=== PATIENT | male | born 1935 | race Caucasian/White ===

== ENCOUNTER 2021-01-10 07:12 | Outpatient (REF) | payer MEDICARE, SELFPAY ==
[2021-01-10 08:54] LABS: MANUAL DIFF FLAG NO
[2021-01-10 09:03] LABS: Basophils Percent Auto 0.7 % (0-2); Eosinophils Absolute Auto 0.2 X10*3/uL (0.0-0.4); Eosinophils Percent Auto 2.6 % (0-4); Hematocrit 38.1 % (42-52); Hemoglobin 12.8 g/dl (14.0-18.0); Imm Gran Abs Auto 0.02 X10*3/uL (0.00-0.03); Imm Gran Pct Auto 0.3 % (0.0-0.4); Lymphocytes Absolute Auto 1.8 X10*3/uL (1.2-4.9); Mean Corpuscular HGB Conc 33.6 g/dl (31.0-36.0); Mean Corpuscular Hemoglobin 32.2 pg (27.0-33.0); Mean Platelet Volume 9.8 fL (9.4-12.4); Monocytes Absolute Auto 0.6 X10*3/uL (0.1-1.2); Monocytes Percent Auto 10.5 % (2-11); Neutrophils Absolute Auto 3.4 X10*3/uL (2.0-8.3); Neutrophils Percent Auto 55.9 % (45-73); Platelet Count 207 X10*3/uL (160-400); Red Blood Count 3.97 X10*6/uL (4.60-5.80); Red Cell Distribution Width 12.8 % (11.0-16.0); White Blood Count 6.1 X10*3/uL (4.8-10.8)
[2021-01-10 09:13] LABS: Alanine Aminotransferase 14 U/L (0-40); Albumin Level 3.7 g/dL (3.5-5.0); Alkaline Phosphatase 82 U/L (39-117); Anion Gap 9 (12-20); Aspartate Amino Transferase 21 U/L (5-37); Bilirubin Total 0.7 mg/dL (0.0-1.0); Blood Urea Nitrogen 13 mg/dL (9-16); Calcium 9.2 mg/dL (8.4-10.2); Carbon Dioxide 29 mmol/L (22-29); Chloride 102 mmol/L (96-108); Cholesterol 169 mg/dL; Estimated Glomerular Filt Rate > 60; Glucose Fasting 92 mg/dL (60-99); HDL Cholesterol 59 mg/dL; LDL Cholesterol Calculated 95 mg/dl; Sodium 136 mmol/L (135-145); Total Protein 6.6 g/dL (6.5-8.0); Triglycerides 75 mg/dL
[2021-01-10 09:39] LABS: Prostate Specific Antigen Scr < 0.05 ng/mL (<0.05-4.0); T4 Thyroxine 5.9 ug/dL (4.5-12.0); Thyroid Stimulating Hormone 1.19 uIU/mL (0.32-4.0)
[2021-01-10 09:49] LABS: Folate 15.3 ng/mL (> or = 4.0); Vitamin B12 467 pg/mL (200-900)
== END 2021-01-10 07:13 | disposition home or self-care (01) ==
LOC: HO.LAB 07:12
PROVIDERS: PCP Internal Medicine; Visit Provider Internal Medicine
DX: Z12.5 Encounter for screening for malignant neoplasm of prostate (principal); M19.91 Primary osteoarthritis, unspecified site; D64.9 Anemia, unspecified; E78.00 Pure hypercholesterolemia, unspecified; K59.00 Constipation, unspecified; Z85.46 Personal history of malignant neoplasm of prostate
CPT/HCPCS: 36415; 80053; 80061; 82607; 82746; 84153; 84436; 84443; 85025

== ENCOUNTER 2021-01-17 09:37 | Outpatient (REF) | payer MEDICARE, SELFPAY ==
--- NOTE | ~2021-01-17 | XR_ITS ---
EXAMINATION: XR CHEST CLINICAL INFORMATION: Shortness of breath. COMPARISON: Chest 08/14/2016 TECHNIQUE: 2 views of the chest were obtained. FINDINGS: The lungs are well-expanded and clear of acute pneumonic process. The heart size and pulmonary vascularity is normal. Incidental finding of a calcified pleural plaque left midlung and right diaphragm is stable. There are punctate calcifications seen overlying the chest wall most likely related to costal cartilage. There are not visualized well on the lateral view. No acute cardiopulmonary process seen. Stable left lateral midlung and right diaphragm calcified pleural plaque.
--- NOTE | 2021-01-17 09:44 | ECG_ITS ---
Test Reason : SOB Blood Pressure : / mmHG Vent. Rate : 055 BPM Atrial Rate : 055 BPM P-R Int : 122 ms QRS Dur : 102 ms QT Int : 452 ms P-R-T Axes : 065 046 053 degrees QTc Int : 432 ms Sinus bradycardia Nonspecific ST abnormality Abnormal ECG When compared with ECG of 22-APR-2008 08:13, No significant change was found Referred By: Bobbi Harris Electronically Signed By:Tim Bryan
== END 2021-01-17 09:38 | disposition home or self-care (01) ==
LOC: HO.XRAY 09:37
PROVIDERS: PCP Internal Medicine; Visit Provider Internal Medicine
DX: R06.02 Shortness of breath (principal)
CPT/HCPCS: 71046; 93005

== ENCOUNTER → 2021-01-26 12:55 | Outpatient (BNV) | payer MEDICARE, SELFPAY | PROVIDERS: PCP Internal Medicine; Referring Provider Internal Medicine; Visit Provider Internal Medicine | DX: D64.9 Anemia, unspecified (principal) | CPT/HCPCS: 99203; 99213; 99214; G2211 ==

== ENCOUNTER 2021-04-30 07:08 | Outpatient (REF) | payer MEDICARE, SELFPAY ==
[2021-04-30 09:15] LABS: MANUAL DIFF FLAG NO
[2021-04-30 09:19] LABS: Basophils Absolute Auto 0.1 X10*3/uL (0.0-0.2); Basophils Percent Auto 0.9 % (0-2); Eosinophils Absolute Auto 0.2 X10*3/uL (0.0-0.4); Eosinophils Percent Auto 2.6 % (0-4); Hematocrit 37.1 % (42-52); Hemoglobin 12.4 g/dl (14.0-18.0); Imm Gran Abs Auto 0.02 X10*3/uL (0.00-0.03); Imm Gran Pct Auto 0.3 % (0.0-0.4); Immature Retic Fraction 6.1 % (2.3-13.4); Lymphocytes Absolute Auto 2.2 X10*3/uL (1.2-4.9); Lymphocytes Percent Auto 30.9 % (20-40); Mean Corpuscular HGB Conc 33.4 g/dl (31.0-36.0); Mean Corpuscular Hemoglobin 32.1 pg (27.0-33.0); Mean Corpuscular Volume 96.1 fL (80-98); Mean Platelet Volume 9.5 fL (9.4-12.4); Monocytes Absolute Auto 0.6 X10*3/uL (0.1-1.2); Monocytes Percent Auto 8.4 % (2-11); Neutrophils Percent Auto 56.9 % (45-73); Platelet Count 199 X10*3/uL (160-400); Red Blood Count 3.86 X10*6/uL (4.60-5.80); Red Cell Distribution Width 13.2 % (11.0-16.0); Retic HGB Equivalent 37.4 pg (30.0-35.0); Reticulocyte Percent 1.3 % (0.5-1.8); Reticulocytes Absolute 0.051 X10*6/uL (0.026-0.095); White Blood Count 7.1 X10*3/uL (4.8-10.8)
[2021-04-30 09:35] LABS: Alanine Aminotransferase 14 U/L (0-40); Albumin Level 3.6 g/dL (3.5-5.0); Alkaline Phosphatase 80 U/L (39-117); Anion Gap 11 (12-20); Aspartate Amino Transferase 18 U/L (5-37); Bilirubin Total 0.6 mg/dL (0.0-1.0); Blood Urea Nitrogen 15 mg/dL (9-16); Calcium 8.9 mg/dL (8.4-10.2); Carbon Dioxide 27 mmol/L (22-29); Chloride 101 mmol/L (96-108); Cholesterol 176 mg/dL; Estimated Glomerular Filt Rate > 60; Glucose Random 84 mg/dL (60-115); HDL Cholesterol 52 mg/dL; Iron 108 mcg/dL (45-160); LDL Cholesterol Calculated 109 mg/dl; Potassium 4.9 mmol/L (3.3-5.1); Sodium 134 mmol/L (135-145); Total Protein 6.5 g/dL (6.5-8.0); Triglycerides 77 mg/dL
[2021-04-30 09:59] LABS: Ferritin 181 ng/mL (20-250); Free T4 (Free Thyroxine) 0.85 ng/dL (0.71-1.85); PSA,Total (Free>4and<10) < 0.05 ng/mL (0.00-4.00); Thyroid Stimulating Hormone 1.15 uIU/mL (0.32-4.0)
[2021-04-30 10:10] LABS: Folate 12.1 ng/mL (> or = 4.0); Vitamin B12 279 pg/mL (200-900)
[2021-05-02 15:07] LABS: Percent Iron Saturation 43 % (15-50); Total Iron Binding Capacity 251 mcg/dL (228-428); Unsaturated Iron Binding 143 ug/dL
== END 2021-04-30 07:09 | disposition home or self-care (01) ==
LOC: HO.LAB 07:08
PROVIDERS: PCP Internal Medicine; Visit Provider Internal Medicine
DX: Z12.5 Encounter for screening for malignant neoplasm of prostate (principal); C61 Malignant neoplasm of prostate; E78.00 Pure hypercholesterolemia, unspecified
CPT/HCPCS: 36415; 80053; 80061; 82607; 82728; 82746; 83540; 84153; 84439; 84443; 85025; 85045

== ENCOUNTER 2021-08-13 07:29 | Outpatient (REF) | payer MEDICARE, SELFPAY ==
[2021-08-13 07:52] LABS: MANUAL DIFF FLAG NO
[2021-08-13 08:09] LABS: Basophils Percent Auto 0.2 % (0-2); Eosinophils Percent Auto 0.2 % (0-4); Hematocrit 39.1 % (42.0-52.0); Hemoglobin 13.1 g/dl (14.0-18.0); Imm Gran Abs Auto 0.09 X10*3/uL (0.00-0.03); Imm Gran Pct Auto 0.7 % (0.0-0.4); Immature Retic Fraction 9.3 % (2.3-13.4); Lymphocytes Absolute Auto 2.7 X10*3/uL (1.2-4.9); Lymphocytes Percent Auto 21.8 % (20-40); Mean Corpuscular HGB Conc 33.5 g/dl (31.0-36.0); Mean Corpuscular Hemoglobin 32.3 pg (27.0-33.0); Mean Corpuscular Volume 96.5 fL (80.0-98.0); Mean Platelet Volume 8.8 fL (9.4-12.4); Monocytes Percent Auto 8.3 % (2-11); Neutrophils Absolute Auto 8.6 x10*3/uL (2.0-8.3); Neutrophils Percent Auto 68.8 % (45-73); Platelet Count 269 X10*3/uL (160-400); Red Blood Count 4.05 X10*6/uL (4.60-5.80); Red Cell Distribution Width 12.8 % (11.0-16.0); Retic HGB Equivalent 37.3 pg (30.0-35.0); Reticulocyte Percent 1.5 % (0.5-1.8); White Blood Count 12.5 X10*3/uL (4.8-10.8)
[2021-08-13 08:41] LABS: Alanine Aminotransferase 23 U/L (0-40); Albumin Level 3.8 g/dL (3.5-5.0); Alkaline Phosphatase 79 U/L (39-117); Anion Gap 8 (12-20); Aspartate Amino Transferase 18 U/L (5-37); Bilirubin Total 0.7 mg/dL (0.0-1.0); Blood Urea Nitrogen 20 mg/dL (9-16); Calcium 9.7 mg/dL (8.4-10.2); Carbon Dioxide 29 mmol/L (22-29); Chloride 104 mmol/L (96-108); Cholesterol 184 mg/dL; Estimated Glomerular Filt Rate > 60; Glucose Random 95 mg/dL (60-115); HDL Cholesterol 59 mg/dL; Iron 117 mcg/dL (45-160); LDL Cholesterol Calculated 101 mg/dl; Percent Iron Saturation 40 % (15-50); Potassium 4.4 mmol/L (3.3-5.1); Sodium 137 mmol/L (135-145); Total Iron Binding Capacity 293 mcg/dL (228-428); Total Protein 6.8 g/dL (6.5-8.0); Triglycerides 121 mg/dL; Unsaturated Iron Binding 176 ug/dL
[2021-08-13 09:18] LABS: Ferritin 188 ng/mL (20-250); Free T4 (Free Thyroxine) 0.96 ng/dL (0.71-1.85); Thyroid Stimulating Hormone 1.67 uIU/mL (0.32-4.0)
[2021-08-13 09:23] LABS: Folate 9.9 ng/mL (> or = 4.0); Vitamin B12 1253 pg/mL (200-900)
[2021-08-13 09:50] LABS: Prostate Specific Antigen Scr < 0.05 ng/mL (<0.05-4.0)
== END 2021-08-13 07:30 | disposition home or self-care (01) ==
LOC: HO.LAB 07:29
PROVIDERS: PCP Internal Medicine; Visit Provider Internal Medicine
DX: Z12.5 Encounter for screening for malignant neoplasm of prostate (principal); C61 Malignant neoplasm of prostate; E78.00 Pure hypercholesterolemia, unspecified
CPT/HCPCS: 36415; 80053; 80061; 82607; 82728; 82746; 83540; 84153; 84439; 84443; 85025; 85045

== ENCOUNTER 2021-08-23 08:30 | Outpatient (REF) | payer MEDICARE, SELFPAY ==
--- NOTE | ~2021-08-23 | CT_ITS ---
EXAMINATION: CT ABDOMEN AND PELVIS WITHOUT CONTRAST CLINICAL INFORMATION: Urinary frequency COMPARISON: Previous CT of the abdomen and pelvis May 2014 TECHNIQUE: Multidetector volumetric imaging was performed from the superior aspect of the liver through the pubic symphysis. Sagittal and coronal reformatted images were obtained on the technologist's workstation. This CT examination was performed using dose optimization techniques as appropriate, variously including the following: *Automated exposure control *Adjustment of mA and/or kV according to patient size (this includes techniques or standardized protocols for targeted exams where dose is matched to indication/reason for exam; i.e. extremities or head) *Use of iterative reconstruction technique DLP: 404 mGy-cm FINDINGS: LUNG BASES: There are bilateral calcified pleural plaques. This is similar to 2014 exam. The lung bases are otherwise clear. LIVER, GALLBLADDER, AND BILIARY TREE: There are innumerable liver cysts. This does not appear appreciably changed. There is a question of a small gallstone versus focus of gallbladder wall calcification. This is new from previous exam. No biliary duct dilatation. PANCREAS: Unremarkable. SPLEEN: There is a 2 cm low-attenuation lesion in the spleen. This is stable from older exam from 2013 and probably represents a benign hemangioma. ADRENAL GLANDS: Unremarkable. KIDNEYS AND URETERS: There are innumerable bilateral renal cysts. The kidneys are otherwise unremarkable. No imaging follow-up needed. BLADDER: Unremarkable. GASTROINTESTINAL TRACT: There is diverticulosis of the colon. There is stool throughout the colon suggestive of constipation. The appendix is not seen. There are no laboratory change is seen in the right lower quadrant. ABDOMINAL WALL: There is a reservoir for penile prosthesis in the right rectus muscle. This appears unchanged. No hernia. LYMPH NODES: There is a slightly prominent low-attenuation right retrocrural lymph node measuring 1 cm axial image 15 series 3 that is unchanged. There are small low-attenuation left upper abdominal retroperitoneal lymph nodes that are upper normal in size largest measuring 1 cm in the left periaortic region axial image 22 series 3. No enlarged lymph nodes are seen. No ascites. VASCULAR: Unremarkable. PELVIC VISCERA: The prostate gland has been removed. No pelvic mass is seen. OSSEOUS STRUCTURES: There are degenerative changes of the spine. There is slight increased sclerosis of the left iliac bone, for example axial image 43 series 3. A focal lesion is not seen. This is less conspicuous than seen on prior exam. CT/CT abdomen pelvis wo con IMPRESSION: Diverticulosis of the colon and constipation. Multiple liver and bilateral renal cysts. Question small gallstone versus gallbladder wall calcification. Stable low-attenuation splenic lesion probably representing a benign hemangioma. Stable small retrocrural and upper abdominal retroperitoneal lymph nodes. Post prostatectomy. Bilateral calcified pleural plaques similar to previous exam. Fleischner guidelines were followed.
--- NOTE | ~2021-08-23 | CT_ITS ---
EXAMINATION: CT HEAD WITHOUT CONTRAST CLINICAL INFORMATION: Headache. COMPARISON: CT brain 11/26/2011. TECHNIQUE: Contiguous axial imaging was performed from the skull base to vertex without intravenous administration of contrast. This CT examination was performed using dose optimization techniques as appropriate, variously including the following: *Automated exposure control *Adjustment of mA and/or kV according to patient size (this includes techniques or standardized protocols for targeted exams where dose is matched to indication/reason for exam; i.e. extremities or head) *Use of iterative reconstruction technique DLP: 675 mGy-cm FINDINGS: There is no evidence of acute intracranial hemorrhage or territorial infarction. There is a punctate hypodensities in the right anterior internal capsule likely small lacunar infarctions; new compared to 12/06/2011 exam. No abnormal mass effect or midline shift is seen. Arguello to white matter differentiation is well preserved. No extra-axial fluid collections are identified. The lateral ventricles are symmetrical in size and configuration with moderate enlargement. There is mild prominence of cortical sulci. There is diffuse periventricular hypodensity suggestive of chronic small vessel ischemic changes. The osseous structures and soft tissues are normal. The mastoid air cells and visualized portions of the paranasal sinuses are well aerated. CT/CT head/brain wo con IMPRESSION: No acute intracranial process seen. Small lacunar infarctions anterior limb right internal capsule, new since the previous CT exam 12/06/2011. Moderate cerebral volume loss with chronic small vessel ischemic changes.
== END 2021-08-23 08:31 | disposition home or self-care (01) ==
LOC: HO.CT 08:30
PROVIDERS: PCP Internal Medicine; Visit Provider Internal Medicine
DX: R35.0 Frequency of micturition (principal); R31.9 Hematuria, unspecified; E78.00 Pure hypercholesterolemia, unspecified
CPT/HCPCS: 70450; 74176

== ENCOUNTER 2021-09-25 07:05 | Outpatient (REF) | payer MEDICARE, SELFPAY ==
[2021-09-25 08:15] LABS: Alanine Aminotransferase 19 U/L (0-40); Albumin Level 3.7 g/dL (3.5-5.0); Alkaline Phosphatase 81 U/L (39-117); Anion Gap 10 (12-20); Aspartate Amino Transferase 20 U/L (5-37); Bilirubin Total 0.5 mg/dL (0.0-1.0); Blood Urea Nitrogen 13 mg/dL (9-16); Calcium 9.5 mg/dL (8.4-10.2); Carbon Dioxide 29 mmol/L (22-29); Chloride 104 mmol/L (96-108); Cholesterol 189 mg/dL; Estimated Glomerular Filt Rate > 60; Glucose Random 96 mg/dL (60-115); HDL Cholesterol 56 mg/dL; LDL Cholesterol Calculated 108 mg/dl; Potassium 4.8 mmol/L (3.3-5.1); Sodium 138 mmol/L (135-145); Triglycerides 126 mg/dL
== END 2021-09-25 07:06 | disposition home or self-care (01) ==
LOC: HO.LAB 07:05
PROVIDERS: PCP Internal Medicine; Visit Provider Internal Medicine
DX: E78.00 Pure hypercholesterolemia, unspecified (principal)
CPT/HCPCS: 36415; 80053; 80061

== ENCOUNTER 2021-12-18 07:18 | Outpatient (REF) | payer MEDICARE, SELFPAY ==
[2021-12-18 07:40] LABS: MANUAL DIFF FLAG NO
[2021-12-18 08:01] LABS: Basophils Absolute Auto 0.1 X10*3/uL (0.0-0.2); Basophils Percent Auto 0.5 % (0-2); Eosinophils Percent Auto 0.4 % (0-4); Hematocrit 38.7 % (42.0-52.0); Hemoglobin 12.9 g/dl (14.0-18.0); Imm Gran Abs Auto 0.07 X10*3/uL (0.00-0.03); Imm Gran Pct Auto 0.8 % (0.0-0.4); Lymphocytes Absolute Auto 2.3 X10*3/uL (1.2-4.9); Lymphocytes Percent Auto 24.8 % (20-40); Mean Corpuscular HGB Conc 33.3 g/dl (31.0-36.0); Mean Corpuscular Hemoglobin 32.4 pg (27.0-33.0); Mean Corpuscular Volume 97.2 fL (80.0-98.0); Mean Platelet Volume 8.4 fL (9.4-12.4); Monocytes Absolute Auto 0.8 X10*3/uL (0.1-1.2); Neutrophils Percent Auto 64.5 % (45-73); Platelet Count 224 X10*3/uL (160-400); Red Blood Count 3.98 X10*6/uL (4.60-5.80); Red Cell Distribution Width 12.5 % (11.0-16.0); White Blood Count 9.3 X10*3/uL (4.8-10.8)
[2021-12-18 08:23] LABS: Alanine Aminotransferase 18 U/L (0-40); Albumin Level 3.5 g/dL (3.5-5.0); Alkaline Phosphatase 87 U/L (39-117); Anion Gap 10 (12-20); Aspartate Amino Transferase 18 U/L (5-37); Bilirubin Total 0.5 mg/dL (0.0-1.0); Blood Urea Nitrogen 13 mg/dL (9-16); Calcium 9.4 mg/dL (8.4-10.2); Carbon Dioxide 28 mmol/L (22-29); Chloride 98 mmol/L (96-108); Cholesterol 163 mg/dL; Estimated Glomerular Filt Rate > 60; Glucose Random 92 mg/dL (60-115); HDL Cholesterol 56 mg/dL; LDL Cholesterol Calculated 94 mg/dl; Potassium 4.4 mmol/L (3.3-5.1); Sodium 132 mmol/L (135-145); Total Protein 6.5 g/dL (6.5-8.0); Triglycerides 67 mg/dL
[2021-12-18 08:51] LABS: Prostate Specific Antigen < 0.05 ng/mL (<0.05-4.0)
== END 2021-12-18 07:19 | disposition home or self-care (01) ==
LOC: HO.LAB 07:18
PROVIDERS: PCP Internal Medicine; Visit Provider Internal Medicine
DX: Z12.5 Encounter for screening for malignant neoplasm of prostate (principal); E78.00 Pure hypercholesterolemia, unspecified; C61 Malignant neoplasm of prostate
CPT/HCPCS: 36415; 80053; 80061; 84153; 85025

== ENCOUNTER 2022-01-11 08:03 | Emergency (ER) | payer MEDICARE, SELFPAY ==
[2022-01-11] VITALS (14 sets, daily range): BP systolic 121–176; BP diastolic 73–101; PULSE 66–98; RESP 14–18; TEMP 36.4–36.6; O2SAT 96–99; BMI 20.8
--- NOTE | ~2022-01-11 | CT_ITS ---
EXAMINATION: CT CHEST WITHOUT CONTRAST CLINICAL INFORMATION: Weakness. Suspected pneumonia. COMPARISON: Chest radiograph done on 01/17/2021. TECHNIQUE: Multidetector volumetric CT imaging of the chest was done. Axial MIP volume rendering provided. Sagittal and coronal reformatted images were obtained. This CT examination was performed using dose optimization techniques as appropriate, variously including the following: *Automated exposure control *Adjustment of mA and/or kV according to patient size (this includes techniques or standardized protocols for targeted exams where dose is matched to indication/reason for exam; i.e. extremities or head) *Use of iterative reconstruction technique DLP: 273.98 mGy-cm FINDINGS: RIGGING SLINGER: Multiple calcified pleural plaques are present bilaterally, similar to prior chest radiograph done on 01/17/2021. LUNGS: A few scattered bilateral multilobar mostly calcified lung parenchymal nodules are noted, most consistent with granulomas. No evidence of any dense airspace consolidation or mass. The tracheobronchial tree is patent. MEDIASTINUM: The mediastinum is normal. PLEURA: Numerous predominantly calcified bilateral extensive pleural plaques are noted including peridiaphragmatic calcified plaques. 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 No evidence of any pleural mass or pleural effusion. AXILLA: No lymphadenopathy. UPPER ABDOMEN: Remarkable for lobulated circumscribed hypodense lesion along the subdiaphragmatic surface of the liver. Additional similar-appearing circumscribed multifocal hypodense lesions are also noted within the remainder of the liver, unchanged since prior study dated 08/23/2021. The dominant subdiaphragmatic lesion currently measures approximately 4.5 cm at its maximum dimension with Hounsfield value of 17, consistent with cyst. OSSEOUS STRUCTURES: No suspicious focal lesion. CT/CT chest wo con IMPRESSION: 1. Numerous predominantly calcified bilateral extensive pleural plaques are noted including peridiaphragmatic calcified plaque throughout the entire chest, most consistent with asbestosis. No evidence of any pleural based soft tissue mass or pleural effusion. 2. A few scattered bilateral multilobar mostly calcified lung parenchymal nodules are also noted, most consistent with granulomatous disease. No evidence of any dense airspace consolidation or mass. 3. Stable multiple hepatic cysts. Fleischner guidelines were followed.
--- NOTE | ~2022-01-11 | CT_ITS ---
EXAMINATION: CT CERVICAL SPINE WITHOUT CONTRAST CLINICAL INFORMATION: Neck pain status post fall. COMPARISON: None TECHNIQUE: Multiple axial images of the cervical spine were obtained without the administration of intravenous contrast. Coronal and sagittal reformatted images were obtained. This CT examination was performed using dose optimization techniques as appropriate, variously including the following: *Automated exposure control *Adjustment of mA and/or kV according to patient size (this includes techniques or standardized protocols for targeted exams where dose is matched to indication/reason for exam; i.e. extremities or head) *Use of iterative reconstruction technique DLP: 346.95 mGy-cm FINDINGS: There is normal cervical lordosis and spinal alignment. 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 The odontoid process is intact with mild to moderate articular degenerative changes. The neural foramina are patent. Mild multilevel bilateral facet arthropathy seen. The spinous processes are intact. The cervical soft tissues are unremarkable. There is no lymphadenopathy. The visualized thyroid gland is unremarkable. Mild biapical scarring without abnormality. CT/CT cervical spine wo con IMPRESSION: Mild to moderate multilevel degenerative changes without acute abnormality. Fleischner guidelines were followed.
--- NOTE | ~2022-01-11 | XR_ITS ---
EXAMINATION: CR X-RAY LUMBAR SPINE, SACRUM CLINICAL INFORMATION: Back pain status post fall. COMPARISON: None TECHNIQUE: 3 views each of the lumbar spine and sacrum were obtained. FINDINGS: Generalized osteopenia. Mild to moderate multilevel degenerative changes are seen in the lumbar spine most pronounced at L4-L5 with minimal grade 1 anterolisthesis. Mild multilevel facet arthropathy seen bilaterally, most pronounced at L4-L5 and L5-S1. There is normal sacrococcygeal curvature. No acute fractures seen. The soft tissues are unremarkable. Multiple surgical clips overlie the inferior pelvis. XR/XR lumbar spine 2-3V IMPRESSION: Generalized osteopenia and multilevel degenerative changes in the lumbar spine without acute abnormality. Minimal grade 1 anterolisthesis at L4-L5 is likely degenerative in nature.
--- NOTE | ~2022-01-11 | CT_ITS ---
EXAMINATION: CT HEAD WITHOUT CONTRAST CLINICAL INFORMATION: Weakness, fall. Rule out intracranial abnormality. COMPARISON: 08/23/[address] scan. TECHNIQUE: Contiguous axial imaging was performed from the skull base to vertex without intravenous administration of contrast. Coronal and sagittal reformatted images were obtained. This CT examination was performed using dose optimization techniques as appropriate, variously including the following: *Automated exposure control *Adjustment of mA and/or kV according to patient size (this includes techniques or standardized protocols for targeted exams where dose is matched to indication/reason for exam; i.e. extremities or head) *Use of iterative reconstruction technique DLP: 1386 mGy-cm FINDINGS: There is mild widening of the cortical sulci and associated ventriculomegaly. Mild periventricular microvascular changes are seen. The lateral ventricles are symmetrical. The third and fourth ventricles are in their normal midline position. The basilar and prepontine cisterns are unremarkable. There is no acute intra or extracerebral abnormality. There is no mass effect or midline shift. Sections through the bony calvarium are unremarkable. The orbits are intact. The paranasal sinuses show retention cyst versus inflammatory polyps at the bases of the maxillary sinuses bilaterally. The mastoid air cells are clear. CT/CT head/brain wo con IMPRESSION: No acute intracranial pathology.
--- NOTE | ~2022-01-11 | XR_ITS ---
EXAMINATION: CR X-RAY LUMBAR SPINE, SACRUM CLINICAL INFORMATION: Back pain status post fall. COMPARISON: None TECHNIQUE: 3 views each of the lumbar spine and sacrum were obtained. FINDINGS: Generalized osteopenia. Mild to moderate multilevel degenerative changes are seen in the lumbar spine most pronounced at L4-L5 with minimal grade 1 anterolisthesis. Mild multilevel facet arthropathy seen bilaterally, most pronounced at L4-L5 and L5-S1. There is normal sacrococcygeal curvature. No acute fractures seen. The soft tissues are unremarkable. Multiple surgical clips overlie the inferior pelvis. XR/XR sacrum coccyx min 2V IMPRESSION: Generalized osteopenia and multilevel degenerative changes in the lumbar spine without acute abnormality. Minimal grade 1 anterolisthesis at L4-L5 is likely degenerative in nature.
--- NOTE | 2022-01-11 09:05 | ECG_ITS ---
Test Reason : weakness Blood Pressure : / mmHG Vent. Rate : 079 BPM Atrial Rate : 079 BPM P-R Int : 216 ms QRS Dur : 104 ms QT Int : 392 ms P-R-T Axes : 062 024 063 degrees QTc Int : 449 ms Sinus rhythm with 1st degree A-V block Otherwise normal ECG When compared with ECG of 17-JAN-2021 10:02, VA interval has increased Referred By: Tab Cummins Electronically Signed By:EFREM BAY MD
[2022-01-11] MEDS: 0.9 % Sodium Chloride 1,000 ML 999 ML IV (09:27)
--- NOTE | 2022-01-11 09:44 | ED_ITS ---
HPI - General Adult General Chief complaint: Fall Stated complaint: Fall t-1, weakness Time Seen by Provider: 01/11/22 08:47 Source: patient Mode of arrival: ambulatory Limitations: no limitations History of Present Illness HPI narrative: 87-year-old male with past medical history of unsteady gait for the past 6 mo nths, BPH, CVA, anxiety/depression, prostate cancer cured, and hyper cholesterolemia presents to ED for fall yesterday and weakness for the past 6 months with decreased appetite. Patient states yesterday he was sitting down when he stood up take a step and his legs feel weak which caused him to fall onto his buttocks. Patient states he grabbed the handle on the gazebo to break his fall. Patient denies hitting head or loss of consciousness. Patient denies having any chest pain, shortness of breath, abdominal pain, headache, facial droop, loss of vision, slurred speech, passing out or any paralysis of extremities. Patient states having trouble with his gait you due to legs at time given out or feeling weak has been occurring for the past 6 months. Patient also states having loss of appetite and generalized weakness for the past 6 months. Patient states primary care provider is not sure was going on. Daughter states patient's and patient has been going to depression and has been choosing not to eat due to lack of interest in eating. She states when patient is in social [place] he feels better and eats but the past couple months he has been alone and has caused him to going to depression. Daughter believes depression is due to patient not eating which is leading to his generalized weakness. Daughter states patient did not eat yesterday. Patient admits not eating yesterday. Related Data Home Medications Medication Instructions Recorded Confirmed cholecalciferol (vitamin D3) 25 25 mcg PO DAILY 01/17/21 01/01/22 mcg (1,000 unit) capsule desmopressin 0.1 mg tablet 0.1 mg PO BEDTIME tab 01/17/21 01/01/22 Previous Rx's Medication Instructions Recorded ascorbic acid (vitamin C) 1,000 mg 1,000 mg PO Q12H #30 tab 11/15/20 tablet,extended release aspirin 81 mg tablet,delayed 81 mg PO DAILY #14 tab 11/15/20 release (Adult Low Dose Aspirin) glucosamine HCl 500 mg tablet 500 mg PO DAILY #20 tab 11/15/20 oxybutynin chloride 15 mg 30 mg PO DAILY #7 tab 11/15/20 tablet,extended release 24 hr triamcinolone acetonide 0.5 % 1 appl TOPICAL BID #15 g 05/04/21 topical cream atorvastatin 80 mg tablet 80 mg PO DAILY 30 Days #90 tab 12/31/21 sennosides 8.6 mg-docusate sodium 2 tab-cap PO BEDTIME 30 Days #60 01/01/22 50 mg tablet (Senna Plus) tab sertraline 25 mg tablet 25 mg PO DAILY #30 tab 01/01/22 celecoxib 200 mg capsule 200 mg PO DAILY #30 cap 01/04/22 psyllium husk-calcium 1 gram-60 mg 1 cap PO DAILY 30 Days #30 cap 01/04/22 capsule (Metamucil Plus Calcium) Allergies Allergy/AdvReac Type Severity Reaction Status Date / Time No Known Allergies Allergy Mild N/A Verified 01/01/22 09:18 Review of Systems Review of Systems: Generalized weakness for the past 6 months. Loss of appetite for the past 6 months. Depression. Fall unto buttocks. Yes all other systems are reviewed and are negative [facility] Past Medical History Medical History (Updated 01/11/22 @ 17:14 by FRANCIA Barakat) Anxiety and depression Hypercholesterolemia Low sodium levels Osteoarthritis, shoulder Prostate cancer Venous insufficiency Surgical History Erectile dysfunction following urethral surgery History of radical prostatectomy Social History Social History (Updated 10/02/21 @ 09:02 by Danitza Goodman) Housing: House Alcohol intake: current Alcohol intake frequency: a few times a month Patient Tobacco Use Status: Never used Tobacco e-Cigarette/Vaping Use: Never Used Second Hand Smoke Exposure: No Advance Directives Date on File: 08/24/21 service: Yes Current occupational status: retired 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, [employer] Cognitive needs: No Hearing needs: No Vision needs: Yes Physical Exam ED Vital Signs: Vital Signs - 24 hr 01/11/22 08:05 01/11/22 09:23 01/11/22 10:41 Temperature 97.6 F Pulse Rate 88 84 72 Respiratory Rate 17 16 Blood Pressure 133/93 H 165/101 H 176/87 H Pulse Oximetry 97 96 01/11/22 11:45 01/11/22 11:47 01/11/22 13:51 Temperature Pulse Rate 72 84 66 Respiratory Rate Blood Pressure 129/75 173/84 H Pulse Oximetry 97 01/11/22 13:52 01/11/22 13:53 01/11/22 13:55 Temperature Pulse Rate 70 82 Respiratory Rate Blood Pressure 158/85 H 133/82 133/82 Pulse Oximetry 01/11/22 15:23 01/11/22 16:29 01/11/22 16:30 Temperature 97.9 F Pulse Rate 73 82 89 Respiratory Rate 14 Blood Pressure 145/89 H 130/73 132/85 Pulse Oximetry 97 01/11/22 16:31 01/11/22 16:33 Temperature 97.7 F Pulse Rate 98 81 Respiratory Rate 18 Blood Pressure 121/78 130/73 Pulse Oximetry 99 BMI result Body Mass Index 20.8 Const General: cooperative, healthy appearing, comfortable, no acute distress, well developed, alert, awake and Physically active Orientation/consciousness: patient oriented x3 HENMT Head: Yes normal to inspection, Yes No palpable skull fracture present, Yes normocephalic and Yes atraumatic Ears: hearing grossly normal bilaterally, external ears normal, TM's normal bilaterally, EAC's normal, mastoids normal and no periauricular adenopathy Eyes General: appearance normal, both eyes and all related structures Neck Neck: Yes normal visual inspection, Yes full ROM, Yes no lymphadenopathy, Yes no meningeal signs, Yes trachea midline, Yes supple, No anterior neck swelling and No tender Chest Chest palpation & inspection: normal inspection of the chest and normal palpation of entire chest wall Resp Effort & Inspection: normal respiratory effort and able to speak in complete sentences Auscultation: clear to auscultation bilaterally Cardio Jugular venous distension: no JVD Heart sounds: S1 normal heart sound present and S2 normal heart sound present GI Inspection: Yes normal to inspection and No abdominal wall ecchymosis Palpation (GI): Soft to palpation, not firm, nontender, no guarding and not rigid General: No CVA tenderness and Yes no CVA tenderness Back/Spine/Pelvis Back: no CVA tenderness, No CVA tenderness and No back tenderness Skin General skin exam: no rashes or lesions noted and elasticity normal Neuro Other: Negative for any facial droop. Negative for slurred speech. Negative pronator drift. All extremities equal strength 5+. Negative Romberg. [id number] rapid eye movement intact. General: patient oriented x3, gait normal (baseline ambulate with cane), no meningeal signs and CN's II-XI intact bilaterally Extrem Other: Negative for any swelling, pitting edema, calf tenderness General: Yes normal to inspection and Yes full ROM Psych Appearance: grossly normal, well kempt and not disheveled NIH Stroke Scale Internal: Initial- Upon Arrival Level of Consciousness: Alert Level of Consciousness Questions: Answers both questions correctly Level of Consciousness Commands: Performs both tasks correctly Best Gaze: Normal Visual: No visual loss Facial Palsy: Normal Motor Arm (Right): No drift Motor Arm (Left): No drift Motor Leg (Right): No drift Motor Leg (Left): No drift Limb Ataxia: Absent Sensory: Normal Best Language: No aphasia Dysarthia: Normal Extinction and Inattention: No abnormality Score: 0 Course Course Course Narrative: Patient's symptoms are mechanical fall but will do medical evaluation due to weakness me she does not electrolyte deficiency and cardiac activity. Negative for any neuro deficits but will do head CT scan due to fall not being witnessed. Reevaluation(s) Reevaluation #1: Patient positive orthostatics. Sodium 129. First troponin negative. EKG negative STEMI. Symptoms most likely due to the hydration from not eating. Images are normal and negative for any fractures or brain bleed chest CT negative for any pneumonia but does shows epis ptosis. Patient has no respiratory complaints. Time: 12:50 Reevaluation #2: Orthostatics improved and hyponatremia resolved. Symptoms were due to dehydration. Presently no need for admission. Daughter called and informed patient should be encouraged to eat and drink fluids and should follow up with primary care provider. She was also informed patient he needs to be evaluated by his primary care for depression. Time: 17:10 Medical Decision Making MDM Narrative Medical decision making narrative: Dehydration orthostatic hypotension resolved Lab Data Result diagrams: 01/11/22 09:34 01/11/22 14:02 Labs: Lab Results 01/11/22 01/11/22 01/11/22 Range/Units 09:34 09:34 09:34 WBC 6.6 (4.8-10.8) X10*3/uL RBC 4.01 L (4.60-5.80) X10*6/uL Hgb 13.0 L (14.0-18.0) g/dl Hct 37.4 L (42.0-52.0) % MCV 93.3 (80.0-98.0) fL MCH 32.4 (27.0-33.0) pg MCHC 34.8 (31.0-36.0) g/dl RDW 12.4 (11.0-16.0) % Plt Count 220 (160-400) X10*3/uL MPV 8.8 L (9.4-12.4) fL Immature Gran % (Auto) 0.5 H (0.0-0.4) % Neut % (Auto) 64.0 (45-73) % Lymph % (Auto) 21.8 (20-40) % [place] % (Auto) 12.6 H (2-11) % Eos % (Auto) 0.6 (0-4) % Baso % (Auto) 0.5 (0-2) % Lymph # (Auto) 1.4 (1.2-4.9) X10*3/uL [place] # (Auto) 0.8 (0.1-1.2) X10*3/uL Eos # (Auto) 0.0 (0.0-0.4) X10*3/uL Baso # (Auto) 0.0 (0.0-0.2) X10*3/uL Abs Immat Gran (auto) 0.03 (0.00-0.03) X10*3/uL Absolute Neuts (auto) 4.2 (2.0-8.3) x10*3/uL Absolute Nucleated RBC 0.000 (0.0-0.012) X10*3/uL Nucleated RBC % (auto) 0.0 (0.0-0.2) /100WBC Sodium 129 L (135-145) mmol/L Potassium 4.8 (3.3-5.1) mmol/L Chloride 95 L (96-108) mmol/L Carbon Dioxide 28 (22-29) mmol/L Anion Gap 11 L (12-20) BUN 9 (9-16) mg/dL Creatinine 0.82 (0.5-1.4) mg/dL Estim Creat Clear Calc 60.1 Estimated GFR > 60 Random Glucose 92 (60-115) mg/dL Calcium 9.6 (8.4-10.2) mg/dL Magnesium 2.3 (1.6-2.6) mg/dL Total Bilirubin 0.6 (0.0-1.0) mg/dL AST 20 (5-37) U/L ALT 16 (0-40) U/L Alkaline Phosphatase 82 (39-117) U/L Total Creatine Kinase 93 (38-174) U/L Troponin I High Sens 4.7 (<3.5-35.0) ng/L Total Protein 6.7 (6.5-8.0) g/dL Albumin 3.6 (3.5-5.0) g/dL Lipase 29 (8-78) U/L Urine Color Urine Appearance Urine pH (5.0-8.0) Ur Specific [place] (1.005-1.025) Urine Protein (NEG-TRACE) MG/DL Urine Glucose (UA) (NEG) MG/DL Urine Ketones (NEG) MG/DL Urine Blood (NEG) Urine Nitrite (NEG) Ur Leukocyte Esterase (NEG) Urine RBC (0) /HPF Urine WBC (0-4) /HPF Ur Squamous Epith Cells /LPF Urine Bacteria /LPF 01/11/22 01/11/22 01/11/22 Range/Units 09:34 14:02 14:02 WBC (4.8-10.8) X10*3/uL RBC (4.60-5.80) X10*6/uL Hgb (14.0-18.0) g/dl Hct (42.0-52.0) % MCV (80.0-98.0) fL MCH (27.0-33.0) pg MCHC (31.0-36.0) g/dl RDW (11.0-16.0) % Plt Count (160-400) X10*3/uL MPV (9.4-12.4) fL Immature Gran % (Auto) (0.0-0.4) % Neut % (Auto) (45-73) % Lymph % (Auto) (20-40) % [place] % (Auto) (2-11) % Eos % (Auto) (0-4) % Baso % (Auto) (0-2) % Lymph # (Auto) (1.2-4.9) X10*3/uL [place] # (Auto) (0.1-1.2) X10*3/uL Eos # (Auto) (0.0-0.4) X10*3/uL Baso # (Auto) (0.0-0.2) X10*3/uL Abs Immat Gran (auto) (0.00-0.03) X10*3/uL Absolute Neuts (auto) (2.0-8.3) x10*3/uL Absolute Nucleated RBC (0.0-0.012) X10*3/uL Nucleated RBC % (auto) (0.0-0.2) /100WBC Sodium 135 (135-145) mmol/L Potassium 4.5 (3.3-5.1) mmol/L Chloride 101 (96-108) mmol/L Carbon Dioxide 28 (22-29) mmol/L Anion Gap 11 L (12-20) BUN 7 L (9-16) mg/dL Creatinine 0.73 (0.5-1.4) mg/dL Estim Creat Clear Calc 67.6 Estimated GFR > 60 Random Glucose 92 (60-115) mg/dL Calcium 9.2 (8.4-10.2) mg/dL Magnesium (1.6-2.6) mg/dL Total Bilirubin (0.0-1.0) mg/dL AST (5-37) U/L ALT (0-40) U/L Alkaline Phosphatase (39-117) U/L Total Creatine Kinase (38-174) U/L Troponin I High Sens 4.7 (<3.5-35.0) ng/L Total Protein (6.5-8.0) g/dL Albumin (3.5-5.0) g/dL Lipase (8-78) U/L Urine Color YELLOW Urine Appearance CLEAR Urine pH 6.5 (5.0-8.0) Ur Specific [place] <= 1.005 (1.005-1.025) Urine Protein NEG (NEG-TRACE) MG/DL Urine Glucose (UA) NEG (NEG) MG/DL Urine Ketones NEG (NEG) MG/DL Urine Blood 1+ H (NEG) Urine Nitrite NEG (NEG) Ur Leukocyte Esterase NEG (NEG) Urine RBC 1-4 (0) /HPF Urine WBC 0 (0-4) /HPF Ur Squamous Epith Cells NONE /LPF Urine Bacteria NONE /LPF ECG Data Interpretation: Sinus rhythm with 1st degree AV block. Ventricular rate 79. Pr interval 216. QRS 104 pr QTC 449. Negative STEMI Discharge Plan Discharge Clinical Impression: Acute dehydration Patient Disposition: Home, Self-Care Instructions: Dehydration (ED) Additional Instructions: Your EKG and blood work came back negative for heart attack. Your symptoms are due to dehydration which caused your blood pressure to initially dropped. Your blood pressure corrected with IV fluids. Hours encourage you to drink fluids and eat food. Please follow-up with your primary care provider. Return to the ED for any slurred speech, facial droop, paralysis of extremities, dizziness, headache, chest pain, shortness of breath, nausea, vomiting, leg swelling, calf pain, dysuria, hematuria, or any other concerning symptoms. Prescriptions: No Action oxybutynin chloride 15 mg tablet extended release 24 hr 30 mg PO DAILY Qty: 7 0RF ascorbic acid (vitamin C) 1,000 mg tablet extended release 1,000 mg PO Q12H Qty: 30 0RF glucosamine HCl 500 mg tablet 500 mg PO DAILY Qty: 20 0RF Rx Instructions: administer with a meal aspirin [Adult Low Dose Aspirin] 81 mg tablet,delayed release (DR/EC) 81 mg PO DAILY Qty: 14 0RF atorvastatin 80 mg tablet 80 mg PO DAILY 30 Days Qty: 90 3RF celecoxib 200 mg capsule 200 mg PO DAILY Qty: 30 0RF Metamucil Plus Calcium 1-60 gram-mg capsule 1 cap PO DAILY 30 Days Qty: 30 11RF Rx Instructions: administer with large glass of water cholecalciferol (vitamin D3) 25 mcg (1,000 unit) capsule 25 mcg PO DAILY 0RF desmopressin 0.1 mg tablet 0.1 mg PO BEDTIME 0RF triamcinolone acetonide 0.5 % cream 1 appl topical BID Qty: 15 1RF sertraline 25 mg tablet 25 mg PO DAILY Qty: 30 2RF sennosides-docusate sodium [Senna Plus] 8.6-50 mg tablet 2 tab-cap PO BEDTIME 30 Days Qty: 60 7RF Interventions: ED Discharge Assessment Last Done: 01/11/22 17:58 Discharge Date/Time: 01/11/22 17:58 Print Language: Bhutanese
[2022-01-11 09:45] LABS: MANUAL DIFF FLAG NO
[2022-01-11 09:51] LABS: Appearance Urine CLEAR; Color Urine YELLOW; Glucose Urine UA NEG (NEG); Leukocyte Esterase Urine NEG (NEG); Nitrite Urine NEG (NEG); PH 6.5 (5.0-8.0); Specific Gravity - Urine <= 1.005 (1.005-1.025); UACC Culture Trigger NO; Urine Blood 1+ (NEG); Urine Ketones NEG (NEG); Urine Protein NEG (NEG-TRACE)
[2022-01-11 09:52] LABS: Basophils Percent Auto 0.5 % (0-2); Eosinophils Percent Auto 0.6 % (0-4); Hematocrit 37.4 % (42.0-52.0); Imm Gran Abs Auto 0.03 X10*3/uL (0.00-0.03); Imm Gran Pct Auto 0.5 % (0.0-0.4); Lymphocytes Absolute Auto 1.4 X10*3/uL (1.2-4.9); Lymphocytes Percent Auto 21.8 % (20-40); Mean Corpuscular HGB Conc 34.8 g/dl (31.0-36.0); Mean Corpuscular Hemoglobin 32.4 pg (27.0-33.0); Mean Corpuscular Volume 93.3 fL (80.0-98.0); Mean Platelet Volume 8.8 fL (9.4-12.4); Monocytes Absolute Auto 0.8 X10*3/uL (0.1-1.2); Monocytes Percent Auto 12.6 % (2-11); Neutrophils Absolute Auto 4.2 x10*3/uL (2.0-8.3); Platelet Count 220 X10*3/uL (160-400); Red Blood Count 4.01 X10*6/uL (4.60-5.80); Red Cell Distribution Width 12.4 % (11.0-16.0); White Blood Count 6.6 X10*3/uL (4.8-10.8)
[2022-01-11 10:03] LABS: Alanine Aminotransferase 16 U/L (0-40); Albumin Level 3.6 g/dL (3.5-5.0); Alkaline Phosphatase 82 U/L (39-117); Anion Gap 11 (12-20); Aspartate Amino Transferase 20 U/L (5-37); Bilirubin Total 0.6 mg/dL (0.0-1.0); Blood Urea Nitrogen 9 mg/dL (9-16); Calcium 9.6 mg/dL (8.4-10.2); Carbon Dioxide 28 mmol/L (22-29); Chloride 95 mmol/L (96-108); Creatinine Clr Calc Pharmacy 60.1; Estimated Glomerular Filt Rate > 60; Glucose Random 92 mg/dL (60-115); Lipase 29 U/L (8-78); Magnesium 2.3 mg/dL (1.6-2.6); Potassium 4.8 mmol/L (3.3-5.1); Sodium 129 mmol/L (135-145); Total Protein 6.7 g/dL (6.5-8.0)
[2022-01-11 10:04] LABS: WBC Urine 0 /HPF (0-4)
[2022-01-11 10:08] LABS: Troponin-I High Sensitivity 4.7 ng/L (<3.5-35.0)
[2022-01-11] MEDS: 0.9 % Sodium Chloride 500 ML IV (12:47)
[2022-01-11 14:29] LABS: Anion Gap 11 (12-20); Blood Urea Nitrogen 7 mg/dL (9-16); Calcium 9.2 mg/dL (8.4-10.2); Carbon Dioxide 28 mmol/L (22-29); Chloride 101 mmol/L (96-108); Creatinine Clr Calc Pharmacy 67.6; Estimated Glomerular Filt Rate > 60; Glucose Random 92 mg/dL (60-115); Potassium 4.5 mmol/L (3.3-5.1); Sodium 135 mmol/L (135-145)
[2022-01-11 14:36] LABS: Troponin-I High Sensitivity 4.7 ng/L (<3.5-35.0)
== END 2022-01-11 17:58 | disposition home or self-care (01) ==
PROVIDERS: Physician Assistant; Emergency Provider Emergency Medicine Emergency Medical Services; PCP Internal Medicine
DX: E86.0 Dehydration (principal); E87.1 Hypo-osmolality and hyponatremia; M54.2 Cervicalgia; M54.9 Dorsalgia, unspecified; I44.0 Atrioventricular block, first degree; Z86.73 Personal history of transient ischemic attack (TIA), and cerebral infarction without residual deficits; Z91.81 History of falling
CPT/HCPCS: 36415; 70450; 71250; 72100; 72125; 72220; 80048; 80053; 81001; 82550; 83690; 83735; 84484; 85025; 93005; 96360; 96361; 99284

== ENCOUNTER → 2022-02-26 08:13 | Outpatient (REF) | payer MEDICARE, SELFPAY ==
--- NOTE | 2022-02-26 08:17 | CA_ITS ---
Transthoracic Echocardiogram Patient (Last, First, Middle): Sukhwinder Maynard L Gender: Male Date of : 1935 Age: 87 Procedure Date: 02/26/2022 Procedure Type: Transthoracic Echocardiogram Location: OP Height: 177.8 cm Weight: 63.5 kg BSA: 1.79 m2 Heart Rate: 57 bpm BP: 132 / 64 mmHg Collector: SB Referring MD: Bobbi Harris MD Benefits Consulting Analyst: Wilson Thakur MD Symptoms: I63.9 - Cerebral infarction, unspecified Study Quality: Adequate ECG Rhythm: Bradycardia Conclusions: - 1. Normal LV systolic function with impaired relaxation filling pattern 2. Mild aortic and mitral regurgitation 3. No gross pericardial effusion Findings Left Ventricle Normal left ventricular size, thickness, and systolic function. The visually estimated ejection fraction is between 55-60%. Spectral Doppler is indicative of an impaired relaxation filling pattern. E/E prime ratio is between 8 and 15 consistent with indeterminate filling pressures. Right Ventricle Normal right ventricular cavity size and systolic function. Atria The left atrium is normal in size. There is lipomatous hypertrophy of the interatrial septum. There is no evidence of interatrial shunt. The right atrium is normal in size. Aortic Valve There is mild calcification of the aortic valve. There is no aortic valve stenosis. There is mild aortic valve regurgitation. Mitral Valve There is mild anterior and posterior mitral leaflet thickening. There is mild mitral valve regurgitation. There is no mitral valve stenosis. Pulmonic Valve The pulmonic valve was not well visualized. Tricuspid Valve Likely normal tricuspid valve structure and function. Tricuspid regurgitation envelope is inadequate for calculation of right ventricular systolic pressure. Normal right atrial pressure. Great Vessels The aorta was not well visualized. The pulmonary artery was not well visualized. Venous The inferior vena cava is normal in size and collapses greater than 50% with inspiration. Pericardium/Pleural There is no evidence of pericardial effusion. Prior Study Comparison No significant change compared to prior study dated: 12/12/2011. Measurements 2D Linear Measurements IVSd: 1.30 0.6-0.9/0.6-1.0 cm LVIDd: 4.42 3.9-5.3/4.2-5.9 cm LVIDd Index: 2.47 2.4-3.2/2.2-3.1 cm/m2 LVIDs: 3.14 2.0-3.6 cm LVPWd: 0.84 0.7-1.1 cm LA Diam: 2.50 2.7-3.8/3.0-4.0 cm LAIDs Index: 1.40 1.5-2.3 cm/m2 LV Mass: 204.32 67-162/88-224 g LV Mass Index: 114.15 43-95/49-115 g/m2 LVOT Diam: 2.30 3.0+(-)1.3 cm 2D Systolic Function EF 4C: 60.60 >55% EF 2C: 52.00 >55% EF BiP: 56.70 >55% Mitral Valve MV Pk E: 0.66 MV PK A: 0.91 MV Decel Time: 372.00 E/A: 0.70 E'Lateral: 5.00 E'Medial: 4.24 E/E' Med: 15.50 E/E' Lat: 13.10 PHT: 109.00 MVA PHT: 2.02 Decel Ceiba: 1.76 Aortic Valve AoV Pk Junior: 1.52 AoV Mn Junior: 1.10 AoV VTI: 0.37 AoV Pk Grad: 9.00 Aov Mn Grad: 5.00 ROSIE Cont.VTI: 2.65 LVOT LVOT Pk Junior: 0.95 LVOT Mn Junior: 0.65 LVOT VTI: 0.23 LVOT Pk Grad: 4.00 LVOT Mn Grad: 2.00 LVOT Diam: 2.30 LVOT Area: 4.15 Diastolic Function MV Pk E: 0.66 MV Pk A: 0.91 E/A: 0.70 E'Medial: 4.24 E/E' Med: 15.50 E' Laterial: 5.00 E/E' Lat: 13.10 Right Ventricle TAPSE (mm): 22.60 TVS' Junior: 9.50 Tricuspid Valve RA Press: 3.00 Great Vessels Aorta Sinus of Valsalva: 3.60 2.0-3.5 cm Ao Asc: 3.50 2.1-3.4 cm Pulmonary Valve PV Pk Junior: 0.69 Peak PV Grad: 2.00 Updated in Other Vendor System with Status of Final Wilson Thakur MD electronically signed on 02/27/2022 3:56:42 PM with status of Final
== END ==
LOC: HO.CARD 08:13
PROVIDERS: Visit Provider Internal Medicine
DX: I63.9 Cerebral infarction, unspecified (principal)
CPT/HCPCS: 93306

== ENCOUNTER 2022-02-28 07:03 | Outpatient (REF) | payer MEDICARE, SELFPAY ==
[2022-02-28 07:15] LABS: MANUAL DIFF FLAG NO
[2022-02-28 07:52] LABS: Basophils Percent Auto 0.3 % (0-2); Eosinophils Absolute Auto 0.1 X10*3/uL (0.0-0.4); Eosinophils Percent Auto 1.6 % (0-4); Hematocrit 35.7 % (42.0-52.0); Imm Gran Abs Auto 0.04 X10*3/uL (0.00-0.03); Imm Gran Pct Auto 0.4 % (0.0-0.4); Lymphocytes Absolute Auto 1.8 X10*3/uL (1.2-4.9); Lymphocytes Percent Auto 20.5 % (20-40); Mean Corpuscular HGB Conc 33.6 g/dl (31.0-36.0); Mean Corpuscular Volume 95.2 fL (80.0-98.0); Mean Platelet Volume 9.1 fL (9.4-12.4); Monocytes Absolute Auto 0.9 X10*3/uL (0.1-1.2); Monocytes Percent Auto 10.3 % (2-11); Neutrophils Percent Auto 66.9 % (45-73); Platelet Count 201 X10*3/uL (160-400); Red Blood Count 3.75 X10*6/uL (4.60-5.80); Red Cell Distribution Width 12.6 % (11.0-16.0); White Blood Count 8.9 X10*3/uL (4.8-10.8)
[2022-02-28 08:26] LABS: Alanine Aminotransferase 16 U/L (0-40); Albumin Level 3.6 g/dL (3.5-5.0); Alkaline Phosphatase 92 U/L (39-117); Anion Gap 10 (12-20); Aspartate Amino Transferase 21 U/L (5-37); Bilirubin Total 0.8 mg/dL (0.0-1.0); Blood Urea Nitrogen 13 mg/dL (9-16); Calcium 8.9 mg/dL (8.4-10.2); Carbon Dioxide 27 mmol/L (22-29); Chloride 94 mmol/L (96-108); Estimated Glomerular Filt Rate > 60; Glucose Random 85 mg/dL (60-115); Potassium 4.7 mmol/L (3.3-5.1); Sodium 126 mmol/L (135-145); Total Protein 6.5 g/dL (6.5-8.0)
[2022-02-28 08:50] LABS: Free T4 (Free Thyroxine) 0.98 ng/dL (0.71-1.85); Thyroid Stimulating Hormone 1.57 uIU/mL (0.32-4.0)
== END 2022-02-28 07:04 | disposition home or self-care (01) ==
LOC: HO.LAB 07:03
PROVIDERS: PCP Internal Medicine; Visit Provider Internal Medicine
DX: C61 Malignant neoplasm of prostate (principal); K59.00 Constipation, unspecified; E87.1 Hypo-osmolality and hyponatremia; F32.A Depression, unspecified
CPT/HCPCS: 36415; 80053; 84439; 84443; 85025

== ENCOUNTER 2022-03-12 14:00 | Outpatient (RCR) | payer MEDICARE, SELFPAY ==
--- NOTE | 2022-02-12 12:16 | MHC.PT.EP ---
[facility] [place] [facility] [place] Office [place] Office [address] Kathryn Rizo [address] [phone] F: [phone] F: [phone] F: [phone] F: [phone] Physical Therapy Plan of Care Date of Evaluation: Date of Surgery: n/a Diagnosis: unsteadiness on feet Assessment: Patient is a 87 year old male presenting to PT with complaints of unsteadiness on his feet. Pt reports unsteadiness began in 2019 due to having covid. He presents today with impairments in LE strength, gait mechanics, balance, and endurance. Pt's current occupation is retired, with baseline physical activities including ADLs, yard work, ambulation, stair negotiation. Pt expresses senior care goal of returning to OF, and is motivated to work towards this in PT. Clinical presentation today is most consistent with signs and sx associated with deconditioning in LE and unsteadiness with gait and pt will benefit from skilled PT to address the following problems and impairments noted upon evaluation: LE strength, gait mechanics, balance, and endurance. These problems limit the patient with the following functional activities: ADLs, yard work, ambulation, stair negotiation. The prescribed treatment plan of care is medically necessary. 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 Pt was educated on HEP, role of PT, prognosis, POC. Frequency and Duration: The patient will be seen 2 x week x 5 weeks Short Term Goals: Pt will demonstrate improved LE strength by 1/3 MMT for improved ability to transfer in 3 weeks. Pt will demonstrate ability to perform STS on first attempt and without UE support in 3 weeks. Pt will demonstrate ability to profiling machine set up operator tool tandem stance x 30 sec with min to mod sway in 3 weeks. Fci Goals: Pt will demonstrate improved TUG score by 4 sec in 5 weeks for decreased risk of falls. Pt will demonstrate improved 30 second chair stand test by 3 STS in 5 weeks for improved endurance. Pt will demonstrate improved LEFI score by 9 points in 5 weeks for improved functional mobility. Pt will demonstrate improved gait mechanics with less shuffling in 5 weeks for decreased risk of falls. Treatment Plan: Modalities to reduce pain, spasms and effusion. Manual therapy to restore motion and function. Therapeutic exercise to improve strength and flexibility. Neuromuscular re-education for posture and balance. Therapeutic activities to return to functional activities of daily living. Electronically signed by: Marisela Ellison, PT, DPT, ATC Please sign and return to therapist. Thank you for your referral.
--- NOTE | 2022-04-19 08:52 | MHC.PT.DC ---
[facility] [place] Office [place] Office [place] Office [address] [phone] F: [phone] F: [phone] F: [phone] F: [phone] Physical Therapy Discharge Report Diagnosis: unsteadiness on feet Date of Surgery: n/a Date of Evaluation: 02/12/22 Date of Discharge: 04/19/22 Treatments to Date: 8 Cancellations to Date: 4 No Shows to Date: 0 Discharge Status: Discharge Summary: Pt requested 30 day hold. Has not called to be scheduled in >30 days. Pt to be d/c at this time. Should follow up with MD as needed. Electronically signed by: Marisela Ellison, PT, DPT, ATC Please sign and return to therapist. Thank you for your referral.
== END 2022-04-19 08:53 | disposition home or self-care (01) ==
LOC: HO.PTCHIC 14:00
PROVIDERS: PCP Internal Medicine; Visit Provider Internal Medicine
DX: R26.81 Unsteadiness on feet (principal)
CPT/HCPCS: 97110; 97162; 97530

== ENCOUNTER 2022-03-13 07:26 | Outpatient (REF) | payer MEDICARE, SELFPAY ==
--- NOTE | ~2022-03-13 | FL_ITS ---
EXAMINATION: XR FLUOROSCOPY UPPER GI WITH AIR CLINICAL INFORMATION: Dysphagia. Trouble swallowing solids and liquids. COMPARISON: None. TECHNIQUE: Barium swallow was performed using thin and thick barium and effervescent granules. A barium tablet was also administered. FINDINGS: The swallowing mechanism is normal. No aspiration or penetration is seen. There is abnormal esophageal motility. There is stasis of the barium tablet in the distal thoracic esophagus at the GE junction. There is mild gastroesophageal reflux. No hernia is seen. The stomach and duodenum are normal appearing. FLUOROSCOPY TIME: 1.1 minutes. DOSE AREA PRODUCT: 2.4 Gy-cm2. IMAGES: 47 saved fluoroscopic images. FL/FL barium swallow IMPRESSION: Abnormal esophageal motility. Mild gastroesophageal reflux.
== END 2022-03-13 07:27 | disposition home or self-care (01) ==
LOC: HO.XRAY 07:26
PROVIDERS: Visit Provider Internal Medicine
DX: R13.10 Dysphagia, unspecified (principal)
CPT/HCPCS: 74220; 74246

== ENCOUNTER 2022-04-17 07:18 | Outpatient (REF) | payer MEDICARE, SELFPAY ==
[2022-04-17 09:37] LABS: Anion Gap 14 (12-20); Blood Urea Nitrogen 17 mg/dL (9-16); Carbon Dioxide 26 mmol/L (22-29); Chloride 102 mmol/L (96-108); Estimated Glomerular Filt Rate > 60; Glucose Random 90 mg/dL (60-115); Potassium 4.4 mmol/L (3.3-5.1); Sodium 138 mmol/L (135-145)
== END 2022-04-17 07:19 | disposition home or self-care (01) ==
LOC: HO.LAB 07:18
PROVIDERS: PCP Internal Medicine; Visit Provider Internal Medicine
DX: E87.1 Hypo-osmolality and hyponatremia (principal)
CPT/HCPCS: 36415; 80048

== ENCOUNTER 2022-04-25 16:35 | Outpatient (REF) | payer MEDICARE, SELFPAY ==
--- NOTE | ~2022-04-25 | US_ITS ---
EXAMINATION: US VENOUS ULTRASOUND WITH DOPPLER LOWER EXTREMITY, BILATERAL CLINICAL INFORMATION: Localized swelling, mass and lump, lower limb, bilateral COMPARISON: None TECHNIQUE: Ultrasound of the deep veins is performed from the hip to the calf with compression sonography and color and pulse Doppler assessment. Spectral analysis with color-flow imaging is performed. FINDINGS: RIGHT: There is normal venous compression and respiratory variation and augmented flow. The visualized common femoral vein, superficial femoral vein, profunda femoral vein, popliteal vein, and the trifurcation region shows no evidence of deep venous thrombosis. There is no significant popliteal fossa cyst. LEFT: There is normal venous compression and respiratory variation and augmented flow. The visualized common femoral vein, superficial femoral vein, profunda femoral vein, popliteal vein, and the trifurcation region shows no evidence of deep venous thrombosis. There is no significant popliteal fossa cyst. If the patient's symptoms persist, followup ultrasound in 5 days 7 days might be of value to exclude proximal propagation from a non-visualized calf vein. US/US venous duplex LE BI IMPRESSION: No DVT demonstrated in the bilateral lower extremity.
== END 2022-04-25 16:36 | disposition home or self-care (01) ==
LOC: HO.US 16:35
PROVIDERS: PCP Internal Medicine; Visit Provider Internal Medicine
DX: R22.43 Localized swelling, mass and lump, lower limb, bilateral (principal)
CPT/HCPCS: 93970

== ENCOUNTER 2022-05-29 10:02 | Day surgery (SDC) | payer MEDICARE, SELFPAY ==
[2022-05-29 10:29] VITALS: BP 141/85; PULSE 81; RESP 16; TEMP 37.1; O2SAT 97
[2022-05-29 10:32] VITALS: BMI 19.3
--- NOTE | 2022-05-29 12:14 | HO.ANESPROP2 ---
HPI - Anesthesia Eval Consult details Narrative: EGD, dilatation PMFSH Active Problems Active Problems: All Active Problems (Updated 05/21/22 @ 08:23 by Jany Figueroa MD) Localized swelling of both lower legs (Acute) Diarrhea (Acute) Diarrhea (Acute) Cellulitis (Acute) Dysphagia (Acute) Frequency of micturition (Acute) Hyponatremia (Acute) Nausea (Acute) Dehydration (Acute) Recurrent major depression (Acute) Constipation (Acute) CVA (cerebral vascular accident) (Acute) Hematuria (Acute) Headache (Acute) Gait instability (Acute) Eczema (Acute) Medicare annual wellness visit, initial (Acute) COVID-19 virus infection (Acute) Anemia (Chronic) Shortness of breath on exertion (Acute) Osteoarthritis, shoulder (Acute) Prostate cancer (Acute) Hypercholesterolemia (Acute) Past Medical History Medical History Hypercholesterolemia Low sodium levels Osteoarthritis, shoulder Prostate cancer Venous insufficiency Family History Family History Father Diabetes Family history of problems with anesthesia: No Surgical History Surgical History Erectile dysfunction following urethral surgery History of radical prostatectomy History of Problems with Anesthesia: No Social History Social History Housing: House Alcohol intake: current Alcohol intake frequency: holidays/special occasions only Patient Tobacco Use Status: Never used Tobacco e-Cigarette/Vaping Use: Never Used Second Hand Smoke Exposure: No Use of substances other than those prescribed or required for medical reasons: No Are you DNR?: No Advance Directives: Yes Advance Directives on File: Yes Advance Directives Date on File: 08/24/21 service: Yes Current occupational status: retired 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, [employer] Cognitive needs: Yes (cane) Hearing needs: No Vision needs: Yes Meds Allergies Allergy/AdvReac Type Severity Reaction Status Date / Time No Known Allergies Allergy Mild N/A Verified 05/29/22 10:18 Home Medications Medication Instructions Recorded Confirmed Last Taken Type cholecalciferol (vitamin D3) 25 25 mcg PO DAILY 01/17/21 05/21/22 Unknown History mcg (1,000 unit) capsule melatonin 10 mg capsule 10 mg PO BEDTIME PRN Sleep 03/01/22 05/21/22 Unknown History mecobalamin (vitamin B12) 1,000 1,000 mcg sublingual DAILY 04/25/22 05/21/22 Unknown History mcg disintegrating tablet,sublingual meloxicam 15 mg tablet 15 mg PO DAILY 04/25/22 05/21/22 Unknown History Exam Exam Date and Time: May 29, 2022 1214 Height,Weight and Vital Signs: Height 5 ft 10 in Weight 61.235 kg Last Vital Signs Temp 98.7 F 05/29/22 10:29 Pulse 81 05/29/22 10:29 Resp 16 05/29/22 10:29 BP 141/85 H 05/29/22 10:29 Pulse Ox 97 05/29/22 10:29 O2 Del Method 05/29/22 10:29 Airway Mallampati Class: II TM Dist: >3cm Neck ROM: Limited Loose/Missing/Broken Teeth: No Heart: ok Lungs: ok Assessment and Plan Final Anesthetic Review Family History of Problems with Anesthesia: No History of Problems with Anesthesia: No NPO: Yes ASA Class: IV Final Preanesthetic Review: No Changes in Pt Med Stat, Meds/Allgs Chart Reviewed, Consent Obtained/Reviewed and Anes Risks/Benef Reviewed Patient Risk: High Procedure Risk: High Anesthetic Plan Anesthetic Plan: MAC: and Agree w/ Assess. and Plan Disposition: Standard PACU
[2022-05-29] MEDS: Lactated Ringers 1,000 ML 100 ML IVCONT (12:22)
--- NOTE | 2022-05-29 12:49 | P.BOP_ITS ---
Brief Operative Note Date of Service: 05/29/22 Pre-op diagnosis: Anorexia, early satiety, weight loss Post-op diagnosis: other (Hiatal hernia) Procedure: EGD with biopsies Surgeon: Warner Melgar Anesthesia: MAC Was an Home Improvement Contractor used for this Procedure?: No Estimated blood loss (mL): 2.0 Pathology: other (A. Descending duodenum B. Gastric antrum) Condition: stable Disposition: PACU
[2022-05-29 12:50] VITALS: BP 116/70; PULSE 63; RESP 16; TEMP 36.3; O2SAT 97
[2022-05-29 13:05] VITALS: BP 133/73; PULSE 67; RESP 16; TEMP 36.3; O2SAT 97
--- NOTE | 2022-05-29 20:26 | OP_ITS ---
SURGEON: Warner Melgar MD INDICATIONS: The patient presents for evaluation of anorexia, weight loss, and early satiety. Full consent has been obtained from him for this, including risks of bleeding and perforation. PREOPERATIVE DIAGNOSIS: POSTOPERATIVE DIAGNOSIS: PROCEDURE PERFORMED: Esophagogastroduodenoscopy with biopsies. ESTIMATED BLOOD LOSS: COMPLICATIONS: ANESTHESIA: Monitored anesthesia care. ASSISTANTS: SPECIMENS: PREOPERATIVE DIAGNOSES: Anorexia, early satiety, and weight loss. POSTOPERATIVE DIAGNOSES: Anorexia, early satiety, and weight loss, hiatal hernia, otherwise normal upper endoscopy, biopsies taken to rule out celiac disease, and H pylori. DESCRIPTION OF PROCEDURE: The patient was placed in the left lateral decubitus position. The Olympus video gastroscope was passed in the posterior oropharynx and upper esophagus under direct vision. The scope was passed slowly into the distal esophagus. The gastroesophageal junction appeared normal at 38 cm. There was no sign of any esophagitis nor Matta esophagus. The esophageal mucosa appeared normal. There was no sign of any stricture nor ring. The scope easily entered into the stomach. There was a small hiatal hernia. The scope was advanced to the pylorus, and the duodenum was cannulated to the descending portion. The duodenum including the bulb appeared normal without mass or ulceration. Biopsies were obtained from the 2nd and 3rd portions of duodenum. The scope was withdrawn back to the stomach. The gastric antrum and body appeared normal with good peristalsis. Biopsies were obtained from the gastric antrum. The scope was retroflexed visualizing the proximal stomach carefully, which appeared normal, without any sign of mass or ulceration. The scope was straightened and withdrawn back to the esophagus. The esophageal mucosa appeared normal. The scope was withdrawn from the patient. He tolerated the procedure well and was returned to recovery area in stable condition. IMPRESSION: Small hiatal hernia, otherwise normal upper endoscopy. Biopsies taken to rule out celiac disease and H pylori. PLAN: The results of the biopsies will be checked. He was advised not to use any aspirin or NSAIDs for 1 week. At this point, I have encouraged him to try to eat as best as possible and to try adding some supplements such as Ensure. He did have a CT scan within the past year of the abdomen, which was nonrevealing. A lot of these symptoms seemed to have started after his COVID infection in the past. If he continues to have significant problems with weight loss, and other symptoms, then we may need to repeat a CT scan of the abdomen. This has all been discussed with his daughter in detail. He was advised to see me within several months for a followup visit as well. MD RUKHSANA Morin/NALLELY / [id number] MTDD
== END 2022-05-29 14:00 | disposition home or self-care (01) ==
PROVIDERS: PCP Internal Medicine; Visit Provider Internal Medicine
PROC: (CPT 43239; principal; 2022-05-29 11:40)
DX: R63.0 Anorexia (principal); R63.4 Abnormal weight loss; R68.81 Early satiety; K44.9 Diaphragmatic hernia without obstruction or gangrene; Z85.46 Personal history of malignant neoplasm of prostate; Z79.82 Long term (current) use of aspirin
CPT/HCPCS: 43239; 88305; 88342; J3010

== ENCOUNTER 2022-08-09 13:06 | Emergency (ER) | payer MEDICARE, SELFPAY ==
--- NOTE | ~2022-08-09 | US_ITS ---
EXAMINATION: US VENOUS ULTRASOUND WITH DOPPLER LOWER EXTREMITY, BILATERAL CLINICAL INFORMATION: Bilateral lower extremity pain COMPARISON: 04/25/2022 TECHNIQUE: Ultrasound of the deep veins is performed from the hip to the calf with compression sonography and color and pulse Doppler assessment. Spectral analysis with color-flow imaging is performed. FINDINGS: RIGHT: There is normal venous compression and respiratory variation and augmented flow. The visualized common femoral vein, superficial femoral vein, profunda femoral vein, popliteal vein, and the trifurcation region shows no evidence of deep venous thrombosis. There is no significant popliteal fossa cyst. Calf veins not well seen due to edema. LEFT: There is normal venous compression and respiratory variation and augmented flow. The visualized common femoral vein, superficial femoral vein, profunda femoral vein, popliteal vein, and the trifurcation region shows no evidence of deep venous thrombosis. There is no significant popliteal fossa cyst. Calf veins not well seen due to edema. If the patient's symptoms persist, followup ultrasound in 5 days 7 days might be of value to exclude proximal propagation from a non-visualized calf vein. US/US venous duplex LE BI IMPRESSION: No DVT demonstrated in the right and left lower extremity. Limited evaluation of the calf veins.
--- NOTE | 2022-08-09 13:24 | ED_ITS ---
HPI - General Adult General Chief complaint: Extremity Problem Stated complaint: ?DVT Both Legs Sent By Dr Sen Seen by Provider: 08/09/22 16:17 Source: patient Mode of arrival: ambulatory Limitations: no limitations History of Present Illness HPI narrative: Patient is a 87 year old assigned male at with a history of a CVA, venous stasis dermatitis, and prostate cancer presenting to the emergency department today with bilateral lower leg pain. Patient states that he has bilateral lower leg pain and was seen at a [facility] who recommended he come to have DVTs ruled out. Patient denies any dizziness, lightheadedness, abdominal pain, nausea, vomiting, fever, chills, blurry vision, double vision, loss of vision, chest pain, difficulty breathing, shortness of breath, back pain, night sweats, pain with urination, increased urinary frequency, increased urinary urgency, blood in his urine or stool, syncope or a near syncopal episode, recent trauma or falls, bowel incontinence, bladder incontinence, bowel retention, bladder retention, or any other complaints at this time. Onset (ago): day(s) Location: left, right and lower extremity Radiation: non-radiation Severity: mild Severity scale (1-10): 3 Quality: dull Pain Consistency: intermittent Relieving factors: none Exacerbating factors: none Associated symptoms: denies other symptoms Treatments prior to arrival: none Related Data Home Medications Medication Instructions Recorded Confirmed cholecalciferol (vitamin D3) 25 25 mcg PO DAILY 01/17/21 06/21/22 mcg (1,000 unit) capsule melatonin 10 mg capsule 10 mg PO BEDTIME PRN Sleep 03/01/22 06/21/22 mecobalamin (vitamin B12) 1,000 1,000 mcg sublingual DAILY 04/25/22 06/21/22 mcg disintegrating tablet,sublingual meloxicam 15 mg tablet 15 mg PO DAILY 04/25/22 06/21/22 Previous Rx's Medication Instructions Recorded ascorbic acid (vitamin C) 1,000 mg 1,000 mg PO Q12H #30 tabs 11/15/20 tablet,extended release aspirin 81 mg tablet,delayed 81 mg PO DAILY #14 tabs 11/15/20 release (Adult Low Dose Aspirin) oxybutynin chloride 15 mg 30 mg PO DAILY #7 tabs 11/15/20 tablet,extended release 24 hr atorvastatin 80 mg tablet 80 mg PO DAILY 30 days #90 tabs 12/31/21 blood pressure monitor (Blood #1 ea 01/16/22 Pressure Kit) sertraline 50 mg tablet 50 mg PO DAILY #30 tabs 06/21/22 Allergies Allergy/AdvReac Type Severity Reaction Status Date / Time No Known Allergies Allergy Mild N/A Verified 06/21/22 11:41 Review of Systems Constitutional: Constitutional: Reports no additional constitutional complaints, Denies chills, Denies fever(s) and Denies night sweats Eyes: Eyes: Reports no additional eye complaints, Denies blurry vision, Denies change in vision, Denies diplopia, Denies eye discharge, Denies loss of vision and Denies eye pain ENT: Denies dizziness Cardiovascular: Cardiovascular: Reports no additional cardiovascular complaints, Denies chest pain, Denies lightheadedness, Denies Loss of Consc iousness and Denies dyspnea Respiratory: Respiratory: Reports no additional respiratory complaints and Denies dyspnea Gastrointestinal: Gastrointestinal: Reports no additional gastrointestinal complaints, Denies abdominal pain, Denies melena, Denies hematochezia, Denies change in bowel habits and Denies change in stool character Genitourinary: Genitourinary: Reports no additional male genitourinary complaints, Denies hematuria, Denies oliguria, Denies difficulty urinating, Denies dysuria, Denies urinary frequency, Denies urinary hesitancy, Denies urinary incontinence and Denies urinary urgency Musculoskeletal: Musculoskeletal: Reports no additional musculoskeletal complaints, Denies numbness and Denies tingling Comments: bilateral lower leg pain Integumentary/Breasts: Comments: venous stasis dermatitis Neurologic: Denies dizziness, Denies loss of vision, Denies numbness and Denies tingling Psychiatric: Psychiatric: Reports no additional psychiatric complaints Endocrine: Endocrine: Reports no additional endocrine complaints Hematologic/Lymphatic: Hematologic/Lymphatic: Reports no additional hematologic/lymphatic complaints Allergic/Immunologic: Allergic/Immunologic: Reports no additional aller gic/immunologic complaints PMFSH Past Medical History Attestation statement: The following information was validated with the patient. Source: old records reviewed and nursing notes reviewed Medical History COVID-19 virus infection Hypercholesterolemia Low sodium levels Osteoarthritis, shoulder Prostate cancer Venous insufficiency Surgical History Erectile dysfunction following urethral surgery History of radical prostatectomy Family History Family History Father Diabetes Social History Social History Housing: House Alcohol intake: current Alcohol intake frequency: holidays/special occasions only Patient Tobacco Use Status: Never used Tobacco e-Cigarette/Vaping Use: Never Used Second Hand Smoke Exposure: No Advance Directives: Yes Advance Directives on File: Yes Advance Directives Date on File: 08/24/21 service: Yes Current occupational status: retired 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, 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 [employer] Cognitive needs: Yes (cane) Hearing needs: No Vision needs: Yes Physical Exam ED Vital Signs: Vital Signs - 24 hr 08/09/22 13:26 Temperature 97.6 F Pulse Rate 78 Respiratory Rate 18 Blood Pressure 144/83 H Pulse Oximetry 96 Oxygen Delivery Method Room Air BMI result Body Mass Index 20.0 Const General: cooperative, no acute distress, alert and awake Nutritional Appearance: well nourished Orientation/consciousness: patient oriented x3 Limitations: no limitations HENMT Head: Yes normal to inspection and Yes atraumatic Ears: hearing grossly normal bilaterally and external ears normal General nose exam: Normal external nose present, no nasal discharge noted and no epistaxis Face and sinus: Yes normal facial exam, No abrasion and No laceration Mouth: Normal oral and palatal mucosa present, no drooling and no muffled voice Eyes General: appearance normal, both eyes and all related structures Periorbital: periorbital findings normal Eyelids: Yes eyelids normal Conjunctivae: conjunctivae normal Pupils: Equal, round and reactive pupils present EOM: EOMs intact bilaterally Neck Neck: Yes normal visual inspection, Yes full ROM and Yes no lymphadenopathy Chest Chest palpation & inspection: normal inspection of the chest Resp Effort & Inspection: normal respiratory effort and able to speak in complete sentences Auscultation: clear to auscultation bilaterally Cardio Rate: regular rate Rhythm: regular rhythm GI Inspection: Yes normal to inspection Skin Other: venous stasis dermatitis to bilateral lower legs Neuro General: patient oriented x3 and moves all extremities Cranial nerves: Yes Equal, round and reactive pupils present Cognition (Neuro): normal cognition Motor exam (neuro): 5/5 motor strength present throughout Sensory Exam: Normal double simultaneous stimulation for sensation Coordination: [id number] test normal Extrem General: Yes normal to inspection, Yes full ROM and Yes capillary refill normal Psych Appearance: grossly normal Mental Status: mental status grossly normal Affect: normal affect Attitude: cooperative Thought process: Normal thought process present Thought content: Normal thought content present Insight: Good insight present (Psych) Course Course Course Narrative: RME performed by Enedelia Hopper PA-C. Patient is an 87 year old male presenting to the emergency department for bilateral lower leg pain. Patient denies any anti-coagulation use. Patient states that he was seen at the urgent care who was concerned of bilateral DVTs so they sent him to the ED. Bilateral lower leg US ordered. Patient placed back in the waiting room pending results and bed availability. Medical Decision Making MDM Narrative Medical decision making narrative: Patient is an 87 year old assigned male at with a history of CVA, venous stasis dermatitis, and prostate cancer presenting to the emergency department today with bilateral lower leg pain. Patient's physical exam showed bilateral lower leg venous stasis dermatitis but was otherwise unremarkable. Patient's blood work showed a slightly decreased sodium of 131 however, the patient states his sodium has been high so Dr. Harris has wanted his sodium to be on the lower side. Patient's lower extremity US showed no acute process. I explained my physical exam findings as well as all test results to the patient. I answered all questions asked by the patient. I stressed the importance of the patient taking his medication as prescribed. I stressed the importance of the patient following up with his primary care provider. I stressed the importance of the patient returning to the emergency department immediately if his symptoms were to worsen or if he were to develop any dizziness, shortness of breath, difficulty breathing, chest pain, blurry vision, loss of vision, nausea, vomiting, abdominal pain, fever, chills, back pain, or any other complaints. Patient verbalized agreement and understanding with this treatment plan and discharge. Medical Records Medical records reviewed: Yes I reviewed the patient's medical records. Lab Data Lab results reviewed: Yes I reviewed the patient's lab results. Result diagrams: 08/09/22 13:56 08/09/22 13:56 Labs: Lab Results 08/09/22 08/09/22 08/09/22 Range/Units 13:56 13:56 13:56 WBC 15.2 H (4.8-10.8) X10*3/uL RBC 3.65 L (4.60-5.80) X10*6/uL Hgb 11.8 L (14.0-18.0) g/dl Hct 35.4 L (42.0-52.0) % MCV 97.0 (80.0-98.0) fL MCH 32.3 (27.0-33.0) pg MCHC 33.3 (31.0-36.0) g/dl RDW 13.5 (11.0-16.0) % Plt Count 209 (160-400) X10*3/uL MPV 9.5 (9.4-12.4) fL Immature Gran % (Auto) 0.6 H (0.0-0.4) % Neut % (Auto) 87.6 H (45-73) % Lymph % (Auto) 5.9 L (20-40) % [place] % (Auto) 5.7 (2-11) % Eos % (Auto) 0.1 (0-4) % Baso % (Auto) 0.1 (0-2) % Lymph # (Auto) 0.9 L (1.2-4.9) X10*3/uL [place] # (Auto) 0.9 (0.1-1.2) X10*3/uL Eos # (Auto) 0.0 (0.0-0.4) X10*3/uL Baso # (Auto) 0.0 (0.0-0.2) X10*3/uL Abs Immat Gran (auto) 0.09 H (0.00-0.03) X10*3/uL Absolute Neuts (auto) 13.3 H (2.0-8.3) x10*3/uL Absolute Nucleated RBC 0.000 (0.0-0.012) X10*3/uL Nucleated RBC % (auto) 0.0 (0.0-0.2) /100WBC PT 10.5 (10.0-13.1) SEC INR 0.9 (0.9-1.1) APTT 25.0 L (26.0-36.4) SEC Sodium 131 L (135-145) mmol/L Potassium 3.7 (3.3-5.1) mmol/L Chloride 101 (96-108) mmol/L Carbon Dioxide 27 (22-29) mmol/L Anion Gap 7 L (12-20) BUN 27 H (9-16) mg/dL Creatinine 0.78 (0.5-1.4) mg/dL Estim Creat Clear Calc 61.0 Estimated GFR > 60 Random Glucose 134 H (60-115) mg/dL Calcium 8.8 (8.4-10.2) mg/dL Total Bilirubin 0.3 (0.0-1.0) mg/dL AST 16 (5-37) U/L ALT 18 (0-40) U/L Alkaline Phosphatase 87 (39-117) U/L Total Protein 6.3 L (6.5-8.0) g/dL Albumin 3.5 (3.5-5.0) g/dL Imaging Data Venous US: Attestation: I personally reviewed and interpreted this imaging study as follows: My impression: No acute process. Radiologist's impression: EXAMINATION:? US VENOUS ULTRASOUND WITH DOPPLER LOWER EXTREMITY, BILATERAL CLINICAL INFORMATION:? Bilateral lower extremity pain COMPARISON:? 04/25/2022 TECHNIQUE: Ultrasound of the deep veins is performed from the hip to the calf with compression sonography and color and pulse Doppler assessment. Spectral analysis with color-flow imaging is performed. FINDINGS: RIGHT: There is normal venous compression and respiratory variation and augmented flow. The visualized common femoral vein, superficial femoral vein, profunda femoral vein, popliteal vein, and the trifurcation region shows no evidence of deep venous thrombosis. ? There is no significant popliteal fossa cyst. Calf veins not well seen due to edema. LEFT: There is normal venous compression and respiratory variation and augmented flow. The visualized common femoral vein, superficial femoral vein, profunda femoral vein, popliteal vein, and the trifurcation region shows no evidence of deep venous thrombosis. ? There is no significant popliteal fossa cyst. Calf veins not well seen due to edema. If the patient's symptoms persist, followup ultrasound in 5 days 7 days might be of value to exclude proximal propagation from a non-visualized calf vein. US/US venous duplex LE BI IMPRESSION: No DVT demonstrated in the right and left lower extremity. Limited evaluation of the calf veins. Dictated By: Josué Chavez MD Signed By: Electronically signed by Josué Chavez MD 08/09/22 3720 Discharge Plan Discharge Clinical Impression: Chronic venous stasis dermatitis Patient Disposition: Home, Self-Care Instructions: Venous Insufficiency (DC) Additional Instructions: Follow up with your primary care provider. Return to the emergency department immediately if your symptoms worsen or if you develop any dizziness, shortness of breath, difficulty breathing, chest pain, blurry vision, loss of vision, nausea, vomiting, abdominal pain, fever, chills, back pain, or any other complaints. Prescriptions: No Action oxybutynin chloride 15 mg tablet extended release 24 hr 30 mg PO DAILY Qty: 7 0RF ascorbic acid (vitamin C) 1,000 mg tablet extended release 1,000 mg PO Q12H Qty: 30 0RF aspirin [Adult Low Dose Aspirin] 81 mg tablet,delayed release (DR/EC) 81 mg PO DAILY Qty: 14 0RF atorvastatin 80 mg tablet 80 mg PO DAILY 30 Days Qty: 90 3RF cholecalciferol (vitamin D3) 25 mcg (1,000 unit) capsule 25 mcg PO DAILY (DME) blood pressure monitor [Blood Pressure Kit] Kit See Rx Instructions .ROUTE .MEDSUPPLY Qty: 1 0RF Rx Instructions: As directed melatonin 10 mg capsule 10 mg PO BEDTIME PRN (Reason: Sleep) sertraline 50 mg tablet 50 mg PO DAILY Qty: 30 2RF meloxicam 15 mg tablet 15 mg PO DAILY mecobalamin (vitamin B12) 1,000 mcg tablet,disintegrating 1,000 mcg sublingual DAILY Rx Instructions: place tablet under tongue and allow to dissolve for at least30 secs before swallowing Referrals: Steven,Bobbi Fitzgerald MD [Primary Care Provider] - Print Language: Croatian
[2022-08-09 13:26] VITALS: BP 144/83; PULSE 78; RESP 18; TEMP 36.4; O2SAT 96
[2022-08-09 14:04] LABS: MANUAL DIFF FLAG NO
[2022-08-09 14:05] LABS: Basophils Percent Auto 0.1 % (0-2); Eosinophils Percent Auto 0.1 % (0-4); Hematocrit 35.4 % (42.0-52.0); Hemoglobin 11.8 g/dl (14.0-18.0); Imm Gran Abs Auto 0.09 X10*3/uL (0.00-0.03); Imm Gran Pct Auto 0.6 % (0.0-0.4); Lymphocytes Absolute Auto 0.9 X10*3/uL (1.2-4.9); Lymphocytes Percent Auto 5.9 % (20-40); Mean Corpuscular HGB Conc 33.3 g/dl (31.0-36.0); Mean Corpuscular Hemoglobin 32.3 pg (27.0-33.0); Mean Platelet Volume 9.5 fL (9.4-12.4); Monocytes Absolute Auto 0.9 X10*3/uL (0.1-1.2); Monocytes Percent Auto 5.7 % (2-11); Neutrophils Absolute Auto 13.3 x10*3/uL (2.0-8.3); Neutrophils Percent Auto 87.6 % (45-73); Platelet Count 209 X10*3/uL (160-400); Red Blood Count 3.65 X10*6/uL (4.60-5.80); Red Cell Distribution Width 13.5 % (11.0-16.0); White Blood Count 15.2 X10*3/uL (4.8-10.8)
[2022-08-09 14:11] LABS: INTERNATIONAL NORM RATIO 0.9 (0.9-1.1); Prothrombin Time 10.5 SEC (10.0-13.1)
[2022-08-09 14:43] LABS: Alanine Aminotransferase 18 U/L (0-40); Albumin Level 3.5 g/dL (3.5-5.0); Alkaline Phosphatase 87 U/L (39-117); Anion Gap 7 (12-20); Aspartate Amino Transferase 16 U/L (5-37); Bilirubin Total 0.3 mg/dL (0.0-1.0); Blood Urea Nitrogen 27 mg/dL (9-16); Calcium 8.8 mg/dL (8.4-10.2); Carbon Dioxide 27 mmol/L (22-29); Chloride 101 mmol/L (96-108); Estimated Glomerular Filt Rate > 60; Glucose Random 134 mg/dL (60-115); Potassium 3.7 mmol/L (3.3-5.1); Sodium 131 mmol/L (135-145); Total Protein 6.3 g/dL (6.5-8.0)
== END 2022-08-09 16:25 | disposition home or self-care (01) ==
PROVIDERS: Physician Assistant Medical; Emergency Provider Student in an Organized Health Care Education/Training Program; PCP Internal Medicine
DX: I87.2 Venous insufficiency (chronic) (peripheral) (principal); R60.0 Localized edema; Z79.899 Other long term (current) drug therapy
CPT/HCPCS: 36415; 80053; 85025; 85610; 85730; 93970; 99282; 99283

== ENCOUNTER 2022-10-09 07:28 | Outpatient (REF) | payer MEDICARE, SELFPAY ==
[2022-10-09 07:41] LABS: MANUAL DIFF FLAG NO
[2022-10-09 08:20] LABS: Basophils Percent Auto 0.5 % (0-2); Eosinophils Absolute Auto 0.2 X10*3/uL (0.0-0.4); Eosinophils Percent Auto 2.7 % (0-4); Hematocrit 40.3 % (42.0-52.0); Hemoglobin 13.1 g/dl (14.0-18.0); Imm Gran Abs Auto 0.04 X10*3/uL (0.00-0.03); Imm Gran Pct Auto 0.5 % (0.0-0.4); Immature Retic Fraction 8.5 % (2.3-13.4); Lymphocytes Absolute Auto 2.5 X10*3/uL (1.2-4.9); Lymphocytes Percent Auto 32.3 % (20-40); Mean Corpuscular HGB Conc 32.5 g/dl (31.0-36.0); Mean Corpuscular Hemoglobin 31.7 pg (27.0-33.0); Mean Corpuscular Volume 97.6 fL (80.0-98.0); Mean Platelet Volume 9.3 fL (9.4-12.4); Monocytes Absolute Auto 0.7 X10*3/uL (0.1-1.2); Monocytes Percent Auto 9.4 % (2-11); Neutrophils Absolute Auto 4.2 x10*3/uL (2.0-8.3); Neutrophils Percent Auto 54.6 % (45-73); Platelet Count 244 X10*3/uL (160-400); Red Blood Count 4.13 X10*6/uL (4.60-5.80); Red Cell Distribution Width 13.1 % (11.0-16.0); Reticulocyte Percent 1.2 % (0.5-1.8); White Blood Count 7.7 X10*3/uL (4.8-10.8)
[2022-10-09 09:55] LABS: Alanine Aminotransferase 30 U/L (0-40); Albumin Level 3.7 g/dL (3.5-5.0); Alkaline Phosphatase 91 U/L (39-117); Anion Gap 12 (12-20); Aspartate Amino Transferase 25 U/L (5-37); Bilirubin Total 0.6 mg/dL (0.0-1.0); Blood Urea Nitrogen 14 mg/dL (9-16); Calcium 9.3 mg/dL (8.4-10.2); Carbon Dioxide 28 mmol/L (22-29); Chloride 105 mmol/L (96-108); Cholesterol 161 mg/dL; Estimated Glomerular Filt Rate > 60; Glucose Random 92 mg/dL (60-115); HDL Cholesterol 48 mg/dL; Iron 113 mcg/dL (45-160); LDL Cholesterol Calculated 97 mg/dl; Percent Iron Saturation 43 % (15-50); Potassium 4.4 mmol/L (3.3-5.1); Sodium 141 mmol/L (135-145); Total Iron Binding Capacity 262 mcg/dL (228-428); Total Protein 6.6 g/dL (6.5-8.0); Triglycerides 83 mg/dL; Unsaturated Iron Binding 149 ug/dL
[2022-10-09 10:26] LABS: Ferritin 256 ng/mL (20-250); Folate 9.4 ng/mL (> or = 4.0); Free T4 (Free Thyroxine) 0.93 ng/dL (0.71-1.85); PSA,Total (Free>4and<10) < 0.10 ng/mL (0.00-4.00); Thyroid Stimulating Hormone 1.62 uIU/mL (0.32-4.0); Vitamin B12 > 2000 pg/mL (200-900)
== END 2022-10-09 07:29 | disposition home or self-care (01) ==
LOC: HO.LAB 07:28
PROVIDERS: PCP Internal Medicine; Visit Provider Internal Medicine
DX: C61 Malignant neoplasm of prostate (principal); E78.00 Pure hypercholesterolemia, unspecified; Z12.5 Encounter for screening for malignant neoplasm of prostate
CPT/HCPCS: 36415; 80053; 80061; 82607; 82728; 82746; 83540; 84153; 84439; 84443; 85025; 85045

== ENCOUNTER 2023-01-13 07:22 | Outpatient (REF) | payer MEDICARE, SELFPAY ==
[2023-01-13 07:35] LABS: MANUAL DIFF FLAG NO
[2023-01-13 07:58] LABS: Basophils Percent Auto 0.4 % (0-2); Eosinophils Absolute Auto 0.1 X10*3/uL (0.0-0.4); Eosinophils Percent Auto 0.6 % (0-4); Hematocrit 37.5 % (42.0-52.0); Hemoglobin 12.4 g/dl (14.0-18.0); Lymphocytes Absolute Auto 1.8 X10*3/uL (1.2-4.9); Lymphocytes Percent Auto 17.8 % (20-40); Mean Corpuscular HGB Conc 33.1 g/dl (31.0-36.0); Mean Corpuscular Hemoglobin 33.2 pg (27.0-33.0); Mean Corpuscular Volume 100.3 fL (80.0-98.0); Mean Platelet Volume 9.2 fL (9.4-12.4); Monocytes Absolute Auto 0.9 X10*3/uL (0.1-1.2); Monocytes Percent Auto 9.4 % (2-11); Neutrophils Absolute Auto 7.1 x10*3/uL (2.0-8.3); Neutrophils Percent Auto 70.8 % (45-73); Platelet Count 164 X10*3/uL (160-400); Red Blood Count 3.74 X10*6/uL (4.60-5.80); Red Cell Distribution Width 14.2 % (11.0-16.0)
[2023-01-13 08:26] LABS: Alanine Aminotransferase 21 U/L (0-40); Albumin Level 3.2 g/dL (3.5-5.0); Alkaline Phosphatase 72 U/L (39-117); Anion Gap 10 (12-20); Aspartate Amino Transferase 19 U/L (5-37); Bilirubin Total 0.5 mg/dL (0.0-1.0); Blood Urea Nitrogen 20 mg/dL (9-16); Calcium 8.8 mg/dL (8.4-10.2); Carbon Dioxide 27 mmol/L (22-29); Chloride 103 mmol/L (96-108); Cholesterol 155 mg/dL; Estimated Glomerular Filt Rate > 60; Glucose Random 90 mg/dL (60-115); HDL Cholesterol 61 mg/dL; LDL Cholesterol Calculated 82 mg/dl; Potassium 4.2 mmol/L (3.3-5.1); Sodium 136 mmol/L (135-145); Triglycerides 61 mg/dL
== END 2023-01-13 07:23 | disposition home or self-care (01) ==
LOC: HO.LAB 07:22
PROVIDERS: PCP Internal Medicine; Visit Provider Internal Medicine
DX: E78.00 Pure hypercholesterolemia, unspecified (principal)
CPT/HCPCS: 36415; 80053; 80061; 85025

== ENCOUNTER 2023-02-21 19:47 | Inpatient (IN) | payer MEDICARE, SELFPAY ==
--- NOTE | ~2023-02-21 | XR_ITS ---
EXAMINATION: XR CHEST CLINICAL INFORMATION: Cough. COMPARISON: CT chest 01/11/2022. Chest radiograph 01/17/2021. TECHNIQUE: Frontal view of the chest was obtained. FINDINGS: Within a background of bilateral calcified pleural plaques and interstitial lung disease, there is suggestion of increased bronchial thickening. No pleural effusion or pneumothorax. Normal cardiomediastinal silhouette. Degenerative changes in the shoulders. No acute osseous abnormalities. XR/XR chest 1V IMPRESSION: Bilateral calcified pleural plaques and interstitial lung disease limits evaluation of parenchymal details. However, accounting for these limitations, there is suggestion of increased bronchial wall thickening compared to 01/17/2021 which raises the possibility of a acute n infectious or inflammatory process. Recommend a short-term follow-up chest CT for better characterization of the interstitial lung disease, pleural plaques and to rule out underlying lesions.
--- NOTE | ~2023-02-21 | CT_ITS ---
EXAMINATION: CT CHEST WITHOUT CONTRAST CLINICAL INFORMATION: Fever. Abnormal chest x-ray. COMPARISON: Chest x-ray 02/21/2023. TECHNIQUE: Multidetector volumetric CT imaging of the chest was done. Axial MIP volume rendering provided. Sagittal and coronal reformatted images were obtained. This CT examination was performed using dose optimization techniques as appropriate, variously including the following: *Automated exposure control *Adjustment of mA and/or kV according to patient size (this includes techniques or standardized protocols for targeted exams where dose is matched to indication/reason for exam; i.e. extremities or head) *Use of iterative reconstruction technique DLP: 219 mGy-cm FINDINGS: LAYOUT TECHNICIAN: Well-expanded lungs with multiple calcifications. LUNGS: The lungs are well-expanded but clear of acute pneumonic process. No pulmonary nodule, mass or consolidation seen. There is compressive atelectasis both lung bases. MEDIASTINUM: Thyroid lobes are symmetrical and normal. Central trachea and the bronchi are widely patent. Heart size and the great vessels are normal caliber. No pericardial effusion seen. Small shotty lymph nodes in the mediastinum. CORONARY ARTERY CALCIFICATION: Moderate coronary artery calcifications are present. PLEURA: There are extensive calcified pleural plaques involving diaphragm and the bilateral pleural ruiz. There are small bilateral pleural effusions or thickening at the lung bases. AXILLA: Small shotty bilateral lymph nodes visualized in axilla, slightly greater on the right. The chest wall appears unremarkable. UPPER ABDOMEN: There are multiple hypodense liver lesions. Gallbladder is not visualized. The spleen is unremarkable. Pancreas and bilateral adrenal glands are unremarkable. OSSEOUS STRUCTURES: Mild scoliosis. No aggressive lytic or sclerotic process seen. There is mild ventral spondylosis upper lumbar spine. CT/CT chest wo IV con IMPRESSION: No acute lung parenchymal process seen. Extensive bilateral pleural calcified plaques involving diaphragm as well. There is small pleural effusion thickening suspected bilaterally. Fleischner guidelines were followed.
[2023-02-21 19:54] VITALS: BP 104/59; BP 132/75; PULSE 108; PULSE 90; RESP 16; TEMP 38; O2SAT 93; O2SAT 97
--- NOTE | 2023-02-21 20:01 | ECG_ITS ---
Test Reason : TACHYCARDIA Blood Pressure : / mmHG Vent. Rate : 097 BPM Atrial Rate : 097 BPM P-R Int : 172 ms QRS Dur : 100 ms QT Int : 348 ms P-R-T Axes : 057 033 065 degrees QTc Int : 441 ms Normal sinus rhythm Normal ECG When compared with ECG of 11-JAN-2022 09:19, SD interval has decreased Referred By: Generic ED Physician Electronically Signed By:EFREM BAY MD
[2023-02-21] MEDS: Piperacillin Sodium/Tazobactam 3.375 GM in 0.9 % Sodium Chloride 50 ML IV (20:24)
[2023-02-21] MEDS: 0.9 % Sodium Chloride 500 ML IV (20:28)
[2023-02-21 20:35] LABS: Basophils Percent Auto 0.2 % (0-2); Eosinophils Percent Auto 0.1 % (0-4); Hematocrit 29.5 % (42.0-52.0); Hemoglobin 10.1 g/dl (14.0-18.0); Imm Gran Abs Auto 0.29 X10*3/uL (0.00-0.03); Imm Gran Pct Auto 1.5 % (0.0-0.4); Lymphocytes Absolute Auto 0.4 X10*3/uL (1.2-4.9); Lymphocytes Percent Auto 2.1 % (20-40); MANUAL DIFF FLAG SCAN; Mean Corpuscular HGB Conc 34.2 g/dl (31.0-36.0); Mean Corpuscular Hemoglobin 31.6 pg (27.0-33.0); Mean Corpuscular Volume 92.2 fL (80.0-98.0); Mean Platelet Volume 8.2 fL (9.4-12.4); Monocytes Absolute Auto 0.8 X10*3/uL (0.1-1.2); Monocytes Percent Auto 4.2 % (2-11); Neutrophils Absolute Auto 17.5 x10*3/uL (2.0-8.3); Neutrophils Percent Auto 91.9 % (45-73); Platelet Count 282 X10*3/uL (160-400); Red Cell Distribution Width 13.1 % (11.0-16.0); SCAN SMEAR FLAG 1
[2023-02-21 20:50] LABS: Lactic Acid 0.7 mmol/L (0.5-2.0)
[2023-02-21 20:54] LABS: Alanine Aminotransferase 52 U/L (0-40); Albumin Level 2.6 g/dL (3.5-5.0); Alkaline Phosphatase 93 U/L (39-117); Anion Gap 11 (12-20); Aspartate Amino Transferase 53 U/L (5-37); Bilirubin Total 0.8 mg/dL (0.0-1.0); Blood Urea Nitrogen 11 mg/dL (9-16); Carbon Dioxide 22 mmol/L (22-29); Chloride 96 mmol/L (96-108); Creatinine Clr Calc Pharmacy 66.3; Estimated Glomerular Filt Rate > 60; Glucose Random 129 mg/dL (60-115); Potassium 3.7 mmol/L (3.3-5.1); Sodium 125 mmol/L (135-145); Total Protein 6.5 g/dL (6.5-8.0)
[2023-02-21 20:58] LABS: B Type Natriuretic Peptide 41 pg/mL (<100)
[2023-02-21 21:03] LABS: SLIDE REVIEW VERIFIED
[2023-02-21 21:35] VITALS: BP 109/63; PULSE 86; RESP 22; TEMP 39.5; O2SAT 94
[2023-02-21] MEDS: Ketorolac Tromethamine 30 MG/ML VIAL 15 MG IVPUSH (21:47)
[2023-02-21] MEDS: Acetaminophen 325 MG TABLET 975 MG PO (21:47)
[2023-02-21 22:31] LABS: Appearance Urine Cloudy; Color Urine Yellow; Glucose Urine UA Negative (Negative); Leukocyte Esterase Urine Moderate (2+) (Negative); Nitrite Urine Negative (Negative); UMIC TRIGGER UACC YES; Urine Blood Moderate (2+) (Negative); Urine Ketones Negative (Negative); Urine Protein 100 (2+) mg/dL (Neg-Trace)
[2023-02-21 22:35] LABS: Bacteria Urine 4+ (None Seen); Hyaline Casts Urine 0-2 /LPF (0-2); RBC Urine >20 /HPF (0-2); Squamous Epithelial Cell Urine 0-2 /HPF (0-2); UACC Culture Trigger YES; WBC Urine >50 /HPF (0-5)
--- NOTE | 2023-02-21 22:35 | ED_ITS ---
HPI - Weakness General Chief complaint: Weakness Stated complaint: failure to thrive, possible pre sepsis, per ems Time Seen by Provider: 02/21/23 20:57 Source: patient Mode of arrival: EMS History of Present Illness HPI Narrative: 88-year-old male who arrives via EMS from home for evaluation of increasing weakness, decreased appetite and reports by family members that the urine is dark and has a foul order. Patient reports having difficulty focusing, denies any abdominal pain or shortness of breath. Related Data Home Medications Medication Instructions Recorded Confirmed cholecalciferol (vitamin D3) 25 25 mcg PO DAILY 01/17/21 02/20/23 mcg (1,000 unit) capsule mecobalamin (vitamin B12) 1,000 1,000 mcg sublingual DAILY 04/25/22 02/20/23 mcg disintegrating tablet,sublingual meloxicam 15 mg tablet 15 mg PO DAILY 04/25/22 02/20/23 Previous Rx's Medication Instructions Recorded ascorbic acid (vitamin C) 1,000 mg 1,000 mg PO Q12H #30 tabs 11/15/20 tablet,extended release aspirin 81 mg tablet,delayed 81 mg PO DAILY #14 tabs 11/15/20 release (Adult Low Dose Aspirin) oxybutynin chloride 15 mg 30 mg PO DAILY #7 tabs 11/15/20 tablet,extended release 24 hr blood pressure monitor (Blood #1 ea 01/16/22 Pressure Kit) comp.stocking,knee,long,medium #2 ea 08/13/22 sertraline 50 mg tablet 25 mg PO DAILY 90 days #45 tabs 12/16/22 psyllium husk 0.4 gram capsule 0.8 g PO BEDTIME PRN constipation 01/21/23 30 days #60 caps rosuvastatin 40 mg tablet 40 mg PO DAILY #30 tabs 02/05/23 Allergies Allergy/AdvReac Type Severity Reaction Status Date / Time No Known Allergies Allergy Mild N/A Verified 02/20/23 14:40 Review of Systems Review of Systems: Pertinent positives and negatives as stated in HPI PMF Past Medical History Source: nursing notes reviewed Medical History COVID-19 virus infection Hypercholesterolemia Low sodium levels Osteoarthritis, shoulder Prostate cancer Venous insufficiency Surgical History Erectile dysfunction following urethral surgery History of radical prostatectomy Family History Family History Father Diabetes Social History Social History Household Members: Significant Other Housing: House Alcohol intake: current Alcohol intake frequency: holidays/special occasions only Patient Tobacco Use Status: Never used Tobacco e-Cigarette/Vaping Use: Never Used Second Hand Smoke Exposure: No Advance Directives: Yes Advance Directives on File: Yes Advance Directives Date on File: 08/24/21 service: Yes Current occupational status: retired 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 GENERAL: Well developed, well nourished, in no acute distress. HEAD: Normocephalic/atraumatic EYES: PERRLA, EOMI EARS: Ext canals without abnormality NOSE: Nares patent bilateral OROPHARYNX: no oral lesions noted, posterior pharynx clear NECK: Supple, no adenopathy LUNGS: Bibasilar rales,. SpO2<94> CARDIOVASCULAR: Regular rate and rhythm without noted murmurs, no JVD bilateral 2+ pitting edema ABDOMEN: Soft, non-tender, non-distended with bowel sounds. MUSCULOSKELETAL: No tenderness, deformities, or effusions noted on gross inspection. EXTREMITIES: No cyanosis, clubbing or edema. SKIN: Inspection of the skin reveals no rashes NEUROLOGIC: Alert and oriented x 4. Strength and sensation to light touch were grossly intact x 4. Medications Administered Discontinued Medications Generic Name Dose Route Start Last Admin Trade Name Freq PRN Reason Stop Dose Admin Acetaminophen 975 mg 02/21/23 21:42 02/21/23 21:47 Acetaminophen 325 Mg Tablet PO 02/21/23 21:43 975 mg ONCE ONE Administration Piperacillin Sod/Tazobactam 50 mls @ 100 mls/hr 02/21/23 20:07 02/21/23 21:32 Sod 3.375 gm/ Sodium Chloride IV 02/21/23 20:36 Infused ONCE ONE Infusion Sodium Chloride 500 mls @ 500 mls/hr 02/21/23 20:15 02/21/23 21:32 Ns IV 02/21/23 21:14 Infused .Q1H JAY Infusion Ketorolac Tromethamine 15 mg 02/21/23 21:42 02/21/23 21:47 Ketorolac Tromethamine 30 Mg/Ml Vial IVPUSH 02/21/23 21:43 15 mg ONCE ONE Administration Medical Decision Making Medical Decision Making MDM Narrative: 2007: 88-year-old male with history and clinical presentation most consistent with underlying infection, lactic acid/blood cultures/antibiotics/500 cc of normal saline have been ordered. On review of all investigations to include imaging studies my interpretation is as patient has sepsis with mild confusion and suspected source is UTI. He has received fluids, does not meet criteria for sepsis bolus, has received antibiotics and I discussed the case with inpatient hospitalist who accepts admission. Differential Diagnosis Please see the discussion above Consult Healthcare Provider Management of the patient was discussed with: Hospitalist Please see the discussion above Lab Data Please see the discussion above 02/21/23 20:27 02/21/23 20:27 Labs: Lab Results 02/21/23 02/21/23 02/21/23 Range/Units 20:27 20:27 20:27 WBC 19.0 H (4.8-10.8) X10*3/uL RBC 3.20 L (4.60-5.80) X10*6/uL Hgb 10.1 L (14.0-18.0) g/dl Hct 29.5 L D (42.0-52.0) % MCV 92.2 (80.0-98.0) fL MCH 31.6 (27.0-33.0) pg MCHC 34.2 (31.0-36.0) g/dl RDW 13.1 (11.0-16.0) % Plt Count 282 D (160-400) X10*3/uL MPV 8.2 L (9.4-12.4) fL Immature Gran % (Auto) 1.5 H (0.0-0.4) % Neut % (Auto) 91.9 H (45-73) % Lymph % (Auto) 2.1 L (20-40) % [place] % (Auto) 4.2 (2-11) % Eos % (Auto) 0.1 (0-4) % Baso % (Auto) 0.2 (0-2) % Lymph # (Auto) 0.4 L (1.2-4.9) X10*3/uL [place] # (Auto) 0.8 (0.1-1.2) X10*3/uL Eos # (Auto) 0.0 (0.0-0.4) X10*3/uL Baso # (Auto) 0.0 (0.0-0.2) X10*3/uL Abs Immat Gran (auto) 0.29 H (0.00-0.03) X10*3/uL Absolute Neuts (auto) 17.5 H (2.0-8.3) x10*3/uL Absolute Nucleated RBC 0.000 (0.0-0.012) X10*3/uL Nucleated RBC % (auto) 0.0 (0.0-0.2) /100WBC Smear Tech's Comments VERIFIED Sodium 125 L (135-145) mmol/L Potassium 3.7 (3.3-5.1) mmol/L Chloride 96 (96-108) mmol/L Carbon Dioxide 22 (22-29) mmol/L Anion Gap 11 L (12-20) BUN 11 (9-16) mg/dL Creatinine 0.70 (0.5-1.4) mg/dL Estim Creat Clear Calc 66.3 Estimated GFR > 60 Random Glucose 129 H (60-115) mg/dL Lactic Acid 0.7 (0.5-2.0) mmol/L Calcium 9.0 (8.4-10.2) mg/dL Total Bilirubin 0.8 (0.0-1.0) mg/dL AST 53 H (5-37) U/L ALT 52 H (0-40) U/L Alkaline Phosphatase 93 (39-117) U/L B-Natriuretic Peptide (<100) pg/mL Total Protein 6.5 (6.5-8.0) g/dL Albumin 2.6 L (3.5-5.0) g/dL Urine Color Urine Appearance Urine pH (5.0-9.0) Ur Specific [place] (1.005-1.025) Urine Protein (Neg-Trace) mg/dL Urine Glucose (UA) (Negative) mg/dL Urine Ketones (Negative) mg/dL Urine Blood (Negative) Urine Nitrite (Negative) Ur Leukocyte Esterase (Negative) Urine RBC (0-2) /HPF Urine WBC (0-5) /HPF Ur Squamous Epith Cells (0-2) /HPF Urine Bacteria (None Seen) Hyaline Casts (0-2) /LPF 02/21/23 02/21/23 Range/Units 20:27 22:24 WBC (4.8-10.8) X10*3/uL RBC (4.60-5.80) X10*6/uL Hgb (14.0-18.0) g/dl Hct (42.0-52.0) % MCV (80.0-98.0) fL MCH (27.0-33.0) pg MCHC (31.0-36.0) g/dl RDW (11.0-16.0) % Plt Count (160-400) X10*3/uL MPV (9.4-12.4) fL Immature Gran % (Auto) (0.0-0.4) % Neut % (Auto) (45-73) % Lymph % (Auto) (20-40) % [place] % (Auto) (2-11) % Eos % (Auto) (0-4) % Baso % (Auto) (0-2) % Lymph # (Auto) (1.2-4.9) X10*3/uL [place] # (Auto) (0.1-1.2) X10*3/uL Eos # (Auto) (0.0-0.4) X10*3/uL Baso # (Auto) (0.0-0.2) X10*3/uL Abs Immat Gran (auto) (0.00-0.03) X10*3/uL Absolute Neuts (auto) (2.0-8.3) x10*3/uL Absolute Nucleated RBC (0.0-0.012) X10*3/uL Nucleated RBC % (auto) (0.0-0.2) /100WBC Smear Tech's Comments Sodium (135-145) mmol/L Potassium (3.3-5.1) mmol/L Chloride (96-108) mmol/L Carbon Dioxide (22-29) mmol/L Anion Gap (12-20) BUN (9-16) mg/dL Creatinine (0.5-1.4) mg/dL Estim Creat Clear Calc Estimated GFR Random Glucose (60-115) mg/dL Lactic Acid (0.5-2.0) mmol/L Calcium (8.4-10.2) mg/dL Total Bilirubin (0.0-1.0) mg/dL AST (5-37) U/L ALT (0-40) U/L Alkaline Phosphatase (39-117) U/L B-Natriuretic Peptide 41 (<100) pg/mL Total Protein (6.5-8.0) g/dL Albumin (3.5-5.0) g/dL Urine Color Yellow Urine Appearance Cloudy Urine pH 7.0 (5.0-9.0) Ur Specific [place] 1.020 (1.005-1.025) Urine Protein 100 (2+) H (Neg-Trace) mg/dL Urine Glucose (UA) Negative (Negative) mg/dL Urine Ketones Negative (Negative) mg/dL Urine Blood Moderate (2+) H (Negative) Urine Nitrite Negative (Negative) Ur Leukocyte Esterase Moderate (2+) H (Negative) Urine RBC >20 H (0-2) /HPF Urine WBC >50 H (0-5) /HPF Ur Squamous Epith Cells 0-2 (0-2) /HPF Urine Bacteria 4+ (None Seen) Hyaline Casts 0-2 (0-2) /LPF Independent Interpretation I performed an independent interpretation of an: EKG Interpretation: Normal sinus rhythm, HR-97, no STEMI, TN/QRS/QTC is within normal limits. Radiology Impression Radiologist Impression: My interpretation is in agreement with radiology's impression. Discharge Plan Discharge Clinical Impression: Sepsis, Confusion, Weakness, Acute UTI Patient Disposition: Admitted As Inpatient Prescriptions: No Action oxybutynin chloride 15 mg tablet extended release 24 hr 30 mg PO DAILY Qty: 7 0RF ascorbic acid (vitamin C) 1,000 mg tablet extended release 1,000 mg PO Q12H Qty: 30 0RF aspirin [Adult Low Dose Aspirin] 81 mg tablet,delayed release (DR/EC) 81 mg PO DAILY Qty: 14 0RF sertraline 50 mg tablet 25 mg PO DAILY 90 Days Qty: 45 1RF psyllium husk 0.4 gram capsule 0.8 g PO BEDTIME PRN (Reason: constipation) 30 Days Qty: 60 3RF rosuvastatin 40 mg tablet 40 mg PO DAILY Qty: 30 3RF cholecalciferol (vitamin D3) 25 mcg (1,000 unit) capsule 25 mcg PO DAILY (DME) blood pressure monitor [Blood Pressure Kit] Kit See Rx Instructions .ROUTE .MEDSUPPLY Qty: 1 0RF Rx Instructions: As directed (DME) comp.stocking,knee,long,medium Misc See Rx Instructions .Route Qty: 2 0RF Rx Instructions: As directed meloxicam 15 mg tablet 15 mg PO DAILY mecobalamin (vitamin B12) 1,000 mcg tablet,disintegrating 1,000 mcg sublingual DAILY Rx Instructions: place tablet under tongue and allow to dissolve for at least30 secs before swallowing
--- NOTE | 2023-02-21 22:35 | PC.NURSE ---
Patient BIBA from home to be evaluated for increasing weakness, poor oral intake, urine that is dark in color with foul odor. EMS inserted 20 G IV line in L AC, patient received about 100 mL of NS on the way to ED. Per EMS patient is confused at times. At ED patient noted to have \temp 100.[address] Aldrich notified of elevated temp, labs drawn per MD order, EKG performed. Bolus of 500 mL of NS IV and Zosyn IV administered per NOV. Patient denies any pain at present. Nursing swallow eval completed at bedside, no deficits with swallowing noted. Call valero placed within patient's reach.
[2023-02-21 23:04] VITALS: TEMP 38.1
[2023-02-21 23:09] LABS: Osmolality, Serum 266 mosm/kg (281-305)
[2023-02-21 23:18] LABS: Uric Acid 1.4 mg/dL (3.4-7.0)
--- NOTE | 2023-02-21 23:32 | P.HPHOSP_ITS ---
History of Present Illness Date of Service: 02/21/23 Chief Complaint: weakness 88-year-old male past medical history of HLD, CVA, history of prostate cancer status post radical prostatectomy, history of eczema, dysphagia, PVD who comes into the hospital from home with complaints of weakness, poor oral intake. Nishant vincent is confused, he is oriented to self only, he is not sure why he was brought into the hospital, I he is unaware any symptoms. therefore history is obtained from EMR and ED physician/staff. It appears that patient was sent to the hospital for weakness , decreased oral intake, increased confusion. It appears the patient has also had concentrated urine that has been malodorous. Patient denies any symptoms, when asked about all review of system he states no on arrival to the ED patient found to have a temp of 103.1 degrees, heart rate of 108, Labs are significant for WBC count of 19, hemoglobin of 10.1, sodium of 125, with history of hyponatremia in the past, serum osmolality of 266, AST of 53, ALT of 52, BNP of 41, UA positive for leukocyte Estrace, WBC, bacteria Urine studies pending Chest x-ray shows bilateral calcified pleural plaques and interstitial lung disease, with increased bronchial wall thickening which may be secondary to infection versus inflammatory patient started on antibiotics and will be admitted for further management Review of Systems Review of Systems: Yes all other systems are reviewed and are negative [facility] Medical History (Updated 02/22/23 @ 06:02 by Jaden Martin MD) COVID-19 virus infection Hypercholesterolemia Hyponatremia Low sodium levels Osteoarthritis, shoulder Prostate cancer Venous insufficiency Family History Father Diabetes Surgical History Erectile dysfunction following urethral surgery History of radical prostatectomy Social History Household Members: Significant Other Housing: House Alcohol intake: current Alcohol intake frequency: holidays/special occasions only Patient Tobacco Use Status: Never used Tobacco e-Cigarette/Vaping Use: Never Used Second Hand Smoke Exposure: No Advance Directives: Yes Advance Directives on File: Yes Advance Directives Date on File: 08/24/21 Nutrition Risks: No Nutritional Risk service: Yes Current occupational status: retired 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, 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 [employer] Cognitive needs: Yes (cane) Hearing needs: No Vision needs: Yes Meds Allergies Allergy/AdvReac Type Severity Reaction Status Date / Time No Known Allergies Allergy Mild N/A Verified 02/20/23 14:40 Active Medications: Current Medications Acetaminophen (Acetaminophen 325 Mg Tablet) 650 mg PO Q6H PRN PRN Reason: Pain, Mild (Pain Scale 1-3) Docusate Sodium (Docusate Sodium 100 Mg Capsule) 100 mg PO DAILY PRN PRN Reason: Constipation Heparin Sodium (Porcine) (Heparin Sodium,Porcine 5,000 Unit/Ml Vial) 5,000 unit SUBCUT Q12H JAY Sodium Chloride (Ns) 1,000 mls @ 75 mls/hr IVCONT .[id number] JAY Ceftriaxone Sodium 1 gm/ (Sodium Chloride) 50 mls @ 100 mls/hr IV Q24H JAY Ondansetron HCl (Ondansetron Hcl 4 Mg/2 Ml Vial) 4 mg IVPUSH Q8H PRN PRN Reason: Nausea and Vomiting Sodium Chloride (0.9 % Sodium Chloride Flush 3 Ml Syringe) 3 ml IVFLUSH QSHIFT [facility] Home Medications Medication Instructions Recorded Confirmed Last Taken Type cholecalciferol (vitamin D3) 25 25 mcg PO DAILY 01/17/21 02/20/23 Unknown History mcg (1,000 unit) capsule mecobalamin (vitamin B12) 1,000 1,000 mcg sublingual DAILY 04/25/22 02/20/23 U nknown History mcg disintegrating tablet,sublingual meloxicam 15 mg tablet 15 mg PO DAILY 04/25/22 02/21/23 Unknown History Physical Exam Vital Signs and Narrative: Vital Signs: Last Vital Signs Temp 100.6 F H 02/21/23 23:04 Pulse 86 02/21/23 21:35 Resp 22 H 02/21/23 21:35 BP 109/63 02/21/23 21:35 Pulse Ox 94 02/21/23 21:35 O2 Del Method Room Air 02/21/23 21:35 BMI result Body Mass Index 20.0 Const: Other: confused, oriented to self only, awake and alert General: cooperative and no acute distress Eyes: General: appearance normal, both eyes and all related structures Pupils: Equal, round and reactive pupils present Resp: Other: no respiratory distress, clear to auscultation bilaterally Effort & Inspection: normal respiratory effort Cardio: Rate: regular rate Rhythm: regular rhythm GI: Other: abdomen is soft, nontender, no rebound or guarding Palpation (GI): Soft to palpation Auscultation: normal bowel sounds : Other: malodorous urine, Skin: General skin exam: no rashes or lesions noted Neuro: Cranial nerves: Yes Equal, round and reactive pupils present Extrem: General: Yes normal to inspection and Yes no pedal edema Results Labs 02/21/23 20:27 02/21/23 20:27 Labs: Laboratory Results - last 24 hr 02/21/23 02/21/23 02/21/23 20:27 20:27 20:27 MCV 92.2 MCH 31.6 MCHC 34.2 RDW 13.1 Plt Count 282 D MPV 8.2 L Immature Gran % (Auto) 1.5 H Neut % (Auto) 91.9 H Lymph % (Auto) 2.1 L [place] % (Auto) 4.2 Eos % (Auto) 0.1 Baso % (Auto) 0.2 Lymph # (Auto) 0.4 L [place] # (Auto) 0.8 Eos # (Auto) 0.0 Baso # (Auto) 0.0 Abs Immat Gran (auto) 0.29 H Absolute Neuts (auto) 17.5 H Absolute Nucleated RBC 0.000 Nucleated RBC % (auto) 0.0 Smear Tech's Comments VERIFIED Anion Gap 11 L Estim Creat Clear Calc 66.3 Estimated GFR > 60 Random Glucose 129 H Osmolality Lactic Acid 0.7 Uric Acid 1.4 L Calcium 9.0 Total Bilirubin 0.8 AST 53 H ALT 52 H Alkaline Phosphatase 93 B-Natriuretic Peptide Total Protein 6.5 Albumin 2.6 L Urine Color Urine Appearance Urine pH Ur Specific [place] Urine Protein Urine Glucose (UA) Urine Ketones Urine Blood Urine Nitrite Ur Leukocyte Esterase Urine RBC Urine WBC Ur Squamous Epith Cells Urine Bacteria Hyaline Casts 02/21/23 02/21/23 02/21/23 20:27 20:27 22:24 MCV MCH MCHC RDW Plt Count MPV Immature Gran % (Auto) Neut % (Auto) Lymph % (Auto) [place] % (Auto) Eos % (Auto) Baso % (Auto) Lymph # (Auto) [place] # (Auto) Eos # (Auto) Baso # (Auto) Abs Immat Gran (auto) Absolute Neuts (auto) Absolute Nucleated RBC Nucleated RBC % (auto) Smear Tech's Comments Anion Gap Estim Creat Clear Calc Estimated GFR Random Glucose Osmolality 266 L Lactic Acid Uric Acid Calcium Total Bilirubin AST ALT Alkaline Phosphatase B-Natriuretic Peptide 41 Total Protein Albumin Urine Color Yellow Urine Appearance Cloudy Urine pH 7.0 Ur Specific [place] 1.020 Urine Protein 100 (2+) H Urine Glucose (UA) Negative Urine Ketones Negative Urine Blood Moderate (2+) H Urine Nitrite Negative Ur Leukocyte Esterase Moderate (2+) H Urine RBC >20 H Urine WBC >50 H Ur Squamous Epith Cells 0-2 Urine Bacteria 4+ Hyaline Casts 0-2 Imaging Radiologist's Impressions: Impressions Chest X-Ray 02/21/23 21:29 IMPRESSION: Bilateral calcified pleural plaques and interstitial lung disease limits evaluation of parenchymal details. However, accounting for these limitations, there is suggestion of increased bronchial wall thickening compared to 01/17/2021 which raises the possibility of a acute n infectious or inflammatory process. Recommend a short-term follow-up chest CT for better characterization of the interstitial lung disease, pleural plaques and to rule out underlying lesions. Assessment and Plan (1) Sepsis: Status: Acute (2) Metabolic encephalopathy: Status: Acute (3) Hyponatremia: Status: Acute (4) Normocytic anemia: Status: Acute (5) Acute UTI: Status: Acute (6) Abnormal x-ray: Status: Acute Plan 88-year-old male past medical history as mentioned above presents the hospital with increased confusion, weakness and poor oral intake # sepsis - secondary to UTI, febrile, leukocytosis, tachycardia, tachypnea, start IV antibiotics, follow cultures # metabolic encephalopathy - toxic metabolic encephalopathy secondary to sepsis in the setting of UTI - treat underlying disease - follow mentation # hyponatremia - has evidence of hyponatremia in the past - likely secondary to decreased solute intake - will start him on gentle hydration - follow BMP q.4 hours # normocytic anemia - hemodynamically stable, no evidence of acute bleed - unclear etiology - will obtain stool occult, B12, folic acid, ferritin - follow CBC # abnormal chest x-ray - showing possible evidence of infection - will obtain chest CT - patient on antibiotics as above - follow cultures DVT prophylaxis: Heparin subQ Given patient's need for IV antibiotics for treatment of sepsis patient will require minimum 2 nights inpatient hospital stay for further management and monitoring Time Spent With Patient Time: Total time managing care of this patient today ____ minutes. Quality Stroke Does the patient have a stroke diagnosis?: No VTE Prior VTE?: No VTE Risk Level:: Medical - moderate - high VTE Device Contraindication: Treatment Not Indicated VTE Drug Contraindication: N/A - Med Ordered
[2023-02-21] MEDS: cefTRIAXone sodium 1 GM in 0.9 % Sodium Chloride 50 ML IV (23:59)
[2023-02-21] MEDS: Heparin Sodium,Porcine 5,000 UNIT/ML VIAL 5000 UNIT SUBCUT (23:59)
[2023-02-21] MEDS: 0.9 % Sodium Chloride 1,000 ML 75 ML IVCONT (23:59)
[2023-02-22] VITALS (7 sets, daily range): BP systolic 99–129; BP diastolic 54–63; PULSE 67–99; RESP 16–20; TEMP 36.3–39.6; O2SAT 94–100
[2023-02-22] MEDS: 0.9 % Sodium Chloride Flush 3 ML SYRINGE IVFLUSH ×3 (00:04→23:43)
--- NOTE | 2023-02-22 00:13 | PC.NURSE ---
Nurse to Nurse report given to MILAGROS Gonsalez. Patient transported to ED overflow by assistant dean of students
[2023-02-22 00:45] LABS: Anion Gap 12 (12-20); Blood Urea Nitrogen 12 mg/dL (9-16); Calcium 8.6 mg/dL (8.4-10.2); Carbon Dioxide 21 mmol/L (22-29); Chloride 99 mmol/L (96-108); Creatinine Clr Calc Pharmacy 61.1; Estimated Glomerular Filt Rate > 60; Glucose Random 134 mg/dL (60-115); Potassium 3.6 mmol/L (3.3-5.1); Sodium 128 mmol/L (135-145)
[2023-02-22] MEDS: Acetaminophen 325 MG TABLET 650 MG PO (05:42)
[2023-02-22 06:35] LABS: Basophils Absolute Auto 0.1 X10*3/uL (0.0-0.2); Basophils Percent Auto 0.3 % (0-2); Eosinophils Absolute Auto 0.1 X10*3/uL (0.0-0.4); Eosinophils Percent Auto 0.2 % (0-4); Hemoglobin 9.9 g/dl (14.0-18.0); Imm Gran Abs Auto 0.23 X10*3/uL (0.00-0.03); Imm Gran Pct Auto 1.1 % (0.0-0.4); Lymphocytes Absolute Auto 0.3 X10*3/uL (1.2-4.9); Lymphocytes Percent Auto 1.6 % (20-40); MANUAL DIFF FLAG SCAN; Mean Corpuscular HGB Conc 34.1 g/dl (31.0-36.0); Mean Corpuscular Hemoglobin 31.8 pg (27.0-33.0); Mean Corpuscular Volume 93.2 fL (80.0-98.0); Mean Platelet Volume 8.5 fL (9.4-12.4); Monocytes Absolute Auto 0.5 X10*3/uL (0.1-1.2); Monocytes Percent Auto 2.2 % (2-11); Neutrophils Absolute Auto 20.6 x10*3/uL (2.0-8.3); Neutrophils Percent Auto 94.6 % (45-73); Platelet Count 264 X10*3/uL (160-400); Red Blood Count 3.11 X10*6/uL (4.60-5.80); Red Cell Distribution Width 13.2 % (11.0-16.0); SCAN SMEAR FLAG 1; White Blood Count 21.8 X10*3/uL (4.8-10.8)
[2023-02-22 06:50] LABS: Anion Gap 13 (12-20); Blood Urea Nitrogen 15 mg/dL (9-16); Calcium 8.8 mg/dL (8.4-10.2); Carbon Dioxide 21 mmol/L (22-29); Chloride 99 mmol/L (96-108); Creatinine Clr Calc Pharmacy 59.5; Estimated Glomerular Filt Rate > 60; Glucose Random 120 mg/dL (60-115); Potassium 3.8 mmol/L (3.3-5.1); Sodium 129 mmol/L (135-145)
[2023-02-22 06:55] LABS: Lactic Acid 2.1 mmol/L (0.5-2.0)
[2023-02-22 07:13] LABS: SLIDE REVIEW VERIFIED
[2023-02-22 07:14] LABS: Ferritin 613 ng/mL (20-250)
[2023-02-22 07:38] LABS: Folate 12.6 ng/mL (> or = 4.0); Vitamin B12 > 2000 pg/mL (200-900)
[2023-02-22] MEDS: Aspirin Enteric Coated 81 MG TABLET.DR PO (07:47)
[2023-02-22] MEDS: oxyBUTYnin chloride ER 5 MG TAB.ER.24 30 MG PO (07:48)
[2023-02-22 08:31] LABS: Reflex Lactate? Lactic Acid Added
[2023-02-22 09:29] LABS: ~Lactic Acid-LAB USE ONLY 0.8 mmol/L (0.5-2.0)
--- NOTE | 2023-02-22 09:46 | PHA.MEDREC ---
Pharmacy Consult ? Medication Reconciliation Pharmacy has completed the medication reconciliation. Spoke to patient and daughter to confirm meds. Per daughter Bridget, patient takes oxybutynin 30mg er daily instead of 15mg BID.
--- NOTE | 2023-02-22 09:59 | PC.NURSE ---
Addendum entered by Carrie Asencio RN 02/22/23 10:02: Pt has fever and given Tylenol on previous shift, temperature recheck 97.6. Original Note: Assumed care of patient at 0645, Pt A&Ox3 and cooperative with care. Pt able to take AM medications as ordered, Pharmacy called regarding missing medication from the pyxis. Pt denying pain at this time. Report given to s3 nurse and patient taken off the unit. All safety measures in place.
[2023-02-22] MEDS: Heparin Sodium,Porcine 5,000 UNIT/ML VIAL 5000 UNIT SUBCUT ×2 (11:08→23:43)
--- NOTE | 2023-02-22 12:53 | P.PNIM_ITS ---
Subjective Subjective Date of Service: 02/22/23 Interval History: Seen and evaluated this afternoon Alert and interactive Denies any fever or chills Blood cultures growing GNR sodium improved to 129 No other overnight events Review of Systems Review of Systems: Yes all other systems are reviewed and are negative Physical Exam Vital Signs: Vital Signs: Last Vital Signs Temp 97.4 F 02/22/23 09:20 Pulse 80 02/22/23 09:20 Resp 20 02/22/23 09:20 BP 116/63 02/22/23 09:20 Pulse Ox 95 02/22/23 09:20 O2 Del Method Room Air 02/22/23 09:20 BMI result Body Mass Index 20.0 Const: Other: Constitutional : Awake, interactive, not in distress Neck : Normal inspection, Supple Cardiovascular : RRR, no JVP, no lower extremity edema Respiratory : good bilateral air entry, no crackles, wheezes or rhonchi Gastrointestinal: soft, lax, Normal bowel sounds, Non tender Skin : Warm, Dry Neurological : Alert & oriented x3, No focal deficit Objective Data Active Medications Acetaminophen (Acetaminophen 325 Mg Tablet) 650 mg PO Q6H PRN PRN Reason: Pain, Mild (Pain Scale 1-3) Last Admin: 02/22/23 05:42 Dose: 650 mg Documented By: TINO Aspirin (Aspirin Enteric Coated 81 Mg Tablet.Dr) 81 mg PO DAILY [facility] Last Admin: 02/22/23 07:47 Dose: 81 mg Documented By: WALESKA Docusate Sodium (Docusate Sodium 100 Mg Capsule) 100 mg PO DAILY PRN PRN Reason: Constipation Heparin Sodium (Porcine) (Heparin Sodium,Porcine 5,000 Unit/Ml Vial) 5,000 unit SUBCUT Q12H [facility] Last Admin: 02/22/23 11:08 Dose: 5,000 unit Documented By: SAMEER Ceftriaxone Sodium 1 gm/ (Sodium Chloride) 50 mls @ 100 mls/hr IV Q24H [facility] Last Infusion: 02/22/23 02:12 Dose: 0 mls/hr Documented By: TINO Ondansetron HCl (Ondansetron Hcl 4 Mg/2 Ml Vial) 4 mg IVPUSH Q8H PRN PRN Reason: Nausea and Vomiting Oxybutynin Chloride (Oxybutynin Chloride Er 5 Mg Tab.Er.24) 30 mg PO DAILY [facility] Last Admin: 02/22/23 07:48 Dose: 30 mg Documented By: WALESKA Pharmacy Consult (Consult Rx Perform Med Rec) 1 each MISCELLANE ONCE PRN PRN Reason: Consult order Sodium Chloride (0.9 % Sodium Chloride Flush 3 Ml Syringe) 3 ml IVFLUSH QSHIFT [facility] Last Admin: 02/22/23 09:05 Dose: Not Given Documented By: SAMEER Non-Admin Reason: Previously Administered Labs 02/22/23 06:04 02/22/23 06:04 Labs: Laboratory Results - last 24 hr 02/21/23 02/21/23 02/21/23 20:27 20:27 20:27 MCV 92.2 MCH 31.6 MCHC 34.2 RDW 13.1 Plt Count 282 D MPV 8.2 L Immature Gran % (Auto) 1.5 H Neut % (Auto) 91.9 H Lymph % (Auto) 2.1 L [place] % (Auto) 4.2 Eos % (Auto) 0.1 Baso % (Auto) 0.2 Lymph # (Auto) 0.4 L [place] # (Auto) 0.8 Eos # (Auto) 0.0 Baso # (Auto) 0.0 Abs Immat Gran (auto) 0.29 H Absolute Neuts (auto) 17.5 H Absolute Nucleated RBC 0.000 Nucleated RBC % (auto) 0.0 Smear Tech's Comments VERIFIED Anion Gap 11 L Estim Creat Clear Calc 66.3 Estimated GFR > 60 Random Glucose 129 H Osmolality Lactic Acid 0.7 Lactic Acid F/U @ 2Hr Uric Acid 1.4 L Calcium 9.0 Ferritin Total Bilirubin 0.8 AST 53 H ALT 52 H Alkaline Phosphatase 93 B-Natriuretic Peptide Total Protein 6.5 Albumin 2.6 L Vitamin B12 Folate Urine Color Urine Appearance Urine pH Ur Specific [place] Urine Protein Urine Glucose (UA) Urine Ketones Urine Blood Urine Nitrite Ur Leukocyte Esterase Urine RBC Urine WBC Ur Squamous Epith Cells Urine Bacteria Hyaline Casts 02/21/23 02/21/23 02/21/23 20:27 20:27 22:24 MCV MCH MCHC RDW Plt Count MPV Immature Gran % (Auto) Neut % (Auto) Lymph % (Auto) [place] % (Auto) Eos % (Auto) Baso % (Auto) Lymph # (Auto) [place] # (Auto) Eos # (Auto) Baso # (Auto) Abs Immat Gran (auto) Absolute Neuts (auto) Absolute Nucleated RBC Nucleated RBC % (auto) Smear Tech's Comments Anion Gap Estim Creat Clear Calc Estimated GFR Random Glucose Osmolality 266 L Lactic Acid Lactic Acid F/U @ 2Hr Uric Acid Calcium Ferritin Total Bilirubin AST ALT Alkaline Phosphatase B-Natriuretic Peptide 41 Total Protein Albumin Vitamin B12 Folate Urine Color Yellow Urine Appearance Cloudy Urine pH 7.0 Ur Specific [place] 1.020 Urine Protein 100 (2+) H Urine Glucose (UA) Negative Urine Ketones Negative Urine Blood Moderate (2+) H Urine Nitrite Negative Ur Leukocyte Esterase Moderate (2+) H Urine RBC >20 H Urine WBC >50 H Ur Squamous Epith Cells 0-2 Urine Bacteria 4+ Hyaline Casts 0-2 02/22/23 02/22/23 02/22/23 00:25 06:04 06:04 MCV 93.2 MCH 31.8 MCHC 34.1 RDW 13.2 Plt Count 264 MPV 8.5 L Immature Gran % (Auto) 1.1 H Neut % (Auto) 94.6 H Lymph % (Auto) 1.6 L [place] % (Auto) 2.2 Eos % (Auto) 0.2 Baso % (Auto) 0.3 Lymph # (Auto) 0.3 L [place] # (Auto) 0.5 Eos # (Auto) 0.1 Baso # (Auto) 0.1 Abs Immat Gran (auto) 0.23 H Absolute Neuts (auto) 20.6 H Absolute Nucleated RBC 0.000 Nucleated RBC % (auto) 0.0 Smear Tech's Comments VERIFIED Anion Gap 12 13 Estim Creat Clear Calc 61.1 59.5 Estimated GFR > 60 > 60 Random Glucose 134 H 120 H Osmolality Lactic Acid Lactic Acid F/U @ 2Hr Uric Acid Calcium 8.6 8.8 Ferritin Total Bilirubin AST ALT Alkaline Phosphatase B-Natriuretic Peptide Total Protein Albumin Vitamin B12 Folate Urine Color Urine Appearance Urine pH Ur Specific [place] Urine Protein Urine Glucose (UA) Urine Ketones Urine Blood Urine Nitrite Ur Leukocyte Esterase Urine RBC Urine WBC Ur Squamous Epith Cells Urine Bacteria Hyaline Casts 02/22/23 02/22/23 02/22/23 06:04 06:10 06:10 MCV MCH MCHC RDW Plt Count MPV Immature Gran % (Auto) Neut % (Auto) Lymph % (Auto) [place] % (Auto) Eos % (Auto) Baso % (Auto) Lymph # (Auto) [place] # (Auto) Eos # (Auto) Baso # (Auto) Abs Immat Gran (auto) Absolute Neuts (auto) Absolute Nucleated RBC Nucleated RBC % (auto) Smear Tech's Comments Anion Gap Estim Creat Clear Calc Estimated GFR Random Glucose Osmolality Lactic Acid 2.1 H* Lactic Acid F/U @ 2Hr Uric Acid Calcium Ferritin 613 H Total Bilirubin AST ALT Alkaline Phosphatase B-Natriuretic Peptide Total Protein Albumin Vitamin B12 > 2000 H Folate 12.6 Urine Color Urine Appearance Urine pH Ur Specific [place] Urine Protein Urine Glucose (UA) Urine Ketones Urine Blood Urine Nitrite Ur Leukocyte Esterase Urine RBC Urine WBC Ur Squamous Epith Cells Urine Bacteria Hyaline Casts 02/22/23 09:12 MCV MCH MCHC RDW Plt Count MPV Immature Gran % (Auto) Neut % (Auto) Lymph % (Auto) [place] % (Auto) Eos % (Auto) Baso % (Auto) Lymph # (Auto) [place] # (Auto) Eos # (Auto) Baso # (Auto) Abs Immat Gran (auto) Absolute Neuts (auto) Absolute Nucleated RBC Nucleated RBC % (auto) Smear Tech's Comments Anion Gap Estim Creat Clear Calc Estimated GFR Random Glucose Osmolality Lactic Acid Lactic Acid F/U @ 2Hr 0.8 Uric Acid Calcium Ferritin Total Bilirubin AST ALT Alkaline Phosphatase B-Natriuretic Peptide Total Protein Albumin Vitamin B12 Folate Urine Color Urine Appearance Urine pH Ur Specific [place] Urine Protein Urine Glucose (UA) Urine Ketones Urine Blood Urine Nitrite Ur Leukocyte Esterase Urine RBC Urine WBC Ur Squamous Epith Cells Urine Bacteria Hyaline Casts Microbiology Microbiology Results: Microbiology 02/21/23 20:27 Blood Culture - Preliminary Blood - Venous Prelim: GNR Gram Stain only 02/21/23 20:27 Blood Culture - Preliminary Blood - Venous Prelim: GNR Gram Stain only Assessment and Plan (1) Hyponatremia: Status: Acute (2) Metabolic encephalopathy: Status: Acute (3) Sepsis: Status: Acute (4) Acute UTI: Status: Acute (5) Bacteremia due to Gram-negative bacteria: Status: Acute Plan 88-year-old male past medical history as mentioned above presents the hospital with increased confusion, weakness and poor oral intake # sepsis 2/2 GNR Bactermia from UTI sepsis resolved continue IV antibiotics follow final cultures # Toxic metabolic encephalopathy secondary to infection and hyponatremia treat underlying disease improving reorientation # hyponatremia Secondary to decreased oral intake responded well to gentle hydration follow BMP , goal of correction to 133 first 24 hours # acute on chronic normocytic anemia hemodynamically stable, no evidence of acute bleed pending stool occult normal to high B12, folic acid, ferritin evaluated by hematology as OP; 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 and multipe calcified lung nodules consistent with granulomatous disease pending chest CT patient on antibiotics as above less likely infectious in etiology DVT prophylaxis: Heparin subQ Given patient's need for IV antibiotics for treatment of sepsis patient will require minimum 2 nights inpatient hospital stay for further management and monitoring Time Spent With Patient Time: Total time managing care of this patient today ____ minutes. Quality Stroke Does the patient have a stroke diagnosis?: No VTE Prior VTE?: No VTE Risk Level:: Medical - moderate - high VTE Device Contraindication: Treatment Not Indicated VTE Drug Contraindication: N/A - Med Ordered
[2023-02-22 13:23] LABS: Anion Gap 11 (12-20); Blood Urea Nitrogen 16 mg/dL (9-16); Carbon Dioxide 21 mmol/L (22-29); Chloride 99 mmol/L (96-108); Creatinine Clr Calc Pharmacy 62.7; Estimated Glomerular Filt Rate > 60; Glucose Random 142 mg/dL (60-115); Potassium 3.2 mmol/L (3.3-5.1); Sodium 128 mmol/L (135-145)
[2023-02-22 21:51] LABS: Anion Gap 12 (12-20); Blood Urea Nitrogen 19 mg/dL (9-16); Calcium 9.7 mg/dL (8.4-10.2); Carbon Dioxide 23 mmol/L (22-29); Chloride 96 mmol/L (96-108); Creatinine Clr Calc Pharmacy 65.4; Estimated Glomerular Filt Rate > 60; Glucose Random 102 mg/dL (60-115); Potassium 3.5 mmol/L (3.3-5.1); Sodium 127 mmol/L (135-145)
[2023-02-22] MEDS: cefTRIAXone sodium 1 GM in 0.9 % Sodium Chloride 50 ML IV (23:42)
[2023-02-23] MEDS: Acetaminophen 325 MG TABLET 650 MG PO (00:14)
[2023-02-23 03:10] VITALS: BP 128/60; PULSE 72; RESP 18; TEMP 36.4; O2SAT 95
[2023-02-23 06:50] LABS: Hematocrit 29.7 % (42.0-52.0); Hemoglobin 10.1 g/dl (14.0-18.0); Mean Corpuscular Hemoglobin 31.3 pg (27.0-33.0); Mean Platelet Volume 8.6 fL (9.4-12.4); Platelet Count 279 X10*3/uL (160-400); Red Blood Count 3.23 X10*6/uL (4.60-5.80); White Blood Count 20.4 X10*3/uL (4.8-10.8)
[2023-02-23 06:58] LABS: Anion Gap 9 (12-20); Blood Urea Nitrogen 15 mg/dL (9-16); Calcium 8.8 mg/dL (8.4-10.2); Carbon Dioxide 23 mmol/L (22-29); Chloride 100 mmol/L (96-108); Creatinine Clr Calc Pharmacy 71.4; Estimated Glomerular Filt Rate > 60; Glucose Random 90 mg/dL (60-115); Potassium 3.3 mmol/L (3.3-5.1); Sodium 129 mmol/L (135-145)
[2023-02-23 07:27] VITALS: BP 122/64; PULSE 67; RESP 20; TEMP 36.8; O2SAT 96
[2023-02-23] MEDS: 0.9 % Sodium Chloride Flush 3 ML SYRINGE IVFLUSH ×3 (08:55→21:15)
[2023-02-23] MEDS: Aspirin Enteric Coated 81 MG TABLET.DR PO (08:55)
[2023-02-23] MEDS: Atorvastatin Calcium 80 MG TABLET PO (08:55)
[2023-02-23] MEDS: oxyBUTYnin chloride ER 5 MG TAB.ER.24 30 MG PO (08:55)
[2023-02-23] MEDS: Sertraline HCL 25 MG TABLET PO (08:55)
--- NOTE | 2023-02-23 09:34 | HO.PM.IMPN ---
Subjective Subjective Date of Service: 02/23/23 Interval History: Seen and evaluated this afternoon Alert and interactive Denies any fever or chills Blood cultures growing GNR sodium improved to 129 No other overnight events Review of Systems Review of Systems: Yes all other systems are reviewed and are negative Physical Exam Vital Signs: Vital Signs: Last Vital Signs Temp 98.3 F 02/23/23 07:27 Pulse 67 02/23/23 07:27 Resp 20 02/23/23 07:27 BP 122/64 02/23/23 07:27 Pulse Ox 96 02/23/23 07:27 O2 Del Method Room Air 02/23/23 07:27 BMI result Body Mass Index 20.0 Const: Other: Constitutional : Awake, interactive, not in distress Neck : Normal inspection, Supple Cardiovascular : RRR, no JVP, no lower extremity edema Respiratory : good bilateral air entry, no crackles, wheezes or rhonchi Gastrointestinal: soft, lax, Normal bowel sounds, Non tender Skin : Warm, Dry Neurological : Alert & oriented x3, No focal deficit Objective Data Active Medications Acetaminophen (Acetaminophen 325 Mg Tablet) 650 mg PO Q6H PRN PRN Reason: Pain, Mild (Pain Scale 1-3) Last Admin: 02/23/23 00:14 Dose: 650 mg Documented By: AUNDREA Aspirin (Aspirin Enteric Coated 81 Mg Tablet.) 81 mg PO DAILY [facility] Last Admin: 02/23/23 08:55 Dose: 81 mg Documented By: WALESKA Atorvastatin Calcium (Atorvastatin Calcium 80 Mg Tablet) 80 mg PO DAILY [facility] Last Admin: 02/23/23 08:55 Dose: 80 mg Documented By: WALESKA Docusate Sodium (Docusate Sodium 100 Mg Capsule) 100 mg PO DAILY PRN PRN Reason: Constipation Heparin Sodium (Porcine) (Heparin Sodium,Porcine 5,000 Unit/Ml Vial) 5,000 unit SUBCUT Q12H [facility] Last Admin: 02/22/23 23:43 Dose: 5,000 unit Documented By: AUNDREA Ceftriaxone Sodium 1 gm/ (Sodium Chloride) 50 mls @ 100 mls/hr IV Q24H [facility] Last Infusion: 02/23/23 00:13 Dose: 0 mls/hr Documented By: AUNDREA Ondansetron HCl (Ondansetron Hcl 4 Mg/2 Ml Vial) 4 mg IVPUSH Q8H PRN PRN Reason: Nausea and Vomiting Oxybutynin Chloride (Oxybutynin Chloride Er 5 Mg Tab.Er.24) 30 mg PO DAILY [facility] Last Admin: 02/23/23 08:55 Dose: 30 mg Documented By: WALESKA Pharmacy Consult (Consult Rx Perform Med Rec) 1 each MISCELLANE ONCE PRN PRN Reason: Consult order Psyllium Hydrophilic Mucilloid (Psyllium Seed 3.4 Gm Powd.Pack) 3.4 gm PO BEDTIME PRN PRN Reason: constipation Sertraline HCl (Sertraline Hcl 25 Mg Tablet) 25 mg PO DAILY [facility] Last Admin: 02/23/23 08:55 Dose: 25 mg Documented By: WALESKA Sodium Chloride (0.9 % Sodium Chloride Flush 3 Ml Syringe) 3 ml IVFLUSH QSHIFT [facility] Last Admin: 02/23/23 08:55 Dose: 3 ml Documented By: WALESKA Labs 02/23/23 05:39 02/23/23 05:39 Labs: Laboratory Results - last 24 hr 02/22/23 02/22/23 02/23/23 13:06 21:26 05:39 MCV 92.0 MCH 31.3 MCHC 34.0 RDW 13.0 Plt Count 279 MPV 8.6 L Absolute Nucleated RBC 0.000 Nucleated RBC % (auto) 0.0 Anion Gap 11 L 12 Estim Creat Clear Calc 62.7 65.4 Estimated GFR > 60 > 60 Random Glucose 142 H 102 Calcium 9.0 9.7 D 02/23/23 05:39 MCV MCH MCHC RDW Plt Count MPV Absolute Nucleated RBC Nucleated RBC % (auto) Anion Gap 9 L Estim Creat Clear Calc 71.4 Estimated GFR > 60 Random Glucose 90 Calcium 8.8 D Microbiology Microbiology Results: Microbiology 02/21/23 20:27 Blood Culture - Preliminary Blood - Venous Gram negative janelle 02/21/23 22:36 Urine Culture - Preliminary Urine clean catch - Urine chin top Culture in progress. 02/21/23 20:27 Blood Culture - Preliminary Blood - Venous Prelim: GNR Gram Stain only Assessment and Plan (1) Bacteremia due to Gram-negative bacteria: Status: Acute (2) Metabolic encephalopathy: Status: Acute (3) Sepsis: Status: Acute (4) Weakness: Status: Acute (5) Acute UTI: Status: Acute Plan 88-year-old male past medical history as mentioned above presents the hospital with increased confusion, weakness and poor oral intake # sepsis 2/2 GNR Bactermia from UTI sepsis resolved continue IV antibiotics pending final cultures # Toxic metabolic encephalopathy secondary to infection and hyponatremia treat underlying disease improving reorientation # hyponatremia, acute on chronic Secondary to decreased oral intake Na of 129 follow BMP # acute on chronic normocytic anemia hemodynamically stable, no evidence of acute bleed pending stool occult normal to high B12, folic acid, ferritin evaluated by hematology as OP; 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 and multipe calcified lung nodules consistent with granulomatous disease pending chest CT patient on antibiotics as above less likely infectious in etiology DVT prophylaxis: Heparin subQ Given patient's need for IV antibiotics for treatment of sepsis patient will require minimum 2 nights inpatient hospital stay for further management and monitoring Time Spent With Patient Time: Total time managing care of this patient today ____ minutes. Quality Stroke Does the patient have a stroke diagnosis?: No VTE Prior VTE?: No VTE Risk Level:: Medical - moderate - high VTE Device Contraindication: Treatment Not Indicated VTE Drug Contraindication: N/A - Med Ordered
[2023-02-23] MEDS: Heparin Sodium,Porcine 5,000 UNIT/ML VIAL 5000 UNIT SUBCUT ×2 (10:57→23:53)
--- NOTE | 2023-02-23 11:51 | MHC.CM.PN ---
PT REPORTS HE LIVES ALONE BUT HIS DAUGHTER IS THERE 5 DAYS PER WEEK SHE WORKS FROM HIS HOME PT SAYS HE IS INDEPENDENT WITH CARE AND HAS NO SERVICES HE HAS A WALKER AND GRAB BARS IN THE HOME HE SAYS HE HAS A HCP NAMING HIS DAUGHTERS, SARA AND MYCHAL, HIS AGENTS HIS PCP IS DR SHERLYN CRUZ IMM DELIVERED CURRENT DC PLAN IS HOME VIA FAMILY TRANSPORT
[2023-02-23 15:26] VITALS: BP 102/55; PULSE 68; RESP 18; TEMP 36.8; O2SAT 97
[2023-02-23 16:00] LABS: Creatinine Urine 111.86 mg/dL; Sodium Urine Random < 20.0 mmol/L
[2023-02-23 16:18] LABS: Osmolality Urine 454 mosm/kg (373-1093)
[2023-02-23 20:00] VITALS: BP 101/54; PULSE 70; RESP 18; TEMP 36.7; O2SAT 93
[2023-02-23] MEDS: cefTRIAXone sodium 1 GM in 0.9 % Sodium Chloride 50 ML IV (23:50)
[2023-02-24 04:00] VITALS: BP 147/70; PULSE 68; RESP 17; TEMP 36.5; O2SAT 95
[2023-02-24 07:57] VITALS: BP 125/66; PULSE 69; RESP 18; TEMP 36.6; O2SAT 96
[2023-02-24 09:23] LABS: Hematocrit 30.7 % (42.0-52.0); Hemoglobin 10.1 g/dl (14.0-18.0); Mean Corpuscular HGB Conc 32.9 g/dl (31.0-36.0); Mean Corpuscular Hemoglobin 30.7 pg (27.0-33.0); Mean Corpuscular Volume 93.3 fL (80.0-98.0); Mean Platelet Volume 8.9 fL (9.4-12.4); Platelet Count 303 X10*3/uL (160-400); Red Blood Count 3.29 X10*6/uL (4.60-5.80); Red Cell Distribution Width 13.2 % (11.0-16.0); White Blood Count 14.7 X10*3/uL (4.8-10.8)
[2023-02-24] MEDS: oxyBUTYnin chloride ER 5 MG TAB.ER.24 30 MG PO (09:25)
[2023-02-24] MEDS: Atorvastatin Calcium 80 MG TABLET PO (09:25)
[2023-02-24] MEDS: 0.9 % Sodium Chloride Flush 3 ML SYRINGE IVFLUSH ×3 (09:26→19:40)
[2023-02-24] MEDS: Aspirin Enteric Coated 81 MG TABLET.DR PO (09:26)
[2023-02-24] MEDS: Sertraline HCL 25 MG TABLET PO (09:26)
[2023-02-24 09:47] LABS: Anion Gap 9 (12-20); Blood Urea Nitrogen 12 mg/dL (9-16); Calcium 8.9 mg/dL (8.4-10.2); Carbon Dioxide 27 mmol/L (22-29); Chloride 98 mmol/L (96-108); Creatinine Clr Calc Pharmacy 74.9; Estimated Glomerular Filt Rate > 60; Glucose Random 92 mg/dL (60-115); Potassium 3.4 mmol/L (3.3-5.1); Sodium 131 mmol/L (135-145)
[2023-02-24 09:52] VITALS: BP 125/66; PULSE 69; O2SAT 96
--- NOTE | 2023-02-24 11:42 | PM.DS ---
DS: Providers Provider Date of Service: 02/24/23 Date of admission: 02/21/23 23:27 Primary care physician: Unknown Physician DS: Diagnosis Discharge Diagnosis (1) Bacteremia due to Gram-negative bacteria: Status: Acute (2) Metabolic encephalopathy: Status: Acute (3) Sepsis: Status: Acute (4) Weakness: Status: Acute (5) Acute UTI: Status: Acute (6) Hyponatremia: Status: Acute (7) Confusion: Status: Acute DS: Summary Hospital Course Hospital Course: Admission note HPI 88-year-old male past medical history of HLD, CVA, history of prostate cancer status post radical prostatectomy, history of eczema, dysphagia,? PVD who comes into the hospital from home with complaints of weakness, poor oral intake.? Patient is confused, he is oriented to self only, he is not sure why he was brought into the hospital, I he is unaware any symptoms. therefore history is obtained from EMR and ED physician/staff.? It appears that patient was sent to the hospital for weakness , decreased oral intake, increased confusion.? It appears the patient has also had concentrated urine that has been malodorous.? Patient denies any symptoms, when asked about all review of system he states no ?on arrival to the ED patient found to have a temp of 103.1 degrees, heart rate of 108, Labs are significant for WBC count of 19, hemoglobin of 10.1, sodium of 125,? with history of hyponatremia in the past, serum osmolality of 266, AST of 53, ALT of 52, BNP of 41, UA positive for leukocyte Estrace,? WBC, bacteria Urine studies pending Chest x-ray shows bilateral calcified pleural plaques and interstitial lung disease, with increased bronchial wall thickening which may be secondary to infection versus inflammatory Hospital course The patient was admitted to the hospital for treatment of Toxic metabolic encephalopathy secondary to infection and hyponatremia. Improved back to baseline with treatment of infection and sodium levels. Found to have sepsis 2/2 GNR Bactermia from UTI as blood cultures grew sensitive E.Coli. Treated with IV Ceftriaxone. Plan to continue with Ceftin as outpatient for total of 14 days of antibiotics. Noticed to have hyponatremia, acute on chronic with sodium of 125 secondary to decreased oral intake. improved with hydration and improved oral intake to 131. to repeat blood work as outpatient. Noticed to have mild acute on chronic normocytic anemia. no evidence of acute bleed. normal to high B12, folic acid, ferritin. 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 Continue antibiotics as prescribed Follow with visiting nurses at home for physical therapy Time Spent with Patient Time attestation: Total time managing care of this patient today ____ minutes. Discharge coordination time: Greater than 30 minutes Quality: Safe Use of Opioids Does Pt have an Active Cancer Diagnosis on the Problem List?: No Quality: Stroke Does the patient have a stroke diagnosis?: No Physical Exam Vital Signs: Vital Signs: Last Vital Signs Temp 97.8 F 02/24/23 07:57 Pulse 69 02/24/23 09:52 Resp 18 02/24/23 07:57 BP 125/66 02/24/23 09:52 Pulse Ox 96 02/24/23 09:52 O2 Del Method Room Air 02/24/23 07:57 BMI result Body Mass Index 20.0 Const: Other: Constitutional : Awake, interactive, not in distress Neck : Normal inspection, Supple Cardiovascular : RRR, no JVP, no lower extremity edema Respiratory : good bilateral air entry, no crackles, wheezes or rhonchi Gastrointestinal: soft, lax, Normal bowel sounds, Non tender Skin : Warm, Dry Neurological : Alert & oriented x3, No focal deficit DS: Data Data Completed and Pending Labs on day of discharge: Laboratory Results - last 24 hr 02/23/23 02/23/23 02/24/23 14:47 14:47 08:20 WBC 14.7 H RBC 3.29 L Hgb 10.1 L Hct 30.7 L MCV 93.3 MCH 30.7 MCHC 32.9 RDW 13.2 Plt Count 303 MPV 8.9 L Absolute Nucleated RBC 0.000 Nucleated RBC % (auto) 0.0 Sodium Potassium Chloride Carbon Dioxide Anion Gap BUN Creatinine Estim Creat Clear Calc Estimated GFR Random Glucose Calcium Urine Osmolality 454 Ur Random Sodium < 20.0 Urine Creatinine 111.86 02/24/23 08:20 WBC RBC Hgb Hct MCV MCH MCHC RDW Plt Count MPV Absolute Nucleated RBC Nucleated RBC % (auto) Sodium 131 L Potassium 3.4 Chloride 98 Carbon Dioxide 27 Anion Gap 9 L BUN 12 Creatinine 0.62 Estim Creat Clear Calc 74.9 Estimated GFR > 60 Random Glucose 92 Calcium 8.9 Urine Osmolality Ur Random Sodium Urine Creatinine Imaging Chest x-ray: Radiologist's impression: ITS Impressions Chest X-Ray 02/21/23 21:29 IMPRESSION: Bilateral calcified pleural plaques and interstitial lung disease limits evaluation of parenchymal details. However, accounting for these limitations, there is suggestion of increased bronchial wall thickening compared to 01/17/2021 which raises the possibility of a acute n infectious or inflammatory process. Recommend a short-term follow-up chest CT for better characterization of the interstitial lung disease, pleural plaques and to rule out underlying lesions. Chest CT 02/22/23 12:07 IMPRESSION: No acute lung parenchymal process seen. Extensive bilateral pleural calcified plaques involving diaphragm as well. There is small pleural effusion thickening suspected bilaterally. Fleischner guidelines were followed. Discharge Plan Discharge Anticipated Discharge Date/Time: 02/24/23 11:38 Patient Disposition: Home Health Service Discharge Diagnosis: Sepsis, Bacteremia, urine infection Referrals: Physician,Unknown J [Primary Care Provider] - 1 Week Discharge Medications: New cefuroxime axetil 500 mg tablet 500 mg PO BID Qty: 20 0RF Continued oxybutynin chloride 15 mg tablet extended release 24 hr 30 mg PO DAILY Qty: 7 0RF aspirin [Adult Low Dose Aspirin] 81 mg tablet,delayed release (DR/EC) 81 mg PO DAILY Qty: 14 0RF sertraline 50 mg tablet 25 mg PO DAILY 90 Days Qty: 45 1RF psyllium husk 0.4 gram capsule 0.8 g PO BEDTIME PRN (Reason: constipation) 30 Days Qty: 60 3RF rosuvastatin 40 mg tablet 40 mg PO DAILY Qty: 30 3RF cyanocobalamin (vitamin B-12) 1,000 mcg Tablet 1,000 mcg PO DAILY ascorbic acid (vitamin C) 1,000 mg tablet extended release 1,000 mg PO DAILY cholecalciferol (vitamin D3) 25 mcg (1,000 unit) capsule 25 mcg PO DAILY (DME) blood pressure monitor [Blood Pressure Kit] Kit See Rx Instructions .ROUTE .MEDSUPPLY Qty: 1 0RF Rx Instructions: As directed (DME) comp.stocking,knee,long,medium Misc See Rx Instructions .Route Qty: 2 0RF Rx Instructions: As directed meloxicam 15 mg tablet 15 mg PO DAILY Discharge Orders: Discharge Order (Routine); Ordered 02/24/23 Ordered By: Shelia Strange Diet: Advance to usual diet Activity on Discharge: Use cane or walker Stand Alone Forms: Patient Portal Discharge page Other Ambulatory Orders: Basic Metabolic Panel (Routine) Timeframe: 1 Week Facility: [facility] - Location: Laboratory Ordered By: Shelia Strange Care Plan Goals: Read below Health Concerns: Read below Plan of Treatment: Read below Assessment: You were admitted to the hospital for evaluation of confusion and lethargy. found to be septic from urine infection. treated with IV antibiotics as blood cultures grew a sensitive bacteria called E.Coli. You were able to participate with physical therapy who recommended home therapy. Continue antibiotics as prescribed Follow with visiting nurses at home for physical therapy
--- NOTE | 2023-02-24 11:57 | P.F2F_ITS ---
Service Date Service Date: 02/24/23 Encounter Date of encounter: 02/24/23 Reasons for Services Signs and symptoms assessed: PHysical deconditioning Reason for physical therapy: home safety and mobility and therapeutic exercises Homebound: Leaving the home is medically contraindicated at this time without the asist of a device and/or another person due th the listed conditions above and below. Reason homebound: unsteady gait / fall risk Certification: Based on the above findings, I certify that this patient is confined to the home and needs intermittent chcf care, physical therapy and/or speech therapy, or continues to need occupational therapy. The patient is under my care, and I have initiated the establishment of the plan of care. The patient will be followed by a physician who will periodically review the plan of care. Time Spent With Patient Time: Total time managing care of this patient today ____ minutes.
--- NOTE | 2023-02-24 12:02 | MHC.CM.PN ---
pt dd home with home pt
[2023-02-24] MEDS: Heparin Sodium,Porcine 5,000 UNIT/ML VIAL 5000 UNIT SUBCUT ×2 (12:26→22:49)
--- NOTE | 2023-02-24 15:31 | MHC.CM.PN ---
per rounds pt is ready for dc md will dc tomorrow with leonel
[2023-02-24 15:44] VITALS: BP 100/57; PULSE 67; RESP 18; TEMP 36.2; O2SAT 98
--- NOTE | 2023-02-24 16:29 | P.PNIM_ITS ---
Subjective Subjective Date of Service: 02/24/23 Interval History: Seen and evaluated this afternoon Alert and interactive Denies any fever or chills Blood cultures growing E.Coli sodium improved to 131 No other overnight events Review of Systems Review of Systems: Yes all other systems are reviewed and are negative Physical Exam Vital Signs: Vital Signs: Last Vital Signs Temp 97.1 F 02/24/23 15:44 Pulse 67 02/24/23 15:44 Resp 18 02/24/23 15:44 BP 100/57 L 02/24/23 15:44 Pulse Ox 98 02/24/23 15:44 O2 Del Method Room Air 02/24/23 15:44 BMI result Body Mass Index 20.0 Const: Other: Constitutional : Awake, interactive, not in distress Neck : Normal inspection, Supple Cardiovascular : RRR, no JVP, no lower extremity edema Respiratory : good bilateral air entry, no crackles, wheezes or rhonchi Gastrointestinal: soft, lax, Normal bowel sounds, Non tender Skin : Warm, Dry Neurological : Alert & oriented x3, No focal deficit Objective Data Active Medications Acetaminophen (Acetaminophen 325 Mg Tablet) 650 mg PO Q6H PRN PRN Reason: Pain, Mild (Pain Scale 1-3) Last Admin: 02/23/23 00:14 Dose: 650 mg Documented By: AUNDREA Aspirin (Aspirin Enteric Coated 81 Mg Tablet.) 81 mg PO DAILY [facility] Last Admin: 02/24/23 09:26 Dose: 81 mg Documented By: GLADYS Atorvastatin Calcium (Atorvastatin Calcium 80 Mg Tablet) 80 mg PO DAILY [facility] Last Admin: 02/24/23 09:25 Dose: 80 mg Documented By: GLADYS Docusate Sodium (Docusate Sodium 100 Mg Capsule) 100 mg PO DAILY PRN PRN Reason: Constipation Heparin Sodium (Porcine) (Heparin Sodium,Porcine 5,000 Unit/Ml Vial) 5,000 unit SUBCUT Q12H [facility] Last Admin: 02/24/23 12:26 Dose: 5,000 unit Documented By: GLADYS Ceftriaxone Sodium 1 gm/ (Sodium Chloride) 50 mls @ 100 mls/hr IV Q24H [facility] Last Infusion: 02/24/23 00:45 Dose: 0 mls/hr Documented By: JOEL Ondansetron HCl (Ondansetron Hcl 4 Mg/2 Ml Vial) 4 mg IVPUSH Q8H PRN PRN Reason: Nausea and Vomiting Oxybutynin Chloride (Oxybutynin Chloride Er 5 Mg Tab.Er.24) 30 mg PO DAILY [facility] Last Admin: 02/24/23 09:25 Dose: 30 mg Documented By: GLADYS Pharmacy Consult (Consult Rx Perform Med Rec) 1 each MISCELLANE ONCE PRN PRN Reason: Consult order Psyllium Hydrophilic Mucilloid (Psyllium Seed 3.4 Gm Powd.Pack) 3.4 gm PO BEDTIME PRN PRN Reason: constipation Sertraline HCl (Sertraline Hcl 25 Mg Tablet) 25 mg PO DAILY [facility] Last Admin: 02/24/23 09:26 Dose: 25 mg Documented By: GLADYS Sodium Chloride (0.9 % Sodium Chloride Flush 3 Ml Syringe) 3 ml IVFLUSH QSHIFT [facility] Last Admin: 02/24/23 09:26 Dose: 3 ml Documented By: GLADYS Labs 02/24/23 08:20 02/24/23 08:20 Labs: Laboratory Results - last 24 hr 02/24/23 02/24/23 08:20 08:20 MCV 93.3 MCH 30.7 MCHC 32.9 RDW 13.2 Plt Count 303 MPV 8.9 L Absolute Nucleated RBC 0.000 Nucleated RBC % (auto) 0.0 Anion Gap 9 L Estim Creat Clear Calc 74.9 Estimated GFR > 60 Random Glucose 92 Calcium 8.9 Microbiology Microbiology Results: Microbiology 02/21/23 20:27 Blood Culture - Final Blood - Venous Escherichia coli 02/21/23 20:27 Blood Culture - Final Blood - Venous Escherichia coli 02/21/23 22:36 Urine Culture - Final Urine clean catch - Urine chin top Assessment and Plan (1) Bacteremia due to Gram-negative bacteria: Status: Acute (2) Metabolic encephalopathy: Status: Acute Plan 88-year-old male past medical history as mentioned above presents the hospital with increased confusion, weakness and poor oral intake # sepsis 2/2 E.Coli Bactermia from UTI sepsis resolved continue IV antibiotics # Toxic metabolic encephalopathy secondary to infection and hyponatremia treat underlying disease improving reorientation # hyponatremia, acute on chronic Secondary to decreased oral intake Na of 131 follow BMP # acute on chronic normocytic anemia hemodynamically stable, no evidence of acute bleed pending stool occult normal to high B12, folic acid, ferritin evaluated by hematology as OP; 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 and multipe calcified lung nodules consistent with granulomatous disease pending chest CT patient on antibiotics as above less likely infectious in etiology DVT prophylaxis: Heparin subQ Given patient's need for IV antibiotics for treatment of sepsis patient will require overnight inpatient hospital stay for safe discharge plan as he has no one at home to take care of him and doesnt feel safe going home alone Time Spent With Patient Time: Total time managing care of this patient today ____ minutes. Quality Stroke Does the patient have a stroke diagnosis?: No VTE Prior VTE?: No VTE Risk Level:: Medical - moderate - high VTE Device Contraindication: Treatment Not Indicated VTE Drug Contraindication: N/A - Med Ordered
[2023-02-24 19:28] VITALS: BP 149/69; PULSE 66; RESP 17; TEMP 36.1; O2SAT 95
[2023-02-24] MEDS: cefTRIAXone sodium 1 GM in 0.9 % Sodium Chloride 50 ML IV (22:49)
[2023-02-25 03:20] VITALS: BP 139/77; PULSE 62; RESP 17; TEMP 36.1; O2SAT 97
[2023-02-25 06:35] LABS: Anion Gap 12 (12-20); Blood Urea Nitrogen 11 mg/dL (9-16); Calcium 9.4 mg/dL (8.4-10.2); Carbon Dioxide 23 mmol/L (22-29); Chloride 101 mmol/L (96-108); Creatinine Clr Calc Pharmacy 77.4; Estimated Glomerular Filt Rate > 60; Glucose Random 89 mg/dL (60-115); Potassium 3.9 mmol/L (3.3-5.1); Sodium 132 mmol/L (135-145)
[2023-02-25 07:27] VITALS: BP 139/69; PULSE 68; RESP 20; TEMP 36.6; O2SAT 97
--- NOTE | 2023-02-25 08:49 | MHC.CM.PN ---
DP: PT HAS BEEN MEDICALLY CLEARED FOR DC HOME WITH NEW [facility] SERVICES WITH [facility]. [facility] UPDATED ON DC. PT HAS OWN RIDE HOME.
[2023-02-25] MEDS: 0.9 % Sodium Chloride Flush 3 ML SYRINGE IVFLUSH (08:54)
[2023-02-25] MEDS: Aspirin Enteric Coated 81 MG TABLET.DR PO (09:06)
[2023-02-25] MEDS: oxyBUTYnin chloride ER 5 MG TAB.ER.24 30 MG PO (09:06)
[2023-02-25] MEDS: Sertraline HCL 25 MG TABLET PO (09:06)
[2023-02-25] MEDS: Atorvastatin Calcium 80 MG TABLET PO (09:06)
--- NOTE | 2023-03-07 22:59 | PC.NURSE ---
02/21/2023 Pipercillin IV administered at 20:24 after blood cultures drawn at 20:20.
== END 2023-02-25 10:00 | disposition home health service (06) | DRG 871 ==
LOC: HO.ED 22:54 → HO.EDOVER 23:35 → HO.S3 02-22 07:40
PROVIDERS: Admitting Provider Internal Medicine; Emergency Provider Student in an Organized Health Care Education/Training Program; PCP Internal Medicine; Visit Provider Student in an Organized Health Care Education/Training Program
DX: A41.50 Gram-negative sepsis, unspecified (principal); G92.8 Other toxic encephalopathy; E87.1 Hypo-osmolality and hyponatremia; N39.0 Urinary tract infection, site not specified; J92.0 Pleural plaque with presence of asbestos; D47.2 Monoclonal gammopathy; D64.9 Anemia, unspecified; E78.00 Pure hypercholesterolemia, unspecified; Z85.46 Personal history of malignant neoplasm of prostate; Z79.82 Long term (current) use of aspirin; Z79.899 Other long term (current) drug therapy
CPT/HCPCS: 36415; 71045; 71250; 80048; 80053; 81001; 82607; 82728; 82746; 83605; 83880; 83930; 83935; 84300; 84550; 85025; 85027; 87040; 87077; 87086; 87186; 87205; 93005; 97161; 99285; J0696; J1643; J1885; J2543

== ENCOUNTER 2023-03-06 13:57 | Outpatient (RCR) | payer MEDICARE, SELFPAY | END 2023-04-05 16:00 | disposition home or self-care (01) | LOC: HO.WCC 13:57 | PROVIDERS: PCP Internal Medicine; Visit Provider Surgery | DX: S81.811A Laceration without foreign body, right lower leg, initial encounter (principal); Z79.82 Long term (current) use of aspirin; Z79.899 Other long term (current) drug therapy | CPT/HCPCS: 11042; 99213 ==

== ENCOUNTER 2023-03-14 10:58 | Outpatient (REF) | payer MEDICARE, SELFPAY ==
[2023-03-14 11:22] LABS: MANUAL DIFF FLAG NO
[2023-03-14 11:58] LABS: Appearance Urine Clear; Color Urine Dark Yellow; Glucose Urine UA Negative (Negative); Leukocyte Esterase Urine Negative (Negative); Nitrite Urine Negative (Negative); Specific Gravity - Urine >= 1.030 (1.005-1.025); UMIC TRIGGER UA YES; Urine Blood Negative (Negative); Urine Ketones Trace mg/dL (Negative); Urine Protein 30 (1+) mg/dL (Neg-Trace)
[2023-03-14 11:59] LABS: Basophils Percent Auto 0.1 % (0-2); Eosinophils Percent Auto 0.1 % (0-4); Hematocrit 36.9 % (42.0-52.0); Imm Gran Abs Auto 0.24 X10*3/uL (0.00-0.03); Imm Gran Pct Auto 1.7 % (0.0-0.4); Mean Corpuscular HGB Conc 32.5 g/dl (31.0-36.0); Mean Corpuscular Hemoglobin 31.3 pg (27.0-33.0); Mean Corpuscular Volume 96.1 fL (80.0-98.0); Mean Platelet Volume 9.1 fL (9.4-12.4); Monocytes Absolute Auto 1.4 X10*3/uL (0.1-1.2); Monocytes Percent Auto 10.1 % (2-11); Neutrophils Absolute Auto 10.3 x10*3/uL (2.0-8.3); Platelet Count 279 X10*3/uL (160-400); Red Blood Count 3.84 X10*6/uL (4.60-5.80); White Blood Count 13.9 X10*3/uL (4.8-10.8)
[2023-03-14 12:07] LABS: Bacteria Urine None Seen (None Seen); Hyaline Casts Urine 0-2 /LPF (0-2); Squamous Epithelial Cell Urine 0-2 /HPF (0-2); WBC Urine 0-5 /HPF (0-5)
[2023-03-14 12:34] LABS: B Type Natriuretic Peptide 34 pg/mL (<100)
[2023-03-14 12:58] LABS: Alanine Aminotransferase 56 U/L (0-40); Alkaline Phosphatase 83 U/L (39-117); Anion Gap 12 (12-20); Aspartate Amino Transferase 33 U/L (5-37); Bilirubin Total 0.5 mg/dL (0.0-1.0); Blood Urea Nitrogen 22 mg/dL (9-16); Calcium 9.9 mg/dL (8.4-10.2); Carbon Dioxide 25 mmol/L (22-29); Chloride 101 mmol/L (96-108); Estimated Glomerular Filt Rate > 60; Glucose Random 80 mg/dL (60-115); Potassium 4.1 mmol/L (3.3-5.1); Sodium 134 mmol/L (135-145); Total Protein 6.4 g/dL (6.5-8.0)
== END 2023-03-14 10:59 | disposition home or self-care (01) ==
LOC: HO.LAB 10:58
PROVIDERS: Student in an Organized Health Care Education/Training Program; PCP Internal Medicine; Visit Provider Nurse Practitioner Family
DX: R63.0 Anorexia (principal); R60.0 Localized edema
CPT/HCPCS: 36415; 80053; 81001; 83880; 85025

== ENCOUNTER 2023-03-28 13:46 | Outpatient (AMB) | payer MEDICARE, SELFPAY ==
--- NOTE | 2023-03-28 13:50 | A.OFFVIS_ITS ---
Intake Vital Signs 03/28/23 14:20 Height 5 ft 10 in Weight 140 lb BMI 20.1 BP 106/59 L Blood Pressure Location Lt brachial Position Sitting Pulse 77 Intake Visit Reasons: Diarrhea Intake Note: Patient new consult for diarrhea. Patient cc: daily black diarrhea x one year. Denies any other GI issues. 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 PVD?gram-negative bacteremia E coli in 02/21/23, hyponatremia, chronic venous stasis dermatitis is here today for initial consultation. Recently admitted for sepsis. Patient last several months he has been having constipation 10 diarrhea. Patient reports that his stools are black. Patient has been losing weight, history of anorexia had upper endoscopy done in May of 2022 while in the hospital. Patient was admitted then for early satiety, anorexia, weight loss. Patient did not had colonoscopy then. Patient continues to have dyspepsia, occasional dysphagia without odynophagia. Patient denies nausea or vomiting. Reports to have loose stools and then occasional constipation. Patient has been having increased bilateral lower extremity swelling and has an appointment with vascular surgeon. Patient denies hematochezia. Patient is taking Culturelle twice a day. Patient denies any abdominal or discomfort. Denies any abdominal cramping. Patient is eating little better. Gained 10 lb since February 20 appointment with his PCP. Patient denies any other GI concerning symptoms. ON LICENSE OF [facility] Medical History COVID-19 virus infection Hypercholesterolemia Hyponatremia Low sodium levels Normocytic anemia Osteoarthritis, shoulder Prostate cancer Venous insufficiency Surgical History Erectile dysfunction following urethral surgery History of radical prostatectomy Family History Father Diabetes Social History Household Members: Children Household Members Other:: daughter Housing: House Do you presently have visiting nurse or other home services: Yes ([facility]) Alcohol intake: current Alcohol intake frequency: does not drink Patient Tobacco Use Status: Never used Tobacco e-Cigarette/Vaping Use: Never Used Second Hand Smoke Exposure: No Advance Directives Date on File: 08/24/21 service: No Current occupational status: retired 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, 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 [employer] Cognitive needs: Yes (cane) Hearing needs: No Vision needs: Yes Review of Systems Const Denies weight gain and Denies weight loss ENT Reports no additional complaints, Denies dysphagia and Denies odynophagia Card Reports no additional complaints Resp Reports no additional complaints GI Denies abdominal pain, Denies belching, Denies melena, Denies bloating, Denies change in bowel habits, Denies dysphagia, Denies excessive flatus, Denies dyspepsia, Denies heartburn, Denies diarrhea, Reports loose stools, Denies nausea, Denies odynophagia and Denies vomiting Reports no additional complaints Musc Reports no additional complaints Neuro Reports no additional complaints Psych Reports no additional complaints Endo Reports no additional complaints Physical Exam Vital Signs: Last Vital Signs Pulse 77 03/28/23 14:20 BP 106/59 L 03/28/23 14:20 BMI result Body Mass Index 20.1 Const General: no acute distress Nutritional Appearance: underweight Orientation/consciousness: patient oriented x3 HEENT Head: Yes normal to inspection, Yes normocephalic and Yes atraumatic Face and sinus: Yes normal facial exam Mouth: Normal oral and palatal mucosa present Throat: Yes posterior oropharynx normal, Yes tonsils normal and Yes uvula midline Eyes General: appearance normal, both eyes and all related structures Neck Neck: Yes normal visual inspection, Yes full ROM and Yes trachea midline Thyroid: Thyroid normal Resp Effort & Inspection: normal respiratory effort, able to speak in complete sentences, no tracheal deviation and symmetric chest movement Auscultation: clear to auscultation bilaterally Cardio Rate: regular rate Heart sounds: S1 normal heart sound present and S2 normal heart sound present GI Inspection: Yes normal to inspection and No distended Palpation (GI): Soft to palpation, not firm, nontender and No hepatosplenomegaly present Auscultation: normal bowel sounds General: Yes no CVA tenderness Back/Spine/Pelvis Back: no CVA tenderness Skin General skin exam: elasticity normal, turgor normal and dry skin Neuro General: patient oriented x3 Extrem Other: Right lower extremity wound Psych Appearance: grossly normal Mental Status: mental status grossly normal Speech and movement: Normal speech and movement present Assessment & Plan Assessment & Plan (1) Diarrhea: Code(s): R19.7 - Diarrhea, unspecified Qualifiers: Diarrhea type: unspecified type Qualified Code(s): R19.7 - Diarrhea, unspecified (2) Decreased appetite: Code(s): R63.0 - Anorexia (3) Melena: Code(s): K92.1 - Melena (4) Weight loss: Code(s): R63.4 - Abnormal weight loss Plan Will order GI panel, PCP ordered C diff. patient will take probiotic once a day. He will try to take Citrucel to help bulk his stool. Will check vitamin-D level, thyroid. Patient was encouraged to go and get his blood work done today. Pending blood work ordered by his PCP: CBC, CMP, BNP. I will see him in 4 weeks, sooner on as needed basis. Patient is agreeable to plan of care and verbalizes understanding of instructions. He was given the opportunity to ask questions and all questions answered. Orders: Orders Vitamin D 25-OH (D2 and D3) 03/28/23 E55.9 - Vitamin D deficiency, unspecified GI Panel 03/28/23 R19.7 - Diarrhea, unspecified TSH reflex Free T4 03/28/23 K59.00 - Constipation, unspecified Medications: New methylcellulose (laxative) (Citrucel) take it with full glass of water 500 mg PO DAILY 90 tabs 2RF K59.00 - Constipation, unspecified Changed From Lactobacillus rhamnosus GG 1 cap PO BID 30 caps 0RF To Lactobacillus rhamnosus GG (Culturelle) 1 cap PO DAILY 30 caps 0RF Discontinued ascorbic acid (vitamin C) ER 1,000 mg PO Q12H 30 tabs 0RF Coding Level of Care Code New Pt Level 4 (26880) Diagnoses Diarrhea R19.7 Diarrhea type: unspecified type Decreased appetite R63.0 Melena K92.1 Weight loss R63.4 Time Spent (min) 50 Comment 30 minutes spent with patient and additional 20 minutes spent reviewing his records
[2023-03-28 14:20] VITALS: BP 106/59; PULSE 77; BMI 20.1
== END 2023-03-28 14:57 | disposition home or self-care (01) ==
PROVIDERS: PCP Internal Medicine; Visit Provider Nurse Practitioner Family
DX: R19.7 Diarrhea, unspecified (principal); R63.0 Anorexia; K92.1 Melena; R63.4 Abnormal weight loss
CPT/HCPCS: 99204

== ENCOUNTER 2023-03-28 13:46 | Outpatient (REF) | payer MEDICARE, SELFPAY ==
[2023-03-28 15:28] LABS: MANUAL DIFF FLAG NO
[2023-03-28 15:56] LABS: Basophils Percent Auto 0.3 % (0-2); Eosinophils Absolute Auto 0.1 X10*3/uL (0.0-0.4); Eosinophils Percent Auto 0.5 % (0-4); Hemoglobin 11.6 g/dl (14.0-18.0); Imm Gran Abs Auto 0.16 X10*3/uL (0.00-0.03); Imm Gran Pct Auto 1.2 % (0.0-0.4); Lymphocytes Absolute Auto 1.7 X10*3/uL (1.2-4.9); Lymphocytes Percent Auto 12.7 % (20-40); Mean Corpuscular HGB Conc 32.2 g/dl (31.0-36.0); Mean Corpuscular Hemoglobin 31.7 pg (27.0-33.0); Mean Corpuscular Volume 98.4 fL (80.0-98.0); Mean Platelet Volume 8.7 fL (9.4-12.4); Monocytes Absolute Auto 1.2 X10*3/uL (0.1-1.2); Monocytes Percent Auto 9.1 % (2-11); Neutrophils Absolute Auto 9.9 x10*3/uL (2.0-8.3); Neutrophils Percent Auto 76.2 % (45-73); Platelet Count 201 X10*3/uL (160-400); Red Blood Count 3.66 X10*6/uL (4.60-5.80); Red Cell Distribution Width 15.8 % (11.0-16.0)
[2023-03-28 16:49] LABS: Alanine Aminotransferase 24 U/L (0-40); Albumin Level 3.3 g/dL (3.5-5.0); Alkaline Phosphatase 83 U/L (39-117); Anion Gap 12 (12-20); Aspartate Amino Transferase 21 U/L (5-37); Bilirubin Total 0.4 mg/dL (0.0-1.0); Blood Urea Nitrogen 16 mg/dL (9-16); Carbon Dioxide 26 mmol/L (22-29); Chloride 96 mmol/L (96-108); Estimated Glomerular Filt Rate > 60; Glucose Random 92 mg/dL (60-115); Potassium 4.6 mmol/L (3.3-5.1); Sodium 129 mmol/L (135-145); Total Protein 7.2 g/dL (6.5-8.0)
[2023-03-28 17:08] LABS: TSH reflex Free T4 1.41 uIU/mL (0.32-4.0)
[2023-04-03 12:48] LABS: Vitamin D 25-OH, D2 <4 ng/mL; Vitamin D 25-OH, D3 32 ng/mL; Vitamin D 25-OH, Total 32 ng/mL (30-100)
== END 2023-03-28 13:47 | disposition home or self-care (01) ==
LOC: HO.LAB 13:46
PROVIDERS: Nurse Practitioner Family; PCP Internal Medicine; Visit Provider Nurse Practitioner Family
DX: R60.0 Localized edema (principal); R19.7 Diarrhea, unspecified; E78.5 Hyperlipidemia, unspecified; R63.0 Anorexia; K92.1 Melena; R63.4 Abnormal weight loss; E55.9 Vitamin D deficiency, unspecified; K59.00 Constipation, unspecified
CPT/HCPCS: 36415; 80053; 82306; 84443; 85025; 99202

== ENCOUNTER 2023-04-02 11:56 | Inpatient (IN) | payer MEDICARE, SELFPAY ==
[2023-04-02] VITALS (9 sets, daily range): BP systolic 112–140; BP diastolic 55–80; PULSE 75–91; RESP 16–22; TEMP 35.9–39.3; O2SAT 91–98; BMI 20.8; BMI 20.3
--- NOTE | ~2023-04-02 | XR_ITS ---
EXAMINATION: XR CHEST CLINICAL INFORMATION: Fever. COMPARISON: CT chest 02/22/2023. Chest radiograph 02/21/2023. TECHNIQUE: Frontal view of the chest was obtained. FINDINGS: Stable appearance of the cardiomediastinal silhouette. Bilateral calcified pleural plaques without distinct new focal consolidation, pleural effusion or pneumothorax, though the evaluation is somewhat limited due to overlying pleural plaques. No acute osseous abnormalities. Degenerative changes in the left greater than right shoulders. XR/XR chest 1V IMPRESSION: Redemonstration of bilateral calcified pleural plaques without distinct new focal airspace opacity. No pleural effusion or pneumothorax. Correlation with CT chest could be obtained as clinically indicated.
--- NOTE | 2023-04-02 13:15 | ED_ITS ---
HPI - General Adult General Chief complaint: General Medical Stated complaint: LEG SWELLING,MULTI FALLS Time Seen by Provider: 04/02/23 13:14 Source: EMS and RN notes reviewed Mode of arrival: EMS History of Present Illness HPI narrative: 88-year-old male past medical history of HLD, CVA, history of prostate cancer status post radical prostatectomy, history of eczema, dysphagia,? PVD?gram- negative bacteremia E coli in 02/21/23, hyponatremia, chronic venous stasis dermatitis apparently was alone in the house was coming to the room from the bathroom lost balance and fell next to his bed bringing down the shelving was unable to get up and stayed on the floor all night in a.m. at 08:00 o'clock family came patient had food and fluids came here for evaluation denies any significant head injury no loss of consciousness feels very cold no urinary symptoms Related Data Home Medications Medication Instructions Recorded Confirmed cholecalciferol (vitamin D3) 25 25 mcg PO DAILY 01/17/21 04/02/23 mcg (1,000 unit) capsule meloxicam 15 mg tablet 15 mg PO DAILY 04/25/22 04/02/23 ascorbic acid (vitamin C) 1,000 mg 1,000 mg PO DAILY 02/22/23 04/02/23 tablet,extended release cyanocobalamin (vitamin B-12) 1,000 mcg PO DAILY 02/22/23 04/02/23 1,000 mcg tablet cephalexin 500 mg capsule 500 mg PO TID infectious disease 03/14/23 04/02/23 Previous Rx's Medication Instructions Recorded aspirin 81 mg tablet,delayed 81 mg PO DAILY #14 tabs 11/15/20 release (Adult Low Dose Aspirin) comp.stocking,knee,long,medium #2 ea 08/13/22 sertraline 50 mg tablet 25 mg PO DAILY 90 days #45 tabs 12/16/22 rosuvastatin 40 mg tablet 40 mg PO DAILY #30 tabs 02/05/23 Lactobacillus rhamnosus GG 10 1 cap PO DAILY #30 caps 03/28/23 billion cell capsule (Culturelle) methylcellulose (laxative) 500 mg 500 mg PO DAILY #90 tabs 03/28/23 tablet (Citrucel) Allergies Allergy/AdvReac Type Severity Reaction Status Date / Time No Known Allergies Allergy Mild N/A Verified 03/28/23 13:50 Review of Systems Review of Systems: Yes all other systems are reviewed and are negative [facility] Past Medical History Medical History COVID-19 virus infection Hypercholesterolemia Hyponatremia Low sodium levels Normocytic anemia Osteoarthritis, shoulder Prostate cancer Venous insufficiency Surgical History Erectile dysfunction following urethral surgery History of radical prostatectomy Family History Family History Father Diabetes Social History Social History Household Members: None Housing: House Do you presently have visiting nurse or other home services: No Alcohol intake: current Alcohol intake frequency: does not drink Patient Tobacco Use Status: Never used Tobacco Smoked in Last 30 Days: No e-Cigarette/Vaping Use: Never Used Second Hand Smoke Exposure: No Use of substances other than those prescribed or required for medical reasons: No Advance Directives: Yes Advance Directives on File: Yes Advance Directives Date on File: 08/24/21 service: No Current occupational status: retired 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, 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 [employer] Cognitive needs: Yes (cane) Hearing needs: No Vision needs: Yes Physical Exam ED Vital Signs: Vital Signs - 24 hr 04/02/23 12:05 04/02/23 13:30 04/02/23 14:00 Temperature 97.2 F 100.9 F H 100.7 F H Pulse Rate 90 90 90 Respiratory Rate 20 22 H 18 Blood Pressure 140/69 H 124/73 115/67 Pulse Oximetry 91 L 96 95 Oxygen Delivery Method Room Air Room Air Room Air 04/02/23 14:30 04/02/23 16:00 Temperature 100.5 F H 99.4 F Pulse Rate 85 77 Respiratory Rate 16 16 Blood Pressure 112/58 L 117/62 Pulse Oximetry 94 98 Oxygen Delivery Method Room Air Room Air BMI result Body Mass Index 20.8 Appearance: Alert. Oriented X3. No acute distress. Febrile to touch Eyes: PERRLA, No Nystagmus ENT: Pharynx normal. Oral Mucosa moist Neck: Normal inspection. Neck supple. No midline tenderness CVS: Normal heart rate and rhythm. Pulses normal. Respiratory: No respiratory distress. Equal air entry bilateral, no wheezing/rales/rhonchi Abdomen: Soft and nontender. Bowel sounds are present, no mass palpable, no CVA tenderness Skin: Skin warm and dry. Normal skin color. Normal skin turgor. Extremities: No lower extremity edema. No calf tenderness Neuro: Oriented X 3. No motor deficit. No sensory deficit.No cerebellar signs , cranial nerves II-XII intact Medications Administered Generic Name Dose Route Start Last Admin Trade Name Freq PRN Reason Stop Dose Admin Enoxaparin Sodium 40 mg 04/02/23 18:00 04/02/23 19:45 Enoxaparin Sodium 40 Mg/0.4 Ml Syringe SUBCUT 40 mg Q24H JAY Administration Discontinued Medications Generic Name Dose Route Start Last Admin Trade Name Freq PRN Reason Stop Dose Admin Acetaminophen 650 mg 04/02/23 13:33 04/02/23 14:15 Acetaminophen 325 Mg Tablet PO 04/02/23 13:34 650 mg ONCE ONE Administration Sodium Chloride 1,000 mls @ 999 mls/hr 04/02/23 13:32 04/02/23 16:00 Ns IV 04/02/23 14:32 Infused .Q1H1M ONE Infusion Ceftriaxone Sodium 2 gm/ 50 mls @ 100 mls/hr 04/02/23 13:53 04/02/23 15:01 Sodium Chloride IV 04/02/23 14:22 Infused ONCE ONE Infusion Sodium Chloride 1,000 mls @ 999 mls/hr 04/02/23 15:10 04/02/23 17:58 Ns IV 04/02/23 16:10 Infused .Q1H1M ONE Infusion Medical Decision Making Medical Decision Making [facility] Narrative: Patient with fever weakness with recent history of Gram-negative bacteremia will admit patient for IV hydration treat empirically with IV Rocephin pending blood cultures Differential Diagnosis Differential Diagnoses: The differential diagnosis associated with the presentation includes Weakness/bacteremia/UTI/pneumonia Consult Healthcare Provider Management of the patient was discussed with: Hospitalist Lab Data [facility] Lab Attestation statement: I reviewed the patient's lab results. 04/02/23 13:43 04/02/23 13:43 Labs: Lab Results 04/02/23 04/02/23 04/02/23 Range/Units 13:43 13:43 13:43 WBC 12.8 H (4.8-10.8) X10*3/uL RBC 3.44 L (4.60-5.80) X10*6/uL Hgb 11.0 L (14.0-18.0) g/dl Hct 33.4 L (42.0-52.0) % MCV 97.1 (80.0-98.0) fL MCH 32.0 (27.0-33.0) pg MCHC 32.9 (31.0-36.0) g/dl RDW 15.3 (11.0-16.0) % Plt Count 276 D (160-400) X10*3/uL MPV 9.0 L (9.4-12.4) fL Immature Gran % (Auto) 1.5 H (0.0-0.4) % Neut % (Auto) 82.9 H (45-73) % Lymph % (Auto) 8.0 L (20-40) % [place] % (Auto) 6.6 (2-11) % Eos % (Auto) 0.6 (0-4) % Baso % (Auto) 0.4 (0-2) % Lymph # (Auto) 1.0 L (1.2-4.9) X10*3/uL [place] # (Auto) 0.8 (0.1-1.2) X10*3/uL Eos # (Auto) 0.1 (0.0-0.4) X10*3/uL Baso # (Auto) 0.1 (0.0-0.2) X10*3/uL Abs Immat Gran (auto) 0.19 H (0.00-0.03) X10*3/uL Absolute Neuts (auto) 10.6 H (2.0-8.3) x10*3/uL Absolute Nucleated RBC 0.000 (0.0-0.012) X10*3/uL Nucleated RBC % (auto) 0.0 (0.0-0.2) /100WBC Sodium 127 L (135-145) mmol/L Potassium 4.0 (3.3-5.1) mmol/L Chloride 95 L (96-108) mmol/L Carbon Dioxide 27 (22-29) mmol/L Anion Gap 9 L (12-20) BUN 12 (9-16) mg/dL Creatinine 0.66 (0.5-1.4) mg/dL Estim Creat Clear Calc 73.4 Estimated GFR > 60 Random Glucose 101 (60-115) mg/dL Lactic Acid 1.0 (0.5-2.0) mmol/L Calcium 9.2 D (8.4-10.2) mg/dL Magnesium 1.8 (1.6-2.6) mg/dL Total Bilirubin 0.6 (0.0-1.0) mg/dL AST 19 (5-37) U/L ALT 20 (0-40) U/L Alkaline Phosphatase 80 (39-117) U/L Total Creatine Kinase 33 L (38-174) U/L Total Protein 7.1 (6.5-8.0) g/dL Albumin 2.9 L (3.5-5.0) g/dL Urine Color Urine Appearance Urine pH (5.0-9.0) Ur Specific [place] (1.005-1.025) Urine Protein (Neg-Trace) mg/dL Urine Glucose (UA) (Negative) mg/dL Urine Ketones (Negative) mg/dL Urine Blood (Negative) Urine Nitrite (Negative) Ur Leukocyte Esterase (Negative) Urine RBC (0-2) /HPF Urine WBC (0-5) /HPF Ur Squamous Epith Cells (0-2) /HPF Urine Bacteria (None Seen) Hyaline Casts (0-2) /LPF Ur Random Sodium mmol/L COVID-19 ([facility]INA) (Negative) COVID-19 Clin Com 04/02/23 04/02/23 04/02/23 Range/Units 15:24 15:24 16:24 WBC (4.8-10.8) X10*3/uL RBC (4.60-5.80) X10*6/uL Hgb (14.0-18.0) g/dl Hct (42.0-52.0) % MCV (80.0-98.0) fL MCH (27.0-33.0) pg MCHC (31.0-36.0) g/dl RDW (11.0-16.0) % Plt Count (160-400) X10*3/uL MPV (9.4-12.4) fL Immature Gran % (Auto) (0.0-0.4) % Neut % (Auto) (45-73) % Lymph % (Auto) (20-40) % [place] % (Auto) (2-11) % Eos % (Auto) (0-4) % Baso % (Auto) (0-2) % Lymph # (Auto) (1.2-4.9) X10*3/uL [place] # (Auto) (0.1-1.2) X10*3/uL Eos # (Auto) (0.0-0.4) X10*3/uL Baso # (Auto) (0.0-0.2) X10*3/uL Abs Immat Gran (auto) (0.00-0.03) X10*3/uL Absolute Neuts (auto) (2.0-8.3) x10*3/uL Absolute Nucleated RBC (0.0-0.012) X10*3/uL Nucleated RBC % (auto) (0.0-0.2) /100WBC Sodium (135-145) mmol/L Potassium (3.3-5.1) mmol/L Chloride (96-108) mmol/L Carbon Dioxide (22-29) mmol/L Anion Gap (12-20) BUN (9-16) mg/dL Creatinine (0.5-1.4) mg/dL Estim Creat Clear Calc Estimated GFR Random Glucose (60-115) mg/dL Lactic Acid (0.5-2.0) mmol/L Calcium (8.4-10.2) mg/dL Magnesium (1.6-2.6) mg/dL Total Bilirubin (0.0-1.0) mg/dL AST (5-37) U/L ALT (0-40) U/L Alkaline Phosphatase (39-117) U/L Total Creatine Kinase (38-174) U/L Total Protein (6.5-8.0) g/dL Albumin (3.5-5.0) g/dL Urine Color Dark Yellow Urine Appearance Clear Urine pH 6.5 (5.0-9.0) Ur Specific [place] 1.020 (1.005-1.025) Urine Protein 100 (2+) H (Neg-Trace) mg/dL Urine Glucose (UA) Negative (Negative) mg/dL Urine Ketones 15 (Negative) mg/dL Urine Blood Small (1+) H (Negative) Urine Nitrite Negative (Negative) Ur Leukocyte Esterase Trace H (Negative) Urine RBC >20 H (0-2) /HPF Urine WBC 0-5 (0-5) /HPF Ur Squamous Epith Cells 0-2 (0-2) /HPF Urine Bacteria None Seen (None Seen) Hyaline Casts 0-2 (0-2) /LPF Ur Random Sodium 159.0 mmol/L COVID-19 ([facility]ARINA) Negative (Negative) COVID-19 Clin Com See Note Discharge Plan Discharge Clinical Impression: Fever, Weakness Patient Disposition: Admitted As Inpatient
--- NOTE | 2023-04-02 13:54 | PC.NURSE ---
IV and labs drawn for a sepsis alert, labs drawn at 1350pm
[2023-04-02] MEDS: 0.9 % Sodium Chloride 1,000 ML 999 ML IV ×2 (14:14→15:40)
[2023-04-02] MEDS: cefTRIAXone sodium 2 GM in 0.9 % Sodium Chloride 50 ML IV (14:15)
[2023-04-02] MEDS: Acetaminophen 325 MG TABLET 650 MG PO ×2 (14:15→23:28)
[2023-04-02 14:49] LABS: MANUAL DIFF FLAG NO
[2023-04-02 15:00] LABS: Basophils Absolute Auto 0.1 X10*3/uL (0.0-0.2); Basophils Percent Auto 0.4 % (0-2); Eosinophils Absolute Auto 0.1 X10*3/uL (0.0-0.4); Eosinophils Percent Auto 0.6 % (0-4); Hematocrit 33.4 % (42.0-52.0); Imm Gran Abs Auto 0.19 X10*3/uL (0.00-0.03); Imm Gran Pct Auto 1.5 % (0.0-0.4); Mean Corpuscular HGB Conc 32.9 g/dl (31.0-36.0); Mean Corpuscular Volume 97.1 fL (80.0-98.0); Monocytes Absolute Auto 0.8 X10*3/uL (0.1-1.2); Monocytes Percent Auto 6.6 % (2-11); Neutrophils Absolute Auto 10.6 x10*3/uL (2.0-8.3); Neutrophils Percent Auto 82.9 % (45-73); Platelet Count 276 X10*3/uL (160-400); Red Blood Count 3.44 X10*6/uL (4.60-5.80); Red Cell Distribution Width 15.3 % (11.0-16.0); White Blood Count 12.8 X10*3/uL (4.8-10.8)
[2023-04-02 15:17] LABS: Alanine Aminotransferase 20 U/L (0-40); Albumin Level 2.9 g/dL (3.5-5.0); Alkaline Phosphatase 80 U/L (39-117); Anion Gap 9 (12-20); Aspartate Amino Transferase 19 U/L (5-37); Bilirubin Total 0.6 mg/dL (0.0-1.0); Blood Urea Nitrogen 12 mg/dL (9-16); Calcium 9.2 mg/dL (8.4-10.2); Carbon Dioxide 27 mmol/L (22-29); Chloride 95 mmol/L (96-108); Creatinine Clr Calc Pharmacy 73.4; Estimated Glomerular Filt Rate > 60; Glucose Random 101 mg/dL (60-115); Magnesium 1.8 mg/dL (1.6-2.6); Sodium 127 mmol/L (135-145); Total Protein 7.1 g/dL (6.5-8.0)
[2023-04-02 15:34] LABS: Appearance Urine Clear; Color Urine Dark Yellow; Glucose Urine UA Negative (Negative); Leukocyte Esterase Urine Trace (Negative); Nitrite Urine Negative (Negative); PH 6.5 (5.0-9.0); UMIC TRIGGER UACC YES; Urine Blood Small (1+) (Negative); Urine Ketones 15 mg/dL (Negative); Urine Protein 100 (2+) mg/dL (Neg-Trace)
[2023-04-02 15:39] LABS: Bacteria Urine None Seen (None Seen); Hyaline Casts Urine 0-2 /LPF (0-2); RBC Urine >20 /HPF (0-2); Squamous Epithelial Cell Urine 0-2 /HPF (0-2); WBC Urine 0-5 /HPF (0-5)
--- NOTE | 2023-04-02 16:25 | MHC.EDTECH ---
THIS PCT ASSUMED CARE OF PATIENT AT 1515 ,VITALS SIGN TAKEN ,VITALS SIGN TAKEN ,RESP PANEL SAMPLE TAKEN AND SENT TO LAB ,PATIENT BELONINGS LIST DONE ,HOSPITALIST IN ROOM TALKING TO PATIENT ,PATIENT IN GOOD SPRITS .
--- NOTE | 2023-04-02 17:03 | PHA.MEDREC ---
Pharmacy Consult ? Medication Reconciliation Pharmacy has completed the medication reconciliation. Patient had list of medications that match claim history. Pamela SosaD
--- NOTE | 2023-04-02 17:15 | P.HPHOSP_ITS ---
History of Present Illness Date of Service: 04/02/23 Chief Complaint: fall, fever An 88-year-old male past medical history of HLD, CVA, history of prostate cancer status post radical prostatectomy, history of eczema, dysphagia,? PVD who comes into the hospital from home after sustaining a fall. The patient reports that he was feeling little weaker recently. he was alone in home and lost balance in his way to the bathroom falling next to his bed and was unable to get up again and spent the whole night on the floor. His family found him in the morning when they came to visit and brought him to the hospital. He denies any LOC, lightheadedness, head injury. In ED found to have hyponatremia of 127 with fever of 100.9 and no other complaints like abd pain,fever, chills, SOB or urinary symptoms. Admitted for further eval Review of Systems Review of Systems: No fever, chills but has new weakness No chest pain, palpitation No shortness of breath or coughing No abdominal pain, nausea or vomiting No urinary symptoms No any rash or wounds PMFSH Medical History COVID-19 virus infection Hypercholesterolemia Hyponatremia Low sodium levels Normocytic anemia Osteoarthritis, shoulder Prostate cancer Venous insufficiency Family History Father Diabetes Surgical History Erectile dysfunction following urethral surgery History of radical prostatectomy Social History Household Members: None Housing: House Do you presently have visiting nurse or other home services: No Alcohol intake: current Alcohol intake frequency: does not drink Patient Tobacco Use Status: Never used Tobacco Smoked in Last 30 Days: No e-Cigarette/Vaping Use: Never Used Second Hand Smoke Exposure: No Use of substances other than those prescribed or required for medical reasons: No Advance Directives: Yes Advance Directives on File: Yes Advance Directives Date on File: 08/24/21 service: No Current occupational status: retired 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, 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 [employer] Cognitive needs: Yes (cane) Hearing needs: No Vision needs: Yes Meds Allergies Allergy/AdvReac Type Severity Reaction Status Date / Time No Known Allergies Allergy Mild N/A Verified 03/28/23 13:50 Active Medications: Current Medications Pharmacy Consult (Consult Rx Perform Med Rec) 1 each MISCELLANE ONCE PRN PRN Reason: Consult order Home Medications Medication Instructions Recorded Confirmed Last Taken Type cholecalciferol (vitamin D3) 25 25 mcg PO DAILY 01/17/21 04/02/23 04/01/23 History mcg (1,000 unit) capsule meloxicam 15 mg tablet 15 mg PO DAILY 04/25/22 04/02/23 04/01/23 History ascorbic acid (vitamin C) 1,000 mg 1,000 mg PO DAILY 02/22/23 04/02/23 04/01/23 History tablet,extended release cyanocobalamin (vitamin B-12) 1,000 mcg PO DAILY 02/22/23 04/02/23 04/01/23 History 1,000 mcg tablet cephalexin 500 mg capsule 500 mg PO TID infectious disease 03/14/23 04/02/23 04/01/23 History Physical Exam Vital Signs and Narrative: Vital Signs: Last Vital Signs Temp 99.4 F 04/02/23 16:00 Pulse 77 04/02/23 16:00 Resp 16 04/02/23 16:00 BP 117/62 04/02/23 16:00 Pulse Ox 98 04/02/23 16:00 O2 Del Method Room Air 04/02/23 16:00 BMI result Body Mass Index 20.8 Const: Other: Constitutional : Awake, interactive, not in distress Neck : Normal inspection, Supple Cardiovascular : RRR, no JVP, trace lower extremity edema Respiratory : good bilateral air entry,? no crackles, wheezes or rhonchi Gastrointestinal:? soft, lax, Normal bowel sounds, Non tender Skin : Warm, Dry Neurological : Alert & oriented x3, No focal deficit Results Labs 04/02/23 13:43 04/02/23 13:43 Labs: Laboratory Results - last 24 hr 04/02/23 04/02/23 04/02/23 13:43 13:43 13:43 MCV 97.1 MCH 32.0 MCHC 32.9 RDW 15.3 Plt Count 276 D MPV 9.0 L Immature Gran % (Auto) 1.5 H Neut % (Auto) 82.9 H Lymph % (Auto) 8.0 L [place] % (Auto) 6.6 Eos % (Auto) 0.6 Baso % (Auto) 0.4 Lymph # (Auto) 1.0 L [place] # (Auto) 0.8 Eos # (Auto) 0.1 Baso # (Auto) 0.1 Abs Immat Gran (auto) 0.19 H Absolute Neuts (auto) 10.6 H Absolute Nucleated RBC 0.000 Nucleated RBC % (auto) 0.0 Anion Gap 9 L Estim Creat Clear Calc 73.4 Estimated GFR > 60 Random Glucose 101 Lactic Acid 1.0 Calcium 9.2 D Magnesium 1.8 Total Bilirubin 0.6 AST 19 ALT 20 Alkaline Phosphatase 80 Total Creatine Kinase 33 L Total Protein 7.1 Albumin 2.9 L Urine Color Urine Appearance Urine pH Ur Specific [place] Urine Protein Urine Glucose (UA) Urine Ketones Urine Blood Urine Nitrite Ur Leukocyte Esterase Urine RBC Urine WBC Ur Squamous Epith Cells Urine Bacteria Hyaline Casts 04/02/23 15:24 MCV MCH MCHC RDW Plt Count MPV Immature Gran % (Auto) Neut % (Auto) Lymph % (Auto) [place] % (Auto) Eos % (Auto) Baso % (Auto) Lymph # (Auto) [place] # (Auto) Eos # (Auto) Baso # (Auto) Abs Immat Gran (auto) Absolute Neuts (auto) Absolute Nucleated RBC Nucleated RBC % (auto) Anion Gap Estim Creat Clear Calc Estimated GFR Random Glucose Lactic Acid Calcium Magnesium Total Bilirubin AST ALT Alkaline Phosphatase Total Creatine Kinase Total Protein Albumin Urine Color Dark Yellow Urine Appearance Clear Urine pH 6.5 Ur Specific [place] 1.020 Urine Protein 100 (2+) H Urine Glucose (UA) Negative Urine Ketones 15 Urine Blood Small (1+) H Urine Nitrite Negative Ur Leukocyte Esterase Trace H Urine RBC >20 H Urine WBC 0-5 Ur Squamous Epith Cells 0-2 Urine Bacteria None Seen Hyaline Casts 0-2 Assessment and Plan (1) Fever: Status: Acute (2) Hyponatremia: Status: Acute (3) Fall: Status: Acute Plan An 88-year-old male past medical history of HLD, CVA, history of prostate cancer status post radical prostatectomy, history of eczema, dysphagia,? PVD who comes into the hospital from home after sustaining a fall. Fall Multifactorial; hyponatremia, possible infection, deconditioning no reported injuries or pain To do PT eval Fever No clear source of infection, could be viral negative UA Pending CXR, respiratory panel Hold on antibiotics and monitor Acute on chronic hyponatremia Na of 127, baseline above 130 Likely from decrease PO intake check urine studies water restriction Monitor BMP HLD Statin DVT PPx Lovenox The patient will need 2 overnight hospital stay for evaluation of fever pending blood cultures, hyponatremia with safe discharge plan Time Spent With Patient Time: Total time managing care of this patient today ____ minutes. Quality Stroke Does the patient have a stroke diagnosis?: No VTE Prior VTE?: No VTE Risk Level:: Medical - moderate - high VTE Device Contraindication: Treatment Not Indicated VTE Drug Contraindication: N/A - Med Ordered
[2023-04-02 17:31] LABS: IDNOW Serial# BCCEAD1C
[2023-04-02 17:32] LABS: COVID-19 Test Negative (Negative)
--- NOTE | 2023-04-02 17:42 | MHC.EDTECH ---
PATIENT ATE 2 VANELLA PUDDING ,DRANK 1 SMALL ORANGE JUICE ,PATIENT WAS ASSISTED UNTO BEDSIDE COMMODE ,HAD LARGE FIRM BOWEL MOVEMENT ,THEN BACK IN BED
--- NOTE | 2023-04-02 18:19 | MHC.EDTECH ---
PATIENT WAS SERVED SUPPER ,MEAT WAS CUT UP IN TO SMALL PIECES .
--- NOTE | 2023-04-02 19:18 | MHC.EDTECH ---
PATIENT WAS ASSISTED ONTO BEDSIDE COMMODE ,PATIENT HAD LARGE AMOUNT OF LOOSE STOOL,ALSO WAS INCONTINENT IN BED ,CARE GIVEN ,BEDDING CHANGE ,BACK BACK IN BED WATCHING TELEVISION .
--- NOTE | 2023-04-02 19:30 | MHC.EDTECH ---
RESP PANEL SAMPLE COLLECTED AND SENT TO LAB ,WARM BLANKETS GIVEN .
[2023-04-02] MEDS: Enoxaparin Sodium 40 MG/0.4 ML SYRINGE SUBCUT (19:45)
--- NOTE | 2023-04-02 20:18 | PC.NURSE ---
[place] [facility] [facility] [place]
[2023-04-02 20:55] LABS: Osmolality, Serum 271 mosm/kg (281-305)
[2023-04-02 21:25] LABS: Osmolality Urine 672 mosm/kg (373-1093)
[2023-04-03] VITALS (10 sets, daily range): BP systolic 123–180; BP diastolic 58–72; PULSE 71–89; RESP 16–20; TEMP 36.6–37.7; O2SAT 94–97
--- NOTE | 2023-04-03 03:19 | PC.NURSE ---
Pt admitted to the unit from ED. A&Ox4, pleasant and cooperative with care. Denies pain or discomfort. No s/sx SOB/Dyspnea. Respiratory panel still pending, Contact/Droplet precautions maintained. Tmax 102.8, PRN Tylenol and ice pack to bilateral axilla and behind the neck with effect. Temp down to 99.2 after an hour. NSR on library monitor. Daughter updated over the phone. Bed in lowest locked position, call valero within reach.
[2023-04-03 08:20] LABS: Alanine Aminotransferase 16 U/L (0-40); Albumin Level 2.5 g/dL (3.5-5.0); Alkaline Phosphatase 71 U/L (39-117); Anion Gap 12 (12-20); Aspartate Amino Transferase 17 U/L (5-37); Bilirubin Total 0.5 mg/dL (0.0-1.0); Blood Urea Nitrogen 12 mg/dL (9-16); Carbon Dioxide 22 mmol/L (22-29); Chloride 98 mmol/L (96-108); Creatinine Clr Calc Pharmacy 78.7; Estimated Glomerular Filt Rate > 60; Glucose Random 102 mg/dL (60-115); Potassium 3.7 mmol/L (3.3-5.1); Sodium 128 mmol/L (135-145)
--- NOTE | 2023-04-03 09:16 | MHC.CM.PN ---
IMM 04/03. Pt admitted with fall, fever. Pt lives alone at home, his daughter Bridget works from home and stays with him Mon-Fri 8am-5pm. Pt uses a walker, and grab bars. Pt is active with [facility] and has been very happy with their services. D/C plan to return home with resumption of [facility]. Pts family will transport. PCP: Bobbi Ellis vax: x 2
[2023-04-03] MEDS: Urea 15 GM POWDER 30 GM PO (10:45)
[2023-04-03] MEDS: 0.9 % Sodium Chloride Flush 3 ML SYRINGE IVFLUSH ×3 (10:45→23:42)
[2023-04-03 11:13] LABS: T4 Thyroxine 5.2 ug/dL (4.5-12.0)
[2023-04-03 11:34] LABS: Adenovirus PCR Not Detected (Not Detect.); Bordetella parapertussis PCR Not Detected (Not Detect.); Bordetella pertussis PCR Not Detected (Not Detect.); Chlamydia pneumoniae PCR Not Detected (Not Detect.); Coronavirus 229E PCR Not Detected (Not Detect.); Coronavirus HKU1 PCR Not Detected (Not Detect.); Coronavirus NL63 PCR Not Detected (Not Detect.); Coronavirus OC43 PCR Not Detected (Not Detect.); Human metapneumovirus PCR Not Detected (Not Detect.); Influenza A PCR Not Detected (Not Detect.); Influenza B PCR Not Detected (Not Detect.); Mycoplasma pneumoniae PCR Not Detected (Not Detect.); Parainfluenza 1 PCR Not Detected (Not Detect.); Parainfluenza 2 PCR Not Detected (Not Detect.); Parainfluenza 3 PCR Not Detected (Not Detect.); Parainfluenza 4 PCR Not Detected (Not Detect.); RSV PCR Not Detected (Not Detect.); Rhino/Enterovirus PCR Not Detected (Not Detect.); SARS-CoV-2 PCR Not Detected (Not Detect.)
--- NOTE | 2023-04-03 16:00 | HO.PM.IMPN ---
Subjective Subjective Date of Service: 04/03/23 Interval History: Seen and evaluated Feels better Sodium still low at 128 No lightheadedness reported Physical Exam Vital Signs: Vital Signs: Last Vital Signs Temp 99.8 F 04/03/23 15:43 Pulse 89 04/03/23 15:43 Resp 18 04/03/23 15:43 BP 123/66 04/03/23 15:43 Pulse Ox 95 04/03/23 15:43 O2 Del Method Room Air 04/03/23 15:43 BMI result Body Mass Index 20.3 Const: Other: Constitutional : Awake, interactive, not in distress Neck : Normal inspection, Supple Cardiovascular : RRR, no JVP, trace lower extremity edema Respiratory : good bilateral air entry,? no crackles, wheezes or rhonchi Gastrointestinal:? soft, lax, Normal bowel sounds, Non tender Skin : Warm, Dry Neurological : Alert & oriented x3, No focal deficit Objective Data Active Medications Acetaminophen (Acetaminophen 325 Mg Tablet) 650 mg PO Q6H PRN PRN Reason: Pain, Mild (Pain Scale 1-3) Last Admin: 04/02/23 23:28 Dose: 650 mg Documented By: SIM Enoxaparin Sodium (Enoxaparin Sodium 40 Mg/0.4 Ml Syringe) 40 mg SUBCUT Q24H [facility] Last Admin: 04/02/23 19:45 Dose: 40 mg Documented By: TEODORA Ondansetron HCl (Ondansetron Hcl 4 Mg/2 Ml Vial) 4 mg IVPUSH Q8H PRN PRN Reason: Nausea and Vomiting Pharmacy Consult (Consult Rx Perform Med Rec) 1 each MISCELLANE ONCE PRN PRN Reason: Consult order Sodium Chloride (0.9 % Sodium Chloride Flush 3 Ml Syringe) 3 ml IVFLUSH QSHIFT [facility] Last Admin: 04/03/23 10:45 Dose: 3 ml Documented By: TALIB Labs 04/02/23 13:43 04/03/23 07:13 Labs: Laboratory Results - last 24 hr 04/02/23 04/02/23 04/02/23 15:24 15:24 15:24 Anion Gap Estim Creat Clear Calc Estimated GFR Random Glucose Osmolality 271 L Calcium Total Bilirubin AST ALT Alkaline Phosphatase Total Protein Albumin TSH Thyroxine (T4) Urine Osmolality 672 Ur Random Sodium 159.0 Respiratory Panel [place] Adenovirus (Rapid PCR) B.pert (TEM-PCR) B.parapertussis DNA PCR C. pneumoniae DNA (PCR) Coronavirus OC43 (PCR) Coronavirus HKU1 (PCR) Coronavirus 229E (PCR) COVID-19 (KARIAN) COVID-19 Clin Com Coronavirus NL63 (PCR) Human Metapneumovir PCR Influenza A (RT-PCR) Influenza B (RT-PCR) M. pneumoniae (PCR) Parainfluenza 1 (PCR) Parainfluenza 2 (PCR) Parainfluenza 3 (PCR) Parainfluenza 4 (PCR) RSV (PCR) Entero/Rhino (PCR) SARS-CoV-2 RNA (RT-PCR) 04/02/23 04/02/23 04/03/23 16:24 16:24 07:13 Anion Gap 12 Estim Creat Clear Calc 78.7 Estimated GFR > 60 Random Glucose 102 Osmolality Calcium 9.0 Total Bilirubin 0.5 AST 17 ALT 16 Alkaline Phosphatase 71 Total Protein 6.0 L Albumin 2.5 L TSH 0.90 Thyroxine (T4) 5.2 Urine Osmolality Ur Random Sodium Respiratory Panel [place] See Note Adenovirus (Rapid PCR) Not Detected B.pert (TEM-PCR) Not Detected B.parapertussis DNA PCR Not Detected C. pneumoniae DNA (PCR) Not Detected Coronavirus OC43 (PCR) Not Detected Coronavirus HKU1 (PCR) Not Detected Coronavirus 229E (PCR) Not Detected COVID-19 (KARINA) Negative COVID-19 Clin Com See Note Coronavirus NL63 (PCR) Not Detected Human Metapneumovir PCR Not Detected Influenza A (RT-PCR) Not Detected Influenza B (RT-PCR) Not Detected M. pneumoniae (PCR) Not Detected Parainfluenza 1 (PCR) Not Detected Parainfluenza 2 (PCR) Not Detected Parainfluenza 3 (PCR) Not Detected Parainfluenza 4 (PCR) Not Detected RSV (PCR) Not Detected Entero/Rhino (PCR) Not Detected SARS-CoV-2 RNA (RT-PCR) Not Detected Assessment and Plan (1) Fall: Status: Acute (2) Fever: Status: Acute (3) Hyponatremia: Status: Acute Plan An 88-year-old male past medical history of HLD, CVA, history of prostate cancer status post radical prostatectomy, history of eczema, dysphagia,? PVD who comes into the hospital from home after sustaining a fall. 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 Quality Stroke Does the patient have a stroke diagnosis?: No VTE Prior VTE?: No VTE Risk Level:: Medical - moderate - high VTE Device Contraindication: Treatment Not Indicated VTE Drug Contraindication: N/A - Med Ordered
[2023-04-03] MEDS: Enoxaparin Sodium 40 MG/0.4 ML SYRINGE SUBCUT (16:26)
[2023-04-03] MEDS: cefTRIAXone sodium 1 GM in 0.9 % Sodium Chloride 50 ML IV (16:26)
[2023-04-03 16:39] LABS: Anion Gap 10 (12-20); Calcium 9.3 mg/dL (8.4-10.2); Carbon Dioxide 23 mmol/L (22-29); Chloride 97 mmol/L (96-108); Creatinine Clr Calc Pharmacy 71.6; Estimated Glomerular Filt Rate > 60; Glucose Random 111 mg/dL (60-115); Potassium 3.3 mmol/L (3.3-5.1); Sodium 127 mmol/L (135-145)
[2023-04-03 17:22] LABS: Blood Urea Nitrogen 41 mg/dL (9-16)
[2023-04-04] MEDS: guaiFENesin DM 100/10/5 ML 5 ML SYRUP PO (01:52)
[2023-04-04 02:57] VITALS: BP 137/56; PULSE 78; RESP 18; TEMP 37; O2SAT 97
[2023-04-04 07:27] VITALS: BP 141/76; PULSE 73; RESP 20; TEMP 36.8; O2SAT 95
[2023-04-04 08:19] LABS: Hematocrit 30.8 % (42.0-52.0); Hemoglobin 10.3 g/dl (14.0-18.0); Mean Corpuscular HGB Conc 33.4 g/dl (31.0-36.0); Mean Corpuscular Hemoglobin 31.4 pg (27.0-33.0); Mean Corpuscular Volume 93.9 fL (80.0-98.0); Mean Platelet Volume 8.6 fL (9.4-12.4); Platelet Count 277 X10*3/uL (160-400); Red Blood Count 3.28 X10*6/uL (4.60-5.80); Red Cell Distribution Width 14.8 % (11.0-16.0); White Blood Count 14.2 X10*3/uL (4.8-10.8)
[2023-04-04 08:36] LABS: Anion Gap 12 (12-20); Blood Urea Nitrogen 14 mg/dL (9-16); Carbon Dioxide 24 mmol/L (22-29); Chloride 97 mmol/L (96-108); Creatinine Clr Calc Pharmacy 85.9; Estimated Glomerular Filt Rate > 60; Glucose Random 97 mg/dL (60-115); Potassium 3.4 mmol/L (3.3-5.1); Sodium 130 mmol/L (135-145)
[2023-04-04 08:53] LABS: Cortisol Random 6.6 ug/dL
[2023-04-04] MEDS: Aspirin Enteric Coated 81 MG TABLET.DR PO (08:57)
[2023-04-04] MEDS: Cyanocobalamin (Vitamin B-12) 1,000 MCG TABLET 1000 MCG PO (08:57)
[2023-04-04] MEDS: Atorvastatin Calcium 80 MG TABLET PO (08:57)
[2023-04-04] MEDS: Cholecalciferol (Vitamin D3) 25 MCG TABLET PO (08:57)
[2023-04-04] MEDS: Sertraline HCL 25 MG TABLET PO (08:57)
[2023-04-04] MEDS: 0.9 % Sodium Chloride Flush 3 ML SYRINGE IVFLUSH ×2 (08:58→20:43)
--- NOTE | 2023-04-04 10:55 | HO.PM.IMPN ---
Subjective Subjective Date of Service: 04/04/23 Interval History: Seen and evaluated Feels better Sodium improved to 130 No lightheadedness reported Review of Systems No fever, chills but has new weakness No chest pain, palpitation No shortness of breath or coughing No abdominal pain, nausea or vomiting No urinary symptoms No any rash or wounds Physical Exam Vital Signs: Vital Signs: Last Vital Signs Temp 98.3 F 04/04/23 07:27 Pulse 73 04/04/23 07:27 Resp 20 04/04/23 07:27 BP 141/76 H 04/04/23 07:27 Pulse Ox 95 04/04/23 07:27 O2 Del Method Room Air 04/04/23 07:27 BMI result Body Mass Index 20.3 Const: Other: Constitutional : Awake, interactive, not in distress Neck : Normal inspection, Supple Cardiovascular : RRR, no JVP, trace lower extremity edema Respiratory : good bilateral air entry,? no crackles, wheezes or rhonchi Gastrointestinal:? soft, lax, Normal bowel sounds, Non tender Skin : Warm, Dry Neurological : Alert & oriented x3, No focal deficit Objective Data Active Medications Acetaminophen (Acetaminophen 325 Mg Tablet) 650 mg PO Q6H PRN PRN Reason: Pain, Mild (Pain Scale 1-3) Last Admin: 04/02/23 23:28 Dose: 650 mg Documented By: SIM Aspirin (Aspirin Enteric Coated 81 Mg Tablet.) 81 mg PO DAILY [facility] Last Admin: 04/04/23 08:57 Dose: 81 mg Documented By: TALIB Atorvastatin Calcium (Atorvastatin Calcium 80 Mg Tablet) 80 mg PO DAILY [facility] Last Admin: 04/04/23 08:57 Dose: 80 mg Documented By: TALIB Cyanocobalamin (Cyanocobalamin (Vitamin B-12) 1,000 Mcg Tablet) 1,000 mcg PO DAILY [facility] Last Admin: 04/04/23 08:57 Dose: 1,000 mcg Documented By: TALIB Enoxaparin Sodium (Enoxaparin Sodium 40 Mg/0.4 Ml Syringe) 40 mg SUBCUT Q24H [facility] Last Admin: 04/03/23 16:26 Dose: 40 mg Documented By: TALIB Guaifenesin/Dextromethorphan (Guaifenesin Dm 100/10/5 Ml 5 Ml Syrup) 5 ml PO Q4H PRN PRN Reason: cough Last Admin: 04/04/23 01:52 Dose: 5 ml Documented By: SIM Ceftriaxone Sodium 1 gm/ (Sodium Chloride) 50 mls @ 100 mls/hr IV Q24H [facility] Last Infusion: 04/03/23 17:29 Dose: 0 mls/hr Documented By: TALIB Ondansetron HCl (Ondansetron Hcl 4 Mg/2 Ml Vial) 4 mg IVPUSH Q8H PRN PRN Reason: Nausea and Vomiting Pharmacy Consult (Consult Rx Perform Med Rec) 1 each MISCELLANE ONCE PRN PRN Reason: Consult order Sertraline HCl (Sertraline Hcl 25 Mg Tablet) 25 mg PO DAILY [facility] Last Admin: 04/04/23 08:57 Dose: 25 mg Documented By: TALIB Sodium Chloride (0.9 % Sodium Chloride Flush 3 Ml Syringe) 3 ml IVFLUSH QSHIFT [facility] Last Admin: 04/04/23 08:58 Dose: 3 ml Documented By: TALIB Vitamin D (Cholecalciferol (Vitamin D3) 25 Mcg Tablet) 25 mcg PO DAILY [facility] Last Admin: 04/04/23 08:57 Dose: 25 mcg Documented By: TALIB Labs 04/04/23 07:42 04/04/23 07:42 Labs: Laboratory Results - last 24 hr 04/02/23 04/03/23 04/03/23 16:24 07:13 15:33 MCV MCH MCHC RDW Plt Count MPV Absolute Nucleated RBC Nucleated RBC % (auto) Anion Gap 10 L Estim Creat Clear Calc 71.6 Estimated GFR > 60 Random Glucose 111 Calcium 9.3 TSH 0.90 Thyroxine (T4) 5.2 Random Cortisol Respiratory Panel [place] See Note Adenovirus (Rapid PCR) Not Detected B.pert (TEM-PCR) Not Detected B.parapertussis DNA PCR Not Detected C. pneumoniae DNA (PCR) Not Detected Coronavirus OC43 (PCR) Not Detected Coronavirus HKU1 (PCR) Not Detected Coronavirus 229E (PCR) Not Detected Coronavirus NL63 (PCR) Not Detected Human Metapneumovir PCR Not Detected Influenza A (RT-PCR) Not Detected Influenza B (RT-PCR) Not Detected M. pneumoniae (PCR) Not Detected Parainfluenza 1 (PCR) Not Detected Parainfluenza 2 (PCR) Not Detected Parainfluenza 3 (PCR) Not Detected Parainfluenza 4 (PCR) Not Detected RSV (PCR) Not Detected Entero/Rhino (PCR) Not Detected SARS-CoV-2 RNA (RT-PCR) Not Detected 04/04/23 04/04/23 04/04/23 07:42 07:42 07:42 MCV 93.9 MCH 31.4 MCHC 33.4 RDW 14.8 Plt Count 277 MPV 8.6 L Absolute Nucleated RBC 0.000 Nucleated RBC % (auto) 0.0 Anion Gap 12 Estim Creat Clear Calc 85.9 Estimated GFR > 60 Random Glucose 97 Calcium 9.0 TSH Thyroxine (T4) Random Cortisol 6.6 Respiratory Panel [place] Adenovirus (Rapid PCR) B.pert (TEM-PCR) B.parapertussis DNA PCR C. pneumoniae DNA (PCR) Coronavirus OC43 (PCR) Coronavirus HKU1 (PCR) Coronavirus 229E (PCR) Coronavirus NL63 (PCR) Human Metapneumovir PCR Influenza A (RT-PCR) Influenza B (RT-PCR) M. pneumoniae (PCR) Parainfluenza 1 (PCR) Parainfluenza 2 (PCR) Parainfluenza 3 (PCR) Parainfluenza 4 (PCR) RSV (PCR) Entero/Rhino (PCR) SARS-CoV-2 RNA (RT-PCR) Microbiology Microbiology Results: Microbiology 04/02/23 14:10 Blood Culture - Preliminary Blood - Venous No growth after 24 hours. 04/02/23 13:45 Blood Culture - Preliminary Blood - Venous No growth after 24 hours. Assessment and Plan (1) Fall: Status: Acute (2) Hyponatremia: Status: Acute (3) Physical deconditioning: Status: Acute Plan An 88-year-old male past medical history of HLD, CVA, history of prostate cancer status post radical prostatectomy, history of eczema, dysphagia,? PVD who comes into the hospital from home after sustaining a fall. 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 Quality Stroke Does the patient have a stroke diagnosis?: No VTE Prior VTE?: No VTE Risk Level:: Medical - moderate - high VTE Device Contraindication: Treatment Not Indicated VTE Drug Contraindication: N/A - Med Ordered
[2023-04-04 11:22] VITALS: BP 100/55; PULSE 70; RESP 20; TEMP 37.1; O2SAT 95
[2023-04-04] MEDS: Urea 15 GM POWDER 30 GM PO (12:00)
[2023-04-04] MEDS: Acetaminophen 325 MG TABLET 650 MG PO (13:40)
[2023-04-04 15:15] VITALS: BP 111/55; PULSE 76; RESP 14; TEMP 36; O2SAT 96
--- NOTE | 2023-04-04 15:23 | MHC.CM.PN ---
EMR reviewed and per MD rounds, pt not medically cleared for D/C today. This CM spoke with daughter Bridget who is concerned with patients multiple falls and would like him to go to [facility]. MD and PT updated, PT revaluated and rec given for [facility]. [facility] offered bed and pt accepted. Mimi Gill updated. Bridget also sent copy of HCP, now on file. Pt to D/C to [facility] [address] tomorrow. Transportation booked via [facility] at 11am on 04/05.
[2023-04-04] MEDS: Enoxaparin Sodium 40 MG/0.4 ML SYRINGE SUBCUT (16:39)
[2023-04-04] MEDS: cefTRIAXone sodium 1 GM in 0.9 % Sodium Chloride 50 ML IV (16:39)
[2023-04-04 18:54] VITALS: BP 109/64; PULSE 84; RESP 14; TEMP 36.4; O2SAT 95
--- NOTE | 2023-04-04 19:30 | PC.NURSE ---
Assumed care of patient at this time.
[2023-04-04 23:43] VITALS: BP 148/78; PULSE 74; RESP 17; TEMP 36.4; O2SAT 94
[2023-04-05 03:03] VITALS: BP 135/70; PULSE 71; RESP 17; TEMP 36.4; O2SAT 95
[2023-04-05 07:37] LABS: Anion Gap 14 (12-20); Blood Urea Nitrogen 19 mg/dL (9-16); Calcium 9.5 mg/dL (8.4-10.2); Carbon Dioxide 23 mmol/L (22-29); Chloride 99 mmol/L (96-108); Creatinine Clr Calc Pharmacy 72.7; Estimated Glomerular Filt Rate > 60; Glucose Random 97 mg/dL (60-115); Potassium 3.7 mmol/L (3.3-5.1); Sodium 132 mmol/L (135-145)
[2023-04-05 07:40] LABS: Uric Acid 1.6 mg/dL (3.4-7.0)
[2023-04-05 07:52] VITALS: BP 117/65; PULSE 75; RESP 12; TEMP 37; O2SAT 98
[2023-04-05] MEDS: Aspirin Enteric Coated 81 MG TABLET.DR PO (09:06)
[2023-04-05] MEDS: Cyanocobalamin (Vitamin B-12) 1,000 MCG TABLET 1000 MCG PO (09:06)
[2023-04-05] MEDS: Sertraline HCL 25 MG TABLET PO (09:06)
[2023-04-05] MEDS: Cholecalciferol (Vitamin D3) 25 MCG TABLET PO (09:06)
[2023-04-05] MEDS: Atorvastatin Calcium 80 MG TABLET PO (09:06)
[2023-04-05] MEDS: 0.9 % Sodium Chloride Flush 3 ML SYRINGE IVFLUSH (09:06)
--- NOTE | 2023-04-05 10:45 | PM.DS ---
DS: Providers Provider Date of Service: 04/05/23 Date of admission: 04/02/23 17:11 Primary care physician: Bobbi Harris MD Consults: 04/04/23 07:57 Consult to Nephrology Routine Consulting Provider: Dean Ayon Reason for consultation: Acute on chronic hyponatremia DS: Diagnosis Discharge Diagnosis (1) Fall: Status: Acute (2) Hyponatremia: Status: Acute (3) Physical deconditioning: Status: Acute (4) Fever: Status: Acute DS: Summary Hospital Course Hospital Course: Admission note HPI An 88-year-old male past medical history of HLD, CVA, history of prostate cancer status post radical prostatectomy, history of eczema, dysphagia,? PVD who comes into the hospital from home after sustaining a fall. The patient reports that he was feeling little weaker recently. he was alone in home and lost balance in his way to the bathroom falling next to his bed and was unable to get up again and spent the whole night on the floor. His family found him in the morning when they came to visit and brought him to the hospital. He denies any LOC, lightheadedness, head injury. In ED found to have hyponatremia of 127 with fever of 100.9 and no other complaints like abd pain,fever, chills, SOB or urinary symptoms. Admitted for further eval. Hospital course The patient was admitted to the hospital for evaluated of fall. Mechanical in nature with no head injury or fractures. related to low sodium level and physical deconditioning. evaluated by PT and will be placed at rehab facility for therapy. Hyponatremia of 127 on admission. Urine studies suggestive of SIADH. treated with water restriction and Urea poweder with good response with sodium improving to 132 at day of discharge which is close to his baseline. evaluated by nephrology who will follow as outpatient. to repeat blood work next week. Spiked fever with no clear underlying infection. covered with empirical Ceftriaxone with resolution of fever. could be viral illness. to finish total of 5 days of antibiotics as outpatient. Has chronic urine incontinence problem. feels uncomfortable about. advised to pass urine regularly every 2-3 hour, wear a diaper or have a [place] placed while in rehab facility. Cut down water intake Continue antibiotics as prescribed Continue Urea as prescribed To follow with blood test next week Time Spent with Patient Time attestation: Total time managing care of this patient today ____ minutes. Discharge coordination time: Greater than 30 minutes Quality: Safe Use of Opioids Does Pt have an Active Cancer Diagnosis on the Problem List?: No Quality: Stroke Does the patient have a stroke diagnosis?: No Physical Exam Vital Signs: Vital Signs: Last Vital Signs Temp 98.6 F 04/05/23 07:52 Pulse 75 04/05/23 07:52 Resp 12 04/05/23 07:52 BP 117/65 04/05/23 07:52 Pulse Ox 98 04/05/23 07:52 O2 Del Method Room Air 04/05/23 07:52 BMI result Body Mass Index 20.3 Const: Other: Constitutional : Awake, interactive, not in distress Neck : Normal inspection, Supple Cardiovascular : RRR, no JVP, trace lower extremity edema Respiratory : good bilateral air entry,? no crackles, wheezes or rhonchi Gastrointestinal:? soft, lax, Normal bowel sounds, Non tender Skin : Warm, Dry, RLE chronic wound, clean, covered with dressing Neurological : Alert & oriented x3, No focal deficit DS: Data Data Completed and Pending Labs on day of discharge: Laboratory Results - last 24 hr 04/05/23 04/05/23 07:04 07:04 Sodium 132 L Potassium 3.7 Chloride 99 Carbon Dioxide 23 Anion Gap 14 BUN 19 H Creatinine 0.65 Estim Creat Clear Calc 72.7 Estimated GFR > 60 Random Glucose 97 Uric Acid 1.6 L Calcium 9.5 Preliminary micro results at discharge 04/02/23 14:10 Blood Culture - Preliminary Blood - Venous No growth after 48 hours. 04/02/23 13:45 Blood Culture - Preliminary Blood - Venous No growth after 48 hours. Imaging Chest x-ray: Radiologist's impression: ITS Impressions Chest X-Ray 04/02/23 17:25 IMPRESSION: Redemonstration of bilateral calcified pleural plaques without distinct new focal airspace opacity. No pleural effusion or pneumothorax. Correlation with CT chest could be obtained as clinically indicated. Discharge Plan Discharge Anticipated Discharge Date/Time: 04/05/23 10:33 Patient Disposition: Xfer SNF Discharge Diagnosis: Fall Hyponatremia Referrals: Po,Bobbi Fitzgerald MD [Primary Care Provider] - 1 Week Discharge Medications: New cefuroxime axetil 500 mg tablet 500 mg PO BID Qty: 7 0RF urea (bulk) 100 % Powder 15 ea PO DAILY 30 Days Qty: 1000 0RF Continued aspirin [Adult Low Dose Aspirin] 81 mg tablet,delayed release (DR/EC) 81 mg PO DAILY Qty: 14 0RF sertraline 50 mg tablet 25 mg PO DAILY 90 Days Qty: 45 1RF rosuvastatin 40 mg tablet 40 mg PO DAILY Qty: 30 3RF cyanocobalamin (vitamin B-12) 1,000 mcg Tablet 1,000 mcg PO DAILY ascorbic acid (vitamin C) 1,000 mg tablet extended release 1,000 mg PO DAILY cholecalciferol (vitamin D3) 25 mcg (1,000 unit) capsule 25 mcg PO DAILY (DME) comp.stocking,knee,long,medium Misc See Rx Instructions .Route Qty: 2 0RF Rx Instructions: As directed meloxicam 15 mg tablet 15 mg PO DAILY Culturelle 10 billion cell capsule 1 cap PO DAILY Qty: 30 0RF Citrucel 500 mg tablet 500 mg PO DAILY Qty: 90 2RF Rx Instructions: take it with full glass of water Discontinued cephalexin 500 mg capsule 500 mg PO TID Discharge Orders: Discharge Order (Routine); Ordered 04/05/23 Ordered By: Shelia Strange Diet: Advance to usual diet Activity on Discharge: As tolerated Stand Alone Forms: Patient Portal Discharge page Other Ambulatory Orders: Basic Metabolic Panel (Routine) Timeframe: 5 Days Facility: [facility] - Location: Laboratory Ordered By: Shelia Strange Care Plan Goals: Read below Health Concerns: Read below Plan of Treatment: Read below Assessment: You were admitted for evaluation of fall. Noticed to have low sodium levels treated with Urea powder as you were evaluated by kidney specialist with improvement of you sodium levels. Concern over possible infection treated with Ceftriaxone. Cut down water intake Continue antibiotics as prescribed Continue Urea as prescribed To follow with blood test next week
[2023-04-05] MEDS: Urea 15 GM POWDER PO (11:00)
--- NOTE | 2023-04-05 11:05 | MHC.CM.PN ---
MD order for D/C to rehab. D/C Summary sent to Center via [employer], along with message confirming D/C time of 11:00am today.
--- NOTE | 2023-04-07 07:52 | CONS_ITS ---
DATE OF SERVICE: 04/04/2023 REASON FOR CONSULTATION: I was asked to see the patient to assist in evaluation and management of patient's hyponatremia as reflected by serum sodium that has been as low as 127 during this hospitalization. Reviewing his record, he has had chronic hyponatremia in the past treated, with serum sodium in the 127 to 132 range. HISTORY OF PRESENT ILLNESS: In summary, the patient is an 88-year-old gentleman with a history of hyperlipidemia, stroke, prostate cancer, and dysphagia, who presents to the hospital after a falling episode. Apparently, patient lost his balance and fell. Patient is a poor historian. As far as the evaluation in the emergency room, he had hyponatremia, serum sodium 127, and fever 100.9. We were asked to see him about his hyponatremia. PAST MEDICAL HISTORY: As noted above. MEDICATIONS: His medications on admission are noted and includes meloxicam, vitamin B12, vitamin C, vitamin D, and apparently was on cephalexin. CURRENT MEDICATIONS: On the NOV. SOCIAL HISTORY: He is a nonsmoker, nondrinker. No illicit drug use. FAMILY HISTORY: Noncontributory. REVIEW OF SYSTEMS: As noted above. ALLERGIES: HE HAS NO KNOWN DRUG ALLERGIES. PHYSICAL EXAMINATION: VITAL SIGNS: Blood pressure of 112/60 with a heart rate in the 70s. Afebrile now. HEENT: Head is atraumatic and normocephalic. Mucous membranes are dry. There is no JVD. LUNGS: Breath sounds bilaterally. CARDIAC: Regular rate and rhythm. ABDOMEN: Soft, nontender. Good bowel sounds. No CVA tenderness. EXTREMITIES: Show no edema. LABORATORY DATA: Today show sodium 130, potassium 3.4, chloride 97, bicarb 24, BUN 14, creatinine of 0.55. There is a TSH of 0.9, and a random cortisol level of 6.6. Reviewing his serum sodium as mentioned in the range of 127 to 132. There is no serum uric acid. He has had urine studies done which showed a urine osmolality of 672, urine sodium of 159. Back in February, he had urine studies done which showed a urine sodium less than 20 and urine osmo 454. 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 In reviewing patient's labs, he has had a mixed picture in the past. His most recent urine studies would go along with SIADH with inappropriately high urine sodium, urine osm in the face of hyponatremia. The good news is that his serum sodium seems improved without any specific treatment other than avoiding excessive fluid intake. He is on Zoloft, which can be associated with SIADH. Additionally, I am concerned about low solute intake as a contributing role for his hyponatremia. RECOMMENDATIONS: At this time, include continue to track his serum sodium. If it goes down again, then would place him on urea. We will check his serum uric acid level. Further evaluation and treatment depending on what his repeat serum sodium is. MD GORGE Apple/NALLELY / [phone]
== END 2023-04-05 12:08 | disposition skilled nursing facility (03) | DRG 645 ==
LOC: HO.ED 16:56 → HO.EDOVER 17:22 → HO.IMC 19:20
PROVIDERS: Internal Medicine Nephrology; Admitting Provider Student in an Organized Health Care Education/Training Program; Emergency Provider Internal Medicine; PCP Internal Medicine; Visit Provider Student in an Organized Health Care Education/Training Program
DX: E22.2 Syndrome of inappropriate secretion of antidiuretic hormone (principal); R32 Unspecified urinary incontinence; E78.5 Hyperlipidemia, unspecified; B34.9 Viral infection, unspecified; Z20.822 Contact with and (suspected) exposure to COVID-19; Z86.73 Personal history of transient ischemic attack (TIA), and cerebral infarction without residual deficits; Z85.46 Personal history of malignant neoplasm of prostate; Z90.79 Acquired absence of other genital organ(s); Z79.82 Long term (current) use of aspirin; Z79.899 Other long term (current) drug therapy
CPT/HCPCS: 36415; 71045; 80048; 80053; 81001; 82533; 82550; 83605; 83735; 83930; 83935; 84300; 84436; 84443; 84550; 85025; 85027; 87040; 87633; 87635; 97161; 99285; J0696; J1650

== ENCOUNTER → 2023-04-02 17:11 | Outpatient (BNV) | payer MEDICARE, SELFPAY | PROVIDERS: Admitting Provider Student in an Organized Health Care Education/Training Program; Emergency Provider Internal Medicine; PCP Internal Medicine; Visit Provider Student in an Organized Health Care Education/Training Program | DX: E87.1 Hypo-osmolality and hyponatremia (principal); W19.XXXA Unspecified fall, initial encounter; R53.81 Other malaise; R50.9 Fever, unspecified | CPT/HCPCS: 99223; 99232; 99233; 99239 ==

== ENCOUNTER 2023-04-23 14:09 | Outpatient (AMB) | payer MEDICARE, SELFPAY ==
--- NOTE | 2023-04-23 14:20 | MHC.OFFVIS ---
Intake Vital Signs 04/23/23 14:25 Height 5 ft 10 in Weight 131 lb BMI 18.8 BP 106/52 L Blood Pressure Location Lt brachial Position Sitting Pulse 76 Intake Visit Reasons: 4W Follow up Intake Note: Sukhwinder presents in office as a est.patient for a 4wk f/u PT CC: pt reports having constipation pt denies any other GI Issues Press Puller Required: No Accompanied by: Self / Same As Patient Allergies No Known Allergies Allergy (Mild, Verified 05/01/23 13:41) N/A HPI 4W Follow up HPI Details LAST VISIT (1) Diarrhea: ?Code(s): R19.7 - Diarrhea, unspecified ?Qualifiers: ?Diarrhea type:?unspecified type? Qualified Code(s):?R19.7 - Diarrhea, unspecified (2) Decreased appetite: ?Code(s): R63.0 - Anorexia (3) Melena: ?Code(s): K92.1 - Melena (4) Weight loss: ?Code(s): R63.4 - Abnormal weight loss Plan Will order GI panel, PCP ordered C diff. patient will take probiotic once a day.? He will try to take Citrucel to help bulk his stool.? Will check vitamin-D level, thyroid.? Patient was encouraged to go and get his blood work done today.? Pending blood work ordered by his PCP: CBC, CMP, BNP. ? I will see him in 4 weeks, sooner on as needed basis.? Patient is agreeable to plan of care and verbalizes understanding of instructions.? He was given the opportunity to ask questions and all questions answered. TODAY'S VISIT: Patient is here today for follow-up. Patient stated he is taking Citrucel every day and now he feels like he is constipated. As we discussed patient condition and reviewing patient's records patient admits that he has been seen by the GI specialty in the past. Patient followed up with Dr. Melgar in the past and would like to continue with him. [facility] Medical History COVID-19 virus infection Hypercholesterolemia Hyponatremia Low sodium levels Normocytic anemia Osteoarthritis, shoulder Prostate cancer Venous insufficiency Surgical History Erectile dysfunction following urethral surgery History of radical prostatectomy Family History Father Diabetes Social History Household Members: Children Household Members Other:: daughter Housing: House Do you presently have visiting nurse or other home services: Yes ([facility]) Alcohol intake: current Alcohol intake frequency: does not drink Patient Tobacco Use Status: Never used Tobacco e-Cigarette/Vaping Use: Never Used Second Hand Smoke Exposure: No Advance Directives Date on File: 08/24/21 service: No Current occupational status: retired 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, 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 [employer] Cognitive needs: Yes (cane) Hearing needs: No Vision needs: Yes Review of Systems Const Denies weight gain and Denies weight loss ENT Reports no additional complaints, Denies dysphagia and Denies odynophagia Card Reports no additional complaints Resp Reports no additional complaints GI Denies abdominal pain, Denies belching, Denies melena, Denies bloating, Reports constipation, Denies dysphagia, Denies excessive flatus, Denies dyspepsia, Denies heartburn, Denies diarrhea, Denies loose stools, Denies nausea, Denies odynophagia and Denies vomiting Reports no additional complaints Musc Reports no additional complaints Neuro Reports no additional complaints Psych Reports no additional complaints Endo Reports no additional complaints Physical Exam Vital Signs: Last Vital Signs Pulse 76 04/23/23 14:25 BP 106/52 L 04/23/23 14:25 BMI result Body Mass Index 18.8 Const General: healthy appearing, no acute distress and well developed Nutritional Appearance: underweight Orientation/consciousness: patient oriented x3 HEENT Head: Yes normal to inspection, Yes normocephalic and Yes atraumatic Face and sinus: Yes normal facial exam Mouth: Normal oral and palatal mucosa present Throat: Yes posterior oropharynx normal, Yes tonsils normal and Yes uvula midline Eyes General: appearance normal, both eyes and all related structures Neck Neck: Yes normal visual inspection, Yes full ROM and Yes trachea midline Thyroid: Thyroid normal Resp Effort & Inspection: normal respiratory effort, able to speak in complete sentences, no tracheal deviation and symmetric chest movement Auscultation: clear to auscultation bilaterally Cardio Rate: regular rate Heart sounds: S1 normal heart sound present and S2 normal heart sound present GI Inspection: Yes normal to inspection and No distended Palpation (GI): Soft to palpation, not firm, nontender and No hepatosplenomegaly present Auscultation: normal bowel sounds General: Yes no CVA tenderness Back/Spine/Pelvis Back: no CVA tenderness Skin General skin exam: elasticity normal, turgor normal and dry skin Neuro General: patient oriented x3 Psych Appearance: grossly normal Mental Status: mental status grossly normal Speech and movement: Normal speech and movement present Assessment & Plan Assessment & Plan (1) Constipation: Code(s): K59.00 - Constipation, unspecified Qualifiers: Constipation type: slow transit constipation Qualified Code(s): K59.01 - Slow transit constipation Plan: Patient will start taking MiraLax. Patient was encouraged to increase fluid intake and activity to from a better bowel motility. 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 Melgar. He is agreeable to this plan and verbalizes understanding of instructions. He was given the opportunity to ask questions and all questions answered. Thank you for allowing me to participate in his care Medications: New polyethylene glycol 3350 (Miralax) 17 grams PO DAILY 510 grams 2RF Lactobacillus rhamnosus GG (Culturelle) 1 cap PO DAILY 90 caps 2RF Discontinued ascorbic acid (vitamin C) ER 1,000 mg PO Q12H 30 tabs 0RF Coding Level of Care Code Est Pt Level 3 (46534) Diagnoses Constipation K59.01 Constipation type: slow transit constipation Time Spent (min) 25 Comment 15 minutes spent with patient and additional 10 minutes spent reviewing his records
[2023-04-23 14:25] VITALS: BP 106/52; PULSE 76; BMI 18.8
== END 2023-04-23 14:45 | disposition home or self-care (01) ==
PROVIDERS: PCP Internal Medicine; Visit Provider Nurse Practitioner Family
DX: K59.01 Slow transit constipation (principal)
CPT/HCPCS: 99213

== ENCOUNTER → 2023-04-23 14:09 | Outpatient (BNVA) | payer MEDICARE, SELFPAY | PROVIDERS: PCP Internal Medicine; Visit Provider Nurse Practitioner Family | DX: K59.01 Slow transit constipation (principal) | CPT/HCPCS: 99212 ==

== ENCOUNTER 2023-04-24 08:34 | Outpatient (REF) | payer MEDICARE, SELFPAY ==
[2023-04-24 12:31] LABS: Alanine Aminotransferase 16 U/L (0-40); Alkaline Phosphatase 86 U/L (39-117); Anion Gap 13 (12-20); Aspartate Amino Transferase 25 U/L (5-37); Bilirubin Total 0.4 mg/dL (0.0-1.0); Blood Urea Nitrogen 14 mg/dL (9-16); Carbon Dioxide 22 mmol/L (22-29); Chloride 105 mmol/L (96-108); Estimated Glomerular Filt Rate > 60; Glucose Random 95 mg/dL (60-115); Potassium 4.8 mmol/L (3.3-5.1); Sodium 135 mmol/L (135-145)
== END 2023-04-24 08:35 | disposition home or self-care (01) ==
LOC: HO.HMGCLNP 08:34
PROVIDERS: PCP Internal Medicine; Visit Provider Internal Medicine
DX: I63.9 Cerebral infarction, unspecified (principal); E87.1 Hypo-osmolality and hyponatremia; G93.41 Metabolic encephalopathy
CPT/HCPCS: 80053

== ENCOUNTER 2023-04-29 11:28 | Outpatient (AMB) | payer MEDICARE, SELFPAY ==
[2023-04-29 11:31] VITALS: BP 122/70; PULSE 78; O2SAT 97
--- NOTE | 2023-04-29 11:31 | MHC.PC.OV ---
Vital Signs 04/29/23 11:31 Height 5 ft 10 in BP 122/70 Blood Pressure Location Lt brachial Position Sitting Pulse 78 Pulse Oximetry (%) 97 Oxygen Delivery Method Room Air Intake Visit Reasons: swollen feet Allergies No Known Allergies Allergy (Mild, Verified 04/29/23 12:30) N/A Medication List - Last Reconciled 04/29/23 by TYLER Kessler ascorbic acid (vitamin C) ER 1,000 mg PO DAILY aspirin (Adult Low Dose Aspirin) 81 mg PO DAILY cholecalciferol (vitamin D3) 25 mcg PO DAILY comp.stocking,knee,long,medium As directed cyanocobalamin (vitamin B-12) 1,000 mcg PO DAILY Lactobacillus rhamnosus GG (Culturelle) 1 cap PO DAILY meloxicam 15 mg PO DAILY methylcellulose (laxative) (Citrucel) 500 mg PO DAILY polyethylene glycol 3350 (Miralax) 17 grams PO DAILY rosuvastatin 40 mg PO DAILY sertraline 25 mg (1/2 x 50 mg) PO DAILY 90 days urea (bulk) 100% 15 ea PO DAILY 30 days Tobacco use date assessed: 03/14/23 Fall risk assessment: No Falls in past year Last assessed Fall Risk: 04/29/23 Dental Screening Dental Screen Date: 04/29/23 Did you have a dental visit in the last 12 months?: Yes Did you have a dental problem in the last 6 months where you did not have access to dental care?: No Was dental information given to patient?: Patient has dentist HPI HPI Comments History of Present Illness Details 88-year-old male past history significant for PVD, depression, CVA anemia, hypercholesteremia, prostate cancer and lower extremity edema. Patient last seen in March by Mikki Escobar. Patient presents today for feet swelling. Bnp in February. Patient denies sob, calf cramping or pain. hx PVD has upcoming appointment with vascular surgery scheduled for 05/01/2023. Review of the notes patient [place] [facility] [place] and hyponatremia. Hospital course Dr. Chavez: The patient was admitted to the hospital for evaluated of fall. Mechanical in nature with no head injury or fractures. related to low sodium level and physical deconditioning. evaluated by PT and will be placed at rehab facility for therapy. Hyponatremia of 127 on admission. Urine studies suggestive of SIADH. treated with water restriction and Urea poweder with good response with sodium improving to 132 at day of discharge which is close to his baseline. evaluated by nephrology who will follow as outpatient. to repeat blood work next week. Spiked fever with no clear underlying infection. covered with empirical Ceftriaxone with resolution of fever. could be viral illness. to finish total of 5 days of antibiotics as outpatient. Has chronic urine incontinence problem. feels uncomfortable about. advised to pass urine regularly every 2-3 hour, wear a diaper or have a [place] placed while in rehab facility. Repeat sodium 04/23: Normal 135. Patient to be called to see if he has a follow up appointment with nephrology, if he does not have a follow up will send referral. Echocardiogram 02/2022 Conclusions: - 1.? Normal LV systolic function with impaired relaxation ? ? ? filling pattern? 2.? Mild aortic and mitral regurgitation ? 3.? No gross pericardial effusion? PFSH Medical History COVID-19 virus infection Hypercholesterolemia Hyponatremia Low sodium levels Normocytic anemia Osteoarthritis, shoulder Prostate cancer Venous insufficiency Surgical History Erectile dysfunction following urethral surgery History of radical prostatectomy Family History Father Diabetes Social History Household Members: Children Household Members Other:: daughter Housing: House Do you presently have visiting nurse or other home services: Yes ([facility]) Alcohol intake: current Alcohol intake frequency: does not drink Patient Tobacco Use Status: Never used Tobacco e-Cigarette/Vaping Use: Never Used Second Hand Smoke Exposure: No Advance Directives Date on File: 08/24/21 service: No Current occupational status: retired 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 1. Little interest or pleasure in doing things: several days 2. Feeling down, depressed, or hopeless: more than half the days 3. Trouble falling or staying asleep, or sleeping too much: not at all 4. Feeling tired or having little energy: more than half the days 5. Poor appetite or overeating: not at all 6. Feeling bad about yourself - or that you are a failure or have let yourself or your family down: more than half the days 7. Trouble concentrating on things, such as reading the newspaper or watching television: more than half the days 8. Moving or speaking so slowly that other people could have noticed. Or the opposite - being so fidgety or restless that you have been moving around a lot more than usual: several days 9. Thoughts that you would be better off or of hurting yourself in some way: not at all Total score: 10 Depression Screening Interpretation: Positive Depression Screening Follow-up: Change in Medication Source: Developed by Drs. Warner Gandhi, Ava Machuca, Mt Calderon and colleagues, with an educational conrad from [employer]. Thrive Questionnaire Date Thrive assessed: 04/03/23 AUDIT C Alcohol Use Questionnaire (AUDIT-C) 1. How often do you have a drink containing alcohol?: Monthly or less 2. How many drinks containing alcohol do you have on a typical day when you are drinking?: 1 or 2 3. How often do you have six or more drinks on one occasion?: Never Total Score: 1 Score Reviewed/Action Taken: No NESHA-7 AMB Questionnaire NESHA-7 Date NESHA - 7 assessed: 10/11/22 Source: Developed by Drs. Warner Gandhi, Ava Machuca, [place] Calderon and colleagues, with an educational conrad from [employer]. Review of Systems Const Denies chills, Denies fatigue, Denies fever(s) and Denies poor appetite Eyes Denies no additional complaints ENT Reports Normal hearing present Card Denies chest pain, Denies syncope, Denies rapid heart rate and Denies dyspnea Resp Denies cough and Denies dyspnea GI Denies change in stool character, Denies constipation, Denies diarrhea, Denies nausea and Denies vomiting Denies dysuria, Denies urinary frequency and Denies urinary urgency Neuro Reports Normal hearing present, Denies confusion and Denies syncope Psych Denies confusion Endo Denies fatigue Physical exam (Primary Care) Vital Signs: Last Vital Signs Pulse 78 04/29/23 11:31 BP 122/70 04/29/23 11:31 Pulse Ox 97 04/29/23 11:31 Oxygen Delivery Method Room Air 04/29/23 11:31 Tobacco/Smoking Status: Tobacco use Status Tobacco use date assessed 03/14/23 04/29/23 11:35 Patient Tobacco Use Status Never used Tobacco 04/29/23 11:35 e-Cigarette/Vaping Use Never Used 04/29/23 11:35 PHQ-9: PHQ-9 Score PHQ-9: Total score 10 04/29/23 12:32 Depression Screening Interpretation: Positive Depression Screening Follow-up: Change in Medication Thrive Assessment: Date of Thrive Assessment Date Thrive assessed 04/03/23 04/29/23 11:35 Const General: No confusion Orientation/consciousness: No confusion HENMT Head: Yes normocephalic and Yes atraumatic Eyes Conjunctivae: conjunctivae normal Chest Chest palpation & inspection: normal inspection of the chest Resp Effort & Inspection: normal respiratory effort Auscultation: clear to auscultation bilaterally, no crackles, no rhonchi and no wheezes Cardio Rate: regular rate Rhythm: regular rhythm Heart sounds: S1 normal heart sound present and S2 normal heart sound present Peripheral pulses: dorsalis pedis present GI Inspection: Yes normal to inspection General: Yes no CVA tenderness Back/Spine/Pelvis Back: no CVA tenderness Neuro General: No confusion Cranial nerves: Yes Normal hearing present Extrem General: Yes no calf tenderness, Yes pedal edema (1+ ) and Yes other (Bilateral dark discoloration to EDGAR. ) Assessment and Plan Assessment & Plan (1) Bilateral lower extremity edema: Code(s): R60.0 - Localized edema (2) Venous insufficiency: Code(s): I87.2 - Venous insufficiency (chronic) (peripheral) Plan: Vascular surgery consult scheduled for 05/01/23 (3) Diarrhea: Code(s): R19.7 - Diarrhea, unspecified Plan: Continue to follow with GI (4) Hypercholesterolemia: Code(s): E78.00 - Pure hypercholesterolemia, unspecified Plan: Continue on 40mg rosuvastatin. Follow low cholesterol diet. (5) SIADH (syndrome of inappropriate ADH production): Code(s): E22.2 - Syndrome of inappropriate secretion of antidiuretic hormone Plan: NA+: 135 on 04/23/23. Will verify if patient has follow up with nepgrology, if patient does not have an appointment will refer. Plan Follow up in 2 mo. for SAWV Medications: Discontinued ascorbic acid (vitamin C) ER 1,000 mg PO Q12H 30 tabs 0RF Coding Level of Care Code Est Pt Level 4 (95082) Diagnoses Bilateral lower extremity edema R60.0 Venous insufficiency I87.2 Diarrhea R19.7 Hypercholesterolemia E78.00 SIADH (syndrome of inappropriate ADH production) E22.2 Additional Codes PHQ-9 - 16332 - PHQ-9 Billing: Y ([id number])
== END 2023-04-29 12:13 | disposition home or self-care (01) ==
PROVIDERS: PCP Internal Medicine; Visit Provider Nurse Practitioner Family
DX: I87.2 Venous insufficiency (chronic) (peripheral) (principal); E22.2 Syndrome of inappropriate secretion of antidiuretic hormone; R60.0 Localized edema; R19.7 Diarrhea, unspecified; E78.00 Pure hypercholesterolemia, unspecified
CPT/HCPCS: 99214

== ENCOUNTER 2023-05-01 13:30 | Outpatient (AMB) | payer MEDICARE, SELFPAY ==
[2023-05-01 13:37] VITALS: BP 104/58; PULSE 60; O2SAT 97; BMI 18.8
--- NOTE | 2023-05-01 13:37 | A.OFFVIS_ITS ---
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 Pt states he has swelling in both feet, ankles, and legs. Pt states his legs aren't painful but experiences tingling sensations when he walks. Pt states he ambulates his feet about once day but doesn't recall if the swelling decreases. Pt states hes had discoloration on both legs for about 25 years but have gotten worse within the past two years. Pt state he has sores on his lower legs that happen as well. 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 Complaints include pain over varicosities, swelling of lower extremities, cramping, fatigue, and heaviness of the lower extremities. It has been affecting there daily activities including walking. It is noted more so in right leg. He actually has an active ulcer and that right posterior calf. Patient denies any previous venous surgery or injections. Patient denies any history of DVT/ PE. Patient denies any history of phlebitis. Trial of compression includes - [id number] They now present for vascular evaluation regarding their varicose veins. [facility] Medical History COVID-19 virus infection Hypercholesterolemia Hyponatremia Low sodium levels Normocytic anemia Osteoarthritis, shoulder Prostate cancer Venous insufficiency Surgical History Erectile dysfunction following urethral surgery History of radical prostatectomy Family History Father Diabetes Social History Household Members: Children Household Members Other:: daughter Housing: House Do you presently have visiting nurse or other home services: Yes ([facility]) Alcohol intake: current Alcohol intake frequency: does not drink Patient Tobacco Use Status: Never used Tobacco e-Cigarette/Vaping Use: Never Used Second Hand Smoke Exposure: No Advance Directives Date on File: 08/24/21 service: No Current occupational status: retired 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, 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 [employer] Cognitive needs: Yes (cane) Hearing needs: No Vision needs: Yes Review of Systems Const Reports as per HPI ENT Reports no additional complaints Card Denies chest pain, Denies chest pain at rest and Denies chest pain with activity Resp Denies chest congestion and Denies cough GI Reports no additional complaints Musc Details: pain over varicosities, aching of lower extremities, swelling, cramping, heaviness and tiredness, itching Denies abnormal gait Skin/Breast Reports pruritus and Denies wounds Neuro Reports no additional complaints and Denies abnormal gait Psych Denies no additional complaints Physical Exam Vital Signs: Last Vital Signs Pulse 60 05/01/23 13:37 BP 104/58 L 05/01/23 13:37 Pulse Ox 97 05/01/23 13:37 Oxygen Delivery Method Room Air 05/01/23 13:37 BMI result Body Mass Index 18.8 Const General: cooperative, healthy appearing and comfortable Orientation/consciousness: oriented to person, oriented to place and oriented to time Neck Carotids: no bruits Chest Chest palpation & inspection: normal inspection of the chest and normal palpation of entire chest wall Resp Effort & Inspection: normal respiratory effort and able to speak in complete sentences Cardio Rate: regular rate Heart sounds: S1 normal heart sound present and S2 normal heart sound present Peripheral pulses: Peripheral pulses 2+ throughout GI Inspection: Yes normal to inspection Skin Other: +2 edema, large rope-like varicosities greater than 4 mm right calf and thigh CEAP Classification C6 - active ulceration Ep - Etiology Primary As - superficial veins P - reflux General skin exam: dry skin Neuro General: oriented to person, oriented to place and oriented to time Extrem Right lower extremity: full ROM, normal capillary refill and edema Left lower extremity: full ROM, normal capillary refill and edema Psych Mental Status: mental status grossly normal Assessment & Plan Assessment & Plan (1) Varicose veins of right lower extremity with inflammation: Code(s): I83.11 - Varicose veins of right lower extremity with inflammation Plan: In short, the patient has evidence of venous insufficiency. Also of concern is his active ulceration in significant edema I have discussed the pathophysiology with the patient. In addition I have provided informational material regarding venous disease to the patient. We have discussed conservative measures including compression, elevation, and exercise. I have also provided a handout regarding appropriate use of compression stockings and where to purchase good compression stockings as well. I have taken the liberty of ordering venous insufficiency testing with the patient. They will follow up with me after testing. The patient had an opportunity to ask questions regarding the treatment plan. All questions were answered. Imaging studies, laboratory studies and physical exam results were discussed and reviewed in detail. No major barriers to understanding were identified. The patient expressed understanding and agreement with the above treatment plan. The patient is aware they should cont act our office by phone for worsening of the current condition or the appearance of new symptoms. Thank you for allowing me to participate in the vascular care of this patient. If you have any questions or concerns regarding the treatment for the above condition please do not hesitate to contact me. The office telephone contact is [phone]. This note is constructed using voice recognition software. While every effort has been made to ensure accuracy, head end desizing machine operator errors may have been included. Thank you for allowing me to participate in the care of your patient. Yours sincerely, Colin Kaminski MD, FACS, R.P.V.I. Orders: Orders US venous duplex LE BI 1 Week I83.11 - Varicose veins of right lower extremity with inflammation Medications: Discontinued ascorbic acid (vitamin C) ER 1,000 mg PO Q12H 30 tabs 0RF Coding Level of Care Code New Pt Level 4 (27639) Diagnoses Varicose veins of right lower extremity with inflammation I83.11
== END 2023-05-01 14:18 | disposition home or self-care (01) ==
PROVIDERS: PCP Internal Medicine; Visit Provider Surgery Vascular Surgery
DX: I83.11 Varicose veins of right lower extremity with inflammation (principal)
CPT/HCPCS: 99203

== ENCOUNTER → 2023-05-01 13:30 | Outpatient (BNVA) | payer MEDICARE, SELFPAY | PROVIDERS: PCP Internal Medicine; Visit Provider Surgery Vascular Surgery | DX: I83.11 Varicose veins of right lower extremity with inflammation (principal) | CPT/HCPCS: 99202 ==

== ENCOUNTER 2023-05-16 10:23 | Outpatient (REF) | payer MEDICARE, SELFPAY ==
--- NOTE | ~2023-05-16 | US_ITS ---
EXAMINATION: US VENOUS ULTRASOUND WITH DOPPLER LOWER EXTREMITY, BILATERAL CLINICAL INFORMATION: Varicose veins of right lower extremity with inflammation. COMPARISON: Lower extremity venous ultrasound from 08/09/2022. TECHNIQUE: Ultrasound of the deep veins is performed from the hip to the calf with compression sonography and color and pulse Doppler assessment. Spectral analysis with color-flow imaging is performed. FINDINGS: FINDINGS: RIGHT: Common femoral vein is compressible and exhibits a normal phasic waveform; this suggests that the iliac veins are widely patent above. Within the proximal thigh, the visualized profunda femoris vein is patent and the examined greater saphenous vein and saphenofemoral junction are normal. The superficial femoral vein is normal in the proximal, mid and distal thigh. Nonocclusive thrombus is detected within the popliteal vein. Within the calf, the visualized posterior tibial and peroneal veins are grossly normal. No evidence of Leal's cyst. LEFT: Common femoral vein is compressible and exhibits a normal phasic waveform. Within the proximal thigh, the visualized profunda femoris vein is patent and the examined greater saphenous vein and saphenofemoral junction are normal. The superficial femoral vein is patent and compressible in the proximal, mid and distal thigh. Small 0.4 cm echogenic focus along the posterior wall of the femoral vein in the mid thigh might represent focal wall thickening or calcification as a sequela of remote thrombosis. No evidence of acute venous thrombosis. The popliteal vein is patent to the level of the trifurcation and the visualized posterior tibial and peroneal veins are normal. No evidence of Leal's cyst. US/US venous duplex LE BI IMPRESSION: There is nonocclusive thrombus of the right popliteal vein. The US worksheet filled in by the chief medical technologist provides a note that the abnormal preliminary test result was given to Dr. Kaminski and the patient was sent to the ER.
== END 2023-05-16 10:24 | disposition home or self-care (01) ==
LOC: HO.US 10:23
PROVIDERS: PCP Internal Medicine; Visit Provider Surgery Vascular Surgery
DX: Z13.89 Encounter for screening for other disorder (principal)
CPT/HCPCS: 93970

== ENCOUNTER 2023-05-16 11:28 | Emergency (ER) | payer MEDICARE, SELFPAY ==
--- NOTE | 2023-05-16 11:57 | ED.GENADULT ---
HPI - General Adult General Chief complaint: Extremity Problem Stated complaint: DVT R LEG Time Seen by Provider: 05/16/23 15:58 Source: patient and old records reviewed Mode of arrival: ambulatory Limitations: no limitations History of Present Illness HPI narrative: 88 yo male with history of PVD, CVA, prostate cancer, OA, anemia, eczema, SIADH, and recent 6 months of lower extremity edema presents the ER for evaluation after he was found to have an acute DVT on his ultrasound today as an outpatient. He denies any pain in his lower extremities. He denies any shortness of breath or chest pain. He states he has chronic vascular disease and follows with Dr. Kaminski as an outpatient. He has appointment coming up cannot recall when it is. MD complaint: DVT Location: right and lower extremity Radiation: non-radiation Relieving factors: none Exacerbating factors: none Associated symptoms: denies other symptoms Treatments prior to arrival: none Related Data Home Medications Medication Instructions Recorded Confirmed cholecalciferol (vitamin D3) 25 25 mcg PO DAILY 01/17/21 04/29/23 mcg (1,000 unit) capsule meloxicam 15 mg tablet 15 mg PO DAILY 04/25/22 04/29/23 ascorbic acid (vitamin C) 1,000 mg 1,000 mg PO DAILY 02/22/23 04/29/23 tablet,extended release cyanocobalamin (vitamin B-12) 1,000 mcg PO DAILY 02/22/23 04/29/23 1,000 mcg tablet Previous Rx's Medication Instructions Recorded aspirin 81 mg tablet,delayed 81 mg PO DAILY #14 tabs 11/15/20 release (Adult Low Dose Aspirin) comp.stocking,knee,long,medium #2 ea 08/13/22 sertraline 50 mg tablet 25 mg (1/2 x 50 mg) PO DAILY 90 12/16/22 days #45 tabs rosuvastatin 40 mg tablet 40 mg PO DAILY #30 tabs 02/05/23 methylcellulose (laxative) 500 mg 500 mg PO DAILY #90 tabs 03/28/23 tablet (Citrucel) urea (bulk) 100 % powder 15 ea PO DAILY 30 days #1,000 grams 04/21/23 Lactobacillus rhamnosus GG 15 1 cap PO DAILY #90 caps 04/23/23 billion cell sprinkle capsule (Culturelle) polyethylene glycol 3350 17 17 g PO DAILY #510 grams 04/23/23 gram/dose oral powder (Miralax) apixaban 5 mg (74 tabs) tablets in 5 mg PO BID #74 ea 05/16/23 a dose pack (Eliquis DVT-PE Treat 30D Start) Allergies Allergy/AdvReac Type Severity Reaction Status Date / Time No Known Allergies Allergy Mild N/A Verified 05/01/23 13:41 Review of Systems Review of Systems: Yes all other systems are reviewed and are negative [facility] Past Medical History Medical History COVID-19 virus infection Hypercholesterolemia Hyponatremia Low sodium levels Normocytic anemia Osteoarthritis, shoulder Prostate cancer Venous insufficiency Surgical History Erectile dysfunction following urethral surgery History of radical prostatectomy Family History Family History Father Diabetes Social History Social History Household Members: Children Household Members Other:: daughter Housing: House Do you presently have visiting nurse or other home services: Yes ([facility]) Alcohol intake: current Alcohol intake frequency: does not drink Patient Tobacco Use Status: Never used Tobacco e-Cigarette/Vaping Use: Never Used Second Hand Smoke Exposure: No Advance Directives: Yes Advance Directives on File: Yes Advance Directives Date on File: 08/24/21 service: No Current occupational status: retired 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 Oriented X3. No acute distress. HEENT: normal external inspection Neck: Normal inspection. CVS: Normal heart rate and rhythm. Pulses normal. Respiratory: No respiratory distress. Abdomen: Soft and nontender. +BS x4 Skin: Skin warm and dry. Normal skin color. Normal skin turgor. No rashes. Extremities: trace lower extremity edema. varicose veins bilaterally. no calf tenderness on the right. no tenderness or erythema in the calf or popliteal fossa. 1+ pulses pulses in the feet Neuro/psych: Oriented X 3.Normal speech and cognition. Course Course Course Narrative: RME- 88-year-old male presents for evaluation of I had a ultrasound today at about 10:30 and they told me I have a blood clot in my right leg. ? Ultrasound was done at this facility, at the time of writing final report is not in the computer system. Plan for labs to evaluate renal function and coags Medical Decision Making Medical Decision Making MDM Narrative: 88 yo male presenting with a positive DVT study as an outpatient. There is a nonocclusive clot in the right popliteal vein. Dr. Kaminski contacted, no intervention plan. Okay to start patient on NOAC and discharge home. He has normal renal function, no need for dose adjustment. He has a chronic leukocytosis no evidence of infection at this time. He is stable anemia. Patient counseled extensively at the bedside regarding initiation of Eliquis, signs and symptoms of bleeding and precautions that should return to the ER. Will he has an appointment with Dr. Kaminski coming up. Stable for d/c Differential Diagnosis Differential Diagnoses: The differential diagnosis associated with the presentation includes Acute DVT, thrombophlebitis, cellulitis Consult Healthcare Provider Management of the patient was discussed with: Solar Sales Representative Dr. Kaminski from vascular surgery Lab Data [facility] Lab Attestation statement: I reviewed the patient's lab results. leukocytosis which is chronic, stable anemia normal renal function 05/16/23 12:20 05/16/23 12:20 Labs: Lab Results 05/16/23 Range/Units 12:20 WBC 20.5 H (4.8-10.8) X10*3/uL RBC 3.79 L (4.60-5.80) X10*6/uL Hgb 11.5 L (14.0-18.0) g/dl Hct 35.0 L (42.0-52.0) % MCV 92.3 (80.0-98.0) fL MCH 30.3 (27.0-33.0) pg MCHC 32.9 (31.0-36.0) g/dl RDW 15.2 (11.0-16.0) % Plt Count 407 H D (160-400) X10*3/uL MPV 8.2 L (9.4-12.4) fL Immature Gran % (Auto) 1.2 H (0.0-0.4) % Neut % (Auto) 86.9 H (45-73) % Lymph % (Auto) 6.7 L (20-40) % [place] % (Auto) 5.0 (2-11) % Eos % (Auto) 0.1 (0-4) % Baso % (Auto) 0.1 (0-2) % Lymph # (Auto) 1.4 (1.2-4.9) X10*3/uL [place] # (Auto) 1.0 (0.1-1.2) X10*3/uL Eos # (Auto) 0.0 (0.0-0.4) X10*3/uL Baso # (Auto) 0.0 (0.0-0.2) X10*3/uL Abs Immat Gran (auto) 0.25 H (0.00-0.03) X10*3/uL Absolute Neuts (auto) 17.8 H (2.0-8.3) x10*3/uL Absolute Nucleated RBC 0.000 (0.0-0.012) X10*3/uL Nucleated RBC % (auto) 0.0 (0.0-0.2) /100WBC PT 11.9 (11.1-13.3) SEC INR 1.0 (0.9-1.1) APTT 25.1 L (26.0-36.4) SEC Sodium 134 L (135-145) mmol/L Potassium 4.2 (3.3-5.1) mmol/L Chloride 102 (96-108) mmol/L Carbon Dioxide 29 (22-29) mmol/L Anion Gap 7 L (12-20) BUN 21 H (9-16) mg/dL Creatinine 0.75 (0.5-1.4) mg/dL Estim Creat Clear Calc 55.6 Estimated GFR > 60 Random Glucose 110 (60-115) mg/dL Calcium 10.1 D (8.4-10.2) mg/dL Total Bilirubin 0.2 (0.0-1.0) mg/dL AST 70 H (5-37) U/L ALT 81 H (0-40) U/L Alkaline Phosphatase 106 (39-117) U/L Total Protein 7.1 (6.5-8.0) g/dL Albumin 2.9 L (3.5-5.0) g/dL Lipase 31 (8-78) U/L Independent Interpretation I performed an independent interpretation of an: Ultrasound Interpretation: acute DVT appreciated, agree with radiologist read Radiology Impression Discussion of test interpretation with radiology: I have reviewed the radiologist's reading. Radiologist Impression: EXAMINATION: US VENOUS ULTRASOUND WITH DOPPLER LOWER EXTREMITY, BILATERAL CLINICAL INFORMATION: Varicose veins of right lower extremity with inflammation. COMPARISON: Lower extremity venous ultrasound from 08/09/2022. TECHNIQUE: Ultrasound of the deep veins is performed from the hip to the calf with compression sonography and color and pulse Doppler assessment. Spectral analysis with color-flow imaging is performed. FINDINGS: FINDINGS: RIGHT: Common femoral vein is compressible and exhibits a normal phasic waveform; this suggests that the iliac veins are widely patent above. Within the proximal thigh, the visualized profunda femoris vein is patent and the examined greater saphenous vein and saphenofemoral junction are normal. The superficial femoral vein is normal in the proximal, mid and distal thigh. Nonocclusive thrombus is detected within the popliteal vein. Within the calf, the visualized posterior tibial and peroneal veins are grossly normal. No evidence of Leal's cyst. LEFT: Common femoral vein is compressible and exhibits a normal phasic waveform. Within the proximal thigh, the visualized profunda femoris vein is patent and the examined greater saphenous vein and saphenofemoral junction are normal. The superficial femoral vein is patent and compressible in the proximal, mid and distal thigh. Small 0.4 cm echogenic focus along the posterior wall of the femoral vein in the mid thigh might represent focal wall thickening or calcification as a sequela of remote thrombosis. No evidence of acute venous thrombosis. The popliteal vein is patent to the level of the trifurcation and the visualized posterior tibial and peroneal veins are normal. No evidence of Leal's cyst. US/US venous duplex LE BI IMPRESSION: There is nonocclusive thrombus of the right popliteal vein. External Record Review External record reviewed: Office record, Outpatient record, Prior outpatient labs and Prior outpatient radiology Prescription Management I considered prescription management with: Other ( NOAC) Chronic Conditions Patient?s care impacted by: Other ( PVD) Critical Care Time Critical Care Time Critical Care Time: No Discharge Plan Discharge Clinical Impression: Acute deep vein thrombosis (DVT) of popliteal vein Patient Disposition: Home, Self-Care Instructions: Deep Vein Thrombosis (ED) Additional Instructions: Your ultrasound today showed that you have a blood clot in the vein behind urine knee on the right side. Treatment is anticoagulation medication to thin your blood and prevent new clots while your body slowly absorbs the old clot. A 30 day starter pack of Eliquis has been sent to your pharmacy. You start by taking 2 tablets (10mg) 2x per day x1 week For the remainder of your treatment course which will be several months you will take 1 tablet in the morning 1 tablet at night. Monitor for signs and symptoms of bleeding. If you develop signs or symptoms of bleeding, it may be hard to stop that now that your on a blood thinner. If you fall and hit your head you need to get evaluated in the emergency department. Follow-up with Dr. Kaminski as scheduled If you develop new or worsening symptoms call 911 or come back to the ER for further evaluation. Prescriptions: New Eliquis DVT-PE Treat 30D Start 5 mg (74 tabs) tablets,dose pack 5 mg PO BID Qty: 74 0RF No Action aspirin [Adult Low Dose Aspirin] 81 mg tablet,delayed release (DR/EC) 81 mg PO DAILY Qty: 14 0RF sertraline 50 mg tablet 25 mg PO DAILY 90 Days Qty: 45 1RF rosuvastatin 40 mg tablet 40 mg PO DAILY Qty: 30 3RF urea (bulk) 100 % powder 15 ea PO DAILY 30 Days Qty: 1000 0RF cyanocobalamin (vitamin B-12) 1,000 mcg Tablet 1,000 mcg PO DAILY ascorbic acid (vitamin C) 1,000 mg tablet extended release 1,000 mg PO DAILY cholecalciferol (vitamin D3) 25 mcg (1,000 unit) capsule 25 mcg PO DAILY (DME) comp.stocking,knee,long,medium Misc See Rx Instructions .Route Qty: 2 0RF Rx Instructions: As directed meloxicam 15 mg tablet 15 mg PO DAILY Citrucel 500 mg tablet 500 mg PO DAILY Qty: 90 2RF Rx Instructions: take it with full glass of water polyethylene glycol 3350 [Miralax] 17 gram/dose powder 17 g PO DAILY Qty: 510 2RF Culturelle 15 billion cell capsule, sprinkle 1 cap PO DAILY Qty: 90 2RF Referrals: [facility] [Provider Group] ( right popliteal DVT) Po,Bobbi Fitzgerald MD [Primary Care Provider] -
[2023-05-16 11:59] VITALS: BP 136/51; PULSE 66; RESP 18; TEMP 36.4; O2SAT 99; BMI 17.9
[2023-05-16 12:24] LABS: MANUAL DIFF FLAG NO
[2023-05-16 12:25] LABS: Basophils Percent Auto 0.1 % (0-2); Eosinophils Percent Auto 0.1 % (0-4); Hemoglobin 11.5 g/dl (14.0-18.0); Imm Gran Abs Auto 0.25 X10*3/uL (0.00-0.03); Imm Gran Pct Auto 1.2 % (0.0-0.4); Lymphocytes Absolute Auto 1.4 X10*3/uL (1.2-4.9); Lymphocytes Percent Auto 6.7 % (20-40); Mean Corpuscular HGB Conc 32.9 g/dl (31.0-36.0); Mean Corpuscular Hemoglobin 30.3 pg (27.0-33.0); Mean Corpuscular Volume 92.3 fL (80.0-98.0); Mean Platelet Volume 8.2 fL (9.4-12.4); Neutrophils Absolute Auto 17.8 x10*3/uL (2.0-8.3); Neutrophils Percent Auto 86.9 % (45-73); Platelet Count 407 X10*3/uL (160-400); Red Blood Count 3.79 X10*6/uL (4.60-5.80); Red Cell Distribution Width 15.2 % (11.0-16.0); White Blood Count 20.5 X10*3/uL (4.8-10.8)
[2023-05-16 12:37] LABS: Prothrombin Time 11.9 SEC (11.1-13.3)
[2023-05-16 12:39] LABS: Alanine Aminotransferase 81 U/L (0-40); Albumin Level 2.9 g/dL (3.5-5.0); Alkaline Phosphatase 106 U/L (39-117); Anion Gap 7 (12-20); Aspartate Amino Transferase 70 U/L (5-37); Bilirubin Total 0.2 mg/dL (0.0-1.0); Blood Urea Nitrogen 21 mg/dL (9-16); Calcium 10.1 mg/dL (8.4-10.2); Carbon Dioxide 29 mmol/L (22-29); Chloride 102 mmol/L (96-108); Creatinine Clr Calc Pharmacy 55.6; Estimated Glomerular Filt Rate > 60; Glucose Random 110 mg/dL (60-115); Lipase 31 U/L (8-78); Partial Thromboplastin Time 25.1 SEC (26.0-36.4); Potassium 4.2 mmol/L (3.3-5.1); Sodium 134 mmol/L (135-145); Total Protein 7.1 g/dL (6.5-8.0)
[2023-05-16 16:33] VITALS: PULSE 70; RESP 18; O2SAT 99
--- NOTE | 2023-05-16 16:33 | PC.NURSE ---
alert speech clear, skin wpd, r knee discomfort from dvt, d/c inst reviewed w pt
== END 2023-05-16 16:36 | disposition home or self-care (01) ==
PROVIDERS: Physician Assistant; Emergency Provider Emergency Medicine; PCP Internal Medicine
DX: I82.431 Acute embolism and thrombosis of right popliteal vein (principal); R60.0 Localized edema; E78.00 Pure hypercholesterolemia, unspecified; Z85.46 Personal history of malignant neoplasm of prostate; Z79.899 Other long term (current) drug therapy; Z79.82 Long term (current) use of aspirin
CPT/HCPCS: 36415; 80053; 83690; 85025; 85610; 85730; 93970; 99282; 99283

== ENCOUNTER 2023-05-21 08:15 | Outpatient (REF) | payer MEDICARE, SELFPAY ==
[2023-05-21 12:01] LABS: MANUAL DIFF FLAG NO
[2023-05-21 13:08] LABS: Basophils Percent Auto 0.2 % (0-2); Eosinophils Percent Auto 0.1 % (0-4); Hemoglobin 12.1 g/dl (14.0-18.0); Imm Gran Abs Auto 0.23 X10*3/uL (0.00-0.03); Imm Gran Pct Auto 1.3 % (0.0-0.4); Lymphocytes Absolute Auto 1.4 X10*3/uL (1.2-4.9); Lymphocytes Percent Auto 7.8 % (20-40); Mean Corpuscular HGB Conc 31.8 g/dl (31.0-36.0); Mean Corpuscular Hemoglobin 30.5 pg (27.0-33.0); Mean Corpuscular Volume 95.7 fL (80.0-98.0); Mean Platelet Volume 9.3 fL (9.4-12.4); Monocytes Absolute Auto 0.8 X10*3/uL (0.1-1.2); Monocytes Percent Auto 4.5 % (2-11); Neutrophils Absolute Auto 15.5 x10*3/uL (2.0-8.3); Neutrophils Percent Auto 86.1 % (45-73); Platelet Count 405 X10*3/uL (160-400); Red Blood Count 3.97 X10*6/uL (4.60-5.80); Red Cell Distribution Width 15.8 % (11.0-16.0); White Blood Count 17.9 X10*3/uL (4.8-10.8)
[2023-05-21 13:38] LABS: Prostate Specific Antigen Scr < 0.10 ng/mL (<0.05-4.0)
[2023-05-21 13:43] LABS: Alanine Aminotransferase 77 U/L (0-40); Albumin Level 2.8 g/dL (3.5-5.0); Alkaline Phosphatase 103 U/L (39-117); Anion Gap 13 (12-20); Aspartate Amino Transferase 63 U/L (5-37); Bilirubin Total 0.3 mg/dL (0.0-1.0); Blood Urea Nitrogen 11 mg/dL (9-16); Calcium 8.9 mg/dL (8.4-10.2); Carbon Dioxide 24 mmol/L (22-29); Chloride 101 mmol/L (96-108); Cholesterol 124 mg/dL (<200); Estimated Glomerular Filt Rate > 60; Glucose Random 117 mg/dL (60-115); HDL Cholesterol 44 mg/dL (>40); LDL Cholesterol Calculated 60 mg/dL (<100); Magnesium 2.1 mg/dL (1.6-2.6); Phosphorus 2.8 mg/dL (2.7-4.5); Potassium 3.9 mmol/L (3.3-5.1); Sodium 134 mmol/L (135-145); Total Protein 6.2 g/dL (6.5-8.0); Triglycerides 102 mg/dL (<150)
[2023-05-21 13:58] LABS: Free T4 (Free Thyroxine) 0.88 ng/dL (0.71-1.85); Thyroid Stimulating Hormone 2.14 uIU/mL (0.32-4.0)
== END 2023-05-21 08:16 | disposition home or self-care (01) ==
LOC: HO.HMGCLNP 08:15
PROVIDERS: PCP Internal Medicine; Visit Provider Internal Medicine
DX: E22.2 Syndrome of inappropriate secretion of antidiuretic hormone (principal); E78.00 Pure hypercholesterolemia, unspecified; Z12.5 Encounter for screening for malignant neoplasm of prostate
CPT/HCPCS: 80053; 80061; 83735; 84100; 84153; 84439; 84443; 85025

== ENCOUNTER 2023-05-27 10:23 | Outpatient (AMB) | payer MEDICARE, SELFPAY ==
[2023-05-27 10:24] VITALS: BP 98/72; PULSE 58; BMI 18.1
--- NOTE | 2023-05-27 10:24 | MHC.PC.OV ---
Vital Signs 05/27/23 10:24 05/27/23 10:53 Height 5 ft 10 in Weight 126 lb BMI 18.1 BP 98/72 98/70 Blood Pressure Location Lt brachial Lt brachial Position Sitting Sitting Pulse 58 80 Pulse Source Pulse Oximeter Pulse Oximeter Temp Source Skin Pulse Oximetry (%) 91 L Oxygen Delivery Method Room Air Room Air Intake Visit Reasons: decreased appetite, weight loss Intake Note: pt states decreased appetite and weight loss X2 weeks Block Cableman Required: No Allergies No Known Allergies Allergy (Mild, Verified 05/27/23 10:42) N/A Medication List - Last Reconciled 05/27/23 by TYLER Zamora apixaban (Eliquis DVT-PE Treat 30D Start) 5 mg PO BID ascorbic acid (vitamin C) ER 1,000 mg PO DAILY aspirin (Adult Low Dose Aspirin) 81 mg PO DAILY cholecalciferol (vitamin D3) 25 mcg PO DAILY comp.stocking,knee,long,medium As directed cyanocobalamin (vitamin B-12) 1,000 mcg PO DAILY cyproheptadine 4 mg PO BEDTIME Lactobacillus rhamnosus GG (Culturelle) 1 cap PO DAILY meloxicam 15 mg PO DAILY methylcellulose (laxative) (Citrucel) 500 mg PO DAILY polyethylene glycol 3350 (Miralax) 17 grams PO DAILY rosuvastatin 40 mg PO DAILY sertraline 25 mg (1/2 x 50 mg) PO DAILY 90 days urea (bulk) 100% 15 ea PO DAILY 30 days Tobacco use date assessed: 05/27/23 Fall risk assessment: 2 + Falls in past year Last assessed Fall Risk: 05/27/23 HPI decreased appetite, weight loss HPI Details Patient is an 88-year-old male who presents today for an office visit due to decreased appetite and weight loss for the past 7-8 weeks per patient. Patient of Dr. Harris. Medical history significant for hypercholesterolemia, anemia-followed by Dr. Figueroa, gait instability-ambulates with a walker, constipation, and decreased appetite. Patient denies shortness of breath or chest pain. He reports drinking Ensure about 1 to 3 times per day for the past 3 years now. Patient denies any urinary symptoms. No fever or chills. He reports intermittent dry cough for the past 3 days. Reports weakness in his legs and arms, denies falling. Blood pressure slightly low in the office today, oxygen 91% on RA, patient has cold hands, denies any difficulty breathing. Patient ambulates with a walker. Patient was started on cyproheptadine for appetite about 1 week ago by his PCP. [facility] Medical History Normocytic anemia Hyponatremia Low sodium levels Hypercholesterolemia Prostate cancer Osteoarthritis, shoulder Venous insufficiency COVID-19 virus infection Surgical History History of radical prostatectomy Erectile dysfunction following urethral surgery Family History Father Diabetes Social History Household Members: Children Household Members Other:: daughter Housing: House Do you presently have visiting nurse or other home services: Yes ([facility]) Alcohol intake: current Alcohol intake frequency: does not drink Patient Tobacco Use Status: Never used Tobacco e-Cigarette/Vaping Use: Never Used Second Hand Smoke Exposure: No Advance Directives Date on File: 08/24/21 service: No Current occupational status: retired 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 3. Trouble falling or staying asleep, or sleeping too much: nearly every day Source: Developed by Drs. Warner Gandhi, Mt Rosas and colleagues, with an educational conrad from [employer] ([employer]). Thrive Questionnaire Date Thrive assessed: 04/03/23 AUDIT C Alcohol Use Questionnaire (AUDIT-C) 1. How often do you have a drink containing alcohol?: Monthly or less 2. How many drinks containing alcohol do you have on a typical day when you are drinking?: 1 or 2 3. How often do you have six or more drinks on one occasion?: Never Total Score: 1 Score Reviewed/Action Taken: No NESHA-7 AMB Questionnaire NESHA-7 Date NESHA - 7 assessed: 10/11/22 Source: Developed by Drs. Warner Gandhi, Mt Rosas and colleagues, with an educational conrad from [employer] ([employer]). Review of Systems Const Denies body aches, Denies chills, Denies fever(s), Denies headache(s), Reports poor appetite, Reports weakness and Reports weight loss ENT Denies dizziness, Denies otalgia, Denies headache(s), Denies nasal discharge, Denies sinus pain and Denies sore throat Card Denies chest pain, Denies edema, Denies lightheadedness and Denies dyspnea Resp Reports cough, Denies dyspnea and Denies wheezing GI Denies abdominal pain, Denies constipation, Denies diarrhea, Denies nausea and Denies vomiting Denies hematuria, Denies difficulty urinating and Denies dysuria Musc Denies myalgias Skin/Breast Denies rash Neuro Denies dizziness, Denies headache(s) and Reports weakness Aller/Immun Denies wheezing Physical exam (Primary Care) Vital Signs: Last Vital Signs Pulse 80 05/27/23 10:53 BP 98/70 05/27/23 10:53 Pulse Ox 91 L 05/27/23 10:53 Oxygen Delivery Method Room Air 05/27/23 10:53 BMI result Body Mass Index 18.1 Tobacco/Smoking Status: Tobacco use Status Tobacco use date assessed 05/27/23 05/27/23 10:37 Patient Tobacco Use Status Never used Tobacco 05/27/23 10:37 e-Cigarette/Vaping Use Never Used 05/27/23 10:37 Thrive Assessment: Date of Thrive Assessment Date Thrive assessed 04/03/23 05/27/23 10:37 Const Other: Ambulates with a walker General: cooperative and no acute distress Orientation/consciousness: patient oriented x3 [facility] Head: Yes normocephalic and Yes atraumatic Mouth: oropharynx normal and moist mucous membranes Throat: Yes posterior oropharynx normal Eyes General: appearance normal, both eyes and all related structures Neck Neck: Yes normal visual inspection, Yes full ROM and Yes no lymphadenopathy Resp Effort & Inspection: normal respiratory effort and able to speak in complete sentences Auscultation: clear to auscultation bilaterally, no crackles, no rales, no rhonchi and no wheezes Cardio Rate: regular rate Rhythm: regular rhythm Heart sounds: S1 normal heart sound present and S2 normal heart sound present GI Auscultation: normal bowel sounds Skin General skin exam: no rashes or lesions noted Neuro General: patient oriented x3 Extrem General: Yes full ROM and No edema Results AMB Urinalysis, Automated UA Leukoctes 0 Ananth/uL Last Edit by Renée Horn Mame on 05/27/23 10:45 UA Nitrite Negative Last Edit by Renée Horn [facility] on 05/27/23 10:45 UA Urobilinogen 1 mg/dL Last Edit by Renée Horn [facility] on 05/27/23 10:45 UA Protein 30 mg/dL Last Edit by Renée Horn [facility] on 05/27/23 10:45 UA pH 7.0 Last Edit by Renée Horn [facility] on 05/27/23 10:45 UA Blood 1 Lebron/uL Last Edit by Renée Horn [facility] on 05/27/23 10:45 UA Specific [place] 1.015 Last Edit by Renée Horn [facility] on 05/27/23 10:45 UA Ketone Positive Last Edit by Renée Horn [facility] on 05/27/23 10:45 UA Bilirubin 0 mg/dL Last Edit by Renée Horn [facility] on 05/27/23 10:45 UA Glucose 0 mg/dL Last Edit by Renée Horn [facility] on 05/27/23 10:45 Results Reviewed Results Reviewed: Laboratory Last Values Urine pH (Auto) 7.0 05/27/23 10:37 Specific [place] (Auto) 1.015 05/27/23 10:37 Urine Protein (Auto) 30 mg/dL 05/27/23 10:37 Glucose (UA)(Auto) 0 mg/dL 05/27/23 10:37 Urine Ketones (Auto) Positive 05/27/23 10:37 Urine Blood (Auto) 1 [place]/uL 05/27/23 10:37 Urine Nitrite (Auto) Negative 05/27/23 10:37 Urine Bilirubin (Auto) 0 mg/dL 05/27/23 10:37 Urine Urobilinogen (Auto) 1 mg/dL 05/27/23 10:37 Leukocyte Esterase (Auto) 0 Ananth/uL 05/27/23 10:37 Assessment and Plan Assessment & Plan (1) Weakness: Code(s): R53.1 - Weakness Plan: Urinalysis is negative for UTI, will send urine for culture, will notify of the results Patient denies urinary symptoms (2) Cough: Code(s): R05.9 - Cough, unspecified Plan: Patient reports intermittent dry cough for the past 3 days Will provide patient with Ventolin every 4-6 hours p.r.n. p.r.n. Will obtain chest x-ray-will notify of the results Lungs clear to auscultation (3) Decreased appetite: Code(s): R63.0 - Anorexia Plan: Will refer to rf technician for consultation Patient is to continue cyproheptadine as prescribed Continue Ensure b.i.d. p.r.n. Plan Signs and symptoms reviewed when to notify provider or go to the emergency department Patient agreed with the plan Orders: Orders AMB Urinalysis Automated Today R53.1 - Weakness Urine Culture Today R53.1 - Weakness XR chest 2V Today R05.9 - Cough, unspecified Referrals Nutrition/Dietitian Referral R63.0 - Anorexia Medications: New albuterol sulfate 90 mcg/actuation (Ventolin HFA) 2 puffs inhalation Q4-6H PRN 8.5 grams 0RF shortness of breath or wheezing R05.9 - Cough, unspecified Coding Level of Care Code Est Pt Level 4 (64335) Diagnoses Weakness R53.1 Cough R05.9 Decreased appetite R63.0
[2023-05-27 10:53] VITALS: BP 98/70; PULSE 80; O2SAT 91
== END 2023-05-27 11:10 | disposition home or self-care (01) ==
PROVIDERS: PCP Internal Medicine; Visit Provider Nurse Practitioner Family
DX: R53.1 Weakness (principal); R05.9 Cough, unspecified; R63.0 Anorexia
CPT/HCPCS: 81003; 99214

== ENCOUNTER 2023-05-27 10:49 | Outpatient (REF) | payer MEDICARE, SELFPAY | END 2023-05-27 10:50 | disposition home or self-care (01) | LOC: HO.LAB 10:49 | PROVIDERS: Visit Provider Nurse Practitioner Family | DX: R53.1 Weakness (principal) | CPT/HCPCS: 87086 ==

== ENCOUNTER 2023-05-29 10:31 | Outpatient (REF) | payer MEDICARE, SELFPAY ==
--- NOTE | ~2023-05-29 | XR_ITS ---
EXAMINATION: XR CHEST CLINICAL INFORMATION: Cough. COMPARISON: Most recent chest radiograph dated 04/02/2023. TECHNIQUE: 2 views of the chest were obtained. FINDINGS: Bilateral calcified pleural plaques are redemonstrated, similar when compared to the prior examination. No new airspace consolidation. No pleural effusion or pneumothorax. Stable cardiomediastinal silhouette. XR/XR chest 2V IMPRESSION: Bilateral calcified pleural plaques, unchanged. No acute cardiopulmonary findings.
== END 2023-05-29 10:32 | disposition home or self-care (01) ==
LOC: HO.XRAY 10:31
PROVIDERS: PCP Internal Medicine; Visit Provider Nurse Practitioner Family
DX: R05.9 Cough, unspecified (principal)
CPT/HCPCS: 71046

== ENCOUNTER 2023-06-03 15:53 | Outpatient (AMB) | payer MEDICARE, SELFPAY ==
[2023-06-03 16:02] VITALS: BP 88/58; PULSE 77; O2SAT 98; BMI 18.0
--- NOTE | 2023-06-03 16:02 | A.OFFPC_ITS ---
Vital Signs 06/03/23 16:02 Height 5 ft 10 in Weight 125 lb 3.561 oz BMI 18.0 BP 88/58 L Blood Pressure Location Lt brachial Position Sitting Pulse 77 Pulse Source Pulse Oximeter Temp Source Skin Pulse Oximetry (%) 98 Oxygen Delivery Method Room Air Intake Visit Reasons: declining, depressed, refusing to eat Intake Note: pain right sided groin Allergies No Known Allergies Allergy (Mild, Verified 05/27/23 10:42) N/A Medication List - Last Reconciled 06/03/23 by TYLER Zamora albuterol sulfate 90 mcg/actuation (Ventolin HFA) 2 puffs inhalation Q4-6H PRN apixaban (Eliquis DVT-PE Treat 30D Start) 5 mg PO BID ascorbic acid (vitamin C) ER 1,000 mg PO DAILY aspirin (Adult Low Dose Aspirin) 81 mg PO DAILY chair, wheel (Wheel chair) 16 inch with elevating leg rest (manual) cholecalciferol (vitamin D3) 25 mcg PO DAILY comp.stocking,knee,long,medium As directed cyanocobalamin (vitamin B-12) 1,000 mcg PO DAILY cyproheptadine 4 mg PO BEDTIME Lactobacillus rhamnosus GG (Culturelle) 1 cap PO DAILY meloxicam 15 mg PO DAILY methylcellulose (laxative) (Citrucel) 500 mg PO DAILY polyethylene glycol 3350 (Miralax) 17 grams PO DAILY rosuvastatin 40 mg PO DAILY sertraline 25 mg (1/2 x 50 mg) PO DAILY 90 days urea (bulk) 100% 15 ea PO DAILY 30 days Tobacco use date assessed: 05/27/23 Fall risk assessment: 2 + Falls in past year Last assessed Fall Risk: 06/03/23 HPI declining, depressed, refusing to eat HPI Details Patient is an 88-year-old male who presents today for the same day visit due to declining, depressed, and refusing to eat. Patient of Dr. Harris. Medical history significant for hypercholesterolemia, gait instability, depression, dysphagia among others. PHQ-9 score 24, denies HI. Patient is currently on sertraline 25 mg daily. Patient is accompanied by his daughter today who reports that patient drinks Ensure about 2-3 times per day. Also patient this morning had 1 waffle and Ensure, at lunch he only had Ensure. Daughter reports that patient does not drink enough water. Also patient is coughing with swallowing water for the past some time now. Patient not interested in counseling referral. Patient is on cyproheptadine 4 mg at bedtime for appetite, reports that this possibly worked in the beginning and seems that it does not work now. Patient denies shortness of breath or chest pain. Patient will continue to benefit from VNA nursing, patient active with [facility]. [facility] Medical History Normocytic anemia Hyponatremia Low sodium levels Hypercholesterolemia Prostate cancer Osteoarthritis, shoulder Venous insufficiency COVID-19 virus infection Surgical History History of radical prostatectomy Erectile dysfunction following urethral surgery Family History Father Diabetes Social History Household Members: Children Household Members Other:: daughter Housing: House Do you presently have visiting nurse or other home services: Yes ([facility]) Alcohol intake: current Alcohol intake frequency: does not drink Patient Tobacco Use Status: Never used Tobacco e-Cigarette/Vaping Use: Never Used Second Hand Smoke Exposure: No Advance Directives Date on File: 08/24/21 service: No Current occupational status: retired 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 1. Little interest or pleasure in doing things: more than half the days 2. Feeling down, depressed, or hopeless: nearly every day 3. Trouble falling or staying asleep, or sleeping too much: nearly every day 4. Feeling tired or having little energy: nearly every day 5. Poor appetite or overeating: nearly every day 6. Feeling bad about yourself - or that you are a failure or have let yourself or your family down: nearly every day 7. Trouble concentrating on things, such as reading the newspaper or watching television: nearly every day 8. Moving or speaking so slowly that other people could have noticed. Or the opp osite - being so fidgety or restless that you have been moving around a lot more than usual: nearly every day 9. Thoughts that you would be better off or of hurting yourself in some way: several days (pt states questionable ) Total score: 24 Depression Screening Interpretation: Positive Depression Screening Follow-up: Change in Medication 21982 - PHQ-9 Billing: Yes Source: Developed by Drs. Warner Gandhi, Mt Rosas and colleagues, with an educational conrad from [employer]. Thrive Questionnaire Date Thrive assessed: 04/03/23 NESHA-7 AMB Questionnaire NESHA-7 Date NESHA - 7 assessed: 10/11/22 Feeling nervous, anxious, or on edge: 2 = More than half the days Not being able to stop or control worryin = Nearly every day Worrying too much about different things: 3 = Nearly every day Trouble relaxin = Nearly every day Being so restless that it is hard to sit still: 3 = Nearly every day Becoming easily annoyed or irritable: 1 = Several days Feeling afraid as if something awful might happen: 0 = Not at all Total NESHA-7 score (0-4 normal; 5-9 mild; 10-14 moderate; 15-21 severe): 15 Source: Developed by Drs. Warner Gandhi, Ava Machuca, Mt Calderon and colleagues, with an educational conrad from [employer]. NESHA-7 Assessment Billing NESHA-7 Assessment Tool: NESHA-7 Assessment 31087 Review of Systems Const Denies body aches, Denies chills, Denies fever(s), Denies headache(s), Reports poor appetite, Reports weakness and Reports weight loss ENT Denies dizziness, Denies otalgia, Denies headache(s), Denies nasal discharge, Denies sinus pain and Denies sore throat Card Denies chest pain, Denies edema, Denies lightheadedness and Denies dyspnea Resp Reports cough, Denies dyspnea and Denies wheezing GI Denies abdominal pain Denies difficulty urinating Musc Denies myalgias Skin/Breast Denies rash Neuro Denies dizziness, Denies headache(s) and Reports weakness Aller/Immun Denies wheezing Physical exam (Primary Care) Vital Signs: Last Vital Signs Pulse 77 06/03/23 16:02 BP 88/58 L 06/03/23 16:02 Pulse Ox 98 06/03/23 16:02 Oxygen Delivery Method Room Air 06/03/23 16:02 BMI result Body Mass Index 18.0 Tobacco/Smoking Status: Tobacco use Status Tobacco use date assessed 05/27/23 06/03/23 16:10 Patient Tobacco Use Status Never used Tobacco 06/03/23 16:10 e-Cigarette/Vaping Use Never Used 06/03/23 16:10 PHQ-9: PHQ-9 Score PHQ-9: Total score 24 06/03/23 16:29 Depression Screening Interpretation: Positive Depression Screening Follow-up: Change in Medication Thrive Assessment: Date of Thrive Assessment Date Thrive assessed 04/03/23 06/03/23 16:10 Const Other: Ambulates with a walker General: cooperative and no acute distress Orientation/consciousness: patient oriented x3 HENMT Head: Yes normocephalic and Yes atraumatic Mouth: oropharynx normal and moist mucous membranes Throat: Yes posterior oropharynx normal Eyes General: appearance normal, both eyes and all related structures Neck Neck: Yes normal visual inspection, Yes full ROM and Yes no lymphadenopathy Resp Effort & Inspection: normal respiratory effort and able to speak in complete sentences Auscultation: clear to auscultation bilaterally, no crackles, no rales, no rhonchi and no wheezes Cardio Rate: regular rate Rhythm: regular rhythm Heart sounds: S1 normal heart sound present and S2 normal heart sound present GI Auscultation: normal bowel sounds Skin General skin exam: no rashes or lesions noted Neuro General: patient oriented x3 Extrem General: Yes full ROM and No edema Assessment and Plan Assessment & Plan (1) Decreased appetite: Code(s): R63.0 - Anorexia Plan: Patient is to continue cyproheptadine as prescribed Continue Ensure b.i.d. p.r.n. (2) Physical deconditioning: Code(s): R53.81 - Other malaise Plan: Same as above Urinalysis negative for UTI last week, patient denies urinary symptoms (3) Recurrent major depression: Code(s): F33.9 - Major depressive disorder, recurrent, unspecified Qualifiers: Active/Remission status: remission status unspecified Qualified Code(s): F33.9 - Major depressive disorder, recurrent, unspecified Plan: Stop Sertraline Start paroxetine 20 mg at bedtime - which can promote weight gain Case discussed with Dr. Harris (4) Dysphagia: Code(s): R13.10 - Dysphagia, unspecified Plan: Will obtain upper GI study Plan Signs and symptoms reviewed when to notify provider or go to the emergency department Patient and his daughter agreed with the plan Orders: Orders [place] upper GI w Ba Swallow Today R13.10 - Dysphagia, unspecified Medications: New paroxetine HCl 20 mg PO BEDTIME 30 tabs 2RF F33.9 - Major depressive disorder, recurrent, unspecified Discontinued sertraline Discontinued Reason: Doctor's Order 25 mg (1/2 x 50 mg) PO DAILY 90 days 45 tabs 1RF Coding Level of Care Code Est Pt Level 4 (10848) Diagnoses Decreased appetite R63.0 Physical deconditioning R53.81 Recurrent major depressive disorder, remission status unspecified F33.9 Active/Remission status: remission status unspecified Dysphagia R13.10 Additional Codes NESHA-7 Assessment Billing - NESHA-7 Assessment Tool: NESHA-7 Assessment 92107 ([id number])
== END 2023-06-03 17:02 | disposition home or self-care (01) ==
PROVIDERS: PCP Internal Medicine; Visit Provider Nurse Practitioner Family
DX: R63.0 Anorexia (principal); R53.81 Other malaise; F33.9 Major depressive disorder, recurrent, unspecified; R13.10 Dysphagia, unspecified; Z85.46 Personal history of malignant neoplasm of prostate
CPT/HCPCS: 99214

== ENCOUNTER 2023-06-05 10:17 | Outpatient (AMB) | payer MEDICARE, SELFPAY ==
[2023-06-05 10:17] VITALS: BMI 18.8
--- NOTE | 2023-06-05 10:17 | A.OFFVIS_ITS ---
Intake Vital Signs 06/05/23 10:17 Height 5 ft 10 in Weight 131 lb BMI 18.8 Intake Visit Reasons: Follow Up 05/16 US Intake Note: follow up US 05/16/23, which was positive for DVT Right LE. Pt states that he has bilateral LE weakness and has fallen twice, most recently last night and was on the floor for the whole nifgt until his daughter found him this morning. Before the US his only complaint was LE swelling, cramping, weakness and discoloration in bilateral LE Accompanied by: Friend Allergies No Known Allergies Allergy (Mild, Verified 06/05/23 10:26) N/A HPI Follow Up 05/16 US HPI Details Very frail 88-year-old gentleman presents for follow-up regarding swollen lower extremities. He actually had an attempt at a venous insufficiency test. Was found to have a DVT of the right lower extremity in particular at the popliteal region. He was subsequently sent to the emergency room and started on Eliquis. Of note he continues to decline functionally and has lost weight. He is having difficulty ambulating and has had 2-3 falls most recently. Now presents to us for vascular follow-up. [facility] Medical History Normocytic anemia Hyponatremia Low sodium levels Hypercholesterolemia Prostate cancer Osteoarthritis, shoulder Venous insufficiency COVID-19 virus infection Surgical History History of radical prostatectomy Erectile dysfunction following urethral surgery Family History Father Diabetes Social History Household Members: Children Household Members Other:: daughter Housing: House Do you presently have visiting nurse or other home services: Yes ([facility]) Alcohol intake: never Patient Tobacco Use Status: Never used Tobacco Smoked in Last 30 Days: No e-Cigarette/Vaping Use: Never Used Second Hand Smoke Exposure: No Use of substances other than those prescribed or required for medical reasons: No Advance Directives: Yes Advance Directives on File: Yes Advance Directives Date on File: 08/24/21 service: No Current occupational status: retired 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, 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 [employer] Cognitive needs: Yes (cane) Hearing needs: No Vision needs: Yes Review of Systems Const Reports as per HPI ENT Reports no additional complaints Card Denies chest pain, Denies chest pain at rest and Denies chest pain with activity Resp Denies chest congestion and Denies cough GI Reports no additional complaints Musc Details: pain over varicosities, aching of lower extremities, swelling, cramping, heaviness and tiredness, itching Denies abnormal gait Skin/Breast Reports pruritus and Denies wounds Neuro Reports no additional complaints and Denies abnormal gait Psych Denies no additional complaints Physical Exam Vital Signs: BMI result Body Mass Index 18.8 Const General: cooperative, healthy appearing and comfortable Orientation/consciousness: oriented to person, oriented to place and oriented to time Neck Carotids: no bruits Chest Chest palpation & inspection: normal inspection of the chest and normal palpation of entire chest wall Resp Effort & Inspection: normal respiratory effort and able to speak in complete sentences Cardio Rate: regular rate Heart sounds: S1 normal heart sound present and S2 normal heart sound present Peripheral pulses: Peripheral pulses 2+ throughout GI Inspection: Yes normal to inspection Skin Other: +2 edema, General skin exam: dry skin Neuro General: oriented to person, oriented to place and oriented to time Extrem Right lower extremity: full ROM, normal capillary refill and edema Left lower extremity: full ROM, normal capillary refill and edema Psych Mental Status: mental status grossly normal Results Reviewed Results Reviewed: Ultrasound from 05/16/2023 demonstrates nonocclusive thrombus of right popliteal vein written report and images were reviewed Assessment & Plan Assessment & Plan (1) DVT (deep venous thrombosis): Code(s): I82.409 - Acute embolism and thrombosis of unspecified deep veins of unspecified lower extremity Qualifiers: DVT location: lower extremity Affected thrombotic vein of extremity: popliteal Chronicity: acute Laterality: right Qualified Code(s): I82.431 - Acute embolism and thrombosis of right popliteal vein Plan: In short patient have has right lower extremity DVT. Unclear if this is new or chronic but was started on anticoagulants. At the current time he has multiple comorbidities and is extremely frail. I do not think he is a candidate for any endovascular intervention. Can follow-up for with primary care for a nticoagulants. From our perspective we did discuss continued conservative measures including compression elevation and exercise. Will follow up with us as needed. Thank you for allowing us to assist in his care. Coding Level of Care Code Est Pt Level 4 (94409) Diagnoses Acute deep vein thrombosis (DVT) of popliteal vein of right lower extremity I82.431 DVT location: lower extremity Affected thrombotic vein of extremity: popliteal Chronicity: acute Laterality: right
== END 2023-06-05 11:02 | disposition home or self-care (01) ==
PROVIDERS: PCP Internal Medicine; Visit Provider Surgery Vascular Surgery
DX: I82.431 Acute embolism and thrombosis of right popliteal vein (principal)
CPT/HCPCS: 99214

== ENCOUNTER 2023-06-05 13:45 | Inpatient (IN) | payer MEDICARE, SELFPAY ==
--- NOTE | ~2023-06-05 | CT_ITS ---
EXAMINATION: CT HEAD WITHOUT CONTRAST (STROKE PROTOCOL) CLINICAL INFORMATION: Stroke protocol. Left-sided weakness. COMPARISON: 01/11/2022 TECHNIQUE: Contiguous axial imaging was performed from the skull base to vertex without intravenous administration of contrast. This CT examination was performed using dose optimization techniques as appropriate, variously including the following: *Automated exposure control *Adjustment of mA and/or kV according to patient size (this includes techniques or standardized protocols for targeted exams where dose is matched to indication/reason for exam; i.e. extremities or head) *Use of iterative reconstruction technique DLP: 699 mGy-cm FINDINGS: There is cerebral volume loss with prominence of the lateral and the third ventricles. The cortical sulci are widened appropriately. The fourth ventricle and basal cisterns are normally outlined. There is moderate bilateral periventricular and central white matter diminished attenuation. There is no acute territorial defect, hemorrhage or midline shift. Calvarium: Intact. Maxillofacial sinuses and mastoids: There is inferior maxillary sinus mucosal thickening. The remaining visualized maxillofacial sinuses and mastoids are clear. CT/CT head for stroke IMPRESSION: Cerebral volume loss and moderate bilateral periventricular and central white matter diminished attenuation which is nonspecific but likely to represent microvascular disease. There is no acute intracranial abnormality. This critical result was discussed with Dr. Loyd at 2:29 PM hours on 06/05/2023. It was ascertained that the content and urgency of the report was understood at the time of direct communication.
--- NOTE | ~2023-06-05 | CT_ITS ---
EXAMINATION: CT ABDOMEN AND PELVIS WITHOUT CONTRAST CLINICAL INFORMATION: Follow-up pelvic abscess COMPARISON: Previous CT of the abdomen and pelvis June 10 and 06/12/2023 TECHNIQUE: Multidetector volumetric imaging was performed from the superior aspect of the liver through the pubic symphysis. Sagittal and coronal reformatted images were obtained on the technologist's workstation. This CT examination was performed using dose optimization techniques as appropriate, variously including the following: *Automated exposure control *Adjustment of mA and/or kV according to patient size (this includes techniques or standardized protocols for targeted exams where dose is matched to indication/reason for exam; i.e. extremities or head) *Use of iterative reconstruction technique DLP: 379 mGy-cm FINDINGS: LUNG BASES: Small bilateral pleural effusions. Scattered bilateral pleural calcifications. Small pericardial effusion. LIVER, GALLBLADDER, AND BILIARY TREE: Multiple innumerable liver cysts. Fluid collection with thick wall adjacent to the posterior segment of the right lobe of the liver measuring 3 x 4 cm. This is in continuation with a small fluid collection involving the adjacent peritoneal reflection. This may also communicate with a small fluid collection adjacent to the posterior upper pole of the right kidney. This likely represents abscess. This does not appear appreciably changed in size. Normal-appearing gallbladder. No biliary duct dilatation. PANCREAS: Unremarkable. SPLEEN: Unremarkable. ADRENAL GLANDS: Unremarkable. KIDNEYS AND URETERS: Multiple perinephric small fluid collections. The largest is exophytic to the posterior upper pole of the right kidney measuring 3 cm and may communicate with the fluid collection adjacent to the right lobe of the liver. There are additional smaller areas of increased soft tissue in the inferior right perinephric space question representing small abscesses as well. These are all subcentimeter in size, clustered and do not appear appreciably changed. Left renal cyst. No imaging follow-up recommended. Pigtail drainage catheter in the right psoas collection. No residual collection seen. BLADDER: Unremarkable. GASTROINTESTINAL TRACT: Diverticulosis of the colon and constipation. The stomach is slightly distended and filled with food. ABDOMINAL WALL: No significant hernia is appreciated. Ranson for penile pump deep to the right anterior abdominal wall. No hernia. LYMPH NODES: Normal. VASCULAR: Atherosclerotic disease. No aneurysm. PELVIC VISCERA: The prostate gland appears to have been removed. Surgical clips in the pelvis. No pelvic mass. OSSEOUS STRUCTURES: Degenerative changes of the spine and hip joints. CT/CT abdomen pelvis wo IV con IMPRESSION: Interval decrease in right psoas abscess. No residual fluid collection seen. Smaller fluid collections adjacent to the posterior segment of the right lobe of the liver and right kidney appear unchanged. Fleischner guidelines were followed.
--- NOTE | ~2023-06-05 | CT_ITS ---
EXAMINATION: CT ABDOMEN AND PELVIS WITH CONTRAST CLINICAL INFORMATION: Leukocytosis COMPARISON: CT abdomen pelvis 08/23/2021 TECHNIQUE: Multidetector volumetric images were obtained from the superior aspect of the liver through the pubic symphysis following administration 85 mL of Omnipaque 350 intravenous contrast. Sagittal and coronal reformatted images were obtained on the technologist's workstation. Oral contrast: No This CT examination was performed using dose optimization techniques as appropriate, variously including the following: *Automated exposure control *Adjustment of mA and/or kV according to patient size (this includes techniques or standardized protocols for targeted exams where dose is matched to indication/reason for exam; i.e. extremities or head) *Use of iterative reconstruction technique DLP: 324 mGy-cm FINDINGS: LUNG BASES: There is right lower lobe atelectasis and a new small pleural effusion when compared to the prior study. Calcified pleural plaques are again noted bilaterally. No suspicious lung masses. There is extensive coronary calcium present. LIVER, GALLBLADDER, AND BILIARY TREE: The liver is normal in size, shape, and attenuation. Again seen are innumerable hepatic cysts. No worrisome solid focal hepatic lesion or biliary ductal dilatation is present. The gallbladder wall contains a tiny area of calcification or possibly a small gallstone but is unchanged compared to prior without pericholecystic inflammatory changes. PANCREAS: Unremarkable. SPLEEN: Unremarkable. ADRENAL GLANDS: Unremarkable. KIDNEYS AND URETERS: The kidneys are normal in size, shape, and attenuation. Please see discussion below regarding right perinephric collection. Multiple benign Bosniak class I renal cysts are noted which require no additional imaging or follow-up. No suspicious solid renal masses are seen. No hydronephrosis, hydroureter, or calculi seen. No perinephric stranding. BLADDER: Nearly empty and difficult to evaluate GASTROINTESTINAL TRACT: The small and large bowel are unremarkable. The appendix is not seen but there is no evidence of appendicitis. ABDOMINAL WALL: A penile prosthesis is present with the reservoir seen in the right rectus muscle. There is mild anasarca. RETROPERITONEUM: There is a large right iliopsoas collection present measuring 17.5 x 6.5 x 8.1 cm consistent with a iliopsoas abscess. There is also a similar-appearing right perinephric collection measuring 5.7 x 3.3 x 4.8 cm which extends towards the liver and in the posterolateral abdominal wall. No free intraperitoneal fluid. LYMPH NODES: No retroperitoneal lymphadenopathy. VASCULAR: Unremarkable. PELVIC VISCERA: Status post prostatectomy with surgical clips. OSSEOUS STRUCTURES: Degenerative changes seen from L4 through S1. CT/CT abdomen pelvis w IV con IMPRESSION: 1. Large right iliopsoas collection consistent with iliopsoas abscess. 2. There is also a similar-appearing right perinephric collection measuring 5.7 x 3.3 x 4.8 cm which extends towards the liver and in the posterolateral abdominal wall. 3. New small right pleural effusion with right lower lobe atelectasis. 4. Other incidental findings as described above including calcified pleural plaques, hepatic and renal cysts which need no follow-up, penile prosthesis, prostatectomy and degenerative changes in the spine. Fleischner guidelines were followed. This critical result was discussed with Lyla Andrew MD at 12:05 PM on 06/11/2023 and it was ascertained that the content and urgency of the report was understood at the time of direct communication.
--- NOTE | ~2023-06-05 | CT_ITS ---
History: 88-year-old male with a right retroperitoneal abscess. Procedure performed: CT-guided abscess drainage Stuffing Machine Operator: Mckayla Flores MD FSIR Anesthesia: IV moderate sedation with intravenous Fentanyl and Versed was administered under my direct supervision with continuous physiologic monitoring for a total of 30 minutes. 10 mL of 1% lidocaine was also administered for local anesthesia Specimen: 10 mL of pus was sent to the laboratory for analysis Drain: 8 [place] pigtail catheter Estimated blood loss: Minimal Consultations: None Procedure in detail: Informed and written consent was obtained. The patient was positioned prone on the CT examination table. Preliminary CT scan demonstrated an abscess within the right retroperitoneum. The overlying skin was prepped and draped after marking the site. 1% lidocaine was injected subcutaneously and extended to the deep soft tissues. A small incision was made in the skin with a #11 blade. A Yueh needle catheter was then advanced under continuous CT guidance into the abscess. An Amplatz wire was then threaded into the abscess over which dilatation was performed until an 8 [place] pigtail catheter could be placed. A specimen was obtained and sent to the laboratory for analysis. The drainage catheter was connected to ESTEFANI suction and sutured at the exit site with 2-0 Prolene suture. A sterile dressing was applied. Summary: Successful CT-guided drainage of an abscess as described above.
--- NOTE | ~2023-06-05 | CT_ITS ---
EXAMINATION: CTA head and neck stroke code CLINICAL INFORMATION: Left-sided weakness COMPARISON: [facility] CT head as well as CT head on 01/11/2022. TECHNIQUE: Test bolus sequences followed by intravenous administration 70 mL of Omnipaque 350. Helical imaging was performed in the axial plane from the skull base to the thoracic inlet. Delayed postcontrast imaging of the head was also performed. The data was processed at the surgical technologist workstation for generation of MIP sequences. Angled MIPs and volume rendered reformatted images were also generated at an offline 3D workstation. Stenoses are assessed in accordance with NASCET criteria unless otherwise indicated. This CT examination was performed using dose optimization techniques as appropriate, variously including the following: *Automated exposure control *Adjustment of mA and/or kV according to patient size (this includes techniques or standardized protocols for targeted exams where dose is matched to indication/reason for exam; i.e. extremities or head) *Use of iterative reconstruction technique DLP: 1530.39 mGy-cm FINDINGS: CTA NECK: Common origin of the innominate and left common carotid artery, normal variant. The innominate and bilateral subclavian arteries are patent. The origin and cervical segments of the common carotid arteries are patent bilaterally. The common carotid artery bifurcations demonstrate mural calcifications extending into the proximal segments of the cervical internal carotid arteries without significant stenosis. The remaining segments of the cervical internal carotid arteries are patent bilaterally. Nondominant right vertebral artery. The origins and cervical segments of the vertebral arteries are patent bilaterally. No hemodynamically significant stenosis, dissection, or aneurysm. The visualized branches of the external carotid arteries are unremarkable. CTA HEAD: Atherosclerotic calcifications of the bilateral carotid siphons. Anterior circulation: The petrous, cavernous, and clinoid segments of the internal carotid arteries are patent bilaterally. The major branches of the anterior and middle cerebral arteries as well as the anterior communicating artery complex are patent. No large vessel occlusion, saccular aneurysm, or dissection. Posterior circulation: Hypoplastic right intracranial vertebral artery from the level of right PICA takeoff to distal segments. The left intracranial vertebral arteries normal in caliber and patent. The basilar artery is normal in course and caliber. The posterior cerebral and superior cerebellar arteries arise normally from the basilar summit. No aneurysm. On delayed images, there is normal opacification of the venous structures. No filling defect. No abnormal brain enhancement. Soft tissues: There is a subcentimeter hypoattenuating on doing the left thyroid lobe. Otherwise, no neck mass or cervical lymphadenopathy. Lungs: Clear. Bones: No acute osseous abnormality. No lytic or blastic osseous lesions. Multilevel degenerative changes of the visualized spine. CT/CT angio head neck stroke IMPRESSION: CTA neck demonstrates no hemodynamically significant stenosis, dissection, or aneurysm. CTA head demonstrates no large vessel occlusion, saccular aneurysm, or dissection.
--- NOTE | ~2023-06-05 | XR_ITS ---
EXAMINATION: XR CHEST CLINICAL INFORMATION: Reason for Exam sob COMPARISON: Chest radiograph 05/29/2021, CT chest 09/24/2022 TECHNIQUE: One view of the chest FINDINGS: Lines and tubes: EKG leads overlie the patient. Multiple calcified pleural plaques again seen. No new focal consolidation. No pleural effusion. No pneumothorax. Unchanged cardiomediastinal silhouette. XR/XR chest 1V IMPRESSION: 1. No acute cardiopulmonary findings. 2. 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
--- NOTE | ~2023-06-05 | MR_ITS ---
EXAMINATION: MR BRAIN WITHOUT CONTRAST CLINICAL INFORMATION: Ataxia. COMPARISON: Head CT dated 06/05/2023. TECHNIQUE: Multiplanar, multisequence imaging of the brain was performed without contrast. FINDINGS: No diffusion abnormalities are identified to suggest an acute infarct. No mass effect or midline shift is seen. Moderate chronic white matter microangiopathic changes are noted. There is moderate to severe diffuse brain parenchymal volume loss with ex vacuo dilatation of the ventricles. No imaging findings suspicious for hydrocephalus. No extra-axial fluid collections are seen. The cerebellum is normal. There are mild chronic small vessel ischemic changes in the brainstem as well. The gradient refocused acquisition is normal. The craniovertebral junction, marrow signal, and remaining midline structures are normal. The major intracranial flow voids at the level of the [place] are preserved. The dural venous sinus flow voids are maintained. The mastoid air cells are well aerated. There is mild mucosal thickening dependently in the left maxillary sinus. A small proteinaceous retention cyst is also visible in the right maxillary antrum. MR/MR head/brain wo con IMPRESSION: No acute intracranial process. Moderate chronic white matter microangiopathy and moderate to severe diffuse brain parenchymal volume loss.
--- NOTE | 2023-06-05 13:52 | ECG_ITS ---
Test Reason : AMS Blood Pressure : / mmHG Vent. Rate : 073 BPM Atrial Rate : 073 BPM P-R Int : 176 ms QRS Dur : 100 ms QT Int : 402 ms P-R-T Axes : 064 031 059 degrees QTc Int : 442 ms Normal sinus rhythm Normal ECG When compared with ECG of 21-FEB-2023 19:58, No significant change was found Referred By: Fang Loyd Electronically Signed By:AMERICA REECE
--- NOTE | 2023-06-05 13:56 | ED_ITS ---
HPI - Neuro Symptoms/Deficit General Chief Complaint: Stroke Stated Complaint: STROKE ALERT,LKWT T-2,FOUND SHAN,HIT HEAD,SLURR Time Seen by Provider: 06/05/23 13:51 History of Present Illness HPI Narrative: Patient is an 88-year-old male with a history of SIADH, history of peripheral vascular disease, history of DVT currently on Eliquis presented today with having left-sided weakness that is more pronounced over the last 2 days. Patient fell trying to get up a slit was on the ground. Complaining of left- sided slight weakness. There is no change in speech. There is no fever. No nausea no vomiting. Patient is from home. Related Data Home Medications Medication Instructions Recorded Confirmed cholecalciferol (vitamin D3) 25 25 mcg PO DAILY 01/17/21 06/03/23 mcg (1,000 unit) capsule meloxicam 15 mg tablet 15 mg PO DAILY 04/25/22 06/03/23 ascorbic acid (vitamin C) 1,000 mg 1,000 mg PO DAILY 02/22/23 06/03/23 tablet,extended release cyanocobalamin (vitamin B-12) 1,000 mcg PO DAILY 02/22/23 06/03/23 1,000 mcg tablet Previous Rx's Medication Instructions Recorded aspirin 81 mg tablet,delayed 81 mg PO DAILY #14 tabs 11/15/20 release (Adult Low Dose Aspirin) comp.stocking,knee,long,medium #2 ea 08/13/22 methylcellulose (laxative) 500 mg 500 mg PO DAILY #90 tabs 03/28/23 tablet (Citrucel) urea (bulk) 100 % powder 15 ea PO DAILY 30 days #1,000 grams 04/21/23 Lactobacillus rhamnosus GG 15 1 cap PO DAILY #90 caps 04/23/23 billion cell sprinkle capsule (Culturelle) polyethylene glycol 3350 17 17 g PO DAILY #510 grams 04/23/23 gram/dose oral powder (Miralax) apixaban 5 mg (74 tabs) tablets in 5 mg PO BID #74 ea 05/16/23 a dose pack (Eliquis DVT-PE Treat 30D Start) cyproheptadine 4 mg tablet 4 mg PO BEDTIME #30 tabs 05/19/23 albuterol sulfate 90 mcg/actuation 2 puff inhalation Q4-6H PRN 05/27/23 aerosol inhaler (Ventolin HFA) shortness of breath or wheezing #8.5 grams chair, wheel (Wheel chair) #1 ea 05/29/23 paroxetine HCl 20 mg tablet 20 mg PO BEDTIME #30 tabs 06/03/23 rosuvastatin 40 mg tablet 40 mg PO DAILY #30 tabs 06/04/23 Allergies Allergy/AdvReac Type Severity Reaction Status Date / Time No Known Allergies Allergy Mild N/A Verified 06/05/23 10:26 Review of Systems 2 Review of Systems: Mom being left-sided weakness no change in speech. No fever no chills. No coughing Yes all other systems are reviewed and are negative PMFSH Past Medical History Attestation statement: The following information was validated with the patient. Medical History Normocytic anemia Hyponatremia Low sodium levels Hypercholesterolemia Prostate cancer Osteoarthritis, shoulder Venous insufficiency COVID-19 virus infection Surgical History History of radical prostatectomy Erectile dysfunction following urethral surgery Family History Family History Father Diabetes Social History Social History Household Members: Children Household Members Other:: daughter Housing: House Do you presently have visiting nurse or other home services: Yes ([facility]) Alcohol intake: never Patient Tobacco Use Status: Never used Tobacco Smoked in Last 30 Days: No e-Cigarette/Vaping Use: Never Used Second Hand Smoke Exposure: No Use of substances other than those prescribed or required for medical reasons: No Advance Directives: Yes Advance Directives on File: Yes Advance Directives Date on File: 08/24/21 service: No Current occupational status: retired 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 Oriented X3. No acute distress. Eyes: Pupils equal, round and reactive to light. ENT: Pharynx normal. Neck: Normal inspection. Neck supple. No lymph nodes noted. No crepitus CVS: Normal heart rate and rhythm. Pulses normal. Normal S1 and S2 Respiratory: No respiratory distress. Breath sounds normal. No Wheezing. No rales Abdomen: Soft and nontender. No rigidity. No distention. good BS x4 Skin: Skin warm and dry. Normal skin color. Normal skin turgor. Extremities: No lower extremity edema. Neurovascular intact to all extremities. No Lacerations. No Rash Neuro: Oriented X 3. Slight weakness noted on the left side. Good hand grasp bilaterally. Able to lift up both hands against gravity. Able to lift up both legs against gravity. Medications Administered Discontinued Medications Generic Name Dose Route Start Last Admin Trade Name Freq PRN Reason Stop Dose Admin Iohexol 70 ml 06/05/23 14:04 06/05/23 14:05 Iohexol 350 Mg/Ml 100 Ml Infus..Btl IV 06/05/23 14:05 70 ml ONCE ONE Administration Medical Decision Making Medical Decision Making MDM Narrative: Patient's sugar over 100 there is no evidence for hypoglycemia. Has subjective weakness on the left side. Patient unable to get up was on the ground all night. Will check patient's CPK. CT scan of the head CTA of the head and neck being ordered. Previous baseline labs reviewed. Creatinine has been normal. Labs being ordered. Will monitor very carefully. Patient initially reported by EMS to have left-sided weakness on my exam patient NIH stroke scale was 0. Moving all extremities. CT scan of the head was grossly negative for any acute evidence of bleeding. CTA was negative for any large vessel occlusion. Patient's urine showed no evidence of UTI. Troponin is normal. Patient's TSH was normal no evidence of hypothyroid. Question patient's symptoms secondary to a TIA. Will admit patient for observation overnight. In stable condition. Differential Diagnosis Differential Diagnoses: The differential diagnosis associated with the presentation includes Hypoglycemia, intracranial bleed, infection, rhabdo, stroke, ACS Lab Data 06/05/23 14:45 06/05/23 14:45 Labs: Lab Results 06/05/23 06/05/23 06/05/23 Range/Units 14:01 14:45 14:45 WBC 19.6 H (4.8-10.8) X10*3/uL RBC 3.42 L (4.60-5.80) X10*6/uL Hgb 10.2 L (14.0-18.0) g/dl Hct 31.2 L (42.0-52.0) % MCV 91.2 (80.0-98.0) fL MCH 29.8 (27.0-33.0) pg MCHC 32.7 (31.0-36.0) g/dl RDW 15.4 (11.0-16.0) % Plt Count 338 (160-400) X10*3/uL MPV 8.0 L (9.4-12.4) fL Immature Gran % (Auto) 1.0 H (0.0-0.4) % Neut % (Auto) 86.6 H (45-73) % Lymph % (Auto) 5.5 L (20-40) % [place] % (Auto) 6.7 (2-11) % Eos % (Auto) 0.0 (0-4) % Baso % (Auto) 0.2 (0-2) % Lymph # (Auto) 1.1 L (1.2-4.9) X10*3/uL [place] # (Auto) 1.3 H (0.1-1.2) X10*3/uL Eos # (Auto) 0.0 (0.0-0.4) X10*3/uL Baso # (Auto) 0.0 (0.0-0.2) X10*3/uL Abs Immat Gran (auto) 0.19 H (0.00-0.03) X10*3/uL Absolute Neuts (auto) 17.0 H (2.0-8.3) x10*3/uL Absolute Nucleated RBC 0.000 (0.0-0.012) X10*3/uL Nucleated RBC % (auto) 0.0 (0.0-0.2) /100WBC PT 20.9 H D (11.1-13.3) SEC INR 1.7 H (0.9-1.1) APTT 28.9 (26.0-36.4) SEC Sodium 130 L (135-145) mmol/L Potassium 3.2 L (3.3-5.1) mmol/L Chloride 96 (96-108) mmol/L Carbon Dioxide 26 (22-29) mmol/L Anion Gap 11 L (12-20) BUN 11 (9-16) mg/dL Creatinine 0.67 (0.5-1.4) mg/dL Estim Creat Clear Calc 68.5 Estimated GFR > 60 POC Glucose 112 (60-115) mg/dL Random Glucose 104 Cancelled (60-115) mg/dL Calcium 9.5 D (8.4-10.2) mg/dL Phosphorus 2.2 L (2.7-4.5) mg/dL Magnesium 1.9 (1.6-2.6) mg/dL Total Creatine Kinase 15 L (38-174) U/L Troponin I High Sens (<3.5-35.0) ng/L TSH (0.32-4.0) uIU/mL Urine Color Urine Appearance Urine pH (5.0-9.0) Ur Specific [place] (1.005-1.025) Urine Protein (Neg-Trace) mg/dL Urine Glucose (UA) (Negative) mg/dL Urine Ketones (Negative) mg/dL Urine Blood (Negative) Urine Nitrite (Negative) Ur Leukocyte Esterase (Negative) Urine RBC (0-2) /HPF Urine WBC (0-5) /HPF Ur Squamous Epith Cells (0-2) /HPF Urine Bacteria (None Seen) Hyaline Casts (0-2) /LPF 06/05/23 06/05/23 Range/Units 14:45 14:48 WBC (4.8-10.8) X10*3/uL RBC (4.60-5.80) X10*6/uL Hgb (14.0-18.0) g/dl Hct (42.0-52.0) % MCV (80.0-98.0) fL MCH (27.0-33.0) pg MCHC (31.0-36.0) g/dl RDW (11.0-16.0) % Plt Count (160-400) X10*3/uL MPV (9.4-12.4) fL Immature Gran % (Auto) (0.0-0.4) % Neut % (Auto) (45-73) % Lymph % (Auto) (20-40) % [place] % (Auto) (2-11) % Eos % (Auto) (0-4) % Baso % (Auto) (0-2) % Lymph # (Auto) (1.2-4.9) X10*3/uL [place] # (Auto) (0.1-1.2) X10*3/uL Eos # (Auto) (0.0-0.4) X10*3/uL Baso # (Auto) (0.0-0.2) X10*3/uL Abs Immat Gran (auto) (0.00-0.03) X10*3/uL Absolute Neuts (auto) (2.0-8.3) x10*3/uL Absolute Nucleated RBC (0.0-0.012) X10*3/uL Nucleated RBC % (auto) (0.0-0.2) /100WBC PT (11.1-13.3) SEC INR (0.9-1.1) APTT (26.0-36.4) SEC Sodium (135-145) mmol/L Potassium (3.3-5.1) mmol/L Chloride (96-108) mmol/L Carbon Dioxide (22-29) mmol/L Anion Gap (12-20) BUN (9-16) mg/dL Creatinine (0.5-1.4) mg/dL Estim Creat Clear Calc Estimated GFR POC Glucose (60-115) mg/dL Random Glucose (60-115) mg/dL Calcium (8.4-10.2) mg/dL Phosphorus (2.7-4.5) mg/dL Magnesium (1.6-2.6) mg/dL Total Creatine Kinase Cancelled (38-174) U/L Troponin I High Sens < 2.7 (<3.5-35.0) ng/L TSH 0.84 (0.32-4.0) uIU/mL Urine Color Yellow Urine Appearance Clear Urine pH 6.5 (5.0-9.0) Ur Specific [place] >= 1.030 H (1.005-1.025) Urine Protein 100 (2+) H (Neg-Trace) mg/dL Urine Glucose (UA) Negative (Negative) mg/dL Urine Ketones Negative (Negative) mg/dL Urine Blood Negative (Negative) Urine Nitrite Negative (Negative) Ur Leukocyte Esterase Negative (Negative) Urine RBC 3-5 H (0-2) /HPF Urine WBC 0-5 (0-5) /HPF Ur Squamous Epith Cells 0-2 (0-2) /HPF Urine Bacteria None Seen (None Seen) Hyaline Casts 0-2 (0-2) /LPF NIH Stroke Scale Internal: Initial- Upon Arrival Time: 14:03 Level of Consciousness: Alert Level of Consciousness Questions: Answers both questions correctly Level of Consciousness Commands: Performs both tasks correctly Best Gaze: Normal Visual: No visual loss Facial Palsy: Normal Motor Arm (Right): No drift Motor Arm (Left): No drift Motor Leg (Right): No drift Motor Leg (Left): No drift Limb Ataxia: Absent Sensory: Normal Best Language: No aphasia Dysarthia: Normal Extinction and Inattention: No abnormality Score: 0 Discharge Plan Discharge Clinical Impression: Brain TIA Patient Disposition: Admitted As Inpatient Prescriptions: No Action aspirin [Adult Low Dose Aspirin] 81 mg tablet,delayed release (DR/EC) 81 mg PO DAILY Qty: 14 0RF urea (bulk) 100 % powder 15 ea PO DAILY 30 Days Qty: 1000 0RF cyproheptadine 4 mg tablet 4 mg PO BEDTIME Qty: 30 0RF (DME) Wheel chair Kit See Rx Instructions .Route Qty: 1 0RF Rx Instructions: 16 inch with elevating leg rest (manual) rosuvastatin 40 mg tablet 40 mg PO DAILY Qty: 30 3RF Eliquis DVT-PE Treat 30D Start 5 mg (74 tabs) tablets,dose pack 5 mg PO BID Qty: 74 0RF cyanocobalamin (vitamin B-12) 1,000 mcg Tablet 1,000 mcg PO DAILY ascorbic acid (vitamin C) 1,000 mg tablet extended release 1,000 mg PO DAILY cholecalciferol (vitamin D3) 25 mcg (1,000 unit) capsule 25 mcg PO DAILY (DME) comp.stocking,knee,long,medium Misc See Rx Instructions .Route Qty: 2 0RF Rx Instructions: As directed albuterol sulfate [Ventolin HFA] 90 mcg/actuation HFA aerosol inhaler 2 puff inhalation Q4-6H PRN (Reason: shortness of breath or wheezing) Qty: 8.5 0RF meloxicam 15 mg tablet 15 mg PO DAILY paroxetine HCl 20 mg tablet 20 mg PO BEDTIME Qty: 30 2RF Citrucel 500 mg tablet 500 mg PO DAILY Qty: 90 2RF Rx Instructions: take it with full glass of water polyethylene glycol 3350 [Miralax] 17 gram/dose powder 17 g PO DAILY Qty: 510 2RF Culturelle 15 billion cell capsule, sprinkle 1 cap PO DAILY Qty: 90 2RF
--- NOTE | 2023-06-05 14:03 | MHC.EDTECH ---
POC INR testing not done per MD order, Dr. Loyd
[2023-06-05 14:05] LABS: Glucose, Whole Blood 112 mg/dL (60-115)
[2023-06-05] MEDS: iohexoL 350 MG/ML 100 ML INFUS..BTL 70 ML IV (14:05)
[2023-06-05 14:11] VITALS: BP 121/68; BP 162/52; PULSE 70; PULSE 77; RESP 18; TEMP 37.4; O2SAT 100; BMI 19.7
--- NOTE | 2023-06-05 14:30 | PC.NURSE ---
Addendum entered by Carline Hines 06/05/23 16:07: pt neuro assessment in tact. Original Note: this RN assumed care. pt brought in by ambulance. pt fiund at home after a fall last night around 2300 pt was down and unable to get up for 10 hours, pt visiting nurse found pt and called for pt. pt reports head strike and blood thinner but denies LOC. Pt had increased left sided weakness. pt able to state where is is, what year it is and who the president is. pt nureo positive, and even smile noted. pt normal sinus on tele between 77-80. pt o2 sat between 98-100. pt o2 sat better read on pt ear.
[2023-06-05 14:33] VITALS: BP 128/67; PULSE 75; RESP 18; O2SAT 100
[2023-06-05 14:54] LABS: MANUAL DIFF FLAG NO
[2023-06-05 14:58] LABS: Appearance Urine Clear; Color Urine Yellow; Glucose Urine UA Negative (Negative); Leukocyte Esterase Urine Negative (Negative); Nitrite Urine Negative (Negative); PH 6.5 (5.0-9.0); Specific Gravity - Urine >= 1.030 (1.005-1.025); UMIC TRIGGER UACC YES; Urine Blood Negative (Negative); Urine Ketones Negative (Negative); Urine Protein 100 (2+) mg/dL (Neg-Trace)
[2023-06-05 14:58] LABS: Basophils Percent Auto 0.2 % (0-2); Hematocrit 31.2 % (42.0-52.0); Hemoglobin 10.2 g/dl (14.0-18.0); Imm Gran Abs Auto 0.19 X10*3/uL (0.00-0.03); Lymphocytes Absolute Auto 1.1 X10*3/uL (1.2-4.9); Lymphocytes Percent Auto 5.5 % (20-40); Mean Corpuscular HGB Conc 32.7 g/dl (31.0-36.0); Mean Corpuscular Hemoglobin 29.8 pg (27.0-33.0); Mean Corpuscular Volume 91.2 fL (80.0-98.0); Monocytes Absolute Auto 1.3 X10*3/uL (0.1-1.2); Monocytes Percent Auto 6.7 % (2-11); Neutrophils Percent Auto 86.6 % (45-73); Platelet Count 338 X10*3/uL (160-400); Red Blood Count 3.42 X10*6/uL (4.60-5.80); Red Cell Distribution Width 15.4 % (11.0-16.0); White Blood Count 19.6 X10*3/uL (4.8-10.8)
[2023-06-05 15:04] LABS: INTERNATIONAL NORM RATIO 1.7 (0.9-1.1); Prothrombin Time 20.9 SEC (11.1-13.3)
[2023-06-05 15:07] LABS: Partial Thromboplastin Time 28.9 SEC (26.0-36.4)
[2023-06-05 15:07] LABS: Bacteria Urine None Seen (None Seen); Hyaline Casts Urine 0-2 /LPF (0-2); Squamous Epithelial Cell Urine 0-2 /HPF (0-2); WBC Urine 0-5 /HPF (0-5)
[2023-06-05 15:19] LABS: Anion Gap 11 (12-20); Blood Urea Nitrogen 11 mg/dL (9-16); Calcium 9.5 mg/dL (8.4-10.2); Carbon Dioxide 26 mmol/L (22-29); Chloride 96 mmol/L (96-108); Creatinine Clr Calc Pharmacy 68.5; Estimated Glomerular Filt Rate > 60; Glucose Random 104 mg/dL (60-115); Magnesium 1.9 mg/dL (1.6-2.6); Phosphorus 2.2 mg/dL (2.7-4.5); Potassium 3.2 mmol/L (3.3-5.1); Sodium 130 mmol/L (135-145)
[2023-06-05 15:26] LABS: Troponin-I High Sensitivity < 2.7 ng/L (<3.5-35.0)
[2023-06-05 15:33] LABS: Thyroid Stimulating Hormone 0.84 uIU/mL (0.32-4.0)
[2023-06-05 17:27] LABS: Stroke Lab Use COMPLETE
[2023-06-05 18:49] VITALS: BP 98/57; PULSE 71; RESP 12; O2SAT 97
--- NOTE | 2023-06-05 19:48 | PC.NURSE ---
care assumed of patient at this time; pt resting in stretcher in no apparent distress; states his left side still feels a little bit weaker however feels better than on arrival.
--- NOTE | 2023-06-05 20:05 | ED_ITS ---
HPI - Neuro Symptoms/Deficit General Chief Complaint: Stroke Stated Complaint: STROKE ALERT,LKWT T-2,FOUND SHAN,HIT HEAD,SLURR Time Seen by Provider: 06/05/23 13:51 Related Data Home Medications Medication Instructions Recorded Confirmed cholecalciferol (vitamin D3) 25 25 mcg PO DAILY 01/17/21 06/03/23 mcg (1,000 unit) capsule meloxicam 15 mg tablet 15 mg PO DAILY 04/25/22 06/03/23 ascorbic acid (vitamin C) 1,000 mg 1,000 mg PO DAILY 02/22/23 06/03/23 tablet,extended release cyanocobalamin (vitamin B-12) 1,000 mcg PO DAILY 02/22/23 06/03/23 1,000 mcg tablet Previous Rx's Medication Instructions Recorded aspirin 81 mg tablet,delayed 81 mg PO DAILY #14 tabs 11/15/20 release (Adult Low Dose Aspirin) comp.stocking,knee,long,medium #2 ea 08/13/22 methylcellulose (laxative) 500 mg 500 mg PO DAILY #90 tabs 03/28/23 tablet (Citrucel) urea (bulk) 100 % powder 15 ea PO DAILY 30 days #1,000 grams 04/21/23 Lactobacillus rhamnosus GG 15 1 cap PO DAILY #90 caps 04/23/23 billion cell sprinkle capsule (Culturelle) polyethylene glycol 3350 17 17 g PO DAILY #510 grams 04/23/23 gram/dose oral powder (Miralax) apixaban 5 mg (74 tabs) tablets in 5 mg PO BID #74 ea 05/16/23 a dose pack (Danger Room Gaming DVT-PE Treat 30D Start) cyproheptadine 4 mg tablet 4 mg PO BEDTIME #30 tabs 05/19/23 albuterol sulfate 90 mcg/actuation 2 puff inhalation Q4-6H PRN 05/27/23 aerosol inhaler (Ventolin HFA) shortness of breath or wheezing #8.5 grams chair, wheel (Wheel chair) #1 ea 05/29/23 paroxetine HCl 20 mg tablet 20 mg PO BEDTIME #30 tabs 06/03/23 rosuvastatin 40 mg tablet 40 mg PO DAILY #30 tabs 06/04/23 Allergies Allergy/AdvReac Type Severity Reaction Status Date / Time No Known Allergies Allergy Mild N/A Verified 06/05/23 10:26 [facility] Past Medical History Medical History Normocytic anemia Hyponatremia Low sodium levels Hypercholesterolemia Prostate cancer Osteoarthritis, shoulder Venous insufficiency COVID-19 virus infection Surgical History History of radical prostatectomy Erectile dysfunction following urethral surgery Family History Family History Father Diabetes Social History Social History Household Members: Children Household Members Other:: daughter Housing: House Do you presently have visiting nurse or other home services: Yes ([facility]) Alcohol intake: never Patient Tobacco Use Status: Never used Tobacco Smoked in Last 30 Days: No e-Cigarette/Vaping Use: Never Used Second Hand Smoke Exposure: No Use of substances other than those prescribed or required for medical reasons: No Advance Directives: Yes Advance Directives on File: Yes Advance Directives Date on File: 08/24/21 service: No Current occupational status: retired 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, 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 [employer] Cognitive needs: Yes (cane) Hearing needs: No Vision needs: Yes Physical Exam 2 Vital Signs: Vital Signs: Last Vital Signs Temp 99.4 F 06/05/23 14:11 Pulse 71 06/05/23 18:49 Resp 12 06/05/23 18:49 BP 98/57 L 06/05/23 18:49 Pulse Ox 97 06/05/23 18:49 O2 Del Method Room Air 06/05/23 18:49 BMI result Body Mass Index 19.7 Medications Administered Discontinued Medications Generic Name Dose Route Start Last Admin Trade Name Freq PRN Reason Stop Dose Admin Iohexol 70 ml 06/05/23 14:04 06/05/23 14:05 Iohexol 350 Mg/Ml 100 Ml Infus..Btl IV 06/05/23 14:05 70 ml ONCE ONE Administration Medical Decision Making Medical Decision Making MDM Narrative: Patient presented today with having Lab Data 06/05/23 14:45 06/05/23 14:45 Labs: Lab Results 06/05/23 06/05/23 06/05/23 Range/Units 14:01 14:45 14:45 WBC 19.6 H (4.8-10.8) X10*3/uL RBC 3.42 L (4.60-5.80) X10*6/uL Hgb 10.2 L (14.0-18.0) g/dl Hct 31.2 L (42.0-52.0) % MCV 91.2 (80.0-98.0) fL MCH 29.8 (27.0-33.0) pg MCHC 32.7 (31.0-36.0) g/dl RDW 15.4 (11.0-16.0) % Plt Count 338 (160-400) X10*3/uL MPV 8.0 L (9.4-12.4) fL Immature Gran % (Auto) 1.0 H (0.0-0.4) % Neut % (Auto) 86.6 H (45-73) % Lymph % (Auto) 5.5 L (20-40) % [place] % (Auto) 6.7 (2-11) % Eos % (Auto) 0.0 (0-4) % Baso % (Auto) 0.2 (0-2) % Lymph # (Auto) 1.1 L (1.2-4.9) X10*3/uL [place] # (Auto) 1.3 H (0.1-1.2) X10*3/uL Eos # (Auto) 0.0 (0.0-0.4) X10*3/uL Baso # (Auto) 0.0 (0.0-0.2) X10*3/uL Abs Immat Gran (auto) 0.19 H (0.00-0.03) X10*3/uL Absolute Neuts (auto) 17.0 H (2.0-8.3) x10*3/uL Absolute Nucleated RBC 0.000 (0.0-0.012) X10*3/uL Nucleated RBC % (auto) 0.0 (0.0-0.2) /100WBC PT 20.9 H D (11.1-13.3) SEC INR 1.7 H (0.9-1.1) APTT 28.9 (26.0-36.4) SEC Sodium 130 L (135-145) mmol/L Potassium 3.2 L (3.3-5.1) mmol/L Chloride 96 (96-108) mmol/L Carbon Dioxide 26 (22-29) mmol/L Anion Gap 11 L (12-20) BUN 11 (9-16) mg/dL Creatinine 0.67 (0.5-1.4) mg/dL Estim Creat Clear Calc 68.5 Estimated GFR > 60 POC Glucose 112 (60-115) mg/dL Random Glucose 104 Cancelled (60-115) mg/dL Calcium 9.5 D (8.4-10.2) mg/dL Phosphorus 2.2 L (2.7-4.5) mg/dL Magnesium 1.9 (1.6-2.6) mg/dL Total Creatine Kinase 15 L (38-174) U/L Troponin I High Sens (<3.5-35.0) ng/L TSH (0.32-4.0) uIU/mL Urine Color Urine Appearance Urine pH (5.0-9.0) Ur Specific [place] (1.005-1.025) Urine Protein (Neg-Trace) mg/dL Urine Glucose (UA) (Negative) mg/dL Urine Ketones (Negative) mg/dL Urine Blood (Negative) Urine Nitrite (Negative) Ur Leukocyte Esterase (Negative) Urine RBC (0-2) /HPF Urine WBC (0-5) /HPF Ur Squamous Epith Cells (0-2) /HPF Urine Bacteria (None Seen) Hyaline Casts (0-2) /LPF 06/05/23 06/05/23 Range/Units 14:45 14:48 WBC (4.8-10.8) X10*3/uL RBC (4.60-5.80) X10*6/uL Hgb (14.0-18.0) g/dl Hct (42.0-52.0) % MCV (80.0-98.0) fL MCH (27.0-33.0) pg MCHC (31.0-36.0) g/dl RDW (11.0-16.0) % Plt Count (160-400) X10*3/uL MPV (9.4-12.4) fL Immature Gran % (Auto) (0.0-0.4) % Neut % (Auto) (45-73) % Lymph % (Auto) (20-40) % [place] % (Auto) (2-11) % Eos % (Auto) (0-4) % Baso % (Auto) (0-2) % Lymph # (Auto) (1.2-4.9) X10*3/uL [place] # (Auto) (0.1-1.2) X10*3/uL Eos # (Auto) (0.0-0.4) X10*3/uL Baso # (Auto) (0.0-0.2) X10*3/uL Abs Immat Gran (auto) (0.00-0.03) X10*3/uL Absolute Neuts (auto) (2.0-8.3) x10*3/uL Absolute Nucleated RBC (0.0-0.012) X10*3/uL Nucleated RBC % (auto) (0.0-0.2) /100WBC PT (11.1-13.3) SEC INR (0.9-1.1) APTT (26.0-36.4) SEC Sodium (135-145) mmol/L Potassium (3.3-5.1) mmol/L Chloride (96-108) mmol/L Carbon Dioxide (22-29) mmol/L Anion Gap (12-20) BUN (9-16) mg/dL Creatinine (0.5-1.4) mg/dL Estim Creat Clear Calc Estimated GFR POC Glucose (60-115) mg/dL Random Glucose (60-115) mg/dL Calcium (8.4-10.2) mg/dL Phosphorus (2.7-4.5) mg/dL Magnesium (1.6-2.6) mg/dL Total Creatine Kinase Cancelled (38-174) U/L Troponin I High Sens < 2.7 (<3.5-35.0) ng/L TSH 0.84 (0.32-4.0) uIU/mL Urine Color Yellow Urine Appearance Clear Urine pH 6.5 (5.0-9.0) Ur Specific [place] >= 1.030 H (1.005-1.025) Urine Protein 100 (2+) H (Neg-Trace) mg/dL Urine Glucose (UA) Negative (Negative) mg/dL Urine Ketones Negative (Negative) mg/dL Urine Blood Negative (Negative) Urine Nitrite Negative (Negative) Ur Leukocyte Esterase Negative (Negative) Urine RBC 3-5 H (0-2) /HPF Urine WBC 0-5 (0-5) /HPF Ur Squamous Epith Cells 0-2 (0-2) /HPF Urine Bacteria None Seen (None Seen) Hyaline Casts 0-2 (0-2) /LPF Discharge Plan Discharge Clinical Impression: Brain TIA Patient Disposition: Admitted As Inpatient
[2023-06-05 21:32] VITALS: BP 121/64; PULSE 70; RESP 12; TEMP 36.5; O2SAT 99
--- NOTE | 2023-06-05 21:46 | PHA.MEDREC ---
Pharmacy Consult ? Medication Reconciliation Pharmacy has completed the medication reconciliation. MED REC COMPLETE USING CLAIM HISTORY AND ELAYNE PEARCE MED LIST FROM 06/03/23
--- NOTE | 2023-06-05 23:57 | P.HPHOSP_ITS ---
History of Present Illness Date of Service: 06/06/23 Chief Complaint: weakness Patient is an 88-year-old male with past medical history of CVA peripheral vascular disease, history prostate cancer status post prostatectomy, venous insufficiency, HLD, normocytic anemia, history of SIADH/hyponatremia comes into the hospital with complaints of weakness. Patient reports that for the past few days has been progressively weaker, and today noticed that he has right-sided weakness. He is also complaining of low appetite. Therefore decided to come to the hospital. Denies any chest pain, no headache , no change in vision, no shortness of breath, no abdominal pain nausea or vomiting, no diarrhea constipation, no urinary symptoms and no lower extremity edema. On arrival to the ED patient hemodynamically stable, labs are significant for WBC count of 17.3 which is chronically elevated, INR of 1.7, sodium 132, potassium 3.1, Head and neck CT angiogram shows no significant dissection aneurysm or stenosis, CT head showed cerebral volume loss and moderate bilateral periventricular and central white matter diminished attenuation which is nonspecific Patient admitted for further evaluation Review of Systems 2 Review of Systems: Yes all other systems are reviewed and are negative [facility] Medical History Normocytic anemia Hyponatremia Low sodium levels Hypercholesterolemia Prostate cancer Osteoarthritis, shoulder Venous insufficiency COVID-19 virus infection Family History Father Diabetes Surgical History History of radical prostatectomy Erectile dysfunction following urethral surgery Social History Household Members: Children Household Members Other:: daughter Housing: House Do you presently have visiting nurse or other home services: Yes ([facility]) Alcohol intake: never Patient Tobacco Use Status: Never used Tobacco Smoked in Last 30 Days: No e-Cigarette/Vaping Use: Never Used Second Hand Smoke Exposure: No Use of substances other than those prescribed or required for medical reasons: No Advance Directives: Yes Advance Directives on File: Yes Advance Directives Date on File: 08/24/21 service: No Current occupational status: retired 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, 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 [employer] Cognitive needs: Yes (cane) Hearing needs: No Vision needs: Yes Meds Allergies Allergy/AdvReac Type Severity Reaction Status Date / Time No Known Allergies Allergy Mild N/A Verified 06/05/23 10:26 Home Medications Medication Instructions Recorded Confirmed Last Taken Type cholecalciferol (vitamin D3) 25 25 mcg PO DAILY 01/17/21 06/05/23 04/01/23 History mcg (1,000 unit) capsule meloxicam 15 mg tablet 15 mg PO DAILY 04/25/22 06/05/23 04/01/23 History ascorbic acid (vitamin C) 1,000 mg 1,000 mg PO DAILY 02/22/23 06/05/23 04/01/23 History tablet,extended release cyanocobalamin (vitamin B-12) 1,000 mcg PO DAILY 02/22/23 06/05/23 04/01/23 History 1,000 mcg tablet apixaban 5 mg tablet 5 mg PO BID 06/05/23 06/05/23 Unknown History sertraline 50 mg tablet 25 mg PO DAILY 06/05/23 06/05/23 Unknown History Physical Exam 2 Vital Signs and Narrative: Vital Signs: Last Vital Signs Temp 97.7 F 06/05/23 21:32 Pulse 70 06/05/23 21:32 Resp 12 06/05/23 21:32 BP 121/64 06/05/23 21:32 Pulse Ox 99 06/05/23 21:32 O2 Del Method Room Air 06/05/23 21:32 BMI result Body Mass Index 19.7 Const: General: cooperative and no acute distress O rientation/consciousness: patient oriented x3 Eyes: General: appearance normal, both eyes and all related structures Resp: Effort & Inspection: normal respiratory effort Auscultation: clear to auscultation bilaterally Cardio: Rate: regular rate Rhythm: regular rhythm GI: Palpation (GI): Soft to palpation Auscultation: normal bowel sounds Skin: General skin exam: no rashes or lesions noted Neuro: General: patient oriented x3 Cognition (Neuro): normal cognition Extrem: Other: CN2-12 intact Strength 4/5 on the right upper extremity General: Yes normal to inspection and Yes no pedal edema Results Labs 06/06/23 02:40 06/06/23 02:40 Labs: Laboratory Results - last 24 hr 06/05/23 06/05/23 06/05/23 14:01 14:45 14:45 MCV 91.2 MCH 29.8 MCHC 32.7 RDW 15.4 Plt Count 338 MPV 8.0 L Immature Gran % (Auto) 1.0 H Neut % (Auto) 86.6 H Lymph % (Auto) 5.5 L Prentiss % (Auto) 6.7 Eos % (Auto) 0.0 Baso % (Auto) 0.2 Lymph # (Auto) 1.1 L Prentiss # (Auto) 1.3 H Eos # (Auto) 0.0 Baso # (Auto) 0.0 Abs Immat Gran (auto) 0.19 H Absolute Neuts (auto) 17.0 H Absolute Nucleated RBC 0.000 Nucleated RBC % (auto) 0.0 PT 20.9 H D INR 1.7 H APTT 28.9 Anion Gap 11 L Estim Creat Clear Calc 68.5 Estimated GFR > 60 POC Glucose 112 Random Glucose 104 Cancelled Calcium 9.5 D Phosphorus 2.2 L Magnesium 1.9 Total Creatine Kinase 15 L TSH Urine Color Urine Appearance Urine pH Ur Specific [place] Urine Protein Urine Glucose (UA) Urine Ketones Urine Blood Urine Nitrite Ur Leukocyte Esterase Urine RBC Urine WBC Ur Squamous Epith Cells Urine Bacteria Hyaline Casts 06/05/23 06/05/23 14:45 14:48 MCV MCH MCHC RDW Plt Count MPV Immature Gran % (Auto) Neut % (Auto) Lymph % (Auto) Prentiss % (Auto) Eos % (Auto) Baso % (Auto) Lymph # (Auto) Prentiss # (Auto) Eos # (Auto) Baso # (Auto) Abs Immat Gran (auto) Absolute Neuts (auto) Absolute Nucleated RBC Nucleated RBC % (auto) PT INR APTT Anion Gap Estim Creat Clear Calc Estimated GFR POC Glucose Random Glucose Calcium Phosphorus Magnesium Total Creatine Kinase Cancelled TSH 0.84 Urine Color Yellow Urine Appearance Clear Urine pH 6.5 Ur Specific [place] >= 1.030 H Urine Protein 100 (2+) H Urine Glucose (UA) Negative Urine Ketones Negative Urine Blood Negative Urine Nitrite Negative Ur Leukocyte Esterase Negative Urine RBC 3-5 H Urine WBC 0-5 Ur Squamous Epith Cells 0-2 Urine Bacteria None Seen Hyaline Casts 0-2 Imaging Radiologist's Impressions: Impressions Head CT 06/05/23 14:00 IMPRESSION: Cerebral volume loss and moderate bilateral periventricular and central white matter diminished attenuation which is nonspecific but likely to represent microvascular disease. There is no acute intracranial abnormality. This critical result was discussed with Dr. Loyd at 2:29 PM hours on 06/05/2023. It was ascertained that the content and urgency of the report was understood at the time of direct communication. Head/Neck CTA 06/05/23 14:09 IMPRESSION: CTA neck demonstrates no hemodynamically significant stenosis, dissection, or aneurysm. CTA head demonstrates no large vessel occlusion, saccular aneurysm, or dissection. Chest X-Ray 06/05/23 14:53 IMPRESSION: 1. No acute cardiopulmonary findings. 2. 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 Assessment and Plan (1) Brain TIA: Status: Acute Plan 88-year-old male with past medical history of CP comes into the hospital with complaints of weakness on the right side, being admitted to r/o acute CVA # TIA vs acute stroke - Has right sided weakness more pronounced - HEad ct and cta negative - will obtian MRI - neurology - ASA and statin # Peripheral vascular ds - On asa , eliquis? - likely started recently but cannot find reason on chart review DVT ppx; Eliquis Time Spent With Patient Time: Total time managing care of this patient today ____ minutes. Quality Stroke Does the patient have a stroke diagnosis?: No VTE Prior VTE?: No VTE Risk Level:: Medical - moderate - high VTE Device Contraindication: Treatment Not Indicated VTE Drug Contraindication: N/A - Med Ordered
[2023-06-06] VITALS (16 sets, daily range): BP systolic 80–138; BP diastolic 42–81; PULSE 58–91; RESP 14–20; TEMP 36.1–37; O2SAT 95–100
[2023-06-06 02:48] LABS: MANUAL DIFF FLAG NO
[2023-06-06 02:50] LABS: Basophils Percent Auto 0.1 % (0-2); Eosinophils Percent Auto 0.2 % (0-4); Hematocrit 30.6 % (42.0-52.0); Hemoglobin 9.9 g/dl (14.0-18.0); Imm Gran Abs Auto 0.16 X10*3/uL (0.00-0.03); Imm Gran Pct Auto 0.9 % (0.0-0.4); Lymphocytes Absolute Auto 1.2 X10*3/uL (1.2-4.9); Lymphocytes Percent Auto 6.8 % (20-40); Mean Corpuscular HGB Conc 32.4 g/dl (31.0-36.0); Mean Corpuscular Hemoglobin 29.6 pg (27.0-33.0); Mean Corpuscular Volume 91.3 fL (80.0-98.0); Mean Platelet Volume 8.1 fL (9.4-12.4); Monocytes Absolute Auto 1.1 X10*3/uL (0.1-1.2); Monocytes Percent Auto 6.5 % (2-11); Neutrophils Absolute Auto 14.8 x10*3/uL (2.0-8.3); Neutrophils Percent Auto 85.5 % (45-73); Platelet Count 354 X10*3/uL (160-400); Red Blood Count 3.35 X10*6/uL (4.60-5.80); Red Cell Distribution Width 15.3 % (11.0-16.0); White Blood Count 17.3 X10*3/uL (4.8-10.8)
[2023-06-06 03:04] LABS: Anion Gap 13 (12-20); Blood Urea Nitrogen 12 mg/dL (9-16); Calcium 9.5 mg/dL (8.4-10.2); Carbon Dioxide 24 mmol/L (22-29); Chloride 98 mmol/L (96-108); Creatinine Clr Calc Pharmacy 65.6; Estimated Glomerular Filt Rate > 60; Glucose Random 116 mg/dL (60-115); Potassium 3.1 mmol/L (3.3-5.1); Sodium 132 mmol/L (135-145)
[2023-06-06 04:45] LABS: Cholesterol 73 mg/dL (<200); HDL Cholesterol 31 mg/dL (>40); LDL Cholesterol Calculated 11 mg/dL (<100); Triglycerides 156 mg/dL (<150)
--- NOTE | 2023-06-06 07:38 | PC.NURSE ---
Gave report to Karen on [facility].
--- NOTE | 2023-06-06 08:54 | PM.EVENT ---
Event Note Date of Service: 06/06/23 Event Note: Pt seen and examined, labs med, imaging reviewed. Admitted this morning with weakness, and concern for TIA vs CVA, awaiting further testing with MRI and Neuro eval . Leukocytosis appear to be chronic and may need further outpatient work up Time Spent With Patient Time: Total time managing care of this patient today ____ minutes.
[2023-06-06] MEDS: polyethylene glycoL 3350 17 GM POWD.PACK PO (08:58)
[2023-06-06] MEDS: NaPROXEN 500 MG TABLET PO ×2 (08:59→20:21)
[2023-06-06] MEDS: Apixaban 5 MG TABLET PO ×2 (08:59→20:21)
[2023-06-06] MEDS: Sertraline HCL 25 MG TABLET PO (08:59)
[2023-06-06] MEDS: Ascorbic Acid 500 MG TABLET 1000 MG PO (08:59)
[2023-06-06] MEDS: Cholecalciferol (Vitamin D3) 25 MCG TABLET PO (08:59)
[2023-06-06] MEDS: Atorvastatin Calcium 80 MG TABLET PO (08:59)
--- NOTE | 2023-06-06 10:33 | MHC.CM.PN ---
Matt 06/07/23, Pt lives alone in home, daughter stays with him during the day, he is alone at night. He has home health services from [facility], [facility] in the home: walker, lift chair, hosp. bed. Daughter reports that he has become weaker over the last 2 weeks, and is not eating or drinking much. His PCP started him on a new med for depression. She said that he has had STR at [facility][1] in the past and it did wonders . She requested that he be evaluated for STR again. CM to follow and assist with discharge.
--- NOTE | 2023-06-06 11:08 | P.CNNE_ITS ---
History of Present Illness Data of Consult Service Date: 06/06/23 Primary Care Provider: Bobbi Harris MD [facility] Reason for consult: Weakness 88 years old man who came to hospital with the the generalized weakness and then also right-sided weakness. Onset of weakness was unclear. There was no complaint of headache or pain. There was no recent cold or flu-like illness or fever. There was no history of any recent trauma or seizure. There was no speech or swallowing difficulty double vision or blurred vision type of symptomatology. His speech is not changed. Review of Systems 2 Review of Systems: As in HPI [facility] Past Medical History Medical History Normocytic anemia Hyponatremia Low sodium levels Hypercholesterolemia Prostate cancer Osteoarthritis, shoulder Venous insufficiency COVID-19 virus infection Family History Family History Father Diabetes Surgical History Surgical History History of radical prostatectomy Erectile dysfunction following urethral surgery Social History Social History Household Members: Children Household Members Other:: daughter Housing: House Do you presently have visiting nurse or other home services: Yes ([facility]) Alcohol intake: never Patient Tobacco Use Status: Never used Tobacco Smoked in Last 30 Days: No e-Cigarette/Vaping Use: Never Used Second Hand Smoke Exposure: No Use of substances other than those prescribed or required for medical reasons: No Advance Directives: Yes Advance Directives on File: Yes Advance Directives Date on File: 08/24/21 Do you have thoughts of harming others: None service: No Current occupational status: retired 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, 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 [employer] Cognitive needs: Yes (cane) Hearing needs: No Vision needs: Yes Meds Allergies Allergy/AdvReac Type Severity Reaction Status Date / Time No Known Allergies Allergy Mild N/A Verified 06/05/23 10:26 Active Medications: Current Medications Acetaminophen (Acetaminophen 325 Mg Tablet) 650 mg PO Q6H PRN PRN Reason: Pain, Mild (Pain Scale 1-3) Albuterol Sulfate (Albuterol Sulfate 90 Mcg 8 Gm Inhaler) 2 puff INHALE Q4H PRN PRN Reason: shortness of breath or wheezing Apixaban (Apixaban 5 Mg Tablet) 5 mg PO BID [facility] Last Admin: 06/06/23 08:59 Dose: 5 mg Ascorbic Acid (Ascorbic Acid 500 Mg Tablet) 1,000 mg PO DAILY [facility] Last Admin: 06/06/23 08:59 Dose: 1,000 mg Aspirin (Aspirin Enteric Coated 81 Mg Tablet.Dr) 81 mg PO DAILY [facility] Last Admin: 06/06/23 09:06 Dose: Not Given Atorvastatin Calcium (Atorvastatin Calcium 80 Mg Tablet) 80 mg PO DAILY [facility] Last Admin: 06/06/23 08:59 Dose: 80 mg Cyanocobalamin (Cyanocobalamin (Vitamin B-12) 1,000 Mcg Tablet) 1,000 mcg PO DAILY [facility] Last Admin: 06/06/23 09:05 Dose: Not Given Cyproheptadine HCl (Cyproheptadine Hcl 4 Mg Tablet) 4 mg PO BEDTIME [facility] Docusate Sodium (Docusate Sodium 100 Mg Capsule) 100 mg PO DAILY PRN PRN Reason: Constipation Naproxen (Naproxen 500 Mg Tablet) 500 mg PO BID [facility] Last Admin: 06/06/23 08:59 Dose: 500 mg Ondansetron HCl (Ondansetron Hcl 4 Mg/2 Ml Vial) 4 mg IVPUSH Q8H PRN PRN Reason: Nausea and Vomiting Polyethylene Glycol (Polyethylene Glycol 3350 17 Gm Powd.Pack) 17 gm PO DAILY [facility] Last Admin: 06/06/23 08:58 Dose: 17 gm Pravastatin Sodium (Pravastatin Sodium 40 Mg Tablet) 40 mg PO BEDTIME [facility] Sertraline HCl (Sertraline Hcl 25 Mg Tablet) 25 mg PO DAILY [facility] Last Admin: 06/06/23 08:59 Dose: 25 mg Vitamin D (Cholecalciferol (Vitamin D3) 25 Mcg Tablet) 25 mcg PO DAILY [facility] Last Admin: 06/06/23 08:59 Dose: 25 mcg Home Medications Medication Instructions Recorded Confirmed Last Taken Type cholecalciferol (vitamin D3) 25 25 mcg PO DAILY 01/17/21 06/05/23 04/01/23 History mcg (1,000 unit) capsule meloxicam 15 mg tablet 15 mg PO DAILY 04/25/22 06/05/23 04/01/23 History ascorbic acid (vitamin C) 1,000 mg 1,000 mg PO DAILY 02/22/23 06/05/23 04/01/23 History tablet,extended release cyanocobalamin (vitamin B-12) 1,000 mcg PO DAILY 02/22/23 06/05/23 04/01/23 History 1,000 mcg tablet apixaban 5 mg tablet 5 mg PO BID 06/05/23 06/05/23 Unknown History sertraline 50 mg tablet 25 mg PO DAILY 06/05/23 06/05/23 Unknown History Physical Exam 2 Vital Signs: Vital Signs: Last Vital Signs Temp 97.1 F 06/06/23 10:57 Pulse 66 06/06/23 10:57 Resp 20 06/06/23 10:57 BP 84/53 L 06/06/23 10:57 Pulse Ox 97 06/06/23 10:57 O2 Del Method Room Air 06/06/23 10:57 BMI result Body Mass Index 19.7 Neuro: Other: Alert and awake with normal spontaneity of speech fluency comprehension and affect. He is able to follow commands. Face is symmetrical. Visual [place] are full. There is no obvious focal weakness. Deep tendon reflexes are absent with flat plantars. Results Labs 06/06/23 02:40 06/06/23 02:40 Labs: Short CBC 06/05/23 06/06/23 Range/Units 14:45 02:40 WBC 19.6 H 17.3 H (4.8-10.8) X10*3/uL Hgb 10.2 L 9.9 L (14.0-18.0) g/dl Hct 31.2 L 30.6 L (42.0-52.0) % Plt Count 338 354 (160-400) X10*3/uL BMP 06/05/23 06/06/23 14:45 02:40 Sodium 130 L 132 L Potassium 3.2 L 3.1 L Chloride 96 98 Carbon Dioxide 26 24 BUN 11 12 Creatinine 0.67 0.70 Calcium 9.5 D 9.5 Cardiac Enzymes 06/05/23 06/05/23 Range/Units 14:45 14:45 Total Creatine Kinase 15 L Cancelled (38-174) U/L Urine 06/05/23 Range/Units 14:48 Urine Color Yellow Urine Appearance Clear Urine pH 6.5 (5.0-9.0) Ur Specific [place] >= 1.030 H (1.005-1.025) Urine Protein 100 (2+) H (Neg-Trace) mg/dL Urine Glucose (UA) Negative (Negative) mg/dL Noncontrast head CT revealed moderate diffuse cerebral atrophy and moderate chronic microvascular ischemic changes per Assessment and Plan (1) CVA (cerebral vascular accident): Status: Acute 88 years old man with nonspecific symptomatology of both generalized and right- sided weakness. Examination did not reveal any obvious upper motor neuron sign other than cognitive difficulties. He has multiple reasons to be generally weeks including anemia and hyponatremia but I am not sure if that would explain his symptomatology. There is no obvious sign of infection. My recommendation is to obtain noncontrast MRI of brain, serum CPK level, an [place]: Receptor antibody titer for blocking binding and modulating antibodies. Time Spent With Patient Time: Total time managing care of this patient today ____ minutes. Procedures Date of Service Date of Service: 06/06/23
[2023-06-06] MEDS: 0.9 % Sodium Chloride 500 ML IV (11:20)
[2023-06-06] MEDS: 0.9 % Sodium Chloride 1,000 ML 500 ML IVCONT (12:21)
[2023-06-06] MEDS: Midodrine HCl 5 MG TABLET PO (14:09)
--- NOTE | 2023-06-06 14:09 | HO.PM.IMPN ---
Subjective Subjective Date of Service: 06/06/23 Interval History: Pt has been experiencing low BP in 84 from normal BP earlier in the morning, and started on IVF boluses, initially was assymptomatic sitting up eating, conversing normally, following 2 500 ml of NS, bP remains low, has no fever, and is becoming more lethargic but still alert and conversing, skin is warm. Pt is gettting addditional normal saline bolus with SBP now near 90 and also been given midodrine, repeating labs including lactic acid, CBC, BMP and blood culture. WBC earlier was 17 but has chronic leukocytosis, UA no infection and CXR showed no pneumonic process. I have discussed with HCP and the possibility of transfering to ICU for vasopressor, HCP is discussing this with other relative to make a decision Physical Exam Vital Signs: Vital Signs: Last Vital Signs Temp 97.1 F 06/06/23 10:57 Pulse 62 06/06/23 12:03 Resp 20 06/06/23 10:57 BP 82/48 L 06/06/23 12:03 Pulse Ox 97 06/06/23 10:57 O2 Del Method Room Air 06/06/23 10:57 BMI result Body Mass Index 19.7 Objective Data Active Medications Acetaminophen (Acetaminophen 325 Mg Tablet) 650 mg PO Q6H PRN PRN Reason: Pain, Mild (Pain Scale 1-3) Albuterol Sulfate (Albuterol Sulfate 90 Mcg 8 Gm Inhaler) 2 puff INHALE Q4H PRN PRN Reason: shortness of breath or wheezing Apixaban (Apixaban 5 Mg Tablet) 5 mg PO BID [facility] Last Admin: 06/06/23 08:59 Dose: 5 mg Documented By: MICHELLE Ascorbic Acid (Ascorbic Acid 500 Mg Tablet) 1,000 mg PO DAILY [facility] Last Admin: 06/06/23 08:59 Dose: 1,000 mg Documented By: MICHELLE Aspirin (Aspirin Enteric Coated 81 Mg Tablet.) 81 mg PO DAILY [facility] Last Admin: 06/06/23 09:06 Dose: Not Given Documented By: MICHELLE Non-Admin Reason: Patient Refused Atorvastatin Calcium (Atorvastatin Calcium 80 Mg Tablet) 80 mg PO DAILY [facility] Last Admin: 06/06/23 08:59 Dose: 80 mg Documented By: MICHELLE Cyanocobalamin (Cyanocobalamin (Vitamin B-12) 1,000 Mcg Tablet) 1,000 mcg PO DAILY [facility] Last Admin: 06/06/23 09:05 Dose: Not Given Documented By: MICHELLE Non-Admin Reason: Patient Refused Cyproheptadine HCl (Cyproheptadine Hcl 4 Mg Tablet) 4 mg PO BEDTIME [facility] Docusate Sodium (Docusate Sodium 100 Mg Capsule) 100 mg PO DAILY PRN PRN Reason: Constipation Sodium Chloride (Ns) 1,000 mls @ 500 mls/hr IVCONT .Q2H JAY Stop: 06/06/23 14:14 Last Infusion: 06/06/23 13:47 Dose: Infused Documented By: MICHELLE Sodium Chloride (Ns) 1,000 mls @ 999 mls/hr IV .Q1H1M [facility] Stop: 06/06/23 15:00 Naproxen (Naproxen 500 Mg Tablet) 500 mg PO BID [facility] Last Admin: 06/06/23 08:59 Dose: 500 mg Documented By: MICHELLE Ondansetron HCl (Ondansetron Hcl 4 Mg/2 Ml Vial) 4 mg IVPUSH Q8H PRN PRN Reason: Nausea and Vomiting Polyethylene Glycol (Polyethylene Glycol 3350 17 Gm Powd.Pack) 17 gm PO DAILY [facility] Last Admin: 06/06/23 08:58 Dose: 17 gm Documented By: MICHELLE Pravastatin Sodium (Pravastatin Sodium 40 Mg Tablet) 40 mg PO BEDTIME [facility] Sertraline HCl (Sertraline Hcl 25 Mg Tablet) 25 mg PO DAILY [facility] Last Admin: 06/06/23 08:59 Dose: 25 mg Documented By: MICHELLE Vitamin D (Cholecalciferol (Vitamin D3) 25 Mcg Tablet) 25 mcg PO DAILY [facility] Last Admin: 06/06/23 08:59 Dose: 25 mcg Documented By: MICHELLE Labs 06/06/23 02:40 06/06/23 14:53 Labs: Laboratory Results - last 24 hr 06/05/23 06/05/23 06/05/23 14:45 14:45 14:45 MCV 91.2 MCH 29.8 MCHC 32.7 RDW 15.4 Plt Count 338 MPV 8.0 L Immature Gran % (Auto) 1.0 H Neut % (Auto) 86.6 H Lymph % (Auto) 5.5 L [place] % (Auto) 6.7 Eos % (Auto) 0.0 Baso % (Auto) 0.2 Lymph # (Auto) 1.1 L [place] # (Auto) 1.3 H Eos # (Auto) 0.0 Baso # (Auto) 0.0 Abs Immat Gran (auto) 0.19 H Absolute Neuts (auto) 17.0 H Absolute Nucleated RBC 0.000 Nucleated RBC % (auto) 0.0 PT 20.9 H D INR 1.7 H APTT 28.9 Anion Gap 11 L Estim Creat Clear Calc 68.5 Estimated GFR > 60 Random Glucose 104 Cancelled Calcium 9.5 D Phosphorus 2.2 L Magnesium 1.9 Total Creatine Kinase 15 L Cancelled Triglycerides Cholesterol LDL Cholesterol, Calc HDL Cholesterol TSH 0.84 Urine Color Urine Appearance Urine pH Ur Specific [place] Urine Protein Urine Glucose (UA) Urine Ketones Urine Blood Urine Nitrite Ur Leukocyte Esterase Urine RBC Urine WBC Ur Squamous Epith Cells Urine Bacteria Hyaline Casts 06/05/23 06/06/23 14:48 02:40 MCV 91.3 MCH 29.6 MCHC 32.4 RDW 15.3 Plt Count 354 MPV 8.1 L Immature Gran % (Auto) 0.9 H Neut % (Auto) 85.5 H Lymph % (Auto) 6.8 L [place] % (Auto) 6.5 Eos % (Auto) 0.2 Baso % (Auto) 0.1 Lymph # (Auto) 1.2 [place] # (Auto) 1.1 Eos # (Auto) 0.0 Baso # (Auto) 0.0 Abs Immat Gran (auto) 0.16 H Absolute Neuts (auto) 14.8 H Absolute Nucleated RBC 0.000 Nucleated RBC % (auto) 0.0 PT INR APTT Anion Gap 13 Estim Creat Clear Calc 65.6 Estimated GFR > 60 Random Glucose 116 H Calcium 9.5 Phosphorus Magnesium Total Creatine Kinase Triglycerides 156 H Cholesterol 73 LDL Cholesterol, Calc 11 HDL Cholesterol 31 L TSH Urine Color Yellow Urine Appearance Clear Urine pH 6.5 Ur Specific [place] >= 1.030 H Urine Protein 100 (2+) H Urine Glucose (UA) Negative Urine Ketones Negative Urine Blood Negative Urine Nitrite Negative Ur Leukocyte Esterase Negative Urine RBC 3-5 H Urine WBC 0-5 Ur Squamous Epith Cells 0-2 Urine Bacteria None Seen Hyaline Casts 0-2 Assessment and Plan (1) Hypotension: Status: Acute Plan 88-year-old male with past medical history of CVA peripheral vascular disease, history prostate cancer status post prostatectomy, venous insufficiency, HLD, normocytic anemia, history of SIADH/hyponatremia comes into the hospital with complaints of weakness and being work up for ERUM/stroke. Has leukocytosis without source of infection and now hypotension. HypOtension-without source of infection (No Sepsis) likely from dehydration elevated WBC is chronic, normal saline boluses, midodrine given, may need vasopressor and transfer to ICU. Get blood cultures, lactic acid. Discussed with family and ICU MD, family/patient wish not to escalate care at this point, Blood pressure has improved with last reading 125/61, continue NS at 100 Weakness, I don't think this was due to stroke, I suspect this was related to low BPs and there were instances of low BPs yesterday. MRI will not cell changer at this point and therefore canceling it after discussing it with HcP Time Spent With Patient Time: Total time managing care of this patient today ____ minutes. Quality Stroke Does the patient have a stroke diagnosis?: No VTE Prior VTE?: No VTE Risk Level:: Medical - moderate - high VTE Device Contraindication: Treatment Not Indicated VTE Drug Contraindication: N/A - Med Ordered
[2023-06-06] MEDS: 0.9 % Sodium Chloride 1,000 ML 999 ML IV (14:10)
--- NOTE | 2023-06-06 15:05 | W.MHC.ACPN ---
Advanced Care Planning Note Advanced Care Planning Note Discussed with: patient and family member(s) Time spent (in minutes): 30 Narrative: Mr. Maynard developed hypotension, prompting ICU consult. Mr. Maynard was alert and oriented to person, place, time, and situation. Mr. Maynard expressed he is ready to be with his , who has passed years prior. I described common ICU interventions, including central lines, arterial lines, vasopressors and non-invasive ventilation. Mr. Maynard deferred to his daughter, Molly, who is also his healthcare proxy. I asked Mr. Maynard permission to call his daughter. Molly, who is a nurse, expressed that she ultimately defers to her father given he has capacity. However, she reports that she has also expressed to Mr. Maynard that she does not recommend he be transferred to the ICU or pursue common ICU interventions if he became critically ill. I made this known to Mr. Maynard. Given this information, Mr. Maynard felt that transfer to ICU and other interventions would not be within his goals of care, which are to mainly be reunited with his . I discussed this with Dr. Engel. Problems Discussed (1) CVA (cerebral vascular accident):
[2023-06-06 15:08] LABS: Lactic Acid 1.9 mmol/L (0.5-2.0)
[2023-06-06 15:17] LABS: Anion Gap 14 (12-20); Blood Urea Nitrogen 14 mg/dL (9-16); Calcium 9.6 mg/dL (8.4-10.2); Carbon Dioxide 19 mmol/L (22-29); Chloride 103 mmol/L (96-108); Creatinine Clr Calc Pharmacy 57.4; Estimated Glomerular Filt Rate > 60; Glucose Random 95 mg/dL (60-115); Potassium 3.8 mmol/L (3.3-5.1); Sodium 132 mmol/L (135-145)
[2023-06-06 15:26] LABS: Hematocrit 29.5 % (42.0-52.0); Hemoglobin 9.1 g/dl (14.0-18.0); Mean Corpuscular HGB Conc 30.8 g/dl (31.0-36.0); Mean Corpuscular Hemoglobin 29.5 pg (27.0-33.0); Mean Corpuscular Volume 95.8 fL (80.0-98.0); Mean Platelet Volume 8.6 fL (9.4-12.4); Platelet Count 314 X10*3/uL (160-400); Red Blood Count 3.08 X10*6/uL (4.60-5.80); Red Cell Distribution Width 15.7 % (11.0-16.0); White Blood Count 19.1 X10*3/uL (4.8-10.8)
[2023-06-06] MEDS: cefTRIAXone sodium 1 GM in 0.9 % Sodium Chloride 50 ML IV (17:45)
[2023-06-06] MEDS: Doxycycline Hyclate 100 MG in 0.9 % Sodium Chloride 250 ML 166.67 MG IV (18:20)
[2023-06-06] MEDS: Cyproheptadine HCl 4 MG TABLET PO (20:21)
[2023-06-06] MEDS: Pravastatin Sodium 40 MG TABLET PO (20:21)
[2023-06-07 00:03] VITALS: BP 103/56; PULSE 113; RESP 20; TEMP 36.2; O2SAT 96
[2023-06-07 03:17] VITALS: BP 115/62; PULSE 72; RESP 20; TEMP 36.1; O2SAT 97
[2023-06-07] MEDS: Doxycycline Hyclate 100 MG in 0.9 % Sodium Chloride 250 ML 166.67 MG IV ×2 (05:07→18:38)
[2023-06-07 07:26] VITALS: BP 128/62; PULSE 69; RESP 18; TEMP 36.2; O2SAT 94
[2023-06-07 07:46] LABS: Hematocrit 31.4 % (42.0-52.0); Hemoglobin 10.2 g/dl (14.0-18.0); Mean Corpuscular HGB Conc 32.5 g/dl (31.0-36.0); Mean Corpuscular Hemoglobin 30.1 pg (27.0-33.0); Mean Corpuscular Volume 92.6 fL (80.0-98.0); Mean Platelet Volume 8.3 fL (9.4-12.4); Platelet Count 369 X10*3/uL (160-400); Red Blood Count 3.39 X10*6/uL (4.60-5.80); Red Cell Distribution Width 15.4 % (11.0-16.0); White Blood Count 19.6 X10*3/uL (4.8-10.8)
--- NOTE | 2023-06-07 10:11 | P.PNIM_ITS ---
Subjective Subjective Date of Service: 06/07/23 Interval History: f/u on weakness, hypotension. Low BP resolved overnight, still complaint of weakness and unsteadines, no other neuro changes Physical Exam 2 Vital Signs: Vital Signs: Last Vital Signs Temp 97.1 F 06/07/23 07:26 Pulse 69 06/07/23 07:26 Resp 18 06/07/23 07:26 BP 128/62 06/07/23 07:26 Pulse Ox 94 06/07/23 07:26 O2 Del Method Room Air 06/07/23 07:26 O2 Flow Rate 2 06/07/23 00:03 BMI result Body Mass Index 19.7 Const: Other: General: AO X 3, no acute distress Resp: CTA bilateral CVS: S1,S2,RRR GI: +BS, NT, no distention Skin: No rash Neuro: motor grossly intact, no focal finding other than unsteady gait Psych: appropriate affect Objective Data Active Medications Acetaminophen (Acetaminophen 325 Mg Tablet) 650 mg PO Q6H PRN PRN Reason: Pain, Mild (Pain Scale 1-3) Albuterol Sulfate (Albuterol Sulfate 90 Mcg 8 Gm Inhaler) 2 puff INHALE Q4H PRN PRN Reason: shortness of breath or wheezing Apixaban (Apixaban 5 Mg Tablet) 5 mg PO BID [facility] Last Admin: 06/06/23 20:21 Dose: 5 mg Documented By: ENOC Ascorbic Acid (Ascorbic Acid 500 Mg Tablet) 1,000 mg PO DAILY [facility] Last Admin: 06/06/23 08:59 Dose: 1,000 mg Documented By: MICHELLE Aspirin (Aspirin Enteric Coated 81 Mg Tablet.) 81 mg PO DAILY [facility] Last Admin: 06/06/23 09:06 Dose: Not Given Documented By: MICHELLE Non-Admin Reason: Patient Refused Atorvastatin Calcium (Atorvastatin Calcium 80 Mg Tablet) 80 mg PO DAILY [facility] Last Admin: 06/06/23 08:59 Dose: 80 mg Documented By: MICHELLE Cyanocobalamin (Cyanocobalamin (Vitamin B-12) 1,000 Mcg Tablet) 1,000 mcg PO DAILY [facility] Last Admin: 06/06/23 09:05 Dose: Not Given Documented By: MICHELLE Non-Admin Reason: Patient Refused Cyproheptadine HCl (Cyproheptadine Hcl 4 Mg Tablet) 4 mg PO BEDTIME [facility] Last Admin: 06/06/23 20:21 Dose: 4 mg Documented By: ENOC Docusate Sodium (Docusate Sodium 100 Mg Capsule) 100 mg PO DAILY PRN PRN Reason: Constipation Ceftriaxone Sodium 1 gm/ (Sodium Chloride) 50 mls @ 100 mls/hr IV Q24H [facility] Last Infusion: 06/06/23 18:17 Dose: Infused Documented By: CAITY Doxycycline Hyclate 100 mg/ (Sodium Chloride) 250 mls @ 166.67 mls/hr IV Q12H [facility] Last Infusion: 06/07/23 06:39 Dose: Infused Documented By: ENOC Naproxen (Naproxen 500 Mg Tablet) 500 mg PO BID [facility] Last Admin: 06/06/23 20:21 Dose: 500 mg Documented By: ENOC Ondansetron HCl (Ondansetron Hcl 4 Mg/2 Ml Vial) 4 mg IVPUSH Q8H PRN PRN Reason: Nausea and Vomiting Polyethylene Glycol (Polyethylene Glycol 3350 17 Gm Powd.Pack) 17 gm PO DAILY [facility] Last Admin: 06/06/23 08:58 Dose: 17 gm Documented By: MICHELLE Pravastatin Sodium (Pravastatin Sodium 40 Mg Tablet) 40 mg PO BEDTIME [facility] Last Admin: 06/06/23 20:21 Dose: 40 mg Documented By: ENOC Sertraline HCl (Sertraline Hcl 25 Mg Tablet) 25 mg PO DAILY [facility] Last Admin: 06/06/23 08:59 Dose: 25 mg Documented By: MICHELLE Vitamin D (Cholecalciferol (Vitamin D3) 25 Mcg Tablet) 25 mcg PO DAILY [facility] Last Admin: 06/06/23 08:59 Dose: 25 mcg Documented By: MICHELLE Labs 06/07/23 07:21 06/06/23 14:53 Labs: Laboratory Results - last 24 hr 06/06/23 06/06/23 06/07/23 14:50 14:53 07:21 MCV 95.8 92.6 MCH 29.5 30.1 MCHC 30.8 L 32.5 RDW 15.7 15.4 Plt Count 314 369 MPV 8.6 L 8.3 L Absolute Nucleated RBC 0.000 0.000 Nucleated RBC % (auto) 0.0 0.0 Anion Gap 14 Estim Creat Clear Calc 57.4 Estimated GFR > 60 Random Glucose 95 Lactic Acid 1.9 Calcium 9.6 Assessment and Plan (1) Hypotension: Status: Acute Plan 88-year-old male with past medical history of CVA peripheral vascular disease, history prostate cancer status post prostatectomy, venous insufficiency, HLD, normocytic anemia, history of SIADH/hyponatremia comes into the hospital with complaints of weakness and being work up for ERUM/stroke. Has leukocytosis without source of infection and now hypotension. HypOtension-without source of infection (No Sepsis) likely from dehydration elevated WBC is chronic. Treated with IVF and 1 dose of 5 mg of midodrine with good effect, continue IVF, empiric Ceftriaxone and Doxy until blood culture resulted. Family declined escalation of care to ICU if it became necessary. Weakness, I don't think this was due to stroke, I suspect this was related to low BPs and there were instances of low BPs on presentation. MRI will not change and was discussed with daughter and cancelled, by my understanding is a second daughter wants the MRI after all HLD statin continue Eliquis--reason for use not clear, but prescribed by PCP, will check with famil Unsteady gait- is chronic, PT eval DVT prophylaxis--eliquis need for inpatient; Hypotension, unsteady gait, SIRS Discussed with daughter over the phone Time Spent With Patient Time: Total time managing care of this patient today ____ minutes. Quality Stroke Does the patient have a stroke diagnosis?: No VTE Prior VTE?: No VTE Risk Level:: Medical - moderate - high VTE Device Contraindication: Treatment Not Indicated VTE Drug Contraindication: N/A - Med Ordered
[2023-06-07] MEDS: NaPROXEN 500 MG TABLET PO ×2 (10:17→20:14)
[2023-06-07] MEDS: Sertraline HCL 25 MG TABLET PO (10:17)
[2023-06-07] MEDS: Apixaban 5 MG TABLET PO ×2 (10:18→20:15)
[2023-06-07] MEDS: Aspirin Enteric Coated 81 MG TABLET.DR PO (10:18)
[2023-06-07] MEDS: Atorvastatin Calcium 80 MG TABLET PO (10:18)
[2023-06-07] MEDS: Cyanocobalamin (Vitamin B-12) 1,000 MCG TABLET 1000 MCG PO (10:18)
[2023-06-07] MEDS: polyethylene glycoL 3350 17 GM POWD.PACK PO (10:19)
[2023-06-07] MEDS: Cholecalciferol (Vitamin D3) 25 MCG TABLET PO (10:19)
[2023-06-07] MEDS: Ascorbic Acid 500 MG TABLET 1000 MG PO (10:19)
[2023-06-07 11:09] VITALS: BP 111/61; PULSE 71; RESP 18; TEMP 36.2; O2SAT 94
[2023-06-07 15:37] VITALS: BP 99/54; PULSE 60; RESP 20; TEMP 36; O2SAT 96
[2023-06-07] MEDS: cefTRIAXone sodium 1 GM in 0.9 % Sodium Chloride 50 ML IV (18:11)
[2023-06-07 19:31] VITALS: BP 95/52; PULSE 67; RESP 20; TEMP 36.1; O2SAT 94
[2023-06-07] MEDS: Cyproheptadine HCl 4 MG TABLET PO (20:14)
[2023-06-08] VITALS (8 sets, daily range): BP systolic 103–132; BP diastolic 54–71; PULSE 60–73; RESP 16–20; TEMP 36.1–37.3; O2SAT 96–100
[2023-06-08] MEDS: Doxycycline Hyclate 100 MG in 0.9 % Sodium Chloride 250 ML 166.67 MG IV ×2 (05:00→16:09)
--- NOTE | 2023-06-08 08:54 | P.PNIM_ITS ---
Subjective Subjective Date of Service: 06/08/23 Interval History: f/u on weakness, hypOtension. BP normal, cultures negative thus far, complaint of been wobly Physical Exam 2 Vital Signs: Vital Signs: Last Vital Signs Temp 98.1 F 06/08/23 07:21 Pulse 73 06/08/23 07:21 Resp 16 06/08/23 07:21 BP 132/67 06/08/23 07:21 Pulse Ox 98 06/08/23 07:21 O2 Del Method Room Air 06/08/23 07:21 O2 Flow Rate 2 06/07/23 00:03 BMI result Body Mass Index 19.7 Const: Other: General: AO X 3, no acute distress Resp: CTA bilateral CVS: S1,S2,RRR GI: +BS, NT, no distention Skin: No rash Neuro: motor grossly intact, no focal finding other than unsteady gait Psych: appropriate affect Objective Data Active Medications Acetaminophen (Acetaminophen 325 Mg Tablet) 650 mg PO Q6H PRN PRN Reason: Pain, Mild (Pain Scale 1-3) Albuterol Sulfate (Albuterol Sulfate 90 Mcg 8 Gm Inhaler) 2 puff INHALE Q4H PRN PRN Reason: shortness of breath or wheezing Apixaban (Apixaban 5 Mg Tablet) 5 mg PO BID [facility] Last Admin: 06/07/23 20:15 Dose: 5 mg Documented By: MAJNU Ascorbic Acid (Ascorbic Acid 500 Mg Tablet) 1,000 mg PO DAILY [facility] Last Admin: 06/07/23 10:19 Dose: 1,000 mg Documented By: JESSY Aspirin (Aspirin Enteric Coated 81 Mg Tablet.) 81 mg PO DAILY [facility] Last Admin: 06/07/23 10:18 Dose: 81 mg Documented By: JESSY Atorvastatin Calcium (Atorvastatin Calcium 80 Mg Tablet) 80 mg PO DAILY [facility] Last Admin: 06/07/23 10:18 Dose: 80 mg Documented By: JESSY Cyanocobalamin (Cyanocobalamin (Vitamin B-12) 1,000 Mcg Tablet) 1,000 mcg PO DAILY [facility] Last Admin: 06/07/23 10:18 Dose: 1,000 mcg Documented By: JESSY Cyproheptadine HCl (Cyproheptadine Hcl 4 Mg Tablet) 4 mg PO BEDTIME [facility] Last Admin: 06/07/23 20:14 Dose: 4 mg Documented By: MANJU Docusate Sodium (Docusate Sodium 100 Mg Capsule) 100 mg PO DAILY PRN PRN Reason: Constipation Ceftriaxone Sodium 1 gm/ (Sodium Chloride) 50 mls @ 100 mls/hr IV Q24H [facility] Last Infusion: 06/07/23 18:43 Dose: Infused Documented By: JESSY Doxycycline Hyclate 100 mg/ (Sodium Chloride) 250 mls @ 166.67 mls/hr IV Q12H [facility] Last Infusion: 06/08/23 06:30 Dose: Infused Documented By: MANJU Naproxen (Naproxen 500 Mg Tablet) 500 mg PO BID [facility] Last Admin: 06/07/23 20:14 Dose: 500 mg Documented By: MANJU Ondansetron HCl (Ondansetron Hcl 4 Mg/2 Ml Vial) 4 mg IVPUSH Q8H PRN PRN Reason: Nausea and Vomiting Polyethylene Glycol (Polyethylene Glycol 3350 17 Gm Powd.Pack) 17 gm PO DAILY [facility] Last Admin: 06/07/23 10:19 Dose: 17 gm Documented By: JESSY Sertraline HCl (Sertraline Hcl 25 Mg Tablet) 25 mg PO DAILY [facility] Last Admin: 06/07/23 10:17 Dose: 25 mg Documented By: JESSY Vitamin D (Cholecalciferol (Vitamin D3) 25 Mcg Tablet) 25 mcg PO DAILY [facility] Last Admin: 06/07/23 10:19 Dose: 25 mcg Documented By: JESSY Labs 06/07/23 07:21 06/06/23 14:53 Microbiology Microbiology Results: Microbiology 06/06/23 14:49 Blood Culture - Preliminary Blood - Venous No growth after 24 hours. 06/06/23 14:49 Blood Culture - Preliminary Blood - Venous No growth after 24 hours. Assessment and Plan (1) Hypotension: Status: Acute Plan 88-year-old male with past medical history of CVA peripheral vascular disease, history prostate cancer status post prostatectomy, venous insufficiency, HLD, normocytic anemia, history of SIADH/hyponatremia comes into the hospital with complaints of weakness and being work up for ERUM/stroke. Has leukocytosis without source of infection and now hypotension. HypOtension-without source of infection (No Sepsis) likely from dehydration elevated WBC is chronic. Treated with IVF and 1 dose of 5 mg of midodrine with good effect, stop IVF, empiric Ceftriaxone and Doxy until blood culture resulted in 48 hrs Family declined escalation of care to ICU Weakness, I don't think this was due to stroke, I suspect this was related to low BPs and there were instances of low BPs on presentation. MRI will not change and was discussed with daughter and cancelled, by my understanding is a second daughter wants the MRI after all HLD statin continue Eliquis--reason for use not clear, but prescribed by PCP, will check with famil Unsteady gait- is chronic, PT eval, to rehab when medically ready to go DVT prophylaxis--eliquis need for inpatient; Hypotension, unsteady gait, SIRS Discussed with daughter over the phone Time Spent With Patient Time: Total time managing care of this patient today ____ minutes. Quality Stroke Does the patient have a stroke diagnosis?: No VTE Prior VTE?: No VTE Risk Level:: Medical - moderate - high VTE Device Contraindication: Treatment Not Indicated VTE Drug Contraindication: N/A - Med Ordered
[2023-06-08] MEDS: NaPROXEN 500 MG TABLET PO ×2 (09:14→19:57)
[2023-06-08] MEDS: Aspirin Enteric Coated 81 MG TABLET.DR PO (09:14)
[2023-06-08] MEDS: Apixaban 5 MG TABLET PO ×2 (09:14→19:57)
[2023-06-08] MEDS: Ascorbic Acid 500 MG TABLET 1000 MG PO (09:14)
[2023-06-08] MEDS: Cholecalciferol (Vitamin D3) 25 MCG TABLET PO (09:14)
[2023-06-08] MEDS: Sertraline HCL 25 MG TABLET PO (09:14)
[2023-06-08] MEDS: Cyanocobalamin (Vitamin B-12) 1,000 MCG TABLET 1000 MCG PO (09:14)
[2023-06-08] MEDS: polyethylene glycoL 3350 17 GM POWD.PACK PO (09:15)
[2023-06-08] MEDS: Atorvastatin Calcium 80 MG TABLET PO (09:15)
[2023-06-08] MEDS: cefTRIAXone sodium 1 GM in 0.9 % Sodium Chloride 50 ML IV (16:09)
[2023-06-08] MEDS: Cyproheptadine HCl 4 MG TABLET PO (19:58)
[2023-06-09] VITALS (8 sets, daily range): BP systolic 107–166; BP diastolic 57–78; PULSE 69–95; RESP 16–98; TEMP 36–36.3; O2SAT 93–99; BMI 19.7
[2023-06-09] MEDS: Doxycycline Hyclate 100 MG in 0.9 % Sodium Chloride 250 ML 166.67 MG IV ×2 (04:03→17:20)
[2023-06-09 06:25] LABS: Hematocrit 29.7 % (42.0-52.0); Hemoglobin 9.5 g/dl (14.0-18.0); Mean Corpuscular Hemoglobin 29.1 pg (27.0-33.0); Mean Corpuscular Volume 91.1 fL (80.0-98.0); Mean Platelet Volume 8.1 fL (9.4-12.4); Platelet Count 401 X10*3/uL (160-400); Red Blood Count 3.26 X10*6/uL (4.60-5.80); Red Cell Distribution Width 15.6 % (11.0-16.0)
[2023-06-09] MEDS: polyethylene glycoL 3350 17 GM POWD.PACK PO (08:16)
[2023-06-09] MEDS: Ascorbic Acid 500 MG TABLET 1000 MG PO (08:16)
[2023-06-09] MEDS: Sertraline HCL 25 MG TABLET PO (08:17)
[2023-06-09] MEDS: Cholecalciferol (Vitamin D3) 25 MCG TABLET PO (08:17)
[2023-06-09] MEDS: NaPROXEN 500 MG TABLET PO ×2 (08:17→20:28)
[2023-06-09] MEDS: Atorvastatin Calcium 80 MG TABLET PO (08:17)
[2023-06-09] MEDS: Cyanocobalamin (Vitamin B-12) 1,000 MCG TABLET 1000 MCG PO (08:17)
[2023-06-09] MEDS: Apixaban 5 MG TABLET PO ×2 (08:17→20:28)
[2023-06-09] MEDS: Aspirin Enteric Coated 81 MG TABLET.DR PO (08:17)
--- NOTE | 2023-06-09 09:34 | P.PNIM_ITS ---
Subjective Subjective Date of Service: 06/09/23 Interval History: f/u on weakness, hypOtension and unsteady gait Hypotension resolved, WBC going up, cultures negative. Physical Exam 2 Vital Signs: Vital Signs: Last Vital Signs Temp 96.8 F 06/09/23 07:15 Pulse 72 06/09/23 07:15 Resp 16 06/09/23 07:15 BP 166/78 H 06/09/23 07:15 Pulse Ox 97 06/09/23 07:15 O2 Del Method Room Air 06/09/23 07:15 O2 Flow Rate 2 06/07/23 00:03 BMI result Body Mass Index 19.7 Const: Other: General: AO X 3, no acute distress Resp: CTA bilateral CVS: S1,S2,RRR GI: +BS, NT, no distention Skin: No rash Neuro: motor grossly intact, no focal finding other than unsteady gait Psych: appropriate affect Objective Data Active Medications Acetaminophen (Acetaminophen 325 Mg Tablet) 650 mg PO Q6H PRN PRN Reason: Pain, Mild (Pain Scale 1-3) Albuterol Sulfate (Albuterol Sulfate 90 Mcg 8 Gm Inhaler) 2 puff INHALE Q4H PRN PRN Reason: shortness of breath or wheezing Apixaban (Apixaban 5 Mg Tablet) 5 mg PO BID [facility] Last Admin: 06/09/23 08:17 Dose: 5 mg Documented By: FARIDEH Ascorbic Acid (Ascorbic Acid 500 Mg Tablet) 1,000 mg PO DAILY [facility] Last Admin: 06/09/23 08:16 Dose: 1,000 mg Documented By: FARIDEH Aspirin (Aspirin Enteric Coated 81 Mg Tablet.) 81 mg PO DAILY [facility] Last Admin: 06/09/23 08:17 Dose: 81 mg Documented By: FARIDEH Atorvastatin Calcium (Atorvastatin Calcium 80 Mg Tablet) 80 mg PO DAILY [facility] Last Admin: 06/09/23 08:17 Dose: 80 mg Documented By: FARIDEH Cyanocobalamin (Cyanocobalamin (Vitamin B-12) 1,000 Mcg Tablet) 1,000 mcg PO DAILY [facility] Last Admin: 06/09/23 08:17 Dose: 1,000 mcg Documented By: FARIDEH Cyproheptadine HCl (Cyproheptadine Hcl 4 Mg Tablet) 4 mg PO BEDTIME [facility] Last Admin: 06/08/23 19:58 Dose: 4 mg Documented By: OPAL Docusate Sodium (Docusate Sodium 100 Mg Capsule) 100 mg PO DAILY PRN PRN Reason: Constipation Ceftriaxone Sodium 1 gm/ (Sodium Chloride) 50 mls @ 100 mls/hr IV Q24H [facility] Last Infusion: 06/08/23 16:52 Dose: Infused Documented By: MARK Doxycycline Hyclate 100 mg/ (Sodium Chloride) 250 mls @ 166.67 mls/hr IV Q12H [facility] Last Infusion: 06/09/23 06:13 Dose: Infused Documented By: OPAL Naproxen (Naproxen 500 Mg Tablet) 500 mg PO BID [facility] Last Admin: 06/09/23 08:17 Dose: 500 mg Documented By: FARIDEH Ondansetron HCl (Ondansetron Hcl 4 Mg/2 Ml Vial) 4 mg IVPUSH Q8H PRN PRN Reason: Nausea and Vomiting Polyethylene Glycol (Polyethylene Glycol 3350 17 Gm Powd.Pack) 17 gm PO DAILY [facility] Last Admin: 06/09/23 08:16 Dose: 17 gm Documented By: FARIDEH Sertraline HCl (Sertraline Hcl 25 Mg Tablet) 25 mg PO DAILY [facility] Last Admin: 06/09/23 08:17 Dose: 25 mg Documented By: FARIDEH Vitamin D (Cholecalciferol (Vitamin D3) 25 Mcg Tablet) 25 mcg PO DAILY [facility] Last Admin: 06/09/23 08:17 Dose: 25 mcg Documented By: FARIDEH Labs 06/09/23 05:48 06/06/23 14:53 Labs: Laboratory Results - last 24 hr 06/09/23 05:48 MCV 91.1 MCH 29.1 MCHC 32.0 RDW 15.6 Plt Count 401 H MPV 8.1 L Absolute Nucleated RBC 0.000 Nucleated RBC % (auto) 0.0 Hold Green Top See Note Microbiology Microbiology Results: Microbiology 06/06/23 14:49 Blood Culture - Preliminary Blood - Venous No growth after 48 hours. 06/06/23 14:49 Blood Culture - Preliminary Blood - Venous No growth after 48 hours. Assessment and Plan (1) Hypotension: Status: Acute (2) Cough: Status: Acute Plan 88-year-old male with past medical history of CVA peripheral vascular disease, history prostate cancer status post prostatectomy, venous insufficiency, HLD, normocytic anemia, history of SIADH/hyponatremia comes into the hospital with complaints of weakness and being work up for ERUM/stroke. Has leukocytosis without source of infection and now hypotension. HypOtension-without source of infection (No Sepsis) likely from dehydration elevated WBC is chronic. Treated with IVF and 1 dose of 5 mg of midodrine with good effect. IVF has been discontinued, empiric Ceftriaxone and Doxy for 3 days now. Blood cultures negative and will stop antibiotics. Family doesn't want escalation ICU if indicated. Weakness, I don't think this was due to stroke, I suspect this was related to low BPs and there were instances of low BPs on presentation. Unsteady gait is chronic, MRI is scheduled HLD statin History of DVT-- Eliquis Unsteady gait- is chronic, PT eval, to rehab when medically ready to go DVT prophylaxis--eliquis need for inpatient; Hypotension, unsteady gait, SIRS Family has been updated Time Spent With Patient Time: Total time managing care of this patient today ____ minutes. Quality Stroke Does the patient have a stroke diagnosis?: No VTE Prior VTE?: No VTE Risk Level:: Medical - moderate - high VTE Device Contraindication: Treatment Not Indicated VTE Drug Contraindication: N/A - Med Ordered
--- NOTE | 2023-06-09 10:37 | MHC.CLN ---
NUTRITION DIET=REGULAR. REPORTS THAT TAKES AT LEAST 3 ENSURE SUPPLEMENTS PER DAY. ADDING ENSURE MAX PROTEIN TID (450 KCALS, 90 G PROTEIN). INTAKE VARIABLE, 50-100%. CONTINUE CURRENT DIET AND SUPPLEMENT. FOLLOW FOR PO INTAKE.
[2023-06-09 11:21] LABS: Glucose, Whole Blood 114 mg/dL (60-115)
--- NOTE | 2023-06-09 15:17 | MHC.CM.PN ---
[facility]
[2023-06-09] MEDS: cefTRIAXone sodium 1 GM in 0.9 % Sodium Chloride 50 ML IV (16:33)
[2023-06-09] MEDS: Cyproheptadine HCl 4 MG TABLET PO (20:28)
[2023-06-10] VITALS (8 sets, daily range): BP systolic 102–141; BP diastolic 55–72; PULSE 63–80; RESP 18; TEMP 36–36.8; O2SAT 96–98
[2023-06-10] MEDS: Doxycycline Hyclate 100 MG in 0.9 % Sodium Chloride 250 ML 166.67 MG IV (05:17)
[2023-06-10] MEDS: Cyanocobalamin (Vitamin B-12) 1,000 MCG TABLET 1000 MCG PO (08:11)
[2023-06-10] MEDS: Atorvastatin Calcium 80 MG TABLET PO (08:11)
[2023-06-10] MEDS: Sertraline HCL 25 MG TABLET PO (08:11)
[2023-06-10] MEDS: Cholecalciferol (Vitamin D3) 25 MCG TABLET PO (08:11)
[2023-06-10] MEDS: Aspirin Enteric Coated 81 MG TABLET.DR PO (08:11)
[2023-06-10] MEDS: Apixaban 5 MG TABLET PO ×2 (08:11→20:41)
[2023-06-10] MEDS: Ascorbic Acid 500 MG TABLET 1000 MG PO (08:11)
[2023-06-10] MEDS: NaPROXEN 500 MG TABLET PO ×2 (08:11→20:41)
[2023-06-10] MEDS: polyethylene glycoL 3350 17 GM POWD.PACK PO (08:12)
[2023-06-10 09:00] LABS: Hematocrit 32.9 % (42.0-52.0); Hemoglobin 10.7 g/dl (14.0-18.0); Mean Corpuscular HGB Conc 32.5 g/dl (31.0-36.0); Mean Corpuscular Hemoglobin 29.7 pg (27.0-33.0); Mean Corpuscular Volume 91.4 fL (80.0-98.0); Mean Platelet Volume 8.4 fL (9.4-12.4); Platelet Count 424 X10*3/uL (160-400); Red Cell Distribution Width 15.7 % (11.0-16.0); White Blood Count 22.9 X10*3/uL (4.8-10.8)
--- NOTE | 2023-06-10 10:55 | MHC.CM.PN ---
pt dcd today ro [facility] rukhsana marte notified of dc
--- NOTE | 2023-06-10 11:29 | P.DS_ITS ---
DS: Providers Provider Date of Service: 06/10/23 Date of admission: 06/07/23 10:47 Date of discharge: 06/10/23 Primary care physician: Bobbi Harris MD Consults: 06/05/23 23:56 Consult to Neurology Routine Consulting Provider: [facility] Reason for consultation: TIA/stroke Has provider been notified: No 06/10/23 07:48 Consult to Infectious Diseases Routine Consulting Provider: [facility] Infectious Disease Reason for consultation: persistent leucocytosis Has provider been notified: No Attending physician on discharge: Lyla Andrew Discharging clinician: Lyla Andrew DS: Diagnosis Discharge Diagnosis (1) Hypotension: Status: Acute (2) Cough: Status: Acute DS: Summary Hospital Course Hospital Course: 88-year-old male with past medical history of CVA peripheral vascular disease, history prostate cancer status post prostatectomy, venous insufficiency, HLD, normocytic anemia, history of SIADH/hyponatremia comes into the hospital with complaints of weakness. Patient reports that for the past few days has been progressively weaker, and today noticed that he has right-sided weakness. He is also complaining of low appetite. Therefore decided to come to the hospital. Denies any chest pain, no headache , no change in vision, no shortness of b reath, no abdominal pain nausea or vomiting, no diarrhea constipation, no urinary symptoms and no lower extremity edema. On arrival to the ED patient hemodynamically stable, labs are significant for W BC count of 17.3 which is chronically elevated, INR of 1.7, sodium 132, potassium 3.1, Head and neck CT angiogram shows no significant dissection aneurysm or stenosis, CT head showed cerebral volume loss and moderate bilateral periventricular and central white matter diminished attenuation which is nonspecific Patient admitted for further evaluation. Hospital course: Patient was admitted for generalized weakness, hypertension without source of infection: Patient was treated with IV fluid, midodrine, also given empiric antibiotics-workup including UA,cxr ,blood culture neg @48hrs . leucocytosise thought to be chronic. off antibiotics , no fevers, asymptomatic, received empiric which were discontinued upon discharge since workup negative as above. intially was also question of tia -seen by neuro-less likely tia . mri -negative . hyponatremia seems chronic: sodium stable around 132. Pt -recomended str. Assessment plan coordination time spent 50 minute. Time Spent with Patient Time attestation: Total time managing care of this patient today ____ minutes. Discharge coordination time: Greater than 30 minutes Quality: Safe Use of Opioids Does Pt have an Active Cancer Diagnosis on the Problem List?: No Quality: Stroke Does the patient have a stroke diagnosis?: No Physical Exam Vital Signs: Vital Signs: Last Vital Signs Temp 96.8 F 06/10/23 07:04 Pulse 69 06/10/23 07:04 Resp 18 06/10/23 07:04 BP 128/68 06/10/23 07:04 Pulse Ox 98 06/10/23 07:04 O2 Del Method Room Air 06/10/23 07:04 O2 Flow Rate 2 06/07/23 00:03 BMI result Body Mass Index 19.7 General: AO X 3, no acute distress Resp: CTA bilateral CVS: S1,S2,RRR GI: +BS, NT, no distention Skin: No rash Neuro: motor grossly intact, no focal finding other than unsteady gait Psych: appropriate affect DS: Data Data Completed and Pending Labs on day of discharge: Laboratory Results - last 24 hr 06/10/23 08:12 WBC 22.9 H RBC 3.60 L Hgb 10.7 L Hct 32.9 L MCV 91.4 MCH 29.7 MCHC 32.5 RDW 15.7 Plt Count 424 H MPV 8.4 L Absolute Nucleated RBC 0.000 Nucleated RBC % (auto) 0.0 Hold Green Top See Note Preliminary micro results at discharge 06/06/23 14:49 Blood Culture - Preliminary Blood - Venous No growth after 48 hours. 06/06/23 14:49 Blood Culture - Preliminary Blood - Venous No growth after 48 hours. Imaging Chest x-ray: Radiologist's impression: ITS Impressions Head CT 06/05/23 14:00 IMPRESSION: Cerebral volume loss and moderate bilateral periventricular and central white matter diminished attenuation which is nonspecific but likely to represent microvascular disease. There is no acute intracranial abnormality. This critical result was discussed with Dr. Loyd at 2:29 PM hours on 06/05/2023. It was ascertained that the content and urgency of the report was understood at the time of direct communication. Head/Neck CTA 06/05/23 14:09 IMPRESSION: CTA neck demonstrates no hemodynamically significant stenosis, dissection, or aneurysm. CTA head demonstrates no large vessel occlusion, saccular aneurysm, or dissection. Chest X-Ray 06/05/23 14:53 IMPRESSION: 1. No acute cardiopulmonary findings. 2. 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 Brain MRI 06/09/23 13:07 IMPRESSION: No acute intracranial process. Moderate chronic white matter microangiopathy and moderate to severe diffuse brain parenchymal volume loss. Discharge Plan Discharge Anticipated Discharge Date/Time: 06/10/23 11:12 Patient Disposition: Xfer SNF Discharge Diagnosis: hypotension ,leucocytosis Referrals: [facility] [Other] - 1 Week Po,Bobbi Fitzgerald MD [Primary Care Provider] - 1 Week Discharge Medications: Continued aspirin [Adult Low Dose Aspirin] 81 mg tablet,delayed release (DR/EC) 81 mg PO DAILY Qty: 14 0RF cyproheptadine 4 mg tablet 4 mg PO BEDTIME Qty: 30 0RF (DME) Wheel chair Kit See Rx Instructions .Route Qty: 1 0RF Rx Instructions: 16 inch with elevating leg rest (manual) rosuvastatin 40 mg tablet 40 mg PO DAILY Qty: 30 3RF apixaban 5 mg tablet 5 mg PO BID Qty: 180 1RF cyanocobalamin (vitamin B-12) 1,000 mcg Tablet 1,000 mcg PO DAILY ascorbic acid (vitamin C) 1,000 mg tablet extended release 1,000 mg PO DAILY sertraline 50 mg tablet 25 mg PO DAILY cholecalciferol (vitamin D3) 25 mcg (1,000 unit) capsule 25 mcg PO DAILY (DME) comp.stocking,knee,long,medium Misc See Rx Instructions .Route Qty: 2 0RF Rx Instructions: As directed albuterol sulfate [Ventolin HFA] 90 mcg/actuation HFA aerosol inhaler 2 puff inhalation Q4-6H PRN (Reason: shortness of breath or wheezing) Qty: 8.5 0RF meloxicam 15 mg tablet 15 mg PO DAILY Citrucel 500 mg tablet 500 mg PO DAILY Qty: 90 2RF Rx Instructions: take it with full glass of water polyethylene glycol 3350 [Miralax] 17 gram/dose powder 17 g PO DAILY Qty: 510 2RF Culturelle 15 billion cell capsule, sprinkle 1 cap PO DAILY Qty: 90 2RF Discharge Orders: Discharge Order (Routine); Ordered 06/10/23 Ordered By: Lyla Andrew Diet: Advance to usual diet Activity on Discharge: As tolerated Stand Alone Forms: Patient Portal Discharge page Care Plan Goals: Patient was admitted for generalized weakness, hypertension without source of infection: Patient was treated with IV fluid, midodrine, also given empiric antibiotics-workup including UA,cxr ,blood culture neg @48hrs . leucocytosise thought to be chronic. off antibiotics , no fevers, asymptomatic, received empiric which were discontinued upon discharge since workup negative as above. intially was also question of tia -seen by neuro-less likely tia . mri -negative . Pt -recomended str. Health Concerns: as above. Plan of Treatment: as above. Assessment: as above.
--- NOTE | 2023-06-10 14:15 | MHC.CM.PN ---
A call was received from . ID consult r/t increased WBC. Discharge is on hold for work up. Transport and [facility] have been notified of the delay.
--- NOTE | 2023-06-10 14:22 | P.PNIM_ITS ---
Subjective Subjective Date of Service: 06/10/23 Interval History: persistent leucocytosis Review of Systems no fever denies any new c/o Physical Exam 2 Vital Signs: Vital Signs: Last Vital Signs Temp 96.8 F 06/10/23 07:04 Pulse 80 06/10/23 11:49 Resp 18 06/10/23 07:04 BP 102/55 L 06/10/23 11:49 Pulse Ox 98 06/10/23 07:04 O2 Del Method Room Air 06/10/23 07:04 O2 Flow Rate 2 06/07/23 00:03 BMI result Body Mass Index 19.7 General: AO X 3, no acute distress Resp: CTA bilateral CVS: S1,S2,RRR GI: +BS, NT, no distention Skin: No rash Neuro: motor grossly intact, no focal finding other than unsteady gait Psych: appropriate affect Objective Data Active Medications Acetaminophen (Acetaminophen 325 Mg Tablet) 650 mg PO Q6H PRN PRN Reason: Pain, Mild (Pain Scale 1-3) Albuterol Sulfate (Albuterol Sulfate 90 Mcg 8 Gm Inhaler) 2 puff INHALE Q4H PRN PRN Reason: shortness of breath or wheezing Apixaban (Apixaban 5 Mg Tablet) 5 mg PO BID [facility] Last Admin: 06/10/23 08:11 Dose: 5 mg Documented By: WALESKA Ascorbic Acid (Ascorbic Acid 500 Mg Tablet) 1,000 mg PO DAILY [facility] Last Admin: 06/10/23 08:11 Dose: 1,000 mg Documented By: WALESKA Aspirin (Aspirin Enteric Coated 81 Mg Tablet.) 81 mg PO DAILY [facility] Last Admin: 06/10/23 08:11 Dose: 81 mg Documented By: WALESKA Atorvastatin Calcium (Atorvastatin Calcium 80 Mg Tablet) 80 mg PO DAILY [facility] Last Admin: 06/10/23 08:11 Dose: 80 mg Documented By: WALESKA Cyanocobalamin (Cyanocobalamin (Vitamin B-12) 1,000 Mcg Tablet) 1,000 mcg PO DAILY [facility] Last Admin: 06/10/23 08:11 Dose: 1,000 mcg Documented By: WALESKA Cyproheptadine HCl (Cyproheptadine Hcl 4 Mg Tablet) 4 mg PO BEDTIME [facility] Last Admin: 06/09/23 20:28 Dose: 4 mg Documented By: DARRYN Docusate Sodium (Docusate Sodium 100 Mg Capsule) 100 mg PO DAILY PRN PRN Reason: Constipation Naproxen (Naproxen 500 Mg Tablet) 500 mg PO BID [facility] Last Admin: 06/10/23 08:11 Dose: 500 mg Documented By: WALESKA Ondansetron HCl (Ondansetron Hcl 4 Mg/2 Ml Vial) 4 mg IVPUSH Q8H PRN PRN Reason: Nausea and Vomiting Polyethylene Glycol (Polyethylene Glycol 3350 17 Gm Powd.Pack) 17 gm PO DAILY [facility] Last Admin: 06/10/23 08:12 Dose: 17 gm Documented By: WALESKA Sertraline HCl (Sertraline Hcl 25 Mg Tablet) 25 mg PO DAILY [facility] Last Admin: 06/10/23 08:11 Dose: 25 mg Documented By: WALESKA Vitamin D (Cholecalciferol (Vitamin D3) 25 Mcg Tablet) 25 mcg PO DAILY [facility] Last Admin: 06/10/23 08:11 Dose: 25 mcg Documented By: WALESKA Labs 06/10/23 08:12 06/06/23 14:53 Labs: Laboratory Results - last 24 hr 06/10/23 08:12 MCV 91.4 MCH 29.7 MCHC 32.5 RDW 15.7 Plt Count 424 H MPV 8.4 L Absolute Nucleated RBC 0.000 Nucleated RBC % (auto) 0.0 Hold Green Top See Note Assessment and Plan (1) Hypotension: Status: Acute Plan 88-year-old male with past medical history of CVA peripheral vascular disease, history prostate cancer status post prostatectomy, venous insufficiency, HLD, normocytic anemia, history of SIADH/hyponatremia comes into the hospital with complaints of weakness and being work up for ERUM/stroke. Has leukocytosis without source of infection and now hypotension. HypOtension-without source of infection (No Sepsis) likely from dehydration elevated WBC is chronic. Treated with IVF and 1 dose of 5 mg of midodrine with good effect. IVF has been discontinued, empiric Ceftriaxone and Doxy for 3 days now. Blood cultures negative and will stop antibiotics. Family doesn't want escalation ICU if indicated. check orthostasis Weakness, I don't think this was due to stroke, I suspect this was related to low BPs and there were instances of low BPs on presentation. Unsteady gait is chronic, MRI is scheduled HLD statin History of DVT-- Eliquis Unsteady gait- is chronic, PT eval, to rehab when medically ready to go DVT prophylaxis--eliquis need for inpatient; Hypotension, unsteady gait, SIRS leucocytosis persistent : workup negative ,ua and cxr negative. blood cultures neg id eval noted- rec to evaluate with ct abd since persistent leucocytosis added mannual diff and hematology eval. Family has been updated Time Spent With Patient Time: Total time managing care of this patient today ____ minutes. Quality Stroke Does the patient have a stroke diagnosis?: No VTE Prior VTE?: No VTE Risk Level:: Medical - moderate - high VTE Device Contraindication: Treatment Not Indicated VTE Drug Contraindication: N/A - Med Ordered
[2023-06-10 14:39] LABS: Monocytes Absolute Manual 0.7 X10*3/uL (0.1-1.2); Monocytes Percent Manual 3 % (2-11); Neutrophils Percent Manual 86 % (45-73)
[2023-06-10 14:43] LABS: Acanthocytes 1+ (0-2) /OIF; Band Neutrophils Percent 8 % (3-5); Burr Cells 2+ (3-5) /OIF; Lymphocytes Absolute Manual 0.7 X10*3/uL (1.2-4.9); Lymphocytes Percent Manual 3 % (20-40); Neutrophils Absolute Manual 21.5 X10*3/uL (2.0-8.3); RBC Morphology NOTED
[2023-06-10 14:44] LABS: Ovalocytes 1+ (5-14) /OIF; Toxic Vacuolation PRESENT
[2023-06-10 14:45] LABS: Platelet Estimate SLIGHTLY INCREASED (NORMAL); Platelet Morphology Comment NORMAL
[2023-06-10] MEDS: Lactated Ringers 1,000 ML 80 ML IVCONT (14:57)
[2023-06-10] MEDS: iohexoL 350 MG/ML 100 ML INFUS..BTL IV (16:19)
[2023-06-10] MEDS: Cyproheptadine HCl 4 MG TABLET PO (20:41)
--- NOTE | 2023-06-10 23:13 | W.PM.IDCN ---
History of Present Illness Data of Consult Service Date: 06/10/23 Requesting physician: Lyla Andrew Primary Care Provider: Bobbi Harris MD HPI Reason for consult: leukocytosis,possible infection He presents with being found down and hit head. He has temperature 99.1. WBC 22.1 Blood cultures negative. Review of Systems Review of Systems: Yes all other systems are reviewed and are negative PMFSH Past Medical History Medical History (Updated 06/10/23 @ 23:17 by Jacy Marcelino MD) Leukocytosis Normocytic anemia Hyponatremia Low sodium levels Hypercholesterolemia Prostate cancer Osteoarthritis, shoulder Venous insufficiency COVID-19 virus infection Family History Family History Father Diabetes Family history: reviewed and not pertinent Surgical History Surgical History History of radical prostatectomy Erectile dysfunction following urethral surgery Social History Social History Household Members: Children Household Members Other:: daughter Housing: House Do you presently have visiting nurse or other home services: Yes ([facility]) Alcohol intake: never Patient Tobacco Use Status: Never used Tobacco e-Cigarette/Vaping Use: Never Used Second Hand Smoke Exposure: No Advance Directives Date on File: 08/24/21 service: No Current occupational status: retired 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, [employer]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 [employer] Cognitive needs: Yes (cane) Hearing needs: No Vision needs: Yes Meds Allergies Allergy/AdvReac Type Severity Reaction Status Date / Time No Known Allergies Allergy Mild N/A Verified 06/05/23 10:26 Active Medications: Current Medications Acetaminophen (Acetaminophen 325 Mg Tablet) 650 mg PO Q6H PRN PRN Reason: Pain, Mild (Pain Scale 1-3) Albuterol Sulfate (Albuterol Sulfate 90 Mcg 8 Gm Inhaler) 2 puff INHALE Q4H PRN PRN Reason: shortness of breath or wheezing Apixaban (Apixaban 5 Mg Tablet) 5 mg PO BID [facility] Last Admin: 06/10/23 20:41 Dose: 5 mg Ascorbic Acid (Ascorbic Acid 500 Mg Tablet) 1,000 mg PO DAILY [facility] Last Admin: 06/10/23 08:11 Dose: 1,000 mg Aspirin (Aspirin Enteric Coated 81 Mg Tablet.Dr) 81 mg PO DAILY [facility] Last Admin: 06/10/23 08:11 Dose: 81 mg Atorvastatin Calcium (Atorvastatin Calcium 80 Mg Tablet) 80 mg PO DAILY [facility] Last Admin: 06/10/23 08:11 Dose: 80 mg Cyanocobalamin (Cyanocobalamin (Vitamin B-12) 1,000 Mcg Tablet) 1,000 mcg PO DAILY [facility] Last Admin: 06/10/23 08:11 Dose: 1,000 mcg Cyproheptadine HCl (Cyproheptadine Hcl 4 Mg Tablet) 4 mg PO BEDTIME [facility] Last Admin: 06/10/23 20:41 Dose: 4 mg Docusate Sodium (Docusate Sodium 100 Mg Capsule) 100 mg PO DAILY PRN PRN Reason: Constipation Lactated Ringer's (Lr) 1,000 mls @ 80 mls/hr IVCONT .[id number] [facility] Last Admin: 06/10/23 14:57 Dose: 80 mls/hr Naproxen (Naproxen 500 Mg Tablet) 500 mg PO BID [facility] Last Admin: 06/10/23 20:41 Dose: 500 mg Ondansetron HCl (Ondansetron Hcl 4 Mg/2 Ml Vial) 4 mg IVPUSH Q8H PRN PRN Reason: Nausea and Vomiting Polyethylene Glycol (Polyethylene Glycol 3350 17 Gm Powd.Pack) 17 gm PO DAILY [facility] Last Admin: 06/10/23 08:12 Dose: 17 gm Sertraline HCl (Sertraline Hcl 25 Mg Tablet) 25 mg PO DAILY [facility] Last Admin: 06/10/23 08:11 Dose: 25 mg Vitamin D (Cholecalciferol (Vitamin D3) 25 Mcg Tablet) 25 mcg PO DAILY [facility] Last Admin: 06/10/23 08:11 Dose: 25 mcg Home Medications Medication Instructions Recorded Confirmed Last Taken Type cholecalciferol (vitamin D3) 25 25 mcg PO DAILY 01/17/21 06/05/23 04/01/23 History mcg (1,000 unit) capsule meloxicam 15 mg tablet 15 mg PO DAILY 04/25/22 06/05/23 04/01/23 History ascorbic acid (vitamin C) 1,000 mg 1,000 mg PO DAILY 02/22/23 06/05/23 04/01/23 History tablet,extended release cyanocobalamin (vitamin B-12) 1,000 mcg PO DAILY 02/22/23 06/05/23 04/01/23 History 1,000 mcg tablet sertraline 50 mg tablet 25 mg PO DAILY 06/05/23 06/05/23 Unknown History Physical Exam Vital Signs: Vital Signs: Last Vital Signs Temp 98.2 F 06/10/23 19:31 Pulse 63 06/10/23 19:31 Resp 18 06/10/23 19:31 BP 116/56 L 06/10/23 19:31 Pulse Ox 98 06/10/23 19:31 O2 Del Method Room Air 06/10/23 19:31 O2 Flow Rate 2 06/07/23 00:03 BMI result Body Mass Index 19.7 Const: General: cooperative HEENT: Head: Yes normal to inspection Face and sinus: Yes normal facial exam Mouth: Normal oral and palatal mucosa present Teeth and gingiva: dentition normal Eyes: General: appearance normal, both eyes and all related structures Pupils: Equal, round and reactive pupils present Resp: Effort & Inspection: normal respiratory effort Cardio: Rate: regular rate Rhythm: regular rhythm GI: Palpation (GI): Soft to palpation and nontender : General: Yes no CVA tenderness Back/Spine/Pelvis: Back: no CVA tenderness Skin: General skin exam: no rashes or lesions noted Neuro: General: moves all extremities Cranial nerves: Yes Equal, round and reactive pupils present Extrem: General: Yes normal to inspection Psych: Appearance: grossly normal Results Labs 06/10/23 08:12 06/06/23 14:53 Labs: Short CBC 06/10/23 Range/Units 08:12 WBC 22.9 H (4.8-10.8) X10*3/uL Hgb 10.7 L (14.0-18.0) g/dl Hct 32.9 L (42.0-52.0) % Plt Count 424 H (160-400) X10*3/uL Microbiology Microbiology Results: Microbiology 06/06/23 14:49 Blood - Venous Blood Culture - Preliminary No growth after 48 hours. 06/06/23 14:49 Blood - Venous Blood Culture - Preliminary No growth after 48 hours. Assessment and Plan (1) Brain TIA: Status: Acute (2) Leukocytosis: Status: Acute Causes can include aspiration pneumonitis or occult abdominal infection. He could have liver abscess Plan Check CT abdomen and pelvis. Await cultures and then decide about antibiotics (to give or not). Hematology input Time Spent With Patient Time: Total time managing care of this patient today ____ minutes.
[2023-06-11] VITALS (7 sets, daily range): BP systolic 95–152; BP diastolic 52–77; PULSE 64–75; RESP 16–20; TEMP 36.2–36.7; O2SAT 95–98
[2023-06-11] MEDS: Lactated Ringers 1,000 ML 80 ML IVCONT ×3 (02:24→22:28)
[2023-06-11 08:20] LABS: Hematocrit 32.5 % (42.0-52.0); Hemoglobin 10.5 g/dl (14.0-18.0); Mean Corpuscular HGB Conc 32.3 g/dl (31.0-36.0); Mean Corpuscular Hemoglobin 29.5 pg (27.0-33.0); Mean Corpuscular Volume 91.3 fL (80.0-98.0); Mean Platelet Volume 8.4 fL (9.4-12.4); Platelet Count 389 X10*3/uL (160-400); Red Blood Count 3.56 X10*6/uL (4.60-5.80); Red Cell Distribution Width 15.9 % (11.0-16.0); White Blood Count 17.3 X10*3/uL (4.8-10.8)
[2023-06-11 08:34] LABS: Blood Urea Nitrogen 20 mg/dL (9-16); Creatinine Clr Calc Pharmacy 72.9; Estimated Glomerular Filt Rate > 60
[2023-06-11] MEDS: Aspirin Enteric Coated 81 MG TABLET.DR PO (08:34)
[2023-06-11] MEDS: Cholecalciferol (Vitamin D3) 25 MCG TABLET PO (08:35)
[2023-06-11] MEDS: Atorvastatin Calcium 80 MG TABLET PO (08:35)
[2023-06-11] MEDS: Apixaban 5 MG TABLET PO (08:35)
[2023-06-11] MEDS: NaPROXEN 500 MG TABLET PO (08:35)
[2023-06-11] MEDS: Ascorbic Acid 500 MG TABLET 1000 MG PO (08:35)
[2023-06-11] MEDS: polyethylene glycoL 3350 17 GM POWD.PACK PO (08:36)
[2023-06-11] MEDS: Cyanocobalamin (Vitamin B-12) 1,000 MCG TABLET 1000 MCG PO (08:36)
[2023-06-11] MEDS: Sertraline HCL 25 MG TABLET PO (08:36)
[2023-06-11] MEDS: Milk of Magnesia 30 ML ORAL.SUSP PO (09:12)
--- NOTE | 2023-06-11 10:10 | MHC.CLN ---
F/U DIET=REGULAR. ENSURE MAX PROTEIN TID (450 KCALS, 90 G PROTEIN). TAKES ENSURE TID AT HOME. INTAKE APPEARS USUALLY GOOD, 75-100%. CONTINUE CURRENT DIET AND SUPPLEMENT. FOLLOW FOR PO INTAKE.
--- NOTE | 2023-06-11 12:28 | MHC.CM.PN ---
pt dc cancelled to [facility] cat scan of abdomen showed an abcess all parties notifed
--- NOTE | 2023-06-11 12:49 | P.PNIM_ITS ---
Subjective Subjective Date of Service: 06/12/23 Interval History: leucocytosis /perinephric and iliopsoas hematoma vs abcess Review of Systems feels constipated otherwise denies any new c/o Physical Exam 2 Vital Signs: Vital Signs: Last Vital Signs Temp 97.1 F 06/11/23 11:22 Pulse 71 06/11/23 11:22 Resp 16 06/11/23 11:22 BP 96/53 L 06/11/23 11:22 Pulse Ox 98 06/11/23 11:22 O2 Del Method Room Air 06/11/23 11:22 O2 Flow Rate 2 06/07/23 00:03 BMI result Body Mass Index 19.7 General: AO X 3, no acute distress Resp: CTA bilateral CVS: S1,S2,RRR GI: +BS, NT, no distention Skin: No rash Neuro: motor grossly intact, no focal finding other than unsteady gait Psych: appropriate affect Objective Data Active Medications Acetaminophen (Acetaminophen 325 Mg Tablet) 650 mg PO Q6H PRN PRN Reason: Pain, Mild (Pain Scale 1-3) Albuterol Sulfate (Albuterol Sulfate 90 Mcg 8 Gm Inhaler) 2 puff INHALE Q4H PRN PRN Reason: shortness of breath or wheezing Apixaban (Apixaban 5 Mg Tablet) 5 mg PO BID [facility] Last Admin: 06/11/23 08:35 Dose: 5 mg Documented By: MARKEL Ascorbic Acid (Ascorbic Acid 500 Mg Tablet) 1,000 mg PO DAILY [facility] Last Admin: 06/11/23 08:35 Dose: 1,000 mg Documented By: MARKEL Aspirin (Aspirin Enteric Coated 81 Mg Tablet.) 81 mg PO DAILY [facility] Last Admin: 06/11/23 08:34 Dose: 81 mg Documented By: MARKEL Atorvastatin Calcium (Atorvastatin Calcium 80 Mg Tablet) 80 mg PO DAILY [facility] Last Admin: 06/11/23 08:35 Dose: 80 mg Documented By: MARKEL Cyanocobalamin (Cyanocobalamin (Vitamin B-12) 1,000 Mcg Tablet) 1,000 mcg PO DAILY [facility] Last Admin: 06/11/23 08:36 Dose: 1,000 mcg Documented By: MARKEL Cyproheptadine HCl (Cyproheptadine Hcl 4 Mg Tablet) 4 mg PO BEDTIME [facility] Last Admin: 06/10/23 20:41 Dose: 4 mg Documented By: OZORALB Docusate Sodium (Docusate Sodium 100 Mg Capsule) 100 mg PO DAILY PRN PRN Reason: Constipation Naproxen (Naproxen 500 Mg Tablet) 500 mg PO BID [facility] Last Admin: 06/11/23 08:35 Dose: 500 mg Documented By: MARKEL Ondansetron HCl (Ondansetron Hcl 4 Mg/2 Ml Vial) 4 mg IVPUSH Q8H PRN PRN Reason: Nausea and Vomiting Polyethylene Glycol (Polyethylene Glycol 3350 17 Gm Powd.Pack) 17 gm PO DAILY [facility] Last Admin: 06/11/23 08:36 Dose: 17 gm Documented By: MARKEL Sertraline HCl (Sertraline Hcl 25 Mg Tablet) 25 mg PO DAILY [facility] Last Admin: 06/11/23 08:36 Dose: 25 mg Documented By: MARKEL Vitamin D (Cholecalciferol (Vitamin D3) 25 Mcg Tablet) 25 mcg PO DAILY [facility] Last Admin: 06/11/23 08:35 Dose: 25 mcg Documented By: MARKEL Labs 06/11/23 07:48 06/11/23 07:48 Labs: Laboratory Results - last 24 hr 06/10/23 06/11/23 08:12 07:48 MCV 91.3 MCH 29.5 MCHC 32.3 RDW 15.9 Plt Count 389 MPV 8.4 L Absolute Nucleated RBC 0.000 Nucleated RBC % (auto) 0.0 Neutrophils % (Manual) 86 H Band Neutrophils % 8 H Lymphocytes % (Manual) 3 L Monocytes % (Manual) 3 Abs Neuts (Manual) 21.5 H Lymphocytes # (Manual) 0.7 L Monocytes # (Manual) 0.7 Toxic Vacuolation PRESENT Platelet Estimate SLIGHTLY INCREASED Plt Morphology Comment NORMAL RBC Morphology NOTED Ovalocytes 1+ (5-14) Benedicto Cells 2+ (3-5) Acanthocytes (Spur) 1+ (0-2) Estim Creat Clear Calc 72.9 Estimated GFR > 60 Assessment and Plan (1) Hypotension: Status: Acute Plan 88-year-old male with past medical history of CVA peripheral vascular disease, history prostate cancer status post prostatectomy, venous insufficiency, HLD, normocytic anemia, history of SIADH/hyponatremia comes into the hospital with complaints of weakness and being work up for ERUM/stroke. Has leukocytosis without source of infection and now hypotension. HypOtension-without source of infection (No Sepsis) likely from dehydration elevated WBC is chronic. Treated with IVF and 1 dose of 5 mg of midodrine with good effect. IVF has been discontinued, empiric Ceftriaxone and Doxy for 3 days now. Blood cultures negative and will stop antibiotics. Family doesn't want escalation ICU if indicated. check orthostasis Weakness, I don't think this was due to stroke, I suspect this was related to low BPs and there were instances of low BPs on presentation. Unsteady gait is chronic, MRI is scheduled ct abd noted-possible hematoma's iliopsoas /perinephric area d/w ID and surgery Dr mao -need Ir guided drainge ,hold eliquis/asa npo past midnight -drainge will be done in am since on eliquis and also ate this afternoon HLD statin History of DVT-- Eliquis Unsteady gait- is chronic, PT eval, to rehab when medically ready to go DVT prophylaxis--eliquis need for inpatient; Hypotension, unsteady gait, SIRS leucocytosis persistent : workup negative ,ua and cxr negative. blood cultures neg id eval noted- rec to evaluate with ct abd since persistent leucocytosis added mannual diff and hematology eval. Family has been updated Time Spent With Patient Time: Total time managing care of this patient today ____ minutes. Quality Stroke Does the patient have a stroke diagnosis?: No VTE Prior VTE?: No VTE Risk Level:: Medical - moderate - high VTE Device Contraindication: Treatment Not Indicated VTE Drug Contraindication: N/A - Med Ordered
--- NOTE | 2023-06-11 14:02 | P.PNID_ITS ---
Subjective Subjective Date of Service: 06/11/23 Critical Care Time (minutes): 15 Comment: patient says feels weak and unable to walk Objective Data Labs 06/11/23 07:48 06/11/23 07:48 Labs: Laboratory Results - last 24 hr 06/10/23 06/11/23 08:12 07:48 WBC 17.3 H RBC 3.56 L Hgb 10.5 L Hct 32.5 L MCV 91.3 MCH 29.5 MCHC 32.3 RDW 15.9 Plt Count 389 MPV 8.4 L Absolute Nucleated RBC 0.000 Nucleated RBC % (auto) 0.0 Neutrophils % (Manual) 86 H Band Neutrophils % 8 H Lymphocytes % (Manual) 3 L Monocytes % (Manual) 3 Abs Neuts (Manual) 21.5 H Lymphocytes # (Manual) 0.7 L Monocytes # (Manual) 0.7 Toxic Vacuolation PRESENT Platelet Estimate SLIGHTLY INCREASED Plt Morphology Comment NORMAL RBC Morphology NOTED Ovalocytes 1+ (5-14) Benedicto Cells 2+ (3-5) Acanthocytes (Spur) 1+ (0-2) BUN 20 H Creatinine 0.63 Estim Creat Clear Calc 72.9 Estimated GFR > 60 Microbiology Microbiology Results: Microbiology 06/06/23 14:49 Blood - Venous Blood Culture - Preliminary No growth after 48 hours. 06/06/23 14:49 Blood - Venous Blood Culture - Preliminary No growth after 48 hours. Physical Exam 2 Vital Signs: Vital Signs: Last Vital Signs Temp 97.1 F 06/11/23 11:22 Pulse 71 06/11/23 13:32 Resp 16 06/11/23 11:22 BP 96/53 L 06/11/23 13:32 Pulse Ox 98 06/11/23 13:32 O2 Del Method Room Air 06/11/23 11:22 O2 Flow Rate 2 06/07/23 00:03 BMI result Body Mass Index 19.7 Const: General: cooperative HEENT: Head: Yes normal to inspection Face and sinus: Yes normal facial exam Mouth: Normal oral and palatal mucosa present Teeth and gingiva: d entition normal Eyes: General: appearance normal, both eyes and all related structures P upils: Equal, round and reactive pupils present Resp: Effort & Inspection: normal respiratory effort Cardio: Rate: regular rate Rhythm: regular rhythm GI: Palpation (GI): Soft to palpation and nontender : General: Yes no CVA tenderness Back/Spine/Pelvis: Back: no CVA tenderness Skin: General skin exam: no rashes or lesions noted Neuro: General: moves all extremities Cranial nerves: Yes Equal, round and reactive pupils present Extrem: Other: weakness lower back and legs General: Yes normal to inspection Psych: Appearance: grossly normal Assessment and Plan Assessment and plan (1) Leukocytosis: Problem details: There is large right iliopsoas collection c/w abscess per Radiology and smaller appearing right perinephric collection [id number] extends to liver These collections are likely cause of leukocytosis and not sure yet whether abscess or hematoma likely related to fall which patient recollects Status: Acute Plan Would hold off antibiotics to hopefully get better aspirate. Would check aspirate gram stain and culture and AFB if enough fluid but regular gram stain and culture priority. Would adjust anticoagulants if needed. Would keep in hospital for culture results. Time Spent With Patient Time: Total time managing care of this patient today ____ minutes.
[2023-06-11] MEDS: Cyproheptadine HCl 4 MG TABLET PO (20:20)
[2023-06-12 03:14] VITALS: BP 120/71; PULSE 70; RESP 17; TEMP 36.6; O2SAT 96
[2023-06-12 07:07] VITALS: BP 160/64; PULSE 70; RESP 20; TEMP 36.3; O2SAT 97
[2023-06-12] MEDS: Ascorbic Acid 500 MG TABLET 1000 MG PO (08:43)
[2023-06-12] MEDS: Atorvastatin Calcium 80 MG TABLET PO (08:43)
[2023-06-12] MEDS: Cholecalciferol (Vitamin D3) 25 MCG TABLET PO (08:44)
[2023-06-12] MEDS: Cyanocobalamin (Vitamin B-12) 1,000 MCG TABLET 1000 MCG PO (08:44)
[2023-06-12] MEDS: Acetaminophen 325 MG TABLET 650 MG PO ×2 (08:44→19:53)
[2023-06-12] MEDS: Sertraline HCL 25 MG TABLET PO (08:44)
--- NOTE | 2023-06-12 11:19 | MHC.CM.PN ---
PER MD ROUNDS, PT IS EXPECTED TO DC TOMORROW UPDATES WERE SENT TO [facility]
[2023-06-12] MEDS: Lactated Ringers 1,000 ML 80 ML IVCONT (11:52)
[2023-06-12 12:00] VITALS: BP 134/76; PULSE 72; RESP 18; TEMP 36; O2SAT 97
--- NOTE | 2023-06-12 12:00 | HO.PM.IMPN ---
Subjective Subjective Date of Service: 06/12/23 Interval History: persistent leucocytosis Review of Systems no fever denies any new c/o Physical Exam Vital Signs: Vital Signs: Last Vital Signs Temp 97.3 F 06/12/23 07:07 Pulse 70 06/12/23 07:07 Resp 20 06/12/23 07:07 BP 160/64 H 06/12/23 07:07 Pulse Ox 97 06/12/23 07:07 O2 Del Method Room Air 06/12/23 07:07 O2 Flow Rate 2 06/07/23 00:03 BMI result Body Mass Index 19.7 General: AO X 3, no acute distress Resp: CTA bilateral CVS: S1,S2,RRR GI: +BS, NT, no distention Skin: No rash Neuro: motor grossly intact, no focal finding other than unsteady gait Psych: appropriate affect Objective Data Active Medications Acetaminophen (Acetaminophen 325 Mg Tablet) 650 mg PO Q6H PRN PRN Reason: Pain, Mild (Pain Scale 1-3) Last Admin: 06/12/23 08:44 Dose: 650 mg Documented By: GLADYS Albuterol Sulfate (Albuterol Sulfate 90 Mcg 8 Gm Inhaler) 2 puff INHALE Q4H PRN PRN Reason: shortness of breath or wheezing Apixaban (Apixaban 5 Mg Tablet) 5 mg PO BID [facility] Last Admin: 06/11/23 08:35 Dose: 5 mg Documented By: MARKEL Ascorbic Acid (Ascorbic Acid 500 Mg Tablet) 1,000 mg PO DAILY [facility] Last Admin: 06/12/23 08:43 Dose: 1,000 mg Documented By: GLADYS Aspirin (Aspirin Enteric Coated 81 Mg Tablet.) 81 mg PO DAILY [facility] Last Admin: 06/11/23 08:34 Dose: 81 mg Documented By: MARKEL Atorvastatin Calcium (Atorvastatin Calcium 80 Mg Tablet) 80 mg PO DAILY [facility] Last Admin: 06/12/23 08:43 Dose: 80 mg Documented By: GLADYS Cyanocobalamin (Cyanocobalamin (Vitamin B-12) 1,000 Mcg Tablet) 1,000 mcg PO DAILY [facility] Last Admin: 06/12/23 08:44 Dose: 1,000 mcg Documented By: GLADYS Cyproheptadine HCl (Cyproheptadine Hcl 4 Mg Tablet) 4 mg PO BEDTIME [facility] Last Admin: 06/11/23 20:20 Dose: 4 mg Documented By: OPAL Docusate Sodium (Docusate Sodium 100 Mg Capsule) 100 mg PO DAILY PRN PRN Reason: Constipation Lactated Ringer's (Lr) 1,000 mls @ 80 mls/hr IVCONT .[id number] [facility] Last Admin: 06/12/23 11:52 Dose: 80 mls/hr Documented By: GLADYS Ondansetron HCl (Ondansetron Hcl 4 Mg/2 Ml Vial) 4 mg IVPUSH Q8H PRN PRN Reason: Nausea and Vomiting Polyethylene Glycol (Polyethylene Glycol 3350 17 Gm Powd.Pack) 17 gm PO DAILY [facility] Last Admin: 06/12/23 08:45 Dose: Not Given Documented By: GLADYS Non-Admin Reason: Patient Refused Sertraline HCl (Sertraline Hcl 25 Mg Tablet) 25 mg PO DAILY [facility] Last Admin: 06/12/23 08:44 Dose: 25 mg Documented By: GLADYS Vitamin D (Cholecalciferol (Vitamin D3) 25 Mcg Tablet) 25 mcg PO DAILY [facility] Last Admin: 06/12/23 08:44 Dose: 25 mcg Documented By: GLADYS Labs 06/11/23 07:48 06/11/23 07:48 Microbiology Microbiology Results: Microbiology 06/06/23 14:49 Blood Culture - Final Blood - Venous No growth after 5 days. 06/06/23 14:49 Blood Culture - Final Blood - Venous No growth after 5 days. Assessment and Plan (1) Hypotension: Status: Acute Plan 88-year-old male with past medical history of CVA peripheral vascular disease, history prostate cancer status post prostatectomy, venous insufficiency, HLD, normocytic anemia, history of SIADH/hyponatremia comes into the hospital with complaints of weakness and being work up for ERUM/stroke. Has leukocytosis without source of infection and now hypotension. HypOtension-without source of infection (No Sepsis) likely from dehydration elevated WBC is chronic. Treated with IVF and 1 dose of 5 mg of midodrine with good effect. IVF has been discontinued, empiric Ceftriaxone and Doxy for 3 days now. Blood cultures negative and will stop antibiotics. Family doesn't want escalation ICU if indicated. check orthostasis Weakness, I don't think this was due to stroke, I suspect this was related to low BPs and there were instances of low BPs on presentation. Unsteady gait is chronic, MRI is scheduled ct abd noted-possible hematoma's iliopsoas /perinephric area d/w ID and surgery Dr mao -need Ir guided drainge ,hold eliquis/asa npo past midnight -drainge will be done in am since on eliquis and also ate this afternoon-labs added HLD statin History of DVT-- hold Eliquis Unsteady gait- is chronic, PT eval, to rehab when medically ready to go DVT prophylaxis--eliquis need for inpatient; Hypotension, unsteady gait, SIRS leucocytosis persistent : workup negative ,ua and cxr negative. blood cultures neg id eval noted- rec to evaluate with ct abd since persistent leucocytosis added mannual diff and hematology eval-workup bcr/abl sdded . dvt prophylax:scd -possible hemtomas as above. Family and patient has been updatedin detail-they understands & agreement with above plan. ongoing inpatient need: workup for hematoma's iliopsoas /perinephric area,ID follow up. Time Spent With Patient Time: Total time managing care of this patient today ____ minutes. Quality Stroke Does the patient have a stroke diagnosis?: No VTE Prior VTE?: No VTE Risk Level:: Medical - moderate - high VTE Device Contraindication: Treatment Not Indicated VTE Drug Contraindication: N/A - Med Ordered
[2023-06-12 17:57] VITALS: BP 129/80; PULSE 78; RESP 20; TEMP 36.2; O2SAT 93
[2023-06-12 19:15] VITALS: BP 107/58; PULSE 70; RESP 17; TEMP 36.5; O2SAT 95
[2023-06-12] MEDS: Cyproheptadine HCl 4 MG TABLET PO (19:52)
[2023-06-12 23:32] VITALS: BP 125/66; PULSE 71; RESP 17; TEMP 36.5; O2SAT 97
[2023-06-13 03:29] VITALS: BP 130/70; PULSE 80; RESP 17; TEMP 36.9; O2SAT 97
[2023-06-13 07:12] VITALS: BP 134/67; PULSE 67; RESP 18; TEMP 36.1; O2SAT 97
[2023-06-13] MEDS: Cyanocobalamin (Vitamin B-12) 1,000 MCG TABLET 1000 MCG PO (08:34)
[2023-06-13] MEDS: Ascorbic Acid 500 MG TABLET 1000 MG PO (08:34)
[2023-06-13] MEDS: Atorvastatin Calcium 80 MG TABLET PO (08:34)
[2023-06-13] MEDS: Cholecalciferol (Vitamin D3) 25 MCG TABLET PO (08:34)
[2023-06-13] MEDS: Sertraline HCL 25 MG TABLET PO (08:34)
--- NOTE | 2023-06-13 10:03 | MHC.CLN ---
F/U DIET=REGULAR. RECEIVING ENSURE MAX PROTEIN TID (450 KCALS, 90 G PROTEIN). TAKES ENSURE TID AT HOME. INTAKE USUALLY 50-100%. CONTINUE CURRENT DIET AND SUPPLEMENT. FOLLOW FOR PO INTAKE.
[2023-06-13 11:11] VITALS: BP 134/67; PULSE 67; O2SAT 97
[2023-06-13 12:00] VITALS: BP 125/66; PULSE 67; RESP 18; TEMP 36.1; O2SAT 93
[2023-06-13] MEDS: Acetaminophen 325 MG TABLET 650 MG PO (12:49)
--- NOTE | 2023-06-13 14:20 | MHC.CM.PN ---
per rounds pt not ready for dc waiting for cultures rmoc still following
--- NOTE | 2023-06-13 14:22 | MHC.CM.PN ---
per rounds pt is not medically clear for dc plan remains home
[2023-06-13 16:00] VITALS: BP 123/71; PULSE 62; RESP 16; TEMP 36.4; O2SAT 96
--- NOTE | 2023-06-13 16:23 | HO.PM.IMPN ---
Subjective Subjective Date of Service: 06/13/23 Interval History: iliopsoas /pernephric hematoma Review of Systems no fever ,denies any new c/o Physical Exam Vital Signs: Vital Signs: Last Vital Signs Temp 97.6 F 06/13/23 16:00 Pulse 62 06/13/23 16:00 Resp 16 06/13/23 16:00 BP 123/71 06/13/23 16:00 Pulse Ox 96 06/13/23 16:00 O2 Del Method Room Air 06/13/23 16:00 O2 Flow Rate 2 06/07/23 00:03 BMI result Body Mass Index 19.7 General: AO X 3, no acute distress Resp: CTA bilateral CVS: S1,S2,RRR GI: +BS, NT, no distention Skin: No rash Neuro: motor grossly intact, no focal finding other than unsteady gait Psych: appropriate affect Objective Data Active Medications Acetaminophen (Acetaminophen 325 Mg Tablet) 650 mg PO Q6H PRN PRN Reason: Pain, Mild (Pain Scale 1-3) Last Admin: 06/13/23 12:49 Dose: 650 mg Documented By: GLADYS Albuterol Sulfate (Albuterol Sulfate 90 Mcg 8 Gm Inhaler) 2 puff INHALE Q4H PRN PRN Reason: shortness of breath or wheezing Apixaban (Apixaban 5 Mg Tablet) 5 mg PO BID [facility] Last Admin: 06/11/23 08:35 Dose: 5 mg Documented By: MARKEL Ascorbic Acid (Ascorbic Acid 500 Mg Tablet) 1,000 mg PO DAILY [facility] Last Admin: 06/13/23 08:34 Dose: 1,000 mg Documented By: GLADYS Aspirin (Aspirin Enteric Coated 81 Mg Tablet.) 81 mg PO DAILY [facility] Last Admin: 06/11/23 08:34 Dose: 81 mg Documented By: MARKEL Atorvastatin Calcium (Atorvastatin Calcium 80 Mg Tablet) 80 mg PO DAILY [facility] Last Admin: 06/13/23 08:34 Dose: 80 mg Documented By: GLADYS Cyanocobalamin (Cyanocobalamin (Vitamin B-12) 1,000 Mcg Tablet) 1,000 mcg PO DAILY [facility] Last Admin: 06/13/23 08:34 Dose: 1,000 mcg Documented By: GLADYS Cyproheptadine HCl (Cyproheptadine Hcl 4 Mg Tablet) 4 mg PO BEDTIME [facility] Last Admin: 06/12/23 19:52 Dose: 4 mg Documented By: GLADYS Docusate Sodium (Docusate Sodium 100 Mg Capsule) 100 mg PO DAILY PRN PRN Reason: Constipation Ondansetron HCl (Ondansetron Hcl 4 Mg/2 Ml Vial) 4 mg IVPUSH Q8H PRN PRN Reason: Nausea and Vomiting Polyethylene Glycol (Polyethylene Glycol 3350 17 Gm Powd.Pack) 17 gm PO DAILY [facility] Last Admin: 06/13/23 08:36 Dose: Not Given Documented By: GLADYS Non-Admin Reason: Patient Refused Sertraline HCl (Sertraline Hcl 25 Mg Tablet) 25 mg PO DAILY [facility] Last Admin: 06/13/23 08:34 Dose: 25 mg Documented By: GLADYS Vitamin D (Cholecalciferol (Vitamin D3) 25 Mcg Tablet) 25 mcg PO DAILY [facility] Last Admin: 06/13/23 08:34 Dose: 25 mcg Documented By: GLADYS Labs 06/11/23 07:48 06/11/23 07:48 Microbiology Microbiology Results: Microbiology 06/12/23 16:40 Gram Stain - Final Abdomen - Abscess Routine Culture - Preliminary Gram negative janelle Anaerobic Culture - Preliminary Culture in progress. Assessment and Plan (1) Leukocytosis: Status: Acute (2) Abdominal hematoma: Status: Acute Plan 88-year-old male with past medical history of CVA peripheral vascular disease, history prostate cancer status post prostatectomy, venous insufficiency, HLD, normocytic anemia, history of SIADH/hyponatremia comes into the hospital with complaints of weakness and being work up for ERUM/stroke. Has leukocytosis without source of infection and now hypotension. HypOtension-without source of infection (No Sepsis) likely from dehydration elevated WBC is chronic. Treated with IVF and 1 dose of 5 mg of midodrine with good effect. IVF has been discontinued, empiric Ceftriaxone and Doxy for 3 days now. Blood cultures negative and will stop antibiotics. Family doesn't want escalation ICU if indicated. check orthostasis Weakness, I don't think this was due to stroke, I suspect this was related to low BPs and there were instances of low BPs on presentation. Unsteady gait is chronic, MRI is scheduled ct abd noted-possible hematoma's iliopsoas /perinephric area d/w ID and surgery Dr mao -need Ir guided drainge ,hold eliquis/asa npo past midnight -drainge will be done in am since on eliquis and also ate this afternoon-labs added HLD statin History of DVT-- hold Eliquis Unsteady gait- is chronic, PT eval, to rehab when medically ready to go DVT prophylaxis--eliquis need for inpatient; Hypotension, unsteady gait, SIRS leucocytosis persistent : workup negative ,ua and cxr negative. blood cultures neg id eval noted- rec to evaluate with ct abd since persistent leucocytosis added mannual diff and hematology eval-workup bcr/abl sdded . dvt prophylax:scd -possible hemtomas as above. Family and patient has been updatedin detail-they understands & agreement with above plan. ongoing inpatient need: workup for hematoma's iliopsoas /perinephric area,ID follow up. Time Spent With Patient Time: Total time managing care of this patient today ____ minutes. Quality Stroke Does the patient have a stroke diagnosis?: No VTE Prior VTE?: No VTE Risk Level:: Medical - moderate - high VTE Device Contraindication: Treatment Not Indicated VTE Drug Contraindication: N/A - Med Ordered
[2023-06-13 19:11] VITALS: BP 108/57; PULSE 63; RESP 17; TEMP 36.2; O2SAT 97
[2023-06-13] MEDS: Cyproheptadine HCl 4 MG TABLET PO (20:01)
[2023-06-14] VITALS (7 sets, daily range): BP systolic 112–164; BP diastolic 58–84; PULSE 63–74; RESP 16–19; TEMP 35.6–36.8; O2SAT 94–99
[2023-06-14] MEDS: Acetaminophen 325 MG TABLET 650 MG PO ×2 (09:04→19:41)
[2023-06-14] MEDS: Ascorbic Acid 500 MG TABLET 1000 MG PO (09:05)
[2023-06-14] MEDS: Cholecalciferol (Vitamin D3) 25 MCG TABLET PO (09:06)
[2023-06-14] MEDS: Cyanocobalamin (Vitamin B-12) 1,000 MCG TABLET 1000 MCG PO (09:06)
[2023-06-14] MEDS: Atorvastatin Calcium 80 MG TABLET PO (09:06)
[2023-06-14] MEDS: Sertraline HCL 25 MG TABLET PO (09:06)
--- NOTE | 2023-06-14 10:00 | HO.PM.IMPN ---
Subjective Subjective Date of Service: 06/14/23 Interval History: possible hematoma infected Review of Systems denies any fever has some sianess no abd pain or nausea or vomitin Physical Exam Vital Signs: Vital Signs: Last Vital Signs Temp 96.1 F L 06/14/23 07:24 Pulse 65 06/14/23 07:24 Resp 16 06/14/23 07:24 BP 142/82 H 06/14/23 07:24 Pulse Ox 97 06/14/23 07:24 O2 Del Method Room Air 06/14/23 07:24 O2 Flow Rate 2 06/07/23 00:03 BMI result Body Mass Index 19.7 General: AO X 3, no acute distress Resp: CTA bilateral CVS: S1,S2,RRR GI: +BS, NT, no distention Skin: No rash Neuro: motor grossly intact, no focal finding other than unsteady gait Psych: appropriate affect Objective Data Active Medications Acetaminophen (Acetaminophen 325 Mg Tablet) 650 mg PO Q6H PRN PRN Reason: Pain, Mild (Pain Scale 1-3) Last Admin: 06/14/23 09:04 Dose: 650 mg Documented By: JEAN Albuterol Sulfate (Albuterol Sulfate 90 Mcg 8 Gm Inhaler) 2 puff INHALE Q4H PRN PRN Reason: shortness of breath or wheezing Apixaban (Apixaban 5 Mg Tablet) 5 mg PO BID [facility] Last Admin: 06/11/23 08:35 Dose: 5 mg Documented By: MARKEL Ascorbic Acid (Ascorbic Acid 500 Mg Tablet) 1,000 mg PO DAILY [facility] Last Admin: 06/14/23 09:05 Dose: 1,000 mg Documented By: JEAN Aspirin (Aspirin Enteric Coated 81 Mg Tablet.) 81 mg PO DAILY [facility] Last Admin: 06/11/23 08:34 Dose: 81 mg Documented By: MARKEL Atorvastatin Calcium (Atorvastatin Calcium 80 Mg Tablet) 80 mg PO DAILY [facility] Last Admin: 06/14/23 09:06 Dose: 80 mg Documented By: JEAN Cyanocobalamin (Cyanocobalamin (Vitamin B-12) 1,000 Mcg Tablet) 1,000 mcg PO DAILY [facility] Last Admin: 06/14/23 09:06 Dose: 1,000 mcg Documented By: JEAN Cyproheptadine HCl (Cyproheptadine Hcl 4 Mg Tablet) 4 mg PO BEDTIME [facility] Last Admin: 06/13/23 20:01 Dose: 4 mg Documented By: CATY Docusate Sodium (Docusate Sodium 100 Mg Capsule) 100 mg PO DAILY PRN PRN Reason: Constipation Piperacillin Sod/Tazobactam (Sod 3.375 gm/ Sodium Chloride) 50 mls @ 100 mls/hr IV Q6H [facility] Last Admin: 06/14/23 09:13 Dose: 100 mls/hr Documented By: JEAN Ondansetron HCl (Ondansetron Hcl 4 Mg/2 Ml Vial) 4 mg IVPUSH Q8H PRN PRN Reason: Nausea and Vomiting Polyethylene Glycol (Polyethylene Glycol 3350 17 Gm Powd.Pack) 17 gm PO DAILY [facility] Last Admin: 06/14/23 09:13 Dose: Not Given Documented By: JEAN Non-Admin Reason: Patient Refused Sertraline HCl (Sertraline Hcl 25 Mg Tablet) 25 mg PO DAILY [facility] Last Admin: 06/14/23 09:06 Dose: 25 mg Documented By: JEAN Vitamin D (Cholecalciferol (Vitamin D3) 25 Mcg Tablet) 25 mcg PO DAILY [facility] Last Admin: 06/14/23 09:06 Dose: 25 mcg Documented By: JEAN Labs 06/11/23 07:48 06/11/23 07:48 Microbiology Microbiology Results: Microbiology 06/12/23 16:40 Gram Stain - Final Abdomen - Abscess Routine Culture - Final Escherichia coli Anaerobic Culture - Preliminary Culture in progress. Assessment and Plan (1) Leukocytosis: Status: Acute (2) Abdominal hematoma: Status: Acute Plan 88-year-old male with past medical history of CVA peripheral vascular disease, history prostate cancer status post prostatectomy, venous insufficiency, HLD, normocytic anemia, history of SIADH/hyponatremia comes into the hospital with complaints of weakness and being work up for ERUM/stroke. Has leukocytosis without source of infection and now hypotension. 1.HypOtension-without source of infection (No Sepsis) likely from dehydration elevated WBC is chronic. Treated with IVF and 1 dose of 5 mg of midodrine with good effect. IVF has been discontinued, empiric Ceftriaxone and Doxy for 3 days now. Blood cultures negative and will stop antibiotics. Family doesn't want escalation ICU if indicated. orthostasis neg ct abd noted-possible hematoma's iliopsoas /perinephric area got IR guided drainge ,hold eliquis/asa got drainage -on 05/13/23 -right flank area -growing gram neg continue zosyn(started on 05/14/23). hold eliquis. above plan d/w surgery HLD statin History of DVT-- hold Eliquis Unsteady gait- is chronic, PT eval, to rehab when medically ready to go DVT prophylaxis- off ac due to possible hematomas( nonocculsive right dvt as per may). ambulate hold eliquis need for inpatient; Hypotension, unsteady gait, SIRS leucocytosis persistent : workup negative ,ua and cxr negative. blood cultures neg id eval noted hematology eval-workup bcr/abl pending . in addition please see . as per chart review:Weakness, thought to be less likely stroke ,suspect this was related to low BPs and there were instances of low BPs on presentation. Unsteady gait is chronic, MRI axel neg (06/09/23). dvt prophylax:scd -possible hemtomas as above. Family and patient has been updatedin detail-they understands & agreement with above plan. ongoing inpatient need: workup for hematoma's iliopsoas /perinephric area,ID follow up. Above plan d/w with [facility] ([facility]) - agree with above plan. Time Spent With Patient Time: Total time managing care of this patient today ____ minutes. Quality Stroke Does the patient have a stroke diagnosis?: No VTE Prior VTE?: No VTE Risk Level:: Medical - moderate - high VTE Device Contraindication: Treatment Not Indicated VTE Drug Contraindication: N/A - Med Ordered
--- NOTE | 2023-06-14 13:32 | PM.IDPN ---
Subjective Subjective Date of Service: 06/14/23 Critical Care Time (minutes): 15 Comment: he is sleeping,not on oxygen Objective Data Labs 06/11/23 07:48 06/11/23 07:48 Microbiology Microbiology Results: Microbiology 06/12/23 16:40 Abdomen - Abscess Gram Stain - Final 06/12/23 16:40 Abdomen - Abscess Routine Culture - Final Escherichia coli 06/12/23 16:40 Abdomen - Abscess Anaerobic Culture - Preliminary Culture in progress. 06/06/23 14:49 Blood - Venous Blood Culture - Final No growth after 5 days. 06/06/23 14:49 Blood - Venous Blood Culture - Final No growth after 5 days. Physical Exam Vital Signs: Vital Signs: Last Vital Signs Temp 96.1 F L 06/14/23 12:00 Pulse 63 06/14/23 12:00 Resp 16 06/14/23 12:00 BP 112/58 L 06/14/23 12:00 Pulse Ox 99 06/14/23 12:00 O2 Del Method Room Air 06/14/23 12:00 O2 Flow Rate 2 06/07/23 00:03 BMI result Body Mass Index 19.7 Const: General: comfortable Eyes: General: appearance normal, both eyes and all related structures Resp: Effort & Inspection: normal respiratory effort Cardio: Rate: regular rate Rhythm: regular rhythm GI: Inspection: Yes normal to inspection Assessment and Plan Assessment and plan (1) Abdominal hematoma: Problem details: Abscess abdomen, E coli aspirate,moya sensitive, seeded but no signs of organ rupture causing E coli Status: Acute Assessment and Plan: Agree with piperacillin/tazobactam ,day 2. Possible treat total 10-14 days finish with Augmentin but check CT abdomen again before switch to oral antibiotic and dont switch unless abscess cavities less than 2 cm. (2) Abscess: Status: Acute Time Spent With Patient Time: Total time managing care of this patient today ____ minutes.
[2023-06-14] MEDS: Cyproheptadine HCl 4 MG TABLET PO (19:41)
--- NOTE | 2023-06-14 20:37 | PM.CNGS ---
History of Present Illness Consult details Consult date: 06/14/23 Requesting physician: Lyla Andrew Narrative: The pt is an 88 year old male who has had several falls in the past and is on eliquis and aspirin for afib? DVT in past. He was brought to opital for weakness and not feeling well and kept spiking temps and elevated wbc. w/u done with CT showed large collection in iliopsoas and near liver area. CT guided drainage showed blood but cultures of the aspirate grew out ecoli. Pt being treated with antibiotics and feeling well. ? source of infected hematoma - can get spontaneous bleed of the muscle there especially with falls and anticoagulation - pressure usually tamponades off - hct is down but not worsening than before. Why would the blood then get infected - pt had appnedectomy in remote past so not like retrocecal issue. Diverticulitis on right side rare. ? pt with prior hisotry of pyleonephritis? At this point the wbc is decreasing, pt is comfortable, drain draining bloody fluid - nothing that looks like abscess. Review of Systems Review of Systems: hard to get a very reliable history from the pt Yes all other systems are reviewed and are negative [facility] Past Medical History Medical History (Updated 06/14/23 @ 13:34 by Jacy Marcelino MD) Abscess Leukocytosis Normocytic anemia Hyponatremia Low sodium levels Hypercholesterolemia Prostate cancer Osteoarthritis, shoulder Venous insufficiency COVID-19 virus infection Family History Family History Father Diabetes Family history: reviewed and not pertinent Surgical History Surgical History History of radical prostatectomy Erectile dysfunction following urethral surgery Social History Social History Household Members: Children Household Members Other:: daughter Housing: House Do you presently have visiting nurse or other home services: Yes ([facility]) Alcohol intake: never Patient Tobacco Use Status: Never used Tobacco e-Cigarette/Vaping Use: Never Used Second Hand Smoke Exposure: No Advance Directives Date on File: 08/24/21 service: No Current occupational status: retired 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, 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 [employer] Cognitive needs: Yes (cane) Hearing needs: No Vision needs: Yes Meds Allergies Allergy/AdvReac Type Severity Reaction Status Date / Time No Known Allergies Allergy Mild N/A Verified 06/05/23 10:26 Active Medications: Current Medications Acetaminophen (Acetaminophen 325 Mg Tablet) 650 mg PO Q6H PRN PRN Reason: Pain, Mild (Pain Scale 1-3) Last Admin: 06/14/23 19:41 Dose: 650 mg Albuterol Sulfate (Albuterol Sulfate 90 Mcg 8 Gm Inhaler) 2 puff INHALE Q4H PRN PRN Reason: shortness of breath or wheezing Apixaban (Apixaban 5 Mg Tablet) 5 mg PO BID [facility] Last Admin: 06/11/23 08:35 Dose: 5 mg Ascorbic Acid (Ascorbic Acid 500 Mg Tablet) 1,000 mg PO DAILY [facility] Last Admin: 06/14/23 09:05 Dose: 1,000 mg Aspirin (Aspirin Enteric Coated 81 Mg Tablet.Dr) 81 mg PO DAILY [facility] Last Admin: 06/11/23 08:34 Dose: 81 mg Atorvastatin Calcium (Atorvastatin Calcium 80 Mg Tablet) 80 mg PO DAILY [facility] Last Admin: 06/14/23 09:06 Dose: 80 mg Cyanocobalamin (Cyanocobalamin (Vitamin B-12) 1,000 Mcg Tablet) 1,000 mcg PO DAILY [facility] Last Admin: 06/14/23 09:06 Dose: 1,000 mcg Cyproheptadine HCl (Cyproheptadine Hcl 4 Mg Tablet) 4 mg PO BEDTIME [facility] Last Admin: 06/14/23 19:41 Dose: 4 mg Docusate Sodium (Docusate Sodium 100 Mg Capsule) 100 mg PO DAILY PRN PRN Reason: Constipation Piperacillin Sod/Tazobactam (Sod 3.375 gm/ Sodium Chloride) 50 mls @ 100 mls/hr IV Q6H [facility] Last Infusion: 06/14/23 20:20 Dose: Infused Ondansetron HCl (Ondansetron Hcl 4 Mg/2 Ml Vial) 4 mg IVPUSH Q8H PRN PRN Reason: Nausea and Vomiting Polyethylene Glycol (Polyethylene Glycol 3350 17 Gm Powd.Pack) 17 gm PO DAILY [facility] Last Admin: 06/14/23 09:13 Dose: Not Given Sertraline HCl (Sertraline Hcl 25 Mg Tablet) 25 mg PO DAILY [facility] Last Admin: 06/14/23 09:06 Dose: 25 mg Vitamin D (Cholecalciferol (Vitamin D3) 25 Mcg Tablet) 25 mcg PO DAILY [facility] Last Admin: 06/14/23 09:06 Dose: 25 mcg Home Medications Medication Instructions Recorded Confirmed Last Taken Type cholecalciferol (vitamin D3) 25 25 mcg PO DAILY 01/17/21 06/05/23 04/01/23 History mcg (1,000 unit) capsule meloxicam 15 mg tablet 15 mg PO DAILY 04/25/22 06/05/23 04/01/23 History ascorbic acid (vitamin C) 1,000 mg 1,000 mg PO DAILY 02/22/23 06/05/23 04/01/23 History tablet,extended release cyanocobalamin (vitamin B-12) 1,000 mcg PO DAILY 02/22/23 06/05/23 04/01/23 History 1,000 mcg tablet sertraline 50 mg tablet 25 mg PO DAILY 06/05/23 06/05/23 Unknown History Physical Exam Vital Signs: Vital Signs: Last Vital Signs Temp 98.2 F 06/14/23 19:19 Pulse 68 06/14/23 19:19 Resp 16 06/14/23 19:19 BP 115/59 L 06/14/23 19:19 Pulse Ox 95 06/14/23 19:19 O2 Del Method Room Air 06/14/23 19:19 O2 Flow Rate 2 06/07/23 00:03 BMI result Body Mass Index 19.7 Const: General: cooperative, healthy appearing, comfortable, no acute distress, alert and awake Nutritional Appearance: average body habitus HEENT: Head: Yes normal to inspection Cardio: Rate: regular rate Rhythm: regular rhythm GI: Other: abdomen soft nontender cva no tenderness the drainage catheter with bloody fluid no purulence Inspection: Yes normal to inspection Psych: Other: pt is awak and responsive and discussions are appropriate but then gets somewhat confused Appearance: grossly normal Mental Status: mental status grossly normal Results Labs 06/15/23 05:29 06/15/23 05:29 Labs: Urine 06/05/23 Range/Units 14:48 Urine Color Yellow Urine Appearance Clear Urine pH 6.5 (5.0-9.0) Ur Specific [place] >= 1.030 H (1.005-1.025) Urine Protein 100 (2+) H (Neg-Trace) mg/dL Urine Glucose (UA) Negative (Negative) mg/dL All other labs normal. Imaging Abdomen CT scan report/results: report reviewed and image reviewed CT scan - pelvis: report reviewed and image reviewed Assessment and Plan (1) Abdominal hematoma: Status: Acute Plan 88 year old male with retroperitoneal hematoma on the right probably due to fall and his anticoagulation status - ? why it would have gotten infected. ecoli source can be GI or - no obvious issue with either. agree to cont with drainage and antibiotics to cover the cultures for 10-14 days. keep drain in place for about 10 days and before dc can repeat the ct scan and see if drain and antibiotics has reduced the collection before pulling it out. check urine. Pt can fu with surgery as outpt to remove the drain. should consider the risks vs benefits for anticoagulation for this man - falls and bleeds etc. vs risk for CVA etc. Time Spent With Patient Time: Total time managing care of this patient today ____ minutes. Procedures Date of Service Date of Service: 06/15/23
[2023-06-15 03:08] VITALS: BP 139/60; PULSE 73; RESP 18; TEMP 36.4; O2SAT 97
[2023-06-15 06:03] LABS: Hematocrit 31.9 % (42.0-52.0); Hemoglobin 10.1 g/dl (14.0-18.0); Mean Corpuscular HGB Conc 31.7 g/dl (31.0-36.0); Mean Corpuscular Hemoglobin 29.2 pg (27.0-33.0); Mean Corpuscular Volume 92.2 fL (80.0-98.0); Mean Platelet Volume 9.1 fL (9.4-12.4); Platelet Count 271 X10*3/uL (160-400); Red Blood Count 3.46 X10*6/uL (4.60-5.80); White Blood Count 10.1 X10*3/uL (4.8-10.8)
[2023-06-15 06:21] LABS: Anion Gap 13 (12-20); Blood Urea Nitrogen 15 mg/dL (9-16); Carbon Dioxide 23 mmol/L (22-29); Chloride 105 mmol/L (96-108); Creatinine Clr Calc Pharmacy 70.6; Estimated Glomerular Filt Rate > 60; Glucose Random 82 mg/dL (60-115); Sodium 137 mmol/L (135-145)
[2023-06-15 06:58] VITALS: BP 138/83; PULSE 72; RESP 16; TEMP 36; O2SAT 97
[2023-06-15] MEDS: Cholecalciferol (Vitamin D3) 25 MCG TABLET PO (07:32)
[2023-06-15] MEDS: Ascorbic Acid 500 MG TABLET 1000 MG PO (07:32)
[2023-06-15] MEDS: Acetaminophen 325 MG TABLET 650 MG PO (07:32)
[2023-06-15] MEDS: Atorvastatin Calcium 80 MG TABLET PO (07:32)
[2023-06-15] MEDS: Cyanocobalamin (Vitamin B-12) 1,000 MCG TABLET 1000 MCG PO (07:32)
[2023-06-15] MEDS: Sertraline HCL 25 MG TABLET PO (07:32)
--- NOTE | 2023-06-15 08:44 | HO.PM.IMPN ---
Subjective Subjective Date of Service: 06/15/23 Interval History: possible infected hematoma Review of Systems no soarness has left big toe pain (?ingrown nail) no nausea or vomiting or abd pain passing bm's Physical Exam Vital Signs: Vital Signs: Last Vital Signs Temp 96.8 F 06/15/23 06:58 Pulse 72 06/15/23 06:58 Resp 16 06/15/23 06:58 BP 138/83 06/15/23 06:58 Pulse Ox 97 06/15/23 06:58 O2 Del Method Room Air 06/15/23 06:58 O2 Flow Rate 2 06/07/23 00:03 BMI result Body Mass Index 19.7 General: AO X 3, no acute distress Resp: CTA bilateral CVS: S1,S2,RRR GI: +BS, NT, no distention Skin: No rash Neuro: motor grossly intact, no focal finding other than unsteady gait Psych: appropriate affect Objective Data Active Medications Acetaminophen (Acetaminophen 325 Mg Tablet) 650 mg PO Q6H PRN PRN Reason: Pain, Mild (Pain Scale 1-3) Last Admin: 06/15/23 07:32 Dose: 650 mg Documented By: FARIDEH Albuterol Sulfate (Albuterol Sulfate 90 Mcg 8 Gm Inhaler) 2 puff INHALE Q4H PRN PRN Reason: shortness of breath or wheezing Apixaban (Apixaban 5 Mg Tablet) 5 mg PO BID COUNT INCLUDES [facility] Last Admin: 06/11/23 08:35 Dose: 5 mg Documented By: MARKEL Ascorbic Acid (Ascorbic Acid 500 Mg Tablet) 1,000 mg PO DAILY COUNT INCLUDES [facility] Last Admin: 06/15/23 07:32 Dose: 1,000 mg Documented By: FARIDEH Aspirin (Aspirin Enteric Coated 81 Mg Tablet.) 81 mg PO DAILY COUNT [facility]CLUDES [facility] Last Admin: 06/11/23 08:34 Dose: 81 mg Documented By: MARKEL Atorvastatin Calcium (Atorvastatin Calcium 80 Mg Tablet) 80 mg PO DAILY [facility]CLUD[facility] Last Admin: 06/15/23 07:32 Dose: 80 mg Documented By: FARIDEH Cyanocobalamin (Cyanocobalamin (Vitamin B-12) 1,000 Mcg Tablet) 1,000 mcg PO DAILY [facility] Last Admin: 06/15/23 07:32 Dose: 1,000 mcg Documented By: FARIDEH Cyproheptadine HCl (Cyproheptadine Hcl 4 Mg Tablet) 4 mg PO BEDTIME COUNT [facility]CLUD[facility] Last Admin: 06/14/23 19:41 Dose: 4 mg Documented By: CATY Docusate Sodium (Docusate Sodium 100 Mg Capsule) 100 mg PO DAILY PRN PRN Reason: Constipation Piperacillin Sod/Tazobactam (Sod 3.375 gm/ Sodium Chloride) 50 mls @ 100 mls/hr IV Q6H COUNT [facility]CLUDES [facility] Last Admin: 06/15/23 07:33 Dose: 100 mls/hr Documented By: FARIDEH Ondansetron HCl (Ondansetron Hcl 4 Mg/2 Ml Vial) 4 mg IVPUSH Q8H PRN PRN Reason: Nausea and Vomiting Polyethylene Glycol (Polyethylene Glycol 3350 17 Gm Powd.Pack) 17 gm PO DAILY COUNT [facility]CLUDES [facility] Last Admin: 06/15/23 07:33 Dose: 17 gm Documented By: FARIDEH Sertraline HCl (Sertraline Hcl 25 Mg Tablet) 25 mg PO DAILY COUNT [facility]CLUD[facility] Last Admin: 06/15/23 07:32 Dose: 25 mg Documented By: FARIDEH Vitamin D (Cholecalciferol (Vitamin D3) 25 Mcg Tablet) 25 mcg PO DAILY [facility] Last Admin: 06/15/23 07:32 Dose: 25 mcg Documented By: FARIDEH Labs 06/15/23 05:29 06/15/23 05:29 Labs: Laboratory Results - last 24 hr 06/15/23 05:29 MCV 92.2 MCH 29.2 MCHC 31.7 RDW 16.0 Plt Count 271 D MPV 9.1 L Absolute Nucleated RBC 0.000 Nucleated RBC % (auto) 0.0 Anion Gap 13 Estim Creat Clear Calc 70.6 Estimated GFR > 60 Random Glucose 82 Calcium 10.0 Microbiology Microbiology Results: Microbiology 06/12/23 16:40 Gram Stain - Final Abdomen - Abscess Routine Culture - Final Escherichia coli Anaerobic Culture - Preliminary Culture in progress. Assessment and Plan (1) Abscess: Status: Acute (2) Abdominal hematoma: Status: Acute Plan 88-year-old male with past medical history of CVA peripheral vascular disease, history prostate cancer status post prostatectomy, venous insufficiency, HLD, normocytic anemia, history of SIADH/hyponatremia comes into the hospital with complaints of weakness and being work up for ERUM/stroke. Has leukocytosis without source of infection and now hypotension. 1.HypOtension-without source of infection (No Sepsis) likely from dehydration elevated WBC is chronic. Treated with IVF and 1 dose of 5 mg of midodrine with good effect. IVF has been discontinued, empiric Ceftriaxone and Doxy for 3 days now. Blood cultures negative and will stop antibiotics. Family doesn't want escalation ICU if indicated. orthostasis neg ct abd noted-possible hematoma's iliopsoas /perinephric area got IR guided drainge ,hold eliquis/asa got drainage -on 05/13/23 -right flank area -growing gram neg leucocytosis resolved ,no abd pain ,no fever continue zosyn(started on 05/14/23). hold eliquis. d/w iD -Plan to continue iv zosyn for now then reeval with ct abd next week to see response (see if collection are improving/decreasing). above plan d/w surgery HLD statin History of DVT-- hold Eliquis Unsteady gait- is chronic, PT eval, to rehab when medically ready to go DVT prophylaxis- off ac due to possible hematomas( nonocculsive right dvt as per may). ambulate hold eliquis need for inpatient; Hypotension, unsteady gait, SIRS leucocytosis persistent : workup negative ,ua and cxr negative. blood cultures neg id eval noted hematology eval-workup bcr/abl pending . in addition please see . as per chart review:Weakness, thought to be less likely stroke ,suspect this was related to low BPs and there were instances of low BPs on presentation. Unsteady gait is chronic, MRI axel neg (06/09/23). dvt prophylax:scd -possible hemtomas as above. Family and patient has been updatedin detail-they understands & agreement with above plan. ongoing inpatient need: workup for hematoma's iliopsoas /perinephric area,ID follow up. Above plan d/w with miss acevedo ([facility]) - agree with above plan. Time Spent With Patient Time: Total time managing care of this patient today ____ minutes. Quality Stroke Does the patient have a stroke diagnosis?: No VTE Prior VTE?: No VTE Risk Level:: Medical - moderate - high VTE Device Contraindication: Treatment Not Indicated VTE Drug Contraindication: N/A - Med Ordered
[2023-06-15 15:12] VITALS: BP 107/53; PULSE 62; RESP 16; TEMP 36.2; O2SAT 94
[2023-06-15 19:03] VITALS: BP 120/76; PULSE 65; RESP 16; TEMP 36.8
[2023-06-15] MEDS: Cyproheptadine HCl 4 MG TABLET PO (20:37)
[2023-06-16] VITALS (7 sets, daily range): BP systolic 101–160; BP diastolic 57–77; PULSE 62–74; RESP 16–18; TEMP 36–36.5; O2SAT 96–99
[2023-06-16] MEDS: Acetaminophen 325 MG TABLET 650 MG PO (01:40)
[2023-06-16] MEDS: Ascorbic Acid 500 MG TABLET 1000 MG PO (07:41)
[2023-06-16] MEDS: Cyanocobalamin (Vitamin B-12) 1,000 MCG TABLET 1000 MCG PO (07:41)
[2023-06-16] MEDS: Cholecalciferol (Vitamin D3) 25 MCG TABLET PO (07:41)
[2023-06-16] MEDS: Atorvastatin Calcium 80 MG TABLET PO (07:41)
--- NOTE | 2023-06-16 08:52 | MHC.CLN ---
F/U DIET=REGULAR. ENSURE MAX PROTEIN TID (450 KCALS, 90 G PROTEIN). TAKES ENSURE TID AT HOME. INTAKE USUALLY 50-100%. CONTINUE CURRENT DIET AND SUPPLEMENT. FOLLOW FOR PO INTAKE.
--- NOTE | 2023-06-16 11:17 | HO.PM.IMPN ---
Subjective Subjective Date of Service: 06/16/23 Interval History: possible infected hematoma Review of Systems no soarness has left big toe pain (?ingrown nail) no nausea or vomiting or abd pain passing bm's Physical Exam Vital Signs: Vital Signs: Last Vital Signs Temp 97.3 F 06/16/23 07:25 Pulse 74 06/16/23 07:25 Resp 18 06/16/23 07:25 BP 139/72 06/16/23 07:25 Pulse Ox 97 06/16/23 07:25 O2 Del Method Room Air 06/16/23 07:25 O2 Flow Rate 2 06/07/23 00:03 BMI result Body Mass Index 19.7 General: AO X 3, no acute distress Resp: CTA bilateral CVS: S1,S2,RRR GI: +BS, NT, no distention Skin: No rash ,left big toe left side-question ingrown nail vs mild big toe some pain/erythema near nail area. Neuro: motor grossly intact, no focal finding other than unsteady gait Psych: appropriate affect Objective Data Active Medications Acetaminophen (Acetaminophen 325 Mg Tablet) 650 mg PO Q6H PRN PRN Reason: Pain, Mild (Pain Scale 1-3) Last Admin: 06/16/23 01:40 Dose: 650 mg Documented By: OZORALLeroy Albuterol Sulfate (Albuterol Sulfate 90 Mcg 8 Gm Inhaler) 2 puff INHALE Q4H PRN PRN Reason: shortness of breath or wheezing Apixaban (Apixaban 5 Mg Tablet) 5 mg PO BID [facility] Last Admin: 06/11/23 08:35 Dose: 5 mg Documented By: MARKEL Ascorbic Acid (Ascorbic Acid 500 Mg Tablet) 1,000 mg PO DAILY [facility] Last Admin: 06/16/23 07:41 Dose: 1,000 mg Documented By: FARIDEH Aspirin (Aspirin Enteric Coated 81 Mg Tablet.) 81 mg PO DAILY [facility] Last Admin: 06/11/23 08:34 Dose: 81 mg Documented By: MARKEL Atorvastatin Calcium (Atorvastatin Calcium 80 Mg Tablet) 80 mg PO DAILY [facility] Last Admin: 06/16/23 07:41 Dose: 80 mg Documented By: FARIDEH Cyanocobalamin (Cyanocobalamin (Vitamin B-12) 1,000 Mcg Tablet) 1,000 mcg PO DAILY [facility] Last Admin: 06/16/23 07:41 Dose: 1,000 mcg Documented By: FARIDEH Cyproheptadine HCl (Cyproheptadine Hcl 4 Mg Tablet) 4 mg PO BEDTIME [facility] Last Admin: 06/15/23 20:37 Dose: 4 mg Documented By: OZORALB Docusate Sodium (Docusate Sodium 100 Mg Capsule) 100 mg PO DAILY PRN PRN Reason: Constipation Piperacillin Sod/Tazobactam (Sod 3.375 gm/ Sodium Chloride) 50 mls @ 100 mls/hr IV Q6H [facility] Last Infusion: 06/16/23 09:43 Dose: Infused Documented By: FARIDEH Ondansetron HCl (Ondansetron Hcl 4 Mg/2 Ml Vial) 4 mg IVPUSH Q8H PRN PRN Reason: Nausea and Vomiting Polyethylene Glycol (Polyethylene Glycol 3350 17 Gm Powd.Pack) 17 gm PO DAILY [facility] Last Admin: 06/16/23 07:43 Dose: 17 gm Documented By: FARIDEH Sertraline HCl (Sertraline Hcl 25 Mg Tablet) 25 mg PO DAILY [facility] Last Admin: 06/16/23 07:42 Dose: 25 mg Documented By: FARIDEH Vitamin D (Cholecalciferol (Vitamin D3) 25 Mcg Tablet) 25 mcg PO DAILY [facility] Last Admin: 06/16/23 07:41 Dose: 25 mcg Documented By: FARIDEH Labs 06/15/23 05:29 06/15/23 05:29 Microbiology Microbiology Results: Microbiology 06/12/23 16:40 Gram Stain - Final Abdomen - Abscess Routine Culture - Final Escherichia coli Anaerobic Culture - Preliminary Culture in progress. Assessment and Plan (1) Abscess: Status: Acute (2) Abdominal hematoma: Status: Acute Plan 88-year-old male with past medical history of CVA peripheral vascular disease, history prostate cancer status post prostatectomy, venous insufficiency, HLD, normocytic anemia, history of SIADH/hyponatremia comes into the hospital with complaints of weakness and being work up for ERUM/stroke. Has leukocytosis without source of infection and now hypotension. HypOtension-without source of infection (No Sepsis) likely from dehydration elevated WBC is chronic. Treated with IVF and 1 dose of 5 mg of midodrine with good effect. IVF has been discontinued, empiric Ceftriaxone and Doxy for 3 days now. Blood cultures negative and will stop antibiotics. Family doesn't want escalation ICU if indicated. orthostasis neg ct abd noted-possible hematoma's iliopsoas /perinephric area got IR guided drainge ,hold eliquis/asa got drainage -on 05/13/23 -right flank area -growing ecoli-pansenstive has wilfredo drain right upper back area-clean ,stilldrainging goo amount 30cc/shift as per staff leucocytosis resolved ,no abd pain ,no fever has mild ingrown nail/big toe area erythema left side. continue zosyn(started on 05/14/23). hold eliquis. d/w iD -Plan to continue iv zosyn for now then reeval with ct abd as per ID. above plan d/w surgery HLD statin History of DVT( 05/16/23 DVT study showed nonocculsive dvt of right popliteal dillan -was on eliquis as per vascular )-- hold Eliquis will add vascular eval for am -for further use of eliquis. Unsteady gait- is chronic, PT eval, to rehab when medically ready to go DVT prophylaxis- off ac due to possible hematomas( nonocculsive right dvt as per may). ambulate hold eliquis need for inpatient; Hypotension, unsteady gait, SIRS leucocytosis persistent : workup negative ,ua and cxr negative. blood cultures neg id eval noted hematology eval-workup bcr/abl pending . in addition see hypotension section above. as per chart review:Weakness, thought to be less likely stroke ,suspect this was related to low BPs and there were instances of low BPs on presentation. Unsteady gait is chronic, MRI axel neg (06/09/23). dvt prophylax:scd -possible hemtomas as above. Family and patient has been updatedin detail-they understands & agreement with above plan. ongoing inpatient need: workup for hematoma's iliopsoas /perinephric area,ID follow up and has wilfredo drain still draining Above plan d/w with miss acevedo ([facility]) - agree with above plan. Time Spent With Patient Time: Total time managing care of this patient today ____ minutes. Quality Stroke Does the patient have a stroke diagnosis?: No VTE Prior VTE?: No VTE Risk Level:: Medical - moderate - high VTE Device Contraindication: Treatment Not Indicated VTE Drug Contraindication: N/A - Med Ordered
[2023-06-17] VITALS (7 sets, daily range): BP systolic 102–163; BP diastolic 55–79; PULSE 61–80; RESP 16–18; TEMP 36–36.9; O2SAT 96–98
[2023-06-17] MEDS: Heparin Sodium,Porcine 5,000 UNIT/ML VIAL 5000 UNIT SUBCUT (00:04)
--- NOTE | 2023-06-17 01:46 | PM.PNGS ---
Subjective Subjective Date of Service: 06/15/23 Interval history: feeling well Physical Exam Vital Signs: Vital Signs: Last Vital Signs Temp 97.7 F 06/16/23 23:32 Pulse 68 06/16/23 23:32 Resp 18 06/16/23 23:32 BP 157/72 H 06/16/23 23:32 Pulse Ox 98 06/16/23 23:32 O2 Del Method Room Air 06/16/23 23:32 O2 Flow Rate 2 06/07/23 00:03 BMI result Body Mass Index 19.7 GI: Other: abdo soft nontender and drain with more serous fluid Objective Data Active Medications Acetaminophen (Acetaminophen 325 Mg Tablet) 650 mg PO Q6H PRN PRN Reason: Pain, Mild (Pain Scale 1-3) Last Admin: 06/16/23 01:40 Dose: 650 mg Documented By: BONIFACIOORALLeroy Albuterol Sulfate (Albuterol Sulfate 90 Mcg 8 Gm Inhaler) 2 puff INHALE Q4H PRN PRN Reason: shortness of breath or wheezing Apixaban (Apixaban 5 Mg Tablet) 5 mg PO BID [facility] Last Admin: 06/11/23 08:35 Dose: 5 mg Documented By: MARKEL Ascorbic Acid (Ascorbic Acid 500 Mg Tablet) 1,000 mg PO DAILY [facility] Last Admin: 06/16/23 07:41 Dose: 1,000 mg Documented By: FARIDEH Aspirin (Aspirin Enteric Coated 81 Mg Tablet.) 81 mg PO DAILY [facility] Last Admin: 06/11/23 08:34 Dose: 81 mg Documented By: MARKEL Atorvastatin Calcium (Atorvastatin Calcium 80 Mg Tablet) 80 mg PO DAILY [facility] Last Admin: 06/16/23 07:41 Dose: 80 mg Documented By: FARIDEH Cyanocobalamin (Cyanocobalamin (Vitamin B-12) 1,000 Mcg Tablet) 1,000 mcg PO DAILY [facility] Last Admin: 06/16/23 07:41 Dose: 1,000 mcg Documented By: FARIDEH Cyproheptadine HCl (Cyproheptadine Hcl 4 Mg Tablet) 4 mg PO BEDTIME [facility] Last Admin: 06/16/23 20:25 Dose: 4 mg Documented By: ODRISM Docusate Sodium (Docusate Sodium 100 Mg Capsule) 100 mg PO DAILY PRN PRN Reason: Constipation Heparin Sodium (Porcine) (Heparin Sodium,Porcine 5,000 Unit/Ml Vial) 5,000 unit SUBCUT Q12H [facility] Last Admin: 06/17/23 00:04 Dose: 5,000 unit Documented By: RAMIRO Piperacillin Sod/Tazobactam (Sod 3.375 gm/ Sodium Chloride) 50 mls @ 100 mls/hr IV Q6H [facility] Last Infusion: 06/16/23 20:55 Dose: Infused Documented By: RAMIRO Ondansetron HCl (Ondansetron Hcl 4 Mg/2 Ml Vial) 4 mg IVPUSH Q8H PRN PRN Reason: Nausea and Vomiting Polyethylene Glycol (Polyethylene Glycol 3350 17 Gm Powd.Pack) 17 gm PO DAILY [facility] Last Admin: 06/16/23 07:43 Dose: 17 gm Documented By: FARIDEH Sertraline HCl (Sertraline Hcl 25 Mg Tablet) 25 mg PO DAILY [facility] Last Admin: 06/16/23 07:42 Dose: 25 mg Documented By: FARIDEH Vitamin D (Cholecalciferol (Vitamin D3) 25 Mcg Tablet) 25 mcg PO DAILY [facility] Last Admin: 06/16/23 07:41 Dose: 25 mcg Documented By: FARIDEH Labs 06/15/23 05:29 06/15/23 05:29 Microbiology Microbiology Results: Microbiology 06/12/23 16:40 Fungal Identification - Preliminary Abdomen - Abscess No growth to date. Procedures Date of Service Date of Service: 06/17/23 Progress Note: A&P Assessment and plan (1) Abscess: Status: Acute Assessment and Plan: pt with retroperitoneal hematoma drained - fluid less blood but still coming out. His wbc is normal today. clinicially doing well afebrile plan -cont with the drain and ivf, wait about one week,follow drainage and then rescan to evaluated fulid collection- would cont with iv antibx until at least after ct showing significant resolution if not complete of the collections. good that wbc normal now. Time Spent With Patient Time: Total time managing care of this patient today ____ minutes. Quality Stroke Does the patient have a stroke diagnosis?: No VTE Prior VTE?: No VTE Risk Level:: Medical - moderate - high VTE Device Contraindication: Treatment Not Indicated VTE Drug Contraindication: N/A - Med Ordered
[2023-06-17] MEDS: Acetaminophen 325 MG TABLET 650 MG PO ×2 (02:04→08:09)
[2023-06-17] MEDS: Cholecalciferol (Vitamin D3) 25 MCG TABLET PO (08:09)
[2023-06-17] MEDS: Atorvastatin Calcium 80 MG TABLET PO (08:09)
[2023-06-17] MEDS: Cyanocobalamin (Vitamin B-12) 1,000 MCG TABLET 1000 MCG PO (08:10)
[2023-06-17] MEDS: Ascorbic Acid 500 MG TABLET 1000 MG PO (08:10)
--- NOTE | 2023-06-17 15:38 | HO.PM.IMPN ---
Subjective Subjective Date of Service: 06/17/23 Interval History: complaining of left toe pain, denies fever, no chills, no headache, no dizziness, no nausea, no vomiting, no abdominal pain, no other acute complaints, no events overnight. Review of Systems All other systems reviewed and negative Physical Exam Vital Signs: Vital Signs: Last Vital Signs Temp 97.4 F 06/17/23 15:15 Pulse 61 06/17/23 15:15 Resp 16 06/17/23 15:15 BP 116/56 L 06/17/23 15:15 Pulse Ox 96 06/17/23 15:15 O2 Del Method Room Air 06/17/23 15:15 O2 Flow Rate 2 06/07/23 00:03 BMI result Body Mass Index 19.7 Const: Other: General frail, awake alert, no acute distress. Neck supple no JVD. CVS regular rate rhythm, Respiratory lungs clear to auscultation, no respiratory distress, no wheeze, no rhonchi. Gastrointestinal abdomen soft, non tender, bowel sounds audible, no guarding , no rigidity,wilfredo with serous drainage. Extremities no edema, left big toe ingrown nail with pus lateral margin. Neuro nonfocal , speech clear. Skin no rash Objective Data Active Medications Acetaminophen (Acetaminophen 325 Mg Tablet) 650 mg PO Q6H PRN PRN Reason: Pain, Mild (Pain Scale 1-3) Last Admin: 06/17/23 08:09 Dose: 650 mg Documented By: FARIDEH Albuterol Sulfate (Albuterol Sulfate 90 Mcg 8 Gm Inhaler) 2 puff INHALE Q4H PRN PRN Reason: shortness of breath or wheezing Apixaban (Apixaban 5 Mg Tablet) 5 mg PO BID [facility] Last Admin: 06/11/23 08:35 Dose: 5 mg Documented By: MARKEL Ascorbic Acid (Ascorbic Acid 500 Mg Tablet) 1,000 mg PO DAILY [facility] Last Admin: 06/17/23 08:10 Dose: 1,000 mg Documented By: FARIDEH Aspirin (Aspirin Enteric Coated 81 Mg Tablet.) 81 mg PO DAILY [facility] Last Admin: 06/11/23 08:34 Dose: 81 mg Documented By: MARKEL Atorvastatin Calcium (Atorvastatin Calcium 80 Mg Tablet) 80 mg PO DAILY [facility] Last Admin: 06/17/23 08:09 Dose: 80 mg Documented By: FARIDEH Cyanocobalamin (Cyanocobalamin (Vitamin B-12) 1,000 Mcg Tablet) 1,000 mcg PO DAILY [facility] Last Admin: 06/17/23 08:10 Dose: 1,000 mcg Documented By: FARIDEH Cyproheptadine HCl (Cyproheptadine Hcl 4 Mg Tablet) 4 mg PO BEDTIME [facility] Last Admin: 06/16/23 20:25 Dose: 4 mg Documented By: ODRISM Docusate Sodium (Docusate Sodium 100 Mg Capsule) 100 mg PO DAILY PRN PRN Reason: Constipation Heparin Sodium (Porcine) (Heparin Sodium,Porcine 5,000 Unit/Ml Vial) 5,000 unit SUBCUT Q12H [facility] Last Admin: 06/17/23 11:57 Dose: 5,000 unit Documented By: LB Piperacillin Sod/Tazobactam (Sod 3.375 gm/ Sodium Chloride) 50 mls @ 100 mls/hr IV Q6H [facility] Last Admin: 06/17/23 14:14 Dose: 100 mls/hr Documented By: LB Ondansetron HCl (Ondansetron Hcl 4 Mg/2 Ml Vial) 4 mg IVPUSH Q8H PRN PRN Reason: Nausea and Vomiting Polyethylene Glycol (Polyethylene Glycol 3350 17 Gm Powd.Pack) 17 gm PO DAILY [facility] Last Admin: 06/17/23 08:08 Dose: 17 gm Documented By: FARIDEH Sertraline HCl (Sertraline Hcl 25 Mg Tablet) 25 mg PO DAILY [facility] Last Admin: 06/17/23 08:10 Dose: 25 mg Documented By: FARIDEH Vitamin D (Cholecalciferol (Vitamin D3) 25 Mcg Tablet) 25 mcg PO DAILY [facility] Last Admin: 06/17/23 08:09 Dose: 25 mcg Documented By: FARIDEH Labs 06/15/23 05:29 06/15/23 05:29 Labs: Laboratory Results - last 24 hr 06/10/23 18:39 BCR/abl Interp & Reprt See Note Microbiology Microbiology Results: Microbiology 06/12/23 16:40 Gram Stain - Final Abdomen - Abscess Routine Culture - Final Escherichia coli Anaerobic Culture - Preliminary Culture in progress. 06/12/23 16:40 Fungal Identification - Preliminary Abdomen - Abscess No growth to date. Assessment and Plan (1) Abscess: Status: Acute (2) Abdominal hematoma: Status: Acute Plan 88-year-old male with past medical history of CVA peripheral vascular disease, history prostate cancer status post prostatectomy, venous insufficiency, HLD, normocytic anemia, history of SIADH/hyponatremia comes into the hospital with complaints of weakness and being work up for ERUM/stroke. Has leukocytosis without source of infection and now hypotension. Hypotension- resolved with IV fluid / normal orthostatic BP's Right retroperitoneal iliopsoas abscess due to persistent leukocytosis had CT abdomen that showed right iliopsoas fluid collection s/p IR guided drainge ,on 05/13/23 aspirate grew ecoli-pansenstive has wilfredo drain right upper back serosanguineous drainage leucocytosis resolved ,no abd pain ,no fever , continue IV Zosyn, being followed closely by General surgery, they recommend to continue WILFREDO drain for 1 week followed by repeat CT scan to evaluate fluid collection WBC normalized, no fevers ,clinically stable. left ingrown nail/big toe area erythema left side. on IV Zosyn as above, requested Dr. Kaminski for I/D applying warm compresses HLD statin History of DVT( 05/16/23 DVT study showed nonocculsive dvt of right popliteal dillan -was on eliquis as per vascular )- Eliquis on hold case discussed with Dr. Kaminski he will request for repeat DVT study- Unsteady gait- chronic, MRI brain negative, PT recommend rehab when medically ready to go DVT prophylaxis- on subcu heparin leucocytosis persistent : workup negative ,ua and cxr negative. blood cultures neg id eval noted hematology eval-workup bcr/abl pending . need for inpatient; on IV antibiotic for infected hematoma Time Spent With Patient Time: Total time managing care of this patient today ____ minutes. Quality Stroke Does the patient have a stroke diagnosis?: No VTE Prior VTE?: No VTE Risk Level:: Medical - moderate - high VTE Device Contraindication: Treatment Not Indicated VTE Drug Contraindication: N/A - Med Ordered
[2023-06-18] VITALS: BP 125/64; PULSE 69; RESP 16; TEMP 36.4; O2SAT 97
[2023-06-18 04:00] VITALS: BP 143/71; PULSE 68; RESP 16; TEMP 36.3; O2SAT 98
[2023-06-18 07:24] VITALS: BP 174/78; PULSE 69; RESP 16; TEMP 36.1; O2SAT 97
[2023-06-18] MEDS: Cyanocobalamin (Vitamin B-12) 1,000 MCG TABLET 1000 MCG PO (07:39)
[2023-06-18] MEDS: Ascorbic Acid 500 MG TABLET 1000 MG PO (07:39)
[2023-06-18] MEDS: Cholecalciferol (Vitamin D3) 25 MCG TABLET PO (07:40)
[2023-06-18] MEDS: Atorvastatin Calcium 80 MG TABLET PO (07:40)
--- NOTE | 2023-06-18 07:40 | PM.CNGS ---
History of Present Illness Consult details Consult date: 06/17/23 Reason for consult: other (dvt) Requesting physician: Aarti Julio Narrative: Very pleasant 88-year-old gentleman who had originally seen me in the office for lower extremity swelling and discoloration. There is concern about venous insufficiency. We had actually attempted to obtain a venous insufficiency test back in May. At that time it was discovered that he had a DVT. Was started on anticoagulation through the emergency room and subsequently discharged. Most recently he has developed this abdominal wall hematoma/abscess. Currently being drained. Appears to be doing relatively well. The concern at the current time is should the Eliquis be continued. He is now for vascular follow-up. Review of Systems Constitutional: Constitutional: Reports as per HPI ENT: Reports system reviewed and no additional complaints, except as documented Cardiovascular: Cardiovascular: Denies chest pain, Denies chest pain at rest and Denies chest pain with activity Respiratory: Respiratory: Denies chest congestion and Denies cough Gastrointestinal: Gastrointestinal: Reports no additional gastrointestinal complaints Musculoskeletal: Musculoskeletal: Denies abnormal gait Integumentary/Breasts: Skin/Breast: Reports pruritus and Denies wounds Neurologic: Reports system reviewed and no additional complaints, except as documented and Denies abnormal gait Psychiatric: Psychiatric: Denies no additional psychiatric complaints PMFSH Past Medical History Medical History (Updated 06/14/23 @ 13:34 by Jacy Marcelino MD) Abscess Leukocytosis Normocytic anemia Hyponatremia Low sodium levels Hypercholesterolemia Prostate cancer Osteoarthritis, shoulder Venous insufficiency COVID-19 virus infection Family History Family History Father Diabetes Family history: reviewed and not pertinent Surgical History Surgical History History of radical prostatectomy Erectile dysfunction following urethral surgery Social History Social History Household Members: Children Household Members Other:: daughter Housing: House Do you presently have visiting nurse or other home services: Yes ([facility]) Alcohol intake: never Patient Tobacco Use Status: Never used Tobacco e-Cigarette/Vaping Use: Never Used Second Hand Smoke Exposure: No Advance Directives Date on File: 08/24/21 service: No Current occupational status: retired 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, 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 [employer] Cognitive needs: Yes (cane) Hearing needs: No Vision needs: Yes Meds Allergies Allergy/AdvReac Type Severity Reaction Status Date / Time No Known Allergies Allergy Mild N/A Verified 06/05/23 10:26 Active Medications: Current Medications Acetaminophen (Acetaminophen 325 Mg Tablet) 650 mg PO Q6H PRN PRN Reason: Pain, Mild (Pain Scale 1-3) Last Admin: 06/17/23 08:09 Dose: 650 mg Albuterol Sulfate (Albuterol Sulfate 90 Mcg 8 Gm Inhaler) 2 puff INHALE Q4H PRN PRN Reason: shortness of breath or wheezing Apixaban (Apixaban 5 Mg Tablet) 5 mg PO BID [facility] Last Admin: 06/11/23 08:35 Dose: 5 mg Ascorbic Acid (Ascorbic Acid 500 Mg Tablet) 1,000 mg PO DAILY [facility] Last Admin: 06/18/23 07:39 Dose: 1,000 mg Aspirin (Aspirin Enteric Coated 81 Mg Tablet.) 81 mg PO DAILY [facility] Last Admin: 06/11/23 08:34 Dose: 81 mg Atorvastatin Calcium (Atorvastatin Calcium 80 Mg Tablet) 80 mg PO DAILY [facility] Last Admin: 06/18/23 07:40 Dose: 80 mg Cyanocobalamin (Cyanocobalamin (Vitamin B-12) 1,000 Mcg Tablet) 1,000 mcg PO DAILY [facility] Last Admin: 06/18/23 07:39 Dose: 1,000 mcg Cyproheptadine HCl (Cyproheptadine Hcl 4 Mg Tablet) 4 mg PO BEDTIME [facility] Last Admin: 06/17/23 20:26 Dose: 4 mg Docusate Sodium (Docusate Sodium 100 Mg Capsule) 100 mg PO DAILY PRN PRN Reason: Constipation Heparin Sodium (Porcine) (Heparin Sodium,Porcine 5,000 Unit/Ml Vial) 5,000 unit SUBCUT Q12H [facility] Last Admin: 06/17/23 23:42 Dose: 5,000 unit Piperacillin Sod/Tazobactam (Sod 3.375 gm/ Sodium Chloride) 50 mls @ 100 mls/hr IV Q6H [facility] Last Admin: 06/18/23 07:40 Dose: 100 mls/hr Ondansetron HCl (Ondansetron Hcl 4 Mg/2 Ml Vial) 4 mg IVPUSH Q8H PRN PRN Reason: Nausea and Vomiting Polyethylene Glycol (Polyethylene Glycol 3350 17 Gm Powd.Pack) 17 gm PO DAILY [facility] Last Admin: 06/18/23 07:40 Dose: Not Given Sertraline HCl (Sertraline Hcl 25 Mg Tablet) 25 mg PO DAILY [facility] Last Admin: 06/18/23 07:39 Dose: 25 mg Vitamin D (Cholecalciferol (Vitamin D3) 25 Mcg Tablet) 25 mcg PO DAILY [facility] Last Admin: 06/18/23 07:40 Dose: 25 mcg Home Medications Medication Instructions Recorded Confirmed Last Taken Type cholecalciferol (vitamin D3) 25 25 mcg PO DAILY 01/17/21 06/05/23 04/01/23 History mcg (1,000 unit) capsule meloxicam 15 mg tablet 15 mg PO DAILY 04/25/22 06/05/23 04/01/23 History ascorbic acid (vitamin C) 1,000 mg 1,000 mg PO DAILY 02/22/23 06/05/23 04/01/23 History tablet,extended release cyanocobalamin (vitamin B-12) 1,000 mcg PO DAILY 02/22/23 06/05/23 04/01/23 History 1,000 mcg tablet sertraline 50 mg tablet 25 mg PO DAILY 06/05/23 06/05/23 Unknown History Physical Exam Vital Signs: Vital Signs: Last Vital Signs Temp 96.9 F 06/18/23 07:24 Pulse 69 06/18/23 07:24 Resp 16 06/18/23 07:24 BP 174/78 H 06/18/23 07:24 Pulse Ox 97 06/18/23 07:24 O2 Del Method Room Air 06/18/23 07:24 O2 Flow Rate 2 06/07/23 00:03 BMI result Body Mass Index 19.7 Const: General: cooperative, healthy appearing and comfortable Orientation/consciousness: oriented to person, oriented to place and oriented to time Neck: Carotids: no bruits Chest: Chest palpation & inspection: normal inspection of the chest and normal palpation of entire chest wall Resp: Effort & Inspection: normal respiratory effort and able to speak in complete sentences Cardio: Rate: regular rate Heart sounds: S1 normal heart sound present and S2 normal heart sound present Peripheral pulses: Peripheral pulses 2+ throughout GI: Inspection: Yes normal to inspection Skin: Other: +2 edema, bilateral pretibial skin discoloration CEAP Classification C4 - skin color changes Ep - Etiology Primary As - superficial veins P - reflux Great toe - ingrown toenail General skin exam: dry skin Neuro: General: oriented to person, oriented to place and oriented to time Extrem: Right lower extremity: full ROM, normal capillary refill and edema Left lower extremity: full ROM, normal capillary refill and edema Psych: Mental Status: mental status grossly normal Results Labs 06/15/23 05:29 06/15/23 05:29 Labs: Urine 06/05/23 Range/Units 14:48 Urine Color Yellow Urine Appearance Clear Urine pH 6.5 (5.0-9.0) Ur Specific [place] >= 1.030 H (1.005-1.025) Urine Protein 100 (2+) H (Neg-Trace) mg/dL Urine Glucose (UA) Negative (Negative) mg/dL All other labs normal. Assessment and Plan (1) DVT (deep venous thrombosis): Qualifiers: DVT location: lower extremity Affected thrombotic vein of extremity: popliteal Chronicity: acute Laterality: right Qualified Code(s): I82.431 - Acute embolism and thrombosis of right popliteal vein Status: Acute Plan In short patient has prior history of DVT. I have taken the liberty of ordering a repeat ultrasound of that extremity to better assess the overall status of this DVT. I will also try to examine his toes tomorrow to better assess the overall status of his feet. Thank you for allowing us to assist in his care. If there are any questions or concerns please do not hesitate to contact us. Time Spent With Patient Time: Total time managing care of this patient today ____ minutes. Procedures Date of Service Date of Service: 06/18/23
--- NOTE | 2023-06-18 10:42 | MHC.CLN ---
F/U DIET=REGULAR. ENSURE MAX PROTEIN TID (450 KCALS, 90 G PROTEIN). INTAKE USUALLY 75-100%. CONTINUE CURRENT DIET AND SUPPLEMENT. FOLLOW FOR PO INTAKE.
--- NOTE | 2023-06-18 11:40 | HO.PM.IMPN ---
Subjective Subjective Date of Service: 06/18/23 Interval History: complaining of persistent left big toe discomfort otherwise denies fever, no chills, tolerating diet, no nausea no vomiting no abdominal pain WILFREDO drain in place with serosanguineous drainage, no acute events overnight. Review of Systems All other system reviewed and negative. Physical Exam Vital Signs: Vital Signs: Last Vital Signs Temp 96.9 F 06/18/23 07:24 Pulse 69 06/18/23 07:24 Resp 16 06/18/23 07:24 BP 174/78 H 06/18/23 07:24 Pulse Ox 97 06/18/23 07:24 O2 Del Method Room Air 06/18/23 07:24 O2 Flow Rate 2 06/07/23 00:03 BMI result Body Mass Index 19.7 Const: Other: General awake alert x3, no acute distress. Neck supple no JVD. CVS regular rate rhythm, Respiratory lungs clear to auscultation, no respiratory distress, no wheeze, no rhonchi. Gastrointestinal abdomen soft, non tender, bowel sounds audible, no guarding , no rigidity, wilfredo with serous drainage. Extremities no edema, left big toe ingrown nail with pus lateral margin. Neuro nonfocal , speech clear. Skin no rash psych appropriate affect Objective Data Active Medications Acetaminophen (Acetaminophen 325 Mg Tablet) 650 mg PO Q6H PRN PRN Reason: Pain, Mild (Pain Scale 1-3) Last Admin: 06/17/23 08:09 Dose: 650 mg Documented By: FARIDEH Albuterol Sulfate (Albuterol Sulfate 90 Mcg 8 Gm Inhaler) 2 puff INHALE Q4H PRN PRN Reason: shortness of breath or wheezing Apixaban (Apixaban 5 Mg Tablet) 5 mg PO BID [facility] Last Admin: 06/11/23 08:35 Dose: 5 mg Documented By: MARKEL Ascorbic Acid (Ascorbic Acid 500 Mg Tablet) 1,000 mg PO DAILY [facility] Last Admin: 06/18/23 07:39 Dose: 1,000 mg Documented By: YULIA Aspirin (Aspirin Enteric Coated 81 Mg Tablet.) 81 mg PO DAILY [facility] Last Admin: 06/11/23 08:34 Dose: 81 mg Documented By: MARKEL Atorvastatin Calcium (Atorvastatin Calcium 80 Mg Tablet) 80 mg PO DAILY [facility] Last Admin: 06/18/23 07:40 Dose: 80 mg Documented By: YULIA Cyanocobalamin (Cyanocobalamin (Vitamin B-12) 1,000 Mcg Tablet) 1,000 mcg PO DAILY [facility] Last Admin: 06/18/23 07:39 Dose: 1,000 mcg Documented By: YULIA Cyproheptadine HCl (Cyproheptadine Hcl 4 Mg Tablet) 4 mg PO BEDTIME [facility] Last Admin: 06/17/23 20:26 Dose: 4 mg Documented By: SALVADOR Docusate Sodium (Docusate Sodium 100 Mg Capsule) 100 mg PO DAILY PRN PRN Reason: Constipation Heparin Sodium (Porcine) (Heparin Sodium,Porcine 5,000 Unit/Ml Vial) 5,000 unit SUBCUT Q12H [facility] Last Admin: 06/17/23 23:42 Dose: 5,000 unit Documented By: CHRISTINE Piperacillin Sod/Tazobactam (Sod 3.375 gm/ Sodium Chloride) 50 mls @ 100 mls/hr IV Q6H [facility] Last Infusion: 06/18/23 09:35 Dose: Infused Documented By: YULIA Ondansetron HCl (Ondansetron Hcl 4 Mg/2 Ml Vial) 4 mg IVPUSH Q8H PRN PRN Reason: Nausea and Vomiting Polyethylene Glycol (Polyethylene Glycol 3350 17 Gm Powd.Pack) 17 gm PO DAILY [facility] Last Admin: 06/18/23 07:40 Dose: Not Given Documented By: YULIA Non-Admin Reason: Patient Refused Sertraline HCl (Sertraline Hcl 25 Mg Tablet) 25 mg PO DAILY [facility] Last Admin: 06/18/23 07:39 Dose: 25 mg Documented By: YULIA Vitamin D (Cholecalciferol (Vitamin D3) 25 Mcg Tablet) 25 mcg PO DAILY [facility] Last Admin: 06/18/23 07:40 Dose: 25 mcg Documented By: YULIA Labs 06/15/23 05:29 06/15/23 05:29 Microbiology Microbiology Results: Microbiology 06/12/23 16:40 Gram Stain - Final Abdomen - Abscess Routine Culture - Final Escherichia coli Anaerobic Culture - Preliminary Culture in progress. Assessment and Plan (1) Abscess: Status: Acute (2) Abdominal hematoma: Status: Acute Plan 88-year-old male with past medical history of CVA peripheral vascular disease, history prostate cancer status post prostatectomy, venous insufficiency, HLD, normocytic anemia, history of SIADH/hyponatremia comes into the hospital with complaints of weakness and being work up for ERUM/stroke. Has leukocytosis without source of infection and now hypotension. Hypotension- resolved with IV fluid / normal orthostatic BP's Right retroperitoneal iliopsoas abscess due to persistent leukocytosis had CT abdomen that showed right iliopsoas fluid collection s/p IR guided drainge ,on 05/13/23 aspirate grew ecoli-moya senstive, blood cultures x2 negative has wilfredo drain right upper back serosanguineous drainage leucocytosis resolved ,no abd pain ,no fever , on IV Zosyn started 06/13, being followed closely by General surgery, they recommend to continue WILFREDO drain for 1 week followed by repeat CT scan to evaluate fluid collection id recommend 10-14 days of total antibiotic finish with Augmentin but recommend CT abdomen before switch to oral antibiotic once abscess cavities less than 2 cm WBC normalized, no fevers ,clinically stable. left ingrown nail big toe with abscess on IV Zosyn as above, s/p bedside I/D by Dr. Kaminski , continue analgesics. HLD statin History of DVT( 05/16/23 DVT study showed nonocculsive dvt of right popliteal dillan -was on eliquis as per vascular )- case discussed with Dr. Kaminski he recommend to repeat DVT study that showed no significant change in nonocclusive DVT right popliteal weight Dr. Kaminski plans for IVC filter for tomorrow to avoid Eliquis with history of recurrent fall. Unsteady gait- chronic, MRI brain negative, PT recommend rehab when medically ready to go DVT prophylaxis- on subcu heparin need for inpatient; on IV antibiotic for infected hematoma/ IVC filter placement at a.m. Time Spent With Patient Time: Total time managing care of this patient today ____ minutes. Quality Stroke Does the patient have a stroke diagnosis?: No VTE Prior VTE?: No VTE Risk Level:: Medical - moderate - high VTE Device Contraindication: Treatment Not Indicated VTE Drug Contraindication: N/A - Med Ordered
--- NOTE | 2023-06-18 11:58 | HO.VASCPN ---
Subjective Subjective Date of Service: 06/18/23 Patient reports: no new complaints and feels better Interval history: Very pleasant 88-year-old gentleman presents for follow-up regarding DVT. He does complain about his left great toe ingrown toenail and possible abscess. Other than that in general he feels fairly well. Abdominal hematoma appears to be resolving. Of note anticoagulation has been held. He did have a repeat ultrasound of the right lower extremity. Physical Exam Vital Signs: Vital Signs: Last Vital Signs Temp 96.9 F 06/18/23 07:24 Pulse 69 06/18/23 07:24 Resp 16 06/18/23 07:24 BP 174/78 H 06/18/23 07:24 Pulse Ox 97 06/18/23 07:24 O2 Del Method Room Air 06/18/23 07:24 O2 Flow Rate 2 06/07/23 00:03 BMI result Body Mass Index 19.7 Const: General: cooperative, healthy appearing and no acute distress Orientation/consciousness: oriented to person, oriented to place and oriented to time HEENT: Head: Yes normal to inspection Neck: Carotids: no bruits Chest: Chest palpation & inspection: normal inspection of the chest Resp: Effort & Inspection: normal respiratory effort and able to speak in complete sentences Auscultation: clear to auscultation bilaterally Cardio: Rate: regular rate Heart sounds: S1 normal heart sound present and S2 normal heart sound present GI: Inspection: Yes normal to inspection Skin: Other: Venous exam: +1 to +2 edema bilateral lower extremity with skin color changes. Right greater than left Left great toe ingrown toenail with focal abscess area. This was cleaned and the abscess expressed itself. General skin exam: no rashes or lesions noted Wounds: no wounds Neuro: General: oriented to person, oriented to place, oriented to time and CN's II-XI intact bilaterally Extrem: General: Yes normal to inspection, Yes full ROM and Yes no clubbing, cyanosis or edema Psych: Appearance: grossly normal and well kempt Speech and movement: Normal speech and movement present Affect: normal affect Progress Note: A&P Assessment and plan (1) DVT (deep venous thrombosis): Status: Acute Assessment and Plan: In short patient has right lower extremity DVT. Was an acute event in May 16. Repeat ultrasound redemonstrates this DVT although it appears to be a little bit more chronic. He did have a short duration of anticoagulation. Due to the acuity of this I do think he would be better served with the filter as his anticoagulation has been held to to this chest wall hematoma. I did discuss this with the patient. He is in agreement. The patient will require a inferior vena cava filter placement for tomorrow. Thank you for allowing us to assist in his care. If there are any questions or concerns please do not hesitate to contact us. Time Spent With Patient Time: Total time managing care of this patient today ____ minutes. Procedures Date of Service Date of Service: 06/18/23 Quality Stroke Does the patient have a stroke diagnosis?: No VTE Prior VTE?: No VTE Risk Level:: Medical - moderate - high VTE Device Contraindication: Treatment Not Indicated VTE Drug Contraindication: N/A - Med Ordered
--- NOTE | 2023-06-18 13:18 | MHC.CM.PN ---
Pt was ready for DC to [facility] today, but made a change, and he will not be going today. [facility] was updated.
[2023-06-18 15:48] VITALS: BP 104/56; PULSE 62; RESP 18; TEMP 36; O2SAT 97
[2023-06-18] MEDS: Cyproheptadine HCl 4 MG TABLET PO (19:05)
[2023-06-18] MEDS: Heparin Sodium,Porcine 5,000 UNIT/ML VIAL 5000 UNIT SUBCUT (23:49)
[2023-06-19 03:34] VITALS: BP 143/75; PULSE 80; RESP 16; TEMP 36; O2SAT 96
[2023-06-19 07:44] LABS: Hemoglobin 9.3 g/dl (14.0-18.0); Mean Corpuscular Hemoglobin 29.6 pg (27.0-33.0); Mean Corpuscular Volume 95.5 fL (80.0-98.0); Mean Platelet Volume 8.5 fL (9.4-12.4); Platelet Count 274 X10*3/uL (160-400); Red Blood Count 3.14 X10*6/uL (4.60-5.80); Red Cell Distribution Width 17.1 % (11.0-16.0); White Blood Count 10.5 X10*3/uL (4.8-10.8)
[2023-06-19] MEDS: Cholecalciferol (Vitamin D3) 25 MCG TABLET PO (07:48)
[2023-06-19] MEDS: Sertraline HCL 25 MG TABLET PO (07:48)
[2023-06-19] MEDS: Ascorbic Acid 500 MG TABLET 1000 MG PO (07:48)
[2023-06-19] MEDS: Atorvastatin Calcium 80 MG TABLET PO (07:48)
[2023-06-19] MEDS: Cyanocobalamin (Vitamin B-12) 1,000 MCG TABLET 1000 MCG PO (07:48)
[2023-06-19 08:01] LABS: Prothrombin Time 11.8 SEC (11.1-13.3)
[2023-06-19 08:10] LABS: Anion Gap 10 (12-20); Blood Urea Nitrogen 19 mg/dL (9-16); Calcium 9.6 mg/dL (8.4-10.2); Carbon Dioxide 26 mmol/L (22-29); Chloride 106 mmol/L (96-108); Creatinine Clr Calc Pharmacy 77.8; Estimated Glomerular Filt Rate > 60; Glucose Random 81 mg/dL (60-115); Potassium 3.6 mmol/L (3.3-5.1); Sodium 138 mmol/L (135-145)
--- NOTE | 2023-06-19 09:08 | P.PNIM_ITS ---
Subjective Subjective Date of Service: 06/19/23 Interval History: He feels mubh better, toes feel better, no other complaints at this time Physical Exam 2 Vital Signs: Vital Signs: Last Vital Signs Temp 96.8 F 06/19/23 03:34 Pulse 80 06/19/23 03:34 Resp 16 06/19/23 03:34 BP 143/75 H 06/19/23 03:34 Pulse Ox 96 06/19/23 03:34 O2 Del Method Room Air 06/19/23 03:34 O2 Flow Rate 2 06/07/23 00:03 BMI result Body Mass Index 19.7 Const: Other: General awake alert x3, no acute distress. Neck supple no JVD. CVS regular rate rhythm, Respiratory lungs clear to auscultation, no respiratory distress, no wheeze, no rhonchi. Gastrointestinal abdomen soft, non tender, bowel sounds audible, no guarding , no rigidity, wilfredo with serous drainage. Extremities swelling and brusing of both legs, left big toe ingrown nail with pus lateral margin. Neuro nonfocal , speech clear. Skin brusing on legs psych appropriate affect Objective Data Active Medications Acetaminophen (Acetaminophen 325 Mg Tablet) 650 mg PO Q6H PRN PRN Reason: Pain, Mild (Pain Scale 1-3) Last Admin: 06/17/23 08:09 Dose: 650 mg Documented By: FARIDEH Albuterol Sulfate (Albuterol Sulfate 90 Mcg 8 Gm Inhaler) 2 puff INHALE Q4H PRN PRN Reason: shortness of breath or wheezing Apixaban (Apixaban 5 Mg Tablet) 5 mg PO BID [facility] Last Admin: 06/11/23 08:35 Dose: 5 mg Documented By: MARKEL Ascorbic Acid (Ascorbic Acid 500 Mg Tablet) 1,000 mg PO DAILY [facility] Last Admin: 06/19/23 07:48 Dose: 1,000 mg Documented By: YULIA Aspirin (Aspirin Enteric Coated 81 Mg Tablet.) 81 mg PO DAILY [facility] Last Admin: 06/11/23 08:34 Dose: 81 mg Documented By: MARKEL Atorvastatin Calcium (Atorvastatin Calcium 80 Mg Tablet) 80 mg PO DAILY [facility] Last Admin: 06/19/23 07:48 Dose: 80 mg Documented By: YULIA Cyanocobalamin (Cyanocobalamin (Vitamin B-12) 1,000 Mcg Tablet) 1,000 mcg PO DAILY [facility] Last Admin: 06/19/23 07:48 Dose: 1,000 mcg Documented By: YULIA Cyproheptadine HCl (Cyproheptadine Hcl 4 Mg Tablet) 4 mg PO BEDTIME [facility] Last Admin: 06/18/23 19:05 Dose: 4 mg Documented By: PAUL Docusate Sodium (Docusate Sodium 100 Mg Capsule) 100 mg PO DAILY PRN PRN Reason: Constipation Heparin Sodium (Porcine) (Heparin Sodium,Porcine 5,000 Unit/Ml Vial) 5,000 unit SUBCUT Q12H [facility] Last Admin: 06/18/23 23:49 Dose: 5,000 unit Documented By: GEENASEJ Piperacillin Sod/Tazobactam (Sod 3.375 gm/ Sodium Chloride) 50 mls @ 100 mls/hr IV Q6H [facility] Last Admin: 06/19/23 07:49 Dose: 100 mls/hr Documented By: YULIA Sodium Chloride (Ns) 1,000 mls @ 100 mls/hr IVCONT .Q10H [facility] Ondansetron HCl (Ondansetron Hcl 4 Mg/2 Ml Vial) 4 mg IVPUSH Q8H PRN PRN Reason: Nausea and Vomiting Polyethylene Glycol (Polyethylene Glycol 3350 17 Gm Powd.Pack) 17 gm PO DAILY [facility] Last Admin: 06/19/23 07:48 Dose: Not Given Documented By: YULIA Non-Admin Reason: Patient Refused Sertraline HCl (Sertraline Hcl 25 Mg Tablet) 25 mg PO DAILY [facility] Last Admin: 06/19/23 07:48 Dose: 25 mg Documented By: YULIA Vitamin D (Cholecalciferol (Vitamin D3) 25 Mcg Tablet) 25 mcg PO DAILY [facility] Last Admin: 06/19/23 07:48 Dose: 25 mcg Documented By: YULIA Labs 06/19/23 07:24 06/19/23 07:24 Labs: Laboratory Results - last 24 hr 06/19/23 07:24 MCV 95.5 MCH 29.6 MCHC 31.0 RDW 17.1 H Plt Count 274 MPV 8.5 L Absolute Nucleated RBC 0.000 Nucleated RBC % (auto) 0.0 PT 11.8 D INR 1.0 Anion Gap 10 L Estim Creat Clear Calc 77.8 Estimated GFR > 60 Random Glucose 81 Calcium 9.6 Microbiology Microbiology Results: Microbiology 06/12/23 16:40 Gram Stain - Final Abdomen - Abscess Routine Culture - Final Escherichia coli Anaerobic Culture - Final NO GROWTH AFTER 5 DAYS Assessment and Plan (1) Abscess: Status: Acute (2) Abdominal hematoma: Status: Acute Plan An 88-year-old male with a past medical history of stroke, peripheral vascular disease, prostate cancer status post prostatectomy, venous insufficiency, heart failure, normocytic anemia, and 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 Initial workup for stroke was negative with CT and MRI of the head. He developed leukocytosis and hypotension with no source of infection. He was hydrated and started on empiric antibiotics. Further workup with CT of the abdomen and pelvis revealed a right retroperitoneal and iliopsoas abscess, which was drained by interventional radiology on 06/12 and grew E. coli. Blood cultures were negative. He was treated with Zosyn, and infectious disease recommends Augmentin for 10 days upon discharge. General surgery follows him and recommends leaving the drain in for a week and repeating the scan. His initial elevated white blood cell count has now normalized. Right retroperitoneal and iliopsoas abscess likely from infected hamaoma following fall, s/p IR drain on 06/12, culture = e coli, drain to remain in place for a week, then repeat CT per surgery. On Zosyn to be changed to Augmentin at discharge per ID rec, if repeat CT shows < 2 cm of abscess for total of 14 days of Abx left ingrown nail big toe with abscess s/p I and D by Dr. Kaminski, Abx as above, pain med PRN HLD statin History of DVT( 05/16/23 DVT study showed nonocculsive dvt of right popliteal dillan -was on eliquis )--Repeat US showed persistent clot and given recurret fall and risk of bleeding Dr. Kaminski will insert IVC today and avoid further anticoagulation. Dr. Kaminski will be doing this Unsteady gait- chronic, MRI brain negative, PT recommend rehab when medically ready to go DVT prophylaxis- on subcu heparin need for inpatient; on IV antibiotic for infected hematoma/ IVC filter placement and possible discharge later today Time Spent With Patient Time: Total time managing care of this patient today ____ minutes. Quality Stroke Does the patient have a stroke diagnosis?: No VTE Prior VTE?: No VTE Risk Level:: Medical - moderate - high VTE Device Contraindication: Treatment Not Indicated VTE Drug Contraindication: N/A - Med Ordered
[2023-06-19 13:29] VITALS: BP 145/75; PULSE 65; RESP 16; TEMP 36.8; O2SAT 99
--- NOTE | 2023-06-19 13:30 | W.PM.OPN ---
Operative Note Operative Note Date of Service: 06/19/23 Narrative: Angiogram report from [facility] Preoperative diagnosis: Deep venous thrombosis Postoperative diagnosis: Same Procedure: 1. Ultrasound-guided right common femoral vein access 2. Inferior vena cavogram 3. Placement of inferior vena cava filter Surgeon:Colin Kaminski M.D., FACS, RPVI [employer] Testing Technician:None Anesthesia: Local only Specimens:none Drains:none Estimated blood loss: Less than 10 ml Implant: Bard Desi retrievable vena cava filter Indications: Very frail 88-year-old gentleman with a prior history of right lower extremity DVT. He was anticoagulated on Eliquis and developed an abdominal wall hematoma which has been drained. Anticoagulation had to be stopped. Repeat ultrasound demonstrated persistent DVT which appear to be more acute than chronic. Decision was made to place a filter. The patient has signed the informed consent after reviewing risks, complications, benefits, and alternatives previously discussed with the patient. The patient was given the opportunity to ask any additional questions or voice any concerns. All questions were answered to the patient's satisfaction. Procedure in detail: Patient was brought to the angiography suite prior to which a time-out was called for patient identification and site verification. Bilateral groins were prepped and draped in the standard surgical fashion. Under ultrasound guidance right common femoral vein was punctured with micro puncture needle and wire. Subsequently a precision 5 Danish sheath was then placed. Bentson wire was advanced to the level of the vena cava. Vena cavogram was then undertaken through the 5 Danish sheath. This was a baseline study to define the variant anatomy, caval size, location and number of renal veins, and to evaluate for ileo caval thrombus. Under direct fluoroscopic guidance we exchanged out the 5 Danish sheath for the Bard in Rocio sheath. We brought the filter into position. This was then subsequently deployed. The inner cannula was then removed. Through the sheath a hand injection was performed to assess filter position. Once this was accomplished the sheath was then removed, and hemostasis was achieved with 10 minutes of direct compression. No immediate complications occurred and the patient was returned to the recovery suite with no complications Interpretation of films: 1. Ultrasound demonstrates appropriate femoral vein puncture. Image of which was saved. 2. There was no ileal caval thrombus noted 3. There are single renal veins bilaterally and the IVC is normal in caliber. There is no aberrant anatomy. 4. The filter was deployed appropriately and position below the lowest renal vein. Conclusion: 1. Successful placement of Bard Desi IVC filter 2. Anticoagulation status: Resume regular anticoagulation as indicated 4 hours post filter placement This note is constructed using voice recognition software. While every effort has been made to ensure accuracy, major general errors may have been included. Thank you for allowing me to participate in the care of your patient. Yours sincerely, Colin Kaminski MD, FACS, R.P.V.I. r
[2023-06-19] MEDS: Heparin Sodium,Porcine 5,000 UNIT/ML VIAL 5000 UNIT SUBCUT ×2 (13:59→23:19)
[2023-06-19 14:15] VITALS: BP 178/86; PULSE 64; RESP 16; TEMP 36.4; O2SAT 94
[2023-06-19 15:47] VITALS: BP 117/58; PULSE 65; RESP 18; TEMP 36.3; O2SAT 98
[2023-06-19 19:29] VITALS: BP 117/57; PULSE 68; RESP 18; TEMP 35.6; O2SAT 98
[2023-06-19] MEDS: Cyproheptadine HCl 4 MG TABLET PO (19:38)
[2023-06-20] MEDS: Acetaminophen 325 MG TABLET 650 MG PO (00:27)
[2023-06-20] MEDS: Ascorbic Acid 500 MG TABLET 1000 MG PO (07:29)
[2023-06-20] MEDS: Atorvastatin Calcium 80 MG TABLET PO (07:30)
[2023-06-20] MEDS: Sertraline HCL 25 MG TABLET PO (07:31)
[2023-06-20] MEDS: Cyanocobalamin (Vitamin B-12) 1,000 MCG TABLET 1000 MCG PO (07:31)
[2023-06-20] MEDS: Cholecalciferol (Vitamin D3) 25 MCG TABLET PO (07:31)
--- NOTE | 2023-06-20 08:49 | MHC.CLN ---
F/U DIET=REGULAR. ENSURE MAX PROTEIN TID (450 KCALS, 90 G PROTEIN). INTAKE APPEARS TO BE GOOD. CONTINUE CURRENT DIET AND SUPPLEMENT. FOLLOW FOR PO INTAKE.
--- NOTE | 2023-06-20 09:00 | P.PNIM_ITS ---
Subjective Subjective Date of Service: 06/20/23 Interval History: Has no new complaint, awaiting CT scan this morning Physical Exam 2 Vital Signs: Vital Signs: Last Vital Signs Temp 96.1 F L 06/19/23 19:29 Pulse 68 06/19/23 19:29 Resp 18 06/19/23 19:29 BP 117/57 L 06/19/23 19:29 Pulse Ox 98 06/19/23 19:29 O2 Del Method Room Air 06/19/23 19:29 O2 Flow Rate 2 06/07/23 00:03 BMI result Body Mass Index 19.7 Const: Other: General awake alert x3, no acute distress. Neck supple no JVD. CVS regular rate rhythm, Respiratory lungs clear to auscultation, no respiratory distress, no wheeze, no rhonchi. Gastrointestinal abdomen soft, non tender, bowel sounds audible, no guarding , no rigidity, wilfredo with serous drainage. Extremities swelling and brusing of both legs, left big toe ingrown nail with pus lateral margin. Neuro nonfocal , speech clear. Skin brusing on legs psych appropriate affect Objective Data Active Medications Acetaminophen (Acetaminophen 325 Mg Tablet) 650 mg PO Q6H PRN PRN Reason: Pain, Mild (Pain Scale 1-3) Last Admin: 06/20/23 00:27 Dose: 650 mg Documented By: PAUL Albuterol Sulfate (Albuterol Sulfate 90 Mcg 8 Gm Inhaler) 2 puff INHALE Q4H PRN PRN Reason: shortness of breath or wheezing Apixaban (Apixaban 5 Mg Tablet) 5 mg PO BID [facility] Last Admin: 06/11/23 08:35 Dose: 5 mg Documented By: MARKEL Ascorbic Acid (Ascorbic Acid 500 Mg Tablet) 1,000 mg PO DAILY [facility] Last Admin: 06/20/23 07:29 Dose: 1,000 mg Documented By: YULIA Aspirin (Aspirin Enteric Coated 81 Mg Tablet.) 81 mg PO DAILY [facility] Last Admin: 06/11/23 08:34 Dose: 81 mg Documented By: MARKEL Atorvastatin Calcium (Atorvastatin Calcium 80 Mg Tablet) 80 mg PO DAILY [facility] Last Admin: 06/20/23 07:30 Dose: 80 mg Documented By: YULIA Cyanocobalamin (Cyanocobalamin (Vitamin B-12) 1,000 Mcg Tablet) 1,000 mcg PO DAILY [facility] Last Admin: 06/20/23 07:31 Dose: 1,000 mcg Documented By: YULIA Cyproheptadine HCl (Cyproheptadine Hcl 4 Mg Tablet) 4 mg PO BEDTIME [facility] Last Admin: 06/19/23 19:38 Dose: 4 mg Documented By: LIN Docusate Sodium (Docusate Sodium 100 Mg Capsule) 100 mg PO DAILY PRN PRN Reason: Constipation Heparin Sodium (Porcine) (Heparin Sodium,Porcine 5,000 Unit/Ml Vial) 5,000 unit SUBCUT Q12H [facility] Last Admin: 06/19/23 23:19 Dose: 5,000 unit Documented By: PAUL Piperacillin Sod/Tazobactam (Sod 3.375 gm/ Sodium Chloride) 50 mls @ 100 mls/hr IV Q6H [facility] Last Infusion: 06/20/23 08:11 Dose: Infused Documented By: YULIA Ondansetron HCl (Ondansetron Hcl 4 Mg/2 Ml Vial) 4 mg IVPUSH Q8H PRN PRN Reason: Nausea and Vomiting Polyethylene Glycol (Polyethylene Glycol 3350 17 Gm Powd.Pack) 17 gm PO DAILY [facility] Last Admin: 06/20/23 07:31 Dose: Not Given Documented By: YULIA Non-Admin Reason: Patient Refused Sertraline HCl (Sertraline Hcl 25 Mg Tablet) 25 mg PO DAILY [facility] Last Admin: 06/20/23 07:31 Dose: 25 mg Documented By: YULIA Vitamin D (Cholecalciferol (Vitamin D3) 25 Mcg Tablet) 25 mcg PO DAILY [facility] Last Admin: 06/20/23 07:31 Dose: 25 mcg Documented By: YULIA Labs 06/19/23 07:24 06/19/23 07:24 Assessment and Plan (1) Abscess: Status: Acute (2) Abdominal hematoma: Status: Acute Plan An 88-year-old male with a past medical history of stroke, peripheral vascular disease, prostate cancer status post prostatectomy, venous insufficiency, heart failure, normocytic anemia, and 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 Initial workup for stroke was negative with CT and MRI of the head. He developed leukocytosis and hypotension with no source of infection. He was hydrated and started on empiric antibiotics. Further workup with CT of the abdomen and pelvis revealed a right retroperitoneal and iliopsoas abscess, which was drained by interventional radiology on 06/12 and grew E. coli. Blood cultures were negative. He was treated with Zosyn, and infectious disease recommends Augmentin for 10 days upon discharge. General surgery follows him and recommends leaving the drain in for a week and repeating the scan. His initial elevated white blood cell count has now normalized. Right retroperitoneal and iliopsoas abscess likely from infected hamatoma following fall, s/p IR drain on 06/12, culture = e coli, drain to remain in place for a week, then repeat CT per surgery. On Zosyn to be changed to Augmentin at discharge per ID rec, if repeat CT shows < 2 cm of abscess for total of 14 days of Abx. Repeat CT today left ingrown nail big toe with abscess s/p I and D by Dr. Kaminski, Abx as above, pain med PRN HLD statin History of DVT( 05/16/23 DVT study showed nonocculsive dvt of right popliteal dillan -was on eliquis )--Repeat US showed persistent clot and given recurret fall and risk of bleeding Dr. Kaminski inserted IVC on 06/19 and to avoid further anticoagulation Unsteady gait- chronic, MRI brain negative, PT recommend rehab when medically ready to go DVT prophylaxis- on subcu heparin need for inpatient; on IV antibiotic for infected hematoma/ IVC filter placement and possible discharge later today Possibly DC later today Time Spent With Patient Time: Total time managing care of this patient today ____ minutes. Quality Stroke Does the patient have a stroke diagnosis?: No VTE Prior VTE?: No VTE Risk Level:: Medical - moderate - high VTE Device Contraindication: Treatment Not Indicated VTE Drug Contraindication: N/A - Med Ordered
--- NOTE | 2023-06-20 09:18 | HO.VASCPN ---
Subjective Subjective Date of Service: 06/20/23 Patient reports: no new complaints and feels better Interval history: Patient seen examined. Postop day 1 status post IVC filter placement. No postprocedure complications. In addition his left great toe appears to be feeling better. Physical Exam Vital Signs: Vital Signs: Last Vital Signs Temp 96.1 F L 06/19/23 19:29 Pulse 68 06/19/23 19:29 Resp 18 06/19/23 19:29 BP 117/57 L 06/19/23 19:29 Pulse Ox 98 06/19/23 19:29 O2 Del Method Room Air 06/19/23 19:29 O2 Flow Rate 2 06/07/23 00:03 BMI result Body Mass Index 19.7 Const: General: cooperative, healthy appearing and no acute distress Orientation/consciousness: oriented to person, oriented to place and oriented to time HEENT: Head: Yes normal to inspection Neck: Carotids: no bruits Chest: Chest palpation & inspection: normal inspection of the chest Resp: Effort & Inspection: normal respiratory effort and able to speak in complete sentences Auscultation: clear to auscultation bilaterally Cardio: Rate: regular rate Heart sounds: S1 normal heart sound present and S2 normal heart sound present GI: Inspection: Yes normal to inspection Skin: Other: Left great toe erythema appears to have resolved. Pain improved. General skin exam: no rashes or lesions noted Wounds: no wounds Neuro: General: oriented to person, oriented to place, oriented to time and CN's II-XI intact bilaterally Extrem: General: Yes normal to inspection, Yes full ROM and Yes no clubbing, cyanosis or edema Psych: Appearance: grossly normal and well kempt Speech and movement: Normal speech and movement present Affect: normal affect Progress Note: A&P Assessment and plan (1) DVT (deep venous thrombosis): Status: Acute Assessment and Plan: Stable in terms of DVT now that filter has been placed. Would recommend anticoagulation if tolerated. Stable from our perspective for discharge. (2) Skin ulcer of left great toe: Status: Acute Assessment and Plan: Left great toe appears to be doing significantly better. Will continue to monitor the status of this. Would recommend continued dry protective dressing of that left great toe. Once again he can see us as an outpatient once discharged. Thank you for allowing us to assist in his care. Time Spent With Patient Time: Total time managing care of this patient today ____ minutes. Procedures Date of Service Date of Service: 06/20/23 Quality Stroke Does the patient have a stroke diagnosis?: No VTE Prior VTE?: No VTE Risk Level:: Medical - moderate - high VTE Device Contraindication: Treatment Not Indicated VTE Drug Contraindication: N/A - Med Ordered
[2023-06-20] MEDS: Heparin Sodium,Porcine 5,000 UNIT/ML VIAL 5000 UNIT SUBCUT (12:03)
--- NOTE | 2023-06-20 14:17 | MHC.CM.PN ---
IMM Pt has been medically cleared for DC. He is being transferred to [facility] for STR.
--- NOTE | 2023-06-20 14:31 | P.DS_ITS ---
DS: Providers Provider Date of Service: 06/20/23 Date of admission: 06/07/23 10:47 Primary care physician: Bobbi Harris MD Consults: 06/05/23 23:56 Consult to Neurology Routine Consulting Provider: [facility] Reason for consultation: TIA/stroke Has provider been notified: No 06/10/23 07:48 Consult to Infectious Diseases [place]ine [place] [facility] Reason for consultation: persistent leucocytosis Has provider been notified: No 06/10/23 13:20 Consult to Hematology / Oncology Routine Consulting Provider[place] [facility] [place] Reason for consultation: Persistent leucocytosis unclear etiology Has provider been notified: No 06/14/23 09:26 Consult to General Surgery Routine Consulting Provider[place] [facility] Reason for consultation: perinephric /iliopsoas colection-?infected hematoma Has provider been notified: No 06/16/23 12:16 Consult to Vascular Surgery Routine Consulting Provider: [facility] Reason for consultation: possible hematomas iliopsoas/perinephric area - ?eliquis use/hx of dvt Has provider been notified: No DS: Diagnosis Discharge Diagnosis (1) DVT (deep venous thrombosis): Status: Acute (2) Skin ulcer of left great toe: Status: Acute DS: Summary Hospital Course Hospital Course: 88-year-old male with past medical history of CVA peripheral vascular disease, history prostate cancer status post prostatectomy, venous insufficiency, HLD, normocytic anemia, history of SIADH/hyponatremia comes into the hospital with complaints of weakness. Patient reports that for the past few days has been progressively weaker, and today noticed that he has right-sided weakness. He is also complaining of low appetite. Therefore decided to come to the hospital. Denies any chest pain, no headache , no change in vision, no shortness of breath, no abdominal pain nausea or vomiting, no diarrhea constipation, no urinary symptoms and no lower extremity edema. On arrival to the ED patient hemodynamically stable, labs are significant for WBC count of 17.3 which is chronically elevated, INR of 1.7, sodium 132, potassium 3.1, Head and neck CT angiogram shows no significant dissection aneurysm or stenosis, CT head showed cerebral volume loss and moderate bilateral periventricular and central white matter diminished attenuation which is nonspecific Patient admitted for further evaluation. 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 Initial workup for stroke was negative with CT and MRI of the head. He developed leukocytosis and hypotension with no source of infection. He was hydrated and started on empiric antibiotics. Further workup with CT of the abdomen and pelvis revealed a right retroperitoneal and iliopsoas abscess, which was drained by interventional radiology on 06/12 and grew E. coli. Blood cultures were negative. He was treated with Zosyn, and infectious disease recommends Augmentin for 10 days upon discharge. General surgery follows him and recommends leaving the drain in for a week and repeating the scan. His initial elevated white blood cell count has now normalized. Right retroperitoneal and iliopsoas abscess likely from infected hamatoma following fall, s/p IR drain on 06/12, culture = e coli, drain to remain in place for a week, then repeat CT per surgery. He has been on Zosyn since 06/13 to be changed to Augmentin at discharge per ID rec for 21 days total. To have repeat CT done in about a week to 2 weeks and may also follow up with surgery on outpatient basis. left ingrown nail big toe with abscess s/p I and D by Dr. Remy, Shyanne as above, pain med PRN, per surgery looking better Left great toe appears to be doing significantly better. Will continue to monitor the status of this. Would recommend continued dry protective dressing of that left great toe. Once again he can see us as an outpatient once discharged HLD statin History of DVT( 05/16/23 DVT study showed nonocculsive dvt of right popliteal dillan -was on eliquis )--Repeat US showed persistent clot and given recurret fall and risk of bleeding Dr. Kaminski inserted IVC on 06/19 and to avoid further anticoagulation, Eliquis is stopped Unsteady gait- chronic, MRI brain negative, PT recommend rehab when medically ready to go To short term rehab Time Spent with Patient Time attestation: Total time managing care of this patient today ____ minutes. Discharge coordination time: Greater than 30 minutes Quality: Safe Use of Opioids Does Pt have an Active Cancer Diagnosis on the Problem List?: No Quality: Stroke Does the patient have a stroke diagnosis?: No Physical Exam Vital Signs: Vital Signs: Last Vital Signs Temp 96.1 F L 06/19/23 19:29 Pulse 68 06/19/23 19:29 Resp 18 06/19/23 19:29 BP 117/57 L 06/19/23 19:29 Pulse Ox 98 06/19/23 19:29 O2 Del Method Room Air 06/19/23 19:29 O2 Flow Rate 2 06/07/23 00:03 BMI result Body Mass Index 19.7 DS: Data Data Completed and Pending Labs on day of discharge: Preliminary micro results at discharge 06/12/23 16:40 Fungal Identification - Preliminary Abdomen - Abscess No growth to date. Discharge Plan Discharge Anticipated Discharge Date/Time: 06/20/23 15:57 Patient Disposition: Xfer SNF Discharge Diagnosis: hypotension ,leucocytosis , psoas abscess Referrals: [facility] [Other] - 1 Week Po,Bobbi Fitzgerald MD [Primary Care Provider] - 1 Week Discharge Medications: New amoxicillin-pot clavulanate 875-125 mg tablet 1 tab PO Q12H Qty: 28 0RF Continued aspirin [Adult Low Dose Aspirin] 81 mg tablet,delayed release (DR/EC) 81 mg PO DAILY Qty: 14 0RF cyproheptadine 4 mg tablet 4 mg PO BEDTIME Qty: 30 0RF (DME) Wheel chair Kit See Rx Instructions .Route Qty: 1 0RF Rx Instructions: 16 inch with elevating leg rest (manual) rosuvastatin 40 mg tablet 40 mg PO DAILY Qty: 30 3RF cyanocobalamin (vitamin B-12) 1,000 mcg Tablet 1,000 mcg PO DAILY ascorbic acid (vitamin C) 1,000 mg tablet extended release 1,000 mg PO DAILY sertraline 50 mg tablet 25 mg PO DAILY cholecalciferol (vitamin D3) 25 mcg (1,000 unit) capsule 25 mcg PO DAILY (DME) comp.stocking,knee,long,medium Misc See Rx Instructions .Route Qty: 2 0RF Rx Instructions: As directed albuterol sulfate [Ventolin HFA] 90 mcg/actuation HFA aerosol inhaler 2 puff inhalation Q4-6H PRN (Reason: shortness of breath or wheezing) Qty: 8.5 0RF meloxicam 15 mg tablet 15 mg PO DAILY Citrucel 500 mg tablet 500 mg PO DAILY Qty: 90 2RF Rx Instructions: take it with full glass of water polyethylene glycol 3350 [Miralax] 17 gram/dose powder 17 g PO DAILY Qty: 510 2RF Culturelle 15 billion cell capsule, sprinkle 1 cap PO DAILY Qty: 90 2RF Discontinued apixaban 5 mg tablet 5 mg PO BID Qty: 180 1RF Discharge Orders: Discharge Order (Routine); Ordered 06/20/23 Ordered By: Jace Engel Diet: Advance to usual diet Activity on Discharge: As tolerated Stand Alone Forms: Patient Portal Discharge page Other Ambulatory Orders: CT abdomen pelvis wo IV con (Routine) Timeframe: 1 Week Facility: [facility] - Location: CT Scan Ordered By: Jace Engel Activity Restrictions/Additional Instructions: Left great toe dry protective dressing to be changed daily Care Plan Goals: Recovery from Psoas abscess, weakness Health Concerns: Psoas abscesss DVT Plan of Treatment: Take Augmentin 875 mg twice daily for Psoas abscess and follow up with Dr Kaminsik, you will need a repeat CT of abdomen in a week to two Eliquis is discontinued, in its place IVC filter has been inserted. high risk for fall, should be assisted in all activities right before dc, pt say he was trying to go sit next to window w/o assistance, and slipped and sat on floor, didn't hit head, no hip pain, he is neurological intact, only 1 cm skin tear to righ elbow; he doesn't want to stay, discussed this w/ daughter kristina and explain to her and would like to honor pt's wishes, pt is no longer on anticoagulation, and giving no obvious injury would hold of imaging Assessment: as above.
[2023-06-20 14:55] VITALS: BP 113/59; PULSE 66; RESP 18; TEMP 36.2; O2SAT 97
[2023-06-20 16:49] VITALS: BP 129/55; PULSE 70; RESP 20; TEMP 36.8; O2SAT 96
--- NOTE | 2023-06-20 16:50 | PC.NURSE ---
Patient found sitting on the floor by staff MILAGROS sarah called to patient room by [employer] ADMINISTRATOR.Patient was sitting in the chair took his alarm off and tried to get up and sat on the floor,S[employer] ADMINISTRATOR assisted back to chair ,patient denies hitting his head ,small skin tear on right elbow,cleansed and covered with tegaderm,Dr. Engel notified,came in and assessed patient,Dr. Engel notified patient daughter,patient wants to be discharged stating he is feeling fine,ok to discharge patient per Dr. Engel
--- NOTE | 2023-06-20 16:51 | PM.EVENT ---
Event Note Date of Service: 06/20/23 Event Note: right before dc, pt say he was trying to go sit next to window w/o assistance, and slipped and sat on floor, didn't hit head, no hip pain, he is neurological intact, he doesn't want to stay, discussed this w/ daughter kristina and explain to her and would like to honor pt's wishes, pt is no longer on anticoagulation, and giving no obvious injury would hold of imaging Time Spent With Patient Time: Total time managing care of this patient today ____ minutes.
== END 2023-06-20 17:30 | disposition skilled nursing facility (03) | DRG 371 ==
LOC: HO.ED 18:43 → HO.EDOVER 06-06 01:45 → HO.IMC 06-06 07:14 → HO.S3 06-08 16:42
PROVIDERS: Hospitalist; Internal Medicine; Internal Medicine Medical Oncology; Radiology Vascular & Interventional Radiology; Surgery Vascular Surgery; Admitting Provider Internal Medicine; Emergency Provider Emergency Medicine Emergency Medical Services; PCP Internal Medicine; Visit Provider Internal Medicine
PROC: 0W9H30Z Drainage of Retroperitoneum with Drainage Device, Percutaneous Approach (ICD-10-PCS; principal; 2023-06-12 16:10)
PROC: 06H03DZ Insertion of Intraluminal Device into Inferior Vena Cava, Percutaneous Approach (ICD-10-PCS; principal; 2023-06-19 12:00)
DX: K68.19 Other retroperitoneal abscess (principal); K68.12 Psoas muscle abscess; I82.531 Chronic embolism and thrombosis of right popliteal vein; Z68.1 Body mass index [BMI] 19.9 or less, adult; E87.1 Hypo-osmolality and hyponatremia; B96.20 Unspecified Escherichia coli [E. coli] as the cause of diseases classified elsewhere; L60.0 Ingrowing nail; R63.6 Underweight; E78.5 Hyperlipidemia, unspecified; L97.529 Non-pressure chronic ulcer of other part of left foot with unspecified severity; D64.9 Anemia, unspecified; E86.0 Dehydration; I95.9 Hypotension, unspecified; Z90.79 Acquired absence of other genital organ(s); Z85.46 Personal history of malignant neoplasm of prostate; Z79.82 Long term (current) use of aspirin; Z79.899 Other long term (current) drug therapy
CPT/HCPCS: 36415; 37191; 70450; 70496; 70498; 70551; 71045; 74176; 74177; 75989; 80048; 80061; 81001; 81206; 81207; 82550; 82565; 82947; 83605; 83735; 84100; 84443; 84484; 84520; 85007; 85025; 85027; 85610; 85730; 87040; 87070; 87073; 87077; 87102; 87116; 87186; 87205; 87206; 93005; 93971; 97116; 97162; 97166; 97530; 97535; 99212; 99221; 99285; C1729; C1769; C1880; J0696; J1643; J2543; Q9967

== ENCOUNTER → 2023-06-06 00:34 | Outpatient (BNV) | payer MEDICARE, SELFPAY | PROVIDERS: Admitting Provider Internal Medicine; Emergency Provider Emergency Medicine Emergency Medical Services; PCP Internal Medicine; Visit Provider Internal Medicine Critical Care Medicine | DX: I63.9 Cerebral infarction, unspecified (principal) | CPT/HCPCS: 99497 ==

== ENCOUNTER → 2023-06-06 00:34 | Outpatient (BNV) | payer MEDICARE, SELFPAY | PROVIDERS: Admitting Provider Internal Medicine; Emergency Provider Emergency Medicine Emergency Medical Services; PCP Internal Medicine; Visit Provider Internal Medicine | DX: I82.431 Acute embolism and thrombosis of right popliteal vein (principal); L97.529 Non-pressure chronic ulcer of other part of left foot with unspecified severity | CPT/HCPCS: 99222; 99231; 99232; 99233; 99239 ==

== ENCOUNTER 2023-06-07 10:47 | Outpatient (BNV) | payer MEDICARE, SELFPAY | END 2023-06-12 16:24 | PROVIDERS: Admitting Provider Internal Medicine; Emergency Provider Emergency Medicine Emergency Medical Services; PCP Internal Medicine; Visit Provider Radiology Vascular & Interventional Radiology | DX: K68.19 Other retroperitoneal abscess (principal) | CPT/HCPCS: 49406; 99152 ==

== ENCOUNTER → 2023-06-07 10:47 | Outpatient (BNV) | payer MEDICARE, SELFPAY | PROVIDERS: Admitting Provider Internal Medicine; Emergency Provider Emergency Medicine Emergency Medical Services; PCP Internal Medicine; Visit Provider Surgery Vascular Surgery | DX: I82.431 Acute embolism and thrombosis of right popliteal vein (principal); L97.529 Non-pressure chronic ulcer of other part of left foot with unspecified severity | CPT/HCPCS: 37191; 99222; 99232 ==

== ENCOUNTER → 2023-06-07 10:47 | Outpatient (BNV) | payer MEDICARE, SELFPAY | PROVIDERS: Admitting Provider Internal Medicine; Emergency Provider Emergency Medicine Emergency Medical Services; PCP Internal Medicine; Visit Provider Surgery | DX: L02.91 Cutaneous abscess, unspecified (principal) | CPT/HCPCS: 99222; 99232 ==

== ENCOUNTER → 2023-06-07 10:47 | Outpatient (BNV) | payer MEDICARE, SELFPAY | PROVIDERS: Admitting Provider Internal Medicine; Emergency Provider Emergency Medicine Emergency Medical Services; PCP Internal Medicine; Visit Provider Internal Medicine | DX: S30.1XXA Contusion of abdominal wall, initial encounter (principal); L02.91 Cutaneous abscess, unspecified | CPT/HCPCS: 99222; 99232 ==

== ENCOUNTER 2023-07-01 14:20 | Outpatient (AMB) | payer MEDICARE, SELFPAY ==
--- NOTE | 2023-07-01 14:35 | MHC.OFFVIS ---
Intake Intake Visit Reasons: 2 week post op IVC filter 06/19/2023 Intake Note: 2 week follow up IVC Filter placement in renal vein 06/19/23. Pt is currently at [facility]. Pt states he is doing PT at Facility and has weakness in Left LE Accompanied by: Friend Allergies No Known Allergies Allergy (Mild, Verified 07/01/23 14:41) N/A HPI 2 week post op IVC filter 06/19/2023 HPI Details Frail 88-year-old gentleman with prior history of right lower extremity DVT. He was originally anticoagulated with Eliquis and developed an abdominal wall hematoma which had been drained by Dr. Julio of General surgery. The DVT appear to be acute on chronic and the decision was made to place an IVC filter. He had undergone IVC filter placement on 06/19/2023. Postprocedure he had no issues from the filter standpoint. He now presents for routine follow-up. [facility] Medical History Abscess Leukocytosis Normocytic anemia Hyponatremia Low sodium levels Hypercholesterolemia Prostate cancer Osteoarthritis, shoulder Venous insufficiency COVID-19 virus infection Surgical History History of radical prostatectomy Erectile dysfunction following urethral surgery Family History Father Diabetes Social History Household Members: Children Household Members Other:: daughter Housing: House Do you presently have visiting nurse or other home services: Yes ([facility]) Alcohol intake: never Patient Tobacco Use Status: Never used Tobacco e-Cigarette/Vaping Use: Never Used Second Hand Smoke Exposure: No Advance Directives Date on File: 08/24/21 service: No Current occupational status: retired 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, 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 [employer] Cognitive needs: Yes (cane) Hearing needs: No Vision needs: Yes Review of Systems Const Reports as per HPI ENT Reports no additional complaints Card Denies chest pain, Denies chest pain at rest and Denies chest pain with activity Resp Denies chest congestion and Denies cough GI Reports no additional complaints Musc Details: pain over varicosities, aching of lower extremities, swelling, cramping, heaviness and tiredness, itching Denies abnormal gait Skin/Breast Reports pruritus and Denies wounds Neuro Reports no additional complaints and Denies abnormal gait Psych Denies no additional complaints Physical Exam Const General: cooperative, healthy appearing and comfortable Orientation/consciousness: oriented to person, oriented to place and oriented to time Neck Carotids: no bruits Chest Chest palpation & inspection: normal inspection of the chest and normal palpation of entire chest wall Resp Effort & Inspection: normal respiratory effort and able to speak in complete sentences Cardio Rate: regular rate Heart sounds: S1 normal heart sound present and S2 normal heart sound present Peripheral pulses: Peripheral pulses 2+ throughout GI Other: Abdominal wall still has drain intact with serous drainage. Inspection: Yes abdominal wall ecchymosis Skin Other: +2 edema, bilateral calf skin color changes CEAP Classification C4 - skin color changes Ep - Etiology Primary As - superficial veins P - reflux General skin exam: dry skin Neuro General: oriented to person, oriented to place and oriented to time Extrem Right lower extremity: full ROM, normal capillary refill and edema Left lower extremity: full ROM, normal capillary refill and edema Psych Mental Status: mental status grossly normal Assessment & Plan Assessment & Plan (1) DVT (deep venous thrombosis): Code(s): I82.409 - Acute embolism and thrombosis of unspecified deep veins of unspecified lower extremity Qualifiers: DVT location: lower extremity Affected thrombotic vein of extremity: popliteal Chronicity: acute Laterality: right Qualified Code(s): I82.431 - Acute embolism and thrombosis of right popliteal vein Plan: Stable from a vascular perspective. We did discuss the filter and lifelong placement of the filter. Do not believe there is any indication for retrieval any time in the future. He will follow up with us on a p.r.n. basis. (2) Abdominal hematoma: Comment: Abscess abdomen, E coli aspirate,moya sensitive, seeded but no signs of organ rupture causing E coli Code(s): S30.1XXA - Contusion of abdominal wall, initial encounter Plan: He does not have a follow-up with General surgery regarding this abdominal wall hematoma. We did call over to the General surgery office and he is scheduled with a follow-up with Dr. Amaro for 15:00 tomorrow afternoon. Coding Level of Care Code Est Pt Level 3 (25087) Diagnoses Acute deep vein thrombosis (DVT) of popliteal vein of right lower extremity I82.431 DVT location: lower extremity Affected thrombotic vein of extremity: popliteal Chronicity: acute Laterality: right Abdominal hematoma S30.1XXA
== END 2023-07-01 14:54 | disposition home or self-care (01) ==
PROVIDERS: PCP Internal Medicine; Visit Provider Surgery Vascular Surgery
DX: I82.431 Acute embolism and thrombosis of right popliteal vein (principal); S30.1XXA Contusion of abdominal wall, initial encounter
CPT/HCPCS: 99213

== ENCOUNTER → 2023-07-01 14:20 | Outpatient (BNVA) | payer MEDICARE, SELFPAY | PROVIDERS: PCP Internal Medicine; Visit Provider Surgery Vascular Surgery | DX: I82.431 Acute embolism and thrombosis of right popliteal vein (principal); S30.1XXD Contusion of abdominal wall, subsequent encounter | CPT/HCPCS: 99212 ==

== ENCOUNTER 2023-07-02 14:37 | Outpatient (AMB) | payer MEDICARE, SELFPAY ==
--- NOTE | 2023-07-02 14:40 | A.OFFVIS_ITS ---
Intake Intake Visit Reasons: hospital follow-up, drain removal Intake Note: This patient presents for an assessment for hospital follow-up for drain removal. Patient c/o; reports no changes. Design Engineering Manager Required: No Accompanied by: Other Relationship Allergies No Known Allergies Allergy (Mild, Verified 07/02/23 14:48) N/A Medication List - Last Reconciled 07/02/23 by Mike Amaro MD albuterol sulfate 90 mcg/actuation (Ventolin HFA) 2 puffs inhalation Q4-6H PRN amoxicillin-pot clavulanate 875-125 mg 1 tab PO Q12H ascorbic acid (vitamin C) ER 1,000 mg PO DAILY aspirin (Adult Low Dose Aspirin) 81 mg PO DAILY chair, wheel (Wheel chair) 16 inch with elevating leg rest (manual) cholecalciferol (vitamin D3) 25 mcg PO DAILY comp.stocking,knee,long,medium As directed cyanocobalamin (vitamin B-12) 1,000 mcg PO DAILY cyproheptadine 4 mg PO BEDTIME Lactobacillus rhamnosus GG (Culturelle) 1 cap PO DAILY meloxicam 15 mg PO DAILY methylcellulose (laxative) (Citrucel) 500 mg PO DAILY polyethylene glycol 3350 (Miralax) 17 grams PO DAILY rosuvastatin 40 mg PO DAILY sertraline 25 mg PO DAILY HPI hospital follow-up, drain removal HPI Details 88-year-old male here for follow-up for a retroperitoneal hematoma along the psoas muscle on the right side. He underwent CT drain of this hematoma last 06/12/2023. There was note of growth of E coli that time. He has had a drain in place. He was being followed by Dr. Julio. He had a follow-up CT scan last June 20 and there was note of significant interval decrease in the hematoma. He denies any fever or chills. He says he feels well overall. He denies any complaints except for some weakness. He is still in a rehab institution at this time. [facility] Medical History Abscess Leukocytosis Normocytic anemia Hyponatremia Low sodium levels Hypercholesterolemia Prostate cancer Osteoarthritis, shoulder Venous insufficiency COVID-19 virus infection Surgical History History of radical prostatectomy Erectile dysfunction following urethral surgery Family History Father Diabetes Social History Household Members: Children Household Members Other:: daughter Housing: House Do you presently have visiting nurse or other home services: Yes ([facility]) Alcohol intake: never Patient Tobacco Use Status: Never used Tobacco e-Cigarette/Vaping Use: Never Used Second Hand Smoke Exposure: No Advance Directives Date on File: 08/24/21 service: No Current occupational status: retired 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, 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 [employer] Cognitive needs: Yes (cane) Hearing needs: No Vision needs: Yes Review of Systems Const Denies chills and Denies fever(s) Card Denies chest pain, Denies dyspnea and Reports dyspnea on exertion Resp Denies cough, Denies dyspnea and Reports dyspnea on exertion GI Denies hematochezia and Denies change in bowel habits Denies hematuria and Denies difficulty urinating Musc Reports back pain, Reports myalgias, Denies limited range of motion and Reports muscle weakness Neuro Denies focal weakness and Denies convulsions Psych Denies depression and Denies mood swings Physical Exam Const General: comfortable and no acute distress Resp Effort & Inspection: normal respiratory effort Cardio Rate: regular rate GI Palpation (GI): Soft to palpation and nontender Extrem Other: Pigtail catheter drain in place on the right side, very scanty clear output Assessment & Plan Assessment & Plan (1) Psoas abscess: Code(s): K68.12 - Psoas muscle abscess Plan: He had an IR drain placed for this. His follow-up CT scan showed significant interval decrease. He has had very minimal output from his drain. I pulled this out without difficulty. The tip was intact He can follow up on a p.r.n. basis. Coding Level of Care Code Est Pt Level 3 (21043) Diagnoses Psoas abscess K68.12
== END 2023-07-02 15:20 | disposition home or self-care (01) ==
PROVIDERS: PCP Internal Medicine; Visit Provider Surgery
DX: K68.12 Psoas muscle abscess (principal)
CPT/HCPCS: 99213

== ENCOUNTER → 2023-07-02 14:37 | Outpatient (BNVA) | payer MEDICARE, SELFPAY | PROVIDERS: PCP Internal Medicine; Visit Provider Surgery | DX: K68.12 Psoas muscle abscess (principal) | CPT/HCPCS: 99212 ==

== ENCOUNTER 2023-07-21 12:27 | Outpatient (AMB) | payer MEDICARE, SELFPAY ==
--- NOTE | 2023-07-21 12:37 | A.OFFVIS_ITS ---
Intake VS Expanded 07/21/23 12:39 07/21/23 13:21 Height 5 ft 10 in 5 ft 10 in Weight 138 lb 14.259 oz 139 lb BMI 19.9 19.9 Intake Visit Reasons: Obesity Allergies No Known Allergies Allergy (Mild, Verified 07/02/23 14:48) N/A HPI Nutrition Presentation Details Pt presents for MNT for Anorexia. [place] [facility] [place] reports he had lost appetite related to UTI. He reports that after treatment his appetite has gotten better. Pt reports his weight about a 1 1/2 m ago reached 118 lbs and he reports his most recent weight at home was 125 lbs last week. Patient presents with and neighbor who helps with transportation. Patient reports he has daughter stays with him during the day and now his son stays with him during the night. Patient reports he is receiving meals from [employer] once a day and he is consuming 100% the meals. Breakfast may consist of Swiss toast with syrup and coffee or 2 toast or bagel with butter and coffee with cream and sugar L soup (chicken noodle) and crackers or half a sandwich, may drink water or milk or juice Dinner: [employer] (mashed potatoes, chicken engraving, fruit, milk, green beans) Snacks on: devil dogs , cookies Denies constipation or diarrhea CPU-Bcloyij-Vw.Jeor Equation Height 5 ft 10 in Weight 139 lb Resting Metabolic Rate 1318.07 Calculated Activity Level Mild Activity Calories Needed to Maintain Weight 1812.35 Diagnosis Nutrition problem #1 unintended weight loss As related to (etiology) #1 decreased appetite As evidenced by (sign/symptom) #1 weight loss Most Recent Diabetes Results: Cholesterol 73 mg/dL (<200) 06/06/23 HDL Cholesterol 31 mg/dL (>40) L 06/06/23 Triglycerides 156 mg/dL (<150) H 06/06/23 Creatinine 0.59 mg/dL (0.5-1.4) 06/19/23 Blood Urea Nitrogen 19 mg/dL (9-16) H 06/19/23 Sodium 138 mmol/L (135-145) 06/19/23 Potassium 3.6 mmol/L (3.3-5.1) 06/19/23 Chloride 106 mmol/L (96-108) 06/19/23 Carbon Dioxide 26 mmol/L (22-29) 06/19/23 Calcium 9.6 mg/dL (8.4-10.2) 06/19/23 PFSH Medical History Abscess Leukocytosis Normocytic anemia Hyponatremia Low sodium levels Hypercholesterolemia Prostate cancer Osteoarthritis, shoulder Venous insufficiency COVID-19 virus infection Surgical History History of radical prostatectomy Erectile dysfunction following urethral surgery Family History Father Diabetes Social History Household Members: Children Household Members Other:: daughter Housing: House Do you presently have visiting nurse or other home services: Yes ([facility]) Alcohol intake: never Patient Tobacco Use Status: Never used Tobacco e-Cigarette/Vaping Use: Never Used Second Hand Smoke Exposure: No Advance Directives Date on File: 08/24/21 service: No Current occupational status: retired 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, 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 [employer] Cognitive needs: Yes (cane) Hearing needs: No Vision needs: Yes Assessment & Plan Assessment & Plan (1) Decreased appetite: Code(s): R63.0 - Anorexia Plan: wt: 63 kg Est kcal needs as per MSJ: 1800 + 500/100= 0618-4452 (40% carb, 30% protein/fat) Est fluid needs as per 25-30 ml/d: 1600- 1900 Est prot per day as per 1 g/kg bw: 63 Recommend fiber intake : 8-10 g per day and gradually increase to 35-38 g for men or as tolerated Recommend sodium intake per day : less than 2000 mg Educated patient on: ( R = reviewed V = verbalizes understanding N/R = needs review N/A = not applicable * Including protein rich foods in diet, keeping hydrated and including omega 3 fatty acids: R, V * Food sources of carbohydrate, adequate serving sizes and its role in various health conditions: NR * Differences between complex carbohydrates a simple carbohydrates, role of fiber in diet: NR * Differences between types of fats and role in diet (mono on saturated fat fatty acids, saturated fatty acids, trans fats): NR * Food sources of sodium in salt and healthy modifications for heart health in kidney health: NR * Vitamins and minerals: NR * Healthy plate method concept: R * Physical activity: Benefits a precaution: NR Patient Instructions: Gradually add protein in your diet and keep hydrated - Add a serving of protein at breakfast ( example cheese to bread or to the muffin in the morning) - add a serving of protein at lunch to your soup (example add boiled egg or cooked chicken to chicken noodle soup) - Add peanut butter to warm milk at least once a day and 1 tablespoon of creamy peanut butter to the cookies in your afternoon snack 0 Add 1 tsp of oil to your dinner meal Keep hydrated by having milk, juice, juice diluted with water with your meals continue ensure high protein at least 2 a day call for questions Coding Level of Care Code Nutr Indiv Intake (34585) Diagnoses Decreased appetite R63.0 Time Spent (min) 30
[2023-07-21 12:39] VITALS: BMI 19.9
[2023-07-21 13:21] VITALS: BMI 19.9
== END 2023-07-21 13:07 | disposition home or self-care (01) ==
PROVIDERS: PCP Internal Medicine; Visit Provider Dietitian, Registered
DX: R63.0 Anorexia (principal)

== ENCOUNTER → 2023-07-21 12:27 | Outpatient (BNVA) | payer MEDICARE, SELFPAY | PROVIDERS: PCP Internal Medicine; Visit Provider Dietitian, Registered | DX: R63.0 Anorexia (principal) | CPT/HCPCS: 97802 ==

== ENCOUNTER 2023-08-04 09:37 | Outpatient (AMB) | payer MEDICARE, SELFPAY ==
[2023-08-04 09:39] VITALS: BP 98/66; BMI 19.2
--- NOTE | 2023-08-04 09:39 | MHC.PC.OV ---
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 Allergies No Known Allergies Allergy (Mild, Verified 08/04/23 09:43) N/A Medication List - Last Reconciled 08/04/23 by Bobbi Harris MD ascorbic acid (vitamin C) ER 1,000 mg PO DAILY aspirin (Adult Low Dose Aspirin) 81 mg PO DAILY chair, wheel (Wheel chair) 16 inch with elevating leg rest (manual) cholecalciferol (vitamin D3) 25 mcg PO DAILY comp.stocking,knee,long,medium As directed cyproheptadine 4 mg PO BEDTIME Lactobacillus rhamnosus GG (Culturelle) 1 cap PO DAILY methylcellulose (laxative) (Citrucel) 500 mg PO DAILY polyethylene glycol 3350 (Miralax) 17 grams PO DAILY rosuvastatin 40 mg PO DAILY sertraline 50 mg PO DAILY Tobacco use date assessed: 08/04/23 Fall risk assessment: 1 Fall in past year Last assessed Fall Risk: 08/04/23 HPI follow up HPI Details 88-year-old male with a history of CVA hypercholesterolemia peripheral vascular disease history of prostate cancer status post prostatectomy, SIADH. In June had a CT of the abdomen showing a right retroperitoneal and iliopsoas abscess drained 06/12/2023 grew E coli. coming in for follow-up. Last seen in January 2023. Patient has a history of retroperitoneal hematoma along the psoas muscle on the right side under with drainage June 2023 CT in June 20 interval decrease in the buttock. Patient was also seen by vascular surgeon had an IVC filter placement in the renal vein June 2023 patient did have a history of mechanical fall April 2023 history of DVT right popliteal May 2023.. Noted also in February was in the hospital for sepsis UTI [facility] Medical History Abscess Leukocytosis Normocytic anemia Hyponatremia Low sodium levels Hypercholesterolemia Prostate cancer Osteoarthritis, shoulder Venous insufficiency COVID-19 virus infection Surgical History History of radical prostatectomy Erectile dysfunction following urethral surgery Family History Father Diabetes Household Members: Children Household Members Other:: daughter Housing: House Do you presently have visiting nurse or other home services: Yes ([facility]) Alcohol intake: never Patient Tobacco Use Status: Never used Tobacco e-Cigarette/Vaping Use: Never Used Second Hand Smoke Exposure: No Advance Directives Date on File: 08/24/21 service: No Current occupational status: retired 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 How often do you have a drink containing alcohol?: Monthly or less 2. How many drinks containing alcohol do you have on a typical day when you are drinking?: 1 or 2 3. How often do you have six or more drinks on one occasion?: Never Total Score: 1 Score Reviewed/Action Taken: No NESHA-7 AMB Questionnaire NESHA-7 Date NESHA - 7 assessed: 10/11/22 Source: Developed by Drs. Warner Gandhi, Ava Machuca, Mt Calderon and colleagues, with an educational conrad from [employer]. Physical exam (Primary Care) Vital Signs: Last Vital Signs BP 98/66 08/04/23 09:39 Oxygen Delivery Method Room Air 08/04/23 09:39 BMI result Body Mass Index 19.2 Tobacco/Smoking Status: Tobacco use Status Tobacco use date assessed 08/04/23 08/04/23 09:40 Patient Tobacco Use Status Never used Tobacco 08/04/23 09:40 e-Cigarette/Vaping Use Never Used 08/04/23 09:40 Thrive Assessment: Date of Thrive Assessment Date Thrive assessed 06/07/23 08/04/23 09:40 Const General: alert; No acute distress Eyes Conjunctivae: conjunctivae normal Resp Auscultation: clear to auscultation bilaterally Cardio Rate: regular rate Rhythm: regular rhythm GI Inspection: Yes normal to inspection Extrem General: Yes normal to inspection and No edema Assessment and Plan Assessment & Plan (1) Prostate cancer: Comment: 2000 radical prostatectomy adjuvant radiotherapy for elevated PSA 2008 Code(s): C61 - Malignant neoplasm of prostate Plan: Patient continues to follow-up with Urology (2) Anemia: Code(s): D64.9 - Anemia, unspecified Qualifiers: Anemia type: unspecified type Qualified Code(s): D64.9 - Anemia, unspecified Plan: Will continue to follow-up blood count (3) Recurrent major depression: Code(s): F33.9 - Major depressive disorder, recurrent, unspecified Qualifiers: Active/Remission status: remission status unspecified Qualified Code(s): F33.9 - Major depressive disorder, recurrent, unspecified Plan: Continuing with therapy (4) DVT (deep venous thrombosis): Code(s): I82.409 - Acute embolism and thrombosis of unspecified deep veins of unspecified lower extremity Qualifiers: DVT location: lower extremity Affected thrombotic vein of extremity: popliteal Chronicity: acute Laterality: right Qualified Code(s): I82.431 - Acute embolism and thrombosis of right popliteal vein Plan: Patient had IVC filter placed in (5) Abdominal hematoma: Comment: Abscess abdomen, E coli aspirate,moya sensitive, seeded but no signs of organ rupture causing E coli Code(s): S30.1XXA - Contusion of abdominal wall, initial encounter Plan: This was drained in follows up with the surgeon (6) Hypercholesterolemia: Code(s): E78.00 - Pure hypercholesterolemia, unspecified Plan: Avoid fried foods, chicken skin, eggs, butter margarine, pastries and meat. Be it pork or beef they have a lot of cholesterol LDL goal of less than 130 and triglyceride of less than 150. Patient on rosuvastatin 40 mg once a day (7) Urinary incontinence: Comment: 06/2020 Dr. Chaudhary [facility] 800 urinary control system Code(s): R32 - Unspecified urinary incontinence Plan: has a pump and uses to empty bladder Orders: Orders Comprehensive Met. Panel Today E22.2 - Syndrome of inappropriate secretion of antidiuretic hormone Free T4 (Free Thyroxine) Today E22.2 - Syndrome of inappropriate secretion of antidiuretic hormone IRON PROFILE Today E22.2 - Syndrome of inappropriate secretion of antidiuretic hormone Reticulocyte Count Today E22.2 - Syndrome of inappropriate secretion of antidiuretic hormone Vitamin B12 and Folate Today E22.2 - Syndrome of inappropriate secretion of antidiuretic hormone PSA,Total (Free>4and<10) Today C61 - Malignant neoplasm of prostate Complete Blood Count Auto Diff Today E22.2 - Syndrome of inappropriate secretion of antidiuretic hormone Thyroid Stimulating Hormone Today E22.2 - Syndrome of inappropriate secretion of antidiuretic hormone Ferritin Today E22.2 - Syndrome of inappropriate secretion of antidiuretic hormone Medications: New sertraline 50 mg PO DAILY 90 tabs 1RF F33.9 - Major depressive disorder, recurrent, unspecified Refilled Lactobacillus rhamnosus GG (Culturelle) 1 cap PO DAILY 90 caps 2RF rosuvastatin 40 mg PO DAILY 30 tabs 3RF E78.00 - Pure hypercholesterolemia, unspecified cyproheptadine 4 mg PO BEDTIME 90 tabs 1RF Discontinued albuterol sulfate 90 mcg/actuation (Ventolin HFA) Discontinued Reason: Doctor's Order 2 puffs inhalation Q4-6H PRN 8.5 grams 0RF shortness of breath or wheezing R05.9 - Cough, unspecified rosuvastatin Discontinued Reason: None 40 mg PO DAILY 30 tabs 3RF E78.00 - Pure hypercholesterolemia, unspecified Lactobacillus rhamnosus GG (Culturelle) Discontinued Reason: Doctor's Order 1 cap PO DAILY 90 caps 2RF Coding Level of Care Code Est Pt Level 4 (06115) Diagnoses Prostate cancer C61 Anemia, unspecified type D64.9 Anemia type: unspecified type Recurrent major depressive disorder, remission status unspecified F33.9 Active/Remission status: remission status unspecified Acute deep vein thrombosis (DVT) of popliteal vein of right lower extremity I82.431 DVT location: lower extremity Affected thrombotic vein of extremity: popliteal Chronicity: acute Laterality: right Abdominal hematoma S30.1XXA Hypercholesterolemia E78.00 Urinary incontinence R32
== END 2023-08-04 10:34 | disposition home or self-care (01) ==
PROVIDERS: PCP Internal Medicine; Visit Provider Internal Medicine
DX: C61 Malignant neoplasm of prostate (principal); D64.9 Anemia, unspecified; F33.9 Major depressive disorder, recurrent, unspecified; I82.431 Acute embolism and thrombosis of right popliteal vein; S30.1XXA Contusion of abdominal wall, initial encounter; E78.00 Pure hypercholesterolemia, unspecified; R32 Unspecified urinary incontinence
CPT/HCPCS: 99214

== ENCOUNTER 2023-10-08 09:15 | Outpatient (REF) | payer MEDICARE, SELFPAY ==
[2023-10-08 09:54] LABS: MANUAL DIFF FLAG NO
[2023-10-08 10:33] LABS: Basophils Absolute Auto 0.1 X10*3/uL (0.0-0.2); Basophils Percent Auto 0.9 % (0-2); Eosinophils Absolute Auto 0.2 X10*3/uL (0.0-0.4); Eosinophils Percent Auto 2.3 % (0-4); Hemoglobin 12.7 g/dl (14.0-18.0); Imm Gran Abs Auto 0.02 X10*3/uL (0.00-0.03); Imm Gran Pct Auto 0.3 % (0.0-0.4); Immature Retic Fraction 8.1 % (2.3-13.4); Lymphocytes Percent Auto 28.6 % (20-40); Mean Corpuscular HGB Conc 32.6 g/dl (31.0-36.0); Mean Corpuscular Hemoglobin 31.1 pg (27.0-33.0); Mean Corpuscular Volume 95.4 fL (80.0-98.0); Mean Platelet Volume 9.6 fL (9.4-12.4); Monocytes Absolute Auto 0.6 X10*3/uL (0.1-1.2); Monocytes Percent Auto 8.9 % (2-11); Platelet Count 177 X10*3/uL (160-400); Red Blood Count 4.09 X10*6/uL (4.60-5.80); Red Cell Distribution Width 13.3 % (11.0-16.0); Retic HGB Equivalent 35.9 pg (30.0-35.0); Reticulocyte Percent 0.8 % (0.5-1.8); Reticulocytes Absolute 0.034 X10*6/uL (0.026-0.095); White Blood Count 6.8 X10*3/uL (4.8-10.8)
[2023-10-08 10:44] LABS: Appearance Urine Clear; Color Urine Yellow; Glucose Urine UA Negative (Negative); Leukocyte Esterase Urine Negative (Negative); Nitrite Urine Negative (Negative); PH 5.5 (5.0-9.0); Specific Gravity - Urine 1.015 (1.005-1.025); UMIC TRIGGER UACC YES; Urine Blood Small (1+) (Negative); Urine Ketones Negative (Negative); Urine Protein Negative (Neg-Trace)
[2023-10-08 11:10] LABS: Bacteria Urine None Seen (None Seen); Hyaline Casts Urine 0-2 /LPF (0-2); Squamous Epithelial Cell Urine 0-2 /HPF (0-2); WBC Urine 0-5 /HPF (0-5)
[2023-10-08 11:27] LABS: Alanine Aminotransferase 12 U/L (0-40); Albumin Level 3.5 g/dL (3.5-5.0); Alkaline Phosphatase 89 U/L (39-117); Anion Gap 11 (12-20); Aspartate Amino Transferase 19 U/L (5-37); Bilirubin Total 0.3 mg/dL (0.0-1.0); Blood Urea Nitrogen 10 mg/dL (9-16); Calcium 10.3 mg/dL (8.4-10.2); Carbon Dioxide 29 mmol/L (22-29); Chloride 105 mmol/L (96-108); Estimated Glomerular Filt Rate > 60; Glucose Random 90 mg/dL (60-115); Iron 98 mcg/dL (45-160); Percent Iron Saturation 38 % (15-50); Potassium 4.1 mmol/L (3.3-5.1); Sodium 141 mmol/L (135-145); Total Iron Binding Capacity 259 mcg/dL (228-428); Total Protein 7.1 g/dL (6.5-8.0); Unsaturated Iron Binding 161 ug/dL
[2023-10-08 11:31] LABS: PSA,Total (Free>4and<10) < 0.10 ng/mL (0.00-4.00)
[2023-10-08 11:32] LABS: Ferritin 135 ng/mL (20-250); Thyroid Stimulating Hormone 1.67 uIU/mL (0.32-4.0)
[2023-10-08 12:20] LABS: Folate 8.4 ng/mL (> or = 4.0); Vitamin B12 1161 pg/mL (200-900)
== END 2023-10-08 09:16 | disposition home or self-care (01) ==
LOC: HO.LAB 09:15
PROVIDERS: PCP Internal Medicine; Visit Provider Internal Medicine
DX: E22.2 Syndrome of inappropriate secretion of antidiuretic hormone (principal); C61 Malignant neoplasm of prostate; R39.9 Unspecified symptoms and signs involving the genitourinary system; Z12.5 Encounter for screening for malignant neoplasm of prostate
CPT/HCPCS: 36415; 80053; 81001; 82607; 82728; 82746; 83540; 84153; 84439; 84443; 85025; 85045

== ENCOUNTER 2023-10-28 10:23 | Outpatient (AMB) | payer MEDICARE, SELFPAY ==
[2023-10-28 10:34] VITALS: BP 100/62; PULSE 61; O2SAT 99; BMI 22.2
--- NOTE | 2023-10-28 10:34 | A.OFFPC_ITS ---
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 Allergies No Known Allergies Allergy (Mild, Verified 10/28/23 10:35) N/A Medication List - Last Reconciled 10/28/23 by Bobbi Harris MD ascorbic acid (vitamin C) ER 1,000 mg PO DAILY aspirin (Adult Low Dose Aspirin) 81 mg PO DAILY chair, wheel (Wheel chair) 16 inch with elevating leg rest (manual) cholecalciferol (vitamin D3) 25 mcg PO DAILY comp.stocking,knee,long,medium As directed Lactobacillus rhamnosus GG (Culturelle) 1 cap PO DAILY methylcellulose (laxative) (Citrucel) 500 mg PO DAILY polyethylene glycol 3350 (Miralax) 17 grams PO DAILY rosuvastatin 40 mg PO DAILY sertraline 50 mg PO DAILY vibegron 75 mg PO DAILY Tobacco use date assessed: 10/28/23 Fall risk assessment: No Falls in past year Last assessed Fall Risk: 10/28/23 Dental Screening Dental Screen Date: 10/28/23 HPI anxiety and depression, hx of cva HPI Details 88-year-old male with a history of prost ate cancer anemia recurrent major depression history of DVT with an IVC filter hypercholesterolemia and urinary incontinence. Coming in for follow-up last seen in July 2023. With the anemia has been sent to Hematology-Oncology chronic normocytic anemia no hematinic deficiencies normal kidney and liver function workup IgG kappa monoclonal band without significant elevation in immunoglobulin level. As for the DVT discontinued anticoagulation in May 2023 due to abdominal hematoma. IVC filter June 2023. Patient has just seen Dr. Chaudhary also. placed on [employer]. asking about driving. no reason on the chart to stop. L shoulder pain deny fall or trauma. [facility] Medical History (Updated 10/28/23 @ 11:47 by Bobbi Harris MD) Varicose veins of right lower extremity with inflammation Leg wound, right Decreased appetite Adult general medical exam Diarrhea Cellulitis Dysphagia Nausea Frequency of micturition Venous insufficiency COVID-19 virus infection Leukocytosis Normocytic anemia Hyponatremia Low sodium levels Hypercholesterolemia Prostate cancer Osteoarthritis, shoulder Surgical History History of radical prostatectomy Erectile dysfunction following urethral surgery Family History Father Diabetes Social History Household Members: Children Household Members Other:: daughter Housing: House Do you presently have visiting nurse or other home services: Yes ([facility]) Alcohol intake: never Patient Tobacco Use Status: Never used Tobacco e-Cigarette/Vaping Use: Never Used Second Hand Smoke Exposure: No Advance Directives Date on File: 08/24/21 service: No Current occupational status: retired 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 1. Little interest or pleasure in doing things: not at all 2. Feeling down, depressed, or hopeless: not at all 3. Trouble falling or staying asleep, or sleeping too much: not at all 4. Feeling tired or having little energy: not at all 5. Poor appetite or overeating: not at all 6. Feeling bad about yourself - or that you are a failure or have let yourself or your family down: not at all 7. Trouble concentrating on things, such as reading the newspaper or watching television: not at all 8. Moving or speaking so slowly that other people could have noticed. Or the opposite - being so fidgety or restless that you have been moving around a lot more than usual: not at all 9. Thoughts that you would be better off or of hurting yourself in some way: not at all Total score: 0 Depression Screening Interpretation: Positive Depression Screening Follow-up: Existing condition, In treatment and Change in Medication Depression Screening Done: Yes 45369 - PHQ-9 Billing: Yes Source: Developed by Drs. Warner Gandhi, Ava Machuca, Mt Calderon and colleagues, with an educational conrad from [employer]. Thrive Questionnaire Date Thrive assessed: 06/07/23 I am a: Patient What is your living situation today?: I have a steady place to live Within the past 12 months, did the food you bought not last and you didn't have the money to get more?: Never true Within the past 12 months, did you worry whether your food would run out before you got money to buy more?: Never true Do you have trouble paying for medicines?: No Do you have trouble getting transportation to medical appointments?: No Do you have trouble paying your heating and electricity bill?: No Do you have trouble taking care of your child, family member or friend?: No Do you have trouble with day-to-day activities such as bathing, preparing meals, shopping, managing finances, etc.?: No Are you currently unemployed and looking for a job?: No Are you interested in more education?: No Please select the resources that you would like help with: None THRIVE Score: 0 AUDIT C Alcohol Use Questionnaire (AUDIT-C) 1. How often do you have a drink containing alcohol?: Monthly or less 2. How many drinks containing alcohol do you have on a typical day when you are drinking?: 1 or 2 3. How often do you have six or more drinks on one occasion?: Never Total Score: 1 Score Reviewed/Action Taken: No NESHA-7 AMB Questionnaire NESHA-7 Date NESHA - 7 assessed: 10/28/23 Feeling nervous, anxious, or on edge: 0 = Not at all Not being able to stop or control worryin = Not at all Worrying too much about different things: 0 = Not at all Trouble relaxin = Not at all Being so restless that it is hard to sit still: 0 = Not at all Becoming easily annoyed or irritable: 0 = Not at all Feeling afraid as if something awful might happen: 0 = Not at all Total NESHA-7 score (0-4 normal; 5-9 mild; 10-14 moderate; 15-21 severe): 0 Source: Developed by Drs. Warner Gandhi, Ava Machuca, Mt Calderon and colleagues, with an educational conrad from [employer]. Physical exam (Primary Care) Vital Signs: Last Vital Signs Pulse 61 10/28/23 10:34 BP 100/62 10/28/23 10:34 Pulse Ox 99 10/28/23 10:34 Oxygen Delivery Method Room Air 02/20/24 10:34 BMI result Body Mass Index 22.2 Tobacco/Smoking Status: Tobacco use Status Tobacco use date assessed 10/28/23 10/28/23 10:36 Patient Tobacco Use Status Never used Tobacco 10/28/23 10:36 e-Cigarette/Vaping Use Never Used 10/28/23 10:36 PHQ-9: PHQ-9 Score PHQ-9: Total score 0 10/28/23 11:11 Depression Screening Interpretation: Positive Depression Screening Follow-up: Existing condition, In treatment and Change in Medication Thrive Assessment: Date of Thrive Assessment Date Thrive assessed 06/07/23 10/28/23 10:36 Const General: alert; No acute distress Eyes Conjunctivae: conjunctivae normal Resp Auscultation: clear to auscultation bilaterally Cardio Rate: regular rate Rhythm: regular rhythm GI Inspection: Yes normal to inspection Extrem General: Yes normal to inspection and No edema Assessment and Plan Assessment & Plan (1) Prostate cancer: Comment: 2000 radical prostatectomy adjuvant radiotherapy for elevated PSA 2008 Code(s): C61 - Malignant neoplasm of prostate Plan: Patient continues to be followed up by Urology (2) Hypercholesterolemia: Code(s): E78.00 - Pure hypercholesterolemia, unspecified Plan: Avoid fried foods, chicken skin, eggs, butter margarine, pastries and meat. Be it pork or beef they have a lot of cholesterol LDL goal of less than 130 and triglyceride of less than 150 May 2023 last blood work (3) Recurrent major depression: Comment: has good support. Code(s): F33.9 - Major depressive disorder, recurrent, unspecified Qualifiers: Active/Remission status: remission status unspecified Qualified Code(s): F33.9 - Major depressive disorder, recurrent, unspecified Plan: Continue with sertraline (4) DVT (deep venous thrombosis): Comment: 2022 with IVC filter Code(s): I82.409 - Acute embolism and thrombosis of unspecified deep veins of unspecified lower extremity Qualifiers: DVT location: lower extremity Affected thrombotic vein of extremity: popliteal Chronicity: acute Laterality: right Qualified Code(s): I82.431 - Acute embolism and thrombosis of right popliteal vein Plan: Continue to follow-up with Hematology-Oncology (5) Urinary incontinence: Comment: 06/2020 Dr. Chaudhary AMS 800 urinary control system Code(s): R32 - Unspecified urinary incontinence Plan: Placed on gemtessa by Urology (6) Anemia: Code(s): D64.9 - Anemia, unspecified Qualifiers: Anemia type: unspecified type Qualified Code(s): D64.9 - Anemia, unspecified Plan: Resolving. Coding Level of Care Code Est Pt Level 4 (32278) Diagnoses Prostate cancer C61 Hypercholesterolemia E78.00 Recurrent major depressive disorder, remission status unspecified F33.9 Active/Remission status: remission status unspecified Acute deep vein thrombosis (DVT) of popliteal vein of right lower extremity I82.431 DVT location: lower extremity Affected thrombotic vein of extremity: popliteal Chronicity: acute Laterality: right Urinary incontinence R32 Anemia, unspecified type D64.9 Anemia type: unspecified type
== END 2023-10-28 11:55 | disposition home or self-care (01) ==
PROVIDERS: PCP Internal Medicine; Visit Provider Internal Medicine
DX: I82.431 Acute embolism and thrombosis of right popliteal vein (principal); C61 Malignant neoplasm of prostate; F33.9 Major depressive disorder, recurrent, unspecified; E78.00 Pure hypercholesterolemia, unspecified; R32 Unspecified urinary incontinence; D64.9 Anemia, unspecified
CPT/HCPCS: 99214

== ENCOUNTER 2023-11-14 09:43 | Outpatient (REF) | payer MEDICARE, SELFPAY ==
--- NOTE | ~2023-11-14 | FL_ITS ---
EXAMINATION: XR FLUOROSCOPY UPPER GI WITH AIR CLINICAL INFORMATION: Dysphagia COMPARISON: Barium swallow 02/2022 TECHNIQUE: Fluoroscopic air contrast upper GI examination was performed utilizing standard techniques with thin and thick barium and effervescent granules. Numerous spot images were obtained. FINDINGS: Diaphragmatic pleural plaques incidentally noted. Heavy coronary calcifications evident. Retrievable IVC filter noted in the infrarenal IVC. Lateral cine images of the oropharynx and hypopharynx demonstrate mildly delayed swallow mechanism with slightly suboptimal epiglottic inversion and soft palate elevation. There is excessive pooling of contrast in the vallecula and pyriform sinuses. There is laryngeal penetration with thick barium to the level of the true vocal cords. This remained in the laryngeal ventricle without subglottic aspiration identified. No nasopharyngeal reflux present. Hypopharyngeal structures appear without evidence of mass or diverticulum. There was no significant cricopharyngeal achalasia. Dual and single contrast images of the esophagus demonstrate normal caliber, contour, and mucosal pattern. No evidence of stricture, mass, or ulcerations identified. There is to and fro motion of the barium column with associated nonpropulsive tertiary contractions noted throughout the esophagus. There is mild narrowing at the GE junction which is most likely secondary to achalasia. A short segment benign stricture is not excluded. No evidence of hiatus hernia identified. No significant gastroesophageal reflux was seen during the course of the examination and on reflux views. Dual contrast and single contrast images of the stomach demonstrated a normal contour. Gastric rugal folds appear mildly thickened. Several subtle foci of contrast pooling in the body and antrum suggesting superficial apthous type mucosal ulcerations. No definite surrounding edema. Findings overall suggest gastritis. No masses are seen. Contrast freely passed into the gastric antrum and duodenal bulb without delay. Single and air-contrast images of the duodenal bulb demonstrate no abnormality. The duodenal sweep has a normal appearance, course, and mucosal fold appearance. There is a large second segment diverticulum present, and several smaller third and fourth segment diverticula. The imaged proximal jejunum has a normal fold pattern and caliber. FLUOROSCOPY TIME: 4 minutes 50 seconds Number of Spot Images: 8 Number of Cine: 11 DOSE AREA PRODUCT: 2285 uGy-m2 (microgray-meter squared) FL/FL upper GI w Ba Swallow IMPRESSION: 1. Excessive pooling of contrast in the vallecula and piriform sinuses. 2. Consistent laryngeal penetration of thick barium to level the true vocal cords. No definite subglottic aspiration was seen. 3. To and fro motion of the barium column associated with nonpropulsive tertiary contractions consistent with significant esophageal dysmotility. 4. Moderate narrowing of the GE junction which most likely represents achalasia. Cannot exclude a benign short segment stricture. 5. Thickened gastric mucosal folds and gastric mucosal abnormalities which likely represent gastritis. 6. Several duodenal diverticulum. 7. Heavy coronary calcifications incidentally noted. Pleural and diaphragmatic calcified plaques present. This procedure was performed by Genaro Hughes PA-C, and supervised by Dr. Conley
== END 2023-11-14 09:44 | disposition home or self-care (01) ==
LOC: HO.XRAY 09:43
PROVIDERS: PCP Internal Medicine; Visit Provider Nurse Practitioner Family
DX: R13.10 Dysphagia, unspecified (principal)
CPT/HCPCS: 74240

== ENCOUNTER → 2023-11-14 09:45 | Outpatient (BNV) | payer MEDICARE, SELFPAY | PROVIDERS: PCP Internal Medicine; Visit Provider Physician Assistant Surgical | DX: R13.10 Dysphagia, unspecified (principal) | CPT/HCPCS: 74246 ==

== ENCOUNTER 2024-01-15 10:26 | Outpatient (REF) | payer MEDICARE, SELFPAY ==
--- NOTE | ~2024-01-15 | US_ITS ---
EXAMINATION: US VENOUS ULTRASOUND WITH DOPPLER LOWER EXTREMITY, BILATERAL CLINICAL INFORMATION: History of right leg DVT COMPARISON: Right leg DVT study 06/18/2023 and bilateral DVT study 05/16/2023 TECHNIQUE: Ultrasound of the deep veins is performed from the hip to the calf with compression sonography and color and pulse Doppler assessment in both the right and left leg. Spectral analysis with color-flow imaging is performed. FINDINGS: RIGHT: There is normal venous compression and respiratory variation and augmented flow. The visualized common femoral vein, superficial femoral vein, profunda femoral vein, popliteal vein (with the exception of the distal popliteal vein which demonstrates some mural thickening related to chronic DVT, unchanged from prior), and the trifurcation region shows no evidence of deep venous thrombosis. There is no significant popliteal fossa cyst. LEFT:Chronic appearing thrombus is present in the left common femoral vein, proximal femoral vein and proximal profunda femoris vein. The distal femoral vein and popliteal vein along with visualized segments of tibial veins are unremarkable. There is a 5.2 x 1.1 x 2.2 cm Leal's cyst in the popliteal fossa. US/US venous duplex LE BI IMPRESSION: 1. No evidence of acute deep venous thrombosis in the right lower extremity with some persistent chronic changes in the distal popliteal vein. 2. 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 3. Left-sided Leal's cyst. This critical result was delivered to Dr. Chinchilla by the cold header operator immediately after the exam and it was ascertained that the content and urgency of the report was understood at the time of direct communication.
== END 2024-01-15 10:27 | disposition home or self-care (01) ==
LOC: HO.US 10:26
PROVIDERS: PCP Internal Medicine; Visit Provider Internal Medicine
DX: I82.491 Acute embolism and thrombosis of other specified deep vein of right lower extremity (principal)
CPT/HCPCS: 93970; 93971

== ENCOUNTER 2024-02-13 12:18 | Outpatient (AMB) | payer MEDICARE, SELFPAY ==
[2024-02-13 12:29] VITALS: BP 130/86; PULSE 68; O2SAT 96; BMI 22.5
--- NOTE | 2024-02-13 12:29 | MHC.PC.OV ---
Vital Signs 02/13/24 12:29 Height 5 ft 10 in Weight 157 lb BMI 22.5 BP 130/86 Blood Pressure Location Lt brachial Position Sitting Pulse 68 Pulse Source Pulse Oximeter Pulse Oximetry (%) 96 Oxygen Delivery Method Room Air Intake Visit Reasons: NESHA, Cholesterol Allergies No Known Allergies Allergy (Mild, Verified 02/13/24 12:29) N/A Tobacco use date assessed: 10/28/23 Fall risk assessment: No Falls in past year Last assessed Fall Risk: 02/13/24 Dental Screening Dental Screen Date: 10/28/23 HPI NESHA, Cholesterol HPI Details 89 year old male with a hx of Prostate Cancer, hypercholesterol, depression hx of DVT last seen10/2023. US leg done 01/2024 No evidence of acute deep venous thrombosis in the right lower extremity with some persistent chronic changes in the distal popliteal vein. 2. 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 3. Left-sided Leal's cyst. 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 Ultrasound of the lower extremity requested revealing above results. Meanwhile due to dysphagia patient had an GI series as well as barium swallow in 11/26/2023 showing laryngeal penetration, significant esophageal dysmotility moderate narrowing of the GE junction achalasia question of stricture. [facility] Medical History (Updated 02/13/24 @ 12:45 by Bobbi Harris MD) Varicose veins of right lower extremity with inflammation Leg wound, right Decreased appetite Adult general medical exam Diarrhea Cellulitis Dysphagia Nausea Frequency of micturition Venous insufficiency COVID-19 virus infection Leukocytosis Normocytic anemia Hyponatremia Low sodium levels Hypercholesterolemia Prostate cancer Osteoarthritis, shoulder Surgical History History of radical prostatectomy Erectile dysfunction following urethral surgery Family History Father Diabetes Social History Household Members: Children Household Members Other:: daughter Housing: House Do you presently have visiting nurse or other home services: Yes ([facility]) Alcohol intake: never Patient Tobacco Use Status: Never used Tobacco e-Cigarette/Vaping Use: Never Used Second Hand Smoke Exposure: No Advance Directives Date on File: 08/24/21 service: No Current occupational status: retired 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 1. Little interest or pleasure in doing things: not at all 2. Feeling down, depressed, or hopeless: not at all 3. Trouble falling or staying asleep, or sleeping too much: not at all 4. Feeling tired or having little energy: not at all 5. Poor appetite or overeating: not at all 6. Feeling bad about yourself - or that you are a failure or have let yourself or your family down: not at all 7. Trouble concentrating on things, such as reading the newspaper or watching television: not at all 8. Moving or speaking so slowly that other people could have noticed. Or the opposite - being so fidgety or restless that you have been moving around a lot more than usual: not at all 9. Thoughts that you would be better off or of hurting yourself in some way: not at all Total score: 0 Depression Screening Interpretation: Positive Depression Screening Follow-up: Existing condition, In treatment and Change in Medication Depression Screening Done: Yes 38271 - PHQ-9 Billing: Yes Source: Developed by Drs. Warner Gandhi, Ava Machuca, Mt Calderon and colleagues, with an educational conrad from [employer]. Thrive Questionnaire Date Thrive assessed: 02/13/24 I am a: Patient What is your living situation today?: I have a steady place to live Within the past 12 months, did the food you bought not last and you didn't have the money to get more?: Never true Within the past 12 months, did you worry whether your food would run out before you got money to buy more?: Never true Do you have trouble paying for medicines?: No Do you have trouble getting transportation to medical appointments?: No Do you have trouble paying your heating and electricity bill?: No Do you have trouble taking care of your child, family member or friend?: No Do you have trouble with day-to-day activities such as bathing, preparing meals, shopping, managing finances, etc.?: No Are you currently unemployed and looking for a job?: No Are you interested in more education?: No Please select the resources that you would like help with: None Currently or been in a relationship where the following occur: no concerns reported THRIVE Score: 0 AUDIT C Alcohol Use Questionnaire (AUDIT-C) 1. How often do you have a drink containing alcohol?: Monthly or less 2. How many drinks containing alcohol do you have on a typical day when you are drinking?: 1 or 2 3. How often do you have six or more drinks on one occasion?: Never Total Score: 1 Score Reviewed/Action Taken: No NESHA-7 AMB Questionnaire NESHA-7 Date NESHA - 7 assessed: 10/28/23 Source: Developed by Drs. Warner Gandhi, Ava Machuca, Mt Calderon and colleagues, with an educational conrad from [employer]. Physical exam (Primary Care) Vital Signs: Last Vital Signs Pulse 68 02/13/24 12:29 BP 130/86 02/13/24 12:29 Pulse Ox 96 02/13/24 12:29 Oxygen Delivery Method Room Air 02/13/24 12:29 BMI result Body Mass Index 22.5 Tobacco/Smoking Status: Tobacco use Status Tobacco use date assessed 10/28/23 02/13/24 12:37 Patient Tobacco Use Status Never used Tobacco 02/13/24 12:37 e-Cigarette/Vaping Use Never Used 02/13/24 12:37 PHQ-9: PHQ-9 Score PHQ-9: Total score 0 02/13/24 12:37 Depression Screening Interpretation: Positive Depression Screening Follow-up: Existing condition, In treatment and Change in Medication Thrive Assessment: Date of Thrive Assessment Date Thrive assessed 02/13/24 02/13/24 12:37 Currently or been in a relationship where the following occur: no concerns reported Const General: alert; No acute distress Eyes Conjunctivae: conjunctivae normal Resp Auscultation: clear to auscultation bilaterally Cardio Rate: regular rate Rhythm: regular rhythm GI Inspection: Yes normal to inspection Extrem General: Yes normal to inspection and No edema Assessment and Plan Assessment & Plan (1) Achalasia: Comment: 01/26/2024 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 Chaudhary AMS 800 urinary control system Code(s): R32 - Unspecified urinary incontinence Plan: Patient continues to follow-up with urology placed on Gemtessa and tolterodine (3) DVT (deep venous thrombosis): Comment: 2022 with IVC filter, 01/2024 No evidence of acute deep venous thrombosis in the right lower extremity with some persistent chronic changes in the distal popliteal vein. 2. 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 3. Left-sided Leal's cyst. Code(s): I82.409 - Acute embolism and thrombosis of unspecified deep veins of unspecified lower extremity Qualifiers: DVT location: lower extremity Affected thrombotic vein of extremity: popliteal Chronicity: acute Laterality: right Qualified Code(s): I82.431 - Acute embolism and thrombosis of right popliteal vein Plan: Patient is being followed up by hematology oncology does have the IVC filter (4) Anemia: Code(s): D64.9 - Anemia, unspecified Qualifiers: Anemia type: unspecified type Qualified Code(s): D64.9 - Anemia, unspecified Plan: Continuing to monitor (5) Prostate cancer: Comment: 2000 radical prostatectomy adjuvant radiotherapy for elevated PSA 2008 Code(s): C61 - Malignant neoplasm of prostate Plan: Patient follows up with urology (6) Hypercholesterolemia: Code(s): E78.00 - Pure hypercholesterolemia, unspecified Plan: Avoid fried foods, chicken skin, eggs, butter margarine, pastries and meat. Be it pork or beef they have a lot of cholesterol 05/28/2023 last blood work (7) Recurrent major depression: Comment: has good support. Code(s): F33.9 - Major depressive disorder, recurrent, unspecified Qualifiers: Active/Remission status: remission status unspecified Qualified Code(s): F33.9 - Major depressive disorder, recurrent, unspecified Plan: On sertraline 25 mg once a day Orders: Orders Complete Blood Count Auto Diff Today E78.00 - Pure hypercholesterolemia, unspecified B Type Natriuretic Peptide Today E78.00 - Pure hypercholesterolemia, unspecified Vitamin B12 and Folate Today E78.00 - Pure hypercholesterolemia, unspecified Comprehensive Met. Panel Today E78.00 - Pure hypercholesterolemia, unspecified Free T4 (Free Thyroxine) Today E78.00 - Pure hypercholesterolemia, unspecified Thyroid Stimulating Hormone Today E78.00 - Pure hypercholesterolemia, unspecified Ferritin Today E78.00 - Pure hypercholesterolemia, unspecified IRON PROFILE Today E78.00 - Pure hypercholesterolemia, unspecified Prostate Specific Antigen Scr Today C61 - Malignant neoplasm of prostate Lipid Panel Today C61 - Malignant neoplasm of prostate, E78.00 - Pure hypercholesterolemia, unspecified Coding Level of Care Code Est Pt Level 4 (31826) Diagnoses Achalasia K22.0 Urinary incontinence R32 Acute deep vein thrombosis (DVT) of popliteal vein of right lower extremity I82.431 DVT location: lower extremity Affected thrombotic vein of extremity: popliteal Chronicity: acute Laterality: right Anemia, unspecified type D64.9 Anemia type: unspecified type Prostate cancer C61 Hypercholesterolemia E78.00 Recurrent major depressive disorder, remission status unspecified F33.9 Active/Remission status: remission status unspecified
== END 2024-02-13 14:27 | disposition home or self-care (01) ==
PROVIDERS: PCP Internal Medicine; Visit Provider Internal Medicine
DX: I82.431 Acute embolism and thrombosis of right popliteal vein (principal); C61 Malignant neoplasm of prostate; F33.9 Major depressive disorder, recurrent, unspecified; K22.0 Achalasia of cardia; R32 Unspecified urinary incontinence; D64.9 Anemia, unspecified; E78.00 Pure hypercholesterolemia, unspecified
CPT/HCPCS: 99214

== ENCOUNTER 2024-07-12 15:03 | Outpatient (AMB) | payer MEDICARE, SELFPAY ==
--- NOTE | 2024-07-12 15:06 | MHC.OFFWIV ---
Intake Vital Signs 07/12/24 15:07 Height 5 ft 10 in Weight 157 lb BMI 22.5 BP 110/62 Blood Pressure Location Rt brachial Position Sitting Pulse 66 Pulse Source Pulse Oximeter Temp 97.9 F Temp Source Oral Pulse Oximetry (%) 97 Oxygen Delivery Method Room Air Intake Visit Reasons: EP Stye on LT eye Patient Tobacco Use Status: Never used Tobacco Allergies No Known Allergies Allergy (Mild, Verified 07/12/24 15:07) N/A Do you need a note to return to daycare/school/sports/work: No HPI EP Stye on LT eye HPI Details This note is constructed using voice recognition software. While every effort has been made to ensure accuracy, reeling and tubing machine operator errors may have been included. The patient is a 89 year old male who presents to the clinic today with left eye lid stye. He notes that he initially had a stye in the right eye, and then it seemed to travel to the left eye. Tried an [id number] stye in the eye medication which did not seem to help. He reports that he is doing warm compresses which seemed to help alleviate symptoms. He denies any change in vision, any pain in the eye, or any difficulty moving the eye. [facility] Medical History Varicose veins of right lower extremity with inflammation Leg wound, right Decreased appetite Adult general medical exam Diarrhea Cellulitis Dysphagia Nausea Frequency of micturition Venous insufficiency COVID-19 virus infection Leukocytosis Normocytic anemia Hyponatremia Low sodium levels Hypercholesterolemia Prostate cancer Osteoarthritis, shoulder Surgical History History of radical prostatectomy Erectile dysfunction following urethral surgery Family History Father Diabetes Social History Household Members: Children Household Members Other:: daughter Housing: House Do you presently have visiting nurse or other home services: Yes ([facility]) Alcohol intake: never Patient Tobacco Use Status: Never used Tobacco e-Cigarette/Vaping Use: Never Used Second Hand Smoke Exposure: No Advance Directives Date on File: 08/24/21 service: No Current occupational status: retired 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, 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 [employer] Cognitive needs: Yes (cane) Hearing needs: No Vision needs: Yes Review of Systems Const All systems reviewed & are unremarkable except as noted in HPI and below Physical Exam Vital Signs: Last Vital Signs Temp 97.9 F 07/12/24 15:07 Pulse 66 07/12/24 15:07 BP 110/62 07/12/24 15:07 Pulse Ox 97 07/12/24 15:07 Oxygen Delivery Method Room Air 07/12/24 15:07 BMI result Body Mass Index 22.5 Const General: cooperative, healthy appearing, comfortable, no acute distress and well developed Orientation/consciousness: patient oriented x3 Limitations: no limitations Eyes Alignment and Position: alignment normal Eyelids: Yes eyelid abnormality (Hordeolum to left lower lid) Pupils: Equal, round and reactive pupils present EOM: EOMs intact bilaterally Direct Ophthalmoscopy: normal light reflex Resp Effort & Inspection: normal respiratory effort and able to speak in complete sentences Skin Other: Slight erythema surrounding raised hordeolum to left lower eyelid. Neuro General: patient oriented x3 Cranial nerves: Yes Equal, round and reactive pupils present Assessment & Plan Assessment & Plan (1) Hordeolum: Code(s): H00.019 - Hordeolum externum unspecified eye, unspecified eyelid Qualifiers: Hordeolum type: externum Laterality: left Eyelid: lower Qualified Code(s): H00.015 - Hordeolum externum left lower eyelid Plan: Antibacterial ointment prescribed for symptomatic management. Advised patient to monitor for worsening or failure to resolve, especially in setting of erythema going into the lower lid as he may need to be treated for secondary infection should it progress at worsened. Plan See above for full details and plan. Medications: New erythromycin 0.5 inches ophthalmic (eye) TID 3.5 grams 0RF 7 days Coding Level of Care Code Est Pt Level 3 (55141) Diagnoses Hordeolum externum of left lower eyelid H00.015 Hordeolum type: externum Laterality: left Eyelid: lower
[2024-07-12 15:07] VITALS: BP 110/62; PULSE 66; TEMP 36.6; O2SAT 97; BMI 22.5
== END 2024-07-12 15:37 | disposition home or self-care (01) ==
PROVIDERS: PCP Internal Medicine; Visit Provider Registered Nurse
DX: H00.015 Hordeolum externum left lower eyelid (principal)

== ENCOUNTER → 2024-07-12 15:03 | Outpatient (BNVA) | payer MEDICARE, SELFPAY | PROVIDERS: PCP Internal Medicine; Visit Provider Registered Nurse | DX: H00.015 Hordeolum externum left lower eyelid (principal) | CPT/HCPCS: 99212 ==

== ENCOUNTER 2024-07-22 09:47 | Outpatient (AMB) | payer MEDICARE, SELFPAY ==
--- NOTE | 2024-07-22 09:52 | MHC.OFFWIV ---
Intake Vital Signs 07/22/24 09:53 Height 5 ft 10 in Weight 157 lb BMI 22.5 BP 110/72 Blood Pressure Location Rt brachial Position Sitting Pulse 65 Pulse Source Pulse Oximeter Pulse Oximetry (%) 97 Oxygen Delivery Method Room Air Intake Visit Reasons: EP-Stye (requesting for kristina) Intake Note: pt is here for eye stye Patient Tobacco Use Status: Never used Tobacco Allergies No Known Allergies Allergy (Mild, Verified 07/22/24 09:54) N/A Do you need a note to return to daycare/school/sports/work: No HPI EP-Stye (requesting for kristina) HPI Details This note is constructed using voice recognition software. While every effort has been made to ensure accuracy, biometric screener errors may have been included. The patient is a 89 year old male who presents to the clinic today with left eye lid irritation. He was last seen in clinic 07/12/2024 for the same and was treated for hordeolum. He notes that he initially had a stye in the right eye, and then it seemed to travel to the left eye and over the past several days, additional have formed. Prior to the last visit he tried an [id number] stye in the eye medication which did not seem to help. He has continued to do warm compresses which no longer alleviate symptoms. He denies any change in vision, any pain in the eye, or any difficulty moving the eye. He reports the additional spots are tender to touch. He denies any burning sensation or discharge. [facility] Medical History Varicose veins of right lower extremity with inflammation Leg wound, right Decreased appetite Adult general medical exam Diarrhea Cellulitis Dysphagia Nausea Frequency of micturition Venous insufficiency COVID-19 virus infection Leukocytosis Normocytic anemia Hyponatremia Low sodium levels Hypercholesterolemia Prostate cancer Osteoarthritis, shoulder Surgical History History of radical prostatectomy Erectile dysfunction following urethral surgery Family History Father Diabetes Social History Household Members: Children Household Members Other:: daughter Housing: House Do you presently have visiting nurse or other home services: Yes ([facility]) Alcohol intake: never Patient Tobacco Use Status: Never used Tobacco e-Cigarette/Vaping Use: Never Used Second Hand Smoke Exposure: No Advance Directives Date on File: 08/24/21 service: No Current occupational status: retired 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, 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 [employer] Cognitive needs: Yes (cane) Hearing needs: No Vision needs: Yes Review of Systems Const All systems reviewed & are unremarkable except as noted in HPI and below Physical Exam Vital Signs: Last Vital Signs Pulse 65 07/22/24 09:53 BP 110/72 07/22/24 09:53 Pulse Ox 97 07/22/24 09:53 Oxygen Delivery Method Room Air 07/22/24 09:53 BMI result Body Mass Index 22.5 Const General: cooperative, healthy appearing, comfortable, no acute distress and well developed Orientation/consciousness: patient oriented x3 Limitations: no limitations HEENT Head: Yes normal to inspection Ears: hearing grossly normal bilaterally General nose exam: Normal external nose present Face and sinus: Yes normal facial exam Eyes Other: Left lower lid with crusted yellow papule and surrounding errythema with erythema inside the lower left lid. No discharge or palpable wamrth. Sclerae: sclerae normal Pupils: Equal, round and reactive pupils present EOM: EOMs intact bilaterally Neck Neck: Yes normal visual inspection and Yes full ROM Resp Effort & Inspection: normal respiratory effort and able to speak in complete sentences Neuro General: patient oriented x3 Cranial nerves: Yes Equal, round and reactive pupils present Assessment & Plan Assessment & Plan (1) Eye lesion: Code(s): H57.9 - Unspecified disorder of eye and adnexa Plan: Etiology unclear. Given lack of vesicular appearance unlikely to be shingles. Additionally it is reassuring that he has no pain or visual impairment. Given the erythema that is present both around the lesions, and traveling into the lid, we will treat this as a bacterial infection. He has failed to respond to local ointment, we will treat with systemic antibiotics. Additionally we obtained an appointment with Ophthalmology for tomorrow at 09:[address] Blount's office for evaluation, in the event that this may need additional intervention. Plan See above for full details and plan. Medications: New sulfamethoxazole-trimethoprim 800-160 mg 1 tab PO BID 5 days 10 tabs 0RF Coding Level of Care Code Est Pt Level 4 (15656) Diagnoses Eye lesion H57.9 Time Spent (min) 30
[2024-07-22 09:53] VITALS: BP 110/72; PULSE 65; O2SAT 97; BMI 22.5
== END 2024-07-22 11:39 | disposition home or self-care (01) ==
PROVIDERS: PCP Internal Medicine; Visit Provider Registered Nurse
DX: H57.9 Unspecified disorder of eye and adnexa (principal)

== ENCOUNTER → 2024-07-22 09:47 | Outpatient (BNVA) | payer MEDICARE, SELFPAY | PROVIDERS: PCP Internal Medicine; Visit Provider Registered Nurse | DX: R29.898 Other symptoms and signs involving the musculoskeletal system (principal); E78.00 Pure hypercholesterolemia, unspecified; H57.9 Unspecified disorder of eye and adnexa | CPT/HCPCS: 96127; 99212 ==

== ENCOUNTER 2024-07-22 13:47 | Outpatient (AMB) | payer MEDICARE, SELFPAY ==
--- NOTE | 2024-07-22 13:48 | MHC.PC.OV ---
Vital Signs 07/22/24 13:49 Height 5 ft 10 in Weight 161 lb BMI 23.1 BP 118/78 Blood Pressure Location Lt brachial Position Sitting Pulse 60 Pulse Source Pulse Oximeter Oxygen Delivery Method Room Air Intake Visit Reasons: range of motion and his arms/ Pt referral Allergies No Known Allergies Allergy (Mild, Verified 07/22/24 13:52) N/A Tobacco use date assessed: 10/28/23 Fall risk assessment: No Falls in past year Last assessed Fall Risk: 07/22/24 Dental Screening Dental Screen Date: 10/28/23 HPI range of motion and his arms/ Pt referral HPI Details 89-year-old male with past medical history of prostate cancer, hypercholesterolemia, depression, history of DVT last seen February 2024 coming in for acute problem. In review of the notes, patient was seen multiple times and walk-in clinic for eye lesions and started on oral antibiotics and scheduled for Ophthalmology appointment with eye doctor. Patient states he has been having difficulty with upper extremity weakness and limited range of motion. He has difficulty with putting on his coat as well as fasting his seatbelt due to weakness. He has been seeing [facility] for lower extremity weakness and has seen an improvement in his mobility and strength of the lower extremities but does still have gait instability. He has a history of cortisone injections in bilateral shoulders with [facility] and states the pain in the shoulders has improved however the stiffness has worsened. [facility] Medical History Varicose veins of right lower extremity with inflammation Leg wound, right Decreased appetite Adult general medical exam Diarrhea Cellulitis Dysphagia Nausea Frequency of micturition Venous insufficiency COVID-19 virus infection Leukocytosis Normocytic anemia Hyponatremia Low sodium levels Hypercholesterolemia Prostate cancer Osteoarthritis, shoulder Surgical History History of radical prostatectomy Erectile dysfunction following urethral surgery Family History Father Diabetes Social History Household Members: Children Household Members Other:: daughter Housing: House Do you presently have visiting nurse or other home services: Yes ([facility]) Alcohol intake: never Patient Tobacco Use Status: Never used Tobacco e-Cigarette/Vaping Use: Never Used Second Hand Smoke Exposure: No Advance Directives Date on File: 08/24/21 service: No Current occupational status: retired 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 1. Little interest or pleasure in doing things: not at all 2. Feeling down, depressed, or hopeless: not at all 3. Trouble falling or staying asleep, or sleeping too much: not at all 4. Feeling tired or having little energy: not at all 5. Poor appetite or overeating: not at all 6. Feeling bad about yourself - or that you are a failure or have let yourself or your family down: not at all 7. Trouble concentrating on things, such as reading the newspaper or watching television: not at all 8. Moving or speaking so slowly that other people could have noticed. Or the opposite - being so fidgety or restless that you have been moving around a lot more than usual: not at all 9. Thoughts that you would be better off or of hurting yourself in some way: not at all Total score: 0 Depression Screening Interpretation: Positive Depression Screening Follow-up: Existing condition, In treatment and Change in Medication Depression Screening Done: Yes 43424 - PHQ-9 Billing: Yes Source: Developed by Drs. Warner Gandhi, Mt Rosas and colleagues, with an educational conrad from [employer]. Thrive Questionnaire Date Thrive assessed: 02/13/24 AUDIT C Alcohol Use Questionnaire (AUDIT-C) 1. How often do you have a drink containing alcohol?: Monthly or less 2. How many drinks containing alcohol do you have on a typical day when you are drinking?: 1 or 2 3. How often do you have six or more drinks on one occasion?: Never Total Score: 1 Score Reviewed/Action Taken: No NESHA-7 AMB Questionnaire NESHA-7 Date NESHA - 7 assessed: 10/28/23 Source: Developed by Drs. Warner Gandhi, Ava Machuca, Mt Calderon and colleagues, with an educational conrad from [employer]. Review of Systems Const Denies body aches, Denies chills and Denies fever(s) Eyes Details: Rash on left lower eyelid ENT Reports no additional complaints Card Denies chest pain, Denies leg edema and Denies dyspnea Resp Denies dyspnea GI Reports no additional complaints Reports no additional complaints Musc Reports as per HPI Physical exam (Primary Care) Vital Signs: Last Vital Signs Pulse 60 07/22/24 13:49 BP 118/78 07/22/24 13:49 Oxygen Delivery Method Room Air 07/22/24 13:49 BMI result Body Mass Index 23.1 Tobacco/Smoking Status: Tobacco use Status Tobacco use date assessed 10/28/23 07/22/24 13:59 Patient Tobacco Use Status Never used Tobacco 07/22/24 13:59 e-Cigarette/Vaping Use Never Used 07/22/24 13:59 PHQ-9: PHQ-9 Score PHQ-9: Total score 0 07/22/24 13:59 Depression Screening Interpretation: Positive Depression Screening Follow-up: Existing condition, In treatment and Change in Medication Thrive Assessment: Date of Thrive Assessment Date Thrive assessed 02/13/24 07/22/24 13:59 Const General: cooperative, healthy appearing, comfortable and no acute distress Orientation/consciousness: patient oriented x3 HENMT Head: Yes normocephalic Ears: hearing grossly normal bilaterally General nose exam: Normal external nose present Eyes General: appearance normal, both eyes and all related structures Conjunctivae: conjunctivae normal Neck Neck: Yes full ROM and Yes no lymphadenopathy Resp Effort & Inspection: normal respiratory effort Auscultation: clear to auscultation bilaterally, no crackles, no rales, no rhonchi and no wheezes Cardio Rate: regular rate Rhythm: regular rhythm Skin General skin exam: no rashes or lesions noted Neuro General: patient oriented x3 Gait exam (Neuro): Normal gait present Extrem Other: Decreased range of motion of bilateral upper extremities General: Yes normal to inspection and No edema Psych Affect: normal affect Attitude: cooperative Insight: Good insight present (Psych) Judgement: Good judgement present (Psych) Coding Level of Care Code Est Pt Level 3 (61470) Diagnoses Leg weakness, bilateral R29.898 Hypercholesterolemia E78.00 Upper extremity weakness R29.898 Additional Codes PHQ-9 - 50742 - PHQ-9 Billing: Yes ([id number]) Assessment & Plan Assessment & Plan (1) Leg weakness, bilateral: Code(s): R29.898 - Other symptoms and signs involving the musculoskeletal system Category: Medical Plan: Has been working with [facility] physical therapy and doing well states he has seen a big improvement on his mobility and has had last falls. Patient is still has difficulty with moving around and gait instability making some activities of daily living difficult. He is looking for a ELECTROPLATER referral and referral was placed today. (2) Hypercholesterolemia: Code(s): E78.00 - Pure hypercholesterolemia, unspecified Category: Medical Plan: Avoid foods that are high in cholesterol such as red meat, fried foods, eggs and baked goods. Triglyceride goal of less than 150 and LDL goal of less than 100. Reminded patient about blood work and we will reschedule cholesterol follow up. (3) Upper extremity weakness: Code(s): R29.898 - Other symptoms and signs involving the musculoskeletal system Category: Medical Plan: Patient having upper extremity weakness and limited range of motion left greater than right. Patient states he has difficulty with putting on his coat and other activities. Referral placed for physical therapy at this time. Plan This note was constructed using voice recognition software. While every effort has been made to ensure accuracy and house mover, still areas may have been included sometimes these areas may affect the content or meeting of the given symptoms. Total time spent caring for the patient today was 20 minutes. This includes time spent before the visit reviewing the chart, time spent during the visit, and time spent after the visit and documentation. Orders: Orders PT Evaluation and Treatment Today R29.898 - Other symptoms and signs involving the musculoskeletal system
[2024-07-22 13:49] VITALS: BP 118/78; PULSE 60; BMI 23.1
== END 2024-07-22 14:34 | disposition home or self-care (01) ==
PROVIDERS: PCP Internal Medicine
DX: R29.898 Other symptoms and signs involving the musculoskeletal system (principal); E78.00 Pure hypercholesterolemia, unspecified

== ENCOUNTER 2024-08-03 13:00 | Outpatient (RCR) | payer MEDICARE, SELFPAY ==
--- NOTE | 2024-06-16 14:44 | MHC.PT.EP ---
[facility] [place] Office [place] Office [place] Office [address] Kathryn Rizo [address] [phone] F: [phone] F: [phone] F: [phone] F: [phone] Physical Therapy Plan of Care Date of Evaluation: 06/16/24 Date of Surgery: n/a Diagnosis: B leg weakness Assessment: Patient is a 89 year old male presenting to PT with complaints of B leg weakness. Pt reports onset of pain began about 1 year ago due to a couple hospitalizations for different things. He presents today with impairments in balance, LE strength, fall risk, gait mechanics. Pt's current occupation is retired, with baseline physical activities including ADLs, ambulating, stair negotiation. 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 Clinical presentation today is most consistent with signs and sx associated with B leg weakness and pt will benefit from skilled PT 2 week x 4 weeks to address the following problems and impairments noted upon evaluation: balance, LE strength, fall risk, gait mechanics. These problems limit the patient with the following functional activities: ambulating, ADLs, stair negotiation. The prescribed treatment plan of care is medically necessary. Co-morbidities of hx CVA were identified and taken into considerations of plan of care. Pt was educated on HEP, role of PT, prognosis, POC. Frequency and Duration: The patient will be seen 2 x week x 4 weeks Short Term Goals: Pt will demonstrate ability to stand with NBOS with good posture and no sway in 2 weeks. Pt will demonstrate improved LE MMT strength by 1/3 grade in 2 weeks. Safety Director Goals: Pt will demonstrate improved LEFI score by 9 points in 4 weeks for improved functional mobility. Pt will demonstrate improved DGI by 3 points in 4 weeks for reduced risk of falls. Pt will demonstrate improved 30 sec chair stand test by 2 STS in 4 weeks for improved LE endurance. Pt will demonstrate improved TUG score by 3 sec in 4 weeks for improved reduced risk of falls. Treatment Plan: Modalities to reduce pain, spasms and effusion. Manual therapy to restore motion and function. Therapeutic exercise to improve strength and flexibility. Neuromuscular re-education for posture and balance. Therapeutic activities to return to functional activities of daily living. Electronically signed by: Marisela Ellison, PT, DPT, ATC Please sign and return to therapist. Thank you for your referral.
--- NOTE | 2024-08-03 13:46 | MHC.PT.DC ---
[facility] [place] Office [place] Office [place] Office [address]ryn [address] 140 [facility] [phone] F: [phone] F: [phone] F: [phone] F: [phone] Physical Therapy Discharge Report Diagnosis: B leg weakness Date of Surgery: n/a Date of Evaluation: 06/16/24 Date of Discharge: 08/03/24 Treatments to Date: 12 Cancellations to Date: 0 No Shows to Date: 1 Discharge Status: Improved Function Independent with HEP Patient Elected to Stop Discharge Summary: 08/03/2024: Pt has made improvements in his balance and gait since start of care. He is most challenged with tandem stance and when walking without his cane. He is demonstrating improved TUG scores since start of care and improved endurance overall. He is happy with his progress and at this time would like to be treated for his shoulders. I feel his request is reasonable and therefore will d/c him from this POC so that he can schedule an evaluation for his shoulders. Electronically signed by: Marisela Ellison, PT, DPT, ATC Please sign and return to therapist. Thank you for your referral.
== END 2024-08-03 13:47 | disposition home or self-care (01) ==
LOC: HO.PTCHIC 13:00
PROVIDERS: PCP Internal Medicine; Visit Provider Internal Medicine
DX: R29.898 Other symptoms and signs involving the musculoskeletal system (principal)
CPT/HCPCS: 97110; 97162

== ENCOUNTER 2024-09-14 07:57 | Outpatient (REF) | payer MEDICARE, SELFPAY ==
--- OUTSIDE RECORDS SUMMARY | 2024-09-14 08:00 | XMS_ITS | Continuity of Care Document ---
Author Organization [facility], [facility] 3rd floor Address [address] [place] [address] Care Team Providers Care Personnel Worker Name Role Phone SHERLYN CRUZ Primary Care Provider Assessment Encounter Date Assessment Date Assessment LastModified by Organization Details LastModified Time 08/25/2024 08/25/2024 I am seeing the patient today under the supervision of Dr Parks who was available but who did not see the patient. tatianna Not available 08/25/2024 08:45:15 Plan of Treatment Reminders Order Date Submit Date Provider Last Modified By Organization Details Last Modified Time Details Appointments RECHECK 15 2024 09:00A M Андрей Blackburn PA-C Not available Not available Not available Lab None recorded . Referral None recorded . Procedures None recorded . Surgeries None recorded . Imaging None recorded . Medication Orders None recorded . Patient TargetsNo targets recorded. Patient InstructionsNo instructions recorded. Reason for Referral None Reported. Problems Name Problem SNOMED Code Status Onset Date Resolution Date Notes Provider Name and Address Organization Details Recorded Time Bilateral osteoarthri tis of knees 1263063441403 07 Active 2023 Андрей Blackburn PA-C [address], [place], [address], [facility] 4 07:28:24 Impingement syndrome of left shoulder region 5130184197861 04 Active 2023 Андрей Blackburn PA-C [address], [place], [address], [facility] 4 07:50:40 Impingement syndrome of right shoulder region 8187682753579 02 Active 2023 Андрей Blackburn PA-C [address], [place], [address], [facility] 4 07:50:40 Problem Notes None recorded. Procedures Surgical History Date Name Laterality Status Provider Name and Address Organization Details Recorded Time 4 JZShoulder INJ Jean completed Андрей Blackburn PA-C [address], [place], [address], [facility] 08/25/2024 08:45:08 4 JZShoulder INJ Jean completed Андрей Blackburn PA-C [address], [place], [address], [facility] 05/26/2024 08:54:18 4 JZShoulder INJ Jean completed Андрей Blackburn PA-C [address] [facility] [address], [place], [address], [facility] 02/12/2024 07:50:39 Imaging Results None recorded. Procedure Notes None recorded. Medical Equipment None Reported. Allergies No known drug allergies Medications Name Sig Start Date Stop Date Status Note LastModified by Organization Details LastModified Time amoxicillin 500 mg capsule TAKE 1 CAPSULE BY MOUTH THREE TIMES DAILY active Not Available Not Available No t Available tolterodine ER 4 mg capsule,ext ended release 24 hr TAKE 1 CAPSULE BY MOUTH DAILY active Not Available Not Available No t Available cyproheptad ine 4 mg tablet TAKE 1 TABLET BY MOUTH AT BEDTIME active Not Available Not Available No t Available cephalexin 500 mg capsule TAKE 1 CAPSULE BY MOUTH THREE TIMES A DAY active Not Available Not Available No t Available paroxetine 20 mg tablet TAKE 1 TABLET BY MOUTH AT BEDTIME active Not Available Not Available No t Available erythromyci n 5 mg/gram (0.5 %) eye ointment active Not Available Not Available Not Available Citrucel 500 mg tablet TAKE 1 TABLET BY MOUTH DAILY WITH FULL GLASS OF WATER active Not Available Not Available No t Available cefuroxime axetil 500 mg tablet TAKE 1 TABLET BY MOUTH TWICE DAILY active Not Available Not Available No t Available polyethylen e glycol 3350 17 gram/dose oral powder MIX 17 GRAMS IN LIQUID EVERY DAY AND DRINK active Not Available Not Available No t Available albuterol sulfate HFA 90 mcg/actuati on aerosol inhaler INHALE 2 PUFFS BY MOUTH EVERY 4 TO 6 HOURS NEEDED FOR SHORTNESS OF BREATH OR WHEEZING active Not Available Not Available No t Available sertraline 50 mg tablet TAKE 1 TABLET BY MOUTH DAILY active Not Available Not Available No t Available neomycin 3.5 mg/g-polymy anthony B 10,000 unit/g-dexa meth 0.1 % eye oint AFTER HOT PACK AND MASSAGE APPLY 1/4 INCH RIBBON TO LEFT LOWER EYELID 3 TO 4 TIMES DAILY active Not Available Not Available No t Available rosuvastati n 40 mg tablet TAKE 1 TABLET BY MOUTH DAILY active Not Available Not Available No t Available Eliquis 5 mg tablet TAKE 1 TABLET BY MOUTH TWICE DAILY active Not Available Not Available No t Available Culturelle 15 billion cell sprinkle capsule TAKE 1 CAPSULE BY MOUTH EVERY DAY active Not Available Not Available No t Available Ure-Na 15 gram oral powder packet DISSOLVE 1 PACKET IN WATER AND DRINK ONCE DAILY DIRECTED active Not Available Not Available No t Available Eliquis DVT-PE Treatment 30-Day Starter 5 mg (74 tablets) in dose pack TAKE 1 TABLET BY MOUTH TWICE A DAY DIRECTED active Not Available Not Available No t Available Paxlovid 300 mg (150 mg x 2)-100 mg tablets in a dose pack TK 2 NIRMATREL VIR TS AND 1 RITONAVIR T TOGETHER PO TWICE DAILY X5 DAYS 05/26 completed Not Available Not Available Not Available Vitals Date Recorded Body height Body mass index (BMI) Body weight Provider Name and Address Organization Details Last Updated DateTime 08/25/2024 177.8 cm 21.5 kg/m2 97622.86 g Kermit Dickson [place] - [facility] 08/25/2024 08:33:29 Social History None recorded. Functional Status None recorded. Mental Status None recorded. Family History Nothing Reported. Medical History No medical history recorded. Past Encounters Encounter ID Performer Location Encounter Start Date Encounter Closed Date Diagnosis/Indication Diagnosis SNOMED-CT Code Diagnosis ICD10 Code Diagnosis Note [id number] [facility] 3rd floor [address] [place] [address] 08/25/2024 08:24:24 08/25/2024 08:45:32 Impingement syndrome of right shoulder region [id number] 46300 M75.41 Impingemen t syndrome of left shoulder region 2884443205 13367 M75.42 Health Concerns Section Related Observation LastModified by Organization Detai ls LastModified Time None Recorded Concern Status LastModified by Organization Details LastModified Time None Recorded Payers Encounter Date Sequence Insurance Name Policy Number Policy Hogan Covered Member ID Hogan Member ID Guarantor Name 08/25/2024 2 [place] [id number] Sukhwinder Maynard [id number] Sukhwinder Maynard 08/25/2024 1 [place] [employer] Sukhwinder Maynard [id number] Sukhwinder Maynard
--- OUTSIDE RECORDS SUMMARY | 2024-09-14 08:00 | XMS_ITS | Clinical Summary ---
Author Organization Unknown Care Team Providers Care Polisher Brass Name Role Phone ANTHONY TROY, SHERLYN Unavailable Unavailable JAYDON DASILVA OT Unavailable Unavailmilagro RABAGO RN, DIANE Unavailable Unavailable SCARLETT LINARES, ZULAY Unavailable Unavailable Payers Payer Name Policy Type Policy Number Effective Date Expira tion Date MEDICARE - [facility] [id number] [facility] [id number] Problems Condition Name Condition Details Condition Category Status Onset Date Resolution Date Last Treatment Date Treating Clinician Comments HEART FAILURE, UNSPECIFIED Active 2022-09 00:00: 00 PURE HYPERCHOLEST EROLEMIA, UNSPECIFIED Active 2022-09 00:00: 00 PERIPHERAL VASCULAR DISEASE, UNSPECIFIED Active 2022-09 00:00: 00 VENOUS INSUFFICIENC Y (CHRONIC) (PERIPHERAL) Active 2022-09 00:00: 00 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 Active 2022-09 00:00: 00 ANEMIA, UNSPECIFIED Active 2022-09 00:00: 00 MAJOR DEPRESSIVE DISORDER, RECURRENT, UNSPECIFIED Active 2022-09 00:00: 00 BENIGN PROSTATIC HYPERPLASIA WITHOUT LOWER URINRY TRACT SYMP Active 2022-09 00:00: 00 DYSPHAGIA, UNSPECIFIED Active 2022-09 00:00: 00 INGROWING NAIL Active 2022-09 00:00: 00 PRIMARY OSTEOARTHRIT IS, UNSPECIFIED SHOULDER Active 2022-09 00:00: 00 PERSONAL HISTORY OF MALIGNANT NEOPLASM OF PROSTATE Active 2022-09 00:00: 00 PRSNL HX OF TIA (TIA), AND CEREB INFRC W/O RESID DEFICITS Active 2022-09 00:00: 00 PERSONAL HISTORY OF OTHER VENOUS THROMBOSIS AND EMBOLISM Active 2022-09 00:00: 00 PERSONAL HISTORY OF COVID-19 Active 2022-09 00:00: 00 PERSONAL HISTORY OF URINARY (TRACT) INFECTIONS Active 2022-09 00:00: 00 [facility] (CURRENT) USE OF NON-STEROIDA L NON-INFLAM (NSAID) Active 2022-09 00:00: 00 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 Ordering Clinician Indication Dosage Frequency Signature (SIG) Comments Components cephalexin 500 mg capsule 02-21 00:00: 00 02-26 00:00 :00 No [id number] Per instruc tions Per instructio ns (route: oral) Med Classific ation: Anti-Infe ctive Agents rosuvastati n 40 mg tablet 02-05 00:00: 00 Yes [id number] Unavailable 1 tablet DAILY 1 tablet DAILY (route: oral) Med Classific ation: Cardiovas cular Therapy Agents ascorbic acid (vitamin C) 1,000 mg capsule 02-25 00:00: 00 Yes [id number] 1 capsule DAILY 1 capsule DAILY (route: oral) Med Classific ation: Electroly te Balance-N utritiona l Products aspirin 81 mg tablet,verito yed release 02-25 00:00: 00 Yes [id number] 1 tablet DAILY 1 tablet DAILY (route: oral) Med Classific ation: Hematolog ical Agents cefuroxime axetil 500 mg tablet 02-25 00:00: 00 07-13 00:00 :00 No [id number] 1 tablet 2 TIMES DAILY 1 tablet 2 TIMES DAILY (route: oral) Med Classific ation: Anti-Infe ctive Agents cholecalcif rafy (vitamin D3) 25 mcg (1,000 unit) capsule 02-25 00:00: 00 Yes [id number] 1 capsule DAILY 1 capsule DAILY (route: oral) Med Classific ation: Electroly te Balance-N utritiona l Products cyanocobala min (vit B-12) 1,000 mcg tablet 02-25 00:00: 00 Yes [id number] 1 tablet DAILY 1 tablet DAILY (route: oral) Med Classific ation: Electroly te Balance-N utritiona l Products meloxicam 15 mg tablet 02-25 00:00: 00 Yes [id number] 1 tablet DAILY 1 tablet DAILY (route: oral) Med Classific ation: Analgesic , Anti-infl ammatory or Antipyret ic oxybutynin chloride ER 15 mg tablet,exte nded release 24 hr 02-25 00:00: 00 02-28 23:59 :00 No [id number] 1 tablet DAILY 1 tablet DAILY (route: oral) Med Classific ation: Genitouri nary Therapy psyllium husk 0.4 gram capsule 02-25 00:00: 00 07-13 00:00 :00 No [id number] 2 capsule BEDTIME 2 capsule BEDTIME (route: oral) Med Classific ation: Gastroint estinal Therapy Agents sertraline 25 mg tablet 02-25 00:00: 00 Yes [id number] 1 tablet DAILY 1 tablet DAILY (route: oral) Med Classific ation: Central Nervous System Agents cephalexin 500 mg capsule 03-10 00:00: 00 03-20 23:59 :00 No [id number] 1 capsule 2 TIMES DAILY 1 capsule 2 TIMES DAILY (route: oral) Med Classific ation: Anti-Infe ctive Agents Culturelle 10 billion cell capsule 03-13 00:00: 00 03-20 23:59 :00 No [id number] 1 capsule DAILY 1 capsule DAILY (route: oral) Med Classific ation: Gastroint estinal Therapy Agents Ure-Na 15 gram oral powder packet 20 00:00: 00 07-13 00:00 :00 No [id number] 1 powder in packet DAILY 1 powder in packet DAILY (route: oral) Med Classific ation: Cardiovas cular Therapy Agents cyproheptad ine 4 mg tablet 05-16 00:00: 00 Yes [id number] 1 tablet BEDTIME 1 tablet BEDTIME (route: oral) Med Classific ation: Respirato ry Therapy Agents Eliquis 5 mg tablet 05-16 00:00: 00 06-16 23:59 :00 No [id number] 1 tablet 2 TIMES DAILY 1 tablet 2 TIMES DAILY (route: oral) Med Classific ation: Hematolog ical Agents paroxetine 20 mg tablet 2022-09 00:00: 00 07-13 00:00 :00 No [id number] Per instruc tions Per instructio ns (route: oral) Med Classific ation: Central Nervous System Agents albuterol sulfate HFA 90 mcg/actuati on aerosol inhaler 2022-09 00:00: 00 Yes [id number] 2 puff 4 TIMES DAILY 2 puff 4 TIMES DAILY (route: inhalation ) Med Classific ation: Respirato ry Therapy Agents Culturelle 10 billion cell capsule 2022-09 00:00: 00 Yes [id number] 1 capsule DAILY 1 capsule DAILY (route: oral) Med Classific ation: Gastroint estinal Therapy Agents Miralax 17 gram/dose oral powder 2022-09 00:00: 00 Yes [id number] 17 gram DAILY 17 gram DAILY (route: oral) Med Classific ation: Gastroint estinal Therapy Agents Gemtesa 75 mg tablet 10-17 00:00: 00 Yes [id number] 1 tablet DAILY 1 tablet DAILY (route: oral) Med Classific ation: Genitouri nary Therapy Immunizations Ordered Immunization Name Filled Immunization Name Date Status Comments Refusal Reason INFLUENZA, TIV (INACTIVATED) 2023-04-21 00:00:00 SHINGLES, TIV (INACTIVATED) 2021-07-23 00:00:00 PNEUMOCOCCAL (PPV), PPV 2020-07-17 00:00:00 Vital Signs Vital Name Observation Time Observation Value Commen ts Temperature 2023-11-06 09:16:00.000 97.6 [degF] Temperature 2023-10-28 08:22:00.000 97 [degF] Temperature 2023-10-20 11:31:00.000 98.3 [degF] Temperature 2023-10-14 15:49:00.000 98 [degF] Temperature 2023-10-06 20:12:00.000 98.3 [degF] Temperature 2023-09-29 10:04:00.000 97.9 [degF] Temperature 2023-09-22 10:22:00.000 97.2 [degF] Temperature 2023-09-16 09:14:00.000 98.6 [degF] Pulse 2023-11-06 09:16:00.000 76 /min Pulse 2023-10-28 08:22:00.000 68 /min Pulse 2023-10-20 11:31:00.000 76 /min Pulse 2023-10-14 15:49:00.000 70 /min Pulse 2023-10-06 20:12:00.000 68 /min Pulse 2023-09-29 10:04:00.000 62 /min Pulse 2023-09-22 10:22:00.000 76 /min Pulse 2023-09-16 09:14:00.000 63 /min O2 Saturation (%) 2023-11-06 09:16:00.000 96 % O2 Saturation (%) 2023-10-28 08:22:00.000 97 % O2 Saturation (%) 2023-10-20 11:31:00.000 97 % O2 Saturation (%) 2023-10-14 15:49:00.000 98 % O2 Saturation (%) 2023-10-06 20:13:00.000 98 % O2 Saturation (%) 2023-09-29 10:04:00.000 97 % O2 Saturation (%) 2023-09-22 10:22:00.000 96 % O2 Saturation (%) 2023-09-16 09:14:00.000 96 % Respirations 2023-11-06 09:16:00.000 20 /min Respirations 2023-10-28 08:22:00.000 18 /min Respirations 2023-10-20 11:31:00.000 20 /min Respirations 2023-10-14 15:49:00.000 18 /min Respirations 2023-10-06 20:12:00.000 20 /min Respirations 2023-09-29 10:04:00.000 18 /min Respirations 2023-09-22 10:22:00.000 18 /min Respirations 2023-09-16 09:14:00.000 20 /min Weight (lbs) 2023-11-06 09:16:00.000 147 [lb_av] Weight (lbs) 2023-10-28 08:22:00.000 146 [lb_av] Weight (lbs) 2023-10-20 11:31:00.000 148 [lb_av] Weight (lbs) 2023-10-14 15:49:00.000 145 [lb_av] Weight (lbs) 2023-10-06 20:13:00.000 144 [lb_av] Weight (lbs) 2023-09-29 10:04:00.000 145 [lb_av] Weight (lbs) 2023-09-22 10:22:00.000 144 [lb_av] Weight (lbs) 2023-09-16 09:14:00.000 143 [lb_av] Systolic Blood Pressure 2023-11-06 09:16:00.000 104 mm [Hg] Systolic Blood Pressure 2023-10-28 08:22:00.000 122 mm [Hg] Systolic Blood Pressure 2023-10-20 11:31:00.000 110 mm [Hg] Systolic Blood Pressure 2023-10-14 15:49:00.000 124 mm [Hg] Systolic Blood Pressure 2023-10-06 20:12:00.000 132 mm [Hg] Systolic Blood Pressure 2023-09-29 10:04:00.000 110 mm [Hg] Systolic Blood Pressure 2023-09-22 10:22:00.000 124 mm [Hg] Systolic Blood Pressure 2023-09-16 09:14:00.000 118 mm [Hg] Diastolic Blood Pressure 2023-11-06 09:16:00.000 76 mm [Hg] Diastolic Blood Pressure 2023-10-28 08:22:00.000 64 mm [Hg] Diastolic Blood Pressure 2023-10-20 11:31:00.000 64 mm [Hg] Diastolic Blood Pressure 2023-10-14 15:49:00.000 66 mm [Hg] Diastolic Blood Pressure 2023-10-06 20:12:00.000 76 mm [Hg] Diastolic Blood Pressure 2023-09-29 10:04:00.000 62 mm [Hg] Diastolic Blood Pressure 2023-09-22 10:22:00.000 68 mm [Hg] Diastolic Blood Pressure 2023-09-16 09:14:00.000 64 mm [Hg] Plan of Treatment Planned Activity Planned Date Details Comments Future Scheduled Test SKILLED NU RSE TO EVALUATE PATIENT, IDENTIFY PRIMARY AND CO-MORBID CONDITIONS CODED PER CODING GUIDELINES, AND DEVELOP PATIENT SPECIFIC PLAN OF CARE THAT INCLUDES PATIENT GOAL FOR HOME HEALTH. [code = SKILLED NURSE TO EVALUATE PATIENT, IDENTIFY PRIMARY AND CO-MORBID CONDITIONS CODED PER CODING GUIDELINES, AND DEVELOP PATIENT SPECIFIC PLAN OF CARE THAT INCLUDES PATIENT GOAL FOR HOME HEALTH.] Future Scheduled Test SKILLED NU RSE TO PROVIDE TEACHING/REINFORCEMENT RELATED TO URINARY INCONTINENCE. [code = SKILLED NURSE TO PROVIDE TEACHING/REINFORCEMENT RELATED TO URINARY INCONTINENCE.] Future Scheduled Test SKILLED NU RSE TO REVIEW PATIENT MEDICATIONS. INSTRUCT PATIENT/CAREGIVER ON MONITORING OF EFFECTIVENESS, ADVERSE DRUG REACTIONS, SIDE EFFECTS OF ALL MEDICATIONS (PRESCRIPTION/-OTC), AND HOW AND WHEN TO REPORT PROBLEMS. [code = SKILLED NURSE TO REVIEW PATIENT MEDICATIONS. INSTRUCT PATIENT/CAREGIVER ON MONITORING OF EFFECTIVENESS, ADVERSE DRUG REACTIONS, SIDE EFFECTS OF ALL MEDICATIONS (PRESCRIPTION/-OTC), AND HOW AND WHEN TO REPORT PROBLEMS.] Future Scheduled Test SKILLED NU RSE TO ASSESS ANXIETY AND PROVIDE ASSISTANCE TO PATIENT FOR UNDERSTANDING AND MANAGEMENT OF FEELINGS. [code = SKILLED NURSE TO ASSESS ANXIETY AND PROVIDE ASSISTANCE TO PATIENT FOR UNDERSTANDING AND MANAGEMENT OF FEELINGS.] Future Scheduled Test SKILLED NU RSE FOR O/A, TEACHING AND MANAGEMENT OF BPH FOR EARLY IDENTIFICATION OF EXACERBATION OF DISEASE PROCESS [code = SKILLED NURSE FOR O/A, TEACHING AND MANAGEMENT OF BPH FOR EARLY IDENTIFICATION OF EXACERBATION OF DISEASE PROCESS] Future Scheduled Test SKILLED NU RSE FOR O/A OF MUSCULOSKELETAL STATUS AND TEACHING ON MEASURES TO MANAGE AND TO MAINTAIN SAFETY WITH ACTIVITY WITH OA [code = SKILLED NURSE FOR O/A OF MUSCULOSKELETAL STATUS AND TEACHING ON MEASURES TO MANAGE AND TO MAINTAIN SAFETY WITH ACTIVITY WITH OA] Future Scheduled Test SKILLED NU RSE FOR O/A AND SKILLED TEACHING IN MANAGEMENT OF PVD CIRCULATORY/VASCULAR DISEASE. [code = SKILLED NURSE FOR O/A AND SKILLED TEACHING IN MANAGEMENT OF PVD CIRCULATORY/VASCULAR DISEASE.] Future Scheduled Test SKILLED NU RSE FOR O/A, TEACHING AND SELF-MANAGEMENT RELATED TO HEART FAILURE. INSTRUCT PATIENT/CAREGIVER ON SIGNS AND SYMPTOMS OF EXACERBATION TO REPORT. WEIGHT TO BE OBTAINED DAILY AND WEIGHT GAIN OF 2 LBS OVERNIGHT OR 5 LBS IN 1 WEEK TO BE REPORTED TO PHYSICIAN. IF UNABLE TO WEIGH PATIENT, SKILLED NURSE TO OBTAIN MEASUREMENT OF L CALF IN CM AT EACH VISIT AND REPORT AN INCREASE OF 1 CM TO PHYSICIAN. [code = SKILLED NURSE FOR O/A, TEACHING AND SELF-MANAGEMENT RELATED TO HEART FAILURE. INSTRUCT PATIENT/CAREGIVER ON SIGNS AND SYMPTOMS OF EXACERBATION TO REPORT. WEIGHT TO BE OBTAINED DAILY AND WEIGHT GAIN OF 2 LBS OVERNIGHT OR 5 LBS IN 1 WEEK TO BE REPORTED TO PHYSICIAN. IF UNABLE TO WEIGH PATIENT, SKILLED NURSE TO OBTAIN MEASUREMENT OF L CALF IN CM AT EACH VISIT AND REPORT AN INCREASE OF 1 CM TO PHYSICIAN.] Future Scheduled Test SKILLED NU RSE FOR O/A AND SKILLED TEACHING RELATED TO SIGNS AND SYMPTOMS AND MANAGEMENT OF ANEMIA. [code = SKILLED NURSE FOR O/A AND SKILLED TEACHING RELATED TO SIGNS AND SYMPTOMS AND MANAGEMENT OF ANEMIA.] Future Scheduled Test PATIENT SALAZAR S A RISK OF HOSPITALIZATION AND ED USE. SKILLED NURSE TO ESTABLISH SUPPORT MEASURES TO MINIMIZE RISK OF HOSPITALIZATION AND ED USE, AND INSTRUCT PATIENT/CAREGIVER ON METHODS TO REDUCE AVOIDABLE HOSPITALIZATION AND ED USE. [code = PATIENT HAS A RISK OF HOSPITALIZATION AND ED USE. SKILLED NURSE TO ESTABLISH SUPPORT MEASURES TO MINIMIZE RISK OF HOSPITALIZATION AND ED USE, AND INSTRUCT PATIENT/CAREGIVER ON METHODS TO REDUCE AVOIDABLE HOSPITALIZATION AND ED USE.] Future Scheduled Test SKILLED NU RSE TO PROVIDE INSTRUCTION TO PATIENT/CAREGIVER RELATED TO DISCHARGE PLANNING. [code = SKILLED NURSE TO PROVIDE INSTRUCTION TO PATIENT/CAREGIVER RELATED TO DISCHARGE PLANNING.] Future Scheduled Test SKILLED NU RSE TO PERFORM HOME SAFETY AND FALL ASSESSMENT AND PROVIDE INSTRUCTION TO IMPLEMENT HOME SAFETY AND FALL PREVENTION STRATEGIES. [code = SKILLED NURSE TO PERFORM HOME SAFETY AND FALL ASSESSMENT AND PROVIDE INSTRUCTION TO IMPLEMENT HOME SAFETY AND FALL PREVENTION STRATEGIES.] Future Scheduled Test SKILLED NU RSE FOR OBSERVATION AND ASSESSMENT OF PATIENTS PAIN LEVEL AND EFFECTIVENESS OF PAIN MANAGEMENT REGIMEN. SKILLED NURSE TO INSTRUCT PATIENT/CAREGIVER REGARDING PHARMACOLOGIC AND NON-PHARMACOLOGIC PAIN CONTROL MEASURES. SKILLED NURSE TO REPORT TO PHYSICIAN IF PAIN IS UNCONTROLLED WITH CURRENT PAIN MANAGEMENT REGIMEN. [code = SKILLED NURSE FOR OBSERVATION AND ASSESSMENT OF PATIENTS PAIN LEVEL AND EFFECTIVENESS OF PAIN MANAGEMENT REGIMEN. SKILLED NURSE TO INSTRUCT PATIENT/CAREGIVER REGARDING PHARMACOLOGIC AND NON-PHARMACOLOGIC PAIN CONTROL MEASURES. SKILLED NURSE TO REPORT TO PHYSICIAN IF PAIN IS UNCONTROLLED WITH CURRENT PAIN MANAGEMENT REGIMEN.] Future Scheduled Test SKILLED NU RSE TO ASSESS PATIENT'S SKIN INTEGRITY AND INSTRUCT PATIENT/CAREGIVER ON MEASURES TO PREVENT PRESSURE ULCERS. [code = SKILLED NURSE TO ASSESS PATIENT'S SKIN INTEGRITY AND INSTRUCT PATIENT/CAREGIVER ON MEASURES TO PREVENT PRESSURE ULCERS.] Future Scheduled Test SKILLED NU RSE TO PROVIDE ASSESSMENT AND TEACHING/REINFORCEMENT OF MANAGEMENT OF DEPRESSION INCLUDING DISEASE PROCESS, MEDICATION MANAGEMENT, COPING SKILLS AND IDENTIFY CHANGES ASSOCIATED WITH DEPRESSIVE DISORDERS FOR EARLY INTERVENTION. [code = SKILLED NURSE TO PROVIDE ASSESSMENT AND TEACHING/REINFORCEMENT OF MANAGEMENT OF DEPRESSION INCLUDING DISEASE PROCESS, MEDICATION MANAGEMENT, COPING SKILLS AND IDENTIFY CHANGES ASSOCIATED WITH DEPRESSIVE DISORDERS FOR EARLY INTERVENTION.] Future Scheduled Test SKILLED NU RSE FOR O/A OF ENDOCRINE STATUS TO IDENTIFY CHANGES ASSOCIATED WITH EXACERBATION OF SIADH FOR EARLY INTERVENTION OF COMPLICATIONS. [code = SKILLED NURSE FOR O/A OF ENDOCRINE STATUS TO IDENTIFY CHANGES ASSOCIATED WITH EXACERBATION OF SIADH FOR EARLY INTERVENTION OF COMPLICATIONS.] Future Scheduled Test SKILLED NU RSE FOR O/A, TEACHING RELATED TO DYSPHAGIA FOR EARLY IDENTIFICATION OF EXACERBATION OF DISEASE PROCESS. [code = SKILLED NURSE FOR O/A, TEACHING RELATED TO DYSPHAGIA FOR EARLY IDENTIFICATION OF EXACERBATION OF DISEASE PROCESS.] Future Scheduled Test SKILLED NU RSE FOR O/A AND SKILLED TEACHING RELATED TO SIGNS AND SYMPTOMS OF INFECTION AND INFECTION CONTROL MEASURES. [code = SKILLED NURSE FOR O/A AND SKILLED TEACHING RELATED TO SIGNS AND SYMPTOMS OF INFECTION AND INFECTION CONTROL MEASURES.] Goal 2023-11-06 Patient Goal - TO FEEL STRON MARIA FERNANDA Goal 2023-09-09 Patient Goal - TO FEEL STRON MARIA FERNANDA Goal Provider Goal - A PLAN OF CARE WILL BE ESTABLISHED THAT MEETS PATIENT'S DETENTION NEEDS AND INCLUDES PATIENT GOAL FOR HOME HEALTH. Goal Provider Goal - PATIENT / CAREGIVER WILL VERBALIZE UNDERSTANDING OF EFFECTS OF URINARY INCONTINENCE BY THE END OF THE CERTIFICATION PERIOD. Goal Provider Goal - PATIENT/CAREGIVER WILL VERBALIZE UNDERSTANDING OF EDUCATION PROVIDED ON MEDICATIONS BY THE END OF THE CERTIFICATION PERIOD. Goal Provider Goal - SYMPTOMS OF ANXIETY ARE IDENTIFIED AND INTERVENTIONS INITIATED TO ENABLE PATIENT TO UNDERSTAND AND MANAGE FEELINGS THROUGHOUT EPISODE. Goal Provider Goal - PATIENT/CAREGIVER WILL VERBALIZE UNDERSTANDING OF BPH GENITOURINARY DISEASE PROCESS, AND EXACERBATIONS OF GENITOURINARY DISEASE WILL BE PROMPTLY IDENTIFIED FOR EARLY INTERVENTION THROUGHOUT THE CERTIFICATION PERIOD. Goal Provider Goal - PATIENT/CAREGIVER WILL VERBALIZE/DEMONSTRATE ABILITY TO MANAGE MUSCULOSKELETAL DISEASE WHILE MAINTAINING SAFETY THROUGHOUT THE EPISODE. Goal Provider Goal - PATIENT/CAREGIVER WILL VERBALIZE/DEMONSTRATE THE ABILITY TO MANAGE PVD CIRCULATORY DISEASE PROCESS AND EXACERBATIONS WILL BE IDENTIFIED FOR EARLY INTERVENTION THROUGHOUT THE CERTIFICATION PERIOD. Goal Provider Goal - PATIENT/CAREGIVER WILL VERBALIZE/DEMONSTRATE KNOWLEDGE AND MANAGEMENT OF HEART FAILURE DISEASE PROCESS BY END OF EPISODE. Goal Provider Goal - PATIENT/CARGIVER WILL VERBALIZE UNDERSTANDING OF ANEMIA INCLUDING SIGNS AND SYMPTOMS, MANAGEMENT OF COMPLICATIONS, AND PRESCRIBED TREATMENT REGIMEN BY END OF EPISODE. Goal Provider Goal - PATIENT WILL HAVE SUPPORT MEASURES ESTABLISHED TO PREVENT HOSPITALIZATION AND ED USE AND PATIENT/CAREGIVER WILL VERBALIZE/DEMONSTRATE METHODS TO REDUCE AVOIDABLE HOSPITALIZATION AND ED USE BY END OF EPISODE. Goal Provider Goal - PATIENT/CAREGIVER WILL VERBALIZE UNDERSTANDING OF DISCHARGE PLANNING INSTRUCTIONS BY DATE OF DISCHARGE. Goal Provider Goal - PATIENT/CAREGIVER WILL VERBALIZE/DEMONSTRATE EFFECTIVE HOME SAFETY AND FALL PREVENTION STRATEGIES THROUGHOUT CERTIFICATION PERIOD. Goal Provider Goal - PATIENT/CAREGIVER WILL DEMONSTRATE UNDERSTANDING OF PHARMACOLOGIC AND NONPHARMACOLOGIC PAIN CONTROL MEASURES AND PATIENT WILL HAVE IMPROVEMENT IN PAIN INTERFERING WITH ACTIVITY EVIDENCED BY PAIN CONTROLLED AT LEVEL OF 7 OR LESS BY END OF CERTIFICATION PERIOD. Goal Provider Goal - PATIENT/CAREGIVER WILL VERBALIZE UNDERSTANDING OF PRESSURE ULCER PREVENTION BY END OF THE EPISODE. Goal Provider Goal - PATIENT/CAREGIVER WILL VERBALIZE/DEMONSTRATE UNDERSTANDING OF THE MANAGEMENT OF DEPRESSION THROUGHOUT THE CERTIFICATION PERIOD AND SYMPTOMS ARE IDENTIFIED AND MANAGED TO MAINTAIN PATIENT SAFETY IN THE HOME. Goal Provider Goal - PATIENT/CAREGIVER WILL VERBALIZE SIGNS AND SYMPTOMS OF EXACERBATION OF SIADH TO REPORT TO NURSE/PHYSICIAN THROUGHOUT THE CERTIFICATION PERIOD. Goal Provider Goal - EXACERBATIONS OF GASTROINTESTINAL DISEASE WILL BE PROMPTLY IDENTIFIED AND INTERVENTIONS IMPLEMENTED TO MINIMIZE RISKS TO PATIENT BY END OF EPISODE. Goal Provider Goal - PATIENT/CAREGIVER WILL VERBALIZE/DEMONSTRATE UNDERSTANDING OF S/S OF INFECTION AND INFECTION CONTROL MEASURES. SIGNS AND SYMPTOMS OF INFECTION WILL BE IDENTIFIED AND PHYSICIAN NOTIFIED FOR PROMPT INTERVENTION THROUGHOUT THE CERTIFICATION PERIOD. Reason for Visit INDEPENDENT IN THE HOME Encounters Start Date/Time End Date/Time Encounter Type Admission Type Attending [facility] Care [facility] Care Department Encounter ID Discharge Date Discharge Status Discharge Condition Discharge Reason Percent Goals Met 2023-07-13 00:00:00 2023-11-06 00:00:00 Outpatient RECERTIFIC MANASA RABAGO, DIANE [facility] [id number] 2023-11-06 00:00:00 DISCHARGE TO HOME OR SELF CARE INDEPENDEN T IN THE HOME GOALS MET ( ONLY) 100.00
[2024-09-14 09:56] LABS: MANUAL DIFF FLAG NO
[2024-09-14 10:09] LABS: Basophils Absolute Auto 0.1 X10*3/uL (0.0-0.2); Basophils Percent Auto 0.6 % (0-2); Eosinophils Absolute Auto 0.1 X10*3/uL (0.0-0.4); Eosinophils Percent Auto 1.4 % (0-4); Hematocrit 43.2 % (42.0-52.0); Hemoglobin 14.3 g/dl (14.0-18.0); Imm Gran Abs Auto 0.09 X10*3/uL (0.00-0.03); Imm Gran Pct Auto 0.9 % (0.0-0.4); Lymphocytes Absolute Auto 2.3 X10*3/uL (1.2-4.9); Mean Corpuscular HGB Conc 33.1 g/dl (31.0-36.0); Mean Corpuscular Hemoglobin 32.2 pg (27.0-33.0); Mean Corpuscular Volume 97.3 fL (80.0-98.0); Mean Platelet Volume 9.4 fL (9.4-12.4); Monocytes Absolute Auto 0.8 X10*3/uL (0.1-1.2); Monocytes Percent Auto 8.2 % (2-11); Neutrophils Absolute Auto 6.5 x10*3/uL (2.0-8.3); Neutrophils Percent Auto 65.9 % (45-73); Platelet Count 204 X10*3/uL (160-400); Red Blood Count 4.44 X10*6/uL (4.60-5.80); Red Cell Distribution Width 13.9 % (11.0-16.0); White Blood Count 9.8 X10*3/uL (4.8-10.8)
[2024-09-14 10:20] LABS: Alanine Aminotransferase 16 U/L (0-40); Albumin Level 3.6 g/dL (3.5-5.0); Alkaline Phosphatase 83 U/L (39-117); Anion Gap 10 (12-20); Aspartate Amino Transferase 22 U/L (5-37); Bilirubin Total 0.4 mg/dL (0.0-1.0); Blood Urea Nitrogen 15 mg/dL (9-16); Carbon Dioxide 29 mmol/L (22-29); Chloride 106 mmol/L (96-108); Cholesterol 213 mg/dL (<200); Estimated Glomerular Filt Rate > 60; Glucose Random 91 mg/dL (60-115); HDL Cholesterol 57 mg/dL (>40); Iron 96 mcg/dL (45-160); LDL Cholesterol Calculated 118 mg/dL (<100); Percent Iron Saturation 37 % (15-50); Potassium 4.2 mmol/L (3.3-5.1); Sodium 141 mmol/L (135-145); Total Iron Binding Capacity 257 mcg/dL (228-428); Total Protein 7.6 g/dL (6.5-8.0); Triglycerides 192 mg/dL (<150); Unsaturated Iron Binding 161 ug/dL
[2024-09-14 10:26] LABS: B Type Natriuretic Peptide < 10 pg/mL (<100)
[2024-09-14 10:43] LABS: Ferritin 184 ng/mL (20-250); Free T4 (Free Thyroxine) 1.03 ng/dL (0.71-1.85); Thyroid Stimulating Hormone 2.05 uIU/mL (0.32-4.0)
[2024-09-14 11:09] LABS: Folate 11.1 ng/mL (> or = 4.0); Prostate Specific Antigen Scr < 0.10 ng/mL (<0.05-4.0); Vitamin B12 > 2000 pg/mL (200-900)
== END 2024-09-14 07:58 | disposition home or self-care (01) ==
LOC: HO.HMGCLDS 07:57
PROVIDERS: PCP Internal Medicine; Visit Provider Internal Medicine
DX: E78.00 Pure hypercholesterolemia, unspecified (principal); C61 Malignant neoplasm of prostate; Z12.5 Encounter for screening for malignant neoplasm of prostate
CPT/HCPCS: 36415; 80053; 80061; 82607; 82728; 82746; 83540; 83880; 84153; 84439; 84443; 85025

== ENCOUNTER 2024-09-21 13:39 | Outpatient (AMB) | payer MEDICARE, SELFPAY ==
--- NOTE | 2024-09-21 13:56 | A.OFFPC_ITS ---
Vital Signs 09/21/24 13:58 09/21/24 14:26 Height 5 ft 10 in Weight 195 lb BMI 28.0 BP 140/80 H 136/80 Blood Pressure Location Lt brachial Lt brachial Position Sitting Sitting Pulse 67 Pulse Source Pulse Oximeter Temp 96.9 F Temp Source Skin Pulse Oximetry (%) 95 Oxygen Delivery Method Room Air Intake Visit Reasons: f/u HLD and NESHA Intake Note: Patient is here to follow up on HLD, NESHA. Health Researcher Required: No Radiology Specialist: Not Required per policy Accompanied by: Self / Same As Patient Allergies No Known Allergies Allergy (Mild, Verified 09/21/24 13:58) N/A Medication List - Last Reconciled 09/21/24 by Naila Mayers PA-C albuterol sulfate 90 mcg/actuation 2 inhalations inhalation Q4-6H PRN ascorbate calcium (vitamin C) 500 mg PO DAILY aspirin (Adult Low Dose Aspirin) 81 mg PO DAILY chair, wheel (Wheel chair) 16 inch with elevating leg rest (manual) cholecalciferol (vitamin D3) 25 mcg PO DAILY comp.stocking,knee,long,medium As directed cyproheptadine 4 mg PO BEDTIME Lactobacillus rhamnosus GG (Culturelle) 1 cap PO DAILY polyethylene glycol 3350 (Miralax) 17 grams PO DAILY rosuvastatin 40 mg PO DAILY sennosides (senna) 8.6 mg PO BEDTIME sertraline 25 mg PO DAILY tolterodine ER 4 mg PO DAILY Tobacco use date assessed: 09/21/24 Fall risk assessment: No Falls in past year Last assessed Fall Risk: 09/21/24 Dental Screening Dental Screen Date: 09/21/24 Did you have a dental visit in the last 12 months?: Yes Did you have a dental problem in the last 6 months where you did not have access to dental care?: No Was dental information given to patient?: Patient has dentist HPI f/u HLD and NESHA HPI Details 89-year-old male with past medical histo ry of prostate cancer, hyp ercholesterolemia, depression, history of DVT last seen July 2024 coming in for follow up. Patient tells us today he has a stye on the left lower eyelid saw Dr. Blount for it and was given antibiotic cream and advised to use warm compresses. He has seen an improvement since starting this. Several weeks ago he had pain in the right testicle that was brief and resolved spontaneously. He had additional episode the same day and has not had any recurrence. He has seen [facility] and is unsure if he brought this concern to their attention but he did have his drain checked and was not found to be responsible for the testicular pain. He continues to have upper extremity weakness and shoulder pain bilaterally he has been having cortisone injections every 3 months with [facility] and going to physical therapy. [facility] Medical History Varicose veins of right lower extremity with inflammation Leg wound, right Decreased appetite Adult general medical exam Diarrhea Cellulitis Dysphagia Nausea Frequency of micturition Venous insufficiency COVID-19 virus infection Leukocytosis Normocytic anemia Hyponatremia Low sodium levels Hypercholesterolemia Prostate cancer Osteoarthritis, shoulder Surgical History History of radical prostatectomy Erectile dysfunction following urethral surgery Family History Father Diabetes Social History Household Members: Children Household Members Other:: daughter Housing: House Do you presently have visiting nurse or other home services: Yes ([facility]) Alcohol intake: never Patient Tobacco Use Status: Never used Tobacco e-Cigarette/Vaping Use: Never Used Second Hand Smoke Exposure: No Advance Directives Date on File: 08/24/21 service: No Current occupational status: retired 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 1. Little interest or pleasure in doing things: not at all 2. Feeling down, depressed, or hopeless: not at all 3. Trouble falling or staying asleep, or sleeping too much: not at all 4. Feeling tired or having little energy: not at all 5. Poor appetite or overeating: not at all 6. Feeling bad about yourself - or that you are a failure or have let yourself or your family down: not at all 7. Trouble concentrating on things, such as reading the newspaper or watching television: not at all 8. Moving or speaking so slowly that other people could have noticed. Or the opposite - being so fidgety or restless that you have been moving around a lot more than usual: not at all 9. Thoughts that you would be better off or of hurting yourself in some way: not at all Total score: 0 Depression Screening Interpretation: Negative Depression Screening Done: Yes Source: Developed by Drs. Warner Gandhi, Ava Machuca, Mt Calderon and colleagues, with an educational conrad from [employer]. Thrive Questionnaire Date Thrive assessed: 09/21/24 I am a: Patient What is your living situation today?: I have a steady place to live Within the past 12 months, did the food you bought not last and you didn't have the money to get more?: Never true Within the past 12 months, did you worry whether your food would run out before you got money to buy more?: Never true Do you have trouble paying for medicines?: No Do you have trouble getting transportation to medical appointments?: No Do you have trouble paying your heating and electricity bill?: No Do you have trouble taking care of your child, family member or friend?: No Do you have trouble with day-to-day activities such as bathing, preparing meals, shopping, managing finances, etc.?: No Are you currently unemployed and looking for a job?: No Are you interested in more education?: No Please select the resources that you would like help with: None Currently or been in a relationship where the following occur: No concerns reported THRIVE Score: 0 AUDIT C Alcohol Use Questionnaire (AUDIT-C) 1. How often do you have a drink containing alcohol?: Monthly or less 2. How many drinks containing alcohol do you have on a typical day when you are drinking?: 1 or 2 3. How often do you have six or more drinks on one occasion?: Never Total Score: 1 NESHA-7 AMB Questionnaire NESHA-7 Date NESHA - 7 assessed: 09/21/24 Feeling nervous, anxious, or on edge: 0 = Not at all Not being able to stop or control worryin = Not at all Worrying too much about different things: 0 = Not at all Trouble relaxin = Not at all Being so restless that it is hard to sit still: 0 = Not at all Becoming easily annoyed or irritable: 0 = Not at all Feeling afraid as if something awful might happen: 0 = Not at all Total NESHA-7 score (0-4 normal; 5-9 mild; 10-14 moderate; 15-21 severe): 0 Source: Developed by Drs. Warner Gandhi, Ava Machuca, Mt Calderon and colleagues, with an educational conrad from [employer]. Review of Systems Const Denies body aches, Denies chills, Denies fever(s), Denies headache(s) and Denies poor appetite Eyes Reports no additional complaints ENT Denies dysphagia, Denies dizziness, Denies headache(s) and Denies odynophagia Card Denies chest pain, Denies syncope, Denies edema, Denies irregular heart rhythm, Denies lightheadedness and Denies dyspnea Resp Denies cough and Denies dyspnea GI Denies abdominal pain, Denies constipation, Denies dysphagia, Denies diarrhea, Denies nausea, Denies odynophagia and Denies vomiting Reports no additional complaints Musc Reports no additional complaints and Denies abnormal gait Skin/Breast Reports system reviewed and no additional complaints, except as documented Neuro Denies abnormal gait, Denies dizziness, Denies syncope and Denies headache(s) Psych Reports no additional complaints Physical exam (Primary Care) Vital Signs: Last Vital Signs Temp 96.9 F 09/21/24 13:58 Pulse 67 09/21/24 13:58 BP 136/80 09/21/24 14:26 Pulse Ox 95 09/21/24 13:58 Oxygen Delivery Method Room Air 09/21/24 13:58 BMI result Body Mass Index 28.0 Tobacco/Smoking Status: Tobacco use Status Tobacco use date assessed 09/21/24 09/21/24 14:05 Patient Tobacco Use Status Never used Tobacco 09/21/24 14:05 e-Cigarette/Vaping Use Never Used 09/21/24 14:05 PHQ-9: PHQ-9 Score PHQ-9: Total score 0 09/21/24 14:07 Depression Screening Interpretation: Negative Thrive Assessment: Date of Thrive Assessment Date Thrive assessed 09/21/24 09/21/24 14:05 Currently or been in a relationship where the following occur: No concerns reported Const General: cooperative, healthy appearing, comfortable and no acute distress Orientation/consciousness: patient oriented x3 HENMT Head: Yes normocephalic Ears: hearing grossly normal bilaterally General nose exam: Normal external nose present Eyes General: appearance normal, both eyes and all related structures Conjunctivae: conjunctivae normal Neck Neck: Yes full ROM and Yes no lymphadenopathy Resp Effort & Inspection: normal respiratory effort Auscultation: clear to auscultation bilaterally, no crackles, no rales, no rhonchi and no wheezes Cardio Rate: regular rate Rhythm: regular rhythm Skin General skin exam: no rashes or lesions noted Neuro General: patient oriented x3 Gait exam (Neuro): Normal gait present Extrem General: Yes normal to inspection, Yes full ROM and No edema Psych Affect: normal affect Attitude: cooperative Insight: Good insight present (Psych) Judgement: Good judgement present (Psych) Coding Level of Care Code Est Pt Level 4 (08836) Diagnoses Hypercholesterolemia E78.00 Prostate cancer C61 Recurrent major depressive disorder, remission status unspecified F33.9 Active/Remission status: remission status unspecified Upper extremity weakness R29.898 Testicular pain N50.819 Assessment & Plan Assessment & Plan (1) Hypercholesterolemia: Code(s): E78.00 - Pure hypercholesterolemia, unspecified Category: Medical Plan: Avoid foods that are high in cholesterol such as red meat, fried foods, eggs and baked goods. Triglyceride goal of less than 150 and LDL goal of less than 130. Cholesterol at goal on last labs (2) Prostate cancer: Comment: 2000 radical prostatectomy adjuvant radiotherapy for elevated PSA 2008 Code(s): C61 - Malignant neoplasm of prostate Category: Medical Plan: Continue to follow with [facility]. Recently had an appointment or they checked the drain and was advised to follow up yearly. (3) Recurrent major depression: Comment: has good support. Code(s): F33.9 - Major depressive disorder, recurrent, unspecified Category: Medical Qualifiers: Active/Remission status: remission status unspecified Qualified Code(s): F33.9 - Major depressive disorder, recurrent, unspecified Plan: On sertraline 25 mg feels this medication is beneficial for him. Denies any symptoms at this time (4) Upper extremity weakness: Code(s): R29.898 - Other symptoms and signs involving the musculoskeletal system Category: Medical Plan: Patient continues to have upper extremity weakness and bilateral shoulder pain. Continue to follow with [facility] for bilateral shoulder injections for osteoarthritis. Working with physical therapy and finds this beneficial. Continue with at-home exercises. Prescription sent for meloxicam 7.5 mg advised patient take this with plenty of food and water (5) Testicular pain: Code(s): N50.819 - Testicular pain, unspecified Category: Medical Plan: Patient complaining of 2 isolated episodes of testicular pain without recurrence. Advised patient to continue to monitor symptoms at this time. Denies urinary symptoms. If patient has recurrence we will plan to order ultrasound and follow up with [facility]. Plan This note was constructed using voice recognition software. While every effort has been made to ensure accuracy and tooth cutter spur, still areas may have been included sometimes these areas may affect the content or meeting of the given symptoms. Total time spent caring for the patient today was 20 minutes. This includes time spent before the visit reviewing the chart, time spent during the visit, and time spent after the visit and documentation. Medications: New meloxicam 7.5 mg PO DAILY 20 tabs 0RF
[2024-09-21 13:58] VITALS: BP 140/80; PULSE 67; TEMP 36.1; O2SAT 95; BMI 28.0
[2024-09-21 14:26] VITALS: BP 136/80
--- OUTSIDE RECORDS SUMMARY | 2024-09-21 15:57 | XMS_ITS | Continuity of Care Document ---
Author Organization [facility] 3rd floor Address [address] [place] [address] Care Team Providers Care Ambulatory Care Name Role Phone SHERLYN CRUZ Primary Care [...] Recorded Time Bilateral osteoarthri tis of knees 2879144096576 07 Active 2023 Андрей Blackburn PA-C [address], [place], [address], [facility] 4 07:28:24 Impingement syndrome of left shoulder region 8700050119525 04 Active 2023 Андрей Blackburn PA-C [address], [place], [address], [facility] 4 07:50:40 Impingement syndrome of right shoulder region 3877123182704 02 Active 2023 Андрей Blackburn PA-C [address], [place], [address], [facility] 4 07:50:40 Problem Notes None recorded. Procedures Surgical History Date Name Laterality Status Provider Name and Address Organization Details Recorded Time 4 JZShoulder INJ Jean completed Андрей Blackburn PA-C [address], [place], [address], [facility] 08/25/2024 08:45:08 4 JZShoulder INJ Jean completed Андрей Blackburn PA-C [address], [place], [address], [facility] 05/26/2024 08:54:18 4 JZShoulder INJ Jean completed Андрей Blackburn PA-C [address], [place], [address], [facility] 02/12/2024 07:50:39 Imaging Results None recorded. Procedure [...] Updated DateTime 08/25/2024 177.8 cm 21.5 kg/m2 25665.86 g Kermit Dickson [place] - [facility] 08/25/2024 08:33:29 Social History None recorded. Functional Status None recorded. Mental Status None recorded. Family History Nothing Reported. Medical History No medical history recorded. Past Encounters Encounter ID Performer Location Encounter Start Date Encounter Closed Date Diagnosis/Indication Diagnosis SNOMED-CT Code Diagnosis ICD10 Code Diagnosis Note [id number] [facility] [address] floor [address] [place] [address] 08/25/2024 08:24:24 09/15/2024 10:50:59 Impingement syndrome of right shoulder region 6590349940 38780 M75.41 Impingemen t syndrome of left shoulder region 6090211100 03414 M75.42 Health Concerns Section Related Observation LastModified by Organization Detai ls LastModified Time None Recorded Concern Status LastModified by Organization Details LastModified Time None Recorded Payers Encounter Date Sequence Insurance Name Policy Number Policy Hogan Covered Member ID Hogan Member ID Guarantor Name 08/25/2024 2 [place] [id number] Sukhwinder Maynard [id number] Sukhwinder Maynard 08/25/2024 1 [place] [employer] Sukhwinder Maynard [id number] Sukhwinder Maynard
--- OUTSIDE RECORDS SUMMARY | 2024-09-21 15:58 | XMS_ITS | Clinical Summary ---
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) USE OF NON-STEROIDA L NON-INFLAM (NSAID) Active 2022-09 00:00: 00 CORRECTION (CURRENT) USE OF ASPIRIN Active 2022-09 00:00: [...] 02-21 00:00: 00 02-26 00:00 :00 No [id number] Per instruc tions Per instructio ns (route: oral) Med Classific ation: Anti-Infe ctive Agents rosuvastati n 40 mg tablet 02-05 00:00: 00 Yes [id number] Unavailable 1 tablet DAILY 1 tablet DAILY (route: oral) Med Classific ation: Cardiovas cular Therapy Agents ascorbic acid (vitamin C) 1,000 mg capsule 02-25 00:00: 00 Yes [id number] 1 capsule DAILY 1 capsule DAILY (route: oral) Med Classific ation: Electroly te Balance-N utritiona l Products aspirin 81 mg tablet,verito yed release 02-25 00:00: 00 Yes [id number] 1 tablet DAILY 1 tablet DAILY (route: oral) Med Classific ation: Hematolog ical Agents cefuroxime axetil 500 mg tablet 02-25 00:00: 00 07-13 00:00 :00 No [id number] 1 tablet 2 TIMES DAILY 1 tablet 2 TIMES DAILY (route: oral) Med Classific ation: Anti-Infe ctive Agents cholecalcif rafy (vitamin D3) 25 mcg (1,000 unit) capsule 02-25 00:00: 00 Yes [id number] 1 capsule DAILY 1 capsule DAILY (route: oral) Med Classific ation: Electroly te Balance-N utritiona l Products cyanocobala min (vit B-12) 1,000 mcg tablet 02-25 00:00: 00 Yes [id number] 1 tablet DAILY 1 tablet DAILY (route: oral) Med Classific ation: Electroly te Balance-N utritiona l Products meloxicam 15 mg tablet 02-25 00:00: 00 Yes [id number] 1 tablet DAILY 1 tablet DAILY (route: oral) Med Classific ation: Analgesic , Anti-infl ammatory or Antipyret ic oxybutynin chloride ER 15 mg tablet,exte nded release 24 hr 02-25 00:00: 00 02-28 23:59 :00 No [id number] 1 tablet DAILY 1 tablet DAILY (route: oral) Med Classific ation: Genitouri nary Therapy psyllium husk 0.4 gram capsule 02-25 00:00: 00 07-13 00:00 :00 No [id number] 2 capsule BEDTIME 2 capsule BEDTIME (route: oral) Med Classific ation: Gastroint estinal Therapy Agents sertraline 25 mg tablet 02-25 00:00: 00 Yes [id number] 1 tablet DAILY 1 tablet DAILY (route: oral) Med Classific ation: Central Nervous System Agents cephalexin 500 mg capsule 03-10 00:00: 00 03-20 23:59 :00 No [id number] 1 capsule 2 TIMES DAILY 1 capsule 2 TIMES DAILY (route: oral) Med Classific ation: Anti-Infe ctive Agents Culturelle 10 billion cell capsule 03-13 00:00: 00 03-20 23:59 :00 No [id number] 1 capsule DAILY 1 capsule DAILY (route: oral) Med Classific ation: Gastroint estinal Therapy Agents Ure-Na 15 gram oral powder packet 20 00:00: 00 07-13 00:00 :00 No [id number] 1 powder in packet DAILY 1 powder in packet DAILY (route: oral) Med Classific ation: Cardiovas cular Therapy Agents cyproheptad ine 4 mg tablet 05-16 00:00: 00 Yes [id number] 1 tablet BEDTIME 1 tablet BEDTIME (route: oral) Med Classific ation: Respirato ry Therapy Agents Eliquis 5 mg tablet 05-16 00:00: 00 06-16 23:59 :00 No [id number] 1 tablet 2 TIMES DAILY 1 tablet 2 TIMES DAILY (route: oral) Med Classific ation: Hematolog ical Agents paroxetine 20 mg tablet 2022-09 00:00: 00 07-13 00:00 :00 No [id number] Per instruc tions Per instructio ns (route: oral) Med Classific ation: Central Nervous System Agents albuterol sulfate HFA 90 mcg/actuati on aerosol inhaler 2022-09 00:00: 00 Yes [id number] 2 puff 4 TIMES DAILY 2 puff 4 TIMES DAILY (route: inhalation ) Med Classific ation: Respirato ry Therapy Agents Culturelle 10 billion cell capsule 2022-09 00:00: 00 Yes [id number] 1 capsule DAILY 1 capsule DAILY (route: oral) Med Classific ation: Gastroint estinal Therapy Agents Miralax 17 gram/dose oral powder 2022-09 00:00: 00 Yes [id number] 17 gram DAILY 17 gram DAILY (route: oral) Med Classific ation: Gastroint estinal Therapy Agents Gemtesa 75 mg tablet 10-17 00:00: 00 Yes [id number] 1 tablet DAILY 1 tablet DAILY (route: [...] CARE WILL BE ESTABLISHED THAT MEETS PATIENT'S HALF-WAY NEEDS AND INCLUDES PATIENT GOAL FOR HOME [...] End Date/Time Encounter Type Admission Type Attending [facility] Care [facility] Care Department Encounter ID Discharge Date Discharge Status Discharge Condition Discharge Reason Percent Goals Met 2023-07-13 00:00:00 2023-11-06 00:00:00 Outpatient RECERTIFIC MANASA RABAGO, DIANE [facility] [id number] 2023-11-06 00:00:00 DISCHARGE TO HOME OR SELF CARE INDEPENDEN T IN THE HOME GOALS MET ( ONLY) 100.00
--- OUTSIDE RECORDS SUMMARY | 2024-09-21 15:58 | XMS_ITS | Clinical Summary ---
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 OF NON-STEROIDA L NON-INFLAM (NSAID) Active 2022-09 00:00: 00 LONGTERM (CURRENT) USE OF ASPIRIN Active 2022-09 00:00: [...] 02-21 00:00: 00 02-26 00:00 :00 No [id number] Per instruc tions Per instructio ns (route: oral) Med Classific ation: Anti-Infe ctive Agents rosuvastati n 40 mg tablet 02-05 00:00: 00 Yes [id number] Unavailable 1 tablet DAILY 1 tablet DAILY (route: oral) Med Classific ation: Cardiovas cular Therapy Agents ascorbic acid (vitamin C) 1,000 mg capsule 02-25 00:00: 00 Yes [id number] 1 capsule DAILY 1 capsule DAILY (route: oral) Med Classific ation: Electroly te Balance-N utritiona l Products aspirin 81 mg tablet,verito yed release 02-25 00:00: 00 Yes [id number] 1 tablet DAILY 1 tablet DAILY (route: oral) Med Classific ation: Hematolog ical Agents cefuroxime axetil 500 mg tablet 02-25 00:00: 00 07-13 00:00 :00 No [id number] 1 tablet 2 TIMES DAILY 1 tablet 2 TIMES DAILY (route: oral) Med Classific ation: Anti-Infe ctive Agents cholecalcif rafy (vitamin D3) 25 mcg (1,000 unit) capsule 02-25 00:00: 00 Yes [id number] 1 capsule DAILY 1 capsule DAILY (route: oral) Med Classific ation: Electroly te Balance-N utritiona l Products cyanocobala min (vit B-12) 1,000 mcg tablet 02-25 00:00: 00 Yes [id number] 1 tablet DAILY 1 tablet DAILY (route: oral) Med Classific ation: Electroly te Balance-N utritiona l Products meloxicam 15 mg tablet 02-25 00:00: 00 Yes [id number] 1 tablet DAILY 1 tablet DAILY (route: oral) Med Classific ation: Analgesic , Anti-infl ammatory or Antipyret ic oxybutynin chloride ER 15 mg tablet,exte nded release 24 hr 02-25 00:00: 00 02-28 23:59 :00 No [id number] 1 tablet DAILY 1 tablet DAILY (route: oral) Med Classific ation: Genitouri nary Therapy psyllium husk 0.4 gram capsule 02-25 00:00: 00 07-13 00:00 :00 No [id number] 2 capsule BEDTIME 2 capsule BEDTIME (route: oral) Med Classific ation: Gastroint estinal Therapy Agents sertraline 25 mg tablet 02-25 00:00: 00 Yes [id number] 1 tablet DAILY 1 tablet DAILY (route: oral) Med Classific ation: Central Nervous System Agents cephalexin 500 mg capsule 03-10 00:00: 00 03-20 23:59 :00 No [id number] 1 capsule 2 TIMES DAILY 1 capsule 2 TIMES DAILY (route: oral) Med Classific ation: Anti-Infe ctive Agents Culturelle 10 billion cell capsule 03-13 00:00: 00 03-20 23:59 :00 No [id number] 1 capsule DAILY 1 capsule DAILY (route: oral) Med Classific ation: Gastroint estinal Therapy Agents Ure-Na 15 gram oral powder packet 20 00:00: 00 07-13 00:00 :00 No [id number] 1 powder in packet DAILY 1 powder in packet DAILY (route: oral) Med Classific ation: Cardiovas cular Therapy Agents cyproheptad ine 4 mg tablet 05-16 00:00: 00 Yes [id number] 1 tablet BEDTIME 1 tablet BEDTIME (route: oral) Med Classific ation: Respirato ry Therapy Agents Eliquis 5 mg tablet 05-16 00:00: 00 06-16 23:59 :00 No [id number] 1 tablet 2 TIMES DAILY 1 tablet 2 TIMES DAILY (route: oral) Med Classific ation: Hematolog ical Agents paroxetine 20 mg tablet 2022-09 00:00: 00 07-13 00:00 :00 No [id number] Per instruc tions Per instructio ns (route: oral) Med Classific ation: Central Nervous System Agents albuterol sulfate HFA 90 mcg/actuati on aerosol inhaler 2022-09 00:00: 00 Yes [id number] 2 puff 4 TIMES DAILY 2 puff 4 TIMES DAILY (route: inhalation ) Med Classific ation: Respirato ry Therapy Agents Culturelle 10 billion cell capsule 2022-09 00:00: 00 Yes [id number] 1 capsule DAILY 1 capsule DAILY (route: oral) Med Classific ation: Gastroint estinal Therapy Agents Miralax 17 gram/dose oral powder 2022-09 00:00: 00 Yes [id number] 17 gram DAILY 17 gram DAILY (route: oral) Med Classific ation: Gastroint estinal Therapy Agents Gemtesa 75 mg tablet 10-17 00:00: 00 Yes [id number] 1 tablet DAILY 1 tablet DAILY (route: [...] OF INFECTION AND INFECTION CONTROL MEASURES.] Goal 2023-09-09 Patient Goal - TO FEEL STRON MARIA FERNANDA Goal 2023-11-06 Patient Goal - TO FEEL [...] End Date/Time Encounter Type Admission Type Attending [facility] Care Department Encounter ID Discharge Date Discharge Status Discharge Condition Discharge Reason Percent Goals Met 2023-07-13 00:00:00 2023-11-06 00:00:00 Outpatient RECERTIFIC MANASA RABAGO, DIANE [facility] [id number] 2023-11-06 00:00:00 DISCHARGE TO HOME OR SELF CARE INDEPENDEN T IN THE HOME GOALS MET ( ONLY) 100.00
== END 2024-09-21 14:44 | disposition home or self-care (01) ==
PROVIDERS: PCP Internal Medicine
DX: E78.00 Pure hypercholesterolemia, unspecified (principal); C61 Malignant neoplasm of prostate; F33.9 Major depressive disorder, recurrent, unspecified; R29.898 Other symptoms and signs involving the musculoskeletal system; N50.819 Testicular pain, unspecified

== ENCOUNTER → 2024-09-21 13:39 | Outpatient (BNVA) | payer MEDICARE, SELFPAY | PROVIDERS: PCP Internal Medicine | DX: E78.00 Pure hypercholesterolemia, unspecified (principal); C61 Malignant neoplasm of prostate; F33.9 Major depressive disorder, recurrent, unspecified; R29.898 Other symptoms and signs involving the musculoskeletal system; N50.819 Testicular pain, unspecified; Z86.718 Personal history of other venous thrombosis and embolism | CPT/HCPCS: 96127; 99212 ==

== ENCOUNTER 2024-09-24 09:00 | Outpatient (RCR) | payer MEDICARE, SELFPAY ==
--- NOTE | 2024-08-17 10:45 | MHC.PT.EP ---
[facility] [place] Office [place] [address] Kathryn Rizo [address] [phone] F: [phone] F: [phone] F: [phone] F: [phone] Physical Therapy Plan of Care Date of Evaluation: 08/17/24 Date of Surgery: n/a Diagnosis: B UE weakness Assessment: Patient is an 89 year old male presenting to PT with complaints of pain and weakness in B shoulders. Pt reports onset of pain began 6 months - 1 year ago due to insidious onset. He presents today with impairments in pain, ROM, strength, posture. Pt's current occupation is retired, with baseline physical activities including reaching, lifting, ADLs. Pt expresses detention goal of reducing pain, and is motivated to work towards this in PT. Clinical presentation today is most consistent with signs and sx associated with B shoulder pain and weakness and pt will benefit from skilled PT 2 week x 4 weeks to address the following problems and impairments noted upon evaluation: pain, ROM, strength, posture. These problems limit the patient with the following functional activities: reaching, lifting, ADLs. The prescribed treatment plan of care is medically necessary. Co-morbidities of hx of CVA, fall risk were identified and taken into considerations of plan of care. Pt was educated on HEP, role of PT, prognosis, POC. Frequency and Duration: The patient will be seen 2 x week x 4 weeks Short Term Goals: Pt will demonstrate improved shoulder ROM in available range to have min to no pain in 2 weeks. Pt will demonstrate improved B shoulder MMT strength by 1/3 grade in 2 weeks. Pt will demonstrate improved posture as evidence by min to no cues during session in 2 weeks. Water Quality Manager Goals: Pt will demonstrate improved SPADI score by 13 points in 4 weeks for improved functional mobility. Pt will demonstrate ability to put his jacket on with min to no pain in 4 weeks for improved tolerance to ADLs. Pt will demonstrate improved ability to reach with min to no pain in 4 weeks for improved ability to put his seat belt on. Treatment Plan: Modalities to reduce pain, spasms and effusion. Manual therapy to restore motion and function. Therapeutic exercise to improve strength and flexibility. Neuromuscular re-education for posture and balance. Therapeutic activities to return to functional activities of daily living. Electronically signed by: Marisela Ellison, PT, DPT, ATC Please sign and return to therapist. Thank you for your referral.
--- NOTE | 2024-09-24 09:46 | MHC.PT.DC ---
[facility] [place] [facility] [place] [facility] [address] Kathryn Rizo [address] [phone] F: [phone] F: [phone] F: [phone] F: [phone] Physical Therapy Discharge Report Diagnosis: B UE weakness Date of Surgery: n/a Date of Evaluation: 08/17/24 Date of Discharge: 09/24/24 Treatments to Date: 9 Cancellations to Date: No Shows to Date: Discharge Status: Recommend MD Follow-up Discharge Summary: 09/24/2024: He feels he has not made improvements in being able to put on his jacket after 9 visits of PT. He continues to have pain and restrictions in ROM. At this point based on his lack of progress it is no longer indicated to continue with skilled PT. Pt to be d/c to his HEP and follow up with his doctor for management of his ongoing pain. He is in agreement with this plan. Electronically signed by: Marisela Ellison, PT, DPT, ATC Please sign and return to therapist. Thank you for your referral.
== END 2024-09-24 09:49 | disposition home or self-care (01) ==
LOC: HO.PTCHIC 09:00
PROVIDERS: PCP Internal Medicine
DX: R29.898 Other symptoms and signs involving the musculoskeletal system (principal)
CPT/HCPCS: 97110; 97162

== ENCOUNTER 2024-12-21 13:23 | Outpatient (AMB) | payer MEDICARE, SELFPAY ==
--- NOTE | 2024-12-21 13:24 | MHC.PC.OV ---
Vital Signs 12/21/24 13:25 Height 5 ft 10 in Weight 155 lb BMI 22.2 BP 130/60 Blood Pressure Location Lt brachial Position Sitting Pulse 64 Pulse Source Pulse Oximeter Temp 97.3 F Temp Source Temporal Artery Scan Pulse Oximetry (%) 97 Oxygen Delivery Method Room Air Intake Visit Reasons: f/u HTN Intake Note: Patient is here to follow up on HTN. Pvc Loader Required: No Design Lead: Not Required per policy Accompanied by: Self / Same As Patient Allergies No Known Allergies Allergy (Mild, Verified 12/21/24 13:34) N/A Medication List - Last Reconciled 12/21/24 by Naila Mayers PA-C albuterol sulfate 90 mcg/actuation 2 inhalations inhalation Q4-6H PRN ascorbate calcium (vitamin C) 500 mg PO DAILY aspirin (Adult Low Dose Aspirin) 81 mg PO DAILY chair, wheel (Wheel chair) 16 inch with elevating leg rest (manual) cholecalciferol (vitamin D3) 25 mcg PO DAILY comp.stocking,knee,long,medium As directed cyproheptadine 4 mg PO BEDTIME Lactobacillus rhamnosus GG (Culturelle) 1 cap PO DAILY meloxicam 7.5 mg PO DAILY polyethylene glycol 3350 (Miralax) 17 grams PO DAILY rosuvastatin 40 mg PO DAILY sennosides (senna) 8.6 mg PO BEDTIME sertraline 25 mg (1/2 x 50 mg) PO DAILY tolterodine ER 4 mg PO DAILY Tobacco use date assessed: 12/21/24 Fall risk assessment: No Falls in past year Last assessed Fall Risk: 12/21/24 Dental Screening Dental Screen Date: 09/21/24 HPI f/u HTN HPI Details 89-year-old male with past medical history of prostate cancer, hypercholesterolemia, depression, history of DVT last seen 09/2024 coming in for follow up.? he does follow with [facility] for melani shoulder pain - and melani leg pain found PT beneficial. BP has normalized. ability to perform ADLs but does require assistance with bathing. patient has difficulty doing his home exercises to his full ability due to dif with equipment. Presenting with management of chronic pain and difficulty with physical activities. The patient experiences chronic shoulder pain affecting his daily activities such as lifting objects. There is also persistent bilateral leg pain over three years, severely affecting his capacity to kneel or stand for extended periods. The use of meloxicam is limited due to considerations for kidney function and bleeding risks. He is facing challenges with previously routine activities and requires assistance from his son. Generally denies having chest pain or shortness of breath recently, though these were concerns in the past. [facility] Medical History Varicose veins of right lower extremity with inflammation Leg wound, right Decreased appetite Adult general medical exam Diarrhea Cellulitis Dysphagia Nausea Frequency of micturition Venous insufficiency COVID-19 virus infection Leukocytosis Normocytic anemia Hyponatremia Low sodium levels Hypercholesterolemia Prostate cancer Osteoarthritis, shoulder Surgical History History of radical prostatectomy Erectile dysfunction following urethral surgery Family History Father Diabetes Social History Household Members: Children Household Members Other:: daughter Housing: House Do you presently have visiting nurse or other home services: Yes ([facility]) Alcohol intake: never Patient Tobacco Use Status: Never used Tobacco e-Cigarette/Vaping Use: Never Used Second Hand Smoke Exposure: No Advance Directives Date on File: 08/24/21 service: No Current occupational status: retired 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 Warner Gandhi, Ava Machuca, Mt Calderon and colleagues, with an educational conrad from [employer]. Review of Systems Const Denies body aches, Denies chills, Denies fever(s), Denies headache(s) and Denies poor appetite Eyes Reports no additional complaints ENT Denies dysphagia, Denies dizziness, Denies headache(s) and Denies odynophagia Card Denies chest pain, Denies syncope, Denies edema, Denies irregular heart rhythm, Denies lightheadedness and Denies dyspnea Resp Denies cough and Denies dyspnea GI Denies abdominal pain, Denies constipation, Denies dysphagia, Denies diarrhea, Denies nausea, Denies odynophagia and Denies vomiting Reports no additional complaints Musc Reports no additional complaints and Denies abnormal gait Skin/Breast Reports system reviewed and no additional complaints, except as documented Neuro Denies abnormal gait, Denies dizziness, Denies syncope and Denies headache(s) Psych Reports no additional complaints Physical exam (Primary Care) Tobacco/Smoking Status: Tobacco use Status Tobacco use date assessed 09/21/24 09/21/24 14:05 Patient Tobacco Use Status Never used Tobacco 09/21/24 14:05 e-Cigarette/Vaping Use Never Used 09/21/24 14:05 Thrive Assessment: Date of Thrive Assessment Date Thrive assessed 09/21/24 09/21/24 14:05 Const General: cooperative, healthy appearing, comfortable and no acute distress Orientation/consciousness: patient oriented x3 HENMT Head: Yes normocephalic Ears: hearing grossly normal bilaterally General nose exam: Normal external nose present Eyes General: appearance normal, both eyes and all related structures Conjunctivae: conjunctivae normal Neck Neck: Yes full ROM and Yes no lymphadenopathy Resp Effort & Inspection: normal respiratory effort Auscultation: clear to auscultation bilaterally, no crackles, no rales, no rhonchi and no wheezes Cardio Rate: regular rate Rhythm: regular rhythm Skin General skin exam: no rashes or lesions noted Neuro General: patient oriented x3 Gait exam (Neuro): Normal gait present Extrem General: Yes normal to inspection, Yes full ROM and No edema Psych Affect: normal affect Attitude: cooperative Insight: Good insight present (Psych) Judgement: Good judgement present (Psych) Coding Level of Care Code Est Pt Level 3 (79293) Diagnoses Hypercholesterolemia E78.00 Recurrent major depressive disorder, remission status unspecified F33.9 Active/Remission status: remission status unspecified Upper extremity weakness R29.898 Leg weakness, bilateral R29.898 Assessment & Plan Assessment & Plan (1) Hypercholesterolemia: Code(s): E78.00 - Pure hypercholesterolemia, unspecified Category: Medical Plan: Avoid foods that are high in cholesterol such as red meat, fried foods, eggs and baked goods. Triglyceride goal of less than 150 and LDL goal of less than 130. Cholesterol at goal on last labs (2) Recurrent major depression: Comment: has good support. Code(s): F33.9 - Major depressive disorder, recurrent, unspecified Category: Medical Qualifiers: Active/Remission status: remission status unspecified Qualified Code(s): F33.9 - Major depressive disorder, recurrent, unspecified Plan: On sertraline 25 mg feels this medication is beneficial for him. Denies any symptoms at this time (3) Upper extremity weakness: Code(s): R29.898 - Other symptoms and signs involving the musculoskeletal system Category: Medical Plan: Patient continues to have upper extremity weakness and bilateral shoulder pain. Continue to follow with [facility] for bilateral shoulder injections for osteoarthritis. Working with physical therapy in the past and found this beneficial, referral was placed again today. Continue with at-home exercises. Prescription sent for meloxicam 7.5 mg advised patient take this with plenty of food and water (4) Leg weakness, bilateral: Code(s): R29.898 - Other symptoms and signs involving the musculoskeletal system Category: Medical Plan: Referral was placed to physical therapy today for unsteady gait and bilateral leg weakness. Plan We will manage shoulder and bilateral leg pain conservatively with meloxicam, taken only as needed, due to potential renal and bleeding risks. Physical therapy is to be reinstated, focusing on functional enhancement and balance improvement, acknowledging its previous efficacy. Addressing considerable fall risk. Nutritional management and routine specialist follow-ups are prioritized, alongside ensuring insurance issues do not impede his rehabilitation access. Continued hospice home care coordinator involvement is essential for patient safety at home. This note was constructed using voice recognition software. While every effort has been made to ensure accuracy and verifier operator, still areas may have been included sometimes these areas may affect the content or meeting of the given symptoms. Total time spent caring for the patient today was 20 minutes. This includes time spent before the visit reviewing the chart, time spent during the visit, and time spent after the visit and documentation. Orders: Orders PT Evaluation and Treatment Today R26.81 - Unsteadiness on feet, R29.898 - Other symptoms and signs involving the musculoskeletal system Medications: Refilled meloxicam 7.5 mg PO DAILY 30 tabs 2RF
[2024-12-21 13:25] VITALS: BP 130/60; PULSE 64; TEMP 36.3; O2SAT 97; BMI 22.2
--- OUTSIDE RECORDS SUMMARY | 2024-12-21 16:19 | XMS_ITS | Patient Health Record ---
Author Organization [facility] Address [address] [place] [id number] Care Team Providers Care Mottle Lay Up Operator Name Role Phone Po Bobbi TROY Primary Care Provider Warner Sinclair [phone] Allergies No Known Allergies Reason For Referral No Information Medications Medication SIG (Take, Route, Frequency, Duration) Notes Start Date End Date Status Vitamin C 500mg Acti ve Tolterodine Tartrate ER 4 MG Oral for 90 Active Cyproheptadine HCl 4 MG TAKE 1 TABLET BY MOUTH AT BEDTIME Oral for 90 Active MiraLax 17 GM 1 packet mixed with 8 ounces of fluid Orally Once a day for 30 day(s) Active Rosuvastatin Calcium 40 MG TAKE 1 TABLET BY MOUTH DAILY Oral for 30 Active Albuterol Sulfate HFA 108 (90 Base) MCG/ACT Inhalation for 16 Activ e Vitamin B-12 1000 MCG 1 tablet Orally On ce a day for 30 day(s) Active Senna 8.6 MG 2 tablets at bedtime as needed Orally Once a day for 30 day(s) 12/04/2023 Active Sertraline HCl 25 MG 1 tablet Orally Onc e a day for 30 day(s) Active Meloxicam 15 MG 1 tablet Orally Once a day for 30 day(s) Active Culturelle Active Gemtesa 75 MG 1 tablet Orally Once a day Active Vitamin D3 Active Aspirin 81 81 MG 1 tablet Orally Once a day for 30 day(s) Active Immunizations Vaccine Route Administration Date Status Comme nts Influenza Unknown 05/09/2021 Administered Influenza Unknown 06/10/2022 Administered Problems Problem Type SNOMED Code ICD Code Onset Dates Problem Status W/U Status Risk Notes Problem Weight loss (370191729) Weight loss (R63.4) Active confirmed Problem Early satiety (263718288) Early satiety (R68.81) Active confirmed Problem Barium swallow abnormal (874245278) Abnormal barium swallow (R93.3) Active confirmed Plan Of Treatment Future Test Test Name Order Date COLONOSCOPY 07/09/2012 UPPER GI ENDOSCOPY [place] DILATION OF ESOPH 05/02/2022 Insurance Providers Payer Name Payer Address Payer Phone Subscriber Number Group Number Insured Name Patient Relationship to Insured Coverage Start Date Coverage End Date MEDICARE [place] [address] [place] [address] [id number] JOHN MINAYA Self - patient is the insured [employer] ATTN CLAIMS [address] [place] [address] [id number] JOHN MINAYA Self - patient is the insured Medical (General) History Medical History History ICD Code Colonoscopy was in 11-07-2008 with removal of small tubular adenomas Colon and rectal polyps-tubular adenomas Hyperlipidemia Denies NC,DM,CVA,Lung disease,renal dise ase Prostate cancer with prostat ectomy in 2000; and then he had radiation treatments for a rising PSA in 2008-he developed urinary incontinence after that, and subsequently had an artificial sphincter placed with moderate improvement Colonoscopy 08/2012 with removal of smal l tubular adenomas COVID 2020 EGD 05/2022-small HH, otherwi se WNL including gastric and duodenal-no H.pylori, no celiac disease He describes a urinary tract infection last year for which he was hospitalized Surgical History Surgery Date(Month/Year) Appendectomy Prostate surgery as above--
--- OUTSIDE RECORDS SUMMARY | 2024-12-21 16:19 | XMS_ITS ---
Author Organization [facility] Address [address] [place] [address] Care Team Providers Care Vaccine Specialist Name Role Phone Bobbi Harris MD Primary Care Provider Warner Sinclair [phone] Allergies No Known Allergies REASON FOR VISIT achlasia of cardia Medications Medication SIG (Take, Route, Frequency, Duration) Notes Start Date End Date Status MiraLax 17 GM 1 packet mixed with 8 ounces of fluid Orally Once a day for 30 day(s) Active Senna 8.6 MG 2 tablets at bedtime as needed Orally Once a day for 30 day(s) 12/04/2023 Active Culturelle Active Gemtesa 75 MG 1 tablet Orally Once a day Active Vitamin D3 Active Rosuvastatin Calcium 40 MG TAKE 1 TABLET BY MOUTH DAILY Oral for 30 Active Albuterol Sulfate HFA 108 (90 Base) MCG/ACT Inhalation for 16 Activ e Vitamin C 500mg Acti ve Tolterodine Tartrate ER 4 MG Oral for 90 Active Cyproheptadine HCl 4 MG TAKE 1 TABLET BY MOUTH AT BEDTIME Oral for 90 Active Sertraline HCl 25 MG 1 tablet Orally Onc e a day for 30 day(s) Active Meloxicam 15 MG 1 tablet Orally Once a day for 30 day(s) Active Vitamin B-12 1000 MCG 1 tablet Orally On ce a day for 30 day(s) Active Aspirin 81 81 MG 1 tablet Orally Once a day for 30 day(s) Active Vital Signs Blood pressure systolic 00 mm Hg 12/04/19 24 Blood pressure diastolic 00 mm Hg 024 Height 70.5 in 12/04/2023 Weight 145 lbs 12/04/2023 BMI 20.51 kg/m2 12/04/2023 Encounters Encounter Location Date Provider Diagnosis [facility] [address] [place] [address] 12/04/2023 Warner Melgar Abnormal barium swallow R93.3 Assessments Encounter Date Diagnosis (ICD Code) Assessment Notes Treatment Notes Treatment Clinical Notes Section Notes 12/04/2023 Abnormal barium swallow (ICD-10 - R93.3) Continue eating as best as possible. Call me if you develop trouble eating or swallowing. Overall, John appears quite well. He is not having any new or worrisome GI complaints at the present time. We did review that his 10 pound weight gain since I last saw him in August of 2022 is certainly encouraging and reassuring. We did discuss the recent barium swallow report. Given his very normal upper endoscopy in 2021, the lack of any particular symptoms referrable to the findings on the barium swallow, and his good clinical appearance including a 10 pound weight gain, I don't think the findings and reports of the barium swallow are of any clinical significance at this time. Given his age and my feeling that the findings on the barium swallow are not of any clinical significance, I advised him that I do not think it would be worthwhile to put him through another upper endoscopy at this time. While the procedure is safe and I think he would tolerate it well, it would be best to avoid any invasive procedures on him at this point of his life unless they were definitively indicated. We did review that certainly if anything changes such as trouble eating, dysphagia, early satiety, etc., he should contact me or be referred back to see me for reevaluation. I don't think he needs to be on any particular medication for the upper GI tract at this time either given his present history, including the normal upper endoscopy in 2021. At this point I advised him to see me on a p.r.n. basis. John was very comfortable with this plan. Thank you again for allowing me to participate in John's care. I shall continue to keep you advised of his progress as needed. Please do not hesitate to contact me if I can be of any further assistance in the future. Plan Of Treatment Treatment Notes Assessment Notes Abnormal barium swallow Continue eating as best as possible. Call me if you develop trouble eating or swallowing. Next Appt Details Follow Up: prn, Reason: Progress Notes * JOHN MINAYA LDOB:1934 (89 yo M)Acc No.[id number]:12/04/2023 Progress Notes Patient:JOHN RODRIGUEZ Provider:?Warner Melgar MD :1935???Age:88 Y???Sex:Male Neto e:12/04/2023 Address:[address] [place], [place] [id number] Pcp:Bobbi Harris MD Subjective: * Chief Complaints: * ???Achlasia of cardia * HPI: ???incontinence:? I saw John in the office today for evaluation of his abnormal barium swallow report. ?I last saw John in August of 2022 for followup in regard to his previous weight loss. He did have an upper endoscopy with me in May 2022 which was completely normal other than a small hiatal hernia. Duodenal and gastric biopsies were unremarkable at that time. There was no evidence of any esophagitis or esophageal stricture. ?Since that time he reports that he has actually been eating comfortably. He currently has had some issues with occasional dysphagia and therefore a barium swallow was obtained on November 13. 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 The radiology report does not describe any type of definitive stricture, mass, nor suspicious abnormality otherwise. There was some evidence of some oropharyngeal issues with pooling of barium, but there was no chriss aspiration. There was evidence of some esophageal dysmotility. ?John presently reports that he feels very well from a GI standpoint. He denies any dysphagia at the present time. He describes that he is eating all types of food including meat, bread, and rice. He denies any difficulties with liquids. He denies any significant coughing or choking with his meals. He denies any significant heartburn, early satiety, nausea, no vomiting. He denies abdominal pain or jaundice. He reports his bowel movements are fairly regular and he denies any signs of bleeding. His weight today is 145 pounds and he has gained 10 pounds since he was here in August of 2022. * ROS:?General/Constitutional:?Change in appetite?denies.?Chills?denies.?Fatigue?denies.?Ophthalmologic:?Patient denies? Negative..?ENT:?Patient denies?Negative..?Respiratory:?Patient denies?No coughing/hemoptysis..?Cardiovascular:?Patient denies? No chest pain/orthopnea..?Gastrointestinal:?Comments?See HPI for details.?Genitourinary:?Patient denies? No dysuria/hematuria..?Musculoskeletal:?Patient denies? No specific arthralgias/myalgias..?Skin:?Patient denies?No rash/pruritus..?Neurologic:?Patient denies?No headaches/seizures. Balance difficulty.?Psychiatric:?Patient denies?Negative..? * Medical History:? * Surgical History:?Appendecto my Prostate surgery as above-- * Hospitalization/Major Diagno stic Procedure:?No Hospitalization History. * Family History:?Father: dece ased.?Mother: .? There is no family history of colorectal cancer nor polyps. * Social History:?Tobacco Use:?Tobacco Use/Smoking?Are you a: nonsmoker.?Drugs/Alcohol:?Alcohol Screen?Points: 2, Interpretation: Negative.?Miscellaneous:?Marital status: , 2019. Occupation: Retired. ???Nonsmoker; occasional beer. * Medications:?TakingMiraLax 1 7 GM Packet 1 packet mixed with 8 ounces of fluid Orally Once a dayCulturelle Gemtesa 75 MG Tablet 1 tablet Orally Once a dayVitamin D3 Aspirin 81 81 MG Tablet Chewable 1 tablet Orally Once a dayVitamin B-12 1000 MCG Tablet 1 tablet Orally Once a daySertraline HCl 25 MG Tablet 1 tablet Orally Once a dayMeloxicam 15 MG Tablet 1 tablet Orally Once a dayVitamin C 500mg Tolterodine Tartrate ER 4 MG Capsule Extended Release 24 Hour Oral Cyproheptadine HCl 4 MG Tablet TAKE 1 TABLET BY MOUTH AT BEDTIME Oral Rosuvastatin Calcium 40 MG Tablet TAKE 1 TABLET BY MOUTH DAILY Oral Albuterol Sulfate HFA 108 (90 Base) MCG/ACT Aerosol Solution Inhalation Senna 8.6 MG Tablet 2 tablets at bedtime as needed Orally Once a dayTaking MiraLax 17 GM Packet 1 packet mixed with 8 ounces of fluid Orally Once a dayTaking Culturelle Taking Gemtesa 75 MG Tablet 1 tablet Orally Once a dayTaking Vitamin D3 Taking Aspirin 81 81 MG Tablet Chewable 1 tablet Orally Once a dayTaking Vitamin B-12 1000 MCG Tablet 1 tablet Orally Once a dayTaking Sertraline HCl 25 MG Tablet 1 tablet Orally Once a dayTaking Meloxicam 15 MG Tablet 1 tablet Orally Once a dayTaking Vitamin C 500mg Taking Tolterodine Tartrate ER 4 MG Capsule Extended Release 24 Hour Oral Taking Cyproheptadine HCl 4 MG Tablet TAKE 1 TABLET BY MOUTH AT BEDTIME Oral Taking Rosuvastatin Calcium 40 MG Tablet TAKE 1 TABLET BY MOUTH DAILY Oral Taking Albuterol Sulfate HFA 108 (90 Base) MCG/ACT Aerosol Solution Inhalation Taking Senna 8.6 MG Tablet 2 tablets at bedtime as needed Orally Once a dayDiscontinuedoxyBUTYnin Chloride ER 15 MG Tablet Extended Release 24 Hour 1 tablet Orally Once a dayDesmopressin Acetate 0.1 MG Tablet 1 tablet Orally Twice a dayAtorvastatin Calcium 80 MG Tablet 1 tablet Orally Once a dayMedication List reviewed and reconciled with the patientDiscontinued oxyBUTYnin Chloride ER 15 MG Tablet Extended Release 24 Hour 1 tablet Orally Once a dayDiscontinued Desmopressin Acetate 0.1 MG Tablet 1 tablet Orally Twice a dayDiscontinued Atorvastatin Calcium 80 MG Tablet 1 tablet Orally Once a dayMedication List reviewed and reconciled with the patient * Allergies:?N.K.D.A.yes[Aller gies Verified] Objective: * Vitals:?Wt: 145 lbs, Ht: 70. 5 in, BMI:20.51 Index, BP: 00/00 mm Hg. * Examination: ???General Examination: ?GENERAL APPEARANCE:?pleasant, alert, elderly male in no acute distress.?EYES:?sclera non-icteric.?ORAL CAVITY:?mucosa moist.?NECK/THYROID:?no cervical lymphadenopathy, neck supple.?SKIN:?nonjaundiced, no spider angiomata..?HEART:?S1, S2 normal.?LUNGS:?clear to auscultation bilaterally.?ABDOMEN:?normal bowel sounds, no guarding or rigidity, no hepatosplenomegaly, no masses palpable, soft, nontender, nondistended..?EXTREMITIES:?no edema.?NEUROLOGIC:?alert and oriented.? Assessment: * Assessment: 1.?Abnormal barium swallow - R93.3 (Primary)? Overall, John appears quit e well. He is not having any new or worrisome GI complaints at the present time. We did review that his 10 pound weight gain since I last saw him in August of 2022 is certainly encouraging and reassuring. We did discuss the recent barium swallow report. Given his very normal upper endoscopy in 2021, the lack of any particular symptoms referrable to the findings on the barium swallow, and his good clinical appearance including a 10 pound weight gain, I don't think the findings and reports of the barium swallow are of any clinical significance at this time. Given his age and my feeling that the findings on the barium swallow are not of any clinical significance, I advised him that I do not think it would be worthwhile to put him through another upper endoscopy at this time. While the procedure is safe and I think he would tolerate it well, it would be best to avoid any invasive procedures on him at this point of his life unless they were definitively indicated. We did review that certainly if anything changes such as trouble eating, dysphagia, early satiety, etc., he should contact me or be referred back to see me for reevaluation. I don't think he needs to be on any particular medication for the upper GI tract at this time either given his present history, including the normal upper endoscopy in 2021. At this point I advised him to see me on a p.r.n. basis. John was very comfortable with this plan. Thank you again for allowing me to participate in John's care. I shall continue to keep you advised of his progress as needed. Please do not hesitate to contact me if I can be of any further assistance in the future. Plan: * Treatment: * Procedure Codes:?1036F TOBAC CO [id number]-[id number] BP SCR NOT PRFRM REC REASON NOS * Follow Up:?prn * * Sign off status: Completed true * Provider:?Warner Melgar MD Date:? 024 Generated for Sae hardin/Franky/Maliaitting on:?12/21/2024 04:19 PM EDT History and Physical Notes * HPI (History of Present Illness) Category Sub-Category Detail Notes Category Not es incontinence I saw John in the office today for evaluation of his abnormal barium swallow report. I last saw John in August of 2022 for followup in regard to his previous weight loss. He did have an upper endoscopy with me in May 2022 which was completely normal other than a small hiatal hernia. Duodenal and gastric biopsies were unremarkable at that time. There was no evidence of any esophagitis or esophageal stricture. Since that time he reports that he has actually been eating comfortably. He currently has had some issues with occasional dysphagia and therefore a barium swallow was obtained on November 13. 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 The radiology report does not describe any type of definitive stricture, mass, nor suspicious abnormality otherwise. There was some evidence of some oropharyngeal issues with pooling of barium, but there was no chriss aspiration. There was evidence of some esophageal dysmotility. John presently reports that he feels very well from a GI standpoint. He denies any dysphagia at the present time. He describes that he is eating all types of food including meat, bread, and rice. He denies any difficulties with liquids. He denies any significant coughing or choking with his meals. He denies any significant heartburn, early satiety, nausea, no vomiting. He denies abdominal pain or jaundice. He reports his bowel movements are fairly regular and he denies any signs of bleeding. His weight today is 145 pounds and he has gained 10 pounds since he was here in August of 2022. Examination Category Sub-Category Detail Notes Category Not es General Examination GENERAL APPEARANCE: pleasant , alert, elderly male in no acute distress EYES: sclera non-icteric NECK/THYROID: no cervical lymphade nopathy, neck supple HEART: S1, S2 normal LUNGS: clear to auscultatio n bilaterally ABDOMEN: normal bowel sounds, no guarding or rigidity, no hepatosplenomegaly, no masses palpable, soft, nontender, nondistended. NEUROLOGIC: alert and oriented SKIN: nonjaundiced, no spi danika angiomata. EXTREMITIES: no edema ORAL CAVITY: mucosa moist
--- OUTSIDE RECORDS SUMMARY | 2024-12-21 16:19 | XMS_ITS ---
Author Organization [facility] Care Team Providers Care Loss Prevention Guard Name Role Phone Halie Griffin Unavailable Unavailable Allergies and adverse reactions No Known Allergies Care Team Name Role Address Phone Organization Dates Halie Griffin Attending Physician [address], [place], [address], [place] (Office): : : [facility] 06/20/2023 - 07/12/2023 Immunizations Immunization Status Vaccine Details Vaccine Code CodeSystem Date Notes Pneumovax Dose 1 completed pneumococcal polysaccharide vaccine, 23 valent 33 CVX created date: 04/07/2023 administere d date: 05/04/2021 TB 1 Step Mantoux (PPD) completed tuberculin skin test; purified protein derivative solution, intradermal lotNumber: [id number] expiry: 06/07/2024 Mfg: Phar [employer]ace[employer]id[employer] Given 0.1 Right Forearm intradermally 96 CVX created date: 06/22/2023 consent date: 06/22/2023 administere d date: 06/22/2023 TB 1 Step Mantoux (PPD) completed tuberculin skin test; purified protein derivative solution, intradermal lotNumber: [id number] expiry: 05/09/2024 Mfg: par pharmaceutical Given 0.1 ml Right Forearm intradermally 96 CVX created date: 04/05/2023 consent date: 04/05/2023 administere d date: 04/05/2023 TB 2 Step Mantoux Skin Test completed tuberculin skin test; purified protein derivative solution, intradermal lotNumber: [id number] expiry: 06/07/2024 Given 0.1 ml Left Forearm intradermally Step 1 of Multi-step with next step required 96 CVX created date: 06/25/2023 consent date: 06/25/2023 administere d date: 06/25/2023 PCV (Prevnar) 13 completed pneumococcal conjugate vaccine, 13 valent 133 CVX created date: 04/07/2023 administere d date: 06/24/2015 Influenza (vial) completed Influenza, spli t virus, trivalent, injectable, contains preservative 141 CVX created date: 04/07/2023 consent date: 04/07/2023 administere d date: 07/05/2021 COVID-19 Vaccine Dose 1 completed unknown vaccine or immune globulin Mfg: Pfizer 999 CVX created date: 04/07/2023 administere d date: 05/03/2021 COVID-19 Vaccine Dose 2 completed unknown vaccine or immune globulin Mfg: Pfizer 999 CVX created date: 04/07/2023 administere d date: 05/24/2021 Mental Status Section Date Assessment Total Score Description 07/12/2023 BIMS 14 cognitively int act CAM 0 No delirium ind icated 06/23/2023 BIMS 12 moderate cognit sherwin impairment CAM 0 No delirium ind icated Problems Problem # Description Date of onset Resolved Date Code CodeSystem Concern Status 1 ACUTE EMBOLISM AND THROMBOSIS OF RIGHT POPLITEAL VEIN 06/20/[address] active 2 MALIGNANT NEOPLASM OF PROSTATE 06/20/[address] active 3 NON-PRESSURE CHRONIC ULCER OF OTHER PART OF UNSPECIFIED FOOT WITH UNSPECIFIED SEVERITY 06/20/[address] active 4 OTHER RETROPERITONEAL ABSCESS 06/20/[address] active 5 UNSPECIFIED PROTEIN-CALORIE MALNUTRITION 06/20/[address] active 6 ACQUIRED ABSENCE OF OTHER GENITAL ORGAN(S) 04/05/[address] active 7 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 04/05/[address] active 8 CEREBROVASCULAR DISEASE, UNSPECIFIED 04/05/[address] active 9 DYSPHAGIA, UNSPECIFIED 04/05/[address] active 10 HYPERLIPIDEMIA, UNSPECIFIED 04/05/[address] active 11 HYPO-OSMOLALITY AND HYPONATREMIA 04/05/[address] active 12 PERIPHERAL VASCULAR DISEASE, UNSPECIFIED 04/05/[address] active 13 PERSONAL HISTORY OF MALIGNANT NEOPLASM OF PROSTATE 04/05/[address] active 14 UNSPECIFIED FALL, SUBSEQUENT ENCOUNTER 04/05/[address] active 15 UNSPECIFIED LACK OF COORDINATION 04/05/[address] active 16 UNSTEADINESS ON FEET 04/05/[address] active 17 WEAKNESS 04/05/[address] active Reason for Referral No Reasons for Referral Entered Social History Social History Observation Description Start Date End Date Code Code System Current Smoking Status Tobacco smoking consumption unknown 138711368 SNOMED CT Sex Assigned At Male 1935 19618-8 [facility] Vital Signs Code Code System Vitals Name Values and Units Timing Information 42455-1 LOINC Pain Level Value=0.0 07/12/2023 9279-1 LOINC Respiratory Rate Value=18.0 Units=/m in 07/12/2023 8462-4 LOINC Blood Pressure-Diastolic Value=74 Un its=mmHg 07/12/2023 8480-6 LOINC Blood Pressure-Systolic Frthw=210 Un its=mmHg 07/12/2023 8310-5 [facility] Body Temperature Value=98.6 Units=?? F 07/12/2023 8867-4 [facility] Heart rate Value=70.0 Units=/min 12/2022 90943-8 [facility] O2 % BldC Oximetry Value=95.0 Units= % 07/12/2023 42899-6 [facility] Weight Xhbct=672.2 Units=Lbs 09/2022 8302-2 [facility] Height Value=70.0 Units=Inches 04/05/2023
--- OUTSIDE RECORDS SUMMARY | 2024-12-21 16:19 | XMS_ITS ---
Author Organization [facility] Address [address] [place] [address] Care Team Providers Care Bath Attendant Name Role Phone Bobbi Harris MD Primary Care Provider Warner Sinclair [phone] REASON FOR VISIT Patient presents today for constipation Encounters Encounter Location Date Provider Diagnosis [facility] [address] [place] [phone] 08/14/2023 Warner Melgar Plan Of Treatment No Information Progress Notes * REIHERLINDAJOHN LDOB:1934 (89 yo M)Acc No.[id number]:08/14/2023 Progress Notes Patient:?JOHN MINAYA Provider:?Warner Melgar MD :1935???Age:88 Y???Sex:Male Neto e:08/14/2023 Address:[address] [place], [place] [id number] Pcp:Bobbi Harris MD Subjective: * Chief Complaints: * ???1. Patient presents today for constipation. * Medical History:? Objective: * Vitals:? Assessment: Plan: * Treatment: * * The named appointment provid er may or may not be the originator of this progress note, and it is not deemed complete until electronically signed by the appointment provider. Sign off status: Pending * Provider:?Warner Melgar MD Date:? 023 Generated for Kulwinderi wilfred/Franky/eTransmitting on:?12/21/2024 04:19 PM EDT
--- OUTSIDE RECORDS SUMMARY | 2024-12-21 16:19 | XMS_ITS | Clinical Summary ---
Author Organization [facility] Address [address] [place] [address] Phone Care Team Providers Care Sports Apparel Internship Name Role Phone Bobbi Harris MD Primary Care Provider [phone] Allergies No known active allergies Medications atorvastatin (LIPITOR) 80 MG tablet Take 80 mg by mouth 1 (one) time each day in the morning 03/31/2022 Active desmopressin (DDAVP) 0.2 MG tablet Take 0.1 mg by mouth 1 (one) time each day in the evening 2022 Active oxybutynin XL (DITROPAN-XL) 15 MG 24 hr tablet Take 15 mg by mouth in the morning and 15 mg in the evening. 02/14/2022 Active meloxicam (MOBIC) 15 MG tablet Take 15 mg by mouth 1 (one) time each day 03/28/2022 Active aspirin (ST NADINE) 81 MG EC tablet Take 81 mg by mouth 1 (one) time each day Active Magnesium 500 MG tablet Take 500 mg by mouth 1 (one) time each day Active cyanocobalamin (VITAMIN B-12) 1000 MCG tablet Take 1,000 mcg by mouth 1 (one) time each day Active Ascorbic Acid (vitamin C) 500 MG tablet Take 500 mg by mouth 1 (one) time each day Active Cholecalciferol (Vitamin D3) 50 MCG (1999) tablet Take 50 mcg by mouth 1 (one) time each day Active Active Problems Problem Noted Date Diagnosed Date Acquired absence of other genital organ 09/08/1906/09/2023 Dysphagia 09/08/2022 06/09/2023 Male erectile dysfunction 09/08/20222022 Metabolic encephalopathy 09/08/2022 023 Peripheral vascular disease 09/08/202210/2022 Anemia, not otherwise specified 03/28/2022 Hyponatremia 03/28/2022 Resolved Problems Problem Noted Date Diagnosed Date Resolved Date Prostate cancer care review done 03/28/2022 03/28/2022 Hypercholesterolemia 03/28/2022 022 Anxiety 03/28/2022 03/28/2022 Osteoarthritis 03/28/2022 03/28/2022 Venous insufficiency 03/28/2022 022 Social History Tobacco Use Types Packs/Day Years Used Date Smoking Tobacco: Never Assessed Sex and Gender Information Value Date Recorded Sex Assigned at Not on file Legal Sex Male 10:56 AM EDT Gender Identity Not on file Sexual Orientation Not on file Last Filed Vital Signs Vital Sign Reading Time Taken Comments Blood Pressure - - Pulse 67 04/01/2022 11:27 AM EDT Temperature - - Respiratory Rate - - Oxygen Saturation 97% 04/01/2022 11:27 AM EDT Inhaled Oxygen Concentration - - Weight 63.5 kg (140 lb) 04/01/2022 11:27 AM EDT Height - - Body Mass Index - - Plan of Treatment Health Maintenance Due Date Last Done Comments Pneumococcal Vaccine: 50+ Ye ars (1 of 2 - PCV) 01/02/1954 Influenza Vaccine (Season Ended) 2025 Hepatitis B Vaccine Aged Out No longe r eligible based on patient's age to complete this topic Insurance Medicare [facility] Medicare [facility] Care Teams Sports Apparel Internship Relationship Specialty Start Date End Date Bobbi Harris MD [facility] [address] [place], [place] PCP - General Internal Medicine 03/04/22
--- OUTSIDE RECORDS SUMMARY | 2024-12-21 16:19 | XMS_ITS ---
Author Organization [facility] Address [address] [place] [phone] Care Team Providers Care Fire Control Assistant Name Role Phone Bobbi Harris MD Primary Care Provider Warner Sinclair [phone] REASON FOR VISIT cancel appt Encounters Encounter Location Date Provider Diagnosis [facility] [address] [place] [address] 08/13/2023 Warner Melgar Plan Of Treatment No Information Progress Notes * JOHN MINAYADOB:[birth year] (88 yo M)Acc No.[id number]:08/13/2023 Patient:?JOHN MINAYA :1935???Age:88 Y???Sex:Male Address:[address] [place] [address] * true * Date:? Generated for Printi ng/Faanthonyg/eTransmitting on:?12/21/2024 04:19 PM EDT
== END 2024-12-21 13:53 | disposition home or self-care (01) ==
LOC: HO.HMCH 13:23
PROVIDERS: PCP Internal Medicine
DX: E78.00 Pure hypercholesterolemia, unspecified (principal); F33.9 Major depressive disorder, recurrent, unspecified; R29.898 Other symptoms and signs involving the musculoskeletal system

== ENCOUNTER → 2024-12-21 13:23 | Outpatient (BNVA) | payer MEDICARE, SELFPAY | PROVIDERS: PCP Internal Medicine | DX: E78.00 Pure hypercholesterolemia, unspecified (principal); F33.9 Major depressive disorder, recurrent, unspecified; R29.898 Other symptoms and signs involving the musculoskeletal system | CPT/HCPCS: 99212 ==

== ENCOUNTER 2025-01-07 08:14 | Outpatient (AMB) | payer MEDICARE, SELFPAY ==
--- OUTSIDE RECORDS SUMMARY | 2025-01-07 08:26 | XMS_ITS | Clinical Summary ---
Author Organization [facility] Address [address] [facility] [address] [place] [address] Phone Care Team Providers Care Financial Consultant Name Role Phone Bobbi Harris MD Primary Care Provider [phone] Allergies No known active allergies Medications atorvastatin [...] age to complete this topic Insurance Medicare [facility] Medicare [facility] Care Teams Financial Consultant Relationship Specialty Start Date End Date Bobbi Harris MD [facility] [place] [address] [place], [place] PCP - General Internal Medicine 03/04/22
--- NOTE | 2025-01-07 08:37 | MHC.OFFWIV ---
Intake Vital Signs 01/07/25 08:40 Weight 160 lb BP 118/74 Blood Pressure Location Lt brachial Position Sitting Pulse 62 Pulse Source Pulse Oximeter Pulse Oximetry (%) 98 Oxygen Delivery Method Room Air Intake Visit Reasons: EP Cut on LT leg Intake Note: Patient here for cut on left leg after doing some yard work yesterday. Patient Tobacco Use Status: Never used Tobacco Allergies No Known Allergies Allergy (Mild, Verified 01/07/25 08:41) N/A Do you need a note to return to daycare/school/sports/work: No HPI HPI Comments History of Present Illness Details History of Present Illness - The patient is an 89-year-old male presenting with a skin tear on the left lower leg. - The injury occurred one day prior to the visit during gardening when the patient stumbled on sharp shoots, leading to a skin tear. - He managed to clean the wound with some alcohol, but visibility and the extent of cleaning were limited. - The skin tear is reported without significant pain, fever, or signs of infection. - The patient has received previous assistance from nurses with supplies for home care after an unrelated hospital and rehabilitation stay. - The patient does not have a history of diabetes and has no other significant comorbidities affecting the wound. Physical Exam General: Cooperative, healthy appearing, comfortable, no acute distress and well developed Orientation: Patient oriented x3 Limitations: No limitations Head: Normal to inspection Ears: Hearing grossly normal bilaterally Nose: Normal External nose present Face and sinus: Normal facial exam Eyes: Appearance normal, both eyes and all related structures Neck: Normal visual inspection and Yes full ROM Respiratory: Normal respiratory effort and able to speak in complete sentences. Skin: as below, No rashes or lesions noted otherwise. Neuro: Patient oriented x3 Extremities: Normal to inspection except for the 1cm roundish skin tear on the left lower anterior leg, no surrounding erythema or warmth or drainage. some ecchymosis surrounding. [facility] Medical History Varicose veins of right lower extremity with inflammation Leg wound, right Decreased appetite Adult general medical exam Diarrhea Cellulitis Dysphagia Nausea Frequency of micturition Venous insufficiency COVID-19 virus infection Leukocytosis Normocytic anemia Hyponatremia Low sodium levels Hypercholesterolemia Prostate cancer Osteoarthritis, shoulder Surgical History History of radical prostatectomy Erectile dysfunction following urethral surgery Family History Father Diabetes Social History Household Members: Children Household Members Other:: daughter Housing: House Do you presently have visiting nurse or other home services: Yes ([facility]) Alcohol intake: never Patient Tobacco Use Status: Never used Tobacco e-Cigarette/Vaping Use: Never Used Second Hand Smoke Exposure: No Advance Directives Date on File: 08/24/21 service: No Current occupational status: retired 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812A - Laceration without foreign body, left lower leg, initial encounter Plan: The patient's left lower leg skin tear was cleaned with saline and iodine, and bacitracin was applied to prevent infection. Due to the tear's nature and timing of wound vs coming to the walk in clinic, suturing was not performed. A nonstick pad, gauze, and dressing were used, with instructions to change daily, keep the area clean, and monitor for worsening symptoms. The patient was advised to return if symptoms such as increased pain, redness, heat, or discharge appear, indicating potential need for antibiotics. Compliance with the wound care instructions was confirmed, supporting gradual, uncomplicated healing. Patient was informed and verbally consented to the use of an ambient scribe for clinic note documentation during this visit. Coding Level of Care Code Est Pt Level 3 (26597) Diagnoses Skin tear of left lower leg without complication, initial encounter S81.812A Encounter type: initial encounter
[2025-01-07 08:40] VITALS: BP 118/74; PULSE 62; O2SAT 98
== END 2025-01-07 09:07 | disposition home or self-care (01) ==
PROVIDERS: PCP Internal Medicine; Visit Provider Physician Assistant
DX: S81.812A Laceration without foreign body, left lower leg, initial encounter (principal)

== ENCOUNTER → 2025-01-07 08:14 | Outpatient (BNVA) | payer MEDICARE, SELFPAY | PROVIDERS: PCP Internal Medicine; Visit Provider Physician Assistant | DX: S81.812A Laceration without foreign body, left lower leg, initial encounter (principal) | CPT/HCPCS: 99212 ==

== ENCOUNTER 2025-02-22 14:23 | Outpatient (AMB) | payer MEDICARE, SELFPAY ==
[2025-02-22 14:27] VITALS: BP 118/80; PULSE 68; O2SAT 99; BMI 22.2
--- NOTE | 2025-02-22 14:27 | A.OFFPC_ITS ---
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 Required: No Accompanied by: Self / Same As Patient Allergies No Known Allergies Allergy (Mild, Verified 02/22/25 14:28) N/A Medication List - Last Reconciled 02/22/25 by Bobbi Harris MD albuterol sulfate 90 mcg/actuation 2 inhalations inhalation Q4-6H PRN ascorbate calcium (vitamin C) 500 mg PO DAILY aspirin (Adult Low Dose Aspirin) 81 mg PO DAILY chair, wheel (Wheel chair) 16 inch with elevating leg rest (manual) cholecalciferol (vitamin D3) 25 mcg PO DAILY comp.stocking,knee,long,medium As directed cyproheptadine 4 mg PO BEDTIME Lactobacillus rhamnosus GG (Culturelle) 1 cap PO DAILY meloxicam 7.5 mg PO DAILY polyethylene glycol 3350 (Miralax) 17 grams PO DAILY psyllium husk (Fiber Therapy Laxative (psyllium husk)) 1.04 grams (2 x 0.52 gram) PO DAILY PRN rosuvastatin 40 mg PO DAILY sennosides (senna) 8.6 mg PO BEDTIME sertraline 25 mg (1/2 x 50 mg) PO DAILY tolterodine ER 4 mg PO DAILY Tobacco use date assessed: 02/22/25 Fall risk assessment: No Falls in past year Last assessed Fall Risk: 02/22/25 Dental Screening Dental Screen Date: 02/22/25 Did you have a dental visit in the last 12 months?: Yes Did you have a dental problem in the last 6 months where you did not have access to dental care?: No Was dental information given to patient?: Patient has dentist [facility] Medical History Varicose veins of right lower extremity with inflammation Leg wound, right Decreased appetite Adult general medical exam Diarrhea Cellulitis Dysphagia Nausea Frequency of micturition Venous insufficiency COVID-19 virus infection Leukocytosis Normocytic anemia Hyponatremia Low sodium levels Hypercholesterolemia Prostate cancer Osteoarthritis, shoulder Surgical History History of radical prostatectomy Erectile dysfunction following urethral surgery Family History Father Diabetes Social History Household Members: Children Household Members Other:: daughter Housing: House Do you presently have visiting nurse or other home services: Yes ([facility]) Alcohol intake: never Patient Tobacco Use Status: Never used Tobacco e-Cigarette/Vaping Use: Never Used Second Hand Smoke Exposure: No Advance Directives Date on File: 08/24/21 service: No Current occupational status: retired 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 1. Little interest or pleasure in doing things: not at all 2. Feeling down, depressed, or hopeless: not at all 3. Trouble falling or staying asleep, or sleeping too much: not at all 4. Feeling tired or having little energy: not at all 5. Poor appetite or overeating: not at all 6. Feeling bad about yourself - or that you are a failure or have let yourself or your family down: not at all 7. Trouble concentrating on things, such as reading the newspaper or watching television: not at all 8. Moving or speaking so slowly that other people could have noticed. Or the opposite - being so fidgety or restless that you have been moving around a lot more than usual: not at all 9. Thoughts that you would be better off or of hurting yourself in some way: not at all Total score: 0 Depression Screening Interpretation: Negative Depression Screening Done: Yes Source: Developed by Drs. Warner Gandhi, Ava Machuca, Mt Calderon and colleagues, with an educational conrad from [employer]. Thrive Questionnaire Date Thrive assessed: 02/22/25 I am a: Patient What is your living situation today?: I have a steady place to live Within the past 12 months, did the food you bought not last and you didn't have the money to get more?: Never true Within the past 12 months, did you worry whether your food would run out before you got money to buy more?: Never true Do you have trouble paying for medicines?: No Do you have trouble getting transportation to medical appointments?: No Do you have trouble paying your heating and electricity bill?: No Do you have trouble taking care of your child, family member or friend?: No Do you have trouble with day-to-day activities such as bathing, preparing meals, shopping, managing finances, etc.?: No Are you currently unemployed and looking for a job?: No Are you interested in more education?: No Please select the resources that you would like help with: None Currently or been in a relationship where the following occur: No concerns reported THRIVE Score: 0 AUDIT C Alcohol Use Questionnaire (AUDIT-C) 1. How often do you have a drink containing alcohol?: Monthly or less 2. How many drinks containing alcohol do you have on a typical day when you are drinking?: 1 or 2 3. How often do you have six or more drinks on one occasion?: Never Total Score: 1 NESHA-7 AMB Questionnaire NESHA-7 Date NESHA - 7 assessed: 02/22/25 Feeling nervous, anxious, or on edge: 0 = Not at all Not being able to stop or control worryin = Not at all Worrying too much about different things: 0 = Not at all Trouble relaxin = Not at all Being so restless that it is hard to sit still: 0 = Not at all Becoming easily annoyed or irritable: 0 = Not at all Feeling afraid as if something awful might happen: 0 = Not at all Total NESHA-7 score (0-4 normal; 5-9 mild; 10-14 moderate; 15-21 severe): 0 Source: Developed by Drs. Warner Gandhi, Ava Machuca, Mt Calderon and colleagues, with an educational conrad from [employer]. Physical exam (Primary Care) Vital Signs: Last Vital Signs Pulse 68 02/22/25 14:27 BP 118/80 02/22/25 14:27 Pulse Ox 99 02/22/25 14:27 Oxygen Delivery Method Room Air 02/22/25 14:27 BMI result Body Mass Index 22.2 Tobacco/Smoking Status: Tobacco use Status Tobacco use date assessed 02/22/25 02/22/25 14:38 Patient Tobacco Use Status Never used Tobacco 02/22/25 14:38 e-Cigarette/Vaping Use Never Used 02/22/25 14:38 PHQ-9: PHQ-9 Score PHQ-9: Total score 0 02/22/25 14:58 Depression Screening Interpretation: Negative Thrive Assessment: Date of Thrive Assessment Date Thrive assessed 02/22/25 02/22/25 14:38 Currently or been in a relationship where the following occur: No concerns reported Const General: alert; No acute distress Eyes Conjunctivae: conjunctivae normal Resp Auscultation: clear to auscultation bilaterally Cardio Rate: regular rate Rhythm: regular rhythm GI Inspection: Yes normal to inspection Extrem General: Yes normal to inspection and No edema Coding Level of Care Code Est Pt Level 4 (83736) Complex EM visit Add On G2211 Diagnoses Hypercholesterolemia E78.00 Prostate cancer C61 Recurrent major depressive disorder, remission status unspecified F33.9 Active/Remission status: remission status unspecified Acute deep vein thrombosis (DVT) of popliteal vein of right lower extremity I82.431 Affected thrombotic vein of extremity: popliteal Chronicity: acute DVT location: lower extremity Laterality: right Slow transit constipation K59.01 Constipation type: slow transit constipation Assessment & Plan Assessment & Plan (1) Hypercholesterolemia: Code(s): E78.00 - Pure hypercholesterolemia, unspecified Category: Medical Plan: Avoid fried foods, chicken skin, eggs, butter margarine, pastries and meat. Be it pork or beef they have a lot of cholesterol on rosuvastatin 40 mg once a day (2) Prostate cancer: Comment: 2000 radical prostatectomy adjuvant radiotherapy for elevated PSA 2008 Code(s): C61 - Malignant neoplasm of prostate Category: Medical Plan: Continuing to monitor (3) Recurrent major depression: Comment: has good support. Code(s): F33.9 - Major depressive disorder, recurrent, unspecified Category: Medical Qualifiers: Active/Remission status: remission status unspecified Qualified Code(s): F33.9 - Major depressive disorder, recurrent, unspecified Plan: Continue with present medication sertraline 25 mg once a day (4) DVT (deep venous thrombosis): Comment: 2022 with IVC filter, 01/2024 No evidence of acute deep venous thrombosis in the right lower extremity with some persistent chronic changes in the distal popliteal vein. 2. 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 3. Left-sided Leal's cyst. Code(s): I82.409 - Acute embolism and thrombosis of unspecified deep veins of unspecified lower extremity Category: Medical Qualifiers: Affected thrombotic vein of extremity: popliteal Chronicity: acute DVT location: lower extremity Laterality: right Qualified Code(s): I82.431 - Acute embolism and thrombosis of right popliteal vein Plan: On aspirin. (5) Constipation: Code(s): K59.00 - Constipation, unspecified Category: Medical Qualifiers: Constipation type: slow transit constipation Qualified Code(s): K59.01 - Slow transit constipation Plan History of Present Illness The patient is an 89-year-old male presenting for a follow-up visit. He has a history of prostate cancer diagnosed in 2000, which has been managed over the years. Additionally, he has hypercholesterolemia, which is being treated with rosuvastatin 40 mg daily. The patient also has a history of major depression, for which he is taking sertraline 25 mg daily. He has been diagnosed with peripheral vascular disease and syndrome of inappropriate antidiuretic hormone secretion (SIADH). In 2022, he had a deep vein thrombosis (DVT) and was treated with an inferior vena cava filter. He follows up with orthopedics for bilateral shoulder impingement, with previous visits in November and August 2025. His blood work in September showed normal blood count, electrolytes, renal function, blood sugar, and liver function, with triglycerides noted at 192 mg/dL. The patient reports constipation, which has been discussed in terms of increasing fluid intake and maintaining activity. Health Maintenance Social History Review of Systems - Gastrointestinal: Reports constipation. Denies other gastrointestinal complaints. Physical Exam Results - Labs: Normal blood count, electrolytes, renal function, blood sugar, liver function. Triglycerides at 192 mg/dL. Plan The patient will continue on rosuvastatin 40 mg daily for hypercholesterolemia, with regular monitoring of lipid levels to assess efficacy. Sertraline 25 mg daily will be maintained for major depression, and the patient is advised to report any changes in mood or side effects. For constipation, the patient is encouraged to increase fluid intake and maintain physical activity to alleviate symptoms. Patient was informed and verbally consented to the use of an ambient scribe for clinic note documentation during this visit. Discussion Notes Patient Instructions - Continue taking rosuvastatin 40 mg daily. - Maintain sertraline 25 mg daily and report any mood changes. - Increase fluid intake and stay active to help with constipation. Medications: New psyllium husk (Fiber Therapy Laxative (psyllium husk)) 1.04 grams (2 x 0.52 gram) PO DAILY PRN 60 caps 2RF constipation K59.01 - Slow transit constipation
--- OUTSIDE RECORDS SUMMARY | 2025-02-22 16:39 | XMS_ITS | Patient Health Record ---
Author Organization [facility] Address [address] [place] [address] Care Team Providers Care Drawer In Name Role Phone Alan Anaya MD Primary Care Provider Davion Landry Unavailable [phone] Reason For Referral No Information Medications Medication SIG (Take, Route, Frequency, Duration) Notes Start Date End Date Status Advil 200 MG 1 tablet as needed O rally every 6 hrs 12/06/2013 Active Atorvastatin Calcium 20 MG 1 tablet Oral ly Once a day Active oxyBUTYnin Chloride ER 15 MG 2 Orally Active Problems Problem Type SNOMED Code ICD Code Onset Dates Problem Status W/U Status Risk Notes Problem Plantar fasciitis (449162928) Plantar Fasciitis (728.71) Active confirmed Problem 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, 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 confirmed Problem Pain in limb (46898075) Pain in Limb (729.5) Active confirmed Plan Of Treatment Pending Test Test Name Order Date X ray : Foot, right 2V 12/06/2013 Insurance Providers Payer Name Payer Address Payer Phone Subscriber Number Group Number Insured Name Patient Relationship to Insured Coverage Start Date Coverage End Date Medicare National [facility] [address] [place] [phone] [id number] Sukhwinder Maynard Self - patient is the insured [employer] [address] [place] [address] [id number] Sukhwinder Maynard Self - patient is the insured Medical (General) History Medical History History ICD Code prostate cancer Surgical History Surgery Date(Month/Year) prostate cancer 2000 AUS, AND BOTOX 100 UNITS INJECTED INTO B LADDER 12/31/13
== END 2025-02-22 15:09 | disposition home or self-care (01) ==
LOC: HO.HMCH 14:23
PROVIDERS: PCP Internal Medicine; Visit Provider Internal Medicine
DX: E78.00 Pure hypercholesterolemia, unspecified (principal); F33.9 Major depressive disorder, recurrent, unspecified; I82.431 Acute embolism and thrombosis of right popliteal vein; Z85.46 Personal history of malignant neoplasm of prostate; K59.01 Slow transit constipation

== ENCOUNTER → 2025-02-22 14:23 | Outpatient (BNVA) | payer MEDICARE, SELFPAY | PROVIDERS: PCP Internal Medicine; Visit Provider Internal Medicine | DX: E78.00 Pure hypercholesterolemia, unspecified (principal); C61 Malignant neoplasm of prostate; F33.9 Major depressive disorder, recurrent, unspecified; I82.431 Acute embolism and thrombosis of right popliteal vein; K59.01 Slow transit constipation | CPT/HCPCS: 99212 ==

== ENCOUNTER 2025-03-14 17:50 | Emergency (ER) | payer MEDICARE, SELFPAY ==
--- NOTE | ~2025-03-14 | US_ITS ---
CLINICAL HISTORY: asymmetric swelling, discoloration, hx DVT Left lower extremity venous ultrasound. Prior study 01/15/2024. Findings: There is occlusive thrombus in the superficial femoral and popliteal veins extending below the knee. The common femoral vein is patent. Impression: Positive for DVT in the left lower extremity. This document has been electronically signed by: Isac Calvin MD on 03/14/2025 19:49:52
[2025-03-14 18:18] VITALS: BP 105/52; PULSE 72; RESP 16; TEMP 36.7; O2SAT 99; BMI 22.8
--- NOTE | 2025-03-14 18:19 | ED.EXTPRO ---
HPI - Extremity Problem General Chief complaint: Extremity Problem Stated complaint: ?DVT Time Seen by Provider: 03/14/25 20:35 Source: patient Limitations: no limitations History of Present Illness ED Provider: Kristy Andrade PA-C HPI Narrative: 89-year-old male with a history of prior right-sided DVT no longer on Eliquis, SIADH, peripheral vascular disease, hyperlipidemia, asthma, constipation who presents with left lower extremity swelling of unclear duration. Denies chest pain, shortness of breath, unintentional weight gain. Denies fever, or new redness of the lower extremity. Related Data Home Medications ?Medication ?Instructions ?Recorded ?Confirmed cholecalciferol (vitamin D3) 25 25 mcg PO DAILY 01/17/21 02/22/25 mcg (1,000 unit) capsule albuterol sulfate 90 mcg/actuation 2 inh inhalation Q4-6H PRN Wheezing 02/13/24 02/22/25 breath activated powder inhaler ascorbate calcium (vitamin C) 500 500 mg PO DAILY 02/13/24 02/22/25 mg tablet sennosides 8.6 mg capsule (senna) 8.6 mg PO BEDTIME 02/13/24 02/22/25 Previous Rx's ?Medication ?Instructions ?Recorded aspirin 81 mg tablet,delayed 81 mg PO DAILY #14 tabs 11/15/20 release (Adult Low Dose Aspirin) comp.stocking,knee,long,medium #2 ea 08/13/22 polyethylene glycol 3350 17 17 g PO DAILY #510 grams 04/23/23 gram/dose oral powder (Miralax) Lactobacillus rhamnosus GG 15 1 cap PO DAILY #90 caps 08/04/23 billion cell sprinkle capsule (Culturelle) chair, wheel (Wheel chair) #1 ea 08/05/23 cyproheptadine 4 mg tablet 4 mg PO BEDTIME #90 tabs 08/26/24 rosuvastatin 40 mg tablet 40 mg PO DAILY #30 tabs 08/27/24 sertraline 50 mg tablet 25 mg (1/2 x 50 mg) PO DAILY #90 11/05/24 tabs tolterodine 4 mg capsule,extended 4 mg PO DAILY #90 caps 12/01/24 release 24 hr meloxicam 7.5 mg tablet 7.5 mg PO DAILY #30 tabs 12/21/24 psyllium husk 0.52 gram capsule 1.04 g (2 x 0.52 gram) PO DAILY 02/22/25 (Fiber Therapy Laxative (psyllium PRN constipation #60 caps husk)) apixaban 5 mg (74 tabs) tablets in 5 mg PO BID #74 ea 03/14/25 a dose pack (Eliquis DVT-PE Treat 30D Start) Allergies Allergy/AdvReac Type Severity Reaction Status Date / Time No Known Allergies Allergy Mild N/A Verified 03/14/25 18:22 Review of Systems Review of Systems: Yes all other systems are reviewed and are negative Constitutional: Constitutional: Denies fatigue and Denies fever(s) Cardiovascular: Cardiovascular: Denies chest pain, Reports leg ulcers, Reports leg edema and Denies dyspnea on exertion Respiratory: Respiratory: Denies dyspnea on exertion Musculoskeletal: Musculoskeletal: Denies arthralgias and Denies joint swelling Endocrine: Endocrine: Denies fatigue PMF Past Medical History Attestation statement: The following information was validated with the patient. Medical History Varicose veins of right lower extremity with inflammation Leg wound, right Decreased appetite Adult general medical exam Diarrhea Cellulitis Dysphagia Nausea Frequency of micturition Venous insufficiency COVID-19 virus infection Leukocytosis Normocytic anemia Hyponatremia Low sodium levels Hypercholesterolemia Prostate cancer Osteoarthritis, shoulder Surgical History History of radical prostatectomy Erectile dysfunction following urethral surgery Family History Family History Father Diabetes Social History Social History Household Members: Children Household Members Other:: daughter Housing: House Do you presently have visiting nurse or other home services: Yes ([facility]) Alcohol intake: never Patient Tobacco Use Status: Never used Tobacco e-Cigarette/Vaping Use: Never Used Second Hand Smoke Exposure: No Advance Directives: Yes Advance Directives on File: Yes Advance Directives Date on File: 08/24/21 Do you have a plan to hurt others: No Plan service: No Current occupational status: retired 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 Skin: Other: Warm dry no rash Neuro: Other: Antalgic gait General: patient oriented x3, no focal motor deficits and CN's II-XI intact bilaterally Extrem: Other: The edema noted over the left lower extremity, both lower extremities are hyperpigmented, the skin is thickened, consistent with the his known peripheral vascular disease, subtle overlying pink hue of the left lower extremity Psych: Other: Cooperative Course Course Course Narrative: This is an RME performed by Mckayla Beauchamp, SOFTWARE TEST ENGINEER: Additional HPI, ROS, PE not included below will be deferred to primary provider. Patient is an 89-year-old male who presents emergency department for evaluation, ambulatory with steady gait and use of a cane, complaining of LLE swelling, discoloration to toe nails, redness to great to an pink toe, denies pain or cold sensation to the foot. On exam has 1+ DP/PT pulse, 2+ pitting edema, LE discoloration/ ecchymosis, reportedly chronic. Admits to history of bilateral DVT, most recent to the right approximately 1 year ago is not currently on anticoagulants. Plan: Serum labs, venous duplex ultrasound Medical Decision Making Medical Decision Making MDM Narrative: 89-year-old male with a history of prior right-sided DVT no longer on Eliquis, SIADH, peripheral vascular disease, hyperlipidemia, asthma, constipation who presents with left lower extremity swelling of unclear duration. Denies chest pain, shortness of breath, unintentional weight gain. Denies fever, or new redness of the lower extremity. Problem: Age, prior DVT, peripheral vascular disease History: Per patient I have considered the following differential diagnoses: DVT, cellulitis, fracture, dislocation, Plan: Screening labs including Doppler study ordered from triage, the patient does have a DVT. The patient has no mechanism of injury to suggest fracture or dislocation to account for the swelling, x-rays not indicated. He has not had fevers, he has no white count to suggest cellulitis. I have independently reviewed the following tests: Labs: No leukocytosis, not anemic, no electrolyte abnormality noted Ultrasound left lower extremity Doppler study:CLINICAL HISTORY: asymmetric swelling, discoloration, hx DVT Left lower extremity venous ultrasound. Prior study 01/15/2024. Findings: There is occlusive thrombus in the superficial femoral and popliteal veins extending below the knee. The common femoral vein is patent. Impression: Positive for DVT in the left lower extremity. Lab Data 03/14/25 18:43 03/14/25 18:43 Labs: Lab Results 03/14/25 Range/Units 18:43 WBC 9.1 (4.8-10.8) X10*3/uL RBC 3.93 L (4.60-5.80) X10*6/uL Hgb 12.7 L (14.0-18.0) g/dl Hct 37.4 L (42.0-52.0) % MCV 95.2 (80.0-98.0) fL MCH 32.3 (27.0-33.0) pg MCHC 34.0 (31.0-36.0) g/dl RDW 13.6 (11.0-16.0) % Plt Count 182 (160-400) X10*3/uL MPV 8.7 L (9.4-12.4) fL Immature Gran % (Auto) 0.6 H (0.0-0.4) % Neut % (Auto) 68.6 (45-73) % Lymph % (Auto) 19.2 L (20-40) % Howell % (Auto) 7.7 (2-11) % Eos % (Auto) 3.1 (0-4) % Baso % (Auto) 0.8 (0-2) % Lymph # (Auto) 1.7 (1.2-4.9) X10*3/uL Howell # (Auto) 0.7 (0.1-1.2) X10*3/uL Eos # (Auto) 0.3 (0.0-0.4) X10*3/uL Baso # (Auto) 0.1 (0.0-0.2) X10*3/uL Abs Immat Gran (auto) 0.05 H (0.00-0.03) X10*3/uL Absolute Neuts (auto) 6.2 (2.0-8.3) x10*3/uL Absolute Nucleated RBC 0.000 (0.0-0.012) X10*3/uL Nucleated RBC % (auto) 0.0 (0.0-0.2) /100WBC PT 11.4 (10.9-12.4) SEC INR 1.0 (0.9-1.1) Sodium 136 (135-145) mmol/L Potassium 4.3 (3.3-5.1) mmol/L Chloride 107 (96-108) mmol/L Carbon Dioxide 26 (22-29) mmol/L Anion Gap 7 L (12-20) BUN 19 H (9-16) mg/dL Creatinine 0.84 (0.5-1.4) mg/dL Estim Creat Clear Calc 60.8 Estimated GFR > 60 Random Glucose 130 H (60-115) mg/dL Calcium 9.8 (8.4-10.2) mg/dL Total Bilirubin 0.3 (0.0-1.0) mg/dL AST 21 (5-37) U/L ALT 8 (0-40) U/L Alkaline Phosphatase 72 (39-117) U/L B-Natriuretic Peptide 19 (<100) pg/mL Total Protein 6.8 (6.5-8.0) g/dL Albumin 3.5 (3.5-5.0) g/dL Discharge Plan Discharge Clinical Impression: Acute deep vein thrombosis (DVT) of left lower extremity Patient Disposition: Home, Self-Care Instructions: Deep Vein Thrombosis (ED), Blood Thinners (ED) Additional Instructions: You were found to have a blood clot in the left lower extremity. This is called a DVT. See home care instructions. You need to take the Eliquis as directed. I am sending a prescription to your pharmacy. Follow up with your primary care provider for subsequent prescriptions of the Eliquis. Prescriptions: New Eliquis DVT-PE Treat 30D Start 5 mg (74 tabs) tablets,dose pack 5 mg PO BID Qty: 74 0RF Rx Instructions: Take per package instructions No Action aspirin [Adult Low Dose Aspirin] 81 mg tablet,delayed release (DR/EC) 81 mg PO DAILY Qty: 14 0RF (DME) Wheel chair Kit See Rx Instructions .Route Qty: 1 0RF Rx Instructions: 16 inch with elevating leg rest (manual) cyproheptadine 4 mg tablet 4 mg PO BEDTIME Qty: 90 0RF rosuvastatin 40 mg tablet 40 mg PO DAILY Qty: 30 3RF sertraline 50 mg tablet 25 mg PO DAILY Qty: 90 0RF tolterodine 4 mg capsule,extended release 24hr 4 mg PO DAILY Qty: 90 0RF cholecalciferol (vitamin D3) 25 mcg (1,000 unit) capsule 25 mcg PO DAILY (DME) comp.stocking,knee,long,medium Misc See Rx Instructions .Route Qty: 2 0RF Rx Instructions: As directed Culturelle 15 billion cell capsule, sprinkle 1 cap PO DAILY Qty: 90 2RF ascorbate calcium (vitamin C) 500 mg tablet 500 mg PO DAILY albuterol sulfate 90 mcg/actuation aerosol powdr breath activated 2 inh inhalation Q4-6H PRN (Reason: Wheezing) senna 8.6 mg capsule 8.6 mg PO BEDTIME polyethylene glycol 3350 [Miralax] 17 gram/dose powder 17 g PO DAILY Qty: 510 2RF meloxicam 7.5 mg tablet 7.5 mg PO DAILY Qty: 30 2RF psyllium husk [Fiber Therapy Laxative (husk)] 0.52 gram capsule 1.04 g PO DAILY PRN (Reason: constipation) Qty: 60 2RF Print Language: Swedish
[2025-03-14 18:54] LABS: MANUAL DIFF FLAG NO
[2025-03-14 18:58] LABS: Hematocrit 37.4 % (42.0-52.0); Hemoglobin 12.7 g/dl (14.0-18.0); Imm Gran Abs Auto 0.05 X10*3/uL (0.00-0.03); Imm Gran Pct Auto 0.6 % (0.0-0.4); Lymphocytes Absolute Auto 1.7 X10*3/uL (1.2-4.9); Mean Corpuscular HGB Conc 34.0 g/dl (31.0-36.0); Mean Corpuscular Hemoglobin 32.3 pg (27.0-33.0); Mean Corpuscular Volume 95.2 fL (80.0-98.0); NRBC Abs Auto 0.000 X10*3/uL (0.0-0.012); NRBC Pct Auto 0.0 /100WBC (0.0-0.2); Platelet Count 182 X10*3/uL (160-400); Red Blood Count 3.93 X10*6/uL (4.60-5.80); White Blood Count 9.1 X10*3/uL (4.8-10.8)
[2025-03-14 19:04] LABS: INTERNATIONAL NORM RATIO 1.0 (0.9-1.1); Prothrombin Time 11.4 SEC (10.9-12.4)
[2025-03-14 19:15] LABS: Alanine Aminotransferase 8 U/L (0-40); Albumin Level 3.5 g/dL (3.5-5.0); Alkaline Phosphatase 72 U/L (39-117); Anion Gap 7 (12-20); Aspartate Amino Transferase 21 U/L (5-37); Blood Urea Nitrogen 19 mg/dL (9-16); Calcium 9.8 mg/dL (8.4-10.2); Carbon Dioxide 26 mmol/L (22-29); Chloride 107 mmol/L (96-108); Creatinine Clr Calc Pharmacy 60.8; Estimated Glomerular Filt Rate > 60; Potassium 4.3 mmol/L (3.3-5.1); Sodium 136 mmol/L (135-145); Total Protein 6.8 g/dL (6.5-8.0)
[2025-03-14 19:18] LABS: B Type Natriuretic Peptide 19 pg/mL (<100)
[2025-03-14 20:38] VITALS: BP 151/79; PULSE 66; RESP 16; TEMP 36.6; O2SAT 95
[2025-03-14 21:52] VITALS: BP 151/79; PULSE 66; RESP 16; TEMP 36.6; O2SAT 95
== END 2025-03-14 21:52 | disposition home or self-care (01) ==
PROVIDERS: Nurse Practitioner Family; Emergency Provider Emergency Medicine; PCP Internal Medicine
DX: I82.4Z2 Acute embolism and thrombosis of unspecified deep veins of left distal lower extremity (principal); R06.02 Shortness of breath; R60.0 Localized edema; Z79.899 Other long term (current) drug therapy
CPT/HCPCS: 36415; 80053; 83880; 85025; 85610; 93971; 99283; 99284

== ENCOUNTER → 2025-03-14 18:22 | Outpatient (BNV) | payer MEDICARE, SELFPAY | PROVIDERS: PCP Internal Medicine; Visit Provider Radiology Diagnostic Radiology | DX: I82.402 Acute embolism and thrombosis of unspecified deep veins of left lower extremity (principal) | CPT/HCPCS: 93971 ==

== ENCOUNTER 2025-03-23 14:09 | Outpatient (AMB) | payer MEDICARE, SELFPAY ==
--- NOTE | 2025-03-23 14:14 | MHC.PC.OV ---
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: No Accompanied by: Self / Same As Patient Allergies No Known Allergies Allergy (Mild, Verified 03/23/25 14:20) N/A Tobacco use date assessed: 02/22/25 Fall risk assessment: No Falls in past year Last assessed Fall Risk: 03/23/25 Dental Screening Dental Screen Date: 02/22/25 [facility] Medical History Varicose veins of right lower extremity with inflammation Leg wound, right Decreased appetite Adult general medical exam Diarrhea Cellulitis Dysphagia Nausea Frequency of micturition Venous insufficiency COVID-19 virus infection Leukocytosis Normocytic anemia Hyponatremia Low sodium levels Hypercholesterolemia Prostate cancer Osteoarthritis, shoulder Surgical History History of radical prostatectomy Erectile dysfunction following urethral surgery Family History Father Diabetes Social History Household Members: Children Household Members Other:: daughter Housing: House Do you presently have visiting nurse or other home services: Yes ([facility]) Alcohol intake: never Patient Tobacco Use Status: Never used Tobacco e-Cigarette/Vaping Use: Never Used Second Hand Smoke Exposure: No Advance Directives Date on File: 08/24/21 service: No Current occupational status: retired 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 1. Little interest or pleasure in doing things: not at all 2. Feeling down, depressed, or hopeless: not at all 3. Trouble falling or staying asleep, or sleeping too much: not at all 4. Feeling tired or having little energy: not at all 5. Poor appetite or overeating: not at all 6. Feeling bad about yourself - or that you are a failure or have let yourself or your family down: not at all 7. Trouble concentrating on things, such as reading the newspaper or watching television: not at all 8. Moving or speaking so slowly that other people could have noticed. Or the opposite - being so fidgety or restless that you have been moving around a lot more than usual: not at all 9. Thoughts that you would be better off or of hurting yourself in some way: not at all Total score: 0 Source: Developed by Drs. Warner Gandhi, Ava Machuca, Mt Calderon and colleagues, with an educational conrad from [employer]. Thrive Questionnaire Date Thrive assessed: 02/22/25 I am a: Patient What is your living situation today?: I have a steady place to live Within the past 12 months, did the food you bought not last and you didn't have the money to get more?: Never true Within the past 12 months, did you worry whether your food would run out before you got money to buy more?: Never true Do you have trouble paying for medicines?: I choose not to answer this question Do you have trouble getting transportation to medical appointments?: I choose not to answer this question Do you have trouble paying your heating and electricity bill?: I choose not to answer this question Do you have trouble taking care of your child, family member or friend?: I choose not to answer this question Do you have trouble with day-to-day activities such as bathing, preparing meals, shopping, managing finances, etc.?: I choose not to answer this question Are you currently unemployed and looking for a job?: Yes Are you interested in more education?: No Please select the resources that you would like help with: None Currently or been in a relationship where the following occur: No concerns reported THRIVE Score: 0 AUDIT C Alcohol Use Questionnaire (AUDIT-C) 1. How often do you have a drink containing alcohol?: Never Total Score: 0 NESHA-7 AMB Questionnaire NESHA-7 Date NESHA - 7 assessed: 02/22/25 Feeling nervous, anxious, or on edge: 0 = Not at all Not being able to stop or control worryin = Not at all Worrying too much about different things: 0 = Not at all Trouble relaxin = Not at all Being so restless that it is hard to sit still: 0 = Not at all Becoming easily annoyed or irritable: 0 = Not at all Feeling afraid as if something awful might happen: 0 = Not at all Total NESHA-7 score (0-4 normal; 5-9 mild; 10-14 moderate; 15-21 severe): 0 Source: Developed by Drs. Warner Gandhi, Ava Machuca, Mt Calderon and colleagues, with an educational conrad from [employer]. Physical exam (Primary Care) Vital Signs: Last Vital Signs Pulse 67 03/23/25 14:16 BP 108/66 03/23/25 14:16 Pulse Ox 97 03/23/25 14:16 Oxygen Delivery Method Room Air 03/23/25 14:16 BMI result Body Mass Index 22.2 Tobacco/Smoking Status: Tobacco use Status Tobacco use date assessed 02/22/25 03/23/25 14:25 Patient Tobacco Use Status Never used Tobacco 03/23/25 14:25 e-Cigarette/Vaping Use Never Used 03/23/25 14:25 PHQ-9: PHQ-9 Score PHQ-9: Total score 0 03/23/25 14:38 Thrive Assessment: Date of Thrive Assessment Date Thrive assessed 02/22/25 03/23/25 14:25 Currently or been in a relationship where the following occur: No concerns reported Const General: alert; No acute distress Eyes Conjunctivae: conjunctivae normal Resp Auscultation: clear to auscultation bilaterally Cardio Rate: regular rate Rhythm: regular rhythm GI Inspection: Yes normal to inspection Extrem General: Yes normal to inspection and No edema Coding Level of Care Code Est Pt Level 4 (86482) Complex EM visit Add On G2211 Diagnoses Acute deep vein thrombosis (DVT) of popliteal vein of right lower extremity I82.431 Affected thrombotic vein of extremity: popliteal Chronicity: acute DVT location: lower extremity Laterality: right Hypercholesterolemia E78.00 Recurrent major depressive disorder, remission status unspecified F33.9 Active/Remission status: remission status unspecified Bilateral shoulder pain M25.511; M25.512 Assessment & Plan Assessment & Plan (1) DVT (deep venous thrombosis): Comment: 2022 with IVC filter, 01/2024 No evidence of acute deep venous thrombosis in the right lower extremity with some persistent chronic changes in the distal popliteal vein. 2. 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 3. Left-sided Leal's cyst. Code(s): I82.409 - Acute embolism and thrombosis of unspecified deep veins of unspecified lower extremity Category: Medical Qualifiers: Affected thrombotic vein of extremity: popliteal Chronicity: acute DVT location: lower extremity Laterality: right Qualified Code(s): I82.431 - Acute embolism and thrombosis of right popliteal vein Plan: Patient is back on anticoagulation as there is a left lower DVT. Patient has had a history of right DVT and was taken off anticoagulation after having an intra-abdominal hematoma diagnosis but later on found to have an abscess. Patient has had IVC filter placed.. PAtient will be on anticoagulation for an exetended amount of time. Did call physical therapy patient is still can go for therapy. (2) Hypercholesterolemia: Code(s): E78.00 - Pure hypercholesterolemia, unspecified Category: Medical Plan: Avoid fried foods, chicken skin, eggs, butter margarine, pastries and meat. Be it pork or beef they have a lot of cholesterol LDL goal of less than 130 and triglyceride of less than 150 on rosuvastatin 40 mg once a day (3) Recurrent major depression: Comment: has good support. Code(s): F33.9 - Major depressive disorder, recurrent, unspecified Category: Medical Qualifiers: Active/Remission status: remission status unspecified Qualified Code(s): F33.9 - Major depressive disorder, recurrent, unspecified Plan: Continue with sertraline. (4) Bilateral shoulder pain: Code(s): M25.511 - Pain in right shoulder; M25.512 - Pain in left shoulder Category: Medical Plan: My go for physical therapy and exercises just as long as no machine squeezing the legs or no massaging of legs Orders: Referrals Hematology & Oncology Referral I82.431 - Acute embolism and thrombosis of right popliteal vein Patient Instructions: History of Present Illness The patient is an 89-year-old male presenting for follow-up of multiple medical conditions including deep vein thrombosis and hypercholesterolemia. The patient has a history of prostate cancer diagnosed in 2000, which has been managed over the years. He also has hypercholesterolemia, which is being managed with rosuvastatin 40 mg once a day, aiming for an LDL goal of less than 130 mg/dL and triglycerides less than 150 mg/dL. The patient has a history of depression, for which he is continuing treatment with sertraline. Peripheral vascular disease is part of his medical history, along with a history of deep vein thrombosis (DVT). In 2022, he experienced a DVT in the right lower extremity and was placed on anticoagulation therapy, which was later discontinued due to an intra-abdominal hematoma that was found to be an abscess. He had an inferior vena cava (IVC) filter placed as a precaution. Recently, a repeat ultrasound in March showed a left lower extremity DVT, and he is now back on anticoagulation therapy with Eliquis. The patient has anemia with hemoglobin at 12.7 g/dL and hematocrit at 37.4%, which is a chronic issue. His blood work also showed normal platelet count and electrolytes, with renal function being normal. Blood sugar was elevated at 130 mg/dL, but this was not a fasting test. Cholesterol levels were noted with LDL at 118 mg/dL and triglycerides at 192 mg/dL. The patient reports difficulty with shoulder movement due to impingement syndrome, affecting both shoulders. He has been receiving cortisone injections, which provide temporary relief. Health Maintenance Social History - Exercise: Patient attends physical training sessions at [facility]. Review of Systems - Cardiovascular: Denies shortness of breath. - Musculoskeletal: Reports difficulty moving arms due to shoulder impingement. Physical Exam Results - Labs: Hemoglobin 12.7 g/dL, Hematocrit 37.4%, normal platelet count, normal electrolytes, elevated blood sugar at 130 mg/dL (non-fasting), LDL 118 mg/dL, triglycerides 192 mg/dL. - Imaging: Ultrasound in March showed left lower extremity DVT. Plan The patient will continue on anticoagulation therapy with Eliquis for the management of the left lower extremity DVT. Regular monitoring of kidney function is advised due to the use of blood thinners. For hypercholesterolemia, the patient will continue with rosuvastatin 40 mg daily, aiming for an LDL goal of less than 130 mg/dL and triglycerides less than 150 mg/dL. The patient is advised to follow up with hematology/oncology for ongoing management of his conditions. The patient is encouraged to continue physical therapy for shoulder impingement, with caution advised against any activities that may exacerbate his condition. Cortisone injections may be continued for temporary relief, but long-term use is discouraged due to potential side effects. Patient was informed and verbally consented to the use of an ambient scribe for clinic note documentation during this visit. Discussion Notes I discussed with the patient the importance of continuing anticoagulation therapy to prevent further thrombotic events and the need for regular monitoring of kidney function due to the blood thinner. We reviewed the management plan for hypercholesterolemia, emphasizing the goals for LDL and triglyceride levels. I advised the patient to continue physical therapy for shoulder impingement and discussed the temporary nature of relief from cortisone injections, highlighting the risks of long-term steroid use. Patient Instructions - Continue taking Eliquis as prescribed. - Monitor kidney function regularly. - Continue rosuvastatin 40 mg daily for cholesterol management. - Attend follow-up appointments with hematology/oncology. - Engage in physical therapy for shoulder impingement, avoiding activities that may worsen the condition. - Be cautious of long-term use of cortisone injections.
[2025-03-23 14:16] VITALS: BP 108/66; PULSE 67; O2SAT 97; BMI 22.2
--- OUTSIDE RECORDS SUMMARY | 2025-03-23 14:54 | XMS_ITS | Patient Health Record ---
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 [address] [place] [phone] [id number] Sukhwinder Maynard Self - patient is the insured [employer] [address] [place] [address] [id number] Sukhwinder Maynard Self - patient is the insured Medical (General) History Medical History History ICD Code prostate cancer Surgical History Surgery Date(Month/Year) prostate cancer 2000 AUS, AND BOTOX 100 UNITS INJECTED INTO B LADDER 12/31/13
--- OUTSIDE RECORDS SUMMARY | 2025-03-23 14:54 | XMS_ITS | Patient Health Record ---
Author Organization [facility] Address [address] [place] [address] Care Team Providers Care Lead Inspector Name Role Phone Po Bobbi TROY Primary Care Provider Warner Sinclair [phone] Allergies No Known Allergies Reason For Referral [...] W/U Status Risk Notes Problem Weight loss (606011953) Weight loss (R63.4) Active confirmed Problem Early satiety (641930636) Early satiety (R68.81) Active confirmed Problem Barium swallow abnormal (238431588) Abnormal barium swallow (R93.3) Active confirmed Plan Of Treatment Future Test Test Name Order Date COLONOSCOPY 07/09/2012 UPPER GI ENDOSCOPY BALLOOON DILATION OF ESOPH 05/02/2022 Insurance Providers Payer Name Payer Address Payer Phone Subscriber Number Group Number Insured Name Patient Relationship to Insured Coverage Start Date Coverage End Date MEDICARE OF [place] [address] [place] [address] [id number] JOHN MINAYA Self - patient is the insured MED[employer] ATTN CLAIMS [address] [place] [address] [id number] JOHN MINAYA Self - patient is the insured Medical (General) History Medical History History ICD Code Colonoscopy was in 11-07-2008 with removal of small tubular adenomas Colon and rectal polyps-tubular adenomas Hyperlipidemia Denies SC,DM,CVA,Lung disease,renal dise ase Prostate cancer with prostat [...]
--- OUTSIDE RECORDS SUMMARY | 2025-03-23 14:54 | XMS_ITS | Data Portability ---
Author Organization [place] [facility] Address [address] [place] [address] Care Team Providers Care Mill Tender Warm Up Name Role Phone ANTHONYSHERLYN Primary Care Provider Assessment Encounter Date Assessment Date Assessment LastModified by Organization Details LastModified Time 02/12/2024 02/12/2024 I am seeing the patient today under the supervision of Dr. Parks who was available but who did not see the patient. Patient comes to the office with known Bi-lateral shoulder impingement syndrome. The patient has done well with conservative management for their shoulder pain. Has had increasing discomfort over the past several weeks without injury. Pain is generalized about the shoulder. Off and on discomfort is noted at night. PFMSH and ROS has been reviewed, updated, and signed by me and is located in the patient's chart. PHYSICAL FINDINGS: The patient is well appearing, in no apparent distress, alert and oriented to person, place and time. Gait is symmetric. No significant swelling, warmth or erythema about either shoulder. There is mild tenderness to palpation about the shoulder and AC joint. Active range of motion of the shoulder is near full with mild to moderate pain through mid range manipulations. 4/5 strength of the shoulder, but the rotator cuff seems to fire well. Good stability of the shoulder. Peripheral, vascular, lymphatic examination, skin, neurologic coordination, reflexes, sensation are within normal limits. ASSESSMENT: Impingement SyndromeBi-late ral shoulder. PLAN: The patient has done well with conservative management in regards to the Bi-lateral shoulder. We discussed the role of medications, physical therapy, injections, and potential surgical interventions depending on conservative outcome Continued conservative management recommended. Along with cortisone injection today. Please see procedure note. Patient will follow up as directed. tatianna Not available 02/12/2024 10:42:17 05/26/2024 05/26/2024 I am seeing the patient today under the supervision of Dr. Parks who was available but who did not see the patient. Patient comes to the office with known Bi-lateral shoulder impingement syndrome. The patient has done well with conservative management for their shoulder pain. Has had increasing discomfort over the past several weeks without injury. Pain is generalized about the shoulder. Off and on discomfort is noted at night. PFMSH and ROS has been reviewed, updated, and signed by me and is located in the patient's chart. PHYSICAL FINDINGS: The patient is well appearing, in no apparent distress, alert and oriented to person, place and time. Gait is symmetric. No significant swelling, warmth or erythema about either shoulder. There is mild tenderness to palpation about the shoulder and AC joint. Active range of motion of the shoulder is near full with mild to moderate pain through mid range manipulations. 4/5 strength of the shoulder, but the rotator cuff seems to fire well. Good stability of the shoulder. Peripheral, vascular, lymphatic examination, skin, neurologic coordination, reflexes, sensation are within normal limits. ASSESSMENT: Impingement SyndromeBi-late ral shoulder. PLAN: The patient has done well with conservative management in regards to the Bi-lateral shoulder. We discussed the role of medications, physical therapy, injections, and potential surgical interventions depending on conservative outcome Continued conservative management recommended. Along with cortisone injection today. Please see procedure note. Patient will follow up as directed. tatianna Not available 05/26/2024 08:54:34 08/25/2024 08/25/2024 I am seeing the patient today under the supervision of Dr Parks who was available but who did not see the patient. tatianna Not available 08/25/2024 08:45:15 11/24/2024 11/24/2024 I am seeing the patient today under the supervision of Dr Parks who was available but who did not see the patient. daina Not available 11/24/2024 09:06:50 02/23/2025 02/23/2025 I am seeing the patient today under the supervision of Dr Parks who was available but who did not see the patient. [email or web address] Not available 02/23/2025 09:03:39 Plan of Treatment Reminders Order Date Submit Date Provider Last Modified By Organization Details Last Modified Time Details Appointments RECHECK 15 2024 11:00A M Piotr Edwards PA-C Not available Not available Not available [...] Recorded Time Bilateral osteoarthri tis of knees 3874491196128 07 Active 2023 Андрей Blackburn PA-C [address], [place], [address], [facility] 4 07:28:24 Impingement syndrome of left shoulder region 9358303581843 04 Active 2023 Андрей Blackburn PA-C [address], [place], [address], [facility] 4 07:50:40 Impingement syndrome of right shoulder region 1852957016885 02 Active 2023 Андрей Blackburn PA-C [address], [place], [address], [facility] 4 07:50:40 Problem Notes None recorded. Procedures Surgical History Date Name Laterality Status Provider Name and Address Organization Details Recorded Time 5 JZShoulder INJ Jean completed Андрей Blackburn PA-C [address], [place], [address], [facility] 02/23/2025 09:03:31 5 JZShoulder INJ Jean completed Андрей Blackburn PA-C [address], [place], [address], [facility] 11/24/2024 09:06:40 4 JZShoulder INJ Jean completed Андрей Blackburn PA-C [address], [place], [address], [facility] 08/25/2024 08:45:08 4 JZShoulder INJ Jean completed Андрей Blackburn PA-C [address], [place], [address], [facility] 05/26/2024 08:54:18 4 JZShoulder INJ Jean completed Андрей Blackburn PA-C [address], [place], [address], [facility] 02/12/2024 07:50:39 Imaging Results None recorded. Procedure Notes None recorded. Medical Equipment None Reported. Allergies No known drug allergies Medications Name Sig Start Date Stop Date Status Note LastModified by Organization Details LastModified Time amoxicillin 500 mg capsule TAKE 1 CAPSULE BY MOUTH THREE TIMES DAILY FOR 10 DAYS 02/23 completed Not Available Not Available Not Available tolterodine ER 4 mg capsule,ext ended release 24 hr TAKE 1 CAPSULE BY MOUTH DAILY active Not Available Not Available No t Available cyproheptad ine 4 mg tablet TAKE 1 TABLET BY MOUTH AT BEDTIME active Not Available Not Available No t Available meloxicam 7.5 mg tablet TAKE 1 TABLET BY MOUTH [...] unit/g-dexa meth 0.1 % eye oint AFTER A HOT PACK AND MASSAGE APPLY A 1/4 INCH STRIP TO LEFT LOWER EYELID 3 TO 4 [...] and Address Organization Details Last Updated DateTime 11/24/2024 177.8 cm 21.5 kg/m2 61790.86 g [facility] 11/24/2024 09:02:04 Date Recorded Body height Body temperature Provider N asad and Address Organization Details Last Updated DateTime 02/12/2024 177.8 cm 97.7 [degF] Sheila [facility]Mres [facility] 02/12/2024 10:39:31 Date Recorded Body height Body mass index (BMI) Body weight Provider Name and Address Organization Details Last Updated DateTime 02/23/2025 177.8 cm 21.5 kg/m2 86456.86 g Kermit [facility] 02/23/2025 08:56:44 Date Recorded Body height Body mass index (BMI) Body weight Provider Name and Address Organization Details Last Updated DateTime 05/26/2024 177.8 cm 21.5 kg/m2 96334.86 g [facility] 05/26/2024 08:47:30 Date Recorded Body height Body mass index (BMI) Body weight Provider Name and Address Organization Details Last Updated DateTime 08/25/2024 177.8 cm 21.5 kg/m2 33104.86 g Kermit Dickson [place] [facility] 08/25/2024 08:33:29 Social History None recorded. Functional Status None recorded. Mental Status None recorded. Family History Nothing Reported. Medical History No medical history recorded. Past Encounters Encounter ID Performer Location Encounter Start Date Encounter Closed Date Diagnosis/Indication Diagnosis SNOMED-CT Code Diagnosis ICD10 Code Diagnosis Note [id number] Андрей Blackburn PA-C [facility] [address] [place] [address] 02/12/2024 10:31:41 03/08/2024 12:19:58 Impingement syndrome of left shoulder region 5795530523 90078 M75.42 Impingemen t syndrome of right shoulder region 7989302194 46745 M75.41 [id number] Андрей Blackburn PA-C [facility] [address] [place] [address] 05/26/2024 08:43:34 06/15/2024 15:25:37 Bilateral osteoarthritis of knees 0545370765 05587 M17.0 Impingemen t syndrome of left shoulder region 9340375845 36413 M75.42 Impingemen t syndrome of right shoulder region 0215935387 08056 M75.41 [id number] Андрей Blackburn PA-C [facility] [address] [place] [address] 08/25/2024 08:24:24 09/15/2024 10:50:59 Impingement syndrome of right shoulder region 9366431992 27577 M75.41 Impingemen t syndrome of left shoulder region 2809252682 41500 M75.42 [id number] Андрей Blackburn PA-C [facility] - [facility] [address] [place] [address] 11/24/2024 08:50:41 12/07/2024 16:03:34 Impingement syndrome of right shoulder region 9397965472 39256 M75.41 Impingemen t syndrome of left shoulder region 4766890365 25118 M75.42 [id number] LETA [facility] - [place] [address] [place] [address] 02/23/2025 08:48:20 03/02/2025 15:01:00 Impingement syndrome of right shoulder region 1882384196 26539 M75.41 Impingemen t syndrome of left shoulder region 6679987452 95235 M75.42 Health Concerns Section Related Observation LastModified by Organization Detai ls LastModified Time None Recorded Concern Status LastModified by Organization Details LastModified Time None Recorded Advance Directives Directive None Recorded Payers Insurance Date Sequence Insurance Name Policy Number Policy Hogan Covered Member ID Hogan Member ID Guarantor Name 03/02/2025 2 [place] [id number] Sukhwinder Maynard [id number] Sukhwinder Maynard 02/22/2025 1 [place] [facility] [employer] Sukhwinder Maynard [id number] Sukhwinder Maynard
--- OUTSIDE RECORDS SUMMARY | 2025-03-23 14:54 | XMS_ITS | Clinical Summary ---
Author Organization [facility] Address [address] [facility] [address] [place] [address] Phone Care Team Providers Care Meter Shop Supervisor Name Role Phone Bobbi Harris MD Primary Care Provider [phone] Allergies No known active allergies Medications atorvastatin [...] of 2 - PCV) 01/02/1954 Influenza Vaccine (#1) 2025 Hepatitis B Vaccine Aged Out No longe r eligible based on patient's age to complete this topic Insurance Medicare [facility] Medicare [facility] Care Teams Meter Shop Supervisor Relationship Specialty Start Date End Date Bobbi Harris MD [facility] [place] [address] [place], [place] PCP - General Internal Medicine 03/04/22
== END 2025-03-23 14:49 | disposition home or self-care (01) ==
LOC: HO.HMCH 14:10
PROVIDERS: PCP Internal Medicine; Visit Provider Internal Medicine
DX: I82.431 Acute embolism and thrombosis of right popliteal vein (principal); E78.00 Pure hypercholesterolemia, unspecified; F33.9 Major depressive disorder, recurrent, unspecified; M25.511 Pain in right shoulder; M25.512 Pain in left shoulder

== ENCOUNTER → 2025-03-23 14:09 | Outpatient (BNVA) | payer MEDICARE, SELFPAY | PROVIDERS: PCP Internal Medicine; Visit Provider Internal Medicine | DX: I82.431 Acute embolism and thrombosis of right popliteal vein (principal); E78.00 Pure hypercholesterolemia, unspecified; F33.9 Major depressive disorder, recurrent, unspecified; M25.511 Pain in right shoulder; M25.512 Pain in left shoulder | CPT/HCPCS: 99212 ==

== ENCOUNTER 2025-04-04 09:00 | Outpatient (RCR) | payer MEDICARE, SELFPAY ==
--- NOTE | 2025-01-27 09:38 | MHC.PT.EP ---
[facility] [place] Office [place] Office [place] Office [address] Kathryn Rizo [address] [phone] F: [phone] F: [phone] F: [phone] F: [phone] Physical Therapy Plan of Care Date of Evaluation: 01/27/25 Date of Surgery: n/a Diagnosis: unsteadiness on feet Assessment: Patient is a 89 year old male presenting to PT with referral for unsteadiness on feet which has been ongoing for several years. He presents today with impairments in, balance, LE strength, gait mechanics. Pt's current occupation is retired, with baseline physical activities including ambulating, ADLs, stair negotiation. Pt expresses rn long term care goal of improving balance, and is motivated to work towards this in PT. Clinical presentation today is most consistent with signs and sx associated with unsteadiness on feet and pt will benefit from skilled PT 2x week x 4 weeks to address the following problems and impairments noted upon evaluation: balance, LE strength, gait mechanics. These problems limit the patient with the following functional activities: ambulating, ADLs, stair negotiation. The prescribed treatment plan of care is medically necessary. Co-morbidities of hx of CVA, fall risk were identified and taken into considerations of plan of care. Pt was educated on HEP, role of PT, prognosis, POC. Frequency and Duration: The patient will be seen 2 x wee x 4 weeks Short Term Goals: Pt will demonstrate improved LE strength by 1/3 grade in 2 weeks. Pt will demonstrate ability to perform tandem stance x 30 sec ea in 2 weeks with min sway and CGA. Sharepoint Designer Developer Goals: Pt will demonstrate improved LEFI score by 9 points in 4 weeks for improved functional mobility. Pt will demonstrate improved TUG score by 3 sec in 4 weeks for decreased risk of falls. Pt will demonstrate improved 30 second chair stand test score by 2 STS in 4 weeks for improved LE endurance. Treatment Plan: Modalities to reduce pain, spasms and effusion. Manual therapy to restore motion and function. Therapeutic exercise to improve strength and flexibility. Neuromuscular re-education for posture and balance. Therapeutic activities to return to functional activities of daily living. Electronically signed by: Marisela Ellison, PT, DPT, ATC Please sign and return to therapist. Thank you for your referral.
--- NOTE | 2025-04-04 09:46 | MHC.PT.DC ---
[facility] [place] [facility] [place] [facility] [place] Office [address] Kathryn Rizo [address] [phone] F: [phone] F: [phone] F: [phone] F: [phone] Physical Therapy Discharge Report Diagnosis: unsteadiness on feet Date of Surgery: n/a Date of Evaluation: 01/27/25 Date of Discharge: 04/04/25 Treatments to Date: 12 Cancellations to Date: 2 No Shows to Date: 0 Discharge Status: Discharge Summary: 04/04/2025: Pt has demonstrate little to no progress since start of care and has actually regressed on the LEFI outcome measure. He still feels off balanced and has LE strength issues. Based on lack of progress it is not appropriate to continue with skilled PT. He has an HEP which he does not seem to be performing regularly. He has however started to take a couple short walks which I encouraged him to continue doing. I also recommend he regularly works on his HEP at home to make greater gains. At this time skilled PT is no longer indicated so we will d/c. He is understanding and agreeing with plan. Electronically signed by: Marisela Ellison, PT, DPT, ATC Please sign and return to therapist. Thank you for your referral.
== END 2025-04-04 09:47 | disposition home or self-care (01) ==
LOC: HO.PTCHIC 09:00
PROVIDERS: PCP Internal Medicine
DX: R29.898 Other symptoms and signs involving the musculoskeletal system (principal); R26.81 Unsteadiness on feet; R26.89 Other abnormalities of gait and mobility; R53.1 Weakness
CPT/HCPCS: 97110; 97112; 97162

== ENCOUNTER 2025-04-30 08:49 | Outpatient (REF) | payer MEDICARE, SELFPAY ==
--- OUTSIDE RECORDS SUMMARY | 2025-04-29 11:18 | XMS_ITS | Clinical Summary ---
Author Organization [facility] Address [address] [facility] [address] [place] [address] Phone Care Team Providers Care Pony Ride Attendant Name Role Phone Bobbi Harris MD Primary Care Provider [phone] Allergies No known active allergies Medications atorvastatin [...] age to complete this topic Insurance Medicare [facility] Medicare [facility] Care Teams Pony Ride Attendant Relationship Specialty Start Date End Date Bobbi Harris MD [facility] [address] [place], [place] PCP - General Internal Medicine 03/04/22
--- OUTSIDE RECORDS SUMMARY | 2025-04-29 11:18 | XMS_ITS | Patient Health Record ---
Author Organization [facility] [place] Address [address] [place] [address] Care Team Providers Care Engine Dynamometer Tester Name Role Phone Alan Anaya MD Primary Care Provider Davion Landry Unavailable [phone] Reason For Referral No Information Medications Medication [...] W/U Status Risk Notes Problem Plantar fasciitis (076275734) Plantar Fasciitis (728.71) Active confirmed Problem Congenital pes planus (19122906) Flat Foot, 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 confirmed Problem Pain in limb (80814629) Pain in Limb (729.5) Active confirmed Plan Of Treatment Pending Test Test Name Order Date X ray : Foot, right 2V 12/06/2013 Insurance Providers Payer Name Payer Address Payer Phone Subscriber Number Group Number Insured Name Patient Relationship to Insured Coverage Start Date Coverage End Date Medicare National [facility] [address] [place] [phone] [id number] Sukhwinder Mayanrd Self - patient is the insured [employer] Blue [employer] [address] [place] [address] [id number] Sukhwinder Maynard Self - patient is the insured Medical (General) History Medical History History ICD Code prostate cancer Surgical History Surgery Date(Month/Year) prostate cancer 2000 AUS, AND BOTOX 100 UNITS INJECTED INTO B LADDER 12/31/13
--- OUTSIDE RECORDS SUMMARY | 2025-04-29 11:19 | XMS_ITS | Patient Health Record ---
Author Organization [facility] Address [address] [place] [address] Care Team Providers Care Hydrometeorology Teacher Name Role Phone Po Bobbi TROY Primary Care Provider Warner Sinclair [phone] Allergies No Known Allergies Reason For Referral [...] W/U Status Risk Notes Problem Weight loss (198206542) Weight loss (R63.4) Active confirmed Problem Early satiety (374339720) Early satiety (R68.81) Active confirmed Problem Barium swallow abnormal (665458127) Abnormal barium swallow (R93.3) Active confirmed Plan Of Treatment Future Test Test Name Order Date COLONOSCOPY 07/09/2012 UPPER GI ENDOSCOPY BALLOOON DILATION OF ESOPH 05/02/2022 Insurance Providers Payer Name Payer Address Payer Phone Subscriber Number Group Number Insured Name Patient Relationship to Insured Coverage Start Date Coverage End Date MEDICARE OF [place] [address] [place] [address] [id number] JOHN MINAYA Self - patient is the insured MED[employer] ATTN CLAIMS [address] [place] [address] [id number] JOHN MINAYA Self - patient is the insured Medical (General) History Medical History History ICD Code Colonoscopy was in 11-07-2008 with removal of small tubular adenomas Colon and rectal polyps-tubular adenomas Hyperlipidemia Denies HI,DM,CVA,Lung disease,renal dise ase Prostate cancer with prostat [...]
--- OUTSIDE RECORDS SUMMARY | 2025-04-30 08:51 | XMS_ITS | Patient Health Record ---
Author Organization [facility] [place] Address [address] [place] [address] Care Team Providers Care Marketing Analytics Specialist Name Role Phone Alan Anaya MD Primary Care Provider Davion Landry Unavailable [phone] Reason For Referral No Information Medications Medication [...] W/U Status Risk Notes Problem Plantar fasciitis (037256017) Plantar Fasciitis (728.71) Active confirmed Problem Congenital pes planus (85403846) Flat Foot, 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 confirmed Problem Pain in limb (09363823) Pain in Limb (729.5) Active confirmed Plan Of Treatment Pending Test Test Name Order Date X ray : Foot, right 2V 12/06/2013 Insurance Providers Payer Name Payer Address Payer Phone Subscriber Number Group Number Insured Name Patient Relationship to Insured Coverage Start Date Coverage End Date Medicare National [facility] [address] [place] [phone] [id number] Sukhwinder Maynard Self - patient is the insured [employer] Blue [employer] [address] [place] [address] [id number] Sukhwinder Maynard Self - patient is the insured Medical (General) History Medical History History ICD Code prostate cancer Surgical History Surgery Date(Month/Year) prostate cancer 2000 AUS, AND BOTOX 100 UNITS INJECTED INTO B LADDER 12/31/13
--- OUTSIDE RECORDS SUMMARY | 2025-04-30 08:52 | XMS_ITS | Clinical Summary ---
Author Organization [facility] Address [address] [facility] [address] [place] [address] Phone Care Team Providers Care Deicer Tester Name Role Phone Bobbi Harris MD Primary Care Provider [phone] Allergies No known active allergies Medications atorvastatin [...] age to complete this topic Insurance Medicare [facility] Medicare [facility] Care Teams Deicer Tester Relationship Specialty Start Date End Date Bobbi Harris MD [facility] [place] [address] [place], [place] PCP - General Internal Medicine 03/04/22
--- OUTSIDE RECORDS SUMMARY | 2025-04-30 08:52 | XMS_ITS | Patient Health Record ---
Author Organization [facility] Address [address] [place] [address] Care Team Providers Care Canopy Stringer Name Role Phone Po Bobbi TROY Primary Care Provider Warner Sinclair [phone] Allergies No Known Allergies Reason For Referral [...] W/U Status Risk Notes Problem Weight loss (527571763) Weight loss (R63.4) Active confirmed Problem Early satiety (912180176) Early satiety (R68.81) Active confirmed Problem Barium swallow abnormal (222486001) Abnormal barium swallow (R93.3) Active confirmed Plan Of Treatment Future Test Test Name Order Date COLONOSCOPY 07/09/2012 UPPER GI ENDOSCOPY BALLOOON DILATION OF ESOPH 05/02/2022 Insurance Providers Payer Name Payer Address Payer Phone Subscriber Number Group Number Insured Name Patient Relationship to Insured Coverage Start Date Coverage End Date MEDICARE OF [place] [address] [place] [address] [id number] JOHN MINAYA Self - patient is the insured MED[employer] ATTN CLAIMS [address] [place] [address] [id number] JOHN MINAYA Self - patient is the insured Medical (General) History Medical History History ICD Code Colonoscopy was in 11-07-2008 with removal of small tubular adenomas Colon and rectal polyps-tubular adenomas Hyperlipidemia Denies PA,DM,CVA,Lung disease,renal dise ase Prostate cancer with prostat [...]
[2025-04-30 11:14] LABS: INTERNATIONAL NORM RATIO 0.9 (0.9-1.1); Prothrombin Time 10.7 SEC (10.9-12.4)
== END 2025-04-30 08:50 | disposition home or self-care (01) ==
LOC: HO.HMGCLDS 08:49
PROVIDERS: PCP Internal Medicine; Visit Provider Internal Medicine
DX: I82.431 Acute embolism and thrombosis of right popliteal vein (principal)
CPT/HCPCS: 36415; 85610

== ENCOUNTER 2025-05-11 13:03 | Outpatient (AMB) | payer MEDICARE, SELFPAY ==
--- NOTE | 2025-05-11 13:22 | MHC.OFFVISCO ---
Intake Intake Visit Reasons: Anticoagulation Drier Operator Required: No Allergies No Known Allergies Allergy (Mild, Verified 03/23/25 14:20) N/A Medication List - Last Reconciled 05/11/25 by Gabrielle Fofana RN albuterol sulfate 90 mcg/actuation 2 inhalations inhalation Q4-6H PRN ascorbate calcium (vitamin C) 500 mg PO DAILY chair, wheel (Wheel chair) 16 inch with elevating leg rest (manual) cholecalciferol (vitamin D3) 25 mcg PO DAILY comp.stocking,knee,long,medium As directed cyproheptadine 4 mg PO BEDTIME Lactobacillus rhamnosus GG (Culturelle) 1 cap PO DAILY meloxicam 7.5 mg PO DAILY polyethylene glycol 3350 (Miralax) 17 grams PO DAILY psyllium husk (Fiber Therapy Laxative (psyllium husk)) 1.04 grams (2 x 0.52 gram) PO DAILY PRN rosuvastatin 40 mg PO DAILY sennosides (senna) 8.6 mg PO BEDTIME PRN sertraline 25 mg (1/2 x 50 mg) PO DAILY tolterodine ER 4 mg PO DAILY warfarin 5 mg PO DAILY Nursing Note INR: 2.5- in therapeutic range of 2-3 Medications and supplements reviewed- pt states no longer taking aspirin No changes in health, diet, medications, or supplements, Denies any signs and symptoms of bleeding or bruising or clotting. Bleeding, bruising, clotting discussed Nutritional guidance given Dose: 5mg x 7 F/U INR: friday05/16/25 Patient verbalizes understanding of instructions given pt new admit to acs- pt on anticoag due to DVT's. pt originally was on eliquis but due to cost has transitioned to warfarin. He started warfarin approx 2 weeks ago. Educational material given to pt- s/s clotting and bleeding discussed, dietary management discussed and handouts reviewed. Pt signed pt agreement and no show policy after discussion. pt enc to take warfarin at the same time every day and enc to include greens in weekly diet. Pt amb with cane- sl gait instablity noted- discussed risks involved with falling and to seek medical care if nec. 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 Illness/Depression: Yes (depression) Surgeries: radical prostatectomy, pump urinary Anti-Coag. Education Record Teaching Recipient: Patient What is the easiest way to learn: Reading, Listening, Demonstration and Education Packet Barriers to Learning Identified: Physical (gait instability) Physical: Hearing (hard of hearing), Memory ('forgetful') and Mobility Significant other who can be involved in Teaching Process when Indicated: Bridget Payne [phone] Drier Operator Required: No Readiness To Learn: Good Teaching Methods: Demonstration, Handout and Teach Back Response to Teaching: Reinforcement Needed Re-Education needs: Reinforce Content, Re-Teach and Needs Practice Education Intervention/Brief Description of Teaching 1. Able to state reason for taking Warfarin: Yes 2. Able to state Pain Management techniques: Yes 3. Able to state action of Warfarin.: Yes Able to state current dose, pill color, how and when Warfarin to be taken: Yes Able to identify signs of bleeding &/or clotting: Yes 4. Able to identify need to keep diet consistent in regard to vitamin K intake: Yes Able to state restriction on alcohol: Yes 5. Able to state need for compliance with PT/INR testing: Yes Describes rationale for carrying ID and wearing Medic Alert bracelet: Yes Patient instructed to monitor for excess bruising or signs/symptoms of clotting or bleeding: Yes 6. Able to state that there are drugs that interact with Warfin: Yes 7. Able to state the need to seek medical attention when illness/injury occur.: Yes Describes the need to avoid activities with high risk of injury: Yes 8. Able to state duration of treatment: Yes 9. Demonstrates understanding of notifying all providers of pending dental surgical, or other invasive procedures: Yes 10. Able to state Home Care instructions Questionnaires HAS-BLED Does the patient had uncontrolled Hypertension?: No Does the patient have renal disease?: No Does the patient have liver disease?: No Does the patient have a history of stroke?: No Has the patient had major bleeding or predisposition to bleeding?: No Does the patient have labile INRs?: Yes Is the patient over 65 years of age?: Yes Is the patient on medications that gives them a predisposition to bleeding?: Yes Does the patient use alcohol?: No HAS-BLED Score: 3 CHADSVASC Age: 75 or over Gender: Male Does the patient have a history of CHF?: No Does the patient have a history of Hypertension?: No Does the patient have a history of Stroke/TIA/Thromboembolism?: Yes Does the patient have a history of Vascular Disease (prior UT, PAD or aortic plaque)?: Yes Does the patient have a history of Diabetes?: No CHADS VACS Score: 5 Ron Prediction Score Rsk VTE Active Cancer: Yes Previous VTE, excluding superficial vein thrombosis: Yes Reduced mobility: Yes Already known Thrombophilic Condition: No With-in last month Trauma and/or Surgery: No Elderly 70 year or older: Yes Heart and/or Respiratory Failure: No Acute Myocardial infarction and/or Ischemic Stroke: No Acute Infection and/or Rheumatologic Disorder: No Obesity (BMI 30 or greater): No Ongoing Hormonal Treatment: No Score: 10 Ron Score less than 4; Low Risk of VTE Ron Score 4 or greater; High Risk of VTE Coding Level of Care Code New Patient Level 2 Diagnoses Current use of anticoagulant therapy Z79.01 Results AMB INR Fingerstick AMB INR Fingerstick 2.5 Last Edit by Gabrielle Fofana RN on 05/11/25 13:48 interface delay Assessment & Plan Assessment & Plan (1) Current use of anticoagulant therapy: Code(s): Z79.01 - extermination inspector (current) use of anticoagulants
[2025-05-11 13:55] LABS: Prothrombin Time Whole Bld POC 30.4 sec (11.1-13.5); ~PT, ~INR - Anti Coag Clinic 2.5 (0.9-1.1)
--- OUTSIDE RECORDS SUMMARY | 2025-05-11 15:23 | XMS_ITS | Clinical Summary ---
Author Organization [facility] Address [address] [facility] [address] [place] [address] Phone Care Team Providers Care Mash Processing Operator Name Role Phone Bobbi Harris MD Primary Care Provider [phone] Allergies No known active allergies Medications atorvastatin [...] age to complete this topic Insurance Medicare [facility] Medicare [facility] Care Teams Mash Processing Operator Relationship Specialty Start Date End Date Bobbi Harris MD [facility] [place] [address] [place], [place] PCP - General Internal Medicine 03/04/22
== END 2025-05-11 14:10 | disposition home or self-care (01) ==
LOC: HO.ACS 13:03
PROVIDERS: PCP Internal Medicine; Visit Provider Internal Medicine Medical Oncology
DX: Z79.01 Long term (current) use of anticoagulants (principal)

== ENCOUNTER → 2025-05-11 13:03 | Outpatient (BNVA) | payer MEDICARE, SELFPAY | PROVIDERS: PCP Internal Medicine; Visit Provider Internal Medicine Medical Oncology | DX: Z51.81 Encounter for therapeutic drug level monitoring (principal); Z79.01 Long term (current) use of anticoagulants | CPT/HCPCS: 85610; 99202 ==

== ENCOUNTER 2025-05-12 16:21 | Emergency (ER) | payer MEDICARE, SELFPAY ==
--- NOTE | ~2025-05-12 | XR_ITS ---
CLINICAL HISTORY: fall 2 views left tibia-fibula Comparison: None Findings: No fractures or dislocations. No joint effusion. No significant arthritic change. No radiopaque foreign body. Impression: Distal soft tissue swelling. No acute skeletal abnormality. This document has been electronically signed by: Abraham Silver MD on 05/12/2025 19:48:23
--- NOTE | ~2025-05-12 | XR_ITS ---
CLINICAL HISTORY: fall, pain 3 views left elbow Comparison: None Findings: No dislocations. There is a joint effusion with displaced posterior fat pad and also lifting of anterior fat pad. There is mild ulnar trochlear joint degenerative narrowing in the lateral projection. No radiopaque foreign body. Impression: There is a joint effusion with vertical lucency involving medial distal humeral epicondyle, consistent with a nondisplaced fracture. This document has been electronically signed by: Abraham Silver MD on 05/12/2025 17:41:15
--- NOTE | ~2025-05-12 | CT_ITS ---
CLINICAL HISTORY: fall with head strike, on thinners CT Head Without Contrast: Comparison: 06/05/2023 Findings: Cortical sulci are prominent There is a remote 5 x 6 mm lacunar infarct in the right internal capsule somewhat visible on the previous exam considering slight differences in positioning. No shift in midline structures No intraparenchymal bleeding or abnormal extra axial blood fluid collections Normal pituitary size There are small air-fluid levels in the inferior aspect of the maxillary sinuses. Unremarkable orbital structures No depressed fractures. The mastoid air cells and middle ear cavities are clear without signs of basilar fracture. Impression: Unremarkable CT of the head, no signs of acute trauma This document has been electronically signed by: Abraham Silver MD on 05/12/2025 19:02:00
[2025-05-12 16:39] VITALS: BP 130/64; PULSE 70; RESP 18; TEMP 37; O2SAT 96; BMI 22.9
--- NOTE | 2025-05-12 16:40 | ED_ITS ---
HPI - General Adult General Chief complaint: Fall Stated complaint: fell left leg bruising/ on thinners Time Seen by Provider: 05/12/25 18:33 Source: patient and old records reviewed Mode of arrival: ambulatory Limitations: no limitations History of Present Illness ED Provider: [place] narrative: 89 yo male with PMH of DVT on coumadin, UTI, achalasia, SIADH, HLD, gait instability who was walking into house and tripped. He did not fall or hit his head. He hit left elbow and L leg. He notes his leg swelled after he hit it and has a big bruise. He didn't notice any preceding redness. He has chronic left leg edema but he notes it is more bruised and swollen after no severe pain. 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) Location: left, upper extremity and lower extremity Radiation: non-radiation Severity: mild Relieving factors: none Exacerbating factors: none Associated symptoms: denies other symptoms Treatments prior to arrival: none Related Data Home Medications ?Medication ?Instructions ?Recorded ?Confirmed cholecalciferol (vitamin D3) 25 25 mcg PO DAILY 05/11/25 mcg (1,000 unit) capsule albuterol sulfate 90 mcg/actuation 2 inh inhalation Q4 -6H PRN Wheezing 02/13/24 05/11/25 breath activated powder inhaler ascorbate calcium (vitamin C) 500 500 mg PO DAILY 03/3105/11/25 mg tablet sennosides 8.6 mg capsule (senna) 8.6 mg PO BEDTIME CA N 05/11/25 05/11/25 Previous Rx's ?Medication ?Instructions ?Recorded comp.stocking,knee,long,medium #2 ea 08/13/22 polyethylene glycol 3350 17 17 g PO DAILY #510 grams 0 04/23/23 gram/dose oral powder (Miralax) Lactobacillus rhamnosus GG 15 1 cap PO DAILY #90 caps 08/04/23 billion cell sprinkle capsule (Culturelle) chair, wheel (Wheel chair) #1 ea 08/05/23 rosuvastatin 40 mg tablet 40 mg PO DAILY #30 tabs 08/09 tolterodine 4 mg capsule,extended 4 mg PO DAILY #90 ca ps 12/01/24 release 24 hr meloxicam 7.5 mg tablet 7.5 mg PO DAILY #30 tabs psyllium husk 0.52 gram capsule 1.04 g (2 x 0.52 gram) PO DAILY 02/22/25 (Fiber Therapy Laxative (psyllium PRN constipation #60 caps husk)) sertraline 50 mg tablet 25 mg (1/2 x 50 mg) PO DAILY #90 03/16/25 tabs cyproheptadine 4 mg tablet 4 mg PO BEDTIME #90 tabs warfarin 5 mg tablet 5 mg PO DAILY #30 tabs 04/27 cephalexin 500 mg capsule 500 mg PO TID 7 days #21 cap s 05/12/25 Allergies Allergy/AdvReac Type Severity Reaction Status Date / Time No Known Allergies Allergy Mild N/A Verified 05/12/25 16:43 Review of Systems 2 Review of Systems: Constitutional : No Fever, No Chills ENT/Mouth : No sore throat, No Rhinorrhea Eyes: No Eye Pain, No Swelling, No Redness Cardiovascular : No Chest Pain, No SOB Respiratory : No Cough, No Sputum Gastrointestinal : No Nausea, No Vomiting, No Diarrhea, No abdominal Pain Genitourinary : No Dysuria, No Hematuria Musculoskeletal : No joint pain, No Myalgias, No Joint Swelling Skin : No Skin Lesions, positive skin rash Neuro : No Weakness, No Numbness, No Headache Psych : No Anxiety, No Depression Heme/Lymph: No Bruising, No Bleeding,No Lymphadenopathy Endocrine : No Polyuria, No Polydipsia All other systems reviewed and are negative PMFSH Past Medical History Attestation statement: The following information was validated with the patient. Source: old records reviewed Medical History Varicose veins of right lower extremity with inflammation Leg wound, right Decreased appetite Adult general medical exam Diarrhea Cellulitis Dysphagia Nausea Frequency of micturition Venous insufficiency COVID-19 virus infection Leukocytosis Normocytic anemia Hyponatremia Low sodium levels Hypercholesterolemia Prostate cancer Osteoarthritis, shoulder Surgical History History of radical prostatectomy Erectile dysfunction following urethral surgery Family History Family History Father Diabetes Social History Social History Household Members: Children Household Members Other:: daughter Housing: House Do you presently have visiting nurse or other home services: Yes ([facility]) Alcohol intake: never Patient Tobacco Use Status: Never used Tobacco e-Cigarette/Vaping Use: Never Used Second Hand Smoke Exposure: No Advance Directives: Yes Advance Directives on File: Yes Advance Directives Date on File: 08/24/21 service: No Current occupational status: retired 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 Oriented X3. No acute distress. Eyes: Pupils equal, round and reactive to light. ENT: Pharynx normal. Neck: Normal inspection. Neck supple. CVS: Normal heart rate and rhythm. Pulses normal. Respiratory: No respiratory distress. Breath sounds normal. Abdomen: Soft and nontender. Skin: Skin warm and dry. Normal skin color. Normal skin turgor. Extremities: left leg edema noted 2+ moderate anterior hematoma but NV intact, mild erythema around ankle that is mildly warm, distal NV intact, compartments are soft and compressible, L elbow no effusion, small skin tear on lateral elbow he has no swelling or ttp along reported fracture he has full ROM Neuro: Oriented X 3. No motor deficit. No sensory deficit. CN2-12 intact Course Course Course Narrative: This is a rapid medical exam performed by Morteza Busch NP: Additional HPI, ROS, PE not included below will be deferred to primary provider. 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 States he got stuck between the screen door and the regular door when coming inside. Nephew states LLE has new bruising since the fall. Patient denies head strike or LOC. Plan: CT head, elbow xray, labs Reevaluation(s) Reevaluation #1: refusing to wear sling states his elbow is fine Medications Administered Discontinued Medications Generic Name Dose Route Start Last Admin Trade Name Elisabeth PRN Reason Stop Dose Admin Cephalexin HCl 500 mg 05/12/25 20:16 05/12/25 20:41 Cephalexin 500 Mg Capsule PO 05/12/25 20:17 500 mg ONCE ONE Administration Procedures Orthopedic Splinting/Casting Injury #1: Side: left Upper Extremity Injury Location: elbow Upper Extremity Immobilizer: sling/shoulder immobilizer Additional Comments: NV intact Medical Decision Making Medical Decision Making [facility] Narrative: 89 yo male with PMH of DVT on coumadin, UTI, achalasia, SIADH, HLD, gait instability here s/p mechanical fall I will obtain xrays of L elbow and tib fib CT head given coumadin use - he has mild erythema as well will start on PO cephalexin. I am going to sling arm and not splint it as clinically not consistent with fracture and given the skin wound and breakdown I believe splint will cause further harm. Will refer to orthopedics, VNA ordered to help with wound care at home Differential Diagnosis Differential Diagnoses: The differential diagnosis associated with the presentation includes hematoma, cellulitis, doubt fracture on xray will avoid splint he has no pain and full ROM doubt compartment syndrome Admission/Observation Consideration of admission/observation: Escalation of care including admission/observation considered stable for DC negative work up to have VNA at home Consult Healthcare Provider Management of the patient was discussed with: Railroad Crossing Protection Maintainer Lab Data [facility] Lab Attestation statement: I reviewed the patient's lab results. 05/12/25 17:26 05/12/25 17:26 Labs: Lab Results 05/12/25 Range/Units 17:26 WBC 9.0 (4.8-10.8) X10*3/uL RBC 3.75 L (4.60-5.80) X10*6/uL Hgb 11.9 L (14.0-18.0) g/dl Hct 35.5 L (42.0-52.0) % MCV 94.7 (80.0-98.0) fL MCH 31.7 (27.0-33.0) pg MCHC 33.5 (31.0-36.0) g/dl RDW 13.8 (11.0-16.0) % Plt Count 170 (160-400) X10*3/uL MPV 9.8 (9.4-12.4) fL Immature Gran % (Auto) 0.4 (0.0-0.4) % Neut % (Auto) 67.1 (45-73) % Lymph % (Auto) 22.3 (20-40) % Branch % (Auto) 8.9 (2-11) % Eos % (Auto) 0.7 (0-4) % Baso % (Auto) 0.6 (0-2) % Lymph # (Auto) 2.0 (1.2-4.9) X10*3/uL Branch # (Auto) 0.8 (0.1-1.2) X10*3/uL Eos # (Auto) 0.1 (0.0-0.4) X10*3/uL Baso # (Auto) 0.1 (0.0-0.2) X10*3/uL Abs Immat Gran (auto) 0.04 H (0.00-0.03) X10*3/uL Absolute Neuts (auto) 6.0 (2.0-8.3) x10*3/uL Absolute Nucleated RBC 0.000 (0.0-0.012) X10*3/uL Nucleated RBC % (auto) 0.0 (0.0-0.2) /100WBC PT 24.2 H D (10.9-12.4) SEC INR 2.1 H (0.9-1.1) APTT 38.5 H (26.7-34.1) SEC Sodium 139 (135-145) mmol/L Potassium 4.1 (3.3-5.1) mmol/L Chloride 106 (96-108) mmol/L Carbon Dioxide 25 (22-29) mmol/L Anion Gap 12 (12-20) BUN 22 H (9-16) mg/dL Creatinine 0.99 (0.5-1.4) mg/dL Estim Creat Clear Calc 50.3 Estimated GFR > 60 Random Glucose 83 (60-115) mg/dL Calcium 9.4 (8.4-10.2) mg/dL Total Bilirubin 0.4 (0.0-1.0) mg/dL AST 25 (5-37) U/L ALT 15 (0-40) U/L Alkaline Phosphatase 68 (39-117) U/L Total Protein 7.1 (6.5-8.0) g/dL Albumin 3.6 (3.5-5.0) g/dL Independent Interpretation I performed an independent interpretation of an: Plain X-Ray (?fracture) and CT Scan (no ICH) Radiology Impression Discussion of test interpretation with radiology: I have reviewed the radiologist's reading. Independent Historian Clinical information obtained from an independent historian. History obtained from or confirmed by: Other External Record Review External record reviewed: Outpatient record Prescription Management I considered prescription management with: Other Discharge Plan Discharge Clinical Impression: Hematoma Skin tear of left elbow without complication Qualifiers: Encounter type: initial encounter Qualified Code(s): S51.012A - Laceration without foreign body of left elbow, initial encounter Cellulitis Qualifiers: Site of cellulitis: extremity Site of cellulitis of extremity: lower extremity Laterality: left Qualified Code(s): L03.116 - Cellulitis of left lower limb Patient Disposition: Home, Self-Care Instructions: Laceration (ED), Cellulitis (ED), Hematoma (ED) Additional Instructions: xray of L elbow shows possible fracture - use sling until seen by ortho it is okay to take off and move shoulder and L wrist keep nicholas wrap on unless soiled and using shower monitor for worsening redness bleeding or any other concerns INR 2.1 CT head normal On a cephalosporin?antibiotic, softer bowel movements are to be expected. Call your provider if you move your bowels more than 4 times a day, your bowel movements are almost all liquid, or you get a rash.?? cephalexin can make your INR high make sure you monitor it closely Prescriptions: New cephalexin 500 mg capsule 500 mg PO TID 7 Days Qty: 21 0RF No Action (DME) Wheel chair Kit See Rx Instructions .Route Qty: 1 0RF Rx Instructions: 16 inch with elevating leg rest (manual) rosuvastatin 40 mg tablet 40 mg PO DAILY Qty: 30 3RF tolterodine 4 mg capsule,extended release 24hr 4 mg PO DAILY Qty: 90 0RF sertraline 50 mg tablet 25 mg PO DAILY Qty: 90 0RF cyproheptadine 4 mg tablet 4 mg PO BEDTIME Qty: 90 0RF warfarin 5 mg tablet 5 mg PO DAILY Qty: 30 2RF Protocol: Dose Management Condition: Friday (Week One) Dose/Route: 5 mg Instruction: 1 x 5 mg tablet Condition: Friday Dose/Route: 5 mg Instruction: 1 x 5 mg tablet Condition: Friday Dose/Route: 5 mg Instruction: 1 x 5 mg tablet Condition: Friday Dose/Route: 5 mg Instruction: 1 x 5 mg tablet Condition: Dose/Route: 5 mg Instruction: 1 x 5 mg tablet Condition: Friday Dose/Route: 5 mg Instruction: 1 x 5 mg tablet Condition: Friday Dose/Route: 5 mg Instruction: 1 x 5 mg tablet Condition: Friday (Week Two) Dose/Route: 5 mg Instruction: 1 x 5 mg tablet Condition: Friday Dose/Route: 5 mg Instruction: 1 x 5 mg tablet Condition: Friday Dose/Route: 5 mg Instruction: 1 x 5 mg tablet Condition: Friday Dose/Route: 5 mg Instruction: 1 x 5 mg tablet Condition: Dose/Route: 5 mg Instruction: 1 x 5 mg tablet Condition: Friday Dose/Route: 5 mg Instruction: 1 x 5 mg tablet Condition: Friday Dose/Route: 5 mg Instruction: 1 x 5 mg tablet Protocol Text: Adjustment Start Date: Friday05/11/25 INR Value: 2.5 INR Date: 05/11/25 Recheck Date: 05/16/25 Additional Instructions: cont same dosing TAKE YOUR WARFARIN AT THE SAME TIME EVERY DAY EAT GREENS 2-3 TIMES PER WEEK CALL WITH ANY CHANGES IN MEDICATIONS cholecalciferol (vitamin D3) 25 mcg (1,000 unit) capsule 25 mcg PO DAILY (DME) comp.stocking,knee,long,medium Misc See Rx Instructions .Route Qty: 2 0RF Rx Instructions: As directed Culturelle 15 billion cell capsule, sprinkle 1 cap PO DAILY Qty: 90 2RF ascorbate calcium (vitamin C) 500 mg tablet 500 mg PO DAILY albuterol sulfate 90 mcg/actuation aerosol powdr breath activated 2 inh inhalation Q4-6H PRN (Reason: Wheezing) senna 8.6 mg capsule 8.6 mg PO BEDTIME PRN polyethylene glycol 3350 [Miralax] 17 gram/dose powder 17 g PO DAILY Qty: 510 2RF meloxicam 7.5 mg tablet 7.5 mg PO DAILY Qty: 30 2RF psyllium husk [Fiber Therapy Laxative (husk)] 0.52 gram capsule 1.04 g PO DAILY PRN (Reason: constipation) Qty: 60 2RF Referrals: [facility] [Provider Group] Referral Note: call to schedule for L elbow injury Interventions: ED Discharge Assessment Last Done: 05/12/25 20:55 Discharge Date/Time: 05/12/25 20:56 Print Language: Croatian
[2025-05-12 18:03] LABS: MANUAL DIFF FLAG NO
[2025-05-12 18:11] LABS: Hematocrit 35.5 % (42.0-52.0); Hemoglobin 11.9 g/dl (14.0-18.0); Imm Gran Abs Auto 0.04 X10*3/uL (0.00-0.03); Imm Gran Pct Auto 0.4 % (0.0-0.4); Lymphocytes Absolute Auto 2.0 X10*3/uL (1.2-4.9); Mean Corpuscular HGB Conc 33.5 g/dl (31.0-36.0); Mean Corpuscular Hemoglobin 31.7 pg (27.0-33.0); Mean Corpuscular Volume 94.7 fL (80.0-98.0); NRBC Abs Auto 0.000 X10*3/uL (0.0-0.012); NRBC Pct Auto 0.0 /100WBC (0.0-0.2); Platelet Count 170 X10*3/uL (160-400); Red Blood Count 3.75 X10*6/uL (4.60-5.80); White Blood Count 9.0 X10*3/uL (4.8-10.8)
[2025-05-12 18:16] LABS: Alanine Aminotransferase 15 U/L (0-40); Albumin Level 3.6 g/dL (3.5-5.0); Alkaline Phosphatase 68 U/L (39-117); Anion Gap 12 (12-20); Aspartate Amino Transferase 25 U/L (5-37); Blood Urea Nitrogen 22 mg/dL (9-16); Calcium 9.4 mg/dL (8.4-10.2); Carbon Dioxide 25 mmol/L (22-29); Chloride 106 mmol/L (96-108); Creatinine Clr Calc Pharmacy 50.3; Estimated Glomerular Filt Rate > 60; Potassium 4.1 mmol/L (3.3-5.1); Sodium 139 mmol/L (135-145); Total Protein 7.1 g/dL (6.5-8.0)
[2025-05-12 18:38] LABS: INTERNATIONAL NORM RATIO 2.1 (0.9-1.1); Prothrombin Time 24.2 SEC (10.9-12.4)
[2025-05-12 18:41] LABS: Partial Thromboplastin Time 38.5 SEC (26.7-34.1)
--- OUTSIDE RECORDS SUMMARY | 2025-05-12 18:41 | XMS_ITS | Patient Health Record ---
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, 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 confirmed Problem Pain in limb (63875555) Pain in Limb (729.5) Active confirmed Plan Of Treatment Pending Test Test Name Order Date X ray : Foot, right 2V 12/06/2013 Insurance Providers Payer Name Payer Address Payer Phone Subscriber Number Group Number Insured Name Patient Relationship to Insured Coverage Start Date Coverage End Date Medicare [facility] [address] [place] [phone] [id number] Sukhwinder Maynard Self - patient is the insured [employer] [address] [place] [address] [id number] Sukhwinder Maynard Self - patient is the insured Medical (General) History Medical History History ICD Code prostate cancer Surgical History Surgery Date(Month/Year) prostate cancer 2000 AUS, AND BOTOX 100 UNITS INJECTED INTO B LADDER 12/31/13
--- OUTSIDE RECORDS SUMMARY | 2025-05-12 18:42 | XMS_ITS | Patient Health Record ---
Author Organization [facility] Address [address] [place] [address] Care Team Providers Care Stripper And Opaquer Apprentice Name Role Phone Po Bobbi TROY Primary Care Provider Warner Sinclair [phone] Allergies No Known Allergies Reason For Referral [...] W/U Status Risk Notes Problem Weight loss (700002757) Weight loss (R63.4) Active confirmed Problem Early satiety (916084362) Early satiety (R68.81) Active confirmed Problem Barium swallow abnormal (566392058) Abnormal barium swallow (R93.3) Active confirmed Plan Of Treatment Future Test Test Name Order Date COLONOSCOPY 07/09/2012 UPPER GI ENDOSCOPY [place] DILATION OF ESOPH 05/02/2022 Insurance Providers Payer Name Payer Address Payer Phone Subscriber Number Group Number Insured Name Patient Relationship to Insured Coverage Start Date Coverage End Date MEDICARE OF [place] [address] [place] [address] [id number] JOHN MINAYA Self - patient is the insured [employer] CLAIMS [address] [place] [address] [id number] JOHN MINAYA Self - patient is the insured Medical (General) History Medical History History ICD Code Colonoscopy was in 11-07-2008 with removal of small tubular adenomas Colon and rectal polyps-tubular adenomas Hyperlipidemia Denies TN,DM,CVA,Lung disease,renal dise ase Prostate cancer with prostat [...]
--- OUTSIDE RECORDS SUMMARY | 2025-05-12 18:42 | XMS_ITS | Clinical Summary ---
Author Organization [facility] Address [address] [facility] [address] [place] [address] Phone Care Team Providers Care Compressed Gas Tester Name Role Phone Bobbi Harris MD Primary Care Provider [phone] Allergies No known active allergies Medications atorvastatin [...] age to complete this topic Insurance Medicare [facility] Medicare [facility] Care Teams Compressed Gas Tester Relationship Specialty Start Date End Date Bobbi Harris MD [facility] [place] [address] [place], [place] PCP - General Internal Medicine 03/04/22
[2025-05-12 19:06] VITALS: BP 146/70; PULSE 78; RESP 17; TEMP 36.6; O2SAT 98
--- NOTE | 2025-05-12 20:44 | MHC.CM.ED ---
CM met with patient to discuss discharge planning. Dr. Villegas is requesting [facility]NA follow up for drsg changes every othr day with roxann oliveira. Requesting [facility]NA monitor for infection, L leg hematoma and for any wound breakdown. F2F completed. Will place referrals. Pt lives alone, but his son Zen is staying with him now. Pt is A&Ox3. Pt is very sharp mentally. He has a life alert and a TECHNICIAN HELPER INSTRUMENT twice a week to assist with showering. His HCP is on file. Address, PCP , telephone and insurance verified. Pt will be discharged home with nephew to transport him home. CM will reach out to patient tomorrow with VNA information. Dr. Villegas aware.
[2025-05-12 20:55] VITALS: BP 146/70; PULSE 78; RESP 17; TEMP 36.6; O2SAT 98
--- NOTE | 2025-05-13 15:57 | MHC.CM.ED ---
Pt accepted [facility]. CM called patient and VNA was at his home already doing his intake.
== END 2025-05-12 20:56 | disposition home or self-care (01) ==
PROVIDERS: Registered Nurse Emergency; Emergency Provider Emergency Medicine; PCP Internal Medicine
DX: S51.012A Laceration without foreign body of left elbow, initial encounter (principal); S50.02XA Contusion of left elbow, initial encounter; L03.116 Cellulitis of left lower limb; R51.9 Headache, unspecified; R26.81 Unsteadiness on feet; M79.602 Pain in left arm; M25.522 Pain in left elbow; X58.XXXA Exposure to other specified factors, initial encounter; Y93.9 Activity, unspecified; Y92.9 Unspecified place or not applicable; Y99.8 Other external cause status; Z79.899 Other long term (current) drug therapy; Z51.81 Encounter for therapeutic drug level monitoring
CPT/HCPCS: 29105; 36415; 70450; 73080; 73590; 80053; 85025; 85610; 85730; 99282; 99284

== ENCOUNTER → 2025-05-12 16:43 | Outpatient (BNV) | payer MEDICARE, SELFPAY | PROVIDERS: PCP Internal Medicine; Visit Provider Radiology Diagnostic Radiology | DX: S09.90XA Unspecified injury of head, initial encounter (principal); M25.422 Effusion, left elbow; R22.42 Localized swelling, mass and lump, left lower limb | CPT/HCPCS: 70450; 73080; 73590 ==

== ENCOUNTER 2025-05-16 08:57 | Outpatient (AMB) | payer MEDICARE, SELFPAY ==
--- NOTE | 2025-05-16 09:32 | MHC.OFFVISCO ---
Intake Intake Visit Reasons: Anticoagulation Allergies No Known Allergies Allergy (Mild, Verified 05/16/25 09:13) N/A Medication List - Last Reconciled 05/16/25 by Elenita Solorzano RN albuterol sulfate 90 mcg/actuation 2 inhalations inhalation Q4-6H PRN ascorbate calcium (vitamin C) 500 mg PO DAILY cephalexin 500 mg PO TID 7 days chair, wheel (Wheel chair) 16 inch with elevating leg rest (manual) cholecalciferol (vitamin D3) 25 mcg PO DAILY comp.stocking,knee,long,medium As directed cyproheptadine 4 mg PO BEDTIME Lactobacillus rhamnosus GG (Culturelle) 1 cap PO DAILY meloxicam 7.5 mg PO DAILY polyethylene glycol 3350 (Miralax) 17 grams PO DAILY psyllium husk (Fiber Therapy Laxative (psyllium husk)) 1.04 grams (2 x 0.52 gram) PO DAILY PRN rosuvastatin 40 mg PO DAILY sennosides (senna) 8.6 mg PO BEDTIME PRN sertraline 25 mg (1/2 x 50 mg) PO DAILY tolterodine ER 4 mg PO DAILY warfarin 5 mg See Protocol PO DAILY Nursing Note INR 3.3 out of therapeutic range Medications and supplements reviewed Patient status: 05/12/2205 -fell and has skin tear on elbow and wound on his leg ( the one with the DVT) he is being treated with antbx and to have VNA come today, [facility]NA to call [facility] after they see him to schedule another INR , he also has nurse navigation. Pt states he is forgetful and needs everything written out so he can refer to it when he forgets. Medications or supplements: cephalexin tid x 7 days - should be completed about 05/19/2025- he may also take tylenol for his leg pain. Diet: good Denies any signs and symptoms of bleeding or clotting or unusual bruising Bleeding, bruising, clotting discussed Nutritional guidance given: good Dose: will reduce warfarin while on antbx: 2.5mg today and tomorrow 5mg rest of the week then 2.5mg friday/ 5mg x 6 days F/U INR Date: this week for f/u INR ? Patient verbalizing understanding of instructions given. 1715 -still waiting for return call from VNA services- will f/u with them in am Anti-Coag Initial Assessment Social Hx Patient Tobacco Use Status: Never used Tobacco alcohol intake: never Alcohol intake frequency: does not drink Cardiovascular Hx: Other (PVD) Lung Disease HX: DVT/PE Musculoskeletal Hx: Arthritis (oa- SHOULDERS) Blood Disorder Hx: Hyperlipidemia GI Hx: Other (constipation, abscess, abd hematoma) Hx: Bladder Disorders (urinary incont), Prostate and Other Neurological Hx: Migraines/Headaches Cancer HX: Yes Psych. Illness/Depression: Yes (depression) Coding Level of Care Code Est Patient Level 1 Diagnoses Current use of anticoagulant therapy Z79.01 Results AMB INR Fingerstick AMB INR Fingerstick 3.3 Last Edit by Elenita Solorzano RN on 05/16/25 09:22 manual entry Assessment & Plan Assessment & Plan (1) Current use of anticoagulant therapy: Code(s): Z79.01 - USP (current) use of anticoagulants Category: Medical
[2025-05-16 09:57] LABS: Prothrombin Time Whole Bld POC 40.0 sec (11.1-13.5); ~PT, ~INR - Anti Coag Clinic 3.3 (0.9-1.1)
--- OUTSIDE RECORDS SUMMARY | 2025-05-16 10:02 | XMS_ITS | Clinical Summary ---
Author Organization [facility] Address [address] [place] [address] Phone Care Team Providers Care Cell Operator Name Role Phone Bobbi Harris MD Primary Care Provider [phone] Allergies No known active allergies Medications atorvastatin [...] age to complete this topic Insurance Medicare [facility] Medicare [facility] Care Teams Cell Operator Relationship Specialty Start Date End Date Bobbi Harris MD [facility] [place] [address] [place], [place] PCP - General Internal Medicine 03/04/22
== END 2025-05-16 17:13 | disposition home or self-care (01) ==
LOC: HO.ACS 08:57
PROVIDERS: PCP Internal Medicine; Visit Provider Internal Medicine Medical Oncology
DX: Z79.01 Long term (current) use of anticoagulants (principal)

== ENCOUNTER → 2025-05-16 08:57 | Outpatient (BNVA) | payer MEDICARE, SELFPAY | PROVIDERS: PCP Internal Medicine; Visit Provider Internal Medicine Medical Oncology | DX: Z51.81 Encounter for therapeutic drug level monitoring (principal); Z79.01 Long term (current) use of anticoagulants | CPT/HCPCS: 85610; 99211 ==

== ENCOUNTER 2025-05-19 08:40 | Outpatient (REF) | payer MEDICARE, SELFPAY ==
--- NOTE | ~2025-05-19 | XR_ITS ---
EXAMINATION: XR ELBOW 3 VIEWS LEFT HISTORY: M25.529 - Pain in unspecified elbow COMPARISON: Comparison is made with the prior examination dated 05/12/2025. FINDINGS: Three views of the left elbow are submitted. Osseous mineralization is normal. There is no fracture or dislocation. The joint spaces are preserved. The soft tissues are unremarkable. There is no joint effusion. XR/XR elbow LT min 3V IMPRESSION: No evidence of fracture in the left elbow. Electronically signed by: Warner Marrero MD 05/19/2025 01:09 PM EDT
--- OUTSIDE RECORDS SUMMARY | 2025-05-20 09:22 | XMS_ITS | Patient Health Record ---
Author Organization [facility] Address [address] [place] [address] Care Team Providers Care Radio Disc Jockey Name Role Phone Po Bobbi TROY Primary Care Provider Warner Sinclair [phone] Allergies No Known Allergies Reason For Referral [...] W/U Status Risk Notes Problem Weight loss (200640676) Weight loss (R63.4) Active confirmed Problem Early satiety (903502565) Early satiety (R68.81) Active confirmed Problem Barium swallow abnormal (251194941) Abnormal barium swallow (R93.3) Active confirmed Plan Of Treatment Future Test Test Name Order Date COLONOSCOPY 07/09/2012 UPPER GI ENDOSCOPY BALLOOON DILATION OF ESOPH 05/02/2022 Insurance Providers Payer Name Payer Address Payer Phone Subscriber Number Group Number Insured Name Patient Relationship to Insured Coverage Start Date Coverage End Date MEDICARE OF [place] [address] [place] [address] [id number] JOHN MINAYA Self - patient is the insured MED[employer] ATTN CLAIMS [address] [place] [address] [phone] [id number] JOHN MINAYA Self - patient is the insured Medical (General) History Medical History History ICD Code Colonoscopy was in 11-07-2008 with removal of small tubular adenomas Colon and rectal polyps-tubular adenomas Hyperlipidemia Denies [place],DM,CVA,Lung disease,renal dise ase Prostate cancer with prostat [...]
--- OUTSIDE RECORDS SUMMARY | 2025-05-20 09:22 | XMS_ITS | Clinical Summary ---
Author Organization [facility] Address [address] [facility] [address] [place] [address] Phone Care Team Providers Care Manager Neonatal Name Role Phone Bobbi Harris MD Primary Care Provider [phone] Allergies No known active allergies Medications atorvastatin [...] time each day 03/28/2022 Active aspirin (ST NADNIE) 81 MG EC tablet Take 81 mg [...] age to complete this topic Insurance Medicare [facility] Medicare [facility] Care Teams Manager Neonatal Relationship Specialty Start Date End Date Bobbi Harris MD [facility] [place] [address] [place], [place] PCP - General Internal Medicine 03/04/22
--- OUTSIDE RECORDS SUMMARY | 2025-05-20 09:22 | XMS_ITS | Patient Health Record ---
Author Organization [facility] [place] Address [address] [place] [address] Care Team Providers Care Shoe Stock Associate Name Role Phone Alan Anaya MD Primary Care Provider Davion Landry Unavailable [phone] Reason For Referral No Information Medications Medication [...] W/U Status Risk Notes Problem Plantar fasciitis (661391482) Plantar Fasciitis (728.71) Active confirmed Problem Congenital pes planus (50786843) Flat Foot, 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 confirmed Problem Pain in limb (33913400) Pain in Limb (729.5) Active confirmed Plan Of Treatment Pending Test Test Name Order Date X ray : Foot, right 2V 12/06/2013 Insurance Providers Payer Name Payer Address Payer Phone Subscriber Number Group Number Insured Name Patient Relationship to Insured Coverage Start Date Coverage End Date Medicare National [facility] [address] [place] [phone] [id number] Sukhwinder Maynard Self - patient is the insured [employer] [address] [place] [address] [id number] Sukhwinder Maynard Self - patient is the insured Medical (General) History Medical History History ICD Code prostate cancer Surgical History Surgery Date(Month/Year) prostate cancer 2000 AUS, AND BOTOX 100 UNITS INJECTED INTO B LADDER 12/31/13
== END 2025-05-19 08:41 | disposition home or self-care (01) ==
LOC: HO.HOSX 08:40
PROVIDERS: Visit Provider Physician Assistant
DX: S50.02XA Contusion of left elbow, initial encounter (principal); X58.XXXA Exposure to other specified factors, initial encounter
CPT/HCPCS: 73080; 99202

== ENCOUNTER 2025-05-19 12:35 | Outpatient (AMB) | payer MEDICARE, SELFPAY ==
--- NOTE | 2025-05-19 13:13 | MHC.OFFVIS ---
Intake Visit Reasons: OV- L elbow injury per AA Intake Note: Sukhwinder is a 89 year old right hand dominant male who presents today for a evaluation of his left elbow injury. Patient states that he didn't have a fall but he hit his arm when he tripped. He states that he is not having much pain at the moment. Patient informed me that he is taking warfarin due to a blood clot. Impression: Distal soft tissue swelling. No acute skeletal abnormality. Accompanied by: Friend Allergies No Known Allergies Allergy (Mild, Verified 05/19/25 13:15) N/A HPI HPI OV- L elbow injury per AA: Details: Mr. Maynard is an 89-year-old right-hand dominant male who presents to the office today for evaluation of left elbow injury that he sustained on 05/12/2025. He reported that he tripped in his house and hit his left elbow and left leg. He did not fall or hit his head during this incident. He presented to the emergency department where x-rays were obtained and questionable for a fracture on the medial epicondyle. He was given a sling and instructed to follow up with orthopedics outpatient for further evaluation and treatment. Upon his evaluation today the patient is no longer experiencing any pain. He denies any decreasing range of motion. [facility] Medical History Varicose veins of right lower extremity with inflammation Leg wound, right Decreased appetite Adult general medical exam Diarrhea Cellulitis Dysphagia Nausea Frequency of micturition Venous insufficiency COVID-19 virus infection Leukocytosis Normocytic anemia Hyponatremia Low sodium levels Hypercholesterolemia Prostate cancer Osteoarthritis, shoulder Surgical History History of radical prostatectomy Erectile dysfunction following urethral surgery Family History Father Diabetes Social History Household Members: Children Household Members Other:: daughter Housing: House Do you presently have visiting nurse or other home services: Yes ([facility]) Alcohol intake: never Patient Tobacco Use Status: Never used Tobacco e-Cigarette/Vaping Use: Never Used Second Hand Smoke Exposure: No Advance Directives Date on File: 08/24/21 service: No Current occupational status: retired 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 No ecchymosis, erythema, or edema. No tenderness to palpation over the olecranon. No tenderness to the medial or lateral epicondyle. NVI. Psych Appearance: grossly normal Mental Status: mental status grossly normal Attitude: cooperative Assessment & Plan Assessment & Plan (1) Left elbow contusion: Code(s): S50.02XA - Contusion of left elbow, initial encounter Category: Medical Plan Mr. Maynard is an 89-year-old right-hand dominant male who presents to the office today for evaluation of left elbow injury that he sustained on 05/12/2025. He reported that he tripped in his house and hit his left elbow and left leg. He did not fall or hit his head during this incident. He presented to the emergency department where x-rays were obtained and questionable for a fracture on the medial epicondyle. He was given a sling and instructed to follow up with orthopedics outpatient for further evaluation and treatment. Upon his evaluation today the patient is no longer experiencing any pain. He denies any decreasing range of motion. Patient has a negative exam while in the office today. He may return back to normal activities as tolerated. I suspect that the questionable lucency was likely a nutrient vessel. Repeat x-rays were obtained in the office today and reviewed by me, Agnes Guzman PA-C, of the left elbow and are negative for any acute fracture dislocation. Patient will follow up PRN, sooner if needed. Orders: Orders XR elbow LT min 3V Today M25.529 - Pain in unspecified elbow Coding Level of Care Code New Pt Level 3 (61263) Diagnoses Left elbow contusion S50.02XA
--- OUTSIDE RECORDS SUMMARY | 2025-05-19 16:48 | XMS_ITS | Clinical Summary ---
Author Organization [facility] Address [address] [facility] [address] [place] [address] Phone Care Team Providers Care Director Product Management Name Role Phone Bobbi Harris MD Primary Care Provider [phone] Allergies No known active allergies Medications atorvastatin [...] Date Acquired absence of other genital organ 09/08/19 23 06/09/2023 Dysphagia 09/08/2022 06/09/2023 Male erectile dysfunction 09/08/20222022 [...] Medicare [facility] Care Teams Director Product Management Relationship Specialty Start Date End Date Bobbi Harris MD [facility] [place] [address] [place], [place] PCP - General Internal Medicine 03/04/22
--- OUTSIDE RECORDS SUMMARY | 2025-05-19 16:48 | XMS_ITS | Patient Health Record ---
Author Organization [facility] Address [address] [place] [address] Care Team Providers Care Resistor Winder Name Role Phone Po Bobbi TROY Primary Care Provider Warner Sinclair [phone] Allergies No Known Allergies Reason For Referral [...] W/U Status Risk Notes Problem Weight loss (198061067) Weight loss (R63.4) Active confirmed Problem Early satiety (000103503) Early satiety (R68.81) Active confirmed Problem Barium swallow abnormal (282240096) Abnormal barium swallow (R93.3) Active confirmed Plan Of Treatment Future Test Test Name Order Date COLONOSCOPY 07/09/2012 UPPER GI ENDOSCOPY BALL[place]ON DILATION OF ESOPH 05/02/2022 Insurance Providers Payer Name Payer Address Payer Phone Subscriber Number Group Number Insured Name Patient Relationship to Insured Coverage Start Date Coverage End Date MEDICARE [place] [address] [place] [address] [id number] JOHN MINAYA Self - patient is the insured [employer] ATT[employer] CLAIMS [address] [place] [address] [id number] JOHN MINAYA Self - patient is the insured Medical (General) History Medical History History ICD Code Colonoscopy was in 11-07-2008 with removal of small tubular adenomas Colon and rectal polyps-tubular adenomas Hyperlipidemia Denies [place],DM,CVA,Lung disease,renal dise ase Prostate cancer with prostat [...]
--- OUTSIDE RECORDS SUMMARY | 2025-05-19 16:48 | XMS_ITS | Patient Health Record ---
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 confirmed Problem Pain in limb (14403842) Pain in Limb (729.5) Active confirmed Plan Of Treatment Pending Test Test Name Order Date X ray : Foot, right 2V 12/06/2013 Insurance Providers Payer Name Payer Address Payer Phone Subscriber Number Group Number Insured Name Patient Relationship to Insured Coverage Start Date Coverage End Date Medicare National [facility] [address] [place] [phone] [id number] Sukhwinder Maynard Self - patient is the insured [employer] [address] [place] [address] [phone] [id number] Sukhwinder Maynard Self - patient is the insured Medical (General) History Medical History History ICD Code prostate cancer Surgical History Surgery Date(Month/Year) prostate cancer 2000 AUS, AND BOTOX 100 UNITS INJECTED INTO B LADDER 12/31/13
== END 2025-05-19 13:24 | disposition home or self-care (01) ==
LOC: HO.HOS 12:36
PROVIDERS: PCP Internal Medicine; Visit Provider Physician Assistant
DX: S50.02XA Contusion of left elbow, initial encounter (principal)
CPT/HCPCS: 99203

== ENCOUNTER → 2025-05-19 12:38 | Outpatient (BNV) | payer MEDICARE, SELFPAY | PROVIDERS: Visit Provider Radiology Diagnostic Radiology | DX: M25.522 Pain in left elbow (principal) | CPT/HCPCS: 73080 ==

== ENCOUNTER 2025-06-06 15:09 | Inpatient (IN) | payer MEDICARE, SELFPAY ==
--- NOTE | ~2025-06-06 | US_ITS ---
CLINICAL HISTORY: SWELLING, R O DVT Venous duplex ultrasound left lower extremity Comparison: None provided Findings: There is thrombus extending from the mid femoral vein into the popliteal vein. The thrombus is nonocclusive at the level of the femoral vein and nearly completely occlusive at the level of the popliteal vein. The left peroneal vein was not visualized. The proximal portion of the left femoral vein, The visualized greater saphenous vein, the common femoral vein and the posterior tibial veins are patent. No popliteal cyst. IMPRESSION: Deep venous thrombosis of the left lower extremity with involvement of the femoral and popliteal veins. This document has been electronically signed by: Emily Hughes MD on 06/06/2025 19:29:02
--- NOTE | ~2025-06-06 | CT_ITS ---
CLINICAL HISTORY: overlying necrotic wound ?nec fasc CT left lower leg with IV contrast Comparison: US - US VENOUS DUPLEX LE LT - 06/06/25 18:42 EDT CR - XR TIBIA FIBULA LT 2V - 06/06/25 18:06 EDT Findings: Over the anterior lower left gonzalez there is an area of skin irregularity, skin thickening and a few tiny dots of gas in the region of the skin suggesting open wound. There is some subcutaneous fluid in this area. No abscess. No intramuscular fluid collection. There is extensive surrounding skin thickening around the lower leg, ankle and visualized portions of the foot. Extensive arterial vascular calcifications present throughout the trifurcation vessels. 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 Diffusely disease posterior tibial artery provides runoff to the foot as well as the peroneal artery. Decreased bone mineralization. No fracture deformity. No lytic or blastic bone lesion. IMPRESSION: Extensive skin thickening of the lower extremity, with apparent open wound in the lower anterior gonzalez and subjacent subcutaneous fluid. No abscess. A few tiny dots of gas noted in the region of the open wound, but no other areas of subcutaneous gas to suggest necrotizing soft tissue infection. This document has been electronically signed by: Ryan Samson MD on 06/07/2025 00:25:26
--- NOTE | ~2025-06-06 | XR_ITS ---
CLINICAL HISTORY: overlying necrotic wound 2 view left tibia-fibula Comparison: CR - XR TIBIA FIBULA LT 2V - 05/12/25 19:06 EDT Findings No acute fracture. No dislocation. There is osteopenia. There is no evidence of osteomyelitis. There is edema of the soft tissues. No joint effusion. No significant arthritic change. No radiopaque foreign body. IMPRESSION: No evidence of osteomyelitis. This document has been electronically signed by: Emily Hughes MD on 06/06/2025 18:46:08
[2025-06-06 15:15] VITALS: BP 132/69; PULSE 71; RESP 16; TEMP 36.5; O2SAT 95; BMI 21.5
--- NOTE | 2025-06-06 15:15 | ED.GENADULT ---
HPI - General Adult General Chief complaint: Wound/Laceration Stated complaint: Blood clot L leg? Time Seen by Provider: 06/06/25 17:19 Source: patient and family (son) Mode of arrival: ambulatory Limitations: no limitations History of Present Illness ED Provider: USHA WALSH PA-C HPI narrative: 89 y/o M with PMH significant for DVT on Warfarin, UTI, achalasia, SIADH, HLD, and gait instability presents to the ED with his son for evaluation of wound to left lower leg. Patient reports a fall about a month ago where he bumped his lower left leg. He was evaluated at our facility at that time for pain and swelling to the area. He was diagnosed with a hematoma/cellulitis and discharged home on Keflex. He reports completing the entire course of antibiotics. He has a VNA come to his home once a week to change his dressings. His VNA noted concern for worsening infection today, advised he come to the ED for further evaluation. Denies any significant bleeding from the wound. Reports compliance with his warfarin. Has his INR checked weekly. He denies any complaints/concerns at present. Reports his leg feels itchy/burning, like ants crawling up . Reports chronic left ankle edema. Denies any calf pain. Reports hx of b/l DVTs, the most recent being LLE in 2024. Denies fever, chills, CP, SOB, N/V. Related Data Home Medications ?Medication ?Instructions ?Recorded ?Confirmed cholecalciferol (vitamin D3) 25 25 mcg PO DAILY 01/17/21 06/03/25 mcg (1,000 unit) capsule albuterol sulfate 90 mcg/actuation 2 inh inhalation Q4-6H PRN Wheezing 02/13/24 06/03/25 breath activated powder inhaler ascorbate calcium (vitamin C) 500 500 mg PO DAILY 02/13/24 06/03/25 mg tablet sennosides 8.6 mg capsule (senna) 8.6 mg PO BEDTIME PRN 05/11/25 06/03/25 Previous Rx's ?Medication ?Instructions ?Recorded comp.stocking,knee,long,medium #2 ea 08/13/22 polyethylene glycol 3350 17 17 g PO DAILY #510 grams 04/23/23 gram/dose oral powder (Miralax) Lactobacillus rhamnosus GG 15 1 cap PO DAILY #90 caps 08/04/23 billion cell sprinkle capsule (Culturelle) chair, wheel (Wheel chair) #1 ea 08/05/23 rosuvastatin 40 mg tablet 40 mg PO DAILY #30 tabs 08/27/24 tolterodine 4 mg capsule,extended 4 mg PO DAILY #90 caps 12/01/24 release 24 hr meloxicam 7.5 mg tablet 7.5 mg PO DAILY #30 tabs 12/21/24 psyllium husk 0.52 gram capsule 1.04 g (2 x 0.52 gram) PO DAILY 02/22/25 (Fiber Therapy Laxative (psyllium PRN constipation #60 caps husk)) sertraline 50 mg tablet 25 mg (1/2 x 50 mg) PO DAILY #90 03/16/25 tabs cyproheptadine 4 mg tablet 4 mg PO BEDTIME #90 tabs 04/05/25 warfarin 5 mg tablet 5 mg PO DAILY #30 tabs 06/01/25 Allergies Allergy/AdvReac Type Severity Reaction Status Date / Time No Known Allergies Allergy Mild N/A Verified 06/06/25 15:18 Review of Systems Review of Systems: Yes all other systems are reviewed and are negative PMFSH Past Medical History Attestation statement: The following information was validated with the patient. Source: old records reviewed and nursing notes reviewed Medical History Varicose veins of right lower extremity with inflammation Leg wound, right Decreased appetite Adult general medical exam Diarrhea Cellulitis Dysphagia Nausea Frequency of micturition Venous insufficiency COVID-19 virus infection Leukocytosis Normocytic anemia Hyponatremia Low sodium levels Hypercholesterolemia Prostate cancer Osteoarthritis, shoulder Surgical History History of radical prostatectomy Erectile dysfunction following urethral surgery Family History Family History Father Diabetes Social History Social History Household Members: Children Household Members Other:: daughter Housing: House Do you presently have visiting nurse or other home services: Yes ([facility]) Alcohol intake: never Patient Tobacco Use Status: Never used Tobacco e-Cigarette/Vaping Use: Never Used Second Hand Smoke Exposure: No Advance Directives: Yes Advance Directives on File: Yes Advance Directives Date on File: 08/24/21 Do you have a plan to hurt others: No Plan service: No Current occupational status: retired 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 Skin: Warm, dry, intact. No rashes or lesions. Head: Normocephalic, atraumatic. EENT: Hearing is intact b/l. Conjunctiva clear. PERRLA. EOM intact. Moist mucous membranes.? Cardiac: Chest wall symmetric. RRR Lungs: Normal respiratory effort without accessory muscle use. CTA bilaterally Abdomen: Soft, non-tender, non-distended Ext: + see photo of left lower leg below. large area of erythema with open wound and central necrosis. purulent discharge noted. no palpable crepitus or fluctuance. ttp. warm. no calf tenderness. palpable dp pulse. Neuro: AOx3. Normal speech. Ambulating with steady gait. Course Course Course Narrative: Rapid medical examination performed in triage by Enedelia Hopper PA-C. Patient is an 89 year old assigned male at presenting to the emergency department with left lower leg pain / swelling. Patient states that he has a known DVT of the left lower leg and is on warfarin. Detailed physical exam and review of systems are deferred to the manager engagement. Labs ordered. Patient placed back in the waiting room pending room availability and results. Reevaluation(s) Reevaluation #1: 1638 -- CBC without leukocytosis or left shift. Normocytic anemia, H and H stable when compared to priors. Chemistry without acute electrolyte abnormality requiring intervention. Renal function at baseline. Lactic WNL. Liver function at baseline. Elevated inflammatory markers. INR wnl at 2.6. X-ray left tib-fib does not demonstrate osteomyelitis. We did obtain a venous duplex of the left lower extremity, when compared to prior exam the extent of involvement of the femoral vein is improved with recanalization of proximal aspects. Thrombus within the mid and distal aspect of the femoral vein are similar to the prior study. Possible interval worsening of thrombosis at the level of the popliteal vein. Nonvisualization of the peroneal veins on the current exam. > I did reach out to vascular surgeon dr. mcdaniel with recommendation to continue warfarin. No other change to management. > Spoke with hospitalist Dr. Lowry who is requesting CT LLE prior to admission. This has been ordered. Will follow. 0038 -- CT left lower extremity showing extensive skin thickening of the lower extremity with apparent open wound in the lower anterior gonzalez and subjacent subcutaneous fluid, no abscess. A few tiny dots of gas noted in the region of the open wound but no other areas of subcutaneous gas to suggest necrotizing soft tissue infection. > discussed with hospitalist, Dr. Lowry. Patient to be admitted to medicine for further management. stable at this time. Medications Administered Discontinued Medications Generic Name Dose Route Start Last Admin Trade Name Freq PRN Reason Stop Dose Admin Cefazolin Sodium/Dextrose 2 gm in 50 mls @ 100 mls/hr 06/06/25 20:00 06/06/25 22:01 Ancef IV 06/06/25 20:29 Infused ONCE ONE Infusion Iohexol 85 ml 06/06/25 23:30 06/06/25 23:33 Iohexol 350 Mg/Ml 100 Ml Infus..Btl IV 06/06/25 23:31 85 ml ONCE ONE Administration Medical Decision Making Medical Decision Making [facility] Narrative: 89 y/o M with PMH significant for DVT on Warfarin, UTI, achalasia, SIADH, HLD, and gait instability presents to the ED with his son for evaluation of wound to left lower leg. Vital signs stable. Afebrile. He is well-appearing in no acute distress. Lying comfortably on exam bed reading a book. on exam, large area of erythema with open wound and central necrosis. purulent discharge noted. no palpable crepitus or fluctuance. ttp. warm. no calf tenderness. palpable dp pulse. Differential diagnosis includes necrotic wound, hematoma, necrotizing fasciitis, abscess, osteomyelitis Differential Diagnosis Differential Diagnoses: The differential diagnosis associated with the presentation includes as above. Admission/Observation Consideration of admission/observation: Escalation of care including admission/observation considered Patient to be admitted to medicine for management of necrotic skin wound Consult Healthcare Provider Management of the patient was discussed with: Hospitalist (dr. lowry) and Emergency Management Program Specialist (vascular - dr. mcdaniel) Lab Data MDM Lab Attestation statement: I reviewed the patient's lab results. as above. 06/06/25 16:38 06/06/25 16:38 Labs: Lab Results 06/06/25 06/06/25 06/06/25 Range/Units 16:38 18:38 20:51 WBC 8.4 (4.8-10.8) X10*3/uL RBC 4.11 L (4.60-5.80) X10*6/uL Hgb 13.0 L (14.0-18.0) g/dl Hct 39.2 L (42.0-52.0) % MCV 95.4 (80.0-98.0) fL MCH 31.6 (27.0-33.0) pg MCHC 33.2 (31.0-36.0) g/dl RDW 14.2 (11.0-16.0) % Plt Count 196 (160-400) X10*3/uL MPV 8.9 L (9.4-12.4) fL Immature Gran % (Auto) 0.6 H (0.0-0.4) % Neut % (Auto) 67.8 (45-73) % Lymph % (Auto) 21.6 (20-40) % Jack % (Auto) 8.2 (2-11) % Eos % (Auto) 1.3 (0-4) % Baso % (Auto) 0.5 (0-2) % Lymph # (Auto) 1.8 (1.2-4.9) X10*3/uL Jack # (Auto) 0.7 (0.1-1.2) X10*3/uL Eos # (Auto) 0.1 (0.0-0.4) X10*3/uL Baso # (Auto) 0.0 (0.0-0.2) X10*3/uL Abs Immat Gran (auto) 0.05 H (0.00-0.03) X10*3/uL Absolute Neuts (auto) 5.7 (2.0-8.3) x10*3/uL Absolute Nucleated RBC 0.000 (0.0-0.012) X10*3/uL Nucleated RBC % (auto) 0.0 (0.0-0.2) /100WBC ESR 58 H (0-15) MM/HR PT 29.8 H D (10.9-12.4) SEC INR 2.6 H (0.9-1.1) Sodium 138 (135-145) mmol/L Potassium 4.4 (3.3-5.1) mmol/L Chloride 107 (96-108) mmol/L Carbon Dioxide 25 (22-29) mmol/L Anion Gap 10 L (12-20) BUN 18 H (9-16) mg/dL Creatinine 0.85 (0.5-1.4) mg/dL Estim Creat Clear Calc 56.5 Estimated GFR > 60 Random Glucose 82 (60-115) mg/dL Lactic Acid 0.8 (0.5-2.0) mmol/L Calcium 9.7 (8.4-10.2) mg/dL Total Bilirubin 0.4 (0.0-1.0) mg/dL AST 21 (5-37) U/L ALT 11 (0-40) U/L Alkaline Phosphatase 80 (39-117) U/L C-Reactive Protein 2.75 H (< or = 0.50) mg/dL Total Protein 7.2 (6.5-8.0) g/dL Albumin 3.5 (3.5-5.0) g/dL Urine Color Yellow Urine Appearance Clear Urine pH 5.5 (5.0-9.0) Ur Specific [place] 1.010 (1.005-1.025) Urine Protein Trace (Neg-Trace) mg/dL Urine Glucose (UA) Negative (Negative) mg/dL Urine Ketones Negative (Negative) mg/dL Urine Blood Trace H (Negative) Urine Nitrite Negative (Negative) Ur Leukocyte Esterase Negative (Negative) Urine RBC 3-5 H (0-2) /HPF Urine WBC 0-5 (0-5) /HPF Ur Squamous Epith Cells 0-2 (0-2) /HPF Urine Bacteria None Seen (None Seen) Hyaline Casts 0-2 (0-2) /LPF Independent Interpretation I performed an independent interpretation of an: Plain X-Ray, Ultrasound and CT Scan Interpretation: xr left tib/fib without osseous abnormality venous duplex LLE w/ clot to L femoral vv ct LLE without significant subcutaneous gas Radiology Impression Discussion of test interpretation with radiology: I have reviewed the radiologist's reading. Radiologist Impression: Procedure(s): US venous duplex LE LT Accession Number(s): [id number] cc: Bobbi Harris MD; Usha Walsh~ Reason for Exam: SWELLING, R/O DVT ADDENDUMThis document has been electronically signed by: Ni Pratt on 06/06/2025 19:32:19 ADDENDUM: Addendum: Comparison is made with a prior study dated March 14, 2025. When compared to the prior exam, the extent of involvement of the femoral vein is improved with recanalization of proximal aspects. Thrombus within the mid and distal aspects of the femoral vein are similar to the prior study. Possible interval worsening of thrombosis at the level of the popliteal vein. Nonvisualization of the peroneal veins on the current exam. This document has been electronically signed by: Emily Hughes MD on 06/06/2025 21:07:59 Addendum Dictated By: Emily Hughes MD Addendum Signed By: <Electronically signed by Emily Hughes MD in [place]> 06/06/252107 Addendum Cosigned By: DD/ TD/TT: 06/06/25 ADDENDUMThis document has been electronically signed by: Emily Hughes MD on 06/06/2025 19:29:02 ADDENDUM: This report was discussed with Usha Walsh on Jun 06, 2025 19:31:00 EDT. This document has been electronically signed by: Ni Pratt on 06/06/2025 19:32:19 Addendum Dictated By: Emily Hughes MD Addendum Signed By: <Electronically signed by Emily Hughes MD in [place]> 06/06/251931 Addendum Cosigned By: DD/ TD/TT: 06/06/25 CLINICAL HISTORY: SWELLING, R O DVT Venous duplex ultrasound left lower extremity Comparison: None provided Findings: There is thrombus extending from the mid femoral vein into the popliteal vein. The thrombus is nonocclusive at the level of the femoral vein and nearly completely occlusive at the level of the popliteal vein. The left peroneal vein was not visualized. The proximal portion of the left femoral vein, The visualized greater saphenous vein, the common femoral vein and the posterior tibial veins are patent. No popliteal cyst. IMPRESSION: Deep venous thrombosis of the left lower extremity with involvement of the femoral and popliteal veins. This document has been electronically signed by: Emily Hughes MD on 06/06/2025 19:29:02 Procedure(s): XR tibia fibula LT 2V Accession Number(s): [id number] cc: Bobbi Harris MD; Usha Walsh~ Reason for Exam: overlying necrotic wound CLINICAL HISTORY: overlying necrotic wound 2 view left tibia-fibula Comparison: CR - XR TIBIA FIBULA LT 2V - 05/12/25 19:06 EDT Findings No acute fracture. No dislocation. There is osteopenia. There is no evidence of osteomyelitis. There is edema of the soft tissues. No joint effusion. No significant arthritic change. No radiopaque foreign body. IMPRESSION: No evidence of osteomyelitis. This document has been electronically signed by: Emily Hughes MD on 06/06/2025 18:46:08 Procedure(s): CT lower leg LT w IV con Accession Number(s): [id number] cc: Bobbi Harris MD; Usha Walsh~ Report Number: [id number]: Total DLP = 282.00 mGy-cm Reason for Exam: overlying necrotic wound ?nec fasc CLINICAL HISTORY: overlying necrotic wound ?nec fasc CT left lower leg with IV contrast Comparison: US - US VENOUS DUPLEX LE LT - 06/06/25 18:42 EDT CR - XR TIBIA FIBULA LT 2V - 06/06/25 18:06 EDT Findings: Over the anterior lower left gonzalez there is an area of skin irregularity, skin thickening and a few tiny dots of gas in the region of the skin suggesting open wound. There is some subcutaneous fluid in this area. No abscess. No intramuscular fluid collection. There is extensive surrounding skin thickening around the lower leg, ankle and visualized portions of the foot. Extensive arterial vascular calcifications present throughout the trifurcation vessels. 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 Diffusely disease posterior tibial artery provides runoff to the foot as well as the peroneal artery. Decreased bone mineralization. No fracture deformity. No lytic or blastic bone lesion. IMPRESSION: Extensive skin thickening of the lower extremity, with apparent open wound in the lower anterior gonzalez and subjacent subcutaneous fluid. No abscess. A few tiny dots of gas noted in the region of the open wound, but no other areas of subcutaneous gas to suggest necrotizing soft tissue infection. This document has been electronically signed by: Ryan Samson MD on 06/07/2025 00:25:26 Independent Historian Clinical information obtained from an independent historian. History obtained from or confirmed by: Other (son) External Record Review External record reviewed: Inpatient record Prescription Management I considered prescription management with: Antibiotic Chronic Conditions Patient?s care impacted by: Other (DVT) Social Determinants Patient?s care significantly limited by Social Determinants of Health including: Other Social Determinant of Health Critical Care Time Critical Care Time Critical Care Time: Yes Total Critical Care Time: 47 Attestation: Critical care time in the amount of 47 minutes has been provided to the patient in terms of direct patient care, frequent reevaluation, consultation with vascular and hospitalist, review and interpretation of medical data and results, and management of potentially life-threatening conditions. This is all outside of any medical procedures. Discharge Plan Discharge Clinical Impression: Nonhealing skin ulcer Patient Disposition: Admitted As Inpatient Print Language: Swedish
[2025-06-06 16:43] LABS: MANUAL DIFF FLAG NO
[2025-06-06 16:46] LABS: Hematocrit 39.2 % (42.0-52.0); Hemoglobin 13.0 g/dl (14.0-18.0); Imm Gran Abs Auto 0.05 X10*3/uL (0.00-0.03); Imm Gran Pct Auto 0.6 % (0.0-0.4); Lymphocytes Absolute Auto 1.8 X10*3/uL (1.2-4.9); Mean Corpuscular HGB Conc 33.2 g/dl (31.0-36.0); Mean Corpuscular Hemoglobin 31.6 pg (27.0-33.0); Mean Corpuscular Volume 95.4 fL (80.0-98.0); NRBC Abs Auto 0.000 X10*3/uL (0.0-0.012); NRBC Pct Auto 0.0 /100WBC (0.0-0.2); Platelet Count 196 X10*3/uL (160-400); Red Blood Count 4.11 X10*6/uL (4.60-5.80); White Blood Count 8.4 X10*3/uL (4.8-10.8)
[2025-06-06 16:56] LABS: INTERNATIONAL NORM RATIO 2.6 (0.9-1.1); Prothrombin Time 29.8 SEC (10.9-12.4)
[2025-06-06 17:01] LABS: Alanine Aminotransferase 11 U/L (0-40); Albumin Level 3.5 g/dL (3.5-5.0); Alkaline Phosphatase 80 U/L (39-117); Anion Gap 10 (12-20); Aspartate Amino Transferase 21 U/L (5-37); Blood Urea Nitrogen 18 mg/dL (9-16); Calcium 9.7 mg/dL (8.4-10.2); Carbon Dioxide 25 mmol/L (22-29); Chloride 107 mmol/L (96-108); Creatinine Clr Calc Pharmacy 56.5; Estimated Glomerular Filt Rate > 60; Potassium 4.4 mmol/L (3.3-5.1); Sodium 138 mmol/L (135-145); Total Protein 7.2 g/dL (6.5-8.0)
[2025-06-06 17:28] VITALS: BP 137/65; PULSE 70; RESP 16; TEMP 36.6; O2SAT 98
[2025-06-06 18:55] LABS: Appearance Urine Clear; Glucose Urine UA Negative (Negative); PH 5.5 (5.0-9.0); Specific Gravity - Urine 1.010 (1.005-1.025); UMIC TRIGGER UACC YES
--- OUTSIDE RECORDS SUMMARY | 2025-06-06 19:45 | XMS_ITS | Clinical Summary ---
Author Organization [facility] Address [address] [place] [address] Phone Care Team Providers Care Anesthesia Resident Name Role Phone Bobbi Harris MD Primary Care Provider [phone] Allergies No known active allergies Medications atorvastatin [...] age to complete this topic Insurance Medicare [facility] Medicare [facility] Care Teams Anesthesia Resident Relationship Specialty Start Date End Date Bobbi Harris MD [facility] [address] [place], [place] PCP - General Internal Medicine 03/04/22
--- OUTSIDE RECORDS SUMMARY | 2025-06-06 19:45 | XMS_ITS | Patient Health Record ---
Author Organization [facility] Address [address] [place] [address] Care Team Providers Care Manager Private Name Role Phone Po Bobbi TROY Primary Care Provider Warner Sinclair [phone] Allergies No Known Allergies Reason For Referral [...] W/U Status Risk Notes Problem Weight loss (935366097) Weight loss (R63.4) Active confirmed Problem Early satiety (456015886) Early satiety (R68.81) Active confirmed Problem Barium swallow abnormal (348692947) Abnormal barium swallow (R93.3) Active confirmed Plan Of Treatment Future Test Test Name Order Date COLONOSCOPY 07/09/2012 UPPER GI ENDOSCOPY [place] DILATION OF ESOPH 05/02/2022 Insurance Providers Payer Name Payer Address Payer Phone Subscriber Number Group Number Insured Name Patient Relationship to Insured Coverage Start Date Coverage End Date MEDICARE [place] [address] [place] [address] [id number] JOHN MINAYA Self - patient is the insured [employer] ATT[employer] CLAIMS [address] [place] [address] [id number] JOHN MINAYA Self - patient is the insured Medical (General) History Medical History History ICD Code Colonoscopy was in 11-07-2008 with removal of small tubular adenomas Colon and rectal polyps-tubular adenomas Hyperlipidemia Denies [place],DM,CVA,Lung disease,renal dise ase Prostate cancer with prostat [...]
--- OUTSIDE RECORDS SUMMARY | 2025-06-06 19:45 | XMS_ITS | Patient Health Record ---
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, 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 confirmed Problem Pain in limb (76202824) Pain in Limb (729.5) Active confirmed Plan Of Treatment Pending Test Test Name Order Date X ray : Foot, right 2V 12/06/2013 Insurance Providers Payer Name Payer Address Payer Phone Subscriber Number Group Number Insured Name Patient Relationship to Insured Coverage Start Date Coverage End Date Medicare [facility] [address] [place] [id number] [phone] [id number] Sukhwinder Maynard Self - patient is the insured [employer] [address] [place] [address] [id number] Sukhwinder Maynard Self - patient is the insured Medical (General) History Medical History History ICD Code prostate cancer Surgical History Surgery Date(Month/Year) prostate cancer 2000 AUS, AND BOTOX 100 UNITS INJECTED INTO B LADDER 12/31/13
[2025-06-06 20:23] VITALS: BP 118/73; PULSE 74; RESP 16; TEMP 36.8; O2SAT 98
[2025-06-06] MEDS: iohexoL 350 MG/ML 100 ML INFUS..BTL 85 ML IV (23:33)
--- NOTE | 2025-06-07 00:58 | P.HPHOSP_ITS ---
History of Present Illness Date of Service: 06/07/25 Attending physician on admission: Abdullahi Sheikh Chief Complaint: left leg wound infection worse Patient is a 89-year-old male with past medical history hypercoagulable state with DVTs in right (05/2023) and left (03/2025)lower extremities,? MUGA, IVC filter in place, AMS 800 (do not place feliz catheter) s/p prostate cancer and prostaectomy due to chronic urinary incontinence, UTI, OA B shoulders with cortisol injections, Achalasia, Anosomia (loss of smell), SIADH, constipation, recent falls presents to ED today after being seen by VNA nurse that is currently managing chronic Left lower leg wound. Per nursing, wound looked more infected and dressing was saturated in blood and drainage. Pt currently denies any pain in affected limb and is able to ambulate and bear weight using cane. Please note that after extensive review of pt's chart, this Left lower leg wound originated back in 01/2025 when pt experienced as skin tear to this area while working in his garden. Pt's leg ran into open shoots that pt had just cut in the garden. Pt stated he was asked about the tetanus and was told he was up to date and did not require the tetanus shot. Since then, the wound has only gotten worse and has opened to the extent it is now with eschar on the surface. Pt has not been seen by a surgeon, wound clinic or ID so far. 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 Patient states he originally was on Eliquis but could no longer afford the medication and was changed over to Coumadin by his PCP. Currently patient has been on Coumadin for a month and his INR is running 2.6 and he currently takes 5 mg per day. Patient's blood testing at home is every Friday. Workup in the emergency department included Dopplers of the left lower extremity and patient continues to have a DVT stemming from the femoral vein to the popliteal vein. The DVT is nonocclusive until it gets to the popliteal vein where it is completely occlusive. Patient has no pain in the affected area or skin changes. X-ray of the tib-fib area notes no acute fracture or dislocation with osteopenia. There is no evidence of osteomyelitis or joint effusion. Patient also underwent a CT of the left lower extremity and there is evidence of subjacent subcutaneous fluid with no abscess and there are few tiny dots of gas noted in the region of the open wound but no other areas of subcutaneous gas to suggest necrotizing soft tissue infection. Patient has no leukocytosis and lactic acid is normal. Sed rate and CRP are both elevated. Patient was started on Ancef in the ED. Blood cultures were collected prior. Wound culture also collected. Patient currently lives in his home and his son has now moved in to provide support. Patient is no longer driving. The visiting nurse has been following patient for the last month. Review of Systems 2 Review of Systems: Patient denies any chest pain, shortness of breath at rest or with exertion, abdominal pain, nausea or vomiting. Patient has not had any fever, chills, night sweats. Patient denies any recent falls resulting in injury. Patient has been using a cane and notices that his gait is more of a shuffle but patient can bear weight on the affected leg. Patient denies any unexpected weight loss. Yes all other systems are reviewed and are negative [facility] Medical History Varicose veins of right lower extremity with inflammation Leg wound, right Decreased appetite Adult general medical exam Diarrhea Cellulitis Dysphagia Nausea Frequency of micturition Venous insufficiency COVID-19 virus infection Leukocytosis Normocytic anemia Hyponatremia Low sodium levels Hypercholesterolemia Prostate cancer Osteoarthritis, shoulder Cognitive capacity: Alert and orientated x3 Functional capacity: uses cane/walker (Patient can bear weight on the affected leg) Family History Father Diabetes Surgical History History of radical prostatectomy Erectile dysfunction following urethral surgery Social History Household Members: Children Household Members Other:: daughter Housing: House Do you presently have visiting nurse or other home services: Yes ([facility]) Alcohol intake: never Patient Tobacco Use Status: Never used Tobacco e-Cigarette/Vaping Use: Never Used Second Hand Smoke Exposure: No Advance Directives: Yes Advance Directives on File: Yes Advance Directives Date on File: 08/24/21 Do you have a plan to hurt others: No Plan service: No Current occupational status: retired 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 Current occupational exposures/hazards: Yes (worked 'near' asbestos) Cognitive needs: Yes (cane) Hearing needs: No Vision needs: Yes Ebola Risk: Travel/Contact With Anyone From Affected Area/s: No Has Patient Experienced Ebola Symptoms: No Meds Allergies Allergy/AdvReac Type Severity Reaction Status Date / Time No Known Allergies Allergy Mild N/A Verified 06/06/25 15:18 Active Medications: Current Medications Acetaminophen (Acetaminophen 325 Mg Tablet) 650 mg PO Q6H PRN PRN Reason: Pain, Mild 1-3,fever,headache Albuterol/Ipratropium (Albuterol/Iprat 2.5/0.5mg 3 Ml Ampul.Neb) 3 ml INHALE Q4H PRN PRN Reason: Shortness of Breath/Wheezing Calcium Carbonate (Calcium Carbonate 750 Mg Tab.Chew) 750 mg PO Q4H PRN PRN Reason: Heartburn Cefazolin Sodium/Dextrose (Ancef) 2 gm in 50 mls @ 100 mls/hr IV Q8H JAY Magnesium Hydroxide (Milk Of Magnesia 30 Ml Oral.Susp) 30 ml PO DAILY PRN PRN Reason: Constipation Melatonin (Melatonin 3 Mg Tablet) 6 mg PO BEDTIME PRN PRN Reason: Insomnia Ondansetron HCl (Ondansetron Hcl 4 Mg/2 Ml Vial) 4 mg IVPUSH Q8H PRN PRN Reason: Nausea and Vomiting Polyethylene Glycol (Polyethylene Glycol 3350 17 Gm Powd.Pack) 17 gm PO DAILY PRN PRN Reason: Constipation Senna (Sennosides 8.6 Mg Tablet) 17.2 mg PO BEDTIME JAY Sodium Chloride (0.9 % Sodium Chloride Flush 3 Ml Syringe) 3 ml IVFLUSH QSHIFT [facility] Home Medications ?Medication ?Instructions ?Recorded ?Confirmed ?Last Taken ?Type cholecalciferol (vitamin D3) 25 25 mcg PO DAILY 06/03/25 04/01/23 History mcg (1,000 unit) capsule albuterol sulfate 90 mcg/actuation 2 inh inhalation Q4 -6H PRN Wheezing 02/13/24 06/03/25 Unknown History breath activated powder inhaler ascorbate calcium (vitamin C) 500 500 mg PO DAILY 03/3106/03/25 Unknown History mg tablet sennosides 8.6 mg capsule (senna) 8.6 mg PO BEDTIME MD N 05/11/25 06/03/25 Unknown History Physical Exam 2 Vital Signs and Narrative: Vital Signs: Last Vital Signs Temp 98.3 F 06/06/25 20:23 Pulse 74 06/06/25 20:23 Resp 16 06/06/25 20:23 BP 118/73 06/06/25 20:23 Pulse Ox 98 06/06/25 20:23 O2 Del Method Room Air 06/06/25 20:23 BMI result Body Mass Index 21.5 Alert and orientated X3, able to give good history. Neuro: CN II-X11 intact, no deficits, visual acuity intact EYES: PERRLA, EOM intact, sclerae nonicteric, conjunctiva pink, glasses on ENT: hearing intact, no issues with swallowing, uvula midline, lips moist, nares patent no epistaxis Cardiac: S1 S2 RRR, no murmur, no JVD, no edema in Lower ext's, edema notd LLE gonzalez where wound is located Pulmonary: lungs clear to auscultation B Abdominal: BS active in all 4 quadrants, no guarding, tenderness, rebounding MSK: strength 4/5 upper and lower extremities : no CVA tenderness no bladder distension Extremities: no edema in lower extremities, PT and DP pulses palpable +2, chronic skin discoloration bilaterally Psych: mood stable, judgement and insight good Skin: Circular open wound 3 by 2 (estimated) mid gonzalez, layer of eschar in the middle of the wound, with collection of wound culture noted that wound is at least a 1/2 inch deep with mostly bloody, serosanguinous drainage minimal granulation borders are uneven, unattached, with no obvious maceration Results Labs 06/06/25 16:38 06/06/25 16:38 Labs: Laboratory Results - last 24 hr 06/06/25 06/06/25 06/06/25 16:38 18:38 20:51 MCV 95.4 MCH 31.6 MCHC 33.2 RDW 14.2 Plt Count 196 MPV 8.9 L Immature Gran % (Auto) 0.6 H Neut % (Auto) 67.8 Lymph % (Auto) 21.6 [place] % (Auto) 8.2 Eos % (Auto) 1.3 Baso % (Auto) 0.5 Lymph # (Auto) 1.8 [place] # (Auto) 0.7 Eos # (Auto) 0.1 Baso # (Auto) 0.0 Abs Immat Gran (auto) 0.05 H Absolute Neuts (auto) 5.7 Absolute Nucleated RBC 0.000 Nucleated RBC % (auto) 0.0 ESR 58 H PT 29.8 H D INR 2.6 H Anion Gap 10 L Estim Creat Clear Calc 56.5 Estimated GFR > 60 Random Glucose 82 Lactic Acid 0.8 Calcium 9.7 Total Bilirubin 0.4 AST 21 ALT 11 Alkaline Phosphatase 80 C-Reactive Protein 2.75 H Total Protein 7.2 Albumin 3.5 Urine Color Yellow Urine Appearance Clear Urine pH 5.5 Ur Specific [place] 1.010 Urine Protein Trace Urine Glucose (UA) Negative Urine Ketones Negative Urine Blood Trace H Urine Nitrite Negative Ur Leukocyte Esterase Negative Urine RBC 3-5 H Urine WBC 0-5 Ur Squamous Epith Cells 0-2 Urine Bacteria None Seen Hyaline Casts 0-2 ECG Prior ECG tracings: not available for review Imaging Radiologist's Impressions: Lower extremity CT IMPRESSION: Extensive skin thickening of the lower extremity, with apparent open wound in the lower anterior gonzalez and subjacent subcutaneous fluid. No abscess. A few tiny dots of gas noted in the region of the open wound, but no other areas of subcutaneous gas to suggest necrotizing soft tissue infection. Venous duplex IMPRESSION: Deep venous thrombosis of the left lower extremity with involvement of the femoral and popliteal veins. Tibula fibula x-ray Findings No acute fracture. No dislocation. There is osteopenia. There is no evidence of osteomyelitis. There is edema of the soft tissues. No joint effusion. No significant arthritic change. No radiopaque foreign body. IMPRESSION: No evidence of osteomyelitis. Assessment and Plan (1) Leg wound, left: Qualifiers: Encounter type: initial encounter Qualified Code(s): S81.802A - Unspecified open wound, left lower leg, initial encounter Status: Acute (2) DVT (deep venous thrombosis): Qualifiers: Affected thrombotic vein of extremity: popliteal Chronicity: acute DVT location: lower extremity Laterality: right Qualified Code(s): I82.431 - Acute embolism and thrombosis of right popliteal vein Status: Acute (3) Current use of anticoagulant therapy: Status: Acute Plan Patient is a 89-year-old male with past medical history hypercoagulable state with DVTs in right (05/2023) and left (03/2025)lower extremities,? MUGA, IVC filter in place, AMS 800 (do not place feliz catheter) s/p prostate cancer and prostaectomy due to chronic urinary incontinence, UTI, OA B shoulders with cortisol injections, Achalasia, Anosomia (loss of smell), SIADH, constipation, recent falls presents to ED today after being seen by VNA nurse that is currently managing chronic Left lower leg wound. Per nursing, wound looked more infected and dressing was saturated in blood and drainage. Pt currently denies any pain in affected limb and is able to ambulate and bear weight using cane. Left leg wound originated 01/07/2025 from skin tear while gardening Wound culture collected Blood cultures pending Patient is started on Ancef 2 g q.8 hours No leukocytosis and lactate acid is normal No evidence of sepsis on admission Infectious disease consulted Vascular surgery consulted noting history of peripheral vascular disease which may be inhibiting healing Surgery consulted for possible debridement Wound care consultation placed as patient may need follow-up in the Wound Care Clinic as an outpatient Patient currently has home care nursing managing wound in the home DVT LLE ( HX of R DVT 2022, resoled while on Eliquis per pt) Originally diagnosed 03/14/2025 Originally on Eliquis but due to cost was changed over to Coumadin 1 month prior Daily INR Currently taking 5 mgs of coumadin daily, INR checked every Friday Patient able to ambulate without pain and can bear weight on left lower extremity using cane Hypercoagulable state seen by Khushboo 04/13/2025 Found pt with posiive IGG [place], ? MUGA although benign could be contributing to his hypercoagulable state noting the current presence of DVT in the left lower extremity that is occlusive while being on Coumadin Khushboo consulted History of prostate cancer, prostatectomy in placement of the AMS 800 for severe urinary incontinence Avoid use of Feliz catheter UA ordered and pending Recent UTI resolved, patient currently asymptomatic Patient follows an outpatient with Dr. Portillo with pt are [facility] DVT prophylaxis: Coumadin, INR currently 2.6 Med rec pending DNR DNI Quality Stroke Does the patient have a stroke diagnosis?: No Reason for No Anti-thrombotic by Day Two: N/A - Med Ordered (Coumadin) VTE Prior VTE?: Yes VTE Risk Level:: Medical - moderate - high VTE Device Contraindication: Treatment Not Tolerated VTE Drug Contraindication: N/A - Med Ordered
[2025-06-07 04:00] VITALS: BP 126/72; PULSE 72; RESP 18; TEMP 36.6; O2SAT 98
[2025-06-07 06:00] VITALS: BMI 23.7
[2025-06-07 07:29] LABS: MANUAL DIFF FLAG NO
[2025-06-07 07:32] LABS: Hematocrit 36.9 % (42.0-52.0); Hemoglobin 12.4 g/dl (14.0-18.0); Imm Gran Abs Auto 0.05 X10*3/uL (0.00-0.03); Imm Gran Pct Auto 0.6 % (0.0-0.4); Lymphocytes Absolute Auto 1.6 X10*3/uL (1.2-4.9); Mean Corpuscular HGB Conc 33.6 g/dl (31.0-36.0); Mean Corpuscular Hemoglobin 31.7 pg (27.0-33.0); Mean Corpuscular Volume 94.4 fL (80.0-98.0); NRBC Abs Auto 0.000 X10*3/uL (0.0-0.012); NRBC Pct Auto 0.0 /100WBC (0.0-0.2); Platelet Count 172 X10*3/uL (160-400); Red Blood Count 3.91 X10*6/uL (4.60-5.80); White Blood Count 8.7 X10*3/uL (4.8-10.8)
[2025-06-07 07:39] LABS: INTERNATIONAL NORM RATIO 2.2 (0.9-1.1); Prothrombin Time 25.5 SEC (10.9-12.4)
[2025-06-07 07:49] LABS: Anion Gap 11 (12-20); Blood Urea Nitrogen 12 mg/dL (9-16); Calcium 9.4 mg/dL (8.4-10.2); Carbon Dioxide 24 mmol/L (22-29); Chloride 107 mmol/L (96-108); Creatinine Clr Calc Pharmacy 59.3; Estimated Glomerular Filt Rate > 60; Potassium 3.7 mmol/L (3.3-5.1); Sodium 138 mmol/L (135-145)
[2025-06-07 08:00] VITALS: BP 95/54; PULSE 82; RESP 18; TEMP 36.7; O2SAT 96
--- NOTE | 2025-06-07 08:28 | PM.CNGS ---
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 Patient sustained a fall earlier this month and bumped his left lower leg. He was evaluated at [facility] and diagnosed with a hematoma/cellulitis and discharged home on Keflex. He has had VNA come to his home once a week since the evaluation for wound care. He also has a FIELD SALES TRAINER twice a week for assistance with bathing. He reports his FIELD SALES TRAINER saw his leg yesterday and was concerned for infection today and advised him to seek evaluation in ED. He reports injuring this leg during the spring while working in the garden however that wound had healed prior to reinjuring the area earlier this month. Work up in the ED with labs was significant for an elevated CRP, no leukocytosis. He had extensive imaging performed including doppler of the LLE confirming continued DVT. Left tib/fib xray showed no acute fracture or evidence of osteomyelitis. He had a CT of the left lower extremity which showed subcutaneous edema without abscess and with a few tiny foci of gas noted in the region of the wound. General surgery was consulted for possible debridement of the LLE wound. <LETA Correa Last Filed: 06/07/25 11:20> Review of Systems Constitutional: Constitutional: Denies chills and Denies fever(s) <LETA Correa Last Filed: 06/07/25 11:20> ENT: Denies dizziness <LETA Correa Last Filed: 06/07/25 11:20> Cardiovascular: Cardiovascular: Denies chest pain and Denies dyspnea <LETA Correa Last Filed: 06/07/25 11:20> Respiratory: Respiratory: Denies dyspnea <Shannon Abreu PA-C Last Filed: 06/07/25 11:20> Gastrointestinal: Gastrointestinal: Denies abdominal pain, Denies nausea and Denies vomiting <Shannon Abreu PA-C Last Filed: 06/07/25 11:20> Integumentary/Breasts: Skin/Breast: Reports as per HPI <Shannon Abreu PA-C Last Filed: 06/07/25 11:20> Neurologic: Denies dizziness <Shannon Abreu PA-C Last Filed: 06/07/25 11:20> COUNT INCLUDES THE [facility] Past Medical History Medical History: Medical History Varicose veins of right lower extremity with inflammation Leg wound, right Decreased appetite Adult general medical exam Diarrhea Cellulitis Dysphagia Nausea Frequency of micturition Venous insufficiency COVID-19 virus infection Leukocytosis Normocytic anemia Hyponatremia Low sodium levels Hypercholesterolemia Prostate cancer Osteoarthritis, shoulder <Shannon Abreu PA-C Last Filed: 06/07/25 11:20> Family History Family History: Family History Father Diabetes <Shannon Abreu PA-C Last Filed: 06/07/25 11:20> Surgical History Surgical History: Surgical History History of radical prostatectomy Erectile dysfunction following urethral surgery <Shannon Abreu PA-C Last Filed: 06/07/25 11:20> Social History Social History: Social History Household Members: Children Household Members Other:: daughter Housing: House Do you presently have visiting nurse or other home services: Yes Alcohol intake: never Patient Tobacco Use Status: Never used Tobacco Tobacco use type: Cigarette e-Cigarette/Vaping Use: Never Used Second Hand Smoke Exposure: No Advance Directives Date on File: 08/24/21 service: No Current occupational status: retired 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 Current occupational exposures/hazards: Yes (worked 'near' asbestos) Cognitive needs: Yes (cane) Hearing needs: No Vision needs: Yes <Shannon Abreu PA-C - Last Filed: 06/07/25 11:20> Travel History Ebola Risk: Travel/Contact With Anyone From Affected Area/s: No <LETA Correa Last Filed: 06/07/25 11:20> Has Patient Experienced Ebola Symptoms: No <Shannon Abreu PA-C - Last Filed: 06/07/25 11:20> Meds Allergies/Adverse reactions: Allergies Allergy/AdvReac Type Severity Reaction Status Date / Time No Known Allergies Allergy Mild N/A Verified 06/28/25 10:45 <LETA Correa Last Filed: 06/07/25 11:20> Active Medications: Current Medications Acetaminophen (Acetaminophen 325 Mg Tablet) 650 mg PO Q6H PRN PRN Reason: Pain, Mild 1-3,fever,headache Albuterol/Ipratropium (Albuterol/Iprat 2.5/0.5mg 3 Ml Ampul.Neb) 3 ml INHALE Q4H PRN PRN Reason: Shortness of Breath/Wheezing Calcium Carbonate (Calcium Carbonate 750 Mg Tab.Chew) 750 mg PO Q4H PRN PRN Reason: Heartburn Cefazolin Sodium/Dextrose (Ancef) 2 gm in 50 mls @ 100 mls/hr IV Q8H [facility] Last Infusion: 06/07/25 04:40 Dose: Infused Magnesium Hydroxide (Milk Of Magnesia 30 Ml Oral.Susp) 30 ml PO DAILY PRN PRN Reason: Constipation Melatonin (Melatonin 3 Mg Tablet) 6 mg PO BEDTIME PRN PRN Reason: Insomnia Ondansetron HCl (Ondansetron Hcl 4 Mg/2 Ml Vial) 4 mg IVPUSH Q8H PRN PRN Reason: Nausea and Vomiting Polyethylene Glycol (Polyethylene Glycol 3350 17 Gm Powd.Pack) 17 gm PO DAILY PRN PRN Reason: Constipation Senna (Sennosides 8.6 Mg Tablet) 17.2 mg PO BEDTIME JAY Sodium Chloride (0.9 % Sodium Chloride Flush 3 Ml Syringe) 3 ml IVFLUSH QSHIFT [facility] <LETA Correa Last Filed: 06/07/25 11:20> Home medications: Home Medications ?Medication ?Instructions ?Recorded ?Confirmed ?Last Taken ?Type cholecalciferol (vitamin D3) 25 25 mcg PO DAILY 01/17/21 07/01/25 2 Days Ago History mcg (1,000 unit) capsule ~06/05/25 ascorbate calcium (vitamin C) 500 500 mg PO DAILY 02/13/24 07/01/25 2 Days Ago History mg tablet ~06/05/25 cyanocobalamin (vitamin B-12) 1,000 mcg PO DAILY 06/07/25 07/01/25 Unknown History 1,000 mcg tablet (Vitamin B-12) meloxicam 7.5 mg tablet 7.5 mg PO DAILY PRN 07/01/25 07/01/25 Unknown History <LETA Correa Last Filed: 06/07/25 11:20> Physical Exam Vital Signs: Vital Signs: Last Vital Signs Temp 98 F 06/07/25 04:00 Pulse 72 06/07/25 04:00 Resp 18 06/07/25 04:00 BP 126/72 06/07/25 04:00 Pulse Ox 98 06/07/25 04:00 O2 Del Method Room Air 06/07/25 04:00 BMI result Body Mass Index 21.5 <LETA Correa Last Filed: 06/07/25 11:20> Const: General: cooperative, comfortable, no acute distress, well developed and alert <LETA Correa Last Filed: 06/07/25 11:20> Orientation/consciousness: patient oriented x3 <LETA Correa Last Filed: 06/07/25 11:20> Resp: Effort & Inspection: normal respiratory effort <LETA Correa Last Filed: 06/07/25 11:20> Cardio: Rate: regular rate <LETA Correa Last Filed: 06/07/25 11:20> Skin: Other: warm and dry lower extremities as noted below <LETA Correa Last Filed: 06/07/25 11:20> Neuro: General: patient oriented x3 and moves all extremities <LETA Correa Last Filed: 06/07/25 11:20> Extrem: Other: b/l lower extremities with skin thickening and hair loss, good palpable DP pulses left lower extremity with 6cm x 4cm open wound with overlying eschar, mild surrounding erythema and edema ; the eschar was sharply debrided at bedside with underlying thick slough on wound base <Shannon Abreu PA-C - Last Filed: 06/07/25 11:20> Results Labs Result diagrams: 06/07/25 06:53 06/08/25 05:24 <Shannon Abreu PA-C - Last Filed: 06/07/25 11:20> Labs: Abnormal lab results 06/06/25 06/06/25 06/07/25 Range/Units 16:38 18:38 06:53 RBC 4.11 L 3.91 L (4.60-5.80) X10*6/uL Hgb 13.0 L 12.4 L (14.0-18.0) g/dl Hct 39.2 L 36.9 L (42.0-52.0) % MPV 8.9 L 9.0 L (9.4-12.4) fL Immature Gran % (Auto) 0.6 H 0.6 H (0.0-0.4) % Lymph % (Auto) 17.9 L (20-40) % Abs Immat Gran (auto) 0.05 H 0.05 H (0.00-0.03) X10*3/uL ESR 58 H (0-15) MM/HR PT 29.8 H D 25.5 H (10.9-12.4) SEC INR 2.6 H 2.2 H (0.9-1.1) Anion Gap 10 L 11 L (12-20) BUN 18 H (9-16) mg/dL C-Reactive Protein 2.75 H (< or = 0.50) mg/dL Urine Blood Trace H (Negative) Urine RBC 3-5 H (0-2) /HPF Short CBC 06/06/25 06/07/25 Range/Units 16:38 06:53 WBC 8.4 8.7 (4.8-10.8) X10*3/uL Hgb 13.0 L 12.4 L (14.0-18.0) g/dl Hct 39.2 L 36.9 L (42.0-52.0) % Plt Count 196 172 (160-400) X10*3/uL BMP 06/06/25 06/07/25 16:38 06:53 Sodium 138 138 Potassium 4.4 3.7 Chloride 107 107 Carbon Dioxide 25 24 BUN 18 H 12 Creatinine 0.85 0.81 Calcium 9.7 9.4 Liver Function 06/06/25 Range/Units 16:38 Total Bilirubin 0.4 (0.0-1.0) mg/dL AST 21 (5-37) U/L ALT 11 (0-40) U/L Alkaline Phosphatase 80 (39-117) U/L Albumin 3.5 (3.5-5.0) g/dL Urine 06/06/25 Range/Units 18:38 Urine Color Yellow Urine Appearance Clear Urine pH 5.5 (5.0-9.0) Ur Specific [place] 1.010 (1.005-1.025) Urine Protein Trace (Neg-Trace) mg/dL Urine Glucose (UA) Negative (Negative) mg/dL All other labs normal. 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 He was admitted to the hospitalist service for further treatment of the left lower leg wound and surrounding cellulitis. He is on IV ceftriaxone. The wound was assessed and the overlying eschar was sharply debrided with scissors full thickness for an area measuring 6cm x 2cm. He tolerated this well. Wet to dry fluff was placed to help with debridement of the exudate on the wound bed followed by dry fluffs and kerlix wrap. Cont IV abx, left leg elevation. Vascular consulted as well for DVT management, he is on coumadin. Will cont to follow, hopefully begin silver alginate prior to dc and can refer to wound care center for outpatient management. 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 He was admitted to the hospitalist service for further treatment of the left lower leg wound and surrounding cellulitis. He is on IV ceftriaxone. The wound was assessed and the overlying eschar was sharply debrided with scissors full thickness for an area measuring 6cm x 2cm. He tolerated this well. Wet to dry fluff was placed to help with debridement of the exudate on the wound bed followed by dry fluffs and kerlix wrap. Cont IV abx, left leg elevation. Vascular consulted as well for DVT management, he is on coumadin. Will cont to follow, hopefully begin silver alginate prior to dc and can refer to wound care center for outpatient management. Patient is seen and examined and agree with the above. Dressings as above <Aarti Julio MD - Last Filed: 07/03/25 21:11> Procedures Date of Service Date of Service: 06/07/25 <Shannon bAreu PA-C - Last Filed: 06/07/25 11:20> 07/03/25 <Aarti Julio MD - Last Filed: 07/03/25 21:11>
[2025-06-07] MEDS: 0.9 % Sodium Chloride Flush 3 ML SYRINGE IVFLUSH ×3 (09:01→21:27)
[2025-06-07 10:34] VITALS: BP 126/70; PULSE 75; RESP 16; TEMP 36.1; O2SAT 98
--- NOTE | 2025-06-07 12:14 | MHC.CM.PN ---
PT REPORTS HE LIVES ALONE, BUT HIS SON WILL BE STAYING WITH HIM UNTIL HE IS FEELING BETTER HE REPORTS HE HAS A MANAGING PARTNER THAT COMES 2X/WK FOR SHOWERS AND A NURSE WHO COMES EVERY KELLI FROM [facility] HE HAS BEEN USING A CANE, BUT FEELS HE WOULD BE BETTER WITH A 4 WHEELED WALKER HCP ON FILE PCP: SHERLYN CRUZ IMM DELIVERED DCP: HOME, RESUME MANAGING PARTNER AND [facility] PT DOES NOT WANT TO GO TO [facility], HE HAS BEEN TO [facility] TWICE IN THE PAST. FAMILY TO TRANSPORT
--- NOTE | 2025-06-07 12:39 | HO.WOUND ---
Wound Consult: Initial deferred until 06/08/25 89yr old? male admitted to [facility] on 06/07/25 - See progress notes and H&P for detailed history.? Wound consult placed for Left Lower Leg wound.? Patient was seen by General Surgery see note for details. Bedside debridement performed and wet to dry dressing applied. Will follow up tomorrow for assessment and continued topical care - per discussion with general surgery. Left Leg Etiology: Traumatic injury with hematoma and DVT development Wet to dry dressing in place post debridement will assess tomorrow for evaluation for Dur[employer]iber [employer]. Inpatient wound care nurse will continue to follow.
--- NOTE | 2025-06-07 13:18 | PHA.MEDREC ---
Addendum entered by Radha Parham eben 06/07/25 14:04: MED REC REVIEWED BY [facility] Original Note: Pharmacy Consult ? Medication Reconciliation Pharmacy has completed the medication reconciliation. Spoke with pt and he has on hand a list of his medications he read down and verified with me. Pt confirmed he takes Warfarin 5mg tabs once daily but has not taken it in 2 days. Pt confirmed he still takes Meloxicam 7.5mg tabs once a day ( 03/26 for 30) Rosuvastatin 40 mg once daily (LF 12/01 for 30 days) and Toleterodine 4mg caps once daily (LF12/02 for 90 days).
--- NOTE | 2025-06-07 14:14 | PM.CNGS ---
History of Present Illness Consult details Consult date: 06/07/25 Reason for consult: other (DVT) Narrative: Very pleasant 89-year-old gentleman well known to me with a history of hypercoagulable state and prior DVTs. He actually had undergone placement of IVC filter by me on 06/19/2023. Presented to the emergency room after increased swelling and drainage from a chronic left lower extremity wound. According to nursing it appeared to be more infected had increased drainage. He had undergone ultrasound yesterday and now presents to us for vascular evaluation Review of Systems Review of Systems: Yes all other systems are reviewed and are negative Constitutional: Constitutional: Reports no additional constitutional complaints ENT: Reports Normal hearing present Cardiovascular: Cardiovascular: Denies chest pain, Denies chest pain at rest, Denies chest pain with activity and Denies pedal edema Respiratory: Respiratory: Denies cough Gastrointestinal: Gastrointestinal: Denies abdominal pain Musculoskeletal: Musculoskeletal: Denies abnormal gait, Denies muscle cramps and Denies radiating pain into limb Integumentary/Breasts: Skin/Breast: Denies skin ulcer and Denies wounds Neurologic: Reports Normal hearing present and Denies abnormal gait Psychiatric: Psychiatric: Reports no additional psychiatric complaints [facility] Past Medical History Medical History Varicose veins of right lower extremity with inflammation Leg wound, right Decreased appetite Adult general medical exam Diarrhea Cellulitis Dysphagia Nausea Frequency of micturition Venous insufficiency COVID-19 virus infection Leukocytosis Normocytic anemia Hyponatremia Low sodium levels Hypercholesterolemia Prostate cancer Osteoarthritis, shoulder Family History Family History Father Diabetes Surgical History Surgical History History of radical prostatectomy Erectile dysfunction following urethral surgery Social History Social History Household Members: Children Household Members Other:: daughter Housing: House Do you presently have visiting nurse or other home services: Yes Alcohol intake: never Patient Tobacco Use Status: Never used Tobacco e-Cigarette/Vaping Use: Never Used Second Hand Smoke Exposure: No Have you been hit, kicked, punched, or otherwise hurt by someone within the past year? 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 Current occupational exposures/hazards: Yes (worked 'near' asbestos) Cognitive needs: Yes (cane) Hearing needs: No Vision needs: Yes Travel History Ebola Risk: Travel/Contact With Anyone From Affected Area/s: No Has Patient Experienced Ebola Symptoms: No Meds Allergies Allergy/AdvReac Type Severity Reaction Status Date / Time No Known Allergies Allergy Mild N/A Verified 06/06/25 15:18 Active Medications: Current Medications Acetaminophen (Acetaminophen 325 Mg Tablet) 650 mg PO Q6H PRN PRN Reason: Pain, Mild 1-3,fever,headache Albuterol/Ipratropium (Albuterol/Iprat 2.5/0.5mg 3 Ml Ampul.Neb) 3 ml INHALE Q4H PRN PRN Reason: Shortness of Breath/Wheezing Calcium Carbonate (Calcium Carbonate 750 Mg Tab.Chew) 750 mg PO Q4H PRN PRN Reason: Heartburn Cefazolin Sodium/Dextrose (Ancef) 2 gm in 50 mls @ 100 mls/hr IV Q8H [facility] Last Infusion: 06/07/25 12:51 Dose: Infused Magnesium Hydroxide (Milk Of Magnesia 30 Ml Oral.Susp) 30 ml PO DAILY PRN PRN Reason: Constipation Melatonin (Melatonin 3 Mg Tablet) 6 mg PO BEDTIME PRN PRN Reason: Insomnia Ondansetron HCl (Ondansetron Hcl 4 Mg/2 Ml Vial) 4 mg IVPUSH Q8H PRN PRN Reason: Nausea and Vomiting Polyethylene Glycol (Polyethylene Glycol 3350 17 Gm Powd.Pack) 17 gm PO DAILY PRN PRN Reason: Constipation Senna (Sennosides 8.6 Mg Tablet) 17.2 mg PO BEDTIME [facility] Sodium Chloride (0.9 % Sodium Chloride Flush 3 Ml Syringe) 3 ml IVFLUSH QSHIFT [facility] Last Admin: 06/07/25 09:01 Dose: 3 ml Home Medications ?Medication ?Instructions ?Recorded ?Confirmed ?Last Taken ?Type cholecalciferol (vitamin D3) 25 25 mcg PO DAILY 01/17/21 06/07/25 2 Days Ago History mcg (1,000 unit) capsule ~06/05/25 ascorbate calcium (vitamin C) 500 500 mg PO DAILY 02/13/24 06/07/25 2 Days Ago History mg tablet ~06/05/25 cyanocobalamin (vitamin B-12) 1,000 mcg PO DAILY 06/07/25 06/07/25 Unknown History 1,000 mcg tablet (Vitamin B-12) Physical Exam Vital Signs: Vital Signs: Last Vital Signs Temp 96.9 F 06/07/25 10:34 Pulse 75 06/07/25 10:34 Resp 16 06/07/25 10:34 BP 126/70 06/07/25 10:34 Pulse Ox 98 06/07/25 10:34 O2 Del Method Room Air 06/07/25 10:34 BMI result Body Mass Index 23.7 Const: General: cooperative, healthy appearing and comfortable Orientation/consciousness: oriented to person, oriented to place and oriented to time HEENT: Head: Yes normal to inspection Neck: Neck: Yes normal visual inspection Carotids: no bruits Chest: Chest palpation & inspection: normal inspection of the chest Resp: Effort & Inspection: normal respiratory effort and able to speak in complete sentences Auscultation: clear to auscultation bilaterally, no crackles, no rales, no rhonchi and no wheezes Cardio: Rate: regular rate Rhythm: regular rhythm Heart sounds: S1 normal heart sound present and S2 normal heart sound present Bruits: no carotid bruits Peripheral pulses: Peripheral pulses 2+ throughout GI: Inspection: Yes normal to inspection Skin: Other: Left lower extremity +2 edema dressing overlying wound. Pretibial surface dry eschar. Wounds: no wounds Hair: normal Neuro: General: oriented to person, oriented to place and oriented to time Cranial nerves: Yes CN's II-XII intact bilaterally and Yes Normal hearing present Cognition (Neuro): normal cognition Motor exam (neuro): 5/5 motor strength present throughout Extrem: Other: venous exam: No significant superficial varicosities or spider telangiectasias, minimal edema General: No clubbing, No cyanosis and No edema Psych: Appearance: grossly normal Mental Status: mental status grossly normal Speech and movement: Normal speech and movement present Results Labs 06/07/25 06:53 06/07/25 06:53 Labs: Abnormal lab results 06/06/25 06/06/25 06/07/25 Range/Units 16:38 18:38 06:53 RBC 4.11 L 3.91 L (4.60-5.80) X10*6/uL Hgb 13.0 L 12.4 L (14.0-18.0) g/dl Hct 39.2 L 36.9 L (42.0-52.0) % MPV 8.9 L 9.0 L (9.4-12.4) fL Immature Gran % (Auto) 0.6 H 0.6 H (0.0-0.4) % Lymph % (Auto) 17.9 L (20-40) % Abs Immat Gran (auto) 0.05 H 0.05 H (0.00-0.03) X10*3/uL ESR 58 H (0-15) MM/HR PT 29.8 H D 25.5 H (10.9-12.4) SEC INR 2.6 H 2.2 H (0.9-1.1) Anion Gap 10 L 11 L (12-20) BUN 18 H (9-16) mg/dL C-Reactive Protein 2.75 H (< or = 0.50) mg/dL Urine Blood Trace H (Negative) Urine RBC 3-5 H (0-2) /HPF Short CBC 06/06/25 06/07/25 Range/Units 16:38 06:53 WBC 8.4 8.7 (4.8-10.8) X10*3/uL Hgb 13.0 L 12.4 L (14.0-18.0) g/dl Hct 39.2 L 36.9 L (42.0-52.0) % Plt Count 196 172 (160-400) X10*3/uL BMP 06/06/25 06/07/25 16:38 06:53 Sodium 138 138 Potassium 4.4 3.7 Chloride 107 107 Carbon Dioxide 25 24 BUN 18 H 12 Creatinine 0.85 0.81 Calcium 9.7 9.4 Liver Function 06/06/25 Range/Units 16:38 Total Bilirubin 0.4 (0.0-1.0) mg/dL AST 21 (5-37) U/L ALT 11 (0-40) U/L Alkaline Phosphatase 80 (39-117) U/L Albumin 3.5 (3.5-5.0) g/dL Urine 06/06/25 Range/Units 18:38 Urine Color Yellow Urine Appearance Clear Urine pH 5.5 (5.0-9.0) Ur Specific [place] 1.010 (1.005-1.025) Urine Protein Trace (Neg-Trace) mg/dL Urine Glucose (UA) Negative (Negative) mg/dL All other labs normal. Imaging Additional studies: DVT ultrasound reviewed Assessment and Plan (1) DVT (deep venous thrombosis): Qualifiers: DVT location: lower extremity Affected thrombotic vein of extremity: popliteal Chronicity: acute Laterality: right Qualified Code(s): I82.431 - Acute embolism and thrombosis of right popliteal vein Status: Acute Plan In short patient has persistent DVT. I did review the old and current ultrasound imaging. It does appear to be similar if not better than prior. There is some recanalization. In addition he does have an IVC filter in place. Would continue with local wound care per general surgery. Can follow up with us on an as-needed basis. Thank you for allowing us to participate in his care. If there are any questions or concerns please do not hesitate to contact us. Procedures Date of Service Date of Service: 06/07/25
[2025-06-07 15:10] VITALS: BP 102/58; PULSE 68; RESP 18; TEMP 36.1; O2SAT 97
--- NOTE | 2025-06-07 16:10 | P.PNIM_ITS ---
Subjective Subjective Date of Service: 06/07/25 Interval History: no fever no leg pain Review of Systems Review of Systems: Yes all other systems are reviewed and are negative Physical Exam 2 Vital Signs: Vital Signs: Last Vital Signs Temp 96.9 F 06/07/25 15:10 Pulse 68 06/07/25 15:10 Resp 18 06/07/25 15:10 BP 102/58 L 06/07/25 15:10 Pulse Ox 97 06/07/25 15:10 O2 Del Method Room Air 06/07/25 15:10 BMI result Body Mass Index 23.7 Gen: in no acute distress HEENT: sclera anicteric, moist mucus membranes Neck: supple Lungs: clear to auscultation bilaterally Heart: regular rate and rhythm, no murmurs Abd: soft, non-tender, non-distended Ext: no edema Skin: warm/well-perfused, L gonzalez with 6 x 4 cm open wound with eschar and surrounding induration and erythema Neuro: alert and oriented x3, no focal findings Psych: appropriate affect Objective Data Active Medications Acetaminophen (Acetaminophen 325 Mg Tablet) 650 mg PO Q6H PRN PRN Reason: Pain, Mild 1-3,fever,headache Albuterol/Ipratropium (Albuterol/Iprat 2.5/0.5mg 3 Ml Ampul.Neb) 3 ml INHALE Q4H PRN PRN Reason: Shortness of Breath/Wheezing Calcium Carbonate (Calcium Carbonate 750 Mg Tab.Chew) 750 mg PO Q4H PRN PRN Reason: Heartburn Cefazolin Sodium/Dextrose (Ancef) 2 gm in 50 mls @ 100 mls/hr IV Q8H [facility] Last Infusion: 06/07/25 12:51 Dose: Infused Documented By: AKUA Magnesium Hydroxide (Milk Of Magnesia 30 Ml Oral.Susp) 30 ml PO DAILY PRN PRN Reason: Constipation Melatonin (Melatonin 3 Mg Tablet) 6 mg PO BEDTIME PRN PRN Reason: Insomnia Ondansetron HCl (Ondansetron Hcl 4 Mg/2 Ml Vial) 4 mg IVPUSH Q8H PRN PRN Reason: Nausea and Vomiting Polyethylene Glycol (Polyethylene Glycol 3350 17 Gm Powd.Pack) 17 gm PO DAILY PRN PRN Reason: Constipation Senna (Sennosides 8.6 Mg Tablet) 17.2 mg PO BEDTIME [facility] Sodium Chloride (0.9 % Sodium Chloride Flush 3 Ml Syringe) 3 ml IVFLUSH QSHIFT [facility] Last Admin: 06/07/25 09:01 Dose: 3 ml Documented By: FUNMILAYO Labs 06/07/25 06:53 06/07/25 06:53 Labs: Laboratory Results - last 24 hr 06/06/25 06/06/25 06/06/25 16:38 18:38 20:51 MCV 95.4 MCH 31.6 MCHC 33.2 RDW 14.2 Plt Count 196 MPV 8.9 L Immature Gran % (Auto) 0.6 H Neut % (Auto) 67.8 Lymph % (Auto) 21.6 [place] % (Auto) 8.2 Eos % (Auto) 1.3 Baso % (Auto) 0.5 Lymph # (Auto) 1.8 [place] # (Auto) 0.7 Eos # (Auto) 0.1 Baso # (Auto) 0.0 Abs Immat Gran (auto) 0.05 H Absolute Neuts (auto) 5.7 Absolute Nucleated RBC 0.000 Nucleated RBC % (auto) 0.0 ESR 58 H PT 29.8 H D INR 2.6 H Anion Gap 10 L Estim Creat Clear Calc 56.5 Estimated GFR > 60 Random Glucose 82 Lactic Acid 0.8 Calcium 9.7 Total Bilirubin 0.4 AST 21 ALT 11 Alkaline Phosphatase 80 C-Reactive Protein 2.75 H Total Protein 7.2 Albumin 3.5 Urine Color Yellow Urine Appearance Clear Urine pH 5.5 Ur Specific [place] 1.010 Urine Protein Trace Urine Glucose (UA) Negative Urine Ketones Negative Urine Blood Trace H Urine Nitrite Negative Ur Leukocyte Esterase Negative Urine RBC 3-5 H Urine WBC 0-5 Ur Squamous Epith Cells 0-2 Urine Bacteria None Seen Hyaline Casts 0-2 06/07/25 06:53 MCV 94.4 MCH 31.7 MCHC 33.6 RDW 14.3 Plt Count 172 MPV 9.0 L Immature Gran % (Auto) 0.6 H Neut % (Auto) 70.4 Lymph % (Auto) 17.9 L [place] % (Auto) 9.2 Eos % (Auto) 1.3 Baso % (Auto) 0.6 Lymph # (Auto) 1.6 [place] # (Auto) 0.8 Eos # (Auto) 0.1 Baso # (Auto) 0.1 Abs Immat Gran (auto) 0.05 H Absolute Neuts (auto) 6.1 Absolute Nucleated RBC 0.000 Nucleated RBC % (auto) 0.0 ESR PT 25.5 H INR 2.2 H Anion Gap 11 L Estim Creat Clear Calc 59.3 Estimated GFR > 60 Random Glucose 81 Lactic Acid Calcium 9.4 Total Bilirubin AST ALT Alkaline Phosphatase C-Reactive Protein Total Protein Albumin Urine Color Urine Appearance Urine pH Ur Specific [place] Urine Protein Urine Glucose (UA) Urine Ketones Urine Blood Urine Nitrite Ur Leukocyte Esterase Urine RBC Urine WBC Ur Squamous Epith Cells Urine Bacteria Hyaline Casts Microbiology Microbiology Results: Microbiology 06/07/25 03:04 Gram Stain - Final Leg - Left Assessment and Plan (1) Leg wound, left: Status: Acute Assessment and Plan: d1, 89yo M with hypercoagulability, RLE DVT [May 2023], LLE DVT [Mar 2025] on warfarin and with IVC filter in place, prostate CA s/p artifical external sphincter, MGUS, and chronic LLE wound sent in by VNA nurse due to concern of wound infection wound infection, LLE - sharply debrided at bedside by Gen Surg, Wound Care consulting, ID consulted, 06/07- cefazolin, follow BCx - Wet to dry fluff was placed to help with debridement of the exudate on the wound bed followed by dry fluffs and kerlix wrap. Cont IV abx, left leg elevation. Vascular consulted as well for DVT management, he is on coumadin. Will cont to follow, hopefully begin silver alginate prior to dc and can refer to wound care center for outpatient management. DVT LLE - Comparison is made with a prior study dated March 14, 2025. When compared to the prior exam, the extent of involvement of the femoral vein is improved with recanalization of proximal aspects. Thrombus within the mid and distal aspects of the femoral vein are similar to the prior study. Possible interval worsening of thrombosis at the level of the popliteal vein. Nonvisualization of the peroneal veins on the current exam. - continue warfarin, INR therapeutic [cannot afford Eliquis] - In short patient has persistent DVT. I did review the old and current ultrasound imaging. It does appear to be similar if not better than prior. There is some recanalization. In addition he does have an IVC filter in place. Would continue with local wound care per general surgery. HLD - statin mood disorder - sertraline VTE ppx: warfarin dispo: TBD In my clinical judgment, the patient requires continued inpatient hospitalization for the following reasons: IV ABX, wound care Total time managing care of this patient today: 45 minutes. Quality Stroke Does the patient have a stroke diagnosis?: No Reason for No Anti-thrombotic by Day Two: N/A - Med Ordered (Coumadin) VTE Prior VTE?: Yes VTE Risk Level:: Medical - moderate - high VTE Device Contraindication: Treatment Not Tolerated VTE Drug Contraindication: N/A - Med Ordered
[2025-06-07] MEDS: vancomycin/NS 2,000 MG/500 ML PLAST..BAG 250 MG IV (18:11)
[2025-06-07 19:45] VITALS: BP 109/55; PULSE 64; RESP 18; TEMP 36.4; O2SAT 95
--- NOTE | 2025-06-07 22:17 | PHA.PROG ---
Admission Date/Time: June 07, 2025 00:34 Indication: bacteremia Weight in k kg Adjusted body weight in Kg: [place] body weight in Kg: Obesity Dosing Indication % IBW: Serum Creatinine - Last 168 Hours 06/06/25 06/07/25 16:38 06:53 Creatinine 0.85 0.81 Estimated CrCl and GFR - Last 168 Hours 06/06/25 06/07/25 16:38 06:53 Estim Creat Clear Calc 56.5 59.3 Estimated GFR > 60 > 60 Vancomycin Loading Dose: 2000 mg Current Vancomycin Dosing Regimen: 1500 mg Q24H Vancomycin Monitoring using AUC goal of 400 - 600 range with trough as surrogate marker: Predicted AUC 543 and trough 15.5 Date and Time for next Vancomycin Level to be drawn: 06/09 @1600 after second dose. Pharmacist Comments on Vancomycin Plan: Vancomycin dosing will take advantage of [employer] as a clinical decision support tool that uses Bayesian modeling to calculate individual patient's pharmacokinetic parameters and forecast the patient's drug concentration time course with the target goal AUC 24 range of 400 - 600 mg/L/hr.
--- NOTE | 2025-06-07 23:56 | P.CNID_ITS ---
History of Present Illness Data of Consult Service Date: 06/07/25 Requesting physician: Kaylie Donis Primary Care Provider: Bobbi Harris MD HPI Reason for consult: left leg hematoma He fell one month ago. He is on warfarin. He had extensive bruising and skin abrasion didnt heal so back for this. He has 1/2 blood culture gram positive cocci. Review of Systems 2 Review of Systems: Yes all other systems are reviewed and are negative PMFSH Past Medical History Medical History Varicose veins of right lower extremity with inflammation Leg wound, right Decreased appetite Adult general medical exam Diarrhea Cellulitis Dysphagia Nausea Frequency of micturition Venous insufficiency COVID-19 virus infection Leukocytosis Normocytic anemia Hyponatremia Low sodium levels Hypercholesterolemia Prostate cancer Osteoarthritis, shoulder Family History Family History Father Diabetes Family history: reviewed and not pertinent Surgical History Surgical History History of radical prostatectomy Erectile dysfunction following urethral surgery Social History Social History Household Members: Children Household Members Other:: daughter Housing: House Do you presently have visiting nurse or other home services: Yes Alcohol intake: never Patient Tobacco Use Status: Never used Tobacco e-Cigarette/Vaping Use: Never Used Second Hand Smoke Exposure: No Currently Displaying Signs/Symptoms of Drug Intoxication Withdrawal: No Have you been hit, kicked, punched, or otherwise hurt by someone within the past year? 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 Current occupational exposures/hazards: Yes (worked 'near' asbestos) Cognitive needs: Yes (cane) Hearing needs: No Vision needs: Yes Travel History Ebola Risk: Travel/Contact With Anyone From Affected Area/s: No Has Patient Experienced Ebola Symptoms: No Meds Allergies Allergy/AdvReac Type Severity Reaction Status Date / Time No Known Allergies Allergy Mild N/A Verified 06/06/25 15:18 Active Medications: Current Medications Acetaminophen (Acetaminophen 325 Mg Tablet) 650 mg PO Q6H PRN PRN Reason: Pain, Mild 1-3,fever,headache Last Admin: 06/07/25 22:50 Dose: 650 mg Albuterol/Ipratropium (Albuterol/Iprat 2.5/0.5mg 3 Ml Ampul.Neb) 3 ml INHALE Q4H PRN PRN Reason: Shortness of Breath/Wheezing Ascorbic Acid (Ascorbic Acid 500 Mg Tablet) 500 mg PO DAILY JAY Atorvastatin Calcium (Atorvastatin Calcium 80 Mg Tablet) 80 mg PO DAILY JAY Calcium Carbonate (Calcium Carbonate 750 Mg Tab.Chew) 750 mg PO Q4H PRN PRN Reason: Heartburn Cyanocobalamin (Cyanocobalamin (Vitamin B-12) 1,000 Mcg Tablet) 1,000 mcg PO DAILY [facility] Cyproheptadine HCl (Cyproheptadine Hcl 4 Mg Tablet) 4 mg PO BEDTIME [facility] Last Admin: 06/07/25 21:27 Dose: 4 mg Cefazolin Sodium/Dextrose (Ancef) 2 gm in 50 mls @ 100 mls/hr IV Q8H [facility] Last Infusion: 06/07/25 21:56 Dose: Infused Vancomycin HCl 1,500 mg/ (Sodium Chloride) 500 mls @ 333.333 mls/hr IV Q24H [facility] Magnesium Hydroxide (Milk Of Magnesia 30 Ml Oral.Susp) 30 ml PO DAILY PRN PRN Reason: Constipation Melatonin (Melatonin 3 Mg Tablet) 6 mg PO BEDTIME PRN PRN Reason: Insomnia Ondansetron HCl (Ondansetron Hcl 4 Mg/2 Ml Vial) 4 mg IVPUSH Q8H PRN PRN Reason: Nausea and Vomiting Pharmacy Consult (Consult Rx Vancomycin Dosing) 1 each MISCELLANE DAILY PRN PRN Reason: Consult order Polyethylene Glycol (Polyethylene Glycol 3350 17 Gm Powd.Pack) 17 gm PO DAILY PRN PRN Reason: Constipation Senna (Sennosides 8.6 Mg Tablet) 17.2 mg PO BEDTIME [facility] Last Admin: 06/07/25 21:27 Dose: 17.2 mg Sertraline HCl (Sertraline Hcl 25 Mg Tablet) 25 mg PO DAILY [facility] Sodium Chloride (0.9 % Sodium Chloride Flush 3 Ml Syringe) 3 ml IVFLUSH QSHIFT [facility] Last Admin: 06/07/25 21:27 Dose: 3 ml Tolterodine Tartrate (Tolterodine Tartrate La 4 Mg Cap.Er.24h) 4 mg PO DAILY [facility] Vitamin D (Cholecalciferol (Vitamin D3) 25 Mcg Tablet) 25 mcg PO DAILY [facility] Warfarin Sodium (Warfarin Sodium 5 Mg Tablet) 5 mg PO DAILY@1800 [facility] Last Admin: 06/07/25 17:37 Dose: 5 mg Home Medications ?Medication ?Instructions ?Recorded ?Confirmed ?Last Taken ?Type cholecalciferol (vitamin D3) 25 25 mcg PO DAILY 06/07/25 2 Days Ago History mcg (1,000 unit) capsule ~06/05/25 ascorbate calcium (vitamin C) 500 500 mg PO DAILY 03/3106/07/25 2 Days Ago History mg tablet ~06/05/25 cyanocobalamin (vitamin B-12) 1,000 mcg PO DAILY 06/0706/07/25 Unknown History 1,000 mcg tablet (Vitamin B-12) Physical Exam 2 Vital Signs: Vital Signs: Last Vital Signs Temp 97.6 F 06/07/25 19:45 Pulse 64 06/07/25 19:45 Resp 18 06/07/25 19:45 BP 109/55 L 06/07/25 19:45 Pulse Ox 95 06/07/25 19:45 O2 Del Method Room Air 06/07/25 19:45 BMI result Body Mass Index 23.7 Const: General: cooperative HEENT: Head: Yes normal to inspection Face and sinus: Yes normal facial exam Mouth: Normal oral and palatal mucosa present Teeth and gingiva: d entition normal Eyes: General: appearance normal, both eyes and all related structures P upils: Equal, round and reactive pupils present Resp: Effort & Inspection: normal respiratory effort Cardio: Rate: regular rate Rhythm: regular rhythm GI: Palpation (GI): Soft to palpation and nontender : General: Yes no CVA tenderness Back/Spine/Pelvis: Back: no CVA tenderness Skin: General skin exam: no rashes or lesions noted Neuro: General: moves all extremities Cranial nerves: Yes Equal, round and reactive pupils present Extrem: Other: left leg bloody area below knee,3 x 5 cm open area poor LE pulses no cellulitus or purulence Psych: Appearance: grossly normal Results Labs 06/07/25 06:53 06/07/25 06:53 Labs: Short CBC 06/07/25 Range/Units 06:53 WBC 8.7 (4.8-10.8) X10*3/uL Hgb 12.4 L (14.0-18.0) g/dl Hct 36.9 L (42.0-52.0) % Plt Count 172 (160-400) X10*3/uL BMP 06/07/25 06:53 Sodium 138 Potassium 3.7 Chloride 107 Carbon Dioxide 24 BUN 12 Creatinine 0.81 Calcium 9.4 Microbiology Microbiology Results: Microbiology 06/06/25 21:10 Blood - Venous Blood Culture - Preliminary No growth after 24 hours. 06/06/25 20:51 Blood - Venous Blood Culture - Preliminary Prelim: GPC Gram Stain only 06/07/25 03:04 Leg - Left Gram Stain - Final Assessment and Plan (1) PVD (peripheral vascular disease): Status: Acute (2) DVT (deep venous thrombosis): Qualifiers: DVT location: lower extremity Affected thrombotic vein of extremity: p opliteal Chronicity: acute Laterality: right Qualified Code(s): I82.431 - Acute embolism and thrombosis of right popliteal vein Status: Acute (3) Nonhealing skin ulcer: Status: Acute Plan There is no signs of fever,leukocytosis,purulence or cellulitis of wound or evidence of OM or abscess on CT of leg Blood culture is 1/2 probable contaminant so this is probably hematoma Would stop antibiotics if contaminant in blood. Continue wound care
[2025-06-08 00:01] VITALS: O2SAT 96
[2025-06-08 03:04] VITALS: BP 133/66; PULSE 67; RESP 18; TEMP 36.1; O2SAT 95
--- NOTE | 2025-06-08 04:07 | PC.NURSE ---
0400 Pleasant gentleman, Alert oriented x 4 ambulating to bathroom with walker utilizing call valero appropriately. Left lower gonzalez wound dressing loosened, requiring dressing changed of Normal saline wet to dry guaze/ 4x4 /abd pad/farideh. Wound s/p debridement w/ red bed and irregular borders. All pulses are strong by palpation. Pt given Tylenol for mild pain with good effect. Patient sleeping throught out the night. VSS.
[2025-06-08 06:05] LABS: INTERNATIONAL NORM RATIO 2.1 (0.9-1.1); Prothrombin Time 24.1 SEC (10.9-12.4)
[2025-06-08 06:11] LABS: Creatinine Clr Calc Pharmacy 53.3; Estimated Glomerular Filt Rate > 60
[2025-06-08 08:00] VITALS: BP 139/87; PULSE 73; RESP 16; TEMP 36.3; O2SAT 96
[2025-06-08] MEDS: 0.9 % Sodium Chloride Flush 3 ML SYRINGE IVFLUSH ×3 (08:19→20:06)
--- NOTE | 2025-06-08 09:19 | HO.VASCPN ---
Subjective Subjective Date of Service: 06/08/25 Patient reports: no new complaints and feels better Interval history: Patient seen and examined. No significant events overnight. States that his leg feels significantly better. He was up in a chair eating breakfast this morning. No interval issues overnight. Physical Exam Vital Signs: Vital Signs: Last Vital Signs Temp 97.3 F 06/08/25 08:00 Pulse 73 06/08/25 08:00 Resp 16 06/08/25 08:00 BP 139/87 06/08/25 08:00 Pulse Ox 96 06/08/25 08:00 O2 Del Method Room Air 06/08/25 08:00 BMI result Body Mass Index 23.7 Const: General: cooperative, healthy appearing and comfortable Orientation/consciousness: oriented to person, oriented to place and oriented to time HEENT: Head: Yes normal to inspection Neck: Neck: Yes normal visual inspection Carotids: no bruits Chest: Chest palpation & inspection: normal inspection of the chest Resp: Effort & Inspection: normal respiratory effort and able to speak in complete sentences Auscultation: clear to auscultation bilaterally, no crackles, no rales, no rhonchi and no wheezes Cardio: Rate: regular rate Rhythm: regular rhythm Heart sounds: S1 normal heart sound present and S2 normal heart sound present Bruits: no carotid bruits Peripheral pulses: Peripheral pulses 2+ throughout GI: Inspection: Yes normal to inspection Skin: Other: Left leg edema has significantly improved. In addition ulcer appears to be relatively clean. Wounds: no wounds Hair: normal Neuro: General: oriented to person, oriented to place and oriented to time Cranial nerves: Yes CN's II-XII intact bilaterally and Yes Normal hearing present Cognition (Neuro): normal cognition Motor exam (neuro): 5/5 motor strength present throughout Extrem: Other: venous exam: No significant superficial varicosities or spider telangiectasias, minimal edema General: No clubbing, No cyanosis and No edema Psych: Appearance: grossly normal Mental Status: mental status grossly normal Speech and movement: Normal speech and movement present Progress Note: A&P Assessment and plan (1) DVT (deep venous thrombosis): Status: Acute Assessment and Plan: In short left leg appears to be doing relatively well. I do think DVT is stable and will continue with Coumadin therapy. In addition he has a prior IVC filter in place. He can follow up with us in a proximally 2 weeks after discharge to ensure that the leg is doing well. Thank you for allowing us to assist in his care. If there are any questions or concerns please do not hesitate to contact us. Time Spent With Patient Time: Total time managing care of this patient today ____ minutes. Procedures Date of Service Date of Service: 06/08/25 Quality Stroke Does the patient have a stroke diagnosis?: No Reason for No Anti-thrombotic by Day Two: N/A - Med Ordered (Coumadin) VTE Prior VTE?: Yes VTE Risk Level:: Medical - moderate - high VTE Device Contraindication: Treatment Not Tolerated VTE Drug Contraindication: N/A - Med Ordered
--- NOTE | 2025-06-08 09:55 | P.PNIM_ITS ---
Subjective Subjective Date of Service: 06/08/25 Interval History: no leg pain no dyspnea no chest pain Review of Systems Review of Systems: Yes all other systems are reviewed and are negative Physical Exam 2 Vital Signs: Vital Signs: Last Vital Signs Temp 97.3 F 06/08/25 08:00 Pulse 73 06/08/25 08:00 Resp 16 06/08/25 08:00 BP 139/87 06/08/25 08:00 Pulse Ox 96 06/08/25 08:00 O2 Del Method Room Air 06/08/25 08:00 BMI result Body Mass Index 23.7 Gen: in no acute distress HEENT: sclera anicteric, moist mucus membranes Neck: supple Lungs: clear to auscultation bilaterally Heart: regular rate and rhythm, no murmurs Abd: soft, non-tender, non-distended Ext: no edema Skin: warm/well-perfused, L gonzalez with dry dressing Neuro: alert and oriented x3, no focal findings Psych: appropriate affect Objective Data Active Medications Acetaminophen (Acetaminophen 325 Mg Tablet) 650 mg PO Q6H PRN PRN Reason: Pain, Mild 1-3,fever,headache Last Admin: 06/07/25 22:50 Dose: 650 mg Documented By: INDY Albuterol/Ipratropium (Albuterol/Iprat 2.5/0.5mg 3 Ml Ampul.Neb) 3 ml INHALE Q4H PRN PRN Reason: Shortness of Breath/Wheezing Ascorbic Acid (Ascorbic Acid 500 Mg Tablet) 500 mg PO DAILY [facility] Last Admin: 06/08/25 08:19 Dose: 500 mg Documented By: AKUA Atorvastatin Calcium (Atorvastatin Calcium 80 Mg Tablet) 80 mg PO DAILY [facility] Last Admin: 06/08/25 08:19 Dose: 80 mg Documented By: AKUA Calcium Carbonate (Calcium Carbonate 750 Mg Tab.Chew) 750 mg PO Q4H PRN PRN Reason: Heartburn Cyanocobalamin (Cyanocobalamin (Vitamin B-12) 1,000 Mcg Tablet) 1,000 mcg PO DAILY [facility] Last Admin: 06/08/25 08:19 Dose: 1,000 mcg Documented By: AKUA Cyproheptadine HCl (Cyproheptadine Hcl 4 Mg Tablet) 4 mg PO BEDTIME [facility] Last Admin: 06/07/25 21:27 Dose: 4 mg Documented By: INDY Cefazolin Sodium/Dextrose (Ancef) 2 gm in 50 mls @ 100 mls/hr IV Q8H [facility] Last Infusion: 06/08/25 05:00 Dose: Infused Documented By: INDY Vancomycin HCl 1,500 mg/ (Sodium Chloride) 500 mls @ 333.333 mls/hr IV Q24H [facility] Magnesium Hydroxide (Milk Of Magnesia 30 Ml Oral.Susp) 30 ml PO DAILY PRN PRN Reason: Constipation Melatonin (Melatonin 3 Mg Tablet) 6 mg PO BEDTIME PRN PRN Reason: Insomnia Ondansetron HCl (Ondansetron Hcl 4 Mg/2 Ml Vial) 4 mg IVPUSH Q8H PRN PRN Reason: Nausea and Vomiting Pharmacy Consult (Consult Rx Vancomycin Dosing) 1 each MISCELLANE DAILY PRN PRN Reason: Consult order Polyethylene Glycol (Polyethylene Glycol 3350 17 Gm Powd.Pack) 17 gm PO DAILY PRN PRN Reason: Constipation Senna (Sennosides 8.6 Mg Tablet) 17.2 mg PO BEDTIME [facility] Last Admin: 06/07/25 21:27 Dose: 17.2 mg Documented By: INDY Sertraline HCl (Sertraline Hcl 25 Mg Tablet) 25 mg PO DAILY [facility] Last Admin: 06/08/25 08:19 Dose: 25 mg Documented By: AKUA Sodium Chloride (0.9 % Sodium Chloride Flush 3 Ml Syringe) 3 ml IVFLUSH QSHIFT [facility] Last Admin: 06/08/25 08:19 Dose: 3 ml Documented By: AKUA Tolterodine Tartrate (Tolterodine Tartrate La 4 Mg Cap.Er.24h) 4 mg PO DAILY [facility] Last Admin: 06/08/25 08:19 Dose: 4 mg Documented By: AKUA Vitamin D (Cholecalciferol (Vitamin D3) 25 Mcg Tablet) 25 mcg PO DAILY [facility] Last Admin: 06/08/25 08:19 Dose: 25 mcg Documented By: AKUA Warfarin Sodium (Warfarin Sodium 5 Mg Tablet) 5 mg PO DAILY@1800 [facility] Last Admin: 06/07/25 17:37 Dose: 5 mg Documented By: AKUA Labs 06/07/25 06:53 06/08/25 05:24 Labs: Laboratory Results - last 24 hr 06/08/25 05:24 Hold Purple Top SEE NOTE PT 24.1 H INR 2.1 H Estim Creat Clear Calc 53.3 Estimated GFR > 60 Microbiology Microbiology Results: Microbiology 06/06/25 20:51 Blood Culture - Final Blood - Venous Coag negative Staphylococcus 06/07/25 03:04 Gram Stain - Final Leg - Left Routine Culture - Preliminary Gram negative janelle 06/06/25 21:10 Blood Culture - Preliminary Blood - Venous No growth after 24 hours. Assessment and Plan (1) Leg wound, left: Status: Acute Assessment and Plan: d2, 89yo M with hypercoagulability, RLE DVT [May 2023], LLE DVT [Mar 2025] on warfarin and with IVC filter in place, prostate CA s/p artifical external sphincter, MGUS, and chronic LLE wound sent in by [facility] nurse due to concern of wound infection wound infection, LLE - sharply debrided at bedside by Gen Surg 06/07, Wound Care consulting, 06/07- cefazolin, blood culture growing Staph epidermidis [contaminant] so d/c vancomycin - Wound Care: Wet to dry fluff was placed to help with debridement of the exudate on the wound bed followed by dry fluffs and kerlix wrap. Cont IV abx, left leg elevation. Vascular consulted as well for DVT management, he is on coumadin. Will cont to follow, hopefully begin silver alginate prior to dc and can refer to wound care center for outpatient management. DVT LLE - US 06/07: Comparison is made with a prior study dated March 14, 2025. When compared to the prior exam, the extent of involvement of the femoral vein is improved with recanalization of proximal aspects. Thrombus within the mid and distal aspects of the femoral vein are similar to the prior study. Possible interval worsening of thrombosis at the level of the popliteal vein. Nonvisualization of the peroneal veins on the current exam. - continue warfarin, INR therapeutic [cannot afford Eliquis so will be on warfarin lifelong] - Vascular Surg consult: In short patient has persistent DVT. I did review the old and current ultrasound imaging. It does appear to be similar if not better than prior. There is some recanalization. In addition he does have an IVC filter in place. Would continue with local wound care per general surgery. HLD - statin mood disorder - sertraline VTE ppx: warfarin dispo: home with VNA for home PT and wound care In my clinical judgment, the patient requires continued inpatient hospitalization for the following reasons: IV ABX, wound care Total time managing care of this patient today: 45 minutes. Quality Stroke Does the patient have a stroke diagnosis?: No Reason for No Anti-thrombotic by Day Two: N/A - Med Ordered (Coumadin) VTE Prior VTE?: Yes VTE Risk Level:: Medical - moderate - high VTE Device Contraindication: Treatment Not Tolerated VTE Drug Contraindication: N/A - Med Ordered
--- NOTE | 2025-06-08 12:58 | HO.WOUND ---
Wound Consult: Initial 89 yr old male admitted to [facility] [place] on [place]07/25- See progress notes and H&P for detailed history. Wound consult placed for left leg. Patient agreeable to assessment and photo documentation. Left leg with trauma/bumping leg on something resulting in hematoma, necrotic tissue debrided by general surgery yesterday. Patient reports previously going to outpatient wound center for treatment of different wound, but cannot recall what. Would recommend wound care follow up upon discharge for further debridement and ongoing treatment. Left leg Etiology: hematoma Measurements: 6cm x 4cm x 0.2cm Wound Bed: moist yellow, black and red Drainage / Odor: no odor, moderate serosanguineous Edges: ? attached Akosua wound: ? No Induration, Fluctuance or Warmth noted, swelling and redness noted to leg Pain: mild with dressing change Goals of Treatment: ? durafiber for drainage control, antimicrobial effects, promotion of autolytic debridment. Recommendations: 1. Turn and Reposition every 2 hours and as needed for patient comfort. Use pillows or wedges to support off loading positions. 2. Off Load all bony prominences with use of pillows and heel boots if needed. Apply Preventative foams where needed. 3. Monitor for incontinence and moisture control, use barrier creams when needed for prevention and treatment. 4. Provide adequate and supplemental nutrition. 5. Order or Continue low air loss mattress. 6. When applicable maintain blood glucose levels per Providers order. Left leg: cleanse with saline, pat dry, apply durafiber ag, cover with ABD pad, wrap with rolled gauze, change daily and PRN Re-consult wound care Nurse for wound deterioration or wound changes.
--- NOTE | 2025-06-08 14:10 | MHC.CM.PN ---
EMR REVIEWED AND PER MD ROUNDS, PT IS NOT MEDICALLY CLEARED FOR DC HOME. [employer] [facility] CLINICALLY UPDATED VIA [employer]. CM WILL CONTINUE TO FOLLOW.
[2025-06-08 15:25] VITALS: BP 115/61; RESP 18; TEMP 36.1; O2SAT 96
[2025-06-08 16:25] VITALS: PULSE 65
[2025-06-08 19:40] VITALS: BP 117/59; PULSE 68; RESP 18; TEMP 36.1; O2SAT 95
[2025-06-09 03:15] VITALS: BP 115/58; PULSE 65; RESP 18; TEMP 36.1; O2SAT 95
--- NOTE | 2025-06-09 07:27 | HO.PM.IMPN ---
Subjective Subjective Date of Service: 06/09/25 Interval History: Blood culture deemed a contaminant, hence we will stop IV antibiotics ID consulted-no antibiotics indicated as we believe it is likely contaminant Vascular surgery consulted-we will follow up outpatient-no acute intervention needed during this hospitalization Physical Exam Exam: Exam: Left lower extremity wound significantly better General: AOx3, no acute distress Resp: CTA bilaterally CVS: S1, S2, RRR GI: +BS, NT, no distention Skin: Warm, dry Neuro: Cranial nerves II-XII grossly intact bilaterally. Motor grossly intact bilaterally Extremities: No edema Psych: Appropriate affect Vital Signs: Vital Signs: Last Vital Signs Temp 97 F 06/09/25 03:15 Pulse 65 06/09/25 03:15 Resp 18 06/09/25 03:15 BP 115/58 L 06/09/25 03:15 Pulse Ox 95 06/09/25 03:15 O2 Del Method Room Air 06/09/25 03:15 BMI result Body Mass Index 23.7 Objective Data Active Medications Acetaminophen (Acetaminophen 325 Mg Tablet) 650 mg PO Q6H PRN PRN Reason: Pain, Mild 1-3,fever,headache Last Admin: 06/07/25 22:50 Dose: 650 mg Documented By: INDY Albuterol/Ipratropium (Albuterol/Iprat 2.5/0.5mg 3 Ml Ampul.Neb) 3 ml INHALE Q4H PRN PRN Reason: Shortness of Breath/Wheezing Ascorbic Acid (Ascorbic Acid 500 Mg Tablet) 500 mg PO DAILY [facility] Last Admin: 06/08/25 08:19 Dose: 500 mg Documented By: AKUA Atorvastatin Calcium (Atorvastatin Calcium 80 Mg Tablet) 80 mg PO DAILY [facility] Last Admin: 06/08/25 08:19 Dose: 80 mg Documented By: AKUA Calcium Carbonate (Calcium Carbonate 750 Mg Tab.Chew) 750 mg PO Q4H PRN PRN Reason: Heartburn Cyanocobalamin (Cyanocobalamin (Vitamin B-12) 1,000 Mcg Tablet) 1,000 mcg PO DAILY [facility] Last Admin: 06/08/25 08:19 Dose: 1,000 mcg Documented By: AKUA Cyproheptadine HCl (Cyproheptadine Hcl 4 Mg Tablet) 4 mg PO BEDTIME [facility] Last Admin: 06/08/25 20:05 Dose: 4 mg Documented By: RAMIRO Cefazolin Sodium/Dextrose (Ancef) 2 gm in 50 mls @ 100 mls/hr IV Q8H [facility] Last Infusion: 06/09/25 04:38 Dose: Infused Documented By: RAMIRO Magnesium Hydroxide (Milk Of Magnesia 30 Ml Oral.Susp) 30 ml PO DAILY PRN PRN Reason: Constipation Melatonin (Melatonin 3 Mg Tablet) 6 mg PO BEDTIME PRN PRN Reason: Insomnia Ondansetron HCl (Ondansetron Hcl 4 Mg/2 Ml Vial) 4 mg IVPUSH Q8H PRN PRN Reason: Nausea and Vomiting Polyethylene Glycol (Polyethylene Glycol 3350 17 Gm Powd.Pack) 17 gm PO DAILY PRN PRN Reason: Constipation Senna (Sennosides 8.6 Mg Tablet) 17.2 mg PO BEDTIME [facility] Last Admin: 06/08/25 20:05 Dose: 17.2 mg Documented By: RAMIRO Sertraline HCl (Sertraline Hcl 25 Mg Tablet) 25 mg PO DAILY [facility] Last Admin: 06/08/25 08:19 Dose: 25 mg Documented By: AKUA Sodium Chloride (0.9 % Sodium Chloride Flush 3 Ml Syringe) 3 ml IVFLUSH QSHIFT [facility] Last Admin: 06/08/25 20:06 Dose: 3 ml Documented By: RAMIRO Tolterodine Tartrate (Tolterodine Tartrate La 4 Mg Cap.Er.24h) 4 mg PO DAILY [facility] Last Admin: 06/08/25 08:19 Dose: 4 mg Documented By: AKUA Vitamin D (Cholecalciferol (Vitamin D3) 25 Mcg Tablet) 25 mcg PO DAILY [facility] Last Admin: 06/08/25 08:19 Dose: 25 mcg Documented By: AKUA Warfarin Sodium (Warfarin Sodium 5 Mg Tablet) 5 mg PO DAILY@1800 [facility] Last Admin: 06/08/25 18:00 Dose: 5 mg Documented By: JERUSIA Labs 06/07/25 06:53 06/08/25 05:24 Microbiology Microbiology Results: Microbiology 06/06/25 21:10 Blood Culture - Preliminary Blood - Venous No growth after 48 hours. 06/06/25 20:51 Blood Culture - Final Blood - Venous Coag negative Staphylococcus 06/07/25 03:04 Gram Stain - Final Leg - Left Routine Culture - Preliminary Gram negative janelle Assessment and Plan (1) Leg wound, left: Status: Acute Assessment and Plan: d2, 89yo M with hypercoagulability, RLE DVT [May 2023], LLE DVT [Mar 2025] on warfarin and with IVC filter in place, prostate CA s/p artifical external sphincter, MGUS, and chronic LLE wound sent in by [facility] nurse due to concern of wound infection wound infection, LLE Initially there was a concern of acute sepsis, however upon workup, this is likely in the setting of chronic nonhealing wound, less likely an acute infectious etiology We will discontinue IV cefazolin given staph epidermidis blood culture x1 is likely a contaminant - Wound Care: Wet to dry fluff was placed to help with debridement of the exudate on the wound bed followed by dry fluffs and kerlix wrap. Cont IV abx, left leg elevation. Vascular consulted as well for DVT management, he is on coumadin. Will cont to follow, hopefully begin silver alginate prior to dc and can refer to wound care center for outpatient management. DVT LLE - US 06/07: Comparison is made with a prior study dated March 14, 2025. When compared to the prior exam, the extent of involvement of the femoral vein is improved with recanalization of proximal aspects. Thrombus within the mid and distal aspects of the femoral vein are similar to the prior study. Possible interval worsening of thrombosis at the level of the popliteal vein. Nonvisualization of the peroneal veins on the current exam. - continue warfarin, INR therapeutic [cannot afford Eliquis so will be on warfarin lifelong] - Vascular Surg consult: In short patient has persistent DVT. I did review the old and current ultrasound imaging. It does appear to be similar if not better than prior. There is some recanalization. In addition he does have an IVC filter in place. Would continue with local wound care per general surgery. Vascular surgery we will follow the patient outpatient in 2 weeks HLD - statin mood disorder - sertraline VTE ppx: warfarin dispo: home with VNA for home PT and wound care likely tomorrow as patient is medically optimized Total time managing care of this patient today: 45 minutes. Quality Stroke Does the patient have a stroke diagnosis?: No Reason for No Anti-thrombotic by Day Two: N/A - Med Ordered (Coumadin) VTE Prior VTE?: Yes VTE Risk Level:: Medical - moderate - high VTE Device Contraindication: Treatment Not Tolerated VTE Drug Contraindication: N/A - Med Ordered
[2025-06-09 07:36] LABS: INTERNATIONAL NORM RATIO 2.0 (0.9-1.1); Prothrombin Time 23.1 SEC (10.9-12.4)
[2025-06-09 07:56] VITALS: BP 112/57; PULSE 62; RESP 18; TEMP 36.1; O2SAT 94
[2025-06-09] MEDS: 0.9 % Sodium Chloride Flush 3 ML SYRINGE IVFLUSH ×3 (08:07→20:21)
--- NOTE | 2025-06-09 14:06 | HO.WOUND ---
Wound Consult: Follow up consultation 89 yr [place] [facility] [place] See progress notes and H&P for detailed history. Wound consult follow up for left leg. Patient agreeable to assessment and photo documentation. Left leg with trauma/bumping leg on something resulting in hematoma, necrotic tissue debrided by general surgery this admission. Patient reports previously going to outpatient wound center for treatment of different wound, but cannot recall what. Would recommend wound care follow up upon discharge for further debridement and ongoing treatment. 06/08/25 06/09/25 Left leg Etiology: hematoma Measurements: 5.5cm x 4.5cm x 0.3cm Wound Bed: moist yellow, black and red Drainage / Odor: no odor, moderate serosanguineous Edges: ? rolled Akosua wound: ? No Induration, Fluctuance or Warmth noted, swelling and redness noted to leg Pain: none reported at this time Goals of Treatment: ? durafiber along with Medihoney Order updated to include medihoney. Recommendations: 1. Turn and Reposition every 2 hours and as needed for patient comfort. Use pillows or wedges to support off loading positions. 2. Off Load all bony prominences with use of pillows and heel boots if needed. Apply Preventative foams where needed. 3. Monitor for incontinence and moisture control, use barrier creams when needed for prevention and treatment. 4. Provide adequate and supplemental nutrition. 5. Order or Continue low air loss mattress. 6. When applicable maintain blood glucose levels per Providers order. Left leg: cleanse with saline, pat dry, apply Medihoney followed durafiber ag, cover with ABD pad, wrap with rolled gauze, change daily while inpatient. May perform every other day at time of discharge. Re-consult wound care Nurse for wound deterioration or wound changes.
[2025-06-09 15:49] VITALS: BP 127/67; PULSE 66; RESP 18; TEMP 36.1; O2SAT 97
[2025-06-09 20:00] VITALS: BP 127/64; PULSE 80; RESP 18; TEMP 36.5; O2SAT 96
[2025-06-10 03:42] VITALS: BP 107/57; PULSE 72; RESP 18; TEMP 36.4; O2SAT 96
[2025-06-10 06:26] LABS: INTERNATIONAL NORM RATIO 2.2 (0.9-1.1); Prothrombin Time 25.3 SEC (10.9-12.4)
--- NOTE | 2025-06-10 07:16 | P.PNIM_ITS ---
Subjective Subjective Date of Service: 06/10/25 Physical Exam 2 Vital Signs: Vital Signs: Last Vital Signs Temp 97.6 F 06/10/25 03:42 Pulse 72 06/10/25 03:42 Resp 18 06/10/25 03:42 BP 107/57 L 06/10/25 03:42 Pulse Ox 96 06/10/25 03:42 O2 Del Method Room Air 06/10/25 03:42 BMI result Body Mass Index 23.7 Objective Data Active Medications Acetaminophen (Acetaminophen 325 Mg Tablet) 650 mg PO Q6H PRN PRN Reason: Pain, Mild 1-3,fever,headache Last Admin: 06/07/25 22:50 Dose: 650 mg Documented By: INDY Albuterol/Ipratropium (Albuterol/Iprat 2.5/0.5mg 3 Ml Ampul.Neb) 3 ml INHALE Q4H PRN PRN Reason: Shortness of Breath/Wheezing Ascorbic Acid (Ascorbic Acid 500 Mg Tablet) 500 mg PO DAILY [facility] Last Admin: 06/09/25 08:06 Dose: 500 mg Documented By: LINWOOD Atorvastatin Calcium (Atorvastatin Calcium 80 Mg Tablet) 80 mg PO DAILY [facility] Last Admin: 06/09/25 08:06 Dose: 80 mg Documented By: LINWOOD Calcium Carbonate (Calcium Carbonate 750 Mg Tab.Chew) 750 mg PO Q4H PRN PRN Reason: Heartburn Cyanocobalamin (Cyanocobalamin (Vitamin B-12) 1,000 Mcg Tablet) 1,000 mcg PO DAILY [facility] Last Admin: 06/09/25 08:06 Dose: 1,000 mcg Documented By: LINWOOD Cyproheptadine HCl (Cyproheptadine Hcl 4 Mg Tablet) 4 mg PO BEDTIME [facility] Last Admin: 06/09/25 20:19 Dose: 4 mg Documented By: SARAHY Magnesium Hydroxide (Milk Of Magnesia 30 Ml Oral.Susp) 30 ml PO DAILY PRN PRN Reason: Constipation Melatonin (Melatonin 3 Mg Tablet) 6 mg PO BEDTIME PRN PRN Reason: Insomnia Last Admin: 06/09/25 20:20 Dose: 6 mg Documented By: SARAHY Ondansetron HCl (Ondansetron Hcl 4 Mg/2 Ml Vial) 4 mg IVPUSH Q8H PRN PRN Reason: Nausea and Vomiting Polyethylene Glycol (Polyethylene Glycol 3350 17 Gm Powd.Pack) 17 gm PO DAILY PRN PRN Reason: Constipation Senna (Sennosides 8.6 Mg Tablet) 17.2 mg PO BEDTIME [facility] Last Admin: 06/09/25 20:19 Dose: 17.2 mg Documented By: SARAHY Sertraline HCl (Sertraline Hcl 25 Mg Tablet) 25 mg PO DAILY [facility] Last Admin: 06/09/25 08:06 Dose: 25 mg Documented By: LINWOOD Sodium Chloride (0.9 % Sodium Chloride Flush 3 Ml Syringe) 3 ml IVFLUSH QSHIFT [facility] Last Admin: 06/09/25 20:21 Dose: 3 ml Documented By: SARAHY Tolterodine Tartrate (Tolterodine Tartrate La 4 Mg Cap.Er.24h) 4 mg PO DAILY [facility] Last Admin: 06/09/25 08:06 Dose: 4 mg Documented By: LINWOOD Vitamin D (Cholecalciferol (Vitamin D3) 25 Mcg Tablet) 25 mcg PO DAILY [facility] Last Admin: 06/09/25 08:06 Dose: 25 mcg Documented By: LINWOOD Warfarin Sodium (Warfarin Sodium 5 Mg Tablet) 5 mg PO DAILY@1800 [facility] Last Admin: 06/09/25 17:53 Dose: 5 mg Documented By: LINWOOD Labs 06/07/25 06:53 06/08/25 05:24 Labs: Laboratory Results - last 24 hr 06/09/25 06/10/25 06:04 05:44 PT 23.1 H 25.3 H INR 2.0 H 2.2 H Microbiology Microbiology Results: Microbiology 06/07/25 03:04 Gram Stain - Final Leg - Left Routine Culture - Preliminary Escherichia coli Quality Stroke Does the patient have a stroke diagnosis?: No Reason for No Anti-thrombotic by Day Two: N/A - Med Ordered (Coumadin) VTE Prior VTE?: Yes VTE Risk Level:: Medical - moderate - high VTE Device Contraindication: Treatment Not Tolerated VTE Drug Contraindication: N/A - Med Ordered
[2025-06-10 07:54] VITALS: BP 112/64; PULSE 76; RESP 18; TEMP 36.1; O2SAT 93
[2025-06-10] MEDS: 0.9 % Sodium Chloride Flush 3 ML SYRINGE IVFLUSH (07:59)
--- NOTE | 2025-06-10 11:03 | MHC.CM.PN ---
Addendum entered by Myra Palomino RN 06/10/25 11:06: IMM delivered. Original Note: Per MD rounds, patient medically cleared for dc home w/ son and resumption of PT/SN via [facility]. [facility] updated. Dressing change will be every other day. Patient's friend has been taught wound care by RN and can assist PRN. Referral also faxed to [facility] per patient request. Son will transport home this afternoon. RN aware.
--- NOTE | 2025-06-10 11:47 | HO.WOUND ---
Wound Consult: Follow up consultation 89 yr [place] [facility] [place] See progress notes and H&P for detailed history. Wound consult follow up for left leg. Patient agreeable to assessment and photo documentation. Left leg with trauma/bumping leg on something resulting in hematoma, necrotic tissue debrided by general surgery this admission. Patient reports previously going to outpatient wound center for treatment of different wound, but cannot recall what. Would recommend wound care follow up upon discharge for further debridement and ongoing treatment. 06/08/25 06/09/25 06/10/25 Left leg Etiology: hematoma Measurements: 6cm x 4cm x 0.3cm Wound Bed: moist yellow, black/brown and red Drainage / Odor: no odor, moderate serosanguineous Edges: ? rolled [place] wound: ? No Induration, Fluctuance or Warmth noted, swelling and redness noted to leg Pain: none reported at this time Goals of Treatment: ? durafiber along with Medihoney Recommendations: 1. Turn and Reposition every 2 hours and as needed for patient comfort. Use pillows or wedges to support off loading positions. 2. Off Load all bony prominences with use of pillows and heel boots if needed. Apply Preventative foams where needed. 3. Monitor for incontinence and moisture control, use barrier creams when needed for prevention and treatment. 4. Provide adequate and supplemental nutrition. 5. Order or Continue low air loss mattress. 6. When applicable maintain blood glucose levels per Providers order. Left leg: cleanse with saline, pat dry, apply Medihoney [facility], cover with ABD pad, wrap with rolled gauze, change daily while inpatient. May perform every other day at time of discharge. Re-consult wound care Nurse for wound deterioration or wound changes.
--- NOTE | 2025-06-10 14:03 | P.DS_ITS ---
DS: Providers Provider Date of Service: 06/10/25 Date of admission: 06/07/25 00:34 Date of discharge: 06/10/25 Primary care physician: Bobbi Harris MD Consults: 06/07/25 01:49 Consult to Hematology / Oncology Routine Consulting Provider: [facility] [place] Reason for consultation: on coumadin continues with DVT L fem/pop vein ? MUGA Has provider been notified: No Consult to Wound Care Routine Reason for consultation: Left leg wound with eschar 06/07/25 01:50 Consult to General Surgery Routine Consulting Provider: [facility] [place] [facility] Reason for consultation: Left leg wound, ? debridement Has provider been notified: No Consult to Vascular Surgery Routine Consulting Provider: [facility] [place] [facility] Reason for consultation: Left leg wound, known PVD, DVT Left pop/fem vein Has provider been notified: No 06/07/25 07:36 Consult to Infectious Diseases Routine Consulting Provider: [facility] [place] [facility] Reason for consultation: wound infection DS: Diagnosis Discharge Diagnosis (1) Leg wound, left: Status: Acute DS: Summary Hospital Course Hospital Course: Acute on chronic nonhealing LLE wound secondary to chronic venous stasis ulcers 89yo M with hypercoagulability, RLE DVT [May 2023], LLE DVT [Mar 2025] on warfarin and with IVC filter in place, prostate CA s/p artifical external sphincter, MGUS, and chronic LLE wound sent in by [facility]NA nurse due to concern of wound infection. Initially there was a concern of acute sepsis, however upon workup, this is likely in the setting of chronic nonhealing wound, less likely an acute infectious etiology. He was treated with IV antibiotics, and there was 1 out of 2 blood cultures that were staph epidermidis, deemed a contaminant. Wound Care consulted, continuing wound care-instructions as below - Wound Care: Wet to dry fluff was placed to help with debridement of the exudate on the wound bed followed by dry fluffs and kerlix wrap. Cont IV abx, left leg elevation. Vascular consulted as well for DVT management, he is on coumadin. Will cont to follow, hopefully begin silver alginate prior to dc and can refer to wound care center for outpatient management. DVT LLE - US 06/07: Comparison is made with a prior study dated March 14, 2025. When compared to the prior exam, the extent of involvement of the femoral vein is improved with recanalization of proximal aspects. Thrombus within the mid and distal aspects of the femoral vein are similar to the prior study. Possible interval worsening of thrombosis at the level of the popliteal vein. Nonvisualization of the peroneal veins on the current exam. - continue warfarin, INR therapeutic [cannot afford Eliquis so will be on warfarin lifelong] - Vascular Surg consult: In short patient has persistent DVT. I did review the old and current ultrasound imaging. It does appear to be similar if not better than prior. There is some recanalization. In addition he does have an IVC filter in place. Would continue with local wound care per general surgery. Vascular surgery will follow the patient outpatient in 2 weeks after discharge- likely week of June HLD - continued statin mood disorder - continued sertraline VTE ppx: warfarin (secondary to financial constraints) dispo: home with VNA for home PT and wound care continued Total time managing care of this patient today: 45 minutes. Time spent discussing smoking cessation with patient: more than 10 minutes Status at Discharge Functional status at discharge: bed bound Overall status at discharge: patient is progressing back to baseline Time Attestation Discharge Coordination Time (in mins): 35 Quality: Safe Use of Opioids Does Pt have an Active Cancer Diagnosis on the Problem List?: No Quality: Stroke Does the patient have a stroke diagnosis?: No Physical Exam Vital Signs: Vital Signs: Last Vital Signs Temp 97.0 F 06/10/25 07:54 Pulse 76 06/10/25 07:54 Resp 18 06/10/25 07:54 BP 112/64 06/10/25 07:54 Pulse Ox 93 06/10/25 07:54 O2 Del Method Room Air 06/10/25 07:54 BMI result Body Mass Index 23.7 DS: Data Data Completed and Pending Completed studies during hospitalization [Text1]: Procedures Drainage of Retroperitoneum with Drainage Device, Percutaneous Approach (06/07/23) Insertion of Intraluminal Device into Inferior Vena Cava, Percutaneous Approach (06/07/23) Labs on day of discharge: Laboratory Results - last 24 hr 06/10/25 05:44 PT 25.3 H INR 2.2 H Preliminary micro results at discharge 06/07/25 03:04 Routine Culture - Preliminary Leg - Left Culture in progress. 06/06/25 21:10 Blood Culture - Preliminary Blood - Venous No growth after 48 hours. Discharge Plan Discharge Anticipated Discharge Date/Time: 06/10/25 13:23 Patient Disposition: Home Health Service Discharge Diagnosis: chronic nonhealing wound , noninfected with workup Referrals: Bobbi Harris MD [Primary Care Provider, Internal Medicine] - 1 Week Discharge Medications: Continued (DME) Wheel chair Kit See Rx Instructions .Route Qty: 1 0RF Rx Instructions: 16 inch with elevating leg rest (manual) rosuvastatin 40 mg tablet 40 mg PO DAILY Qty: 30 3RF tolterodine 4 mg capsule,extended release 24hr 4 mg PO DAILY Qty: 90 0RF sertraline 50 mg tablet 25 mg PO DAILY Qty: 90 0RF cyproheptadine 4 mg tablet 4 mg PO BEDTIME Qty: 90 0RF warfarin 5 mg tablet 5 mg PO DAILY Qty: 30 2RF Protocol: Dose Management Condition: Friday (Week One) Dose/Route: 5 mg Instruction: 1 x 5 mg tablet Condition: Friday Dose/Route: 5 mg Instruction: 1 x 5 mg tablet Condition: Friday Dose/Route: 5 mg Instruction: 1 x 5 mg tablet Condition: Friday Dose/Route: 5 mg Instruction: 1 x 5 mg tablet Condition: Dose/Route: 5 mg Instruction: 1 x 5 mg tablet Condition: Friday Dose/Route: 5 mg Instruction: 1 x 5 mg tablet Condition: Friday Dose/Route: 5 mg Instruction: 1 x 5 mg tablet Condition: Friday (Week Two) Dose/Route: 5 mg Instruction: 1 x 5 mg tablet Condition: Friday Dose/Route: 5 mg Instruction: 1 x 5 mg tablet Condition: Friday Dose/Route: 5 mg Instruction: 1 x 5 mg tablet Condition: Friday Dose/Route: 5 mg Instruction: 1 x 5 mg tablet Condition: Dose/Route: 5 mg Instruction: 1 x 5 mg tablet Condition: Friday Dose/Route: 5 mg Instruction: 1 x 5 mg tablet Condition: Friday Dose/Route: 5 mg Instruction: 1 x 5 mg tablet Protocol Text: Adjustment Start Date: Friday06/03/25 INR Value: 1.9 INR Date: 06/03/25 Recheck Date: 06/10/25 cyanocobalamin (vitamin B-12) [Vitamin B-12] 1,000 mcg Tablet 1,000 mcg PO DAILY cholecalciferol (vitamin D3) 25 mcg (1,000 unit) capsule 25 mcg PO DAILY (DME) comp.stocking,knee,long,medium Misc See Rx Instructions .Route Qty: 2 0RF Rx Instructions: As directed Culturelle 15 billion cell capsule, sprinkle 1 cap PO DAILY Qty: 90 2RF ascorbate calcium (vitamin C) 500 mg tablet 500 mg PO DAILY polyethylene glycol 3350 [Miralax] 17 gram/dose powder 17 g PO DAILY Qty: 510 2RF meloxicam 7.5 mg tablet 7.5 mg PO DAILY Qty: 30 2RF Discharge Orders: Discharge Order (Routine); Ordered 06/10/25 Ordered By: Georgette Hess Diet: Low salt diet Activity on Discharge: As tolerated Stand Alone Forms: Patient Portal Discharge page Print Language: Yi Activity Restrictions/Additional Instructions: Topical Wound Care Recommendations: Left leg: cleanse with saline, pat dry, apply Medihoney followed Nexamp ag, cover with ABD pad, wrap with rolled gauze, change daily while inpatient. May perform every other day at time of discharge. Wound Care: Wet to dry fluff was placed to help with debridement of the exudate on the wound bed followed by dry fluffs and kerlix wrap. Cont IV abx, left leg elevation. Vascular consulted as well for DVT management, he is on coumadin. Will cont to follow, hopefully begin silver alginate prior to dc and can refer to wound care center for outpatient management. Recommend follow up out patient Wound Clinic at [address] [place] [phone] and to call for an appointment at time of discharge. [phone].? Care Plan Goals: Wound care management Physical therapy Health Concerns: PCP follow-up Wound care follow-up Vascular consult follow-up Plan of Treatment: See above Assessment: See above
[2025-06-10 15:17] VITALS: BP 110/55; PULSE 87; RESP 18; TEMP 36.4; O2SAT 96
--- NOTE | 2025-06-10 20:20 | PC.NURSE ---
Pts daughter Molly called myself as clin sup to inquire about where the prescription for the PO antibiotic is. I printed DC paperwork and do not see any ABX script or new orders, I did note in the instructions it states continue IV abx I called Osiris Sheikh as covering hospitalist this faustina and explained. She states she will contact discharging provider and get clarification. She was given the patients preferred pharmacy ([facility]) Pts daughter Molly updated by phone by me.
--- OUTSIDE RECORDS SUMMARY | 2025-07-10 20:00 | XMS_ITS | Clinical Summary ---
Author Organization Unknown Care Team Providers Care Mechanical Spreader Operator Name Role Phone PO INTERSTATE, LORENVER Unavailable Unavaila leonel ASIF RN, CORRINE Unavailable Unavailab angelica WATERS PT, RODRÍGUEZ Unavailable Unavailable KONSTANTIN SERGEANT MISSILE CREWMAN, MYA Unavailable Unavailable Payers Payer Name Policy Type Policy Number Effective Date Expira tion Date MEDICARE.[facility] [id number] Problems Condition Name Condition Details Condition Category Status Onset Date Resolution Date Last Treatment Date Treating Clinician Comments LACERATION WITHOUT FOREIGN BODY OF LEFT ELBOW, SUBS ENCNTR Active 05-13 00:00: 00 CELLULITIS OF LEFT LOWER LIMB Active 05-13 00:00: 00 VENOUS INSUFFICIENC Y (CHRONIC) (PERIPHERAL) Active 09-08 00:00: 00 ANEMIA, UNSPECIFIED Active 09-08 00:00: 00 DYSPHAGIA, UNSPECIFIED Active 09-08 00:00: 00 HYPERLIPIDEM IA, UNSPECIFIED Active 09-08 00:00: 00 HISTORY OF FALLING Active 05-13 00:00: 00 RESIDENTIAL (CURRENT) USE OF NON-STEROIDA L NON-INFLAM (NSAID) Active 05-13 00:00: 00 PERSONAL HISTORY OF OTHER VENOUS THROMBOSIS AND EMBOLISM Active 09-08 00:00: 00 PERSONAL HISTORY OF URINARY (TRACT) INFECTIONS Active 09-08 00:00: 00 PERSONAL HISTORY OF COVID-19 Active 09-08 00:00: 00 PERSONAL HISTORY OF MALIGNANT NEOPLASM OF PROSTATE Active 09-08 00:00: 00 Allergies, Adverse Reactions, Alerts Allergy Name Allergy Type Status Severity Reaction(s) Onset Date Inactive Date Treating Clinician Comments NO KNOWN ALLERGIES Propensity to adverse reactions Active 05-13 15:16: 11 Medications Ordered Medication Name Filled Medication Name Start Date Stop Date Current Medication? Ordering Clinician Indication Dosage Frequency Signature (SIG) Comments Components cephalexin 500 mg capsule 05-12 00:00: 00 05-20 23:59 :00 No [id number] CELLULITIS 1 capsule 3 TIMES DAILY 1 capsule 3 TIMES DAILY (route: oral) Med Classific ation: Anti-Infe ctive Agents warfarin 5 mg tablet 04-27 00:00: 00 05-16 23:59 :00 No [id number] DVT 1 tablet DAILY 1 tablet DAILY (route: oral) Med Classific ation: Hematolog ical Agents cyproheptad ine 4 mg tablet 04-18 00:00: 00 Yes [id number] ANTIHISTAMI NE 1 tablet AT BEDTIME 1 tablet AT BEDTIME (route: oral) Med Classific ation: Respirato ry Therapy Agents albuterol sulfate HFA 90 mcg/actuati on aerosol inhaler 05-13 00:00: 00 Yes [id number] WHEEZING 2 puff EVERY 4 HOURS 2 puff EVERY 4 HOURS (route: inhalation ) Med Classific ation: Respirato ry Therapy Agents cholecalcif rafy (vitamin D3) 25 mcg (1,000 unit) capsule 05-13 00:00: 00 Yes [id number] SUPPLEMENT 1 capsule DAILY 1 capsule DAILY (route: oral) Med Classific ation: Electroly te Balance-N utritiona l Products Culturelle 15 billion cell sprinkle capsule 05-13 00:00: 00 Yes [id number] PROBIOTIC 1 capsule DAILY 1 capsule DAILY (route: oral) Med Classific ation: Gastroint estinal Therapy Agents meloxicam 7.5 mg tablet 05-13 00:00: 00 Yes [id number] PAIN 1 tablet DAILY 1 tablet DAILY (route: oral) Med Classific ation: Analgesic , Anti-infl ammatory or Antipyret ic Miralax 17 gram/dose oral powder 05-13 00:00: 00 Yes [id number] CONSTIPATIO N 17 gram DAILY 17 gram DAILY (route: oral) Med Classific ation: Gastroint estinal Therapy Agents psyllium husk 0.52 gram capsule 05-13 00:00: 00 Yes [id number] CONSTIPATIO N 1.04 g DAILY 1.04 g DAILY (route: oral) Med Classific ation: Gastroint estinal Therapy Agents rosuvastati n 40 mg tablet 05-13 00:00: 00 Yes [id number] CHOLESTEROL 1 tablet DAILY 1 tablet DAILY (route: oral) Med Classific ation: Cardiovas cular Therapy Agents Senna Lax 8.6 mg tablet 05-13 00:00: 00 Yes [id number] CONSTIPATIO N 1 tablet BEDTIME 1 tablet BEDTIME (route: oral) Med Classific ation: Gastroint estinal Therapy Agents sertraline 25 mg tablet 05-13 00:00: 00 Yes [id number] MOOD 1 tablet DAILY 1 tablet DAILY (route: oral) Med Classific ation: Central Nervous System Agents tolterodine ER 4 mg capsule,ext ended release 24 hr 05-13 00:00: 00 Yes [id number] OAB 1 capsule DAILY 1 capsule DAILY (route: oral) Med Classific ation: Genitouri nary Therapy Vitamin C 500 mg tablet 05-13 00:00: 00 Yes [id number] SUPPLEMENT 1 tablet DAILY 1 tablet DAILY (route: oral) Med Classific ation: Electroly te Balance-N utritiona l Products warfarin 2.5 mg tablet 05-24 00:00: 00 Yes [id number] ANTICOAG Per instruc tions 2 TIMES A WEEK Per instructio ns 2 TIMES A WEEK (route: oral) Med Classific ation: Hematolog ical Agents Vital Signs Vital Name Observation Time Observation Value Commen ts Temperature 2025-06-03 10:11:00.000 97.8 [degF] Temperature 2025-05-30 12:13:00.000 98.5 [degF] Temperature 2025-05-27 12:04:00.000 97.4 [degF] Temperature 2025-05-26 14:47:00.000 98.1 [degF] Temperature 2025-05-24 05:54:00.000 97.8 [degF] Temperature 2025-05-20 16:24:00.000 98.3 [degF] Temperature 2025-05-18 15:13:00.000 97.7 [degF] Temperature 2025-05-17 06:57:00.000 97.1 [degF] Temperature 2025-05-13 15:17:00.000 97.9 [degF] BMI (%) 2025-05-13 14:52:46.000 26 kg/m2 Height 2025-05-13 14:52:18.000 70 [in_us] Pulse 2025-06-03 10:11:00.000 61 /min Pulse 2025-05-30 12:13:00.000 72 /min Pulse 2025-05-27 12:04:00.000 84 /min Pulse 2025-05-26 14:47:00.000 72 /min Pulse 2025-05-24 05:54:00.000 70 /min Pulse 2025-05-20 16:24:00.000 79 /min Pulse 2025-05-18 15:13:00.000 80 /min Pulse 2025-05-17 06:57:00.000 74 /min Pulse 2025-05-13 15:17:00.000 67 /min O2 Saturation (%) 2025-06-03 10:11:00.000 96 % O2 Saturation (%) 2025-05-27 12:04:00.000 96 % O2 Saturation (%) 2025-05-26 14:47:00.000 96 % O2 Saturation (%) 2025-05-24 05:55:00.000 95 % O2 Saturation (%) 2025-05-20 16:24:00.000 97 % O2 Saturation (%) 2025-05-18 15:13:00.000 97 % O2 Saturation (%) 2025-05-17 06:59:00.000 96 % O2 Saturation (%) 2025-05-13 15:17:00.000 95 % Respirations 2025-06-03 10:11:00.000 18 /min Respirations 2025-05-30 12:13:00.000 18 /min Respirations 2025-05-27 12:04:00.000 18 /min Respirations 2025-05-26 14:47:00.000 18 /min Respirations 2025-05-24 05:54:00.000 18 /min Respirations 2025-05-20 16:24:00.000 18 /min Respirations 2025-05-18 15:13:00.000 18 /min Respirations 2025-05-17 06:57:00.000 18 /min Respirations 2025-05-13 15:17:00.000 16 /min Weight (lbs) 2025-05-13 14:52:46.000 185 [lb_av] Systolic Blood Pressure 2025-06-03 10:11:00.000 104 mm [Hg] Systolic Blood Pressure 2025-05-30 12:14:00.000 100 mm [Hg] Systolic Blood Pressure 2025-05-27 12:04:00.000 120 mm [Hg] Systolic Blood Pressure 2025-05-26 14:47:00.000 116 mm [Hg] Systolic Blood Pressure 2025-05-24 05:54:00.000 126 mm [Hg] Systolic Blood Pressure 2025-05-20 16:24:00.000 110 mm [Hg] Systolic Blood Pressure 2025-05-18 15:13:00.000 122 mm [Hg] Systolic Blood Pressure 2025-05-17 06:57:00.000 118 mm [Hg] Systolic Blood Pressure 2025-05-13 15:17:00.000 108 mm [Hg] Diastolic Blood Pressure 2025-06-03 10:11:00.000 50 mm [Hg] Diastolic Blood Pressure 2025-05-30 12:14:00.000 60 mm [Hg] Diastolic Blood Pressure 2025-05-27 12:04:00.000 60 mm [Hg] Diastolic Blood Pressure 2025-05-26 14:47:00.000 72 mm [Hg] Diastolic Blood Pressure 2025-05-24 05:54:00.000 72 mm [Hg] Diastolic Blood Pressure 2025-05-20 16:24:00.000 60 mm [Hg] Diastolic Blood Pressure 2025-05-18 15:13:00.000 72 mm [Hg] Diastolic Blood Pressure 2025-05-17 06:57:00.000 74 mm [Hg] Diastolic Blood Pressure 2025-05-13 15:17:00.000 62 mm [Hg] Plan of Treatment Planned Activity Planned Date Details Comments Future Scheduled Test RN TO OBSE RVE, ASSESS, EVALUATE, AND DEVELOP AN INDIVIDUALIZED PLAN OF CARE. AGENCY MAY ACCEPT ORDERS FROM CONSULTING PHYSICIANS RN TO OBSERVE AND ASSESS, DISPENSING AND MEASURING OPTICIAN/SECURITY REPRESENTATIVE TO OBSERVE FOR RISK FOR FALLS AND INSTRUCT IN FALL PREVENTION, HOME SAFETY, MEDICATION MANAGEMENT, INFECTION PREVENTION, AND NUTRITION MANAGEMENT. RN/DISPENSING AND MEASURING OPTICIAN/SECURITY REPRESENTATIVE NURSE MAY PERFORM O2 SATURATION LEVEL ON ADMISSION AND PRN FOR RN TO ASSESS/DISPENSING AND MEASURING OPTICIAN TO OBSERVE PATIENT, WITH NOTIFICATION TO THE PHYSICIAN IF SATURATION IS 90% IN THE ABSENCE OF MORE SPECIFIC PARAMETERS FROM THE PHYSICIAN. AGENCY MAY PERFORM A RESUMPTION OF CARE VISIT FOLLOWING ANY HOSPITAL ADMISSION. RN/DISPENSING AND MEASURING OPTICIAN/SECURITY REPRESENTATIVE TO MONITOR CO-MORBID CONDITIONS LISTED ON THE PLAN OF CARE AND ANY NEW CONDITIONS THAT PRESENT THEMSELVES DURING THIS EPISODE TO IDENTIFY CHANGES AND INTERVENE TO MINIMIZE COMPLICATIONS. [code = RN TO OBSERVE, ASSESS, EVALUATE, AND DEVELOP AN INDIVIDUALIZED PLAN OF CARE. AGENCY MAY ACCEPT ORDERS FROM CONSULTING PHYSICIANS RN TO OBSERVE AND ASSESS, DISPENSING AND MEASURING OPTICIAN/SECURITY REPRESENTATIVE TO OBSERVE FOR RISK FOR FALLS AND INSTRUCT IN FALL PREVENTION, HOME SAFETY, MEDICATION MANAGEMENT, INFECTION PREVENTION, AND NUTRITION MANAGEMENT. RN/DISPENSING AND MEASURING OPTICIAN/SECURITY REPRESENTATIVE NURSE MAY PERFORM O2 SATURATION LEVEL ON ADMISSION AND PRN FOR RN TO ASSESS/DISPENSING AND MEASURING OPTICIAN TO OBSERVE PATIENT, WITH NOTIFICATION TO THE PHYSICIAN IF SATURATION IS 90% IN THE ABSENCE OF MORE SPECIFIC PARAMETERS FROM THE PHYSICIAN. AGENCY MAY PERFORM A RESUMPTION OF CARE VISIT FOLLOWING ANY HOSPITAL ADMISSION. RN/DISPENSING AND MEASURING OPTICIAN/SECURITY REPRESENTATIVE TO MONITOR CO-MORBID CONDITIONS LISTED ON THE PLAN OF CARE AND ANY NEW CONDITIONS THAT PRESENT THEMSELVES DURING THIS EPISODE TO IDENTIFY CHANGES AND INTERVENE TO MINIMIZE COMPLICATIONS.] Future Scheduled Test MEDICATION MANAGEMENT; RN/DISPENSING AND MEASURING OPTICIAN/SECURITY REPRESENTATIVE TO REVIEW MEDICATIONS FOR INTERACTIONS, EFFECTIVENESS OF DRUG THERAPY, AND SIGNS/SYMPTOMS OF ADVERSE REACTIONS. MAY INSTRUCT AND REINFORCE MEDICATION TEACHING RELATED TO THE USE OF MEDICATIONS, DOSAGE, FREQUENCY, PURPOSE, SIDE EFFECTS, AND TO REPORT COMPLICATIONS. [code = MEDICATION MANAGEMENT; RN/DISPENSING AND MEASURING OPTICIAN/SECURITY REPRESENTATIVE TO REVIEW MEDICATIONS FOR INTERACTIONS, EFFECTIVENESS OF DRUG THERAPY, AND SIGNS/SYMPTOMS OF ADVERSE REACTIONS. MAY INSTRUCT AND REINFORCE MEDICATION TEACHING RELATED TO THE USE OF MEDICATIONS, DOSAGE, FREQUENCY, PURPOSE, SIDE EFFECTS, AND TO REPORT COMPLICATIONS.] Future Scheduled Test ANTITHROMB OTIC MANAGEMENT; RN TO ASSESS AND TEACH, DISPENSING AND MEASURING OPTICIAN/SECURITY REPRESENTATIVE TO OBSERVE/TEACH/MONITOR EFFECTIVENESS OF ANTITHROMBOTIC THERAPY. RN/DISPENSING AND MEASURING OPTICIAN/SECURITY REPRESENTATIVE TO INSTRUCT ON SIGNS AND SYMPTOMS OF BLEEDING/ADVERSE REACTIONS TO REPORT TO PHYSICIAN. RN/DISPENSING AND MEASURING OPTICIAN/SECURITY REPRESENTATIVE TO PERFORM PT/INR VIA VENIPUNCTURE OR COAGUCHECK ORDERED RN/DISPENSING AND MEASURING OPTICIAN/SECURITY REPRESENTATIVE TO FAX/CALL IN RESULTS TO [facility] TIMELY [code = ANTITHROMBOTIC MANAGEMENT; RN TO ASSESS AND TEACH, DISPENSING AND MEASURING OPTICIAN/SECURITY REPRESENTATIVE TO OBSERVE/TEACH/MONITOR EFFECTIVENESS OF ANTITHROMBOTIC THERAPY. RN/DISPENSING AND MEASURING OPTICIAN/SECURITY REPRESENTATIVE TO INSTRUCT ON SIGNS AND SYMPTOMS OF BLEEDING/ADVERSE REACTIONS TO REPORT TO PHYSICIAN. RN/DISPENSING AND MEASURING OPTICIAN/SECURITY REPRESENTATIVE TO PERFORM PT/INR VIA VENIPUNCTURE OR COAGUCHECK ORDERED RN/DISPENSING AND MEASURING OPTICIAN/SECURITY REPRESENTATIVE TO FAX/CALL IN RESULTS TO [facility] TIMELY] Future Scheduled Test RISK FOR H OSPITALIZATION; RN TO ASSESS/TEACH, SECURITY REPRESENTATIVE/DISPENSING AND MEASURING OPTICIAN TO OBSERVE/TEACH PATIENT/CAREGIVER ON RISK FOR HOSPITALIZATION/EMERGENCY ROOM VISITS, TEACH SIGNS AND SYMPTOMS THAT PUT PATIENT AT RISK, WHEN TO NOTIFY NURSE/PHYSICIAN OF COMPLICATIONS/DECLINE, AND WHEN TO CALL 911. [code = RISK FOR HOSPITALIZATION; RN TO ASSESS/TEACH, SECURITY REPRESENTATIVE/DISPENSING AND MEASURING OPTICIAN TO OBSERVE/TEACH PATIENT/CAREGIVER ON RISK FOR HOSPITALIZATION/EMERGENCY ROOM VISITS, TEACH SIGNS AND SYMPTOMS THAT PUT PATIENT AT RISK, WHEN TO NOTIFY NURSE/PHYSICIAN OF COMPLICATIONS/DECLINE, AND WHEN TO CALL 911.] Future Scheduled Test SN TO PERF ORM/TEACH PATIENT/CAREGIVER WOUND CARE TO SKIN TEAR L ELBOW:GENTLY CLEANSE W SOAP AND WATER, PAT DRY AND COVER W DCD MONITOR FOR S/S OF INFECTION AT EACH SNV VISIT. KEEP GORDO WRAP IN PLACE, CHANGE PRN IF SOILED [code = SN TO PERFORM/TEACH PATIENT/CAREGIVER WOUND CARE TO SKIN TEAR L ELBOW:GENTLY CLEANSE W SOAP AND WATER, PAT DRY AND COVER W DCD MONITOR FOR S/S OF INFECTION AT EACH SNV VISIT. KEEP GORDO WRAP IN PLACE, CHANGE PRN IF SOILED] Future Scheduled Test PAIN MANAG EMENT; RN TO ASSESS AND TEACH, SECURITY REPRESENTATIVE/DISPENSING AND MEASURING OPTICIAN TO OBSERVE AND TEACH AND PROVIDE EDUCATION ON PAIN MANAGEMENT TECHNIQUES. [code = PAIN MANAGEMENT; RN TO ASSESS AND TEACH, SECURITY REPRESENTATIVE/DISPENSING AND MEASURING OPTICIAN TO OBSERVE AND TEACH AND PROVIDE EDUCATION ON PAIN MANAGEMENT TECHNIQUES.] Future Scheduled Test BLOOD CLOT MANAGEMENT; RN TO ASSESS AND TEACH/ DISPENSING AND MEASURING OPTICIAN /SECURITY REPRESENTATIVE TO OBSERVE AND TEACH AND PROVIDE EDUCATION ON BLOOD CLOT MANAGEMENT. [code = BLOOD CLOT MANAGEMENT; RN TO ASSESS AND TEACH/ DISPENSING AND MEASURING OPTICIAN /SECURITY REPRESENTATIVE TO OBSERVE AND TEACH AND PROVIDE EDUCATION ON BLOOD CLOT MANAGEMENT.] Future Scheduled Test FALL REDUC TION MANAGEMENT; RN TO ASSESS AND OBSERVE, DISPENSING AND MEASURING OPTICIAN/SECURITY REPRESENTATIVE TO OBSERVE FALL RISK FACTORS AND EDUCATE PATIENT/CAREGIVER ON STRATEGIES TO MINIMIZE THE RISK OF FALLING. [code = FALL REDUCTION MANAGEMENT; RN TO ASSESS AND OBSERVE, DISPENSING AND MEASURING OPTICIAN/SECURITY REPRESENTATIVE TO OBSERVE FALL RISK FACTORS AND EDUCATE PATIENT/CAREGIVER ON STRATEGIES TO MINIMIZE THE RISK OF FALLING.] Future Scheduled Test PHYSICAL T HERAPIST TO EVALUATE FOR HOME EXERCISE PROGRAM [code = PHYSICAL THERAPIST TO EVALUATE FOR HOME EXERCISE PROGRAM] Future Scheduled Test AGENCY MAY PERFORM A RESUMPTION OF CARE VISIT FOLLOWING ANY HOSPITAL ADMISSION. PT TO EVALUATE, OBSERVE / ASSESS, AND MONITOR, SERGEANT MISSILE CREWMAN TO OBSERVE AND MONITOR, PROVIDE SKILLED THERAPEUTIC INTERVENTION, ACTIVITY, EDUCATION, AND TRAINING TO ADDRESS; PT/SERGEANT MISSILE CREWMAN TO PROVIDE GAIT TRAINING FOR IMPROVED MOBILITY AND /OR TO NORMALIZE GAIT PATTERN THERAPEUTIC EXERCISES AND ESTABLISHING A HOME EXERCISE PROGRAM (PT/SERGEANT MISSILE CREWMAN) PT/SERGEANT MISSILE CREWMAN TO PROVIDE STAIR TRAINING SIT TO/FROM STAND TRANSFERS (PT/SERGEANT MISSILE CREWMAN) CHAIR TRANSFERS (PT/SERGEANT MISSILE CREWMAN) PT TO ASSESS / SERGEANT MISSILE CREWMAN TO MONITOR FOR AND REPORT EARLY SIGNS OF ANTICOAGULANT TOXICITY TO THE PHYSICIAN AND/OR THE RN CLINICAL COIN PURSE ASSEMBLER FOR PHYSICIAN NOTIFICATION AND TO PROVIDE PATIENT/CAREGIVER EDUCATION ON ANTICOAGULANT THERAPY PT / SERGEANT MISSILE CREWMAN TO MONITOR AND EDUCATE ON OXYGEN SATURATION DURING ADLS/IADLS, NOTIFY PHYSICIAN AND/OR THE RN CLINICAL COIN PURSE ASSEMBLER FOR PHYSICIAN NOTIFICATION AND IF O2 SATS BELOW PHYSICIAN ORDERED PARAMETERS AFTER 10 MIN OF REST PT / SERGEANT MISSILE CREWMAN MAY EDUCATE ON PAIN MANAGEMENT CLINICALLY INDICATED, INCLUDING NON-PHARMACOLOGICAL PAIN REDUCTION TECHNIQUES AND USE OF CRYOTHERAPY OR HEAT UP TO 20 MIN AT A TIME FOR PAIN MANAGEMENT 4-6 TIMES PER DAY PT/SERGEANT MISSILE CREWMAN TO IDENTIFY FALL RISK FACTORS; EDUCATE THE PATIENT/CAREGIVER ON WAYS TO REDUCE FALL RISK FACTORS AND ESTABLISH HOME EXERCISE PROGRAM TO MINIMIZE FALL RISK. MAY TEACH THE PATIENT FLOOR RECOVERY WHEN CLINICALLY APPROPRIATE [code = AGENCY MAY PERFORM A RESUMPTION OF CARE VISIT FOLLOWING ANY HOSPITAL ADMISSION. PT TO EVALUATE, OBSERVE / ASSESS, AND MONITOR, SERGEANT MISSILE CREWMAN TO OBSERVE AND MONITOR, PROVIDE SKILLED THERAPEUTIC INTERVENTION, ACTIVITY, EDUCATION, AND TRAINING TO ADDRESS; PT/SERGEANT MISSILE CREWMAN TO PROVIDE GAIT TRAINING FOR IMPROVED MOBILITY AND /OR TO NORMALIZE GAIT PATTERN THERAPEUTIC EXERCISES AND ESTABLISHING A HOME EXERCISE PROGRAM (PT/SERGEANT MISSILE CREWMAN) PT/SERGEANT MISSILE CREWMAN TO PROVIDE STAIR TRAINING SIT TO/FROM STAND TRANSFERS (PT/SERGEANT MISSILE CREWMAN) CHAIR TRANSFERS (PT/SERGEANT MISSILE CREWMAN) PT TO ASSESS / SERGEANT MISSILE CREWMAN TO MONITOR FOR AND REPORT EARLY SIGNS OF ANTICOAGULANT TOXICITY TO THE PHYSICIAN AND/OR THE RN CLINICAL COIN PURSE ASSEMBLER FOR PHYSICIAN NOTIFICATION AND TO PROVIDE PATIENT/CAREGIVER EDUCATION ON ANTICOAGULANT THERAPY PT / SERGEANT MISSILE CREWMAN TO MONITOR AND EDUCATE ON OXYGEN SATURATION DURING ADLS/IADLS, NOTIFY PHYSICIAN AND/OR THE RN CLINICAL COIN PURSE ASSEMBLER FOR PHYSICIAN NOTIFICATION AND IF O2 SATS BELOW PHYSICIAN ORDERED PARAMETERS AFTER 10 MIN OF REST PT / SERGEANT MISSILE CREWMAN MAY EDUCATE ON PAIN MANAGEMENT CLINICALLY INDICATED, INCLUDING NON-PHARMACOLOGICAL PAIN REDUCTION TECHNIQUES AND USE OF CRYOTHERAPY OR HEAT UP TO 20 MIN AT A TIME FOR PAIN MANAGEMENT 4-6 TIMES PER DAY PT/SERGEANT MISSILE CREWMAN TO IDENTIFY FALL RISK FACTORS; EDUCATE THE PATIENT/CAREGIVER ON WAYS TO REDUCE FALL RISK FACTORS AND ESTABLISH HOME EXERCISE PROGRAM TO MINIMIZE FALL RISK. MAY TEACH THE PATIENT FLOOR RECOVERY WHEN CLINICALLY APPROPRIATE] Goal Patient Goal - TO BE ABLE TO WALK BETTER Goal Provider Goal - A PLAN OF CARE WILL BE ESTABLISHED THAT MEETS THE PATIENT S NEEDS. PATIENT WILL DEMONSTRATE OXYGEN SATURATION WITHIN NORMAL LIMITS OR PATIENT S OPTIMAL LEVEL ESTABLISHED BY THE PHYSICIAN THROUGHOUT CARE. CHANGES TO CO-MORBID CONDITIONS AND ANY NEW CONDITIONS WILL BE IDENTIFIED AND REPORTED TO THE PHYSICIAN. Goal Provider Goal - PATIENT/CAREGIVER TO VERBALIZE, AND CONSISTENTLY DEMONSTRATE EFFECTIVE, SAFE MANAGEMENT OF MEDICATION INCLUDING KNOWLEDGE OF EFFECTIVENESS, POTENTIAL SIDE EFFECTS AND DRUG REACTIONS AND WHEN TO CONTACT THE APPROPRIATE CARE PROVIDER. PATIENT/CAREGIVER WILL BE ABLE TO VERBALIZE UNDERSTANDING OF MEDICATION REGIMEN AND ACCURATELY TAKE MEDICATIONS PRESCRIBED WITHOUT ADVERSE EFFECTS BY EOE Goal Provider Goal - PATIENT / CAREGIVER WILL PROMPTLY REPORT SIGNS AND SYMPTOMS OF BLEEDING OR ADVERSE REACTIONS TO THE PHYSICIAN. PATIENT/CAREGIVER WILL VERBALIZE UNDERSTANDING OF ANTITHROMBOTIC THERAPY MANAGEMENT BY END OF EPISODE. Goal Provider Goal - PATIENT/CAREGIVER WILL VERBALIZE UNDERSTANDING OF SIGNS AND SYMPTOMS THAT PUT THE PATIENT AT RISK FOR HOSPITALIZATION /EMERGENCY ROOM VISITS, WHEN TO NOTIFY NURSE/PHYSICIAN OF COMPLICATIONS/DECLINE AND WHEN TO CALL 911. Goal Provider Goal - PATIENT / CAREGIVER WILL VERBALIZE/DEMONSTRATE ABILITY TO PERFORM WOUND CARE. WOUND STATUS WILL IMPROVE EVIDENCED BY A DECREASE IN SIZE, DRAINAGE, ABSENCE OF INFECTION, AND DECREASED PAIN BY EOE Goal Provider Goal - PATIENT / CAREGIVER WILL VERBALIZE / DEMONSTRATE UNDERSTANDING OF PAIN CONTROL MEASURES BY EOE Goal Provider Goal - PATIENT/CAREGIVER WILL VERBALIZE UNDERSTANDING OF CARE AND MANAGEMENT OF BLOOD CLOT BY END OF EPISODE. Goal Provider Goal - PATIENT/CAREGIVER WILL VERBALIZE/DEMONSTRATE UNDERSTANDING OF FALL RISK FACTORS AND IMPLEMENT STRATEGIES TO MINIMIZE FALL RISK. PATIENT/CAREGIVER WILL VERBALIZE/DEMONSTRATE AN ABILITY TO ADHERE TO FALL REDUCTION SELF-MANAGEMENT AND LIFE-STYLE CHANGES BY EOE Goal Provider Goal - Goal Provider Goal - PT LTG: PATIENT WILL DEMONSTRATE IMPROVED SAFE FUNCTIONAL MOBILITY BY AMBULATING 200 FT ON ALL SURFACES USING LRAD FROM SBA TO INDEPENDENT WITHIN 8 WEEKS IN ORDER TO LEAVE HOME FOR APPOINTMENTS PT LTG: PATIENT WILL DEMONSTRATE REDUCED GAIT DEVIATIONS TO REDUCE THE RISK FOR FALLING AND MINIMIZE STRAIN ON KNEES/HIPS AND BACK EVIDENCED BY IMPROVED STEP LENGTH USING LRAD TO WALK INDEPENDENTLY IN ORDER TO ACCESS ENTIRE HOME WITHIN 8 WEEKS PT LTG: PATIENT WILL DEMONSTRATE IMPROVED FUNCTIONAL STRENGTH EVIDENCED BY FIVE TIMES SIT TO STAND TEST (CUT SCORE >12 SECONDS INDICATES AN INCREASED FALL RISK) IMPROVING FROM UNABLE TO 15 SEC WITHIN 8 WEEKS IN ORDER TO REDUCE FALL RISK DURING SEATED TRANSFERS PT LTG: PATIENT WILL DEMONSTRATE INCREASED STRENGTH OF L LE FROM 3+ TO 4 WITHIN 8 WEEKS IN ORDER IMPROVE ALL TRANSFERS PT LTG: PATIENT WILL DEMONSTRATE IMPROVED ABILITY TO SAFELY NEGOTIATE STAIRS FROM MIN ASSIST TO INDEPENDENT WITH LRAD IN ORDER TO LEAVE HOME SAFELY WITHIN 8 WEEKS PT STG: PATIENT WILL DEMONSTRATE IMPROVED ABILITY TO PERFORM SIT TO/FROM STAND TRANSFERS TO REDUCE THE RISK OF SKIN BREAKDOWN AND REDUCE FALL RISK FROM CGA TO INDEPENDENT WITHIN 4 WEEKS PT LTG: PATIENT WILL DEMONSTRATE IMPROVED ABILITY TO PERFORM CHAIR TRANSFERS TO REDUCE THE RISK OF SKIN BREAKDOWN AND FALL RISK FROM CGA TO INDEPENDENT WITHIN 8 WEEKS PT LTG: PATIENT WILL NOT EXHIBIT SIGNS AND SYMPTOMS OF ANTICOAGULANT TOXICITY THROUGHOUT EPISODE OF CARE. PT LTG: PATIENT WILL MAINTAIN OXYGEN SATURATION WITHIN PHYSICIAN ORDERED PARAMETERS THROUGHOUT EPISODE OF CARE. PT GOAL: PATIENT WILL DEMONSTRATE UNDERSTANDING OF PAIN MANAGEMENT TECHNIQUES EVIDENCED BY REDUCED PAIN IN L LE FROM 8 MAX TO 0 WITHIN 8 WEEKS PT LTG: PATIENT/CAREGIVER WILL DEMONSTRATE ADHERENCE TO FALL REDUCTION SELF-MANAGEMENT AND REDUCING FALL RISK FACTORS TO MINIMIZE FALL RISK BY END OF EPISODE PT LTG: PATIENT WILL BE INDEPENDENT WITH IMPLEMENTATION OF HEP WITHIN 8 WEEKS PT LTG: CAREGIVER WILL BE INDEPENDENT ASSISTING PATIENT TO COMPLETE HEP WITHIN 8 WEEKS Progress Notes Progress Notes <paragraph>[Visit Date: 2024 by CORRINE ASIF RN]:</paragraph><paragraph>SNV FOR WOUND AND INR MANAGEMENT</paragraph><paragraph></paragraph><paragraph>PATIENT CONTINUES WITH LARGE HEMATOMA TO LEFT LATERAL CALF, SOME DRIED BLOODY DRAINAGE NOTED AGAIN. PATIENT WOUND STARTING TO OPEN SLIGHTLY AT THE TOP, GAUZE HAD TO BE SOAKED IN SALINE TO PREVENT RIPPING SKIN. WHEN WOUNDREDRESSED, USED ABD PAD INSTEAD OF GSUZE TO PREVENT STICKING, EDUCATED PATIENT TO KEEP IT ELEVATED, AND BE CAREFUL NOT TO BUMP IT. OVERALL HEMATOMA IS SMALLER IN SIZE, PATIENT REPORTS NOT HAVING PAIN, EXCEPT AT NIGHT IT WILL THROB, THEN IT GOES AWAY. PATIENT CONTINUES TO NEED COUMADIN FOR HIS AFIB, INR WAS 1.9 TODAY, SPOKE WITH GAMAL FROM COUMADIN CLINIC, PATIENT TO CONTINUE SCHEDULE OF 5 MG OF COUMADIN NIGHTLY, AND REPEAT INR VIA COAGUCHECK OR VENIPUNCTURE ON Friday06/10/25. PATIENT EDUCATED ON SCHEDULE STAYING THE SAME, AND THAT HISXRANGE IS 2-3, EXPRESSED UNDERSTANDING. REVIEWED MEDICATIONS WITH NO CHANGES OR ISSUES AT THIS TIME. REVIEWED FALL PRECAUTIONS, BLEEDING PRECAUTIONS, WHEN TO CALL [facility], AND WHEN TO CALL 911. PATIENT CONTINUES TO BE HOMEBOUND DUE TO WEAKNESS, SHORTNESS OF BREATH WITH AMBULATION, AND NEEDING ASSISTANCE TO LEAVE HOME.</paragraph> Encounters Start Date/Time End Date/Time Encounter Type Admission Type Attending [facility] Care Facility Care Department Encounter ID Discharge Date Discharge Status Discharge Condition Discharge Reason Percent Goals Met 2025-05-13 00:00:00 2025-07-11 00:00:00 Outpatient NEW ADMISSION CORRINE ASIF [facility] [id number] 19.05
== END 2025-06-10 15:50 | disposition home health service (06) | DRG 264 ==
LOC: HO.ED 06-07 00:43 → HO.EDOVER 06-07 00:54 → HO.S3 06-07 08:35
PROVIDERS: Family Medicine; Nurse Practitioner Family; Physician Assistant Medical; Admitting Provider Internal Medicine; Emergency Provider Emergency Medicine; PCP Internal Medicine; Visit Provider Student in an Organized Health Care Education/Training Program
DX: I87.2 Venous insufficiency (chronic) (peripheral) (principal); D68.59 Other primary thrombophilia; I82.512 Chronic embolism and thrombosis of left femoral vein; I82.532 Chronic embolism and thrombosis of left popliteal vein; L03.116 Cellulitis of left lower limb; L97.829 Non-pressure chronic ulcer of other part of left lower leg with unspecified severity; S81.812S Laceration without foreign body, left lower leg, sequela; Z66 Do not resuscitate; Z85.46 Personal history of malignant neoplasm of prostate; Z79.01 Long term (current) use of anticoagulants; Z79.899 Other long term (current) drug therapy
CPT/HCPCS: 36415; 73590; 73701; 80048; 80053; 81001; 81003; 82565; 83605; 85025; 85610; 85652; 86140; 87040; 87070; 87077; 87147; 87186; 87205; 93971; 97116; 97162; 99285; J0690; J3373; Q9967

== ENCOUNTER → 2025-06-06 17:36 | Outpatient (BNV) | payer MEDICARE, SELFPAY | PROVIDERS: Emergency Provider Emergency Medicine; PCP Internal Medicine; Visit Provider Radiology Diagnostic Radiology | DX: R22.42 Localized swelling, mass and lump, left lower limb (principal); M85.862 Other specified disorders of bone density and structure, left lower leg | CPT/HCPCS: 73590; 93971 ==

== ENCOUNTER → 2025-06-07 00:34 | Outpatient (BNV) | payer MEDICARE, SELFPAY | PROVIDERS: Admitting Provider Internal Medicine; Emergency Provider Emergency Medicine; PCP Internal Medicine; Visit Provider Family Medicine | DX: S81.802A Unspecified open wound, left lower leg, initial encounter (principal); I82.431 Acute embolism and thrombosis of right popliteal vein; Z79.01 Long term (current) use of anticoagulants | CPT/HCPCS: 99223; 99232; 99239; 99499 ==

== ENCOUNTER → 2025-06-07 00:34 | Outpatient (BNV) | payer MEDICARE, SELFPAY | PROVIDERS: Admitting Provider Internal Medicine; Emergency Provider Emergency Medicine; PCP Internal Medicine; Visit Provider Physician Assistant Surgical | DX: S81.802A Unspecified open wound, left lower leg, initial encounter (principal); T14.8XXA Other injury of unspecified body region, initial encounter | CPT/HCPCS: 99222 ==

== ENCOUNTER → 2025-06-07 00:34 | Outpatient (BNV) | payer MEDICARE, SELFPAY | PROVIDERS: Admitting Provider Internal Medicine; Emergency Provider Emergency Medicine; PCP Internal Medicine; Visit Provider Internal Medicine | DX: I73.9 Peripheral vascular disease, unspecified (principal); I82.431 Acute embolism and thrombosis of right popliteal vein; L98.499 Non-pressure chronic ulcer of skin of other sites with unspecified severity | CPT/HCPCS: 99222 ==

== ENCOUNTER → 2025-06-07 00:34 | Outpatient (BNV) | payer MEDICARE, SELFPAY | PROVIDERS: Admitting Provider Internal Medicine; Emergency Provider Emergency Medicine; PCP Internal Medicine; Visit Provider Surgery Vascular Surgery | DX: I82.431 Acute embolism and thrombosis of right popliteal vein (principal) | CPT/HCPCS: 99222; 99232 ==

== ENCOUNTER 2025-06-23 14:23 | Outpatient (AMB) | payer MEDICARE, SELFPAY ==
[2025-06-23 14:32] VITALS: BP 102/52; PULSE 81; O2SAT 96; BMI 23.6
--- NOTE | 2025-06-23 14:32 | MHC.PC.OV ---
Vital Signs 06/23/25 14:32 Height 5 ft 8 in Weight 155 lb BMI 23.6 BP 102/52 L Blood Pressure Location Lt brachial Position Sitting Pulse 81 Pulse Source Pulse Oximeter Pulse Oximetry (%) 96 Oxygen Delivery Method Room Air Intake Visit Reasons: Constipation, the depression Allergies No Known Allergies Allergy (Mild, Verified 06/23/25 14:32) N/A Tobacco use date assessed: 02/22/25 Fall risk assessment: No Falls in past year Last assessed Fall Risk: 06/23/25 Dental Screening Dental Screen Date: 02/22/25 [facility] Medical History Varicose veins of right lower extremity with inflammation Leg wound, right Decreased appetite Adult general medical exam Diarrhea Cellulitis Dysphagia Nausea Frequency of micturition Venous insufficiency COVID-19 virus infection Leukocytosis Normocytic anemia Hyponatremia Low sodium levels Hypercholesterolemia Prostate cancer Osteoarthritis, shoulder Surgical History History of radical prostatectomy Erectile dysfunction following urethral surgery Family History Father Diabetes Social History Household Members: Children Household Members Other:: daughter Housing: House Do you presently have visiting nurse or other home services: Yes Alcohol intake: never Patient Tobacco Use Status: Never used Tobacco Tobacco use type: Cigarette e-Cigarette/Vaping Use: Never Used Second Hand Smoke Exposure: No Advance Directives Date on File: 08/24/21 service: No Current occupational status: retired 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 Current occupational exposures/hazards: Yes (worked 'near' asbestos) Cognitive needs: Yes (cane) Hearing needs: No Vision needs: Yes Questionnaire Thrive Questionnaire Date Thrive assessed: 03/23/25 I am a: Patient What is your living situation today?: I have a steady place to live Within the past 12 months, did the food you bought not last and you didn't have the money to get more?: Never true Within the past 12 months, did you worry whether your food would run out before you got money to buy more?: Never true Do you have trouble paying for medicines?: I choose not to answer this question Do you have trouble getting transportation to medical appointments?: I choose not to answer this question Do you have trouble paying your heating and electricity bill?: I choose not to answer this question Do you have trouble taking care of your child, family member or friend?: I choose not to answer this question Do you have trouble with day-to-day activities such as bathing, preparing meals, shopping, managing finances, etc.?: I choose not to answer this question Are you currently unemployed and looking for a job?: Yes Are you interested in more education?: No Please select the resources that you would like help with: None Currently or been in a relationship where the following occur: No concerns reported THRIVE Score: 0 NESHA-7 AMB Questionnaire NESHA-7 Date NESHA - 7 assessed: 02/22/25 Source: Developed by Drs. Warner Gandhi, Ava Machuca, Mt Calderon and colleagues, with an educational conrad from [employer]. Physical exam (Primary Care) Vital Signs: Last Vital Signs Pulse 81 06/23/25 14:32 BP 102/52 L 06/23/25 14:32 Pulse Ox 96 06/23/25 14:32 Oxygen Delivery Method Room Air 06/23/25 14:32 BMI result Body Mass Index 23.6 Tobacco/Smoking Status: Tobacco use Status Tobacco use date assessed 02/22/25 06/23/25 14:33 Patient Tobacco Use Status Never used Tobacco 06/23/25 14:33 Tobacco use type Cigarette 06/23/25 14:33 e-Cigarette/Vaping Use Never Used 06/23/25 14:33 Thrive Assessment: Date of Thrive Assessment Date Thrive assessed 03/23/25 06/23/25 14:33 Currently or been in a relationship where the following occur: No concerns reported Const General: alert; No acute distress Eyes Conjunctivae: conjunctivae normal Resp Auscultation: clear to auscultation bilaterally Cardio Rate: regular rate Rhythm: regular rhythm GI Inspection: Yes normal to inspection Extrem General: Yes normal to inspection and No edema Coding Level of Care Code Est Pt Level 4 (51811) Complex EM visit Add On G2211 Diagnoses PVD (peripheral vascular disease) I73.9 Hypercholesterolemia E78.00 Acute deep vein thrombosis (DVT) of popliteal vein of right lower extremity I82.431 Affected thrombotic vein of extremity: popliteal Chronicity: acute DVT location: lower extremity Laterality: right Prostate cancer C61 Wound of left lower extremity, initial encounter S81.802A Encounter type: initial encounter Assessment & Plan Assessment & Plan (1) PVD (peripheral vascular disease): Code(s): I73.9 - Peripheral vascular disease, unspecified Category: Medical Plan: When sitting down elevate the legs, exercise, and support stockings (2) Hypercholesterolemia: Code(s): E78.00 - Pure hypercholesterolemia, unspecified Category: Medical Plan: Avoid fried foods, chicken skin, eggs, butter margarine, pastries and meat. Be it pork or beef they have a lot of cholesterol on rosuvastatin 40 mg once a day (3) DVT (deep venous thrombosis): Comment: 2022 with IVC filter, 01/2024 No evidence of acute deep venous thrombosis in the right lower extremity with some persistent chronic changes in the distal popliteal vein. 2. 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 3. Left-sided Leal's cyst. Code(s): I82.409 - Acute embolism and thrombosis of unspecified deep veins of unspecified lower extremity Category: Medical Qualifiers: Affected thrombotic vein of extremity: popliteal Chronicity: acute DVT location: lower extremity Laterality: right Qualified Code(s): I82.431 - Acute embolism and thrombosis of right popliteal vein Plan: Continue with anticoagulation with Coumadin (4) Prostate cancer: Comment: 2000 radical prostatectomy adjuvant radiotherapy for elevated PSA 2008 Code(s): C61 - Malignant neoplasm of prostate Category: Medical Plan: Continue to follow-up with urology (5) Leg wound, left: Code(s): S81.802A - Unspecified open wound, left lower leg, initial encounter Category: Medical Qualifiers: Encounter type: initial encounter Qualified Code(s): S81.802A - Unspecified open wound, left lower leg, initial encounter Plan: Patient is being followed up by Wound Care as well as the vascular surgeon. Plan History of Present Illness The patient is an 89-year-old male presenting with anticoagulation management and preventative care review. The patient has been managing his anticoagulation therapy with INR levels currently at 2.2, which is slightly below the desired range of 2 to 3. He reports adherence to his medication regimen but acknowledges not drinking a lot of water. In terms of preventative care, the patient has received his flu shot at [facility] and is up to date with his shingles, tetanus, RSV, and pneumonia vaccinations. Health Maintenance - Vaccinations: Flu, shingles, tetanus, RSV, and pneumonia Social History Review of Systems Physical Exam Results - Labs: INR level at 2.2 Plan Patient was informed and verbally consented to the use of an ambient scribe for clinic note documentation during this visit. 1. Anticoagulation Management The patient's INR level is currently at 2.2, which is slightly below the therapeutic range of 2 to 3. The patient is advised to continue monitoring his INR levels and maintain adherence to his anticoagulation regimen. 2. Preventative Care The patient is up to date with his vaccinations, including flu, shingles, tetanus, RSV, and pneumonia. He is advised to maintain his current vaccination schedule and ensure adequate hydration and nutrition. Discussion Notes During the visit, we discussed the importance of maintaining the INR within the therapeutic range of 2 to 3 for effective anticoagulation management. I advised the patient to continue monitoring his INR levels and adhere to his medication regimen. We also reviewed his vaccination status, confirming that he is up to date with his flu, shingles, tetanus, RSV, and pneumonia vaccinations. Patient Instructions - Continue monitoring INR levels and adhere to anticoagulation medication. - Maintain current vaccination schedule. - Ensure adequate hydration and nutrition.
--- OUTSIDE RECORDS SUMMARY | 2025-06-23 18:09 | XMS_ITS | Patient Health Record ---
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 confirmed Problem Pain in limb (95253613) Pain in Limb (729.5) Active confirmed Plan Of Treatment Pending Test Test Name Order Date X ray : Foot, right 2V 12/06/2013 Insurance Providers Payer Name Payer Address Payer Phone Subscriber Number Group Number Insured Name Patient Relationship to Insured Coverage Start Date Coverage End Date Medicare [facility] [address] [place] [id number] [id number] Sukhwinder Maynard Self - patient is the insured [employer] [address] [place] [address] [id number] Sukhwinder Maynard Self - patient is the insured Medical (General) History Medical History History ICD Code prostate cancer Surgical History Surgery Date(Month/Year) prostate cancer 2000 AUS, AND BOTOX 100 UNITS INJECTED INTO B LADDER 12/31/13
--- OUTSIDE RECORDS SUMMARY | 2025-06-23 18:10 | XMS_ITS | Patient Health Record ---
Author Organization [facility] Address [address] [place] [address] Care Team Providers Care Clinical Programmer Name Role Phone Po Bobbi TROY Primary Care Provider Warner Sinclair [phone] Allergies No Known Allergies Reason For Referral No Information Medications Medication SIG (Take, Route, Frequency, Duration) Notes Start Date End Date Status Vitamin C 500mg Acti ve Tolterodine Tartrate ER 4 MG Oral; Duration: 90 Active Cyproheptadine HCl 4 MG TAKE 1 TABLET BY MOUTH AT BEDTIME Oral; Duration: 90 Active MiraLax 17 GM 1 packet mixed with 8 ounces of fluid Orally Once a day; Duration: 30 day(s) Active Rosuvastatin Calcium 40 MG TAKE 1 TABLET BY MOUTH DAILY Oral; Duration: 30 Active Albuterol Sulfate HFA 108 (90 Base) MCG/ACT Inhalation; Duration: 16 Active Vitamin B-12 1000 MCG 1 tablet Orally On ce a day; Duration: 30 day(s) Active Senna 8.6 MG 2 tablets at bedtime as needed Orally Once a day; Duration: 30 day(s) 12/04/2023 Active Sertraline HCl 25 MG 1 tablet Orally Onc e a day; Duration: 30 day(s) Active Meloxicam 15 MG 1 tablet Orally Once a day; Duration: 30 day(s) Active Culturelle Active Gemtesa 75 MG 1 tablet Orally Once a day Active Vitamin D3 Active Aspirin 81 81 MG 1 tablet Orally Once a day; Duration: 30 day(s) Active Immunizations Vaccine Route Administration Date Status Comme nts Influenza Unknown 05/09/2021 Administered Influenza Unknown 06/10/2022 Administered Problems Problem Type SNOMED Code ICD Code Onset Dates Problem Status W/U Status Risk Notes Problem Weight loss (387195520) Weight loss (R63.4) Active confirmed Problem Early satiety (402028285) Early satiety (R68.81) Active confirmed Problem Barium swallow abnormal (520019722) Abnormal barium swallow (R93.3) Active confirmed Plan Of Treatment Future Test Test Name Order Date COLONOSCOPY 07/09/2012 UPPER GI ENDOSCOPY BALLOOON DILATION OF ESOPH 05/02/2022 Insurance Providers Payer Name Payer Address Payer Phone Subscriber Number Group Number Insured Name Patient Relationship to Insured Coverage Start Date Coverage End Date MEDICARE OF [place] [address] [place] [address] [id number] JOHN MINAYA Self - patient is the insured [employer] CLAIMS [address] [place] [address] [id number] JOHN MINAYA Self - patient is the insured Medical (General) History Medical History History ICD Code Colonoscopy was in 11-07-2008 with removal of small tubular adenomas Colon and rectal polyps-tubular adenomas Hyperlipidemia Denies AR,DM,CVA,Lung disease,renal dise ase Prostate cancer with prostat [...]
--- OUTSIDE RECORDS SUMMARY | 2025-07-10 20:00 | XMS_ITS | Clinical Summary ---
Author Organization Unknown Care Team Providers Care Health Professional Name Role Phone ANTHONY NOBLES, SHERLYN Unavailable Unavaila leonel ASIF RN, CORRINE Unavailable Unavailab angelica WATERS PT, RODRÍGUEZ Unavailable Unavailable KONSTANTIN CIGARETTE SELLER, MYA Unavailable Unavailable Payers Payer Name Policy Type Policy Number Effective Date Expira tion Date MEDICARE.NGS.PDGM [id number] Problems Condition Name Condition Details Condition Category Status Onset Date Resolution Date Last Treatment Date Treating Clinician Comments VENOUS INSUFFICIENC Y (CHRONIC) (PERIPHERAL) Active 09-08 00:00: 00 NON-PRS CHRONIC ULCER OTH PRT L LOW LEG W FAT LAYER EXPOSED Active 2024-09 00:00: 00 CELLULITIS OF LEFT LOWER LIMB Active 05-13 00:00: 00 ANEMIA, UNSPECIFIED Active 09-08 00:00: 00 DYSPHAGIA, UNSPECIFIED Active 09-08 00:00: 00 HYPERLIPIDEM IA, UNSPECIFIED Active 09-08 00:00: 00 HISTORY OF FALLING Active 05-13 00:00: 00 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-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 (NSAID) [...] 05-12 00:00: 00 05-20 23:59 :00 No [id number] CELLULITIS 1 capsule 3 TIMES DAILY 1 capsule 3 TIMES DAILY (route: oral) Med Classific ation: Anti-Infe ctive Agents warfarin 5 mg tablet 04-27 00:00: 00 05-16 23:59 :00 No [id number] DVT 1 tablet DAILY 1 tablet DAILY (route: oral) Med Classific ation: Hematolog ical Agents cyproheptad ine 4 mg tablet 04-18 00:00: 00 Yes [id number] ANTIHISTAMI NE 1 tablet AT BEDTIME 1 tablet AT BEDTIME (route: oral) Med Classific ation: Respirato ry Therapy Agents albuterol sulfate HFA 90 mcg/actuati on aerosol inhaler 05-13 00:00: 00 Yes [id number] WHEEZING 2 puff EVERY 4 HOURS 2 puff EVERY 4 HOURS (route: inhalation ) Med Classific ation: Respirato ry Therapy Agents cholecalcif rafy (vitamin D3) 25 mcg (1,000 unit) capsule 05-13 00:00: 00 Yes [id number] SUPPLEMENT 1 capsule DAILY 1 capsule DAILY (route: oral) Med Classific ation: Electroly te Balance-N utritiona l Products Culturelle 15 billion cell sprinkle capsule 05-13 00:00: 00 Yes [id number] PROBIOTIC 1 capsule DAILY 1 capsule DAILY (route: oral) Med Classific ation: Gastroint estinal Therapy Agents meloxicam 7.5 mg tablet 05-13 00:00: 00 Yes [id number] PAIN 1 tablet DAILY 1 tablet DAILY (route: oral) Med Classific ation: Analgesic , Anti-infl ammatory or Antipyret ic Miralax 17 gram/dose oral powder 05-13 00:00: 00 Yes [id number] CONSTIPATIO N 17 gram DAILY 17 gram DAILY (route: oral) Med Classific ation: Gastroint estinal Therapy Agents psyllium husk 0.52 gram capsule 05-13 00:00: 00 Yes [id number] CONSTIPATIO N 1.04 g DAILY 1.04 g DAILY (route: oral) Med Classific ation: Gastroint estinal Therapy Agents rosuvastati n 40 mg tablet 05-13 00:00: 00 Yes [id number] CHOLESTEROL 1 tablet DAILY 1 tablet DAILY (route: oral) Med Classific ation: Cardiovas cular Therapy Agents Senna Lax 8.6 mg tablet 05-13 00:00: 00 Yes [id number] CONSTIPATIO N 1 tablet BEDTIME 1 tablet BEDTIME (route: oral) Med Classific ation: Gastroint estinal Therapy Agents sertraline 25 mg tablet 05-13 00:00: 00 Yes [id number] MOOD 1 tablet DAILY 1 tablet DAILY (route: oral) Med Classific ation: Central Nervous System Agents tolterodine ER 4 mg capsule,ext ended release 24 hr 05-13 00:00: 00 Yes [id number] OAB 1 capsule DAILY 1 capsule DAILY (route: oral) Med Classific ation: Genitouri nary Therapy Vitamin C 500 mg tablet 05-13 00:00: 00 Yes [id number] SUPPLEMENT 1 tablet DAILY 1 tablet DAILY (route: oral) Med Classific ation: Electroly te Balance-N utritiona l Products warfarin 2.5 mg tablet 05-24 00:00: 00 Yes [id number] ANTICOAG Per instruc tions 2 TIMES A WEEK Per instructio ns 2 TIMES A WEEK (route: oral) Med Classific ation: Hematolog ical Agents Vital Signs Vital Name Observation Time Observation Value Commen ts Temperature 2025-06-23 12:42:00.000 98 [degF] Temperature 2025-06-22 08:13:00.000 98.3 [degF] Temperature 2025-06-20 07:59:00.000 98.6 [degF] Temperature 2025-06-16 11:03:00.000 97.5 [degF] Temperature 2025-06-16 09:53:00.000 99 [degF] Temperature 2025-06-14 11:32:00.000 98.3 [degF] Temperature 2025-06-12 10:31:00.000 98 [degF] Temperature 2025-06-03 10:11:00.000 97.8 [degF] Temperature 2025-05-30 12:13:00.000 98.5 [degF] Temperature 2025-05-27 12:04:00.000 97.4 [degF] Temperature 2025-05-26 14:47:00.000 98.1 [degF] Temperature 2025-05-24 05:54:00.000 97.8 [degF] Temperature 2025-05-20 16:24:00.000 98.3 [degF] Temperature 2025-05-18 15:13:00.000 97.7 [degF] Temperature 2025-05-17 06:57:00.000 97.1 [degF] Temperature 2025-05-13 15:17:00.000 97.9 [degF] BMI (%) 2025-06-12 10:31:00.000 22 kg/m2 BMI (%) 2025-05-13 14:52:46.000 26 kg/m2 Height 2025-06-12 10:31:00.000 70 [in_us] Height 2025-05-13 14:52:18.000 70 [in_us] Pulse 2025-06-23 12:42:00.000 78 /min Pulse 2025-06-22 08:13:00.000 72 /min Pulse 2025-06-20 07:59:00.000 69 /min Pulse 2025-06-16 11:03:00.000 68 /min Pulse 2025-06-16 09:53:00.000 73 /min Pulse 2025-06-14 11:32:00.000 72 /min Pulse 2025-06-12 10:31:00.000 72 /min Pulse 2025-06-03 10:11:00.000 61 /min Pulse 2025-05-30 12:13:00.000 72 /min Pulse 2025-05-27 12:04:00.000 84 /min Pulse 2025-05-26 14:47:00.000 72 /min Pulse 2025-05-24 05:54:00.000 70 /min Pulse 2025-05-20 16:24:00.000 79 /min Pulse 2025-05-18 15:13:00.000 80 /min Pulse 2025-05-17 06:57:00.000 74 /min Pulse 2025-05-13 15:17:00.000 67 /min O2 Saturation (%) 2025-06-22 08:13:00.000 97 % O2 Saturation (%) 2025-06-20 07:59:00.000 97 % O2 Saturation (%) 2025-06-16 11:03:00.000 96 % O2 Saturation (%) 2025-06-16 09:53:00.000 97 % O2 Saturation (%) 2025-06-14 11:32:00.000 97 % O2 Saturation (%) 2025-06-12 10:31:00.000 95 % O2 Saturation (%) 2025-06-03 10:11:00.000 96 % O2 Saturation (%) 2025-05-27 12:04:00.000 96 % O2 Saturation (%) 2025-05-26 14:47:00.000 96 % O2 Saturation (%) 2025-05-24 05:55:00.000 95 % O2 Saturation (%) 2025-05-20 16:24:00.000 97 % O2 Saturation (%) 2025-05-18 15:13:00.000 97 % O2 Saturation (%) 2025-05-17 06:59:00.000 96 % O2 Saturation (%) 2025-05-13 15:17:00.000 95 % Respirations 2025-06-23 12:42:00.000 18 /min Respirations 2025-06-22 08:13:00.000 18 /min Respirations 2025-06-20 07:59:00.000 18 /min Respirations 2025-06-16 11:03:00.000 18 /min Respirations 2025-06-16 09:53:00.000 18 /min Respirations 2025-06-14 11:32:00.000 18 /min Respirations 2025-06-12 10:31:00.000 18 /min Respirations 2025-06-03 10:11:00.000 18 /min Respirations 2025-05-30 12:13:00.000 18 /min Respirations 2025-05-27 12:04:00.000 18 /min Respirations 2025-05-26 14:47:00.000 18 /min Respirations 2025-05-24 05:54:00.000 18 /min Respirations 2025-05-20 16:24:00.000 18 /min Respirations 2025-05-18 15:13:00.000 18 /min Respirations 2025-05-17 06:57:00.000 18 /min Respirations 2025-05-13 15:17:00.000 16 /min Weight (lbs) 2025-06-12 10:31:00.000 155 [lb_av] Weight (lbs) 2025-05-13 14:52:46.000 185 [lb_av] Systolic Blood Pressure 2025-06-23 12:42:00.000 108 mm [Hg] Systolic Blood Pressure 2025-06-22 08:13:00.000 110 mm [Hg] Systolic Blood Pressure 2025-06-20 07:59:00.000 118 mm [Hg] Systolic Blood Pressure 2025-06-16 11:03:00.000 100 mm [Hg] Systolic Blood Pressure 2025-06-16 09:53:00.000 110 mm [Hg] Systolic Blood Pressure 2025-06-14 11:32:00.000 118 mm [Hg] Systolic Blood Pressure 2025-06-12 10:31:00.000 112 mm [Hg] Systolic Blood Pressure 2025-06-03 10:11:00.000 104 mm [...] 15:17:00.000 108 mm [Hg] Diastolic Blood Pressure 2025-06-23 12:42:00.000 60 mm [Hg] Diastolic Blood Pressure 2025-06-22 08:13:00.000 60 mm [Hg] Diastolic Blood Pressure 2025-06-20 07:59:00.000 60 mm [Hg] Diastolic Blood Pressure 2025-06-16 11:03:00.000 64 mm [Hg] Diastolic Blood Pressure 2025-06-16 09:53:00.000 60 mm [Hg] Diastolic Blood Pressure 2025-06-14 11:32:00.000 60 mm [Hg] Diastolic Blood Pressure 2025-06-12 10:31:00.000 60 mm [Hg] Diastolic Blood Pressure 2025-06-03 10:11:00.000 [...] CONSULTING PHYSICIANS RN TO OBSERVE AND ASSESS, FUEL SYSTEM MAINTENANCE WORKER/RUBY DEVELOPER TO OBSERVE FOR RISK FOR FALLS AND INSTRUCT IN FALL PREVENTION, HOME SAFETY, MEDICATION MANAGEMENT, INFECTION PREVENTION, AND NUTRITION MANAGEMENT. RN/FUEL SYSTEM MAINTENANCE WORKER/RUBY DEVELOPER NURSE MAY PERFORM O2 SATURATION LEVEL ON ADMISSION AND PRN FOR RN TO ASSESS/FUEL SYSTEM MAINTENANCE WORKER TO OBSERVE PATIENT, WITH NOTIFICATION TO THE PHYSICIAN IF SATURATION IS 90% IN THE ABSENCE OF MORE SPECIFIC PARAMETERS FROM THE PHYSICIAN. AGENCY MAY PERFORM A RESUMPTION OF CARE VISIT FOLLOWING ANY HOSPITAL ADMISSION. RN/FUEL SYSTEM MAINTENANCE WORKER/RUBY DEVELOPER TO MONITOR CO-MORBID CONDITIONS LISTED ON THE PLAN OF CARE AND ANY NEW CONDITIONS THAT PRESENT THEMSELVES DURING THIS EPISODE TO IDENTIFY CHANGES AND INTERVENE TO MINIMIZE COMPLICATIONS. [code = RN TO OBSERVE, ASSESS, EVALUATE, AND DEVELOP AN INDIVIDUALIZED PLAN OF CARE. AGENCY MAY ACCEPT ORDERS FROM CONSULTING PHYSICIANS RN TO OBSERVE AND ASSESS, FUEL SYSTEM MAINTENANCE WORKER/RUBY DEVELOPER TO OBSERVE FOR RISK FOR FALLS AND INSTRUCT IN FALL PREVENTION, HOME SAFETY, MEDICATION MANAGEMENT, INFECTION PREVENTION, AND NUTRITION MANAGEMENT. RN/FUEL SYSTEM MAINTENANCE WORKER/RUBY DEVELOPER NURSE MAY PERFORM O2 SATURATION LEVEL ON ADMISSION AND PRN FOR RN TO ASSESS/FUEL SYSTEM MAINTENANCE WORKER TO OBSERVE PATIENT, WITH NOTIFICATION TO THE PHYSICIAN IF SATURATION IS 90% IN THE ABSENCE OF MORE SPECIFIC PARAMETERS FROM THE PHYSICIAN. AGENCY MAY PERFORM A RESUMPTION OF CARE VISIT FOLLOWING ANY HOSPITAL ADMISSION. RN/FUEL SYSTEM MAINTENANCE WORKER/RUBY DEVELOPER TO MONITOR CO-MORBID CONDITIONS LISTED ON THE PLAN OF CARE AND ANY NEW CONDITIONS THAT PRESENT THEMSELVES DURING THIS EPISODE TO IDENTIFY CHANGES AND INTERVENE TO MINIMIZE COMPLICATIONS.] Future Scheduled Test MEDICATION MANAGEMENT; RN/FUEL SYSTEM MAINTENANCE WORKER/RUBY DEVELOPER TO REVIEW MEDICATIONS FOR INTERACTIONS, EFFECTIVENESS OF DRUG THERAPY, AND SIGNS/SYMPTOMS OF ADVERSE REACTIONS. MAY INSTRUCT AND REINFORCE MEDICATION TEACHING RELATED TO THE USE OF MEDICATIONS, DOSAGE, FREQUENCY, PURPOSE, SIDE EFFECTS, AND TO REPORT COMPLICATIONS. [code = MEDICATION MANAGEMENT; RN/FUEL SYSTEM MAINTENANCE WORKER/RUBY DEVELOPER TO REVIEW MEDICATIONS FOR INTERACTIONS, EFFECTIVENESS OF DRUG THERAPY, AND SIGNS/SYMPTOMS OF ADVERSE REACTIONS. MAY INSTRUCT AND REINFORCE MEDICATION TEACHING RELATED TO THE USE OF MEDICATIONS, DOSAGE, FREQUENCY, PURPOSE, SIDE EFFECTS, AND TO REPORT COMPLICATIONS.] Future Scheduled Test ANTITHROMB OTIC MANAGEMENT; RN TO ASSESS AND TEACH, FUEL SYSTEM MAINTENANCE WORKER/RUBY DEVELOPER TO OBSERVE/TEACH/MONITOR EFFECTIVENESS OF ANTITHROMBOTIC THERAPY. RN/FUEL SYSTEM MAINTENANCE WORKER/RUBY DEVELOPER TO INSTRUCT ON SIGNS AND SYMPTOMS OF BLEEDING/ADVERSE REACTIONS TO REPORT TO PHYSICIAN. RN/FUEL SYSTEM MAINTENANCE WORKER/RUBY DEVELOPER TO PERFORM PT/INR VIA VENIPUNCTURE OR COAGUCHECK ORDERED RN/FUEL SYSTEM MAINTENANCE WORKER/RUBY DEVELOPER TO FAX/CALL IN RESULTS TO [facility] [code = ANTITHROMBOTIC MANAGEMENT; RN TO ASSESS AND TEACH, FUEL SYSTEM MAINTENANCE WORKER/RUBY DEVELOPER TO OBSERVE/TEACH/MONITOR EFFECTIVENESS OF ANTITHROMBOTIC THERAPY. RN/FUEL SYSTEM MAINTENANCE WORKER/RUBY DEVELOPER TO INSTRUCT ON SIGNS AND SYMPTOMS OF BLEEDING/ADVERSE REACTIONS TO REPORT TO PHYSICIAN. RN/FUEL SYSTEM MAINTENANCE WORKER/RUBY DEVELOPER TO PERFORM PT/INR VIA VENIPUNCTURE OR COAGUCHECK ORDERED RN/FUEL SYSTEM MAINTENANCE WORKER/RUBY DEVELOPER TO FAX/CALL IN RESULTS TO [facility]] Future Scheduled Test RISK FOR H OSPITALIZATION; RN TO ASSESS/TEACH, RUBY DEVELOPER/FUEL SYSTEM MAINTENANCE WORKER TO OBSERVE/TEACH PATIENT/CAREGIVER ON RISK FOR HOSPITALIZATION/EMERGENCY ROOM VISITS, TEACH SIGNS AND SYMPTOMS THAT PUT PATIENT AT RISK, WHEN TO NOTIFY NURSE/PHYSICIAN OF COMPLICATIONS/DECLINE, AND WHEN TO CALL 911. [code = RISK FOR HOSPITALIZATION; RN TO ASSESS/TEACH, RUBY DEVELOPER/FUEL SYSTEM MAINTENANCE WORKER TO OBSERVE/TEACH PATIENT/CAREGIVER ON RISK FOR HOSPITALIZATION/EMERGENCY [...] MANAG EMENT; RN TO ASSESS AND TEACH, RUBY DEVELOPER/FUEL SYSTEM MAINTENANCE WORKER TO OBSERVE AND TEACH AND PROVIDE EDUCATION ON PAIN MANAGEMENT TECHNIQUES. [code = PAIN MANAGEMENT; RN TO ASSESS AND TEACH, RUBY DEVELOPER/FUEL SYSTEM MAINTENANCE WORKER TO OBSERVE AND TEACH AND PROVIDE EDUCATION ON PAIN MANAGEMENT TECHNIQUES.] Future Scheduled Test BLOOD CLOT MANAGEMENT; RN TO ASSESS AND TEACH/ FUEL SYSTEM MAINTENANCE WORKER /RUBY DEVELOPER TO OBSERVE AND TEACH AND PROVIDE EDUCATION ON BLOOD CLOT MANAGEMENT. [code = BLOOD CLOT MANAGEMENT; RN TO ASSESS AND TEACH/ FUEL SYSTEM MAINTENANCE WORKER /RUBY DEVELOPER TO OBSERVE AND TEACH AND PROVIDE EDUCATION ON BLOOD CLOT MANAGEMENT.] Future Scheduled Test FALL REDUC TION MANAGEMENT; RN TO ASSESS AND OBSERVE, FUEL SYSTEM MAINTENANCE WORKER/RUBY DEVELOPER TO OBSERVE FALL RISK FACTORS AND EDUCATE PATIENT/CAREGIVER ON STRATEGIES TO MINIMIZE THE RISK OF FALLING. [code = FALL REDUCTION MANAGEMENT; RN TO ASSESS AND OBSERVE, FUEL SYSTEM MAINTENANCE WORKER/RUBY DEVELOPER TO OBSERVE FALL RISK FACTORS AND EDUCATE PATIENT/CAREGIVER ON STRATEGIES TO MINIMIZE THE RISK OF FALLING.] Future Scheduled Test PHYSICAL T HERAPIST TO EVALUATE FOR HOME EXERCISE PROGRAM [code = PHYSICAL THERAPIST TO EVALUATE FOR HOME EXERCISE PROGRAM] Future Scheduled Test AGENCY MAY PERFORM A RESUMPTION OF CARE VISIT FOLLOWING ANY HOSPITAL ADMISSION. PT TO EVALUATE, OBSERVE / ASSESS, AND MONITOR, CIGARETTE SELLER TO OBSERVE AND MONITOR, PROVIDE SKILLED THERAPEUTIC INTERVENTION, ACTIVITY, EDUCATION, AND TRAINING TO ADDRESS; PT/CIGARETTE SELLER TO PROVIDE GAIT TRAINING FOR IMPROVED MOBILITY AND /OR TO NORMALIZE GAIT PATTERN THERAPEUTIC EXERCISES AND ESTABLISHING A HOME EXERCISE PROGRAM (PT/CIGARETTE SELLER) PT/CIGARETTE SELLER TO PROVIDE STAIR TRAINING SIT TO/FROM STAND TRANSFERS (PT/CIGARETTE SELLER) CHAIR TRANSFERS (PT/CIGARETTE SELLER) PT TO ASSESS / CIGARETTE SELLER TO MONITOR FOR AND REPORT EARLY SIGNS OF ANTICOAGULANT TOXICITY TO THE PHYSICIAN AND/OR THE RN CLINICAL ALCOHOL RUBBER FOR PHYSICIAN NOTIFICATION AND TO PROVIDE PATIENT/CAREGIVER EDUCATION ON ANTICOAGULANT THERAPY PT / CIGARETTE SELLER TO MONITOR AND EDUCATE ON OXYGEN SATURATION DURING ADLS/IADLS, NOTIFY PHYSICIAN AND/OR THE RN CLINICAL ALCOHOL RUBBER FOR PHYSICIAN NOTIFICATION AND IF O2 SATS BELOW PHYSICIAN ORDERED PARAMETERS AFTER 10 MIN OF REST PT / CIGARETTE SELLER MAY EDUCATE ON PAIN MANAGEMENT CLINICALLY INDICATED, INCLUDING NON-PHARMACOLOGICAL PAIN REDUCTION TECHNIQUES AND USE OF CRYOTHERAPY OR HEAT UP TO 20 MIN AT A TIME FOR PAIN MANAGEMENT 4-6 TIMES PER DAY PT/CIGARETTE SELLER TO IDENTIFY FALL RISK FACTORS; EDUCATE THE PATIENT/CAREGIVER ON WAYS TO REDUCE FALL RISK FACTORS AND ESTABLISH HOME EXERCISE PROGRAM TO MINIMIZE FALL RISK. MAY TEACH THE PATIENT FLOOR RECOVERY WHEN CLINICALLY APPROPRIATE [code = AGENCY MAY PERFORM A RESUMPTION OF CARE VISIT FOLLOWING ANY HOSPITAL ADMISSION. PT TO EVALUATE, OBSERVE / ASSESS, AND MONITOR, CIGARETTE SELLER TO OBSERVE AND MONITOR, PROVIDE SKILLED THERAPEUTIC INTERVENTION, ACTIVITY, EDUCATION, AND TRAINING TO ADDRESS; PT/CIGARETTE SELLER TO PROVIDE GAIT TRAINING FOR IMPROVED MOBILITY AND /OR TO NORMALIZE GAIT PATTERN THERAPEUTIC EXERCISES AND ESTABLISHING A HOME EXERCISE PROGRAM (PT/CIGARETTE SELLER) PT/CIGARETTE SELLER TO PROVIDE STAIR TRAINING SIT TO/FROM STAND TRANSFERS (PT/CIGARETTE SELLER) CHAIR TRANSFERS (PT/CIGARETTE SELLER) PT TO ASSESS / CIGARETTE SELLER TO MONITOR FOR AND REPORT EARLY SIGNS OF ANTICOAGULANT TOXICITY TO THE PHYSICIAN AND/OR THE RN CLINICAL ALCOHOL RUBBER FOR PHYSICIAN NOTIFICATION AND TO PROVIDE PATIENT/CAREGIVER EDUCATION ON ANTICOAGULANT THERAPY PT / CIGARETTE SELLER TO MONITOR AND EDUCATE ON OXYGEN SATURATION DURING ADLS/IADLS, NOTIFY PHYSICIAN AND/OR THE RN CLINICAL ALCOHOL RUBBER FOR PHYSICIAN NOTIFICATION AND IF O2 SATS BELOW PHYSICIAN ORDERED PARAMETERS AFTER 10 MIN OF REST PT / CIGARETTE SELLER MAY EDUCATE ON PAIN MANAGEMENT CLINICALLY INDICATED, INCLUDING NON-PHARMACOLOGICAL PAIN REDUCTION TECHNIQUES AND USE OF CRYOTHERAPY OR HEAT UP TO 20 MIN AT A TIME FOR PAIN MANAGEMENT 4-6 TIMES PER DAY PT/CIGARETTE SELLER TO IDENTIFY FALL RISK FACTORS; EDUCATE THE PATIENT/CAREGIVER ON WAYS TO REDUCE FALL RISK FACTORS AND ESTABLISH HOME EXERCISE PROGRAM TO MINIMIZE FALL RISK. MAY TEACH THE PATIENT FLOOR RECOVERY WHEN CLINICALLY APPROPRIATE] Goal 2025-06-12 Patient Goal - TO BE ABLE TO WALK BETTER Goal Patient Goal - T O BE ABLE TO WALK BETTER, HEAL LEG Goal Provider Goal - A PLAN OF [...] Notes Progress Notes <paragraph>[Visit Date: 2024 by SANCHEZ HINOJOSA LPN]:</paragraph><paragraph>PATIENT ALERT AND ORIENTED X3 WITH FORGETFULNESS AT TIMES. PATIENTS LS CLEAR BILATERAL AND +1 EDEMA TO LEFT LOWER LEG. PATIENT DENIES ANY PAIN OR PULMONARY DISTRESS AT THIS TIME. SN OBSERVED WOUND TO LEFT LOWER LEG, BEEFY RED WITH GRANDULATED TISSUE PRESENT TO WOUNDBED. NO S/SX OF INFECTION NOTED. SN EDUCATED PATIENT ON SAFETY WHEN AMBULATING AND TRANSFERRING BY GETTING UP SLOWLY AND WEARING SUPPORTIVE FOOT WEAR WITH WALKER AT ALL TIMES. PATIENT VERBALIZED UNDERSTANDING. PATIENT IS HOMEBOUND RELATED TO DECREASE STRENGHT AND POOR ENDURANCE WITH THE NEED FOR A ASSISTED DEVICE TO AMBULATE FOR BALANCE. MAKING IT A TAXING EFFORT TO LEAVE THE HOME.</paragraph> <paragraph>[Visit Date: 2024 by SANCHEZ HINOJOSA LPN]:</paragraph><paragraph>PATIENT ALERT AND ORIENTED X3 WITH FORGETFULNESS AT TIMES. PATIENTS LS CLEAR BILATERAL AND NON PITTING EDEMA TO LOWER EXTREMITIES. PATIENT DENIES ANY PAIN OR PULMONARY DISTRESS AT THIS TIME. SN OBSERVED WOUND TO LEFT LOWER LEG, NO S/SX OF INFECTION NOTED, BEEFY RED WOUNDBED. PATIENT HAS WOUND CLINIC APPOINTMENT ON 06/24. SN EDUCATED PATIENT ON INCREASING PROTEIN IN DIET FOR WOUND HEALING AND TO INCREASE FLUIDS THROUGHOUT THE DAY TO HELP PREVENT UTI AND DEHYDRATION AND CONSTIPATION. PATIENT VERBALIZED UNDERSTANDING. PATIENT IS HOMEBOUND RELATED TO DECREASE STRENGHT AND POOR ENDURANCE WITH THE NEED FOR A ASSISTED DEVICE TO AMBULATE FOR BALANCE. MAKING IT A TAXING EFFORT TO LEAVE THE HOME.</paragraph> Encounters Start Date/Time End Date/Time Encounter Type Admission Type Attending Clinicians Care Facility Care Department Encounter ID Discharge Date Discharge Status Discharge Condition Discharge Reason Percent Goals Met 2025-05-13 00:00:00 2025-07-11 00:00:00 Outpatient NEW ADMISSION JOSE DJENNIFER CORRINE [facility] [place] [id number] [id number]
== END 2025-06-23 15:49 | disposition home or self-care (01) ==
LOC: HO.HMCH 14:23
PROVIDERS: PCP Internal Medicine; Visit Provider Internal Medicine
DX: I73.9 Peripheral vascular disease, unspecified (principal); E78.00 Pure hypercholesterolemia, unspecified; I82.431 Acute embolism and thrombosis of right popliteal vein; C61 Malignant neoplasm of prostate; S81.802A Unspecified open wound, left lower leg, initial encounter

== ENCOUNTER → 2025-06-23 14:23 | Outpatient (BNVA) | payer MEDICARE, SELFPAY | PROVIDERS: PCP Internal Medicine; Visit Provider Internal Medicine | DX: I82.431 Acute embolism and thrombosis of right popliteal vein (principal); I73.9 Peripheral vascular disease, unspecified; E78.00 Pure hypercholesterolemia, unspecified; C61 Malignant neoplasm of prostate; S81.802A Unspecified open wound, left lower leg, initial encounter; X58.XXXA Exposure to other specified factors, initial encounter; Y93.9 Activity, unspecified; Y92.9 Unspecified place or not applicable; Y99.9 Unspecified external cause status; Z79.01 Long term (current) use of anticoagulants | CPT/HCPCS: 99212 ==

== ENCOUNTER 2025-06-28 10:40 | Outpatient (AMB) | payer MEDICARE, SELFPAY ==
[2025-06-28 10:42] VITALS: BMI 23.6
--- NOTE | 2025-06-28 10:42 | A.OFFVIS_ITS ---
Vital Signs 06/28/25 10:42 Height 5 ft 8 in Weight 155 lb BMI 23.6 Intake Visit Reasons: 2 week wound check s/p DVT Intake Note: 2week hospital follow up s/p DVT Left LE, has IVC filter. VNA comes 3 times per week and goes to the woundCare center. Has been twice. Court Crier Required: No Accompanied by: Self / Same As Patient Allergies No Known Allergies Allergy (Mild, Verified 06/28/25 10:45) N/A HPI HPI 2 week wound check s/p DVT: Details: The patient is an 89-year-old male presenting with a follow-up for a new onset of Deep Vein Thrombosis (DVT). The DVT was recently diagnosed, and the patient is currently under treatment with warfarin. The patient reports a history of blood clots in the leg, with the current episode being the second occurrence. The patient has experienced fluctuations in blood pressure. He expressed concern about these fluctuations, although he has not experienced any clinical symptoms. The patient is also managing a wound, which is under the care of a wound care center. The wound is reportedly improving, and the patient is satisfied with the care provided by the nursing staff. [facility] Medical History Varicose veins of right lower extremity with inflammation Leg wound, right Decreased appetite Adult general medical exam Diarrhea Cellulitis Dysphagia Nausea Frequency of micturition Venous insufficiency COVID-19 virus infection Leukocytosis Normocytic anemia Hyponatremia Low sodium levels Hypercholesterolemia Prostate cancer Osteoarthritis, shoulder Surgical History History of radical prostatectomy Erectile dysfunction following urethral surgery Family History Father Diabetes Social History Household Members: Children Household Members Other:: daughter Housing: House Do you presently have visiting nurse or other home services: Yes Alcohol intake: never Patient Tobacco Use Status: Never used Tobacco Tobacco use type: Cigarette e-Cigarette/Vaping Use: Never Used Second Hand Smoke Exposure: No Advance Directives Date on File: 08/24/21 service: No Current occupational status: retired 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 Current occupational exposures/hazards: Yes (worked 'near' asbestos) Cognitive needs: Yes (cane) Hearing needs: No Vision needs: Yes Review of Systems Const All systems reviewed & are unremarkable except as noted in HPI and below Reports no additional complaints ENT Reports Normal hearing present Card Denies chest pain, Denies chest pain at rest, Denies chest pain with activity and Denies pedal edema Resp Denies cough GI Denies abdominal pain Musc Denies abnormal gait, Denies muscle cramps and Denies radiating pain into limb Skin/Breast Denies skin ulcer and Denies wounds Neuro Reports Normal hearing present and Denies abnormal gait Psych Reports no additional complaints Physical Exam Vital Signs: BMI result Body Mass Index 23.6 Const General: cooperative, healthy appearing and comfortable Orientation/consciousness: oriented to person, oriented to place and oriented to time HEENT Head: Yes normal to inspection Neck Neck: Yes normal visual inspection Carotids: no bruits Chest Chest palpation & inspection: normal inspection of the chest Resp Effort & Inspection: normal respiratory effort and able to speak in complete sentences Auscultation: clear to auscultation bilaterally, no crackles, no rales, no rhonchi and no wheezes Cardio Rate: regular rate Rhythm: regular rhythm Heart sounds: S1 normal heart sound present and S2 normal heart sound present Bruits: no carotid bruits Peripheral pulses: Peripheral pulses 2+ throughout GI Inspection: Yes normal to inspection Skin Wounds: no wounds Hair: normal Neuro General: oriented to person, oriented to place and oriented to time Cranial nerves: Yes CN's II-XII intact bilaterally and Yes Normal hearing present Cognition (Neuro): normal cognition Motor exam (neuro): 5/5 motor strength present throughout Extrem Other: venous exam: +2 edema with left calf wrapped General: No clubbing, No cyanosis and Yes edema Psych Appearance: grossly normal Mental Status: mental status grossly normal Speech and movement: Normal speech and movement present Assessment & Plan Assessment & Plan (1) DVT (deep venous thrombosis): Comment: 2022 with IVC filter, 01/2024 No evidence of acute deep venous thrombosis in the right lower extremity with some persistent chronic changes in the distal popliteal vein. 2. 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 3. Left-sided Leal's cyst. Code(s): I82.409 - Acute embolism and thrombosis of unspecified deep veins of unspecified lower extremity Category: Medical Qualifiers: DVT location: lower extremity Affected thrombotic vein of extremity: popliteal Chronicity: acute Laterality: right Qualified Code(s): I82.431 - Acute embolism and thrombosis of right popliteal vein Plan: At the current time he appears to be stable in terms of his lower extremities in the wound appears to be improving. Due to his overall age would manage this as conservatively as possible. He is on anticoagulation in regards to his DVT has been monitoring his INR levels to ensure therapeutic levels. Would recommend continued follow-up with [facility] for left calf wound. In addition he has had fluctuations in his blood pressure is which has been concerning and we do recommend follow-up with the primary care physician regarding that. He will follow up with us on an as-needed basis. Thank you for allowing us to assist in his care. If there are any questions or concerns please do not hesitate to contact us. Coding Level of Care Code Est Pt Level 4 (60095) Diagnoses Acute deep vein thrombosis (DVT) of popliteal vein of right lower extremity I82.431 DVT location: lower extremity Affected thrombotic vein of extremity: popliteal Chronicity: acute Laterality: right
--- OUTSIDE RECORDS SUMMARY | 2025-06-28 12:51 | XMS_ITS | Clinical Summary ---
Author Organization [facility] Address [address] [place] [address] Phone Care Team Providers Care Care Manager Cna Name Role Phone Bobbi Harris MD Primary Care Provider [phone] Allergies No known active allergies Medications atorvastatin [...] age to complete this topic Insurance Medicare [facility] Medicare [facility] Care Teams Care Manager Cna Relationship Specialty Start Date End Date Bobbi Harris MD [facility] [place] [address] [place], [place] PCP - General Internal Medicine 03/04/22
--- OUTSIDE RECORDS SUMMARY | 2025-06-28 12:51 | XMS_ITS | Patient Health Record ---
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 Problem Pain in limb (78673979) Pain in Limb (729.5) Active confirmed Plan Of Treatment Pending Test Test Name Order Date X ray : Foot, right 2V 12/06/2013 Insurance Providers Payer Name Payer Address Payer Phone Subscriber Number Group Number Insured Name Patient Relationship to Insured Coverage Start Date Coverage End Date Medicare [facility] [employer] [facility] [address] [place] [id number] [phone] [id number] Sukhwinder Maynard Self - patient is the insured [employer] [address] [place] [address] [id number] Sukhwinder Maynard Self - patient is the insured Medical (General) History Medical History History ICD Code prostate cancer Surgical History Surgery Date(Month/Year) prostate cancer 2000 AUS, AND BOTOX 100 UNITS INJECTED INTO B LADDER 12/31/13
--- OUTSIDE RECORDS SUMMARY | 2025-06-28 12:52 | XMS_ITS | Patient Health Record ---
Author Organization [facility] Address [address] [place] [address] Care Team Providers Care Hand Cloth Examiner Name Role Phone Po Bobbi TROY Primary Care Provider Warner Sinclair [phone] Allergies No Known Allergies Reason For Referral [...] W/U Status Risk Notes Problem Weight loss (634659315) Weight loss (R63.4) Active confirmed Problem Early satiety (343246335) Early satiety (R68.81) Active confirmed Problem Barium swallow abnormal (625570147) Abnormal barium swallow (R93.3) Active confirmed Plan Of Treatment Future Test Test Name Order Date COLONOSCOPY 07/09/2012 UPPER GI ENDOSCOPY [place] DILATION OF ESOPH 05/02/2022 Insurance Providers Payer Name Payer Address Payer Phone Subscriber Number Group Number Insured Name Patient Relationship to Insured Coverage Start Date Coverage End Date MEDICARE OF [place] [address] [place] [address] [id number] JOHN MINAYA Self - patient is the insured [employer] CLAIMS [address] [place] [phone] [id number] JOHN MINAYA Self - patient is the [...]
--- OUTSIDE RECORDS SUMMARY | 2025-07-10 20:00 | XMS_ITS | Clinical Summary ---
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 NON-STEROIDA L NON-INFLAM (NSAID) [...] 05-12 00:00: 00 05-20 23:59 :00 No [id number] CELLULITIS 1 capsule 3 TIMES DAILY 1 capsule 3 TIMES DAILY (route: oral) Med Classific ation: Anti-Infe ctive Agents warfarin 5 mg tablet 04-27 00:00: 00 05-16 23:59 :00 No [id number] DVT 1 tablet DAILY 1 tablet DAILY (route: oral) Med Classific ation: Hematolog ical Agents cyproheptad ine 4 mg tablet 04-18 00:00: 00 Yes [id number] ANTIHISTAMI NE 1 tablet AT BEDTIME 1 tablet AT BEDTIME (route: oral) Med Classific ation: Respirato ry Therapy Agents albuterol sulfate HFA 90 mcg/actuati on aerosol inhaler 05-13 00:00: 00 Yes [id number] WHEEZING 2 puff EVERY 4 HOURS 2 puff EVERY 4 HOURS (route: inhalation ) Med Classific ation: Respirato ry Therapy Agents cholecalcif rafy (vitamin D3) 25 mcg (1,000 unit) capsule 05-13 00:00: 00 Yes [id number] SUPPLEMENT 1 capsule DAILY 1 capsule DAILY (route: oral) Med Classific ation: Electroly te Balance-N utritiona l Products Culturelle 15 billion cell sprinkle capsule 05-13 00:00: 00 Yes [id number] PROBIOTIC 1 capsule DAILY 1 capsule DAILY (route: oral) Med Classific ation: Gastroint estinal Therapy Agents meloxicam 7.5 mg tablet 05-13 00:00: 00 Yes [id number] PAIN 1 tablet DAILY 1 tablet DAILY (route: oral) Med Classific ation: Analgesic , Anti-infl ammatory or Antipyret ic Miralax 17 gram/dose oral powder 05-13 00:00: 00 Yes [id number] CONSTIPATIO N 17 gram DAILY 17 gram DAILY (route: oral) Med Classific ation: Gastroint estinal Therapy Agents psyllium husk 0.52 gram capsule 05-13 00:00: 00 Yes [id number] CONSTIPATIO N 1.04 g DAILY 1.04 g DAILY (route: oral) Med Classific ation: Gastroint estinal Therapy Agents rosuvastati n 40 mg tablet 05-13 00:00: 00 Yes [id number] CHOLESTEROL 1 tablet DAILY 1 tablet DAILY (route: oral) Med Classific ation: Cardiovas cular Therapy Agents Senna Lax 8.6 mg tablet 05-13 00:00: 00 Yes [id number] CONSTIPATIO N 1 tablet BEDTIME 1 tablet BEDTIME (route: oral) Med Classific ation: Gastroint estinal Therapy Agents sertraline 25 mg tablet 05-13 00:00: 00 Yes [id number] MOOD 1 tablet DAILY 1 tablet DAILY (route: oral) Med Classific ation: Central Nervous System Agents tolterodine ER 4 mg capsule,ext ended release 24 hr 05-13 00:00: 00 Yes [id number] OAB 1 capsule DAILY 1 capsule DAILY (route: oral) Med Classific ation: Genitouri nary Therapy Vitamin C 500 mg tablet 05-13 00:00: 00 Yes [id number] SUPPLEMENT 1 tablet DAILY 1 tablet DAILY (route: oral) Med Classific ation: Electroly te Balance-N utritiona l Products warfarin 2.5 mg tablet 05-24 00:00: 00 Yes [id number] ANTICOAG Per instruc tions 2 TIMES A WEEK Per instructio ns 2 TIMES A WEEK (route: oral) Med Classific ation: Hematolog ical Agents Vital Signs Vital Name Observation Time Observation Value Commen ts Temperature 2025-06-27 08:34:00.000 97.7 [degF] Temperature 2025-06-23 12:42:00.000 98 [degF] Temperature 2025-06-22 [...] [in_us] Height 2025-05-13 14:52:18.000 70 [in_us] Pulse 2025-06-27 08:34:00.000 72 /min Pulse 2025-06-23 12:42:00.000 78 /min Pulse 2025-06-22 [...] 2025-05-13 15:17:00.000 67 /min O2 Saturation (%) 2025-06-27 08:34:00.000 97 % O2 Saturation (%) 2025-06-22 08:13:00.000 97 % [...] Saturation (%) 2025-05-13 15:17:00.000 95 % Respirations 2025-06-27 08:34:00.000 18 /min Respirations 2025-06-23 12:42:00.000 18 /min Respirations 2025-06-22 [...] 2025-05-13 14:52:46.000 185 [lb_av] Systolic Blood Pressure 2025-06-27 08:34:00.000 110 mm [Hg] Systolic Blood Pressure 2025-06-23 12:42:00.000 108 mm [...] 15:17:00.000 108 mm [Hg] Diastolic Blood Pressure 2025-06-27 08:34:00.000 60 mm [Hg] Diastolic Blood Pressure 2025-06-23 12:42:00.000 [...] CONSULTING PHYSICIANS RN TO OBSERVE AND ASSESS, TOBACCO CLOTH RECLAIMER/TODDLER CAREGIVER TO OBSERVE FOR RISK FOR FALLS AND INSTRUCT IN FALL PREVENTION, HOME SAFETY, MEDICATION MANAGEMENT, INFECTION PREVENTION, AND NUTRITION MANAGEMENT. RN/TOBACCO CLOTH RECLAIMER/TODDLER CAREGIVER NURSE MAY PERFORM O2 SATURATION LEVEL ON ADMISSION AND PRN FOR RN TO ASSESS/TOBACCO CLOTH RECLAIMER TO OBSERVE PATIENT, WITH NOTIFICATION TO THE PHYSICIAN IF SATURATION IS 90% IN THE ABSENCE OF MORE SPECIFIC PARAMETERS FROM THE PHYSICIAN. AGENCY MAY PERFORM A RESUMPTION OF CARE VISIT FOLLOWING ANY HOSPITAL ADMISSION. RN/TOBACCO CLOTH RECLAIMER/TODDLER CAREGIVER TO MONITOR CO-MORBID CONDITIONS LISTED ON THE PLAN OF CARE AND ANY NEW CONDITIONS THAT PRESENT THEMSELVES DURING THIS EPISODE TO IDENTIFY CHANGES AND INTERVENE TO MINIMIZE COMPLICATIONS. [code = RN TO OBSERVE, ASSESS, EVALUATE, AND DEVELOP AN INDIVIDUALIZED PLAN OF CARE. AGENCY MAY ACCEPT ORDERS FROM CONSULTING PHYSICIANS RN TO OBSERVE AND ASSESS, TOBACCO CLOTH RECLAIMER/TODDLER CAREGIVER TO OBSERVE FOR RISK FOR FALLS AND INSTRUCT IN FALL PREVENTION, HOME SAFETY, MEDICATION MANAGEMENT, INFECTION PREVENTION, AND NUTRITION MANAGEMENT. RN/TOBACCO CLOTH RECLAIMER/TODDLER CAREGIVER NURSE MAY PERFORM O2 SATURATION LEVEL ON ADMISSION AND PRN FOR RN TO ASSESS/TOBACCO CLOTH RECLAIMER TO OBSERVE PATIENT, WITH NOTIFICATION TO THE PHYSICIAN IF SATURATION IS 90% IN THE ABSENCE OF MORE SPECIFIC PARAMETERS FROM THE PHYSICIAN. AGENCY MAY PERFORM A RESUMPTION OF CARE VISIT FOLLOWING ANY HOSPITAL ADMISSION. RN/TOBACCO CLOTH RECLAIMER/TODDLER CAREGIVER TO MONITOR CO-MORBID CONDITIONS LISTED ON THE PLAN OF CARE AND ANY NEW CONDITIONS THAT PRESENT THEMSELVES DURING THIS EPISODE TO IDENTIFY CHANGES AND INTERVENE TO MINIMIZE COMPLICATIONS.] Future Scheduled Test MEDICATION MANAGEMENT; RN/TOBACCO CLOTH RECLAIMER/TODDLER CAREGIVER TO REVIEW MEDICATIONS FOR INTERACTIONS, EFFECTIVENESS OF DRUG THERAPY, AND SIGNS/SYMPTOMS OF ADVERSE REACTIONS. MAY INSTRUCT AND REINFORCE MEDICATION TEACHING RELATED TO THE USE OF MEDICATIONS, DOSAGE, FREQUENCY, PURPOSE, SIDE EFFECTS, AND TO REPORT COMPLICATIONS. [code = MEDICATION MANAGEMENT; RN/TOBACCO CLOTH RECLAIMER/TODDLER CAREGIVER TO REVIEW MEDICATIONS FOR INTERACTIONS, EFFECTIVENESS OF DRUG THERAPY, AND SIGNS/SYMPTOMS OF ADVERSE REACTIONS. MAY INSTRUCT AND REINFORCE MEDICATION TEACHING RELATED TO THE USE OF MEDICATIONS, DOSAGE, FREQUENCY, PURPOSE, SIDE EFFECTS, AND TO REPORT COMPLICATIONS.] Future Scheduled Test ANTITHROMB OTIC MANAGEMENT; RN TO ASSESS AND TEACH, TOBACCO CLOTH RECLAIMER/TODDLER CAREGIVER TO OBSERVE/TEACH/MONITOR EFFECTIVENESS OF ANTITHROMBOTIC THERAPY. RN/TOBACCO CLOTH RECLAIMER/TODDLER CAREGIVER TO INSTRUCT ON SIGNS AND SYMPTOMS OF BLEEDING/ADVERSE REACTIONS TO REPORT TO PHYSICIAN. RN/TOBACCO CLOTH RECLAIMER/TODDLER CAREGIVER TO PERFORM PT/INR VIA VENIPUNCTURE OR COAGUCHECK ORDERED RN/TOBACCO CLOTH RECLAIMER/TODDLER CAREGIVER TO FAX/CALL IN RESULTS TO [facility] TIMELY [code = ANTITHROMBOTIC MANAGEMENT; RN TO ASSESS AND TEACH, TOBACCO CLOTH RECLAIMER/TODDLER CAREGIVER TO OBSERVE/TEACH/MONITOR EFFECTIVENESS OF ANTITHROMBOTIC THERAPY. RN/TOBACCO CLOTH RECLAIMER/TODDLER CAREGIVER TO INSTRUCT ON SIGNS AND SYMPTOMS OF BLEEDING/ADVERSE REACTIONS TO REPORT TO PHYSICIAN. RN/TOBACCO CLOTH RECLAIMER/TODDLER CAREGIVER TO PERFORM PT/INR VIA VENIPUNCTURE OR COAGUCHECK ORDERED RN/TOBACCO CLOTH RECLAIMER/TODDLER CAREGIVER TO FAX/CALL IN RESULTS TO [facility] TIMELY] Future Scheduled Test RISK FOR H OSPITALIZATION; RN TO ASSESS/TEACH, TODDLER CAREGIVER/TOBACCO CLOTH RECLAIMER TO OBSERVE/TEACH PATIENT/CAREGIVER ON RISK FOR HOSPITALIZATION/EMERGENCY ROOM VISITS, TEACH SIGNS AND SYMPTOMS THAT PUT PATIENT AT RISK, WHEN TO NOTIFY NURSE/PHYSICIAN OF COMPLICATIONS/DECLINE, AND WHEN TO CALL 911. [code = RISK FOR HOSPITALIZATION; RN TO ASSESS/TEACH, TODDLER CAREGIVER/TOBACCO CLOTH RECLAIMER TO OBSERVE/TEACH PATIENT/CAREGIVER ON RISK FOR HOSPITALIZATION/EMERGENCY [...] MANAG EMENT; RN TO ASSESS AND TEACH, TODDLER CAREGIVER/TOBACCO CLOTH RECLAIMER TO OBSERVE AND TEACH AND PROVIDE EDUCATION ON PAIN MANAGEMENT TECHNIQUES. [code = PAIN MANAGEMENT; RN TO ASSESS AND TEACH, TODDLER CAREGIVER/TOBACCO CLOTH RECLAIMER TO OBSERVE AND TEACH AND PROVIDE EDUCATION ON PAIN MANAGEMENT TECHNIQUES.] Future Scheduled Test BLOOD CLOT MANAGEMENT; RN TO ASSESS AND TEACH/ TOBACCO CLOTH RECLAIMER /TODDLER CAREGIVER TO OBSERVE AND TEACH AND PROVIDE EDUCATION ON BLOOD CLOT MANAGEMENT. [code = BLOOD CLOT MANAGEMENT; RN TO ASSESS AND TEACH/ TOBACCO CLOTH RECLAIMER /TODDLER CAREGIVER TO OBSERVE AND TEACH AND PROVIDE EDUCATION ON BLOOD CLOT MANAGEMENT.] Future Scheduled Test FALL REDUC TION MANAGEMENT; RN TO ASSESS AND OBSERVE, TOBACCO CLOTH RECLAIMER/TODDLER CAREGIVER TO OBSERVE FALL RISK FACTORS AND EDUCATE PATIENT/CAREGIVER ON STRATEGIES TO MINIMIZE THE RISK OF FALLING. [code = FALL REDUCTION MANAGEMENT; RN TO ASSESS AND OBSERVE, TOBACCO CLOTH RECLAIMER/TODDLER CAREGIVER TO OBSERVE FALL RISK FACTORS AND EDUCATE PATIENT/CAREGIVER ON STRATEGIES TO MINIMIZE THE RISK OF FALLING.] Future Scheduled Test PHYSICAL T HERAPIST TO EVALUATE FOR HOME EXERCISE PROGRAM [code = PHYSICAL THERAPIST TO EVALUATE FOR HOME EXERCISE PROGRAM] Future Scheduled Test AGENCY MAY PERFORM A RESUMPTION OF CARE VISIT FOLLOWING ANY HOSPITAL ADMISSION. PT TO EVALUATE, OBSERVE / ASSESS, AND MONITOR, PRESIDENT & FOUNDER TO OBSERVE AND MONITOR, PROVIDE SKILLED THERAPEUTIC INTERVENTION, ACTIVITY, EDUCATION, AND TRAINING TO ADDRESS; PT/PRESIDENT & FOUNDER TO PROVIDE GAIT TRAINING FOR IMPROVED MOBILITY AND /OR TO NORMALIZE GAIT PATTERN THERAPEUTIC EXERCISES AND ESTABLISHING A HOME EXERCISE PROGRAM (PT/PRESIDENT & FOUNDER) PT/PRESIDENT & FOUNDER TO PROVIDE STAIR TRAINING SIT TO/FROM STAND TRANSFERS (PT/PRESIDENT & FOUNDER) CHAIR TRANSFERS (PT/PRESIDENT & FOUNDER) PT TO ASSESS / PRESIDENT [employer] FOUNDER TO MONITOR FOR AND REPORT EARLY SIGNS OF ANTICOAGULANT TOXICITY TO THE PHYSICIAN AND/OR THE RN CLINICAL CAR CLERK PULLMAN FOR PHYSICIAN NOTIFICATION AND TO PROVIDE PATIENT/CAREGIVER EDUCATION ON ANTICOAGULANT THERAPY PT / PRESIDENT & FOUNDER TO MONITOR AND EDUCATE ON OXYGEN SATURATION DURING ADLS/IADLS, NOTIFY PHYSICIAN AND/OR THE RN CLINICAL CAR CLERK PULLMAN FOR PHYSICIAN NOTIFICATION AND IF O2 SATS BELOW PHYSICIAN ORDERED PARAMETERS AFTER 10 MIN OF REST PT / PRESIDENT & FOUNDER MAY EDUCATE ON PAIN MANAGEMENT CLINICALLY INDICATED, INCLUDING NON-PHARMACOLOGICAL PAIN REDUCTION TECHNIQUES AND USE OF CRYOTHERAPY OR HEAT UP TO 20 MIN AT A TIME FOR PAIN MANAGEMENT 4-6 TIMES PER DAY PT/PRESIDENT & FOUNDER TO IDENTIFY FALL RISK FACTORS; EDUCATE THE PATIENT/CAREGIVER ON WAYS TO REDUCE FALL RISK FACTORS AND ESTABLISH HOME EXERCISE PROGRAM TO MINIMIZE FALL RISK. MAY TEACH THE PATIENT FLOOR RECOVERY WHEN CLINICALLY APPROPRIATE [code = AGENCY MAY PERFORM A RESUMPTION OF CARE VISIT FOLLOWING ANY HOSPITAL ADMISSION. PT TO EVALUATE, OBSERVE / ASSESS, AND MONITOR, PRESIDENT & FOUNDER TO OBSERVE AND MONITOR, PROVIDE SKILLED THERAPEUTIC INTERVENTION, ACTIVITY, EDUCATION, AND TRAINING TO ADDRESS; PT/PRESIDENT & FOUNDER TO PROVIDE GAIT TRAINING FOR IMPROVED MOBILITY AND /OR TO NORMALIZE GAIT PATTERN THERAPEUTIC EXERCISES AND ESTABLISHING A HOME EXERCISE PROGRAM (PT/PRESIDENT & FOUNDER) PT/PRESIDENT & FOUNDER TO PROVIDE STAIR TRAINING SIT TO/FROM STAND TRANSFERS (PT/PRESIDENT & FOUNDER) CHAIR TRANSFERS (PT/PRESIDENT & FOUNDER) PT TO ASSESS / PRESIDENT & FOUNDER TO MONITOR FOR AND REPORT EARLY SIGNS OF ANTICOAGULANT TOXICITY TO THE PHYSICIAN AND/OR THE RN CLINICAL CAR CLERK PULLMAN FOR PHYSICIAN NOTIFICATION AND TO PROVIDE PATIENT/CAREGIVER EDUCATION ON ANTICOAGULANT THERAPY PT / PRESIDENT & FOUNDER TO MONITOR AND EDUCATE ON OXYGEN SATURATION DURING ADLS/IADLS, NOTIFY PHYSICIAN AND/OR THE RN CLINICAL CAR CLERK PULLMAN FOR PHYSICIAN NOTIFICATION AND IF O2 SATS BELOW PHYSICIAN ORDERED PARAMETERS AFTER 10 MIN OF REST PT / PRESIDENT & FOUNDER MAY EDUCATE ON PAIN MANAGEMENT CLINICALLY INDICATED, INCLUDING NON-PHARMACOLOGICAL PAIN REDUCTION TECHNIQUES AND USE OF CRYOTHERAPY OR HEAT UP TO 20 MIN AT A TIME FOR PAIN MANAGEMENT 4-6 TIMES PER DAY PT/PRESIDENT & FOUNDER TO IDENTIFY FALL RISK FACTORS; EDUCATE THE [...] AND +1 EDEMA TO LEFT LOWER LEG. SN OBSERVED WOUND TO LEFT LOWER LEG, HEALING WELL EVIDENCE OF MEASUREMENT AND GEEFY GRANDULATED TISSUE PRESENT TO WOUNDBED, SMALL AMOUNT OF BLOODY DRAINAGE PRESENT ON OLD DRESSING. SN EDUCATED PATIENT ON S/SX OF INFECTION AND WHEN TO CALL US. PATIENT IS HOMEBOUND RELATED TO DECREASE STRENGHT AND POOR ENDURANCE WITH THE NEED FOR A ASSISTED DEVICE TO AMBULATE FOR BALANCE. MAKING IT A TAXING EFFORT TO LEAVE THE HOME WITHOUT THE ASSISTANCE OF ANOTHER PERSON.</paragraph> Encounters Start Date/Time End Date/Time Encounter Type Admission Type Attending [facility] Care Department Encounter ID Discharge Date Discharge Status Discharge Condition Discharge Reason Percent Goals Met 2025-05-13 00:00:00 2025-07-11 00:00:00 Outpatient NEW ADMISSION CORRINE ASIF [facility] [id number] 13.79
== END 2025-06-28 11:04 | disposition home or self-care (01) ==
LOC: HO.HVS 10:42
PROVIDERS: PCP Internal Medicine; Visit Provider Surgery Vascular Surgery
DX: I82.431 Acute embolism and thrombosis of right popliteal vein (principal)
CPT/HCPCS: 99214

== ENCOUNTER → 2025-06-28 10:40 | Outpatient (BNVA) | payer MEDICARE, SELFPAY | PROVIDERS: PCP Internal Medicine; Visit Provider Surgery Vascular Surgery | DX: I82.431 Acute embolism and thrombosis of right popliteal vein (principal) | CPT/HCPCS: 99212 ==

== ENCOUNTER 2025-08-24 10:00 | Outpatient (RCR) | payer MEDICARE, SELFPAY | END 2025-08-24 16:50 | disposition home or self-care (01) | LOC: HO.WCC 10:00 | PROVIDERS: PCP Internal Medicine; Visit Provider Surgery Surgical Oncology | DX: I87.332 Chronic venous hypertension (idiopathic) with ulcer and inflammation of left lower extremity (principal); L97.821 Non-pressure chronic ulcer of other part of left lower leg limited to breakdown of skin; I87.2 Venous insufficiency (chronic) (peripheral); Z86.718 Personal history of other venous thrombosis and embolism; Z92.3 Personal history of irradiation | CPT/HCPCS: 11042; 97597; 99213; 99214 ==